=== PATIENT | female | born 1955 | race Caucasian/White ===

== ENCOUNTER → 2021-10-23 | Outpatient (CLI) | payer SELFPAY ==
--- NOTE | 2021-10-23 15:35 | RAD_ITS ---
EXAM: XR LEFT KNEE COMPLETE, 4 OR MORE VIEWS CLINICAL INDICATION: PAIN TECHNIQUE: Four or more views of the left knee. This report was created using [employer] report generation technology. COMPARISON: None. FINDINGS: BONES/JOINTS: Narrowing and bony spurring of the patellofemoral joint. Mild marginal osteophytosis. No acute fracture, subluxation or joint effusion. SOFT TISSUES: Unremarkable. No soft tissue swelling or gas. No radiopaque foreign body. RAD/Knee 4 or More Views IMPRESSION: Moderate arthritic changes of joint. Electronically Signed: Dameon Velarde MD at 16:57 EDT ,
[2021-10-23 17:14] LABS: BUN 16 mg/dL (7-18); Creatinine, Serum 1.08 mg/dL (0.55-1.02); Glucose 147 mg/dL (74-106)
[2021-10-23 17:15] LABS: Anion Gap 6 (5-15); BUN/Creat Ratio 14.8 RATIO (10-20); Calcium,Total 9.3 mg/dL (8.5-10.1); Chloride 107 mmol/L (98-107); Cholesterol 205 mg/dL (200); EST Glomerular Filtration Rate 54 mL/min (>60); Est Glom Filt Rate - Afr Amer 65 mL/min (>60); High Density Lipoprotein 44 mg/dL; Potassium 3.7 mmol/L (3.5-5.1); Sodium Level 142 mmol/L (136-145); Triglycerides 206 mg/dL; Very Low Density Lipoprotein 41 mg/dL (5-40)
== END | disposition home or self-care (01) ==
PROVIDERS: PCP Family Medicine; Referring Provider Family Medicine; Visit Provider Family Medicine
DX: I10 Essential (primary) hypertension (principal); M25.562 Pain in left knee
CPT/HCPCS: 36415; 73564; 80048; 80061

== ENCOUNTER → 2023-07-22 | Outpatient (CLI) | payer MEDICARE, OTHER, SELFPAY ==
--- NOTE | 2023-07-22 08:15 | RAD_ITS ---
INDICATION: pain EXAMINATION/TECHNIQUE: X-RAY - LEFT XR Knee Complete 4 Views or More 4 VIEWS COMPARISON: Prior study dated: 10/23/2021. FINDINGS: SOFT TISSUES: No soft tissue swelling or gas. No radiopaque foreign body. BONES/JOINTS: No acute fracture or subluxation.. Mild medial subluxation of the distal femur with respect to the proximal tibia. Moderate to severe narrowing of the medial joint compartment essentially new since previous exam. Small subchondral cystic changes of the medial tibial plateau. Mild marginal degenerative spurs of the lateral tibial plateau unchanged. Moderate to severe degenerative arthrosis of the patellofemoral joint unchanged since the previous exam. No evidence of joint effusion. No sclerotic or destructive changes observed. RAD/Knee 4 or More Views IMPRESSION: Degenerative arthrosis of the left knee markedly worse than previous exam. Electronically Signed: Saurabh Townsend MD at 10:17 EDT ,
--- NOTE | 2023-07-22 08:16 | RAD_ITS ---
INDICATION: pain EXAMINATION/TECHNIQUE: X-RAY - RIGHT XR Knee Complete 4 Views or More 4 VIEWS COMPARISON: Prior study dated: 02/24/2015 FINDINGS: SOFT TISSUES: No soft tissue swelling or gas. Vascular calcifications. BONES/JOINTS: No evidence of acute fracture or dislocation. Normal alignment. Severe narrowing of the medial joint compartment with sclerosis and subchondral cystic changes of the medial tibial plateau markedly worse than the previous exam. Mild to moderate degenerative arthrosis of the lateral joint compartment. Severe degenerative arthrosis of the patellofemoral joint unchanged. No evidence of joint effusion RAD/Knee 4 or More Views IMPRESSION: Degenerative arthrosis of the right knee markedly worse than the previous exam. Electronically Signed: Saurabh Townsend MD at 10:19 EDT ,
--- NOTE | 2023-07-22 08:16 | RAD_ITS ---
INDICATION: pain EXAMINATION/TECHNIQUE: X-RAY - XR Hips Bilateral with Pelvis when performed; 2 Views COMPARISON: No relevant prior comparison study available FINDINGS: PELVIC BONES: No displaced fracture, destructive or sclerotic lesions. Note that overlapping bowel shadows may however obscure fine detail. Sacroiliac joints are unremarkable. No widening of the pubic symphysis. HIPS: Mild narrowing of the hip joints. Degenerative changes of the visualized lower lumbar spine. SOFT TISSUES: No soft tissue swelling or gas. RAD/Hips B/L min 2 views w/ Pelvis IMPRESSION: Degenerative changes in the lower lumbar spine. Mild narrowing of the hip joints. Electronically Signed: Saurabh Townsend MD at 10:18 EDT ,
== END | disposition home or self-care (01) ==
PROVIDERS: PCP Family Medicine; Referring Provider Family Medicine; Visit Provider Family Medicine
DX: M19.90 Unspecified osteoarthritis, unspecified site (principal)
CPT/HCPCS: 73521; 73564

== ENCOUNTER → 2023-09-26 | Outpatient (CLI) | payer MEDICARE, OTHER, SELFPAY ==
[2023-09-26 18:19] LABS: ALB/GLOB Ratio 0.9 RATIO (0.9-2.4); AST(SGOT) 10 U/L (15-37); Alanine Aminotransfer ALT/SGPT 20 U/L (13-56); Albumin, Serum 3.4 g/dL (3.2-5.0); Alkaline Phosphatase 76 U/L (45-117); Anion Gap 9 (5-15); BUN 28 mg/dL (7-18); BUN/Creat Ratio 21.7 RATIO (10-20); Calcium,Total 9.4 mg/dL (8.5-10.1); Chloride 103 mmol/L (98-107); Creatinine, Serum 1.29 mg/dL (0.55-1.02); EST Glomerular Filtration Rate 43 mL/min (>60); Est Glom Filt Rate - Afr Amer 53 mL/min (>60); Globulin 3.7 g/dL (2.2-4.2); Glucose 331 mg/dL (74-106); Potassium 3.8 mmol/L (3.5-5.1); Protein, Total 7.1 g/dL (6.4-8.2); Sodium Level 135 mmol/L (136-145)
== END | disposition home or self-care (01) ==
LOC: MFPLAB 15:11
PROVIDERS: Nurse Practitioner Family; PCP Family Medicine; Visit Provider Family Medicine
DX: I10 Essential (primary) hypertension (principal)
CPT/HCPCS: 36415; 80053

== ENCOUNTER 2023-09-28 19:14 | Emergency (ER) | payer MEDICARE, OTHER, SELFPAY ==
[2023-09-28 19:14] VITALS: BP 231/125; PULSE 74; RESP 16; TEMP 36.7; O2SAT 95; BMI 36.3
--- NOTE | 2023-09-28 20:10 | EKG12_ITS ---
Test Reason : Blood Pressure : / mmHG Vent. Rate : 067 BPM Atrial Rate : 067 BPM P-R Int : 164 ms QRS Dur : 090 ms QT Int : 408 ms P-R-T Axes : 036 015 060 degrees QTc Int : 431 ms Normal sinus rhythm Minimal voltage criteria for LVH, may be normal variant ( R in aVL ) Nonspecific ST abnormality Abnormal ECG Confirmed by CHRISTOPHER GARCIA, SHARAN ([id number]), metropolitan editor HANNA GARZA ([id number]) on 10/03/2023 6:11:34 AM Referred By: Confirmed By:AURORA WHITE MD
--- NOTE | 2023-09-28 20:25 | RAD_ITS ---
STUDY: X-RAY CHEST REASON FOR EXAM: Female, 68 years old. cough TECHNIQUE: Single AP portable view of the chest. COMPARISON: None. FINDINGS: There is hyperinflation of the lungs consistent with chronic obstructive lung disease (COPD). No infiltrates or effusions There is no demonstrated pleural abnormality. There is mild cardiac enlargement. Normal mediastinum and rosalina. Normal visualized pulmonary arteries. Normal visualized aortic arch and descending thoracic aorta. There are diffuse degenerative changes of the visualized thoracic spine. Normal visualized ribs, clavicles, and shoulders. There is no demonstrated abnormality of the visualized soft tissue structures of the upper abdomen. RAD/Chest 1 View (Portable) IMPRESSION: There are findings consistent with COPD. There is no evidence of acute chest disease. Electronically Signed: Dave Jurado MD at 21:09 EDT ,
--- NOTE | 2023-09-28 20:25 | EX.ED.DYSGE1 ---
HPI <NAMRATA Layton - Last Filed: 09/28/23 21:47> History of Present Illness Chief Complaint: Hypertension Narrative Narrative: Patient is a 68-year-old female with history of hypertension, obesity who presents to the emergency department for uncontrolled high blood pressure. Patient states she has not seen a doctor in 2 years, went to the doctor 2 days ago, she does not remember the top number, the bottom number was 110. Patient was placed on lisinopril/hydrochlorothiazide 20?12 0.5. Patient states today she was taking her blood pressure and it was 200/100. She started to have a headache, and she is here for evaluation. Patient denies any chest pain, states to have intermittent shortness of breath however she also states this is when she is walking and this is normal. She denies any lower leg edema. Denies any dizziness. PFSH <NAMRATA Layton - Last Filed: 09/28/23 21:47> [facility] Medical History (Updated 09/28/23 @ 21:46 by NAMRATA Layton) Incisional hernia of anterior abdominal wall without obstruction or gangrene Arthritis Heart murmur Home Medications ?Medication ?Instructions ?Recorded ?Last Taken ?Type aspirin 81 mg tablet,delayed 81 mg PO QDAY 05/15/17 05/19/17 History release (Adult Low Dose Aspirin) calcium carbonate 600 mg-vitamin 1 cap PO ONCE 05/15/17 05/19/17 History D3 5 mcg (200 unit) capsule lisinopril 20 1 tab PO DAILY 09/28/23 Unknown History mg-hydrochlorothiazide 12.5 mg tablet metformin 500 mg tablet 500 mg PO BID #60 tabs 09/28/23 Unknown Rx Allergy/AdvReac Type Severity Reaction Status Date / Time hydrocodone (From Vicodin) Allergy Unknown Unknown Verified 09/28/23 19:18 Family History Mother Hypertension Father Diabetes Son Seizures Surgical History (Updated 06/07/17 @ 09:33 by Savannah Juarez) History of incisional hernia repair Dislocation, shoulder closed S/P appendectomy S/P cholecystectomy Social History (Updated 06/13/17 @ 10:[address] Marcy Gibson MD) Smoking Status: Never smoker second hand exposure: No alcohol intake: never substance use type: does not use caffeine: No what type of physical activity do you participate in: none frequency: does not exercise seatbelt use: always ROS <NAMRATA Layton - Last Filed: 09/28/23 21:47> ROS ED ROS Narrative Constitutional: Negative for fever, chills, weight loss, weakness Eyes: Negative for vision loss, vision change, double vision ENT: Negative for any sore throat, ear pain, congestion Cardiovascular: Negative for any chest pain, tightness, palp. Positive elevated blood pressure itations Respiratory: Negative for any cough, sputum production, hemoptysis, dyspnea, dyspnea on exertion, orthopnea Gastrointestinal: Negative for any abdominal pain, nausea, vomiting, diarrhea, constipation, blood in stool, blood in vomit : Negative for any urinary frequency, dysuria, retention, blood in urine Muscle skeletal: Negative for any neck pain, back pain Neurological: Negative for any syncope, dizziness. Positive for headache Skin: Negative for any rashes, itching, abrasions, lacerations Psychiatric: Negative for any depression, anxiety, stress, suicidal ideation, homicidal ideation Hematologic: Negative for any excessive bruising, easy bleeding EXAM <NAMRATA Layton - Last Filed: 09/28/23 21:47> Physical Exam Narrative Exam Narrative: Vital signs reviewed. I checked the patient's blood pressure, on the monitor 215/115. HEET: Head normocephalic atraumatic, TMs clear bilaterally. Posterior pharynx is clear, moist mucous membranes. Nares clear bilaterally. Pupils are equal round reactive to light. Neck: Supple with no lymphadenopathy or tenderness. No signs of meningismus. Cardiac: Regular rate and rhythm no murmurs gallops or rubs, equal peripheral pulses bilaterally. Respiratory: Lungs clear to auscultation bilaterally. No chest tenderness. Abdomen: Soft, nontender, nondistended. No abdominal bruit or pulsatile masses. No hepatosplenomegaly Extremities: No peripheral edema, no signs of gross trauma or deformity. Active full range of motion of all extremities. Neuro: Cranial nerves II through XII intact, no focal neurological deficits. NIH stroke scale 0 Skin: Clean dry and intact with no rash, purpura, petechiae, vesicles or pustules. Backs/flank: No CVA tenderness, no midline spinal tenderness, no deformity. Psych: Normal mood and affect. No SI, HI or acute psychosis. Const Vital Signs: 09/28/23 19:14 09/28/23 19:43 09/28/23 21:30 Temperature 98.1 F Temperature Source Temporal Pulse Rate 74 Respiratory Rate 16 Respiratory Effort Normal Respiratory Pattern Normal Blood Pressure 231/125 H 184/96 H Blood Pressure Mean 160 125 Pulse Ox 95 Oxygen Delivery Method Room Air Positive well nourished and well developed General Appearance ED: well developed <Dr. Jesús Botello DO - Last Filed: 09/28/23 22:04> Physical Exam Const Vital Signs: 09/28/23 19:14 09/28/23 19:43 09/28/23 21:30 Temperature 98.1 F Temperature Source Temporal Pulse Rate 74 Respiratory Rate 16 Respiratory Effort Normal Respiratory Pattern Normal Blood Pressure 231/125 H 184/96 H Blood Pressure Mean 160 125 Pulse Ox 95 Oxygen Delivery Method Room Air MDM <NAMRATA Layton - Last Filed: 09/28/23 21:47> MDM Lab Data Labs: Laboratory Results - last 24 hr 09/28/23 09/28/23 20:23 20:27 WBC 15.2 H RBC 5.06 Hgb 14.5 Hct 45.2 MCV 89.3 MCH 28.7 MCHC 32.1 RDW Std Deviation 45.4 H RDW Coeff of Terrell 14.0 Plt Count 390 MPV 9.9 Immature Gran % (Auto) 0.600 Neut % (Auto) 72.8 H Lymph % (Auto) 18.7 L Calvert % (Auto) 7.2 Eos % (Auto) 0.5 Baso % (Auto) 0.2 Absolute Neuts (auto) 11.1 H Absolute Lymphs (auto) 2.84 Nucleated RBC % 0 Sodium 136 Potassium 3.6 Chloride 105 Carbon Dioxide 25.0 Anion Gap 6 BUN 30 H Creatinine 0.98 Estim Creat Clear Calc 64.43 Est GFR (MDRD) Af Amer 72 Est GFR (MDRD) Non-Af 59 L BUN/Creatinine Ratio 30.5 H Glucose 221 H Calcium 8.7 Troponin I High Sens 15 Urine Color Yellow Urine Clarity Clear Urine pH 6.0 Ur Specific [place] 1.010 Urine Protein Negative Urine Glucose (UA) Normal Urine Ketones Negative Urine Occult Blood Negative Urine Nitrite Negative Urine Bilirubin Negative Urine Urobilinogen Normal Ur Leukocyte Esterase Negative Urine RBC 0 SEEN Urine WBC 0 SEEN Ur Squamous Epith Cells 0 SEEN Urine Bacteria 0 SEEN Urine Mucus 0 SEEN Radiography Diagnostic Testing: Clinical Impression(s) from Imaging Studies Chest X-Ray 09/28/23 20:25 IMPRESSION: There are findings consistent with COPD. There is no evidence of acute chest disease. Electronically Signed: Dave Jurado MD at 21:09 EDT , EKG Normal sinus rhythm: Attestation: I personally reviewed and interpreted this EKG as follows: Interpretation: Sinus Rhythm Comments: Normal sinus rhythm, rate of 67 bpm, TX interval 164 ms, QRS duration 90 ms, no acute ST elevation, no acute infarct noted. Treatment and Re-Evaluation :: Differential diagnosis includes however is not limited to: Hypertensive emergency, hypertensive urgency, ACS, AR, anxiety Patient appears to be in no obvious respiratory distress vital signs show hypertension the remainder of normal. Patient looks nontoxic. Patient will receive basic laboratory values including troponin. Patient will be checked for anemia, kidney function, urinalysis. Chest x-ray will be ordered. Patient will be given IV hydralazine, reevaluated. Patient was given 10 mg of IV hydralazine. Patient CBC shows slight leukocytosis white blood count 15.2 could be reactive. Chemistries were unremarkable. Patient's glucose was 221 which is elevated she has no history of type 2 diabetes. Troponin was negative. EKG was unremarkable. Chest x-ray showed no acute process. Some chronic changes concerning for COPD. Patient's repeat blood pressure was 184/96. At this time, I do the patient can continue to go home and start her lisinopril/hydrochlorothiazide. I will also add metformin 500 mg twice a day. She does have a follow-up appointment on Saturday this upcoming week with her PCP. She was given return precautions to return for any worsening headache, fever chills nausea or vomiting. All questions answered stable for discharge. <Dr. Jesús Botello DO - Last Filed: 09/28/23 22:04> [facility] History & Record Review Discussion w/independent historian: Patient Lab Data Attestation: I reviewed the patient's lab results. Labs: Laboratory Results - last 24 hr 09/28/23 09/28/23 20:23 20:27 WBC 15.2 H RBC 5.06 Hgb 14.5 Hct 45.2 MCV 89.3 MCH 28.7 MCHC 32.1 RDW Std Deviation 45.4 H RDW Coeff of Terrell 14.0 Plt Count 390 MPV 9.9 Immature Gran % (Auto) 0.600 Neut % (Auto) 72.8 H Lymph % (Auto) 18.7 L [place]vert % (Auto) 7.2 Eos % (Auto) 0.5 Baso % (Auto) 0.2 Absolute Neuts (auto) 11.1 H Absolute Lymphs (auto) 2.84 Nucleated RBC % 0 Sodium 136 Potassium 3.6 Chloride 105 Carbon Dioxide 25.0 Anion Gap 6 BUN 30 H Creatinine 0.98 Estim Creat Clear Calc 64.43 Est GFR (MDRD) Af Amer 72 Est GFR (MDRD) Non-Af 59 L BUN/Creatinine Ratio 30.5 H Glucose 221 H Calcium 8.7 Troponin I High Sens 15 Urine Color Yellow Urine Clarity Clear Urine pH 6.0 Ur Specific [place] 1.010 Urine Protein Negative Urine Glucose (UA) Normal Urine Ketones Negative Urine Occult Blood Negative Urine Nitrite Negative Urine Bilirubin Negative Urine Urobilinogen Normal Ur Leukocyte Esterase Negative Urine RBC 0 SEEN Urine WBC 0 SEEN Ur Squamous Epith Cells 0 SEEN Urine Bacteria 0 SEEN Urine Mucus 0 SEEN Radiography Diagnostic Testing: Clinical Impression(s) from Imaging Studies Chest X-Ray 09/28/23 20:25 IMPRESSION: There are findings consistent with COPD. There is no evidence of acute chest disease. Electronically Signed: Dave Jurado MD at 21:09 EDT , Treatment and Re-Evaluation :: Differential diagnosis includes however is not limited to: Hypertensive emergency, hypertensive urgency, ACS, AR, anxiety Patient appears to be in no obvious respiratory distress vital signs show hypertension the remainder of normal. Patient looks nontoxic. Patient will receive basic laboratory values including troponin. Patient will be checked for anemia, kidney function, urinalysis. Chest x-ray will be ordered. Patient will be given IV hydralazine, reevaluated. Patient was given 10 mg of IV hydralazine. Patient CBC shows slight leukocytosis white blood count 15.2 could be reactive. Chemistries were unremarkable. Patient's glucose was 221 which is elevated she has no history of type 2 diabetes. Troponin was negative. EKG was unremarkable. Chest x-ray showed no acute process. Some chronic changes concerning for COPD. Patient's repeat blood pressure was 184/96. At this time, I do the patient can continue to go home and start her lisinopril/hydrochlorothiazide. I will also add metformin 500 mg twice a day. She does have a follow-up appointment on Saturday this upcoming week with her PCP. She was given return precautions to return for any worsening headache, fever chills nausea or vomiting. All questions answered stable for discharge. Attending note: 68-year-old female presenting to the emergency room with hypertension. Patient states that she was recently at her doctor's office due to elevated blood pressure (aware she cannot really tell me what the numbers were) she was started on lisinopril HCT combination. She comes to emergency tonight significantly elevated. She notes an associated headache. No chest pain shortness of breath. Exam is nonfocal. Normal neurologic exam heart regular without murmur lung sounds clear and equal. Blood pressure is significantly elevated. Patient received hydralazine. Basic blood work shows hyperglycemia in fact the patient has had some hyperglycemia recently. Patient does not carry history of diabetes. We can start her on some metformin. I advised her that she should really follow-up with primary care. She should continue to take her lisinopril HCTZ combo. She will most likely need to have his medication adjusted and possibly another medication added but it all depends on how she initially responds. At this point patient to be discharged home return if worsening symptoms Discharge Plan Triage Chief Complaint: Hypertension ED Midlevel Provider: Major Cervantes ED Provider: Jesús Botello Dx/Rx/DC Orders Clinical Impression: Essential hypertension, Hyperglycemia Instructions: Controlling High Blood Pressure, Diabetes and Heart Disease, ED Diabetic Hyperglycemia Prescriptions: New metformin 500 mg tablet 500 mg PO BID Qty: 60 0RF No Action aspirin [Adult Low Dose Aspirin] 81 mg tablet,delayed release (DR/EC) 81 mg PO QDAY calcium carbonate-vitamin D3 600 mg calcium- 200 unit capsule 1 cap PO ONCE lisinopril-hydrochlorothiazide 20-12.5 mg tablet 1 tab PO DAILY Primary Care Provider: Janey Camp Referrals: Janey Camp MD [Primary Care Provider] - Activity Restrictions/Additional Instructions: Take your blood pressure in the morning and at the nighttime and write it down. Take your blood pressure medicine in the morning. The metformin you will take 1 in the morning 1 in the evening. If your blood pressure gets greater than 200 systolic which is the top number, you may take another one of your lisinopril's. Keep your appointment on Saturday Print Language: Lithuanian Disposition Disposition: Home, Self Care
[2023-09-28 20:38] LABS: Bacteria 0 SEEN /hpf (None Seen); Mucous, Urine 0 SEEN /hpf (<or=2+); Red Blood Cells-Urine 0 SEEN /hpf (0-5); Squamous Epithelial Cells - UA 0 SEEN /hpf (5-10); White Blood Cells 0 SEEN /hpf (0-5)
[2023-09-28] MEDS: hydrALAZINE 20 MG/ML Vial 10 MG IV (20:39)
[2023-09-28 20:40] LABS: Absolute Lymphocyte Count 2.84 X10^3/uL (0.83-4.51); Absolute Neutrophil Count 11.1 X10^3/uL (2.0-7.7); Basophil# 0.03 X10^3/uL; Basophil% 0.2 % (0-1); Eosinophil# 0.07 X10^3/uL; Eosinophils% 0.5 % (0-5); Hematocrit 45.2 % (37-47); Hemoglobin 14.5 g/dL (12.0-15.0); Lymphocyte # 2.84 X10^3/ul (0.83-4.51); Lymphocyte % 18.7 % (19-41); Mean Corp Hgb Conc 32.1 g/dL (32-36); Mean Corpuscular Hgb 28.7 pg (27.0-32.0); Mean Corpuscular Volume 89.3 fL (81-99); Mean Platelet Vol. 9.9 fl (6.2-12.0); Monocyte# 1.09 X10^3/uL; Monocyte% 7.2 % (0-10); NRBC Flagged by Analyzer 0 % (0-5); Neutrophil # 11.09 X10^3/uL (2.7-7.7); Neutrophil % 72.8 % (47-70); Platelet Count 390 K/mm3 (150-450); RBC Distribution Width SD 45.4 fl (35.1-43.9); Red Blood Count 5.06 M/mm3 (4.2-5.4); White Blood Count 15.2 K/mm3 (4.4-11.0)
[2023-09-28 20:42] LABS: Color, Urine Yellow (Yellow); Glucose, Dipstick Normal (Normal); Ketone-Dipstick Negative (Negative); Leukocyte Esterase-Dipstick Negative /ul (Negative); Nitrite-Dipstick Negative (Negative); Occult Blood-Urine Negative /ul (Negative); Protein-Dipstick Negative (Negative); Urine Bilirubin Dipstick Negative (Negative); Urine Clarity Clear (Clear); Urine Urobilinogen Normal (Normal)
[2023-09-28 21:01] LABS: Anion Gap 6 (5-15); BUN 30 mg/dL (7-18); BUN/Creat Ratio 30.5 RATIO (10-20); Calcium,Total 8.7 mg/dL (8.5-10.1); Chloride 105 mmol/L (98-107); Creatinine, Serum 0.98 mg/dL (0.55-1.02); EST Glomerular Filtration Rate 59 mL/min (>60); Est Glom Filt Rate - Afr Amer 72 mL/min (>60); Estimated Creatinine Clearance 64.43 ml/min; Glucose 221 mg/dL (74-106); Potassium 3.6 mmol/L (3.5-5.1); Sodium Level 136 mmol/L (136-145); Troponin-I HS 15 pg/mL (3.0-54.0)
[2023-09-28 21:30] VITALS: BP 184/96
[2023-09-28 22:00] VITALS: BP 186/97; PULSE 82; RESP 16; TEMP 36.9; O2SAT 99
== END 2023-09-28 22:14 | disposition home or self-care (01) ==
PROVIDERS: Nurse Practitioner; Emergency Provider Emergency Medicine; PCP Family Medicine; Visit Provider Emergency Medicine
DX: I10 Essential (primary) hypertension (principal); E66.9 Obesity, unspecified; R73.9 Hyperglycemia, unspecified; Z79.82 Long term (current) use of aspirin; Z79.899 Other long term (current) drug therapy
CPT/HCPCS: 71045; 80048; 81001; 84484; 85025; 93005; 96374; 99283; A4216

== ENCOUNTER → 2023-11-13 | Outpatient (CLI) | payer MEDICARE, OTHER, SELFPAY ==
--- NOTE | 2023-11-13 10:29 | US_ITS ---
STUDY: ULTRASOUND TRANSVAGINAL CLINICAL: Female, 68 years old. POSTMENOPAUSE BLEEDING TECHNIQUE: Transvaginal COMPARISON: None. FINDINGS: Normal uterine size measuring 9.4 x 5.6 x 3.9 cm in maximal craniocaudal dimension. There are no myometrial masses. Normal endometrial thickness measuring 28 mm. There are no endometrial masses, and there is no fluid in the endometrial cavity. 4 cm exophytic heterogeneous mass of the left side of the lower uterine segment or cervix possibly consistent with an extra except subserosal fibroid. The ovaries are nonvisualized.. There is no free fluid in the pelvis. Polycystic ovary disease: No. US/Transvaginal Non- IMPRESSION: 1. Thickened endometrium worrisome for endometrial hyperplasia or possibly mass. Hysteroscopy may be useful. 2. Suspect 4 cm exophytic mass of the left side of the lower uterine segment or cervix possibly exophytic subserosal fibroid. Pelvic MRI may be useful. 3. Nonvisualization ovaries. Electronically Signed: Joshua Warren MD at 12:37 EDT ,
== END | disposition home or self-care (01) ==
LOC: US 10:26
PROVIDERS: PCP Family Medicine; Referring Provider Family Medicine; Visit Provider Family Medicine
DX: N95.0 Postmenopausal bleeding (principal)
CPT/HCPCS: 76830

== ENCOUNTER 2023-12-12 11:46 | Emergency (ER) | payer MEDICARE, OTHER, SELFPAY ==
[2023-12-12 11:47] VITALS: BP 209/121; BP 223/123; PULSE 76; PULSE 78; RESP 14; RESP 16; TEMP 36.1; O2SAT 96; BMI 34.9
--- NOTE | 2023-12-12 12:02 | EKG12_ITS ---
Test Reason : HTN Blood Pressure : / mmHG Vent. Rate : 071 BPM Atrial Rate : 071 BPM P-R Int : 164 ms QRS Dur : 082 ms QT Int : 418 ms P-R-T Axes : 043 010 098 degrees QTc Int : 454 ms Normal sinus rhythm Minimal voltage criteria for LVH, may be normal variant ( R in aVL ) Nonspecific ST and T wave abnormality Abnormal ECG Confirmed by CHRISTOPHER GARCIA, SHARAN ([id number]), editor publications CHAR HASTINGS ([id number]) on 12/16/2023 8:43:14 AM Referred By: Confirmed By:AURORA WHITE MD
--- NOTE | 2023-12-12 12:02 | EX.ED.DYSGE1 ---
HPI History of Present Illness Chief Complaint: Hypertension Detail of Chief Complaint: High blood pressure Informant: patient Narrative Narrative: Patient presents to the emergency department with complaint of elevated blood pressure. Patient states that he she was at the [facility] [place] because she needed to have a uterine biopsy and when they checked her blood pressure was elevated. After the biopsy they told her to come get evaluated in the emergency department. Patient has history of hypertension and does take lisinopril with hydrochlorothiazide and it and normally takes 2 tablets every morning of the 20 mg over 12.5 mg dose. Patient otherwise denies complaints other than she is feeling stressed. She denies chest pain or shortness of breath. Denies headaches. Denies recent illness. She denies any new medications. Patient states that at home typically when she checks her blood pressure it is in the 160s systolic over about 100 diastolic. [facility] Medical History Incisional hernia of anterior abdominal wall without obstruction or gangrene Arthritis Heart murmur Home Medications ?Medication ?Instructions ?Recorded ?Last Taken ?Type aspirin 81 mg tablet,delayed 81 mg PO QDAY 05/15/17 05/19/17 History release (Adult Low Dose Aspirin) calcium carbonate 600 mg-vitamin 1 cap PO ONCE 05/15/17 05/19/17 History D3 5 mcg (200 unit) capsule lisinopril 20 1 tab PO DAILY 09/28/23 Unknown History mg-hydrochlorothiazide 12.5 mg tablet metformin 500 mg tablet 500 mg PO BID #60 tabs 09/28/23 Unknown Rx Allergy/AdvReac Type Severity Reaction Status Date / Time hydrocodone (From Vicodin) Allergy Unknown Unknown Verified 12/12/23 11:47 Family History Mother Hypertension Father Diabetes Son Seizures Surgical History History of incisional hernia repair Dislocation, shoulder closed S/P appendectomy S/P cholecystectomy Social History Smoking Status: Never smoker second hand exposure: No alcohol intake: never substance use type: does not use caffeine: No what type of physical activity do you participate in: none frequency: does not exercise seatbelt use: always ROS ROS ED ROS Narrative Hypertension Review of Systems ROS Unobtainable: other Constitutional Constitutional ED: Reports lethargy; Denies chills, fever(s), sweats or weight loss Eyes Eyes: Denies blurry vision, change in vision or diplopia ENT ENT ED: Denies rhinorrhea or sore throat Cardiovascular Cardiovascular: Denies chest pain, orthopnea or racing heartbeat Respiratory/Chest Respiratory/Chest: Denies cough, dyspnea, dyspnea on exertion, orthopnea or sputum Gastrointestinal Gastrointestinal: Denies abdominal pain, diarrhea, nausea or vomiting Genitourinary Genitourinary ED: Denies dysuria, hematuria or urinary frequency Musculoskeletal Musculoskeletal: Denies arthralgias, back pain, myalgias or neck pain Integumentary Denies abscess, Abrasions or rash Neurologic Neurologic: Denies headache(s) or weakness Psychiatric Psychiatric: Denies anxiety, depression or suicidal thoughts Endocrine Endocrinology: Denies polydipsia, polyphagia or polyuria Hematologic/Lymphatic Hematologic/Lymphatic: Denies easy bleeding, easy bruising or lymphadenopathy Allergic/Immunologic Allergic/Immunologic ED: Denies mouth swelling, tongue swelling or urticaria EXAM Physical Exam Const Vital Signs: 12/12/23 11:47 12/12/23 11:47 12/12/23 12:01 Temperature 97 F L Temperature Source Temporal Pulse Rate 76 78 Respiratory Rate 14 16 Respiratory Pattern Normal Blood Pressure 223/123 H 209/121 H Blood Pressure Mean 156 150 Pulse Ox 96 96 Oxygen Delivery Method Room Air Room Air Positive well nourished and well developed General Appearance ED: well developed and NAD HEENT Reports TM's clear and moist mucous membranes normocephalic and atraumatic; Negative for trauma or tenderness Tympanic Membrane ED: Yes TM's clear Eyes PERRL and EOMs intact bilaterally General Eye ED: Negative for pale conjunctiva or scleral icterus Neck no lymphadenopathy, supple and no JVD General: Negative for tenderness Chest Wall inspection of chest normal and palpation of chest normal Chest: Negative for tenderness Resp normal respiratory effort and clear to auscultation bilaterally Effort and Inspection: Negative for respiratory distress or pain with movement Auscultation: Negative for rhonchi, wheezes or diminished lung sounds Cardio regular rate, regular rhythm, S1 normal heart sound, S2 normal heart sound and no murmurs Peripheral Pulses: pulses 2+ throughout GI normal to inspection, nondistended, normoactive bowel sounds, soft to palpation, non-tender, non-distended and no masses Back/Spine no CVA tenderness and no thoracic nor lumbar tenderness Extremity normal to inspection General Extremety ED: Negative for edema General Extremity: Negative for edema Neuro oriented x3, CN's II-XII intact bilaterally, no sensory deficits noted and gait normal Sensorium / Orientation: awake, alert, oriented to person, oriented to place and oriented to time Motor Exam: strength 5/5 throughout and strength abnormal Psych mental status grossly normal Skin no rashes or lesions noted and no wounds MDM MDM MDM Narrative Medical decision making narrative: Patient presents with asymptomatic hypertension. She was getting ready to have a uterine biopsy. Patient states has been stressed and nervous. Denies chest pain or shortness of breath. On arrival blood pressure elevated initially 223/123. Patient placed on a media monitor. EKG obtained showed a sinus rhythm with ventricular rate of [address] changes. CBC with differential of patient awake at 11.1 with hemoglobin 13.7 and platelet count of 333. Chemistry is unremarkable. Troponin normal at 11. Urinalysis unremarkable. While in the department she was not medicated and without treatment her latest blood pressure 144/91. Clinically she is asymptomatic and looks well. Will discharge to home diagnose hypertension. She is advised to take her blood pressure daily and keep a journal and follow-up with her primary care physician within next 5 to 7 days. Patient to return if severe headache, chest pain, shortness of breath, or condition worsening way. Lab Data Attestation: I reviewed the patient's lab results. Labs: Laboratory Results - last 24 hr 12/12/23 12:09 WBC 11.1 H RBC 4.76 Hgb 13.7 Hct 42.6 MCV 89.5 MCH 28.8 MCHC 32.2 RDW Std Deviation 47.3 H RDW Coeff of Terrell 14.4 Plt Count 333 MPV 9.9 Immature Gran % (Auto) 0.400 Neut % (Auto) 58.7 Lymph % (Auto) 31.2 Howard % (Auto) 6.0 Eos % (Auto) 3.1 Baso % (Auto) 0.6 Absolute Neuts (auto) 6.5 Absolute Lymphs (auto) 3.47 Nucleated RBC % 0 Sodium 143 Potassium 3.4 L Chloride 107 Carbon Dioxide 29.0 Anion Gap 7 BUN 22 H Creatinine 0.90 Estim Creat Clear Calc 68.70 Est GFR (MDRD) Af Amer 79 Est GFR (MDRD) Non-Af 66 BUN/Creatinine Ratio 24.4 H Glucose 111 H Calcium 9.5 Troponin I High Sens 11 Urine Color Yellow Urine Clarity Clear Urine pH 5.0 Ur Specific Gary 1.025 Urine Protein 30 H Urine Glucose (UA) Normal Urine Ketones Negative Urine Occult Blood 250 H Urine Nitrite Negative Urine Bilirubin Negative Urine Urobilinogen Normal Ur Leukocyte Esterase 25 H Urine RBC 0 SEEN Urine WBC 0-5 SEEN Ur Squamous Epith Cells 5-10 SEEN Urine Bacteria 0 SEEN Urine Mucus 1+ EKG Initial EKG: Attestation: I personally reviewed and interpreted this EKG as follows: Comments: Sinus rhythm with a ventricular rate of [address] changes Prior EKG tracings: available for review Prior: Unchanged Discharge Plan Triage Chief Complaint: Hypertension ED Provider: Chica Marin Dx/Rx/DC Orders Clinical Impression: Hypertension Instructions: ED Hypertension, Established Prescriptions: No Action aspirin [Adult Low Dose Aspirin] 81 mg tablet,delayed release (DR/EC) 81 mg PO QDAY calcium carbonate-vitamin D3 600 mg calcium- 200 unit capsule 1 cap PO ONCE lisinopril-hydrochlorothiazide 20-12.5 mg tablet 1 tab PO DAILY metformin 500 mg tablet 500 mg PO BID Qty: 60 0RF Primary Care Provider: Janey Camp Referrals: Janey Camp MD [Primary Care Provider] - Activity Restrictions/Additional Instructions: Follow-up with Dr. Camp within the next 5 to 7 days. Print Language: Cameroonian Disposition Disposition: Home, Self Care
[2023-12-12 12:21] LABS: Bacteria 0 SEEN /hpf (None Seen); Red Blood Cells-Urine 0 SEEN /hpf (0-5)
[2023-12-12 12:31] LABS: Absolute Lymphocyte Count 3.47 X10^3/uL (0.83-4.51); Absolute Neutrophil Count 6.5 X10^3/uL (2.0-7.7); Basophil# 0.07 X10^3/uL; Basophil% 0.6 % (0-1); Eosinophil# 0.34 X10^3/uL; Eosinophils% 3.1 % (0-5); Hematocrit 42.6 % (37-47); Hemoglobin 13.7 g/dL (12.0-15.0); Lymphocyte # 3.47 X10^3/ul (0.83-4.51); Lymphocyte % 31.2 % (19-41); Mean Corp Hgb Conc 32.2 g/dL (32-36); Mean Corpuscular Hgb 28.8 pg (27.0-32.0); Mean Corpuscular Volume 89.5 fL (81-99); Mean Platelet Vol. 9.9 fl (6.2-12.0); Monocyte# 0.67 X10^3/uL; NRBC Flagged by Analyzer 0 % (0-5); Neutrophil # 6.54 X10^3/uL (2.7-7.7); Neutrophil % 58.7 % (47-70); Platelet Count 333 K/mm3 (150-450); RBC Distribution Width CV 14.4 % (11.6-14.6); RBC Distribution Width SD 47.3 fl (35.1-43.9); Red Blood Count 4.76 M/mm3 (4.2-5.4); White Blood Count 11.1 K/mm3 (4.4-11.0)
[2023-12-12 12:45] LABS: Color, Urine Yellow (Yellow); Glucose, Dipstick Normal (Normal); Ketone-Dipstick Negative (Negative); Leukocyte Esterase-Dipstick 25 /ul (Negative); Nitrite-Dipstick Negative (Negative); Occult Blood-Urine 250 /ul (Negative); Protein-Dipstick 30 mg/dl (Negative); Specific Gravity, Urine 1.025 (1.002-1.030); Urine Bilirubin Dipstick Negative (Negative); Urine Clarity Clear (Clear); Urine Urobilinogen Normal (Normal)
[2023-12-12 12:48] LABS: Anion Gap 7 (5-15); BUN 22 mg/dL (7-18); BUN/Creat Ratio 24.4 RATIO (10-20); Calcium,Total 9.5 mg/dL (8.5-10.1); Chloride 107 mmol/L (98-107); EST Glomerular Filtration Rate 66 mL/min (>60); Est Glom Filt Rate - Afr Amer 79 mL/min (>60); Glucose 111 mg/dL (74-106); Potassium 3.4 mmol/L (3.5-5.1); Sodium Level 143 mmol/L (136-145); Troponin-I HS 11 pg/mL (3.0-54.0)
[2023-12-12 13:01] LABS: Mucous, Urine 1+ /hpf (<or=2+); Squamous Epithelial Cells - UA 5-10 SEEN /hpf (5-10); White Blood Cells 0-5 SEEN /hpf (0-5)
[2023-12-12 13:11] VITALS: BP 144/92; PULSE 68; RESP 19; TEMP 36.4; O2SAT 94
== END 2023-12-12 13:15 | disposition home or self-care (01) ==
PROVIDERS: Emergency Provider Emergency Medicine; PCP Family Medicine; Visit Provider Emergency Medicine
DX: I10 Essential (primary) hypertension (principal); Z79.899 Other long term (current) drug therapy
CPT/HCPCS: 80048; 81001; 84484; 85025; 88305; 93005; 99284; A4216

== ENCOUNTER → 2023-12-12 | Outpatient (CLI) | payer MEDICARE, OTHER, SELFPAY ==
--- NOTE | 2023-12-12 11:15 | EMB_PTH ---
PATIENT: FRANCHESKA CROSS LOC: [facility] U#:[id number] AGE/SX: 68/F ROOM: RE12/12/[address]: ANMRATA Aguilar : 1955 BED: DIS: 12/12/2023 SPEC #: [id number] RECD: 12/12/23 14:14 STATUS: MARISA REGeeta #: [id number] NICOLE: 12/12/23 11:[address]: Yen Felder NP DEPT: SURGICAL PATHOLOGY RECD BY: Muna Calero ENTERED: 12/13/23 07:11 SP TYPE: ENDOM BX/C CHILAN[place] DR: Dr. Janey Camp MD Tissues: Endometrium, NOS Procedures: Surgery Specimen Level IV HEADER OPERATION: Endometrial biopsy PRE-OP DIAGNOSIS: Postmenopausal bleeding TISSUE SUBMITTED: Endometrial lining MICROSCOPIC DIAGNOSIS Endometrial biopsy: Simple cystic hyperplasia without atypia. See ender. 12/16/2023 COMMENT Clinical correlation and appropriate follow up are necessary. Case has been reviewed in consultation with Dr. Ware who concurs with the above diagnosis. IDC:AM MICROSCOPIC DESCRIPTION Slides are reviewed. GROSS DESCRIPTION Received is one container labeled with the patient's name and not further designated. The specimen consists of multiple irregular fragments of hemorrhagic soft tissue mixed with mucoid tissue that in aggregate measure 2.5 x 1.8 x 0.1 cm. The specimen is totally submitted in one cassette. GWEN/ 12/13/2023 TC:5 CPT:04361
== END | disposition home or self-care (01) ==
LOC: LABSPEC 14:44
PROVIDERS: PCP Family Medicine; Referring Provider Nurse Practitioner Women's Health; Visit Provider Nurse Practitioner Women's Health
DX: N95.0 Postmenopausal bleeding (principal)
CPT/HCPCS: 88305

== ENCOUNTER → 2023-12-31 | Outpatient (CLI) | payer MEDICARE, OTHER, SELFPAY ==
[2023-12-31 12:37] LABS: Protein, Urine (Random) 6.9 mg/dL (<11.9); Protein:Creat Ratio 102 mg/g CRE (0-200)
[2023-12-31 14:03] LABS: Anion Gap 9 (5-15); BUN 24 mg/dL (7-18); BUN/Creat Ratio 28.7 RATIO (10-20); Calcium,Total 9.7 mg/dL (8.5-10.1); Chloride 104 mmol/L (98-107); Cholesterol 224 mg/dL (200); Creatinine, Serum 0.84 mg/dL (0.55-1.02); EST Glomerular Filtration Rate 72 mL/min (>60); Est Glom Filt Rate - Afr Amer 87 mL/min (>60); Glucose 170 mg/dL (74-106); High Density Lipoprotein 47 mg/dL; Potassium 3.4 mmol/L (3.5-5.1); Sodium Level 140 mmol/L (136-145); Triglycerides 151 mg/dL; Very Low Density Lipoprotein 30 mg/dL (5-40)
== END | disposition home or self-care (01) ==
LOC: MTLAB 10:19
PROVIDERS: PCP Family Medicine; Referring Provider Family Medicine; Visit Provider Family Medicine
DX: I10 Essential (primary) hypertension (principal)
CPT/HCPCS: 36415; 80048; 80061; 82570; 84156

== ENCOUNTER 2024-02-04 10:28 | Day surgery (SDC) | payer MEDICARE, OTHER, SELFPAY ==
--- NOTE | 2024-01-30 08:32 | EKG12_ITS ---
Test Reason : PRE OP Blood Pressure : / mmHG Vent. Rate : 072 BPM Atrial Rate : 072 BPM P-R Int : 166 ms QRS Dur : 078 ms QT Int : 398 ms P-R-T Axes : 042 010 074 degrees QTc Int : 435 ms Normal sinus rhythm with sinus arrhythmia Nonspecific ST and T wave abnormality Abnormal ECG Confirmed by Marcelo Vizcaino ([id number]), editorial intern HANNA GARZA ([id number]) on 01/31/2024 5:59:52 AM Referred By: Selina Beal Confirmed By:Marcelo Vizcaino
[2024-01-30 10:28] LABS: ALB/GLOB Ratio 1.2 RATIO (0.9-2.4); AST(SGOT) 14 U/L (15-37); Alanine Aminotransfer ALT/SGPT 17 U/L (13-56); Albumin, Serum 3.6 g/dL (3.2-5.0); Alkaline Phosphatase 49 U/L (45-117); Anion Gap 5 (5-15); BUN 20 mg/dL (7-18); BUN/Creat Ratio 22.5 RATIO (10-20); Calcium,Total 9.3 mg/dL (8.5-10.1); Chloride 104 mmol/L (98-107); Creatinine, Serum 0.89 mg/dL (0.55-1.02); EST Glomerular Filtration Rate 67 mL/min (>60); Est Glom Filt Rate - Afr Amer 81 mL/min (>60); Globulin 3.1 g/dL (2.2-4.2); Glucose 128 mg/dL (74-106); Potassium 3.3 mmol/L (3.5-5.1); Protein, Total 6.7 g/dL (6.4-8.2); Sodium Level 141 mmol/L (136-145)
[2024-01-30 10:31] LABS: Hemoglobin A1c 6.6 % (3.8-5.6)
[2024-01-30 10:37] LABS: AST(SGOT) 8 U/L (15-37); Alanine Aminotransfer ALT/SGPT 18 U/L (13-56); Cholesterol 151 mg/dL (200); High Density Lipoprotein 55 mg/dL; Triglycerides 130 mg/dL; Very Low Density Lipoprotein 26 mg/dL (5-40)
[2024-02-04] VITALS (7 sets, daily range): BP systolic 119–140; BP diastolic 72–87; PULSE 69–77; RESP 14–20; TEMP 36.2–37; O2SAT 93–97; BMI 34.0
--- NOTE | 2024-02-04 07:35 | PCM.HP.BLA ---
History and Physical Date of Admission: 02/04/24 Intake Vital Signs 12/11/2410:47 01/23/2413:13 01/23/2413:21 Height 5 ft 6 in 5 ft 6 in 5 ft 6 in Weight: 213 lb BMI 34.3 BP 149/79 H Blood Pressure Location Lt brachial Position Sitting Intake Visit Reasons: consult/preop D&C with [facility] Meal Temperer Required: No Is patient in pain?: Yes (arthritis pain) Allergies hydrocodone (From Vicodin) Allergy (Unknown, Verified 01/24/24 13:13) Unknown Medications ?Medication ?Instructions ?Recorded ?Confirmed ?Type aspirin 81 mg tablet,delayed 81 mg PO QDAY 05/15/17 01/24/24 History release (Adult Low Dose Aspirin) calcium carbonate 600 mg-vitamin 1 cap PO ONCE 05/15/17 01/22/24 History D3 5 mcg (200 unit) capsule lisinopril 20 2 tab PO DAILY 09/28/23 01/24/24 History mg-hydrochlorothiazide 12.5 mg tablet metformin 500 mg tablet 500 mg PO BID #60 tabs 09/28/23 01/24/24 Rx amlodipine 5 mg tablet 5 mg PO QHS 01/22/24 01/24/24 History atorvastatin 10 mg tablet 10 mg PO QHS 01/22/24 01/24/24 History turmeric 400 mg capsule 400 mg PO DAILY 01/22/24 01/24/24 History antiarthritic combination no.2 900 mg PO 01/24/24 01/24/24 History mg tablet (glucosamine-chondroitin) cholecalciferol (vitamin D3) 125 125 mcg PO QDAY 01/24/24 01/24/24 History mcg (5,000 unit) capsule Is last menstrual period known: No Post menopausal: Yes Patient : No : No [facility] Medical History Wears glasses Diabetes Ambulates with cane High cholesterol Non-smoker Incisional hernia of anterior abdominal wall without obstruction or gangrene Arthritis Heart murmur Surgical History History of incisional hernia repair Dislocation, shoulder closed S/P appendectomy S/P cholecystectomy Family History Mother HypertensionFather DiabetesSon Seizures Social History (Updated 01/24/24 @ 13:18 by Yen Cho) number of children: 6 Smoking Status: Never smoker second hand exposure: No alcohol intake: never substance use type: does not use caffeine: No what type of physical activity do you participate in: none frequency: does not exercise seatbelt use: always additional social history: Sanchez HPI consult/preop D&C with symphion Details: FRANCHESKA CROSS is a 68 year old who presents for endometrial hyperplasia, she had PMB over the summer, US showed 23 mm thickening. she had pap smears done in the past that were normal, unsure when the last one was. she denies any bleeidng now. no pelvic pain or pressure now. Female Reproductive History Menopausal Symptoms: No night sweats History Past Pregnancies Del. Date Name GA/Weeks Outcome Route Bth Weight Gen Labor Lgth Anesthesia Del Locatn Provider FOB Unknown Alex Unknown Kyle Unknown Hever Unknown Huang Unknown Syd Unknown Liliana ROS Const Constitutional: Denies fatigue, night sweats, weight gain or weight loss ENT ENT: Reports system reviewed and no additional complaints, except as documented Cardio Card: Denies chest pain Resp Resp: Denies cough or dyspnea GI GI: Reports as per HPI; Denies abdominal pain, constipation, nausea or vomiting : Reports urinary frequency, urinary incontinence and urinary urgency; Denies nipple discharge, urinary hesitancy, vaginal discharge, vaginal dryness, vaginal odor or vaginal pruritus Musc Musc: Reports arthralgias and back pain; Denies muscle weakness Skin Skin/Breast: Denies alopecia, change in hair, dry skin, breast mass, breast pain, breast skin changes or nipple discharge Neuro Neuro: Reports system reviewed and no additional complaints, except as documented Psych Psych: Reports system reviewed and no additional complaints, except as documented Endo Endo: Denies cold intolerance, excessive sweating, heat intolerance or polydipsia Joseph/Lymph Hematologic/Lymphatic: Denies easy bleeding, Denies easy bruising and Denies lymphadenopathy Exam Const General: cooperative, healthy appearing, comfortable and no acute distress Orientation: alert HENDE Head: normal to inspection and normocephalic Ears: hearing grossly normal bilaterally and external ears normal Nose: external nose normal and nares normal Face and sinus: normal facial exam Neck Neck: normal visual inspection and no lymphadenopathy Thyroid: thyroid normal Chest Chest palpation & inspection: normal inspection of the chest Resp Effort & Inspection: normal respiratory effort Auscultation: clear to auscultation bilaterally Cardio Rate: regular rate Rhythm: regular rhythm Heart Sounds: S1 normal and S2 normal GI Inspection: normal to inspection and non-distended Palpation: soft and no hepatosplenomegaly Musc Other: gross motor intact no deficits, full bilateral strength Skin General: no rashes or lesions noted Neuro General: patient alert, patient awake, moves all extremities and no focal motor deficits Motor: muscle tone normal throughout Extrem General: normal to inspection and no pedal edema Psych Appearance: grossly normal Mental Status: mental status grossly normal Affect: normal affect Speech and Movement: speech and movement normal Coding Level of Care Code Off vis,est,level 4 Diagnoses Thickened endometrium R93.89 Postmenopausal bleeding N95.0 Assessment and Plan Assessment and Plan (1) Thickened endometrium: Status: Acute Comment: 23 mm (2) Postmenopausal bleeding: Status: Acute Comment: simple hyperplasia without atypia. d and c hysteroscopy Plan After discussing the patient's diagnosis and treatment plan options, patient wishes to proceed with surgical management. I have discussed with the patient the risks, benefits, and alternatives of the procedure which include but are not limited to risks of anesthesia, bleeding, infection, possible damage to bowel, bladder, or surrounding vasculature which could lead to additional surgery to evaluate any complications. Patient agrees to procedure and wishes to proceed. ACOG/uptodate references given for additional information regarding procedure. UPDATE- I have seen the patient and performed any clinically relevant updates to the history and physical exam. Selina Beal MD
[2024-02-04] MEDS: Lactated Ringers 1,000 ML 15 ML IV (11:05)
[2024-02-04 11:31] LABS: Potassium 3.5 mmol/L (3.5-5.1)
--- NOTE | 2024-02-04 11:46 | PCM.PRE.AN2 ---
ASA Classification* ASA Classification ASA Classification: 2 Assessment & Plan Anesthesia* Anesthesia Assessment Anesthesia Assessment: Discussed sedation and/or anesthesia options, risks, benefits, and alternatives with patient/parents/legal guardian/POA. Questions invited. The patient/parents/legal guardian/POA seems to understand and agrees to proceed with anesthesia plan. Reviewed the physical assessment, medical history, allergy history and patient home medications list prior to surgery/procedure/anesthetic and documented any changes. Performed airway and anesthesia risk assessments. Anesthesia Type Anesthesia Type: MAC History Source History Obtained from:: Patient and Chart Anesthesia Focused Assessment* Temperature: 98.6 F Pulse Rate: 71 Blood Pressure: 127/72 Respiratory Rate: 18 Pulse Ox: 97 Oxygen Delivery Method: Room Air Airway Assessment Mouth opens: >3 cm Mallampati Score: IV Teeth Condition: Missing (Few missing teeth. Rest are tight.) Neck Range of motion (ROM): Full ROM Pertinent Findings EKG Pertinent Findings:: January 30, 2024. Normal sinus rhythm with sinus arrhythmia. Nonspecific ST and T wave abnormalities. Focused Labs Anesthesia Preop lab: CBC WBC 11.1 K/mm3 (4.4-11.0) H 12/12/23 12:09 RBC 4.76 M/mm3 (4.2-5.4) 12/12/23 12:09 Hgb 13.7 g/dL (12.0-15.0) 12/12/23 12:09 Hct 42.6 % (37-47) 12/12/23 12:09 Plt Count 333 K/mm3 (150-450) 12/12/23 12:09 CHEMISTRY Potassium 3.5 mmol/L (3.5-5.1) 02/04/24 11:05 Sodium 141 mmol/L (136-145) 01/30/24 08:52 BUN 20 mg/dL (7-18) H 01/30/24 08:52 Creatinine 0.89 mg/dL (0.55-1.02) 01/30/24 08:52 COAG Lab additional comments: Fingerstick blood sugar was 150. 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 When Was Last Pacemaker Check QUESTION #4 FULL TEXT: You/Your Family Experience fever (hyperthermia) with Anesthesia Last Oral Intake Last Oral intake: Last Oral Intake NPO since 19:30 02/04/24 11:05 Meds taken in AM with sips of Yes 02/04/24 11:05 water? 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 Female Yes 01/22/24 14:35 HX of Motion Sickness No 01/22/24 14:35 HX of N/V After Surgery No 01/22/24 14:35 Non-Smoker Yes 01/22/24 14:35 Duration of Surgery greater No 01/22/24 14:35 than 60 minutes Number of Risk Factors 2 01/22/24 14:35 PONV Score Moderate Risk 01/22/24 14:35 Height & Weight Height & Weight: Anesthesia: Height & Weight Height 5 ft 6 in 02/04/24 11:05 Weight: 95.7 kg 02/04/24 11:05 Body Mass Index (BMI) 34.0 02/04/24 11:05 Respiratory Assessment Respiratory Assessment - carton making machine operator: Respiratory Tract Infection Hx - carton making machine operator Hx Respiratory Tract Infection No 01/22/24 14:35 STOP Sleep Apnea STOP Sleep Apnea - carton making machine operator: STOP Sleep Apnea - carton making machine operator Hx Hypertension Yes: CONTROLLED WITH MED 01/22/24 14:35 Hx Sleep Apnea No 01/22/24 14:35 CPAP BIPAP Do you snore loudly (louder No 01/22/24 14:35 than talking or can be heard Do you often feel tired/ No 01/22/24 14:35 fatigued/ sleepy during daytime? Has anyone observed you stop No 01/22/24 14:35 breathing during sleep? STOP Results Negative 01/22/24 14:35 QUESTION #5 FULL TEXT : Do you snore loudly (louder than talking or can be heard through closed doors)? 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 Specify any problems Hx of Preganancy in last 3 N/A 01/22/24 14:35 Months Nurse Filling Out Transfusion NBUCHER 01/22/24 14:35 & Questions: Date: 01/22/24 01/22/24 14:35 Time: 14:37 01/22/24 14:35 Patient unable to answer at this time (ie. 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: /Reproductive Hx- carton making machine operator Hx Now No 01/22/24 14:35 Gestational Age (in weeks): EDC: Hx Hx Para Hx Section SAB No 01/24/24 13:21 Active Medications Active Medications: Current Medications Generic Name Dose Route Start Last Admin Trade Name Freq PRN Reason Stop Dose Admin Lactated Ringer's 1,000 mls @ 15 mls/hr 02/04/24 10:45 02/04/24 11:05 IV 15 mls/hr .Q48H MICHELLE Administration PFSH Medical History Wears glasses Diabetes Ambulates with cane High cholesterol Non-smoker Incisional hernia of anterior abdominal wall without obstruction or gangrene Arthritis Heart murmur Home Medications ?Medication ?Instructions ?Recorded ?Last Taken ?Type aspirin 81 mg tablet,delayed 81 mg PO QDAY 05/15/17 05/19/17 History release (Adult Low Dose Aspirin) calcium 600 mg (as 1 cap PO ONCE 05/15/17 05/19/17 History carbonate)-vitamin D3 5 mcg (200 unit) capsule lisinopril 20 2 tab PO DAILY 09/28/23 Unknown History mg-hydrochlorothiazide 12.5 mg tablet metformin 500 mg tablet 500 mg PO BID #60 tabs 09/28/23 Unknown Rx amlodipine 5 mg tablet 5 mg PO QHS 01/22/24 Unknown History atorvastatin 10 mg tablet 10 mg PO QHS 01/22/24 Unknown History turmeric 400 mg capsule 400 mg PO DAILY 01/22/24 Unknown History antiarthritic combination no.2 900 1,500 mg PO DAILY 01/24/24 Unknown History mg tablet (glucosamine-chondroitin) cholecalciferol (vitamin D3) 125 125 mcg PO QDAY 01/24/24 Unknown History mcg (5,000 unit) capsule Allergy/AdvReac Type Severity Reaction Status Date / Time hydrocodone (From Vicodin) Allergy Unknown Unknown Verified 02/04/24 11:13 Family History Mother Hypertension Father Diabetes Son Seizures Surgical History History of incisional hernia repair Dislocation, shoulder closed S/P appendectomy S/P cholecystectomy Social History (Updated 01/24/24 @ 13:18 by Yen Cho) number of children: 6 Smoking Status: Never smoker second hand exposure: No alcohol intake: never substance use type: does not use caffeine: No what type of physical activity do you participate in: none frequency: does not exercise seatbelt use: always additional social history: Sanchez Review of Systems (Anesthesia) ROS Narrative System reviewed and no additional complaints, except as documented.
--- NOTE | 2024-02-04 12:45 | EMB_PTH ---
PATIENT: FRANCHESKA CROSS LOC: [facility] [place] U#:[id number] AGE/SX: 68/F ROOM: RE02/04/[address]: Dr. Selina Beal MD : [id number] BED: DIS: 02/04/2024 SPEC #: [id number] RECD: 02/04/24 18:13 STATUS: MARISA HSU #: [id number] NICOLE: 02/04/24 12:[address]: Selina Beal DEPT: SURGICAL PATHOLOGY RECD BY: Mejia Parker ENTERED: 02/05/24 10:06 SP TYPE: ENDOM BX/C OTHR DR: Dr. Janey Camp MD Tissues: Endometrium, NOS Procedures: Surgery Specimen Level IV HEADER OPERATION: Hysteroscopy, D&C PRE-OP DIAGNOSIS: Post menopausal bleeding, endometrial hyperplasia TISSUE SUBMITTED: Endometrial curettings, polyp MICROSCOPIC DIAGNOSIS Endometrial curettings and polyp, dilatation and curettage: Simple cystic endometrial hyperplasia without atypia. A few fragments of myometrium. 02/06/2024 MICROSCOPIC DESCRIPTION Slides are reviewed. GROSS DESCRIPTION Received in fixative is one container labeled with the patient's name and designated Endometrial curettings and polyp. The specimen consists of multiple fragments of esparza soft tissue that in aggregate measure 6.0 x 3.0 x 2.0 cm. The specimen is totally submitted in fourteen cassettes. 02/05/2024 TC:5 CPT:83002
[2024-02-04] MEDS: Lidocaine 1% (20 ml mdv) 20 ML Vial (15:02)
--- NOTE | 2024-02-04 15:12 | PCM.OPRPT ---
Problems Associated Problem List Diagnoses (1) Postmenopausal bleeding: (2) Thickened endometrium: (3) Status post hysteroscopic polypectomy: Report of Operation Date of Procedure: 02/04/24 Pre-Operative Diagnosis: see problem list Post-Operative Diagnosis: same Surgery/Procedure Performed:: D&C hysteroscopy polypectomy using symphion Description of Surgical Findings:: large endometrial polyp Surgeon: Selina Beal nuclear medicine supervisor: None Type of Anesthesia: Local MAC Special Medications: none Specimen's removed: EMC, polyp Drains: none Estimated Blood Loss (mL): 50 Fluids Replaced: crystalloid Description of Procedure: Patient was prepped and draped in a normal sterile fashion under MAC anesthesia. A weighted speculum was placed in the vagina and the anterior lip of the cervix was grasped with a single-tooth tenaculum. A paracervical block was placed with 1% lidocaine. Cervix was progressively dilated to allow passage of a 5 mm hysteroscope. The lining was fully visualized and noted to have large endometrial polyp . Uterine sounded to 10 cm. Using the symphion device, the polyp was progressively removed without complications. Direct visual curettage was performed using the device , and all specimens were sent to pathology. All instruments were removed from the vagina and excellent hemostasis was noted. Patient was awoken and taken to recovery in stable condition. Grafts/Implants Used: none Procedure Start Time: 15:02 Procedure Stop Time: 01:50 Complications none Admit VTE Documentation VTE Present on Admission: No VTE Mechan Device Prophylaxis: SCD's Multi Select Codes Urinary/Genital Urinary/Genital CPT Codes: 23351 Hysteroscopy,EMC, Polypectomy
--- NOTE | 2024-02-04 15:14 | DCINST_ITS ---
Discharge Instructions Diet Discharge Diet: No restrictions Activity Discharge Activity: Return to Normal Activity, May Shower and May Take a Tub Bath (after 1 week) May resume sexual activity in: 1-2 weeks Weight Bearing Status: Weight bearing as tolerated Lifting Restrictions: none Dressing / Incision Call your doctor if you observe: Fever of 101 or Higher, Using more than 1 pad per hour, Shortness of breath and Uncontrolled pain Follow Up Care Please Follow Up With: Selina Beal MD When: Call [phone] to schedule appointment. Test Results: Test results from this visit will be discussed in further detail at your follow- up appointment, if applicable. Discharge Plan Admission Attending Provider: Selina Beal Primary Care Provider: Janey Camp Instructions Print Language: Portuguese Discharge Orders/Prescriptions Prescriptions: No Action aspirin [Adult Low Dose Aspirin] 81 mg tablet,delayed release (DR/EC) 81 mg PO QDAY calcium carbonate-vitamin D3 600 mg calcium- 200 unit capsule 1 cap PO ONCE cholecalciferol (vitamin D3) 125 mcg (5,000 unit) capsule 125 mcg PO QDAY glucosamine-chondroitin 900 mg tablet 1,500 mg PO DAILY amlodipine 5 mg tablet 5 mg PO QHS atorvastatin 10 mg tablet 10 mg PO QHS turmeric 400 mg capsule 400 mg PO DAILY lisinopril-hydrochlorothiazide 20-12.5 mg tablet 2 tab PO DAILY metformin 500 mg tablet 500 mg PO BID Qty: 60 0RF Referrals / Follow Up: Janey Camp MD [Primary Care Provider] - Disposition Disposition (needs filled in before D/C Order can be placed): Home, Self Care
--- NOTE | 2024-02-04 15:32 | PCM.POST.ANE ---
Anesthesia: Postop Eval I Current Vital Signs Temperature: 97.2 F Pulse Rate: 77 Blood Pressure: 119/83 Respiratory Rate: 20 Pulse Ox: 96 Oxygen Delivery Method: Room Air Assessment Airway patent: Yes Spontaneous unlabored respirations: Yes Mental status: Awake nausea: No Vomiting: No Anesthesia Complication: No Fluid Hydration Crystalloid volume administer (ml): 800 Total IV fluid infused: 800 Progress Note Anesthesia document: Postop Eval 1 completed: Yes
[2024-02-04] MEDS: Ibuprofen 600 MG Tablet PO (16:29)
--- NOTE | 2024-02-04 16:49 | POSTOPAN2_ITS ---
Anesthesia Postop Eval I Sum Postop Eval Completion status Anesthesia document: Postop Eval 1 completed: Yes Anesthesia Postop Eval I Summary Anesthesia Postop Eval I Summary: Anesthesia Postop Eval I: Assessment Summary Airway patent Yes 02/04/24 15:34 ABLE BODIED [email or web address] Spontaneous unlabored Yes 02/04/24 15:34 ABLE BODIED TANKERMAN.JDEF respirations Mental status Awake 02/04/24 15:34 ABLE BODIED TANKERMAN.JDEF nausea No 02/04/24 15:34 ABLE BODIED TANKERMAN.JDEF Vomiting No 02/04/24 15:34 ABLE BODIED [email or web address].[email or web address] Anesthesia Postop Eval I: Fluid Summary Crystalloid volume administer 800 02/04/24 15:34 ABLE BODIED TANKERMAN.JDEF (ml) Colloids volume administered ( ml) Blood Product volume administered (ml) Total IV fluid infused 800 02/04/24 15:34 ABLE BODIED [email or web address].[email or web address] Anesthesia Postop Eval I: Summary Notes Anesthesia Complication No 02/04/24 15:34 ABLE BODIED [email or web address].JDEF Anesthesia Complication Comment: Post-operative progress note Anesthesia: Postop Eval II Evaluation Mental status: Awake and Calm Pain Level: 1 nausea: No Vomiting: No Complications Anesthesia Complication: No
--- NOTE | 2024-02-04 16:49 | PCM.POSTANE2 ---
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 Spontaneous unlabored Yes 02/04/24 15:34 CHIMNEY BUILDER HELPER.JDEF respirations Mental status Awake 02/04/24 15:34 CHIMNEY BUILDER HELPER.JDEF nausea No 02/04/24 15:34 CHIMNEY BUILDER HELPER.JDEF Vomiting No 02/04/24 15:34 CHIMNEY BUILDER HELPER.JDEF Anesthesia Postop Eval I: Fluid Summary Crystalloid volume administer 800 02/04/24 15:34 CHIMNEY BUILDER [email or web address].JDEF (ml) Colloids volume administered ( ml) Blood Product volume administered (ml) Total IV fluid infused 800 02/04/24 15:34 CHIMNEY BUILDER HELPER.JDEF Anesthesia Postop Eval I: Summary Notes Anesthesia Complication No 02/04/24 15:34 CHIMNEY BUILDER HELPER.JDEF Anesthesia Complication Comment: Post-operative progress note Anesthesia: Postop Eval II Evaluation Mental status: Awake and Calm Pain Level: 1 nausea: No Vomiting: No Complications Anesthesia Complication: No
== END 2024-02-04 16:53 | disposition home or self-care (01) ==
LOC: SDC 10:30 → AC 10:32
PROVIDERS: Anesthesiology; PCP Family Medicine; Referring Provider Obstetrics & Gynecology; Visit Provider Obstetrics & Gynecology
PROC: 0UB98ZZ Excision of Uterus, Via Natural or Artificial Opening Endoscopic (ICD-10-PCS; CPT 58558; principal; 2024-02-04 12:30)
DX: N85.01 Benign endometrial hyperplasia (principal); E11.9 Type 2 diabetes mellitus without complications; N95.0 Postmenopausal bleeding; E78.00 Pure hypercholesterolemia, unspecified; M19.90 Unspecified osteoarthritis, unspecified site; Z79.84 Long term (current) use of oral hypoglycemic drugs; Z79.82 Long term (current) use of aspirin; Z79.899 Other long term (current) drug therapy
CPT/HCPCS: 58558; 36415; 80053; 80061; 83036; 84132; 84450; 84460; 86850; 86900; 86901; 88305; 93005; J7120

== ENCOUNTER → 2024-03-13 | Outpatient (CLI) | payer MEDICARE, OTHER, SELFPAY ==
[2024-03-13 12:41] LABS: Absolute Lymphocyte Count 3.61 X10^3/uL (0.83-4.51); Absolute Neutrophil Count 5.5 X10^3/uL (2.0-7.7); Basophil# 0.07 X10^3/uL; Basophil% 0.7 % (0-1); Eosinophil# 0.21 X10^3/uL; Eosinophils% 2.1 % (0-5); Hematocrit 39.7 % (37-47); Hemoglobin 13.1 g/dL (12.0-15.0); Lymphocyte # 3.61 X10^3/ul (0.83-4.51); Lymphocyte % 36.4 % (19-41); Mean Corpuscular Hgb 29.3 pg (27.0-32.0); Mean Corpuscular Volume 88.8 fL (81-99); Mean Platelet Vol. 9.7 fl (6.2-12.0); Monocyte# 0.54 X10^3/uL; Monocyte% 5.4 % (0-10); NRBC Flagged by Analyzer 0 % (0-5); Neutrophil # 5.46 X10^3/uL (2.7-7.7); Platelet Count 374 K/mm3 (150-450); RBC Distribution Width CV 13.5 % (11.6-14.6); RBC Distribution Width SD 43.8 fl (35.1-43.9); Red Blood Count 4.47 M/mm3 (4.2-5.4); White Blood Count 9.9 K/mm3 (4.4-11.0)
[2024-03-13 13:15] LABS: ALB/GLOB Ratio 1.1 RATIO (0.9-2.4); AST(SGOT) 9 U/L (15-37); Alanine Aminotransfer ALT/SGPT 15 U/L (13-56); Albumin, Serum 3.6 g/dL (3.2-5.0); Alkaline Phosphatase 44 U/L (45-117); Anion Gap 5 (5-15); BUN 21 mg/dL (7-18); BUN/Creat Ratio 21.4 RATIO (10-20); Calcium,Total 9.1 mg/dL (8.5-10.1); Chloride 108 mmol/L (98-107); Cholesterol 145 mg/dL (200); Creatinine, Serum 0.98 mg/dL (0.55-1.02); EST Glomerular Filtration Rate 60 mL/min (>60); Est Glom Filt Rate - Afr Amer 72 mL/min (>60); Globulin 3.3 g/dL (2.2-4.2); Glucose 103 mg/dL (74-106); High Density Lipoprotein 31 mg/dL; Potassium 3.7 mmol/L (3.5-5.1); Protein, Total 6.9 g/dL (6.4-8.2); Sodium Level 141 mmol/L (136-145); Triglycerides 113 mg/dL; Very Low Density Lipoprotein 23 mg/dL (5-40)
[2024-03-13 13:33] LABS: Hemoglobin A1c 6.9 % (3.8-5.6)
[2024-03-13 15:42] LABS: Protein, Urine (Random) 6.2 mg/dL (<11.9); Protein:Creat Ratio 67 mg/g CRE (0-200)
== END | disposition home or self-care (01) ==
PROVIDERS: PCP Family Medicine; Referring Provider Family Medicine; Visit Provider Family Medicine
DX: Z01.818 Encounter for other preprocedural examination (principal); E11.69 Type 2 diabetes mellitus with other specified complication; E11.59 Type 2 diabetes mellitus with other circulatory complications
CPT/HCPCS: 36415; 80053; 80061; 82570; 83036; 84156; 84443; 85025

== ENCOUNTER → 2024-03-31 | Outpatient (CLI) | payer MEDICARE, OTHER, SELFPAY ==
--- NOTE | 2024-03-31 08:30 | CT_ITS ---
EXAM: CT RIGHT LOWER EXTREMITY WITHOUT INTRAVENOUS CONTRAST CLINICAL INDICATION: RT KNEE OA TECHNIQUE: Helically acquired images were obtained of the right lower extremity without intravenous contrast. 2-D reformats were performed by the technologist. CTDIvol = ( 18.76 ) mGy, DLP = ( 1374.55 ) mGycm This CT exam was performed using one or more of the following dose reduction techniques: automated exposure control, adjustment of the mA and/or kV according to patient size, and/or use of iterative reconstruction technique. COMPARISON: July 22, 2023. FINDINGS: Severe degenerative changes at the knee, worse at the medial femorotibial compartment. Up to moderate polyarticular degenerative changes involving the ankle and foot. Mild to moderate right hip osteoarthrosis. Fibroid uterus incidentally noted. Distal colonic diverticulosis without acute diverticulitis. No soft tissue masses. CT/Extremity Lower without Contra IMPRESSION: Preoperative planning study showing severe tricompartmental osteoarthritis of the knee. Electronically Signed: Gordon Nicole MD at 19:01 EST ,
== END | disposition home or self-care (01) ==
LOC: CT 08:21
PROVIDERS: PCP Family Medicine; Referring Provider Orthopaedic Surgery; Visit Provider Orthopaedic Surgery
DX: M17.11 Unilateral primary osteoarthritis, right knee (principal)
CPT/HCPCS: 73700

== ENCOUNTER → 2024-04-21 | Outpatient (CLI) | payer MEDICARE, OTHER, SELFPAY ==
[2024-04-21 10:22] LABS: Absolute Lymphocyte Count 3.68 X10^3/uL (0.83-4.51); Absolute Neutrophil Count 6.3 X10^3/uL (2.0-7.7); Basophil# 0.06 X10^3/uL; Basophil% 0.5 % (0-1); Eosinophil# 0.31 X10^3/uL; Eosinophils% 2.8 % (0-5); Hematocrit 39.8 % (37-47); Hemoglobin 12.7 g/dL (12.0-15.0); Lymphocyte # 3.68 X10^3/ul (0.83-4.51); Lymphocyte % 33.2 % (19-41); Mean Corp Hgb Conc 31.9 g/dL (32-36); Mean Corpuscular Hgb 28.6 pg (27.0-32.0); Mean Corpuscular Volume 89.6 fL (81-99); Mean Platelet Vol. 9.6 fl (6.2-12.0); Monocyte# 0.74 X10^3/uL; Monocyte% 6.7 % (0-10); NRBC Flagged by Analyzer 0 % (0-5); Neutrophil # 6.26 X10^3/uL (2.7-7.7); Neutrophil % 56.4 % (47-70); Platelet Count 324 K/mm3 (150-450); RBC Distribution Width SD 45.7 fl (35.1-43.9); Red Blood Count 4.44 M/mm3 (4.2-5.4); White Blood Count 11.1 K/mm3 (4.4-11.0)
--- NOTE | 2024-04-21 10:30 | RAD_ITS ---
STUDY: X-RAY CHEST REASON FOR EXAM: Female, 68 years old. PREOP TECHNIQUE: PA and lateral views of the chest. COMPARISON: 09/28/2023 FINDINGS: The lungs are clear and expanded. There is no demonstrated pleural abnormality. Normal size heart. Normal mediastinum and rosalina. Normal visualized pulmonary arteries. Normal visualized aortic arch and descending thoracic aorta. Normal visualized thoracic spine. Normal visualized ribs, clavicles, and shoulders. There is no demonstrated abnormality of the visualized soft tissue structures of the upper abdomen. RAD/Chest PA and Lateral IMPRESSION: Normal x-ray examination of the chest. Electronically Signed: Joshua Warren MD at 11:56 EST ,
[2024-04-21 10:54] LABS: Albumin, Serum 3.4 g/dL (3.2-5.0); Anion Gap 5 (5-15); BUN 23 mg/dL (7-18); BUN/Creat Ratio 20.4 RATIO (10-20); Calcium,Total 9.2 mg/dL (8.5-10.1); Chloride 110 mmol/L (98-107); Creatinine, Serum 1.13 mg/dL (0.55-1.02); EST Glomerular Filtration Rate 51 mL/min (>60); Est Glom Filt Rate - Afr Amer 61 mL/min (>60); Glucose 103 mg/dL (74-106); Potassium 3.5 mmol/L (3.5-5.1); Sodium Level 142 mmol/L (136-145)
[2024-04-21 11:08] LABS: Hemoglobin A1c 6.9 % (3.8-5.6)
== END | disposition home or self-care (01) ==
PROVIDERS: PCP Family Medicine; Referring Provider Orthopaedic Surgery; Visit Provider Orthopaedic Surgery
DX: Z01.811 Encounter for preprocedural respiratory examination (principal); E11.9 Type 2 diabetes mellitus without complications; Z01.818 Encounter for other preprocedural examination; M17.11 Unilateral primary osteoarthritis, right knee
CPT/HCPCS: 36415; 71046; 80048; 82040; 83036; 85025

== ENCOUNTER → 2024-05-12 | Outpatient (CLI) | payer MEDICARE, OTHER, SELFPAY ==
--- NOTE | 2024-05-12 09:52 | EKG12_ITS ---
Test Reason : PRE OP Blood Pressure : */* mmHG Vent. Rate : 85 BPM Atrial Rate : 85 BPM P-R Int : 158 ms QRS Dur : 88 ms QT Int : 378 ms P-R-T Axes : 52 33 86 degrees QTcB Int : 449 ms Normal sinus rhythm with sinus arrhythmia Nonspecific ST and T wave abnormality Abnormal ECG Confirmed by Marcelo Vizcaino ([id number]), script editor HANNA GARZA ([id number]) on 05/12/2024 1:19:27 PM Referred By: Emerson Miranda Confirmed By: Marcelo Vizcaino
== END | disposition home or self-care (01) ==
PROVIDERS: PCP Family Medicine; Referring Provider Orthopaedic Surgery; Visit Provider Orthopaedic Surgery
DX: Z01.810 Encounter for preprocedural cardiovascular examination (principal)
CPT/HCPCS: 93005

== ENCOUNTER → 2024-05-18 | Outpatient (CLI) | payer MEDICARE, OTHER, SELFPAY ==
--- NOTE | 2024-05-18 | KNEE_PTH ---
PATIENT: FRANCHESKA CROSS LOC: [facility] U#:[id number] AGE/SX: 68/F ROOM: RE05/18/[address]: Dr. Emerson Miranda MD : 1955 BED: DIS: 05/18/2024 SPEC #: [id number] RECD: 05/18/24 15:11 STATUS: MARISA REGeeta #: [id number] NICOLE: 05/18/24 00:[address]: Emerson Miranda DEPT: SURGICAL PATHOLOGY RECD BY: Justice Álvarez ENTERED: 05/19/24 07:54 SP TYPE: TOTAL KNEE OTHR DR: Dr. Janey Camp MD Tissues: Knee, NOS Procedures: Decalcification bone/plaque Surgery Specimen Level IV HEADER OPERATION: Right total knee arthroplasty PRE-OP DIAGNOSIS: Primary osteoarthritis right knee TISSUE SUBMITTED: Right knee bone MICROSCOPIC DIAGNOSIS Bone and soft tissue, right knee, total knee replacement/resection: Pieces of bone with degenerative osteoarthritic changes. Fragments of dense fibroconnective tissue and synovial tissue. SJ: 05/22/2024 MICROSCOPIC DESCRIPTION Slides are reviewed. GROSS DESCRIPTION Received is one container designated bone and soft tissue right knee. The specimen consists of multiple fragments of esparza-yellow bone measuring in aggregate 13.0 x 11.0 x 3.5 cm. Also in the specimen container are multiple fragments of yellow-white soft tissue measuring in aggregate 6.0 x 5.0 x 1.5 cm. A number of bony fragments contain articular surfaces consistent with tibial plateau and femoral condyle and displaying prominent osteophyte formation, eburnation and bone erosion. Pacu Rn sections are submitted in two cassettes as follows: 1 - soft tissue, 2 - bone after decalcification. / SJ.mr 05/19/2024 TC:5 [facility]: [id number], [id number]
== END | disposition home or self-care (01) ==
LOC: LABSPEC 15:30
PROVIDERS: PCP Family Medicine; Referring Provider Orthopaedic Surgery; Visit Provider Orthopaedic Surgery
DX: M17.11 Unilateral primary osteoarthritis, right knee (principal)
CPT/HCPCS: 88305; 88311

== ENCOUNTER → 2024-07-22 | Outpatient (CLI) | payer MEDICARE, OTHER, SELFPAY ==
--- NOTE | 2024-07-22 10:54 | EMB_PTH ---
PATIENT: FRANCHESKA CROSS LOC: [facility] U#:[id number] AGE/SX: 68/F ROOM: RE07/22/[address]: Dr. Selina Beal MD : 1955 BED: DIS: 07/22/2024 SPEC #: [id number] RECD: 07/22/24 13:16 STATUS: MARISA REGeeta #: [id number] NICOLE: 07/22/24 10:[address]: Selina Bael DEPT: SURGICAL PATHOLOGY RECD BY: Jaime Neil ENTERED: 07/22/24 13:16 SP TYPE: ENDOM BX/C CHILANGO DR: Dr. Janey Camp MD Tissues: A - Endometrium, NOS Procedures: Surgery Specimen Level IV HEADER OPERATION: Endometrial biopsy PRE-OP DIAGNOSIS: Simple hyperplasia without atypia TISSUE SUBMITTED: A- Endometrial tissue MICROSCOPIC DIAGNOSIS A. Endometrium, biopsy: * Inactive endometrium with progestin effect. MICROSCOPIC DESCRIPTION Slides are reviewed. GROSS DESCRIPTION A. Received in fixative is one container labeled with the patient's name and designated Endometrial tissue. The specimen consists of multiple fragments of brown tissue that measure 2.5 x 2 x 0.2 cm in aggregate. The specimen is totally submitted in one cassette. 07/22/2024 CPT:24319
[2024-07-24 19:07] LABS: HPV APTIMA, High Risk Negative (Negative)
== END | disposition home or self-care (01) ==
LOC: LABSPEC 11:59
PROVIDERS: PCP Family Medicine; Referring Provider Obstetrics & Gynecology; Visit Provider Obstetrics & Gynecology
DX: N85.01 Benign endometrial hyperplasia (principal); Z12.4 Encounter for screening for malignant neoplasm of cervix
CPT/HCPCS: 87624; 88175; 88305; G0145

== ENCOUNTER → 2024-07-27 | Outpatient (CLI) | payer MEDICARE, OTHER, SELFPAY ==
--- NOTE | 2024-07-27 12:50 | US_ITS ---
EXAM: US Pelvis Transvaginal CLINICAL INDICATION: AUB, POST D C TECHNIQUE: Real-time transvaginal pelvic ultrasound with image documentation. Transvaginal imaging was used for better evaluation of the endometrium and adnexa. COMPARISON: No relevant prior studies available. FINDINGS: UTERUS/CERVIX: Cervical fibroid measuring 4.6 x 4.0 x 3.8 cm. Normal endometrial stripe thickness. The uterus measures 7.7 x 5.3 x 3.7 cm. RIGHT OVARY: Right ovary not visualized. LEFT OVARY: Left ovary not visualized. FREE FLUID: No fluid. BLADDER: Empty bladder which cannot be evaluated with this probe. US/Transvaginal Non- IMPRESSION: Fibroid as above. Reading Location: [facility]
== END | disposition home or self-care (01) ==
LOC: US 12:49
PROVIDERS: PCP Family Medicine; Referring Provider Obstetrics & Gynecology; Visit Provider Obstetrics & Gynecology
DX: N93.9 Abnormal uterine and vaginal bleeding, unspecified (principal); Z98.890 Other specified postprocedural states
CPT/HCPCS: 76830

== ENCOUNTER → 2024-08-05 | Outpatient (CLI) | payer MEDICARE, OTHER, SELFPAY ==
[2024-08-05 11:20] LABS: Absolute Neutrophil Count 5.9 X10^3/uL (2.0-7.7); Basophil# 0.06 X10^3/uL; Basophil% 0.6 % (0-1); Eosinophil# 0.24 X10^3/uL; Eosinophils% 2.5 % (0-5); Hematocrit 37.3 % (37-47); Lymphocyte % 31.8 % (19-41); Mean Corp Hgb Conc 32.2 g/dL (32-36); Mean Corpuscular Hgb 29.2 pg (27.0-32.0); Mean Corpuscular Volume 90.8 fL (81-99); Monocyte% 4.1 % (0-10); NRBC Flagged by Analyzer 0 % (0-5); Neutrophil # 5.91 X10^3/uL (2.7-7.7); Neutrophil % 60.7 % (47-70); Platelet Count 328 K/mm3 (150-450); RBC Distribution Width CV 14.5 % (11.6-14.6); RBC Distribution Width SD 47.6 fl (35.1-43.9); Red Blood Count 4.11 M/mm3 (4.2-5.4); White Blood Count 9.7 K/mm3 (4.4-11.0)
== END | disposition home or self-care (01) ==
PROVIDERS: PCP Family Medicine; Referring Provider Obstetrics & Gynecology; Visit Provider Obstetrics & Gynecology
DX: N92.1 Excessive and frequent menstruation with irregular cycle (principal)
CPT/HCPCS: 36415; 85025

== ENCOUNTER → 2024-09-23 | Outpatient (CLI) | payer MEDICARE, OTHER, SELFPAY ==
--- NOTE | 2024-09-23 07:53 | MRI_ITS ---
PROCEDURE: PELVIS W/WO CONTRAST, 09/23/2024 REASON FOR EXAM: PLACEMENT OF CERVICAL FIBROID PREOP TECHNIQUE: Multisequence multiplanar MR of the pelvis was performed with and without IV contrast. IV contrast: 18 mL Clariscan COMPARISON: 07/27/2024 FINDINGS: Variable overall mild motion limitation. Some sequences are mild/moderately motion degraded. Note diffusion and coronal small [id number] T2 sequences were not performed. Visualized bowel: Diverticulosis. Lymph nodes: Unremarkable. Vasculature: Unremarkable. Peritoneum: Unremarkable. Bladder: Underdistended and suboptimally evaluated, grossly unremarkable. Reproductive Organs: Along the LEFT lateral aspect of the lower uterine segment and cranial to mid cervix, there is a T2 dark and enhancing presumed fibroid which measures 5.0 x 3.8 x 4.3 cm. This is subserosal/broadly pedunculated, however also with intramural components, with slight distortion of the endometrial and endocervical canals which are deviated slightly to the RIGHT. Few additional tiny presumed fibroids also present, largest intramural with submucosal components measuring 1.8 cm along the RIGHT fundus posteriorly. Endometrial thickness is 5 mm, borderline in the setting of abnormal postmenopausal bleeding, but potentially slightly thickened by the presence of T1 bright presumed blood products. Ovaries probably largely excluded from the field of view of axial sequences, not well seen and not well evaluated. Body Wall: Minimally imaged, not well evaluated.. Bones: Unremarkable. MRI/Pelvis W/WO Contrast IMPRESSION: 1. Exam performed for preprocedural planning. Presumed uterine fibroids as abo ve, largest 5.0 cm along the LEFT lateral aspect of the lower uterine segment and cranial to mid cervix is broadly pedunculated/ subserosal however also with intramural components. 2. Endometrial thickness is borderline for a postmenopausal female in the setti ng of abnormal bleeding, and therefore endometrial neoplasia cannot be entirely excluded although this potentially slightly increa sed by the presence of endometrial blood products. Recommend clinical follow-up. 3. Additional description as above. Reading Location: [id number]
== END | disposition home or self-care (01) ==
LOC: OPMRI 07:52
PROVIDERS: PCP Family Medicine; Referring Provider Obstetrics & Gynecology; Visit Provider Obstetrics & Gynecology
DX: N95.0 Postmenopausal bleeding (principal); D25.9 Leiomyoma of uterus, unspecified
CPT/HCPCS: 72197; A9575

== ENCOUNTER 2024-09-29 08:10 | Day surgery (SDC) | payer MEDICARE, OTHER, SELFPAY ==
--- NOTE | 2024-09-23 10:43 | EKG12_ITS ---
Test Reason : PREOP Blood Pressure : */* mmHG Vent. Rate : 74 BPM Atrial Rate : 74 BPM P-R Int : 170 ms QRS Dur : 86 ms QT Int : 404 ms P-R-T Axes : 48 0 65 degrees QTcB Int : 448 ms Normal sinus rhythm Minimal voltage criteria for LVH, may be normal variant Nonspecific ST abnormality Abnormal ECG Confirmed by CHRISTIAN GARCIA, ANDRE ([id number]), avid editor HANNA GARZA ([id number]) on 09/23/2024 1:01:18 PM Referred By: Allyson Hercules Confirmed By: ANDRE GONZALES MD
[2024-09-23 12:22] LABS: Absolute Lymphocyte Count 3.69 X10^3/uL (0.83-4.51); Absolute Neutrophil Count 5.9 X10^3/uL (2.0-7.7); Basophil# 0.06 X10^3/uL; Basophil% 0.6 % (0-1); Eosinophil# 0.33 X10^3/uL; Eosinophils% 3.1 % (0-5); Lymphocyte # 3.69 X10^3/ul (0.83-4.51); Lymphocyte % 34.6 % (19-41); Mean Corp Hgb Conc 32.5 g/dL (32-36); Mean Corpuscular Hgb 29.7 pg (27.0-32.0); Mean Corpuscular Volume 91.3 fL (81-99); Monocyte# 0.64 X10^3/uL; NRBC Flagged by Analyzer 0 % (0-5); Neutrophil # 5.92 X10^3/uL (2.7-7.7); Neutrophil % 55.3 % (47-70); Platelet Count 333 K/mm3 (150-450); RBC Distribution Width CV 14.2 % (11.6-14.6); RBC Distribution Width SD 47.6 fl (35.1-43.9); Red Blood Count 4.38 M/mm3 (4.2-5.4); White Blood Count 10.7 K/mm3 (4.4-11.0)
--- NOTE | 2024-09-23 13:09 | PAT.ANESEVAL ---
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 When Was Last Pacemaker Check QUESTION #4 FULL TEXT: You/Your Family Experience fever (hyperthermia) with Anesthesia Last Oral Intake Last Oral intake: Last Oral Intake NPO since Meds taken in AM with sips of water? Meds patient instructed to take am of surgery PONV PONV - licensed mortgage loan officer: PONV - licensed mortgage loan officer Female Yes 09/15/24 14:08 HX of Motion Sickness No 09/15/24 14:08 HX of N/V After Surgery Yes 09/15/24 14:08 Non-Smoker Yes 09/15/24 14:08 Duration of Surgery greater Yes 09/15/24 14:08 than 60 minutes Number of Risk Factors 4 09/15/24 14:08 PONV Score Severe Risk 09/15/24 14:08 Height & Weight Height & Weight: Anesthesia: Height & Weight Height 5 ft 6 in 08/14/24 13:54 Respiratory Assessment Respiratory Assessment - licensed mortgage loan officer: Respiratory Tract Infection Hx - licensed mortgage loan officer Hx Respiratory Tract Infection No 09/15/24 14:08 STOP Sleep Apnea STOP Sleep Apnea - licensed mortgage loan officer: STOP Sleep Apnea - licensed mortgage loan officer Hx Hypertension Yes 09/15/24 14:08 Hx Sleep Apnea No 09/15/24 14:08 CPAP BIPAP Do you snore loudly (louder No 09/15/24 14:08 than talking or can be heard Do you often feel tired/ No 09/15/24 14:08 fatigued/ sleepy during daytime? Has anyone observed you stop No 09/15/24 14:08 breathing during sleep? STOP Results Negative 09/15/24 14:08 QUESTION #5 FULL TEXT : Do you snore loudly (louder than talking or can be heard through closed doors)? 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 Specify any problems Hx of Preganancy in last 3 No 09/15/24 14:08 Months Nurse Filling Out Transfusion EHWHATELY 09/15/24 14:08 & Questions: Date: 09/15/24 09/15/24 14:08 Time: 14:14 09/15/24 14:08 Patient unable to answer at this time (ie. confused, unrespo /Reproduction History /Reproductive History - licensed mortgage loan officer: /Reproductive Hx- licensed mortgage loan officer Hx Now No 09/15/24 14:08 Gestational Age (in weeks): EDC: Hx Hx Para Hx Section SAB No 09/15/24 14:08 [facility] Medical History Wears glasses Diabetes Ambulates with cane High cholesterol Non-smoker Incisional hernia of anterior abdominal wall without obstruction or gangrene Arthritis Heart murmur Home Medications ?Medication ?Instructions ?Recorded ?Last Taken ?Type aspirin 81 mg tablet,delayed 81 mg PO QDAY 05/15/17 05/19/17 History release (Adult Low Dose Aspirin) calcium 600 mg (as 1 cap PO DAILY 05/15/17 05/19/17 History carbonate)-vitamin D3 5 mcg (200 unit) capsule lisinopril 20 2 tab PO DAILY 09/28/23 Unknown History mg-hydrochlorothiazide 12.5 mg tablet amlodipine 5 mg tablet 5 mg PO QHS 01/22/24 Unknown History atorvastatin 10 mg tablet 10 mg PO QHS 01/22/24 Unknown History turmeric 400 mg capsule 400 mg PO DAILY 01/22/24 Unknown History antiarthritic combination no.2 900 1,500 mg PO DAILY 01/24/24 Unknown History mg tablet (glucosamine-chondroitin) cholecalciferol (vitamin D3) 125 125 mcg PO QDAY 01/24/24 Unknown History mcg (5,000 unit) capsule megestrol 40 mg tablet 40 mg PO BID #60 tabs 08/04/24 Unknown Rx metformin 500 mg tablet 500 mg PO DAILY 09/15/24 Unknown History Allergy/AdvReac Type Severity Reaction Status Date / Time hydrocodone (From Vicodin) Allergy Unknown Unknown Verified 09/23/24 09:36 Family History Mother Hypertension Father Diabetes Son Seizures Surgical History H/O total knee replacement Status post hysteroscopic polypectomy History of incisional hernia repair Dislocation, shoulder closed S/P appendectomy S/P cholecystectomy Social History number of children: 6 Smoking Status: Never smoker second hand exposure: No alcohol intake: never substance use type: does not use caffeine: No what type of physical activity do you participate in: none frequency: does not exercise seatbelt use: always additional social history: Sanchez Audit: Pertinent Findings Pertinent Findings EKG Perinent findings: 09/23/2024. Normal sinus rhythm [address] abnormality. Recommendation Anesthesia Recommendation Anesthesia recommendation: OPTIMIZED for anesthesia
[2024-09-23 13:11] LABS: Hemoglobin A1c 6.2 % (<=5.6)
[2024-09-23 13:20] LABS: ALB/GLOB Ratio 1.6 RATIO (0.9-2.4); AST(SGOT) 12 U/L (<=31); Alanine Aminotransfer ALT/SGPT 6 U/L (<=34); Albumin, Serum 4.2 g/dL (3.4-4.8); Alkaline Phosphatase 48 U/L (35-104); Anion Gap 12 (5-15); BUN 24 mg/dL (4-19); BUN/Creat Ratio 22.1 RATIO (10-20); Calcium,Total 9.5 mg/dL (7.6-11.0); Carbon Dioxide 22.3 mmol/L (21.0-32.0); Chloride 108 mmol/L (98-108); EST Glomerular Filtration Rate 54 (>60); Globulin 2.6 g/dL (2.2-4.2); Glucose 105 mg/dL (70-99); Magnesium 2.1 mg/dL (1.5-2.2); Potassium 3.9 mmol/L (3.3-5.1); Protein, Total 6.8 g/dL (5.9-8.4); Sodium Level 142 mmol/L (133-145); Total Bilirubin 0.53 mg/dL (0.00-1.30)
[2024-09-29] VITALS (19 sets, daily range): BP systolic 106–137; BP diastolic 63–93; PULSE 69–83; RESP 16–20; TEMP 36.3–36.9; O2SAT 86–99; BMI 32.4
[2024-09-29] MEDS: Magnesium 1 GM over 15 mins IV (09:02)
[2024-09-29] MEDS: Lactated Ringers 1,000 ML 40 ML IV (09:03)
[2024-09-29] MEDS: Scopolamine 1mg/72hr Patch 1 PATCH TD (09:03)
--- NOTE | 2024-09-29 09:15 | PCM.HP.BLA ---
History and Physical Date of Admission: 09/29/24 Intake Vital Signs 08/14/2512:54 09/23/2508:37 09/23/2508:38 Height 5 ft 6 in 5 ft 6 in 5 ft 6 in Weight: 196 lb 198 lb 4 oz BMI 31.6 32.0 BP 116/70 113/75 Intake Visit Reasons: TRH BSO cyst Nail Setter Required: No Is patient in pain?: No Allergies hydrocodone (From Vicodin) Allergy (Unknown, Verified 09/23/24 09:36) Unknown Medications ?Medication ?Instructions ?Recorded ?Confirmed ?Type aspirin 81 mg tablet,delayed 81 mg PO QDAY 05/15/17 09/23/24 History release (Adult Low Dose Aspirin) calcium 600 mg (as 1 cap PO DAILY 05/15/17 09/23/24 History carbonate)-vitamin D3 5 mcg (200 unit) capsule lisinopril 20 2 tab PO DAILY 09/28/23 09/23/24 History mg-hydrochlorothiazide 12.5 mg tablet amlodipine 5 mg tablet 5 mg PO QHS 01/22/24 09/23/24 History atorvastatin 10 mg tablet 10 mg PO QHS 01/22/24 09/23/24 History turmeric 400 mg capsule 400 mg PO DAILY 01/22/24 09/23/24 History antiarthritic combination no.2 900 1,500 mg PO DAILY 01/24/24 09/23/24 History mg tablet (glucosamine-chondroitin) cholecalciferol (vitamin D3) 125 125 mcg PO QDAY 01/24/24 09/23/24 History mcg (5,000 unit) capsule megestrol 40 mg tablet 40 mg PO BID #60 tabs 08/04/24 09/23/24 Rx metformin 500 mg tablet 500 mg PO DAILY 09/15/24 09/23/24 History Is last menstrual period known: No Post menopausal: Yes Patient : No : No [facility] Medical History Wears glasses Diabetes Ambulates with cane High cholesterol Non-smoker Incisional hernia of anterior abdominal wall without obstruction or gangrene Arthritis Heart murmur Surgical History H/O total knee replacement Status post hysteroscopic polypectomy History of incisional hernia repair Dislocation, shoulder closed S/P appendectomy S/P cholecystectomy Family History Mother HypertensionFather DiabetesSon Seizures Social History number of children: 6 Smoking Status: Never smoker second hand exposure: No alcohol intake: never substance use type: does not use caffeine: No what type of physical activity do you participate in: none frequency: does not exercise seatbelt use: always additional social history: Sanchez HPI TRH BSO cyst Details: FRANCHESKA CROSS is a 69 year old who presents for pre-op robotic hyst. She is a (all vaginal deliveries) who has on and off vaginal bleeding ( postmenopausal bleeding). She had a d and c in february that showed hyperplasia, she has been on megace since. she has had an increase in bleeding since the weekend. she has been feeling good no cramping. she has gone through two diapers a day two days over the weekend and now is only spotting. EMB was easily obtained in the office by Dr Beal and was benign. Ultrasound shows a cervical fibroid that is likely degrading. EXAM: US Pelvis Transvaginal CLINICAL INDICATION: AUB, POST D C TECHNIQUE: Real-time transvaginal pelvic ultrasound with image documentation. Transvaginal imaging was used for better evaluation of the endometrium and adnexa. COMPARISON: No relevant prior studies available. FINDINGS: UTERUS/CERVIX: Cervical fibroid measuring 4.6 x 4.0 x 3.8 cm. Normal endometrial stripe thickness. The uterus measures 7.7 x 5.3 x 3.7 cm. RIGHT OVARY: Right ovary not visualized. LEFT OVARY: Left ovary not visualized. FREE FLUID: No fluid. BLADDER: Empty bladder which cannot be evaluated with this probe. US/Transvaginal Non- IMPRESSION: Fibroid as above. History Past Pregnancies Del. Date Name GA/Weeks Outcome Route Bth Weight Infant Gen Labor Lgth Anesthesia Del Locatn Provider FOB Unknown Alex Unknown Kyle Unknown Hever Unknown Huang Unknown Syd Unknown Liliana ROS Const ROS Unobtainable: All systems reviewed & are unremarkable except as noted in H Resp Resp: Reports system reviewed and no additional complaints, except as documented; Denies cough GI GI: Reports as per HPI Psych Psych: Reports system reviewed and no additional complaints, except as documented Exam Const General: cooperative, healthy appearing, comfortable and no acute distress Resp Effort & Inspection: normal respiratory effort Skin General: no rashes or lesions noted Psych Appearance: grossly normal Speech and Movement: speech and movement normal Coding Level of Care Code Off vis,est,level 4 Diagnoses Fibroid of cervix D25.9 Status post hysteroscopic polypectomy Z98.890 Primary hypertension I10 Hypertension type: primary hypertension Postmenopausal bleeding N95.0 Assessment and Plan Assessment and Plan (1) Fibroid of cervix: Status: Acute Comment: on US, ordered MRI. (2) Status post hysteroscopic polypectomy: Status: Acute Comment: simple hyperplasia without atypia (3) HTN (hypertension): Status: Chronic Qualifiers: Hypertension type: primary hypertension Qualified Code(s): I10 - Essential (primary) hypertension (4) Postmenopausal bleeding: Status: Acute Comment: recurrent early heavy bleeding breakthrough on megace simple hyperplasia without atypia. s/p d and c hysteroscopy. plan megace x 6 months then emb. Orders: Orders CBC W/Diff, Automated Today N95.0 - Postmenopausal bleeding Plan After discussing the patient's diagnosis and treatment plan options, patient wishes to proceed with surgical management. I have discussed with the patient the risks, benefits, and alternatives of the procedure which include but are not limited to risks of anesthesia, bleeding, infection, possible damage to bowel, bladder, or surrounding vasculature which could lead to additional surgery to evaluate any complications. Patient agrees to procedure and wishes to proceed. ACOG/uptodate references given for additional information regarding procedure. MRI done today -pending plan is for a total robotic hyst, bso, cysto. She may need to see Dr. Melendez for urinary incontinence after she heals from this surgery.
[2024-09-29] MEDS: Celecoxib 200 MG Capsule 400 MG PO (09:16)
[2024-09-29] MEDS: Phenazopyridine 95 MG Tablet 190 MG PO (09:17)
[2024-09-29] MEDS: Acetaminophen 500 MG Tablet 1000 MG PO ×2 (09:17→16:39)
[2024-09-29] MEDS: Gabapentin 600 MG Tablet PO (09:17)
[2024-09-29 09:24] LABS: Bedside Glucose 86 mg/dL (74-106)
--- NOTE | 2024-09-29 09:25 | PCM.DC ---
Discharge Instructions Diet Discharge Diet: No restrictions DC O2, CPAP, BIPAP needs Home O2 Discharge instructions: No Dressing / Incision Discharge Activity: May Shower May resume sexual activity in: 8 weeks Weight Bearing Status: Full weight bearing Lifting Restrictions: 10 pounds for 2 weeks Dressing / Incision Call your doctor if your incision/area has: Continuous Slow Oozing, Sudden Increased Bleeding, Increased Pain/ Swelling, Increased Redness and Foul Smelling Discharge Call your doctor if you observe: Fever of 101 or Higher, Using more than 1 pad per hour, Shortness of breath, Chest pain and Uncontrolled pain Suture Line Care: Avoid Pulling/Pushing and Avoid Pinching/Bending Remove Dressing in: 1 week (if present) Cleanse incision/area with: Soap & Water and Keep Dressing Clean & Dry Follow Up Care Please Follow Up With: Allyson Hercules DO When: Call to make an appointment with your doctor for a postop visit in 2 and 6 weeks Test Results: Test results from this visit will be discussed in further detail at your follow-up appointment, if applicable. Discharge Plan Admission Primary Reason for Your Visit: hysterectomy Attending Provider: Allyson Hercules Primary Care Provider: Janey Camp Instructions Print Language: Kinyarwanda Discharge Orders/Prescriptions Prescriptions: New docusate sodium [Colace] 100 mg capsule 100 mg PO DAILY Qty: 14 0RF naproxen 500 mg tablet 500 mg PO BID PRN (Reason: pain (scale score 4-6)) Qty: 30 0RF oxycodone-acetaminophen [Percocet] 5-325 mg tablet 1 tab PO Q4H PRN (Reason: pain (scale score 7-10)) 7 Days Qty: 20 0RF Continued aspirin [Adult Low Dose Aspirin] 81 mg tablet,delayed release (DR/EC) 81 mg PO QDAY calcium carbonate-vitamin D3 600 mg calcium- 200 unit capsule 1 cap PO DAILY cholecalciferol (vitamin D3) 125 mcg (5,000 unit) capsule 125 mcg PO QDAY glucosamine-chondroitin 900 mg tablet 1,500 mg PO DAILY amlodipine 5 mg tablet 5 mg PO QHS atorvastatin 10 mg tablet 10 mg PO QHS metformin 500 mg tablet 500 mg PO DAILY lisinopril-hydrochlorothiazide 20-12.5 mg tablet 2 tab PO DAILY Held turmeric 400 mg capsule 400 mg PO DAILY Hold Instructions: Resume on 10/06/24. Discontinued megestrol 40 mg tablet 40 mg PO BID Qty: 60 5RF Other Ambulatory Orders: 12 Lead EKG (Routine) Timeframe: [id number] Location: None Selected Ordered By: Dr. Allyson Hercules Referrals / Follow Up: Janey Camp MD [Primary Care Provider] - Disposition Disposition (needs filled in before D/C Order can be placed): Home, Self Care
--- NOTE | 2024-09-29 09:36 | PCM.PRE.AN2 ---
ASA Classification* ASA Classification ASA Classification: 2 Assessment & Plan Anesthesia* Anesthesia Assessment Anesthesia Assessment: Discussed sedation and/or anesthesia options, risks, benefits, and alternatives with patient/parents/legal guardian/POA. Questions invited. The patient/parents/legal guardian/POA seems to understand and agrees to proceed with anesthesia plan. Reviewed the physical assessment, medical history, allergy history and patient home medications list prior to surgery/procedure/anesthetic and documented any changes. Performed airway and anesthesia risk assessments. Anesthesia Type Anesthesia Type: General History Source History Obtained from:: Patient and Chart Anesthesia Focused Assessment* Temperature: 97.7 F Pulse Rate: 79 Blood Pressure: 129/93 Respiratory Rate: 16 Pulse Ox: 95 Oxygen Delivery Method: Room Air Airway Assessment Mouth opens: >3 cm Mallampati Score: IV Teeth Condition: Missing (Patient has couple missing teeth. Rest are tight.) Neck Range of motion (ROM): Full ROM Focused Labs Anesthesia Preop lab: CBC WBC 10.7 K/mm3 (4.4-11.0) 09/23/24 10:09/23/24 RBC 4.38 M/mm3 (4.2-5.4) 09/23/24 10:23 09/23/24 Hgb 13.0 g/dL (12.0-15.0) 09/23/24 10:23 09/23/24 Hct 40.0 % (37-47) 09/23/24 10:23 09/23/24 Plt Count 333 K/mm3 (150-450) 09/23/24 10:23 09/23/24 CHEMISTRY Potassium 3.9 mmol/L (3.3-5.1) 09/23/24 09:30 09/23/24 Sodium 142 mmol/L (133-145) 09/23/24 09:09/23/24 Magnesium 2.1 mg/dL (1.5-2.2) 09/23/24 09:09/23/24 BUN 24 mg/dL (4-19) H 09/23/24 09:30 09/23/24 Creatinine 1.10 mg/dL (0.70-1.20) 09/23/24 09:30 09/23/24 Glucose 105 mg/dL (70-99) H 09/23/24 09:30 09/23/24 POC Glucose 86 mg/dL (74-106) 09/29/24 08:44 09/29/24 TSH 2.240 uIU/mL (0.358-3.740) 03/13/24 10:33 03/13/24 COAG Pre-Assessment Diagnosis/Proposed Procedure Planned Operative Procedure(s): Lap Total Robotic Hysterectomy BSO, Cystoscopy Anesthesia History 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 When Was Last Pacemaker Check QUESTION #4 FULL TEXT: You/Your Family Experience fever (hyperthermia) with Anesthesia Last Oral Intake Last Oral intake: Last Oral Intake NPO since 22:00 09/29/24 09:11 Meds taken in AM with sips of No 09/29/24 09:11 water? Meds patient instructed to take am of surgery PONV PONV - sales merchandiser: PONV - sales merchandiser Female Yes 09/15/24 14:08 HX of Motion Sickness No 09/15/24 14:08 HX of N/V After Surgery Yes 09/15/24 14:08 Non-Smoker Yes 09/15/24 14:08 Duration of Surgery greater Yes 09/15/24 14:08 than 60 minutes Number of Risk Factors 4 09/15/24 14:08 PONV Score Severe Risk 09/15/24 14:08 Height & Weight Height & Weight: Anesthesia: Height & Weight Height 5 ft 6 in 09/29/24 09:11 Weight: 91.2 kg 09/29/24 09:11 Body Mass Index (BMI) 32.4 09/29/24 09:11 Respiratory Assessment Respiratory Assessment - sales merchandiser: Respiratory Tract Infection Hx - sales merchandiser Hx Respiratory Tract Infection No 09/15/24 14:08 STOP Sleep Apnea STOP Sleep Apnea - sales merchandiser: STOP Sleep Apnea - sales merchandiser Hx Hypertension Yes 09/15/24 14:08 Hx Sleep Apnea No 09/15/24 14:08 CPAP BIPAP Do you snore loudly (louder No 09/15/24 14:08 than talking or can be heard Do you often feel tired/ No 09/15/24 14:08 fatigued/ sleepy during daytime? Has anyone observed you stop No 09/15/24 14:08 breathing during sleep? STOP Results Negative 09/15/24 14:08 QUESTION #5 FULL TEXT : Do you snore loudly (louder than talking or can be heard through closed doors)? 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 Specify any problems Hx of Preganancy in last 3 No 09/15/24 14:08 Months Nurse Filling Out Transfusion [facility] 09/15/24 14:08 & Questions: Date: 09/15/24 09/15/24 14:08 Time: 14:14 09/15/24 14:08 Patient unable to answer at this time (ie. confused, unrespo /Reproduction History /Reproductive History - sales merchandiser: /Reproductive Hx- sales merchandiser Hx Now No 09/15/24 14:08 Gestational Age (in weeks): EDC: Hx Hx Para Hx Section SAB No 09/23/24 09:38 Active Medications Active Medications: Current Medications Generic Name Dose Route Start Last Admin Trade Name Freq PRN Reason Stop Dose Admin Acetaminophen 1,000 mg 09/29/24 10:20 09/29/24 09:17 Acetaminophen 500 Mg Tablet PO 09/29/24 10:21 1,000 mg PREOP ONE Administration Celecoxib 400 mg 09/29/24 10:20 09/29/24 09:16 Celecoxib 200 Mg Capsule PO 09/29/24 10:21 400 mg PREOP ONE Administration Gabapentin 600 mg 09/29/24 10:20 09/29/24 09:17 Gabapentin 600 Mg Tablet PO 09/29/24 10:21 600 mg PREOP ONE Administration Lactated Ringer's 1,000 mls @ 40 mls/hr 09/29/24 10:20 09/29/24 09:03 IV 40 mls/hr .Q25H MICHELLE Administration Cefazolin Sodium 2 gm/ Sodium 110 mls @ 150 mls/hr 09/29/24 10:20 Chloride IV 09/29/24 11:03 INTRAOP ONE Lactated Ringer's 1,000 mls @ 70 mls/hr 09/29/24 10:20 IV .[id number] MICHELLE Magnesium Sulfate 1 gm/ 102 mls @ 408 mls/hr 09/29/24 10:20 09/29/24 09:02 Dextrose IV 09/29/24 10:34 408 mls/hr INTRAOP ONE Administration Insulin Human Lispro 0 unit 09/29/24 10:20 Insulin Lispro 100 Unit/Ml Insuln.Pen SC 09/29/24 18:00 Q4H PRN PRN BG >/= 180, SEE PROTOCOL Protocol Ondansetron HCl 4 mg 09/29/24 10:20 Ondansetron 4 Mg/2 Ml Vial IV 09/29/24 10:21 INTRAOP ONE Phenazopyridine HCl 190 mg 09/29/24 10:20 09/29/24 09:17 Phenazopyridine 95 Mg Tablet PO 09/29/24 10:21 190 mg PREOP ONE Administration Scopolamine HBr 1 patch 09/29/24 10:20 09/29/24 09:03 Scopolamine 1mg/72hr Patch TD 09/29/24 10:21 1 patch PREOP ONE Administration PFSH Medical History Wears glasses Diabetes Ambulates with cane High cholesterol Non-smoker Incisional hernia of anterior abdominal wall without obstruction or gangrene Arthritis Heart murmur Home Medications ?Medication ?Instructions ?Recorded ?Last Taken ?Type aspirin 81 mg tablet,delayed 81 mg PO QDAY 05/15/17 09/28/24 History release (Adult Low Dose Aspirin) calcium 600 mg (as 1 cap PO DAILY 05/15/17 09/28/24 History carbonate)-vitamin D3 5 mcg (200 unit) capsule lisinopril 20 2 tab PO DAILY 09/28/23 09/28/24 History mg-hydrochlorothiazide 12.5 mg tablet amlodipine 5 mg tablet 5 mg PO QHS 01/22/24 09/28/24 History atorvastatin 10 mg tablet 10 mg PO QHS 01/22/24 09/28/24 History turmeric 400 mg capsule 400 mg PO DAILY 01/22/24 09/28/24 History Held on 09/29/24. Instructions: Resume on 10/06/24. antiarthritic combination no.2 900 1,500 mg PO DAILY 01/24/24 09/28/24 History mg tablet (glucosamine-chondroitin) cholecalciferol (vitamin D3) 125 125 mcg PO QDAY 01/24/24 09/28/24 History mcg (5,000 unit) capsule metformin 500 mg tablet 500 mg PO DAILY 09/15/24 09/28/24 History docusate sodium 100 mg capsule 100 mg PO DAILY #14 caps 09/29/24 Unknown Rx (Colace) naproxen 500 mg tablet 500 mg PO BID PRN pain (scale 09/29/24 Unknown Rx score 4-6) #30 tabs oxycodone-acetaminophen 5 mg-325 1 tab PO Q4H PRN pain (scale score 09/29/24 Unknown Rx mg tablet (Percocet) 7-10) 7 days #20 tabs Allergy/AdvReac Type Severity Reaction Status Date / Time hydrocodone (From Vicodin) Allergy Unknown Unknown Verified 09/29/24 09:06 Family History Mother Hypertension Father Diabetes Son Seizures Surgical History H/O total knee replacement Status post hysteroscopic polypectomy History of incisional hernia repair Dislocation, shoulder closed S/P appendectomy S/P cholecystectomy Social History number of children: 6 Smoking Status: Never smoker second hand exposure: No alcohol intake: never substance use type: does not use caffeine: No what type of physical activity do you participate in: none frequency: does not exercise seatbelt use: always additional social history: Sanchez Review of Systems (Anesthesia) ROS Narrative System reviewed and no additional complaints, except as documented.
--- NOTE | 2024-09-29 09:58 | PCM.PRE.AN2 ---
ASA Classification* ASA Classification ASA Classification: 3 Assessment & Plan Anesthesia* Anesthesia Assessment Anesthesia Assessment: Discussed sedation and/or anesthesia options, risks, benefits, and alternatives with patient/parents/legal guardian/POA. Questions invited. The patient/parents/legal guardian/POA seems to understand and agrees to proceed with anesthesia plan. Reviewed the physical assessment, medical history, allergy history and patient home medications list prior to surgery/procedure/anesthetic and documented any changes. Performed airway and anesthesia risk assessments. Anesthesia Type Anesthesia Type: General History Source History Obtained from:: Patient and Chart Anesthesia Focused Assessment* Temperature: 97.7 F Pulse Rate: 79 Blood Pressure: 129/93 Respiratory Rate: 16 Pulse Ox: 95 Oxygen Delivery Method: Room Air Airway Assessment Mouth opens: >3 cm Mallampati Score: II Teeth Condition: Intact Neck Range of motion (ROM): Full ROM Focused Labs Anesthesia Preop lab: CBC WBC 10.7 K/mm3 (4.4-11.0) 09/23/24 10:09/23/24 RBC 4.38 M/mm3 (4.2-5.4) 09/23/24 10:23 09/23/24 Hgb 13.0 g/dL (12.0-15.0) 09/23/24 10:09/23/24 Hct 40.0 % (37-47) 09/23/24 10:23 09/23/24 Plt Count 333 K/mm3 (150-450) 09/23/24 10:23 09/23/24 CHEMISTRY Potassium 3.9 mmol/L (3.3-5.1) 09/23/24 09:30 09/23/24 Sodium 142 mmol/L (133-145) 09/23/24 09:09/23/24 Magnesium 2.1 mg/dL (1.5-2.2) 09/23/24 09:09/23/24 BUN 24 mg/dL (4-19) H 09/23/24 09:09/23/24 Creatinine 1.10 mg/dL (0.70-1.20) 09/23/24 09:30 09/23/24 Glucose 105 mg/dL (70-99) H 09/23/24 09:30 09/23/24 POC Glucose 86 mg/dL (74-106) 09/29/24 08:44 09/29/24 TSH 2.240 uIU/mL (0.358-3.740) 03/13/24 10:33 03/13/24 COAG Pre-Assessment Diagnosis/Proposed Procedure Planned Operative Procedure(s): Lap Total Robotic Hysterectomy BSO, Cystoscopy Anesthesia History Anesthesia History - shallot packer: Anesthesia History - shallot packer Hx Hospitalization No 09/15/24 14:08 Any Problems With Anesthesia No 09/15/24 14:08 Cholinesterase deficiency No 09/15/24 14:08 You/Your Family Experience No 09/15/24 14:08 fever (hyperthermia) with Relationship Recent Exposure to Contagious No 09/29/24 09:11 Disease Does patient have nerve No 09/15/24 14:08 stimulator Patient instructed to have device shut off --Does patient have Pacemaker No 09/29/24 09:11 or ICD? When Was Last Pacemaker Check QUESTION #4 FULL TEXT: You/Your Family Experience fever (hyperthermia) with Anesthesia Last Oral Intake Last Oral intake: Last Oral Intake NPO since 22:00 09/29/24 09:11 Meds taken in AM with sips of No 09/29/24 09:11 water? Meds patient instructed to take am of surgery PONV PONV - shallot packer: PONV - shallot packer Female Yes 09/15/24 14:08 HX of Motion Sickness No 09/15/24 14:08 HX of N/V After Surgery Yes 09/15/24 14:08 Non-Smoker Yes 09/15/24 14:08 Duration of Surgery greater Yes 09/15/24 14:08 than 60 minutes Number of Risk Factors 4 09/15/24 14:08 PONV Score Severe Risk 09/15/24 14:08 Height & Weight Height & Weight: Anesthesia: Height & Weight Height 5 ft 6 in 09/29/24 09:11 Weight: 91.2 kg 09/29/24 09:11 Body Mass Index (BMI) 32.4 09/29/24 09:11 Respiratory Assessment Respiratory Assessment - shallot packer: Respiratory Tract Infection Hx - shallot packer Hx Respiratory Tract Infection No 09/15/24 14:08 STOP Sleep Apnea STOP Sleep Apnea - shallot packer: STOP Sleep Apnea - shallot packer Hx Hypertension Yes 09/15/24 14:08 Hx Sleep Apnea No 09/15/24 14:08 CPAP BIPAP Do you snore loudly (louder No 09/15/24 14:08 than talking or can be heard Do you often feel tired/ No 09/15/24 14:08 fatigued/ sleepy during daytime? Has anyone observed you stop No 09/15/24 14:08 breathing during sleep? STOP Results Negative 09/15/24 14:08 QUESTION #5 FULL TEXT : Do you snore loudly (louder than talking or can be heard through closed doors)? Tobacco Use History Tobacco Use History - shallot packer: Tobacco Use History - shallot packer Tobacco Use Smoking Status Never smoker 09/15/24 14:08 Hx Tobacco Use No 09/15/24 14:08 Years Smoking Packs Smoked per Day Smoking Cessation Date was within the last 15 years Hx Smoking Cessation Date Hx Smoking Cessation Counseling Hematologic Medial History Hematologic Hx - shallot packer: Hematologic Medical Hx - reflexologist Hx of Blood Transfusion No 09/15/24 14:08 Hx of Transfusion in last 3 No 09/15/24 14:08 Months Date of Last Transfusion (if within last 3 months) Ever experience any problems No 09/15/24 14:08 with transfusion(s)? Specify any problems Hx of Preganancy in last 3 No 09/15/24 14:08 Months Nurse Filling Out [facility] 09/15/24 14:08 & Questions: Date: 09/15/24 09/15/24 14:08 Time: 14:14 09/15/24 14:08 Patient unable to answer at this time (ie. confused, unrespo /Reproduction History /Reproductive History - shallot packer: /Reproductive Hx- shallot packer Hx Now No 09/15/24 14:08 Gestational Age (in weeks): EDC: Hx Hx Para Hx Section SAB No 09/23/24 09:38 Active Medications Active Medications: Current Medications Generic Name Dose Route Start Last Admin Trade Name Freq PRN Reason Stop Dose Admin Acetaminophen 1,000 mg 09/29/24 10:20 09/29/24 09:17 Acetaminophen 500 Mg Tablet PO 09/29/24 10:21 1,000 mg PREOP ONE Administration Celecoxib 400 mg 09/29/24 10:20 09/29/24 09:16 Celecoxib 200 Mg Capsule PO 09/29/24 10:21 400 mg PREOP ONE Administration Gabapentin 600 mg 09/29/24 10:20 09/29/24 09:17 Gabapentin 600 Mg Tablet PO 09/29/24 10:21 600 mg PREOP ONE Administration Lactated Ringer's 1,000 mls @ 40 mls/hr 09/29/24 10:20 09/29/24 09:03 IV 40 mls/hr .Q25H MICHELLE Administration Cefazolin Sodium 2 gm/ Sodium 110 mls @ 150 mls/hr 09/29/24 10:20 Chloride IV 09/29/24 11:03 INTRAOP ONE Lactated Ringer's 1,000 mls @ 70 mls/hr 09/29/24 10:20 IV .[id number] MICHELLE Magnesium Sulfate 1 gm/ 102 mls @ 408 mls/hr 09/29/24 10:20 09/29/24 09:02 Dextrose IV 09/29/24 10:34 408 mls/hr INTRAOP ONE Administration Insulin Human Lispro 0 unit 09/29/24 10:20 Insulin Lispro 100 Unit/Ml Insuln.Pen SC 09/29/24 18:00 Q4H PRN PRN BG >/= 180, SEE PROTOCOL Protocol Ondansetron HCl 4 mg 09/29/24 10:20 Ondansetron 4 Mg/2 Ml Vial IV 09/29/24 10:21 INTRAOP ONE Phenazopyridine HCl 190 mg 09/29/24 10:20 09/29/24 09:17 Phenazopyridine 95 Mg Tablet PO 09/29/24 10:21 190 mg PREOP ONE Administration Scopolamine HBr 1 patch 09/29/24 10:20 09/29/24 09:03 Scopolamine 1mg/72hr Patch TD 09/29/24 10:21 1 patch PREOP ONE Administration PFSH Medical History Wears glasses Diabetes Ambulates with cane High cholesterol Non-smoker Incisional hernia of anterior abdominal wall without obstruction or gangrene Arthritis Heart murmur Home Medications ?Medication ?Instructions ?Recorded ?Last Taken ?Type aspirin 81 mg tablet,delayed 81 mg PO QDAY 05/15/17 09/28/24 History release (Adult Low Dose Aspirin) calcium 600 mg (as 1 cap PO DAILY 05/15/17 09/28/24 History carbonate)-vitamin D3 5 mcg (200 unit) capsule lisinopril 20 2 tab PO DAILY 09/28/23 09/28/24 History mg-hydrochlorothiazide 12.5 mg tablet amlodipine 5 mg tablet 5 mg PO QHS 01/22/24 09/28/24 History atorvastatin 10 mg tablet 10 mg PO QHS 01/22/24 09/28/24 History turmeric 400 mg capsule 400 mg PO DAILY 01/22/24 09/28/24 History Held on 09/29/24. Instructions: Resume on 10/06/24. antiarthritic combination no.2 900 1,500 mg PO DAILY 01/24/24 09/28/24 History mg tablet (glucosamine-chondroitin) cholecalciferol (vitamin D3) 125 125 mcg PO QDAY 01/24/24 09/28/24 History mcg (5,000 unit) capsule metformin 500 mg tablet 500 mg PO DAILY 09/15/24 09/28/24 History docusate sodium 100 mg capsule 100 mg PO DAILY #14 caps 09/29/24 Unknown Rx (Colace) naproxen 500 mg tablet 500 mg PO BID PRN pain (scale 09/29/24 Unknown Rx score 4-6) #30 tabs oxycodone-acetaminophen 5 mg-325 1 tab PO Q4H PRN pain (scale score 09/29/24 Unknown Rx mg tablet (Percocet) 7-10) 7 days #20 tabs Allergy/AdvReac Type Severity Reaction Status Date / Time hydrocodone (From Vicodin) Allergy Unknown Unknown Verified 09/29/24 09:06 Family History Mother Hypertension Father Diabetes Son Seizures Surgical History H/O total knee replacement Status post hysteroscopic polypectomy History of incisional hernia repair Dislocation, shoulder closed S/P appendectomy S/P cholecystectomy Social History number of children: 6 Smoking Status: Never smoker second hand exposure: No alcohol intake: never substance use type: does not use caffeine: No what type of physical activity do you participate in: none frequency: does not exercise seatbelt use: always additional social history: Sanchez Review of Systems (Anesthesia) ROS Narrative System reviewed and no additional complaints, except as documented. Physical Exam Const alert and oriented x3 Orientation / Consciousness: awake Nutritional Appearance: obese Neck full ROM Extremity full ROM
[2024-09-29] MEDS: Cefazolin 2 GM in 0.9% Normal Saline (100mL Bag) 100 ML IV (10:16)
--- NOTE | 2024-09-29 10:20 | UT_PTH ---
PATIENT: FRANCHESKA CROSS [place] [facility] [id number] AGE/SX: 69/F ROOM: RE09/29/[address]: Dr. Allyson Hercules DO : 1955 BED: DIS: 09/30/2024 SPEC #: [id number] RECD: 09/29/24 14:53 STATUS: MARISA REGeeta #: [id number] NICOLE: 09/29/24 10:[address]: Allyson Hercules DEPT: SURGICAL PATHOLOGY RECD BY: Jaime Neil ENTERED: 09/29/24 15:27 SP TYPE: UTERUS OTHR DR: Dr. Janey Camp MD Tissues: A - Uterus, NOS Procedures: Surgery Specimen Level V HEADER OPERATION: ERAS, laparoscopic total robotic hysterectomy PRE-OP DIAGNOSIS: Fibroid of cervix, status post hysteroscopic polypectomy, HTN, postmenopausal bleeding TISSUE SUBMITTED: A- Uterus, right fallopian tube, right ovary, fibroid and cervix MICROSCOPIC DIAGNOSIS A. Uterus, right fallopian tube, right ovary, cervix, fibroid of cervix, hysterectomy and right salpingo-oophorectomy: * Cervix: no specific mucosal pathologic change - see note. * Endometrium: benign endometrial polyp arising in a background of cystic atrophy. * Myometrium: leiomyomata (5.3 cm) - see note. * Right ovary: focal fibroma, corpora albicantia. * Right fallopian tube: focal hematosalpinx. * Note: The largest nodule/fibroma has been from the uterus/cervix. The cervix is grossly noted to be disrupted. This feature along with the clinical diagnosis of fibroid of cervix suggests that the largest leiomyoma may have arisen from or near the cervix. There are focal degenerative changes and dystrophic calcification, without evidence of malignancy in these sections. MICROSCOPIC DESCRIPTION Slides are reviewed. GROSS DESCRIPTION A. Received in formalin in a container labeled with the patient's name, date of , and uterus, right fallopian tube, right ovary, fibroid and cervix is a hysterectomy specimen with attached disrupted cervix, attached right adnexa, and 2 detached shaggy possible nodules. The right adnexa are amputated and the uterus with cervix is 90.2 g and 9 cm from fundus to ectocervix, 4.5 cm from cornu to cornu, and 3.5 cm from anterior to posterior. The serosa is esparza-pink, smooth and glistening with a 0.5 x 0.5 cm protruding subserosal nodule at the posterior fundus. The ectocervical face is 2.7 x 2.2 cm, white-pink and smooth. There is a 1.0 cm slit-like os. The paracervical margin is shaggy and disrupted with protruding possible nodules. The specimen is bivalved to reveal a 3.5 cm in length by 0.7 cm in diameter esparza-pink and corrugated endocervix with multiple cystic spaces up to 0.2 cm in greatest dimension. The triangular endometrial cavity is 4.3 cm in length by 3.1 cm in width. There is red-esparza, roughened and focally granular endometrium measuring 0.1 cm in greatest thickness. The posterior left cornu is notable for an ill-defined 1.0 x 1.0 x 0.5 cm gelatinous possible polyp which is confined to the mucosa. The esparza-pink myometrium is up to 1.9 cm in greatest thickness. There are multiple subserosal, intramural and submucosal myometrial nodules ranging from 0.5 x 0.5 x 0.4 cm to 1.5 x 1.2 x 0.9 cm. Each displays whorled and white cut surfaces with no hemorrhage or necrosis. The separate possible nodules are 3.2 x 1.3 x 1.0 cm and 5.3 x 4.1 x 3.2 cm. Sectioning of the smaller fragment reveals esparza-pink and rubbery surfaces. The largest is sectioned to reveal esparza-pink, whorled, and focally hemorrhagic surfaces consistent with fibroma with focal discolored areas. The right fimbriated fallopian tube is 4 cm in length by 0.8 cm in diameter with an unremarkable fimbriated end. Sectioning reveals a pinpoint lumen which focally contains blood. The attached right ovary appears grossly atrophic and is 1.1 g and 1.2 x 1.0 x 0.8 cm. The outer surface is esparza-pink and somewhat nodular. It is sectioned to reveal esparza-pink ovarian parenchyma with a 0.4 x 0.3 x 0.3 cm white-mosqueda cystic possible corpus albicans. No firm or papillary areas are identified. Bone Grinder sections:A1. Anterior cervix with anterior serosal shaveA2. Posterior cervix with posterior serosal shave (including posterior subserosal nodule)A3. Anterior endomyometrium with nodules (superficial x 2)A4. Posterior endomyometrium with nodules (superficial x 2)A5. Possible polyp of posterior endometrium with protruding nodule at paracervical marginA6-7. Separate nodule and soft tissueA8. Right adnexa SMB 09-29-2024 CPT:29848
[2024-09-29] MEDS: Ondansetron 4 MG/2 ML Vial IV ×2 (10:37→16:39)
[2024-09-29] MEDS: Bupivacaine 0.25% 30 ML Vial (11:13)
[2024-09-29 11:33] LABS: Bedside Glucose 107 mg/dL (74-106)
--- NOTE | 2024-09-29 13:19 | PCM.OPRPT ---
Problems Associated Problem List Diagnoses (1) Fibroid of cervix: (2) Postmenopausal bleeding: (3) Incisional hernia of anterior abdominal wall without obstruction or gangrene: Multi Select Codes Urinary/Genital Urinary/Genital CPT Codes: 53639 Cystoscopy, 47497 TLH+BS/O <250gr uterus and Other Procedure See Report (lysis of adhesions ) Operative Report (Standard) Operative Information Date of Procedure: 09/29/24 Pre-Operative Diagnosis: postmenopausal bleeding, cervical fibroid Post-Operative Diagnosis: postmenopausal bleeding, cervical fibroid, pelvic and abdominal adhesions Surgery/Procedure Performed: total robotic hysterectomy, right salpingo-oophorectomy, lysis of adhesions, cystoscopy cnc technician: Yes Aniline Press Worker: Jong Saul Tasks completed by culinary assistant: Closing, Insert Trochanter, Trocar and Retracting Additional office clerk assistant?: No Type of Anesthesia: General RN Documented Start/Stop Times: Operation Date: 09/29/24 10:20 Case Time Into Pre-Op 09/29/24 08:16 Out of Pre-Op 09/29/24 10:11 Anesthesia Start 09/29/24 10:16 Into Room 09/29/24 10:16 Procedure Start 09/29/24 10:42 Procedure End 09/29/24 13:03 Procedure Start Time: 10:42 Procedure Stop Time: 13:03 Select all DRAINS/GRAFTS/IMPLANTS that apply: None Estimated Blood Loss: 100cc Specimen collected: Yes Description of specimen(s) removed: uterus, cervix, right fallopian tube and ovary. Description of surgery: Findings: 12 cm size uterus,cervical fibroid normal appearing right ovary and tube, Marked pelvic and abdominal wall adhesions. On exploration of the abdominal cavity the uterus, adnexa, bowel, and liver were found to be normal. Cystoscopy showed no evidence of leaking at approximately 250 cc of normal saline, positive ureteral orifices and jet flow are seen and no suture material was appreciated in the bladder. Specimens removed: Uterus and cervix, right fallopian tube, right ovary, large cervical fibroid. Reason for surgery: This is a 69-year-old who presented to my office with history of postmenopausal bleeding secondary to large cervical fibroid. the planned procedure is for a robotic hysterectomy the risks benefits and alternatives were discussed with the patient the patient had a clear understanding of the procedure and a consent form was signed. Procedure: The patient was placed in the dorsal low lithotomy position and prepped and draped in the normal sterile fashion both abdominally and in the perineum. Her legs were placed in stirrups a Gerardo catheter was inserted into the urethra without difficulty. A weighted speculum was placed in the vagina and a single-tooth tenaculum was used to grasp the anterior lip of the cervix. An advincula uterine manipulator was inserted through the cervix without complication. It was then tied into place at the 2 and 10:00 locations on the cervix. Gloves were changed and attention was turned towards the abdomen. Approximately 21 cm above the pubic symphysis in the midline, and after Marcaine injection, a 8 mm incision was made. An 8 mm trocar was inserted through the laparoscope, then inserted into the abdomen under direct visualization using the laparoscope. Good abdominal placement was noted between 2 large bands of omental and bowel adhesions to the anterior abdominal wall, and no complications were appreciated. An air seal device was utilized to create pneumoperitoneum. At 12 cm lateral to the midline on the left and right sides 8 mm accessory ports were placed. This was performed only after removing some of the fine adhesions of the omentum with the vessel sealer device through the midline incision and the camera through the right side incision. Next a left upper quadrant 8 mm office clerk assistant port site was placed to be used with the air seal device. The patient was placed in steep Trendelenburg position. The robot was docked. The hysterectomy was initiated first by taking down the round ligament on each side using the vessel sealer device. The peritoneum between the round ligament and the IP ligament was opened using electrocautery and extended the length of the IP ligament. The IP ligament was then taken down using the vessel sealer device on the right side. These areas were freed without complication the broad ligament was then and taken down using the vessel sealer device. Next the bladder flap was taken down without complication. This was done using monopolar cautery to the level of the cervical vaginal junction. After the bladder flap was created, uterine vessels were then isolated and cauterized using the vessel sealer device and EndoShears. The left ovary was noted to be entangled in bowel adhesions. On the left side of the uterus, the ovarian ligament and round ligament only were cauterized and cut. The fallopian tube and ovary were left to avoid bowel complications. At this point the uterine vessels were taken down further starting from the ascending branch, dissecting along the edges of the cervix to the level of the cervical vaginal junction with hemostasis appreciated. A large left sided cervical fibroid was in the way of making a colpotomy and a myomectomy was performed using the bovie and the vessel sealer. The fibroid was set asisee and t The cervical vaginal junction was then using monopolar cautery in a circumferential pattern across the superior aspect of the cervix. The specimen including the fibroid was delivered through the vagina and sent to pathology. The remaining vaginal cuff was then closed using a V lock suture. This was performed in a running technique. Excellent hemostasis was obtained and good closure was noted. Irrigation was then performed. All operative sites were noted to be hemostatic. A cystoscopy was performed with a 70 degree cystoscope through the urethra into the bladder without complication. The bladder was instilled with approximately 250 cc of normal saline. Intraoperative images were made. Ureteral orifices and jets were identified. No suture material was appreciated in the bladder. The bladder was then drained and cystoscope was removed. The abdominal cavity was again examined using the laparoscope after the robot was undocked. All operative sites were noted to be hemostatic. The trochars were removed under direct visualization without complication and pneumoperitoneum was reduced. At this point the skin was then closed using 4-0 Monocryl subcuticular stitch and sealed with surgical glue. The patient tolerated the procedure well sponge lap and needle counts were correct x2 the patient was taken to the recovery room in stable condition. Surgical Findings: moderate to marked adhesions of omentum and bowel to mesh graft on the anerior abdominal wall. Marked adhesions to the left ovary and fallopian tube to the bowel. cervical fibroid. Complications Complications: No Admit VTE Documentation VTE Mechan Device Prophylaxis: [facility] [place]'s VTE Pharm Prophylaxis ordered?: No
--- NOTE | 2024-09-29 13:37 | PCM.POST.ANE ---
Anesthesia: Postop Eval I Current Vital Signs Temperature: 97.3 F Pulse Rate: 69 Blood Pressure: 106/79 Respiratory Rate: 16 Pulse Ox: 92 Oxygen Delivery Method: Nasal Cannula Oxygen Flow Rate (L/min): 2 Assessment Airway patent: Yes Spontaneous unlabored respirations: Yes Mental status: Awake and Calm nausea: No Vomiting: No Anesthesia Complication: No Fluid Hydration Crystalloid volume administer (ml): 1,300 Total IV fluid infused: 1,300 Progress Note Post-operative progress note: patient tolerated well Anesthesia document: Postop Eval 1 completed: Yes
--- NOTE | 2024-09-29 13:39 | POSTOPAN2_ITS ---
Anesthesia Postop Eval I Sum Postop Eval Completion status Anesthesia document: Postop Eval 1 completed: Yes Anesthesia Postop Eval I Summary Anesthesia Postop Eval I Summary: Anesthesia Postop Eval I: Assessment Summary Airway patent Yes 09/29/24 13:38 FRUIT ROOM HAND.MEDM Spontaneous unlabored Yes 09/29/24 13:38 FRUIT ROOM HAND.MEDM respirations Mental status Awake,Calm 09/29/24 13:38 FRUIT ROOM HAND.MEDM nausea No 09/29/24 13:38 FRUIT ROOM HAND.MEDM Vomiting No 09/29/24 13:38 FRUIT ROOM HAND.MEDM Anesthesia Postop Eval I: Fluid Summary Crystalloid volume administer 1,300 09/29/24 13:38 FRUIT ROOM HAND.MEDM (ml) Colloids volume administered ( ml) Blood Product volume administered (ml) Total IV fluid infused 1,300 09/29/24 13:38 FRUIT ROOM HAND.MEDM Anesthesia Postop Eval I: Summary Notes Anesthesia Complication No 09/29/24 13:38 FRUIT ROOM HAND.MEDM Anesthesia Complication Comment: Post-operative progress note patient tolerated 09/29/24 13:38 FRUIT ROOM HAND.MEDM well Anesthesia: Postop Eval II Evaluation Mental status: Awake and Calm Pain Level: 2 nausea: No Vomiting: No Complications Anesthesia Complication: No
--- NOTE | 2024-09-29 13:39 | PCM.POSTANE2 ---
Anesthesia Postop Eval I Sum Postop Eval Completion status Anesthesia document: Postop Eval 1 completed: Yes Anesthesia Postop Eval I Summary Anesthesia Postop Eval I Summary: Anesthesia Postop Eval I: Assessment Summary Airway patent Yes 09/29/24 13:38 TRANSPORT TECHNICIAN.MEDM Spontaneous unlabored Yes 09/29/24 13:38 TRANSPORT TECHNICIAN.MEDM respirations Mental status Awake,Calm 09/29/24 13:38 TRANSPORT TECHNICIAN.MEDM nausea No 09/29/24 13:38 TRANSPORT TECHNICIAN.MEDM Vomiting No 09/29/24 13:38 TRANSPORT TECHNICIAN.MEDM Anesthesia Postop Eval I: Fluid Summary Crystalloid volume administer 1,300 09/29/24 13:38 TRANSPORT TECHNICIAN.MEDM (ml) Colloids volume administered ( ml) Blood Product volume administered (ml) Total IV fluid infused 1,300 09/29/24 13:38 TRANSPORT TECHNICIAN.MEDM Anesthesia Postop Eval I: Summary Notes Anesthesia Complication No 09/29/24 13:38 TRANSPORT TECHNICIAN.MEDM Anesthesia Complication Comment: Post-operative progress note patient tolerated 09/29/24 13:38 TRANSPORT TECHNICIAN.MEDM well Anesthesia: Postop Eval II Evaluation Mental status: Awake and Calm Pain Level: 2 nausea: No Vomiting: No Complications Anesthesia Complication: No
[2024-09-29] MEDS: Insulin Lispro 100 UNIT/ML INSULN.PEN SC (15:07)
[2024-09-29 15:20] LABS: Bedside Glucose 195 mg/dL (74-106)
[2024-09-29] MEDS: 0.9% Saline Lock 10 ML Syringe IV (16:40)
[2024-09-29 17:07] LABS: Bedside Glucose 218 mg/dL (74-106)
[2024-09-29] MEDS: Atorvastatin Calcium 10 MG Tablet PO (22:13)
[2024-09-29] MEDS: amLODIPine 5 MG Tablet PO (22:13)
[2024-09-29] MEDS: Lactated Ringers @ 70 MLS/HR 70 ML IV (22:49)
[2024-09-30 00:40] VITALS: BP 123/76; PULSE 79; RESP 16; TEMP 36.8; O2SAT 95
[2024-09-30] MEDS: Acetaminophen 500 MG Tablet 1000 MG PO ×2 (00:42→05:33)
[2024-09-30 01:09] LABS: Bedside Glucose 184 mg/dL (74-106)
[2024-09-30 05:20] VITALS: BP 117/76; PULSE 72; RESP 16; TEMP 36.9; O2SAT 97
[2024-09-30 05:38] VITALS: O2SAT 94
[2024-09-30 06:42] LABS: Hematocrit 31.9 % (37-47); Hemoglobin 10.5 g/dL (12.0-15.0); Mean Corp Hgb Conc 32.9 g/dL (32-36); Mean Corpuscular Hgb 29.7 pg (27.0-32.0); Mean Corpuscular Volume 90.4 fL (81-99); Mean Platelet Vol. 9.9 fl (6.2-12.0); Platelet Count 271 K/mm3 (150-450); RBC Distribution Width SD 46.2 fl (35.1-43.9); Red Blood Count 3.53 M/mm3 (4.2-5.4); White Blood Count 16.9 K/mm3 (4.4-11.0)
[2024-09-30 07:03] LABS: Bedside Glucose 147 mg/dL (74-106)
[2024-09-30 07:07] LABS: ALB/GLOB Ratio 1.8 RATIO (0.9-2.4); AST(SGOT) 38 U/L (<=31); Alanine Aminotransfer ALT/SGPT 34 U/L (<=34); Albumin, Serum 3.6 g/dL (3.4-4.8); Alkaline Phosphatase 38 U/L (35-104); Anion Gap 11 (5-15); BUN 24 mg/dL (4-19); BUN/Creat Ratio 23.3 RATIO (10-20); Calcium,Total 8.7 mg/dL (7.6-11.0); Carbon Dioxide 21.4 mmol/L (21.0-32.0); Chloride 106 mmol/L (98-108); Creatinine, Serum 1.02 mg/dL (0.70-1.20); EST Glomerular Filtration Rate 59 (>60); Estimated Creatinine Clearance 57.55 ml/min (50-250); Globulin 2.1 g/dL (2.2-4.2); Glucose 149 mg/dL (70-99); Potassium 4.1 mmol/L (3.3-5.1); Protein, Total 5.7 g/dL (5.9-8.4); Sodium Level 138 mmol/L (133-145)
--- NOTE | 2024-09-30 08:15 | PN.OBGYN_ITS ---
Subjective Subjective patient is up to bedside commode and able to ambulate back to her bed. She denies fevers, chills, nausea, vomiting, and states that she is ready to be in her own bed. Vaginal bleeding is scant to none per the nurse that is helping her back into bed. Her adult diaper is dry and clean. Objective Data Objective Data Vital Signs: Vital Signs Temp Pulse Resp BP Pulse Ox O2 Del Method O2 Flow Rate 98.4 F 72 16 117/76 94 Room Air 2 09/30/24 05:20 09/30/24 05:20 09/30/24 05:20 09/30/24 05:20 09/30/24 05:38 09/30/24 05:38 09/30/24 05:20 Oxygen Flow Rate (L/min) 2 Oxygen Delivery Method Room Air Weight: 201 lb 0.985 oz Body Mass Index (BMI) 32.4 Intake & Output: Intake and Output for Last 24 Hours 09/28/24 09/29/24 09/30/24 23:59 23:59 23:59 Intake Total 718 / 718 Output Total 620 / 620 300 / 300 Balance 98 / 98 -300 / -300 Lab / Micro Data 09/30/24 06:00 09/30/24 06:00 Labs: Laboratory Results - last 24 hr 09/29/24 08:44: POC Glucose 86 09/29/24 10:39: POC Glucose 107 H 09/29/24 14:56: POC Glucose 195 H 09/29/24 16:49: POC Glucose 218 H 09/30/24 00:42: POC Glucose 184 H 09/30/24 06:00: WBC 16.9 H, RBC 3.53 L, Hgb 10.5 L, Hct 31.9 L, MCV 90.4, MCH 29.7, MCHC 32.9, RDW Std Deviation 46.2 H, RDW Coeff of Terrell 14.0, Plt Count 271, MPV 9.9, Sodium 138, Potassium 4.1, Chloride 106, Carbon Dioxide 21.4, Anion Gap 11, BUN 24 H, Creatinine 1.02, Estim Creat Clear Calc 57.55, Est GFR (MDRD) Non- Af 59 L, BUN/Creatinine Ratio 23.3 H, Glucose 149 H, Calcium 8.7, Total Bilirubin 0.50, AST 38 H, ALT 34, Alkaline Phosphatase 38, Total Protein 5.7 L, Albumin 3.6, Globulin 2.1 L, Albumin/Globulin Ratio 1.8 09/30/24 06:45: POC Glucose 147 H ROS Constitutional Constitutional: Reports systems reviewed and no addt'l complaints, except as documented Cardiovascular Cardiovascular: Denies chest pain, dizziness, dyspnea or irregular heart rhythm Respiratory/Chest Respiratory/Chest: Denies cough, pain on inspiration or shortness of breath at rest Gastrointestinal Gastrointestinal: Denies abdominal pain, nausea or vomiting Genitourinary Genitourinary: Denies burning urination Musculoskeletal Musculoskeletal: Denies muscle cramps, muscle spasms or muscle weakness Neurologic Neurologic: Denies confusion, dizziness, headache(s) or lack of coordination Psychiatric Psychiatric: Denies anxiety, behavioral changes or depression Physical Exam HEENT normocephalic Resp normal respiratory effort and normal air movement GI soft to palpation, non-tender and non-distended Rectal Exam: other Other Details: Incision is clean, dry, and intact no CVA tenderness Extremity normal to inspection General Extremity: edema bilateral (trace ) Assessment & Plan (1) Status post hysterectomy with oophorectomy: (2) Fibroid of cervix: COMMENT: on US, ordered MRI. PLAN: Plan patient is s/p robotic hyst with RSO, lysis of adhesions, POD 1 1. routine ERAS protocol postop care- increase ambulation, encourage oral intake and oral control of pain. scds for dvt prophylaxis, patient stable for discharge to home.
[2024-09-30 08:18] VITALS: BP 121/82; PULSE 74; RESP 17; TEMP 36.7; O2SAT 95
[2024-09-30] MEDS: Calcium Carb/Vitamin D 1 TABLET Tablet PO (08:35)
[2024-09-30] MEDS: Docusate Sodium 100 MG Capsule PO (08:35)
[2024-09-30] MEDS: Lisinopril 20 MG Tablet PO (08:35)
[2024-09-30] MEDS: Cholecalciferol (Vit D3) 125 MCG CAPSULE (5,000 UNITS) PO (08:35)
[2024-09-30] MEDS: hydroCHLOROthiazide 12.5mg 12.5 MG PO (08:35)
--- NOTE | 2024-09-30 09:38 | CASEMGMT ---
Noted pt has a dc order in. STEPH CM into pt room, pt sitting up in chair dressed for dc. Pt states she lives with her and is typically indep at home. Pt states her will be home to assist her as needed. She has a cane and walker at home but does not typically use. Pt also has a handicap accessible shower. Pt has transportation home and denies any homegoing needs.
--- NOTE | 2024-09-30 10:25 | PHA.DC_ITS ---
Pharmacy [facility] Counseling Pharmacy Service has performed discharge medication reconciliation and counseling for this patient. 1. DOCUSATE 100MG PO DAILY X 14 DAYS 2. NAPROXEN 500MG PO BID PRN PAIN 3. PERCOCET 5/325MG PO Q4H PRN PAIN 4. STOP MEGACE 5. HOLD TURMERIC UNTIL 10/06/24 The patient's discharge medication list was reviewed for discrepancies and dis crepancies were resolved. The patient was counseled on the following discharge medications and changes in medications for homegoing were reviewed. The Reason for Use, instructions for use, and potential side effects were reviewed for all new medications. The patient's questions regarding all of their medications were answered. The patient was able to verbally demonstrate an understanding of their discharge medications. Medications at Discharge Home Medications aspirin 81 mg tablet,delayed release (Adult Low Dose Aspirin) 81 mg PO QDAY 05/15/17 calcium 600 mg (as carbonate)-vitamin D3 5 mcg (200 unit) capsule 1 cap PO DAILY 05/15/17 lisinopril 20 mg-hydrochlorothiazide 12.5 mg tablet 2 tab PO DAILY 09/28/23 amlodipine 5 mg tablet 5 mg PO QHS 01/22/24 atorvastatin 10 mg tablet 10 mg PO QHS 01/22/24 turmeric 400 mg capsule 400 mg PO DAILY 01/22/24 Held on 09/29/24. Instructions: Resume on 10/06/24. antiarthritic combination no.2 900 mg tablet (glucosamine-chondroitin) 1,500 mg PO DAILY 01/24/24 cholecalciferol (vitamin D3) 125 mcg (5,000 unit) capsule 125 mcg PO QDAY 01/24/24 metformin 500 mg tablet 500 mg PO DAILY 09/15/24 docusate sodium 100 mg capsule (Colace) 100 mg PO DAILY #14 caps 09/29/24 naproxen 500 mg tablet 500 mg PO BID PRN pain (scale score 4-6) #30 tabs 09/29/24 oxycodone-acetaminophen 5 mg-325 mg tablet (Percocet) 1 tab PO Q4H PRN pain (scale score 7-10) 7 days #20 tabs 09/29/24
== END 2024-09-30 10:20 | disposition home or self-care (01) ==
LOC: SDC 08:11 → AC 08:11 → SDC 13:55 → MS3 17:48
PROVIDERS: PCP Family Medicine; Referring Provider Obstetrics & Gynecology; Visit Provider Obstetrics & Gynecology
PROC: 0UT94ZZ Resection of Uterus, Percutaneous Endoscopic Approach (ICD-10-PCS; CPT 58571; principal; 2024-09-29 10:00)
DX: D27.0 Benign neoplasm of right ovary (principal); E11.9 Type 2 diabetes mellitus without complications; Z79.4 Long term (current) use of insulin; N95.0 Postmenopausal bleeding; E78.00 Pure hypercholesterolemia, unspecified; Z79.818 Long term (current) use of other agents affecting estrogen receptors and estrogen levels; K43.2 Incisional hernia without obstruction or gangrene; I10 Essential (primary) hypertension; Z79.84 Long term (current) use of oral hypoglycemic drugs; N73.6 Female pelvic peritoneal adhesions (postinfective); Z79.82 Long term (current) use of aspirin; Z79.899 Other long term (current) drug therapy; D25.9 Leiomyoma of uterus, unspecified; K66.0 Peritoneal adhesions (postprocedural) (postinfection); N84.0 Polyp of corpus uteri
CPT/HCPCS: 58571; S2900; 00840; 36415; 80053; 82962; 83036; 83735; 85025; 85027; 86850; 86900; 86901; 88307; 93005; 94668; A4216; J2405; J3475

== ENCOUNTER → 2024-11-27 | Outpatient (CLI) | payer MEDICARE, OTHER, SELFPAY ==
--- NOTE | 2024-11-27 10:30 | BI_ITS ---
EXAM: SCRN MAMM (CAD)W/YOSEPH BILAT DATE: 11/27/2024 CLINICAL HISTORY: F, Age 69 y/o , BREAST CANCER SCREENING TECHNIQUE: SCRN MAMM (CAD)W/YOSEPH BILAT COMPARISON: Prior exam(s) dated 11/16/2010, 10/21/2008. FINDINGS: TISSUE DENSITY: There are scattered areas of fibroglandular density. Bilateral Breast Mammographic Findings: No significant masses, calcifications or other abnormalities are identified. BI/SCRN MAMM (CAD)W/YOSEPH BILAT IMPRESSION: There is no mammographic evidence of malignancy. OVERALL FINAL ASSESSMENT BI-RADS 1: NEGATIVE. RECOMMENDATION: Routine annual follow-up in 1 Year A letter with findings and recommendations will be mailed to the patient. Reading Location: [id number]
--- OUTSIDE RECORDS SUMMARY | 2024-11-27 18:35 | XMS RPT_ITS | CCD ---
Author Organization [facility] [place] Care Team Providers Care Psychiatric Arnp Name Role Phone Conrado GARCIA, Dr. Janey Moeller Primary Care Provider Ruben GARCIA, Dr. Norman Attending Provider [phone] Ruben GARCIA, Dr. Norman Referring Provider [phone] Dr. Marcelo Vizcaino MD Attending Provider Conrado GARCIA, Dr. Janey Moeller Referring Provider [phone] Selina Beal MD Attending Provider Dr. Selina Beal MD Referring Provider Dr. Janey Camp MD Primary Care Provider [phone] Dr. Allyson Hercules DO Attending Provider Dr. Allyson Hercules DO Referring Provider Dr. Allyson Hercules DO Other Provider [phone] Dr. Allyson Hercules DO Admit Provider [phone] Dr. Allyson Hercules DO Admit Provider [phone] Bubba GARCIA, Dr. Richards Attending Provider [phone] Emerita MARIEE-CYen Attending Provider [phone] Emerson Miranda Attending Unavailable Emerson Miranda Referring Unavailable Jolliff, Janey S Primary Care Unavailable Jolliff, Janey S Attending Unavailable Jolliff, Janey S Referring Unavailable Jolliff, Janey S Primary Care Unavailable Jolliff, Janey S Referring Unavailable Jolliff, Janey S Primary Care Unavailable Selina Beal Attending Unavailable Emerson Miranda Referring Unavailable Emerson Miranda Attending Unavailable Jolliff, Janey S Primary Care Unavailable Jolliff, Janey S Primary Care Unavailable Vande Velde, Allyson Attending Unavailabl e Jolliff, Janey S Referring Unavailable Jolliff, Janey S Primary Care Unavailable Vande Velde, Allyson Attending Unavailabl e Jolliff, Janey S Referring Unavailable Chica Marin Attending Unavailable Jolliff, Janey S Primary Care Unavailable Jolliff, Janey S Primary Care Unavailable Vande Velde, Allyson Referring Unavailabl e Vande Velde, Allyson Attending Unavailabl e Emerson Miranda Referring Unavailable Marcelo Vizcaino Attending Unavailable Jolliff, Janey S Primary Care Unavailable MarcanthonySelina Referring Unavailable Jolliff, Janey S Primary Care Unavailable MarcanthonySelina Consulting Unavailable Marcanthony, Selina Attending Unavailable Jolliff, Janey S Primary Care Unavailable Marcanthony, Selina Attending Unavailable Jolliff, Janey S Referring Unavailable Jolliff, Janey S Referring Unavailable Jolliff, Janey S Primary Care Unavailable Duony, Selina Attending Unavailable Marcanthony, Selina Attending Unavailable MarcanthonySelina Referring Unavailable Jolliff, Janey S Primary Care Unavailable Carrillo, Marcelo Attending Unavailable Marcanthony, Selina Referring Unavailable Jolliff, Janey S Primary Care Unavailable Jolliff, Janey S Primary Care Unavailable Vande Velde, Allyson Attending Unavailabl e Jolliff, Janey S Referring Unavailable Jolliff, Janey S Primary Care Unavailable [place] POSTMASTER, Yen Attending Unavailable Jolliff, Janey S Referring Unavailable Marcanthony, Selina Referring Unavailable Jolliff, Janey S Primary Care Unavailable MarcketanonySelina Attending Unavailable Jolliff, Janey S Primary Care Unavailable Jolliff, Janey S Attending Unavailable Jolliff, Janey S Referring Unavailable Emerita POSTMASTER, Yen Attending Unavailable Emerita POSTMASTER, Yen Referring Unavailable Jolliff, Janey S Primary Care Unavailable Jolliff, Janey S Primary Care Unavailable MarcanthonySelina Referring Unavailable MarcanthonySelina Attending Unavailable Jolliff, Janey S Primary Care Unavailable Vande Velde, Allyson Referring Unavailabl e Vande Velde, Allyson Attending Unavailabl e Jolliff, Janey S Primary Care Unavailable Vande Velde, Allyson Referring Unavailabl e Vande Velde, Allyson Admitting Unavailabl e Vande Velde, Allyson Attending Unavailabl e Jolliff, Janey S Primary Care Unavailable Marcanthony, Selina Referring Unavailable Selina Beal Attending Unavailable Yen Felder NP Attending Unavailable Jolliff, Janey S Referring Unavailable Jolliff, Janey S Primary Care Unavailable Jolliff, Janey S Primary Care Unavailable Vande Velde, Allyson Referring UnavailMaurice Fitzpatrick Attending Unavailable Jolliff, Janey S Primary Care Unavailable Vande Adrienne, Allyson Referring Unavailabl e Vande Velde, Allyson Admitting Unavailabl e Vande Velde, Allyson Consulting Unavailabl e Vande Velde, Allyson Attending Unavailabl e Traniff, Janey S Primary Care Unavailable Vande Velruth, Allyson Referring Unavailabl e Vande Velde, Allyson Consulting Unavailabl e Jeane Adrienne, Allyson Attending UnavailEmerson Dawn Referring Unavailable Emerson Miranda Attending Unavailable Violetlliff, Janey S Primary Care Unavailable Emerson Miranda Attending Unavailable Emerson Miranda Referring Unavailable Jolliff, Janey S Primary Care Unavailable Allergies Allergy Classification Reported Allergen(s) Allergy Type Date of Onset Reaction(s) Facility (11 sources) HYDROcodone Drug Allergy 06-07-2017 Unknown [facility] (1 source) HYDROcodone Drug Allergy 11-09-2024 [facility] Repository Medications Current Medications Medication Drug Class(es) Dates Sig (Normalized) Sig (Original) amLODIPine 5 mg oral tablet (9 sources) Dihydropyridine Calcium Channel Chaparrita Start: 01-22-2024 take 1 tablet by mouth at bedtime Amlodipine 5 mg tablet Active 5 mg PO AT BEDTIME January 22, 2024 12:00am Antiarthritic Combination No.2 (Glucosamine-Chondro itin) 900 mg tablet (9 sources) Start: 01-24-2024 take 1 tablet by mouth once daily Antiarthritic Combination No.2 (Glucosamine-Chond roitin) 900 mg tablet Active 1500 mg PO DAILY January 24, 2024 12:00am aspirin 81 mg delayed release oral tablet (11 sources) Platelet Aggregation Inhibitor, Nonsteroidal Anti-inflammatory Drug Start: 05-15-2017 Aspirin (Adult Low Dose Aspirin) 81 mg tablet,delayed release (DR/EC) Active 81 mg PO daily May 15, 2017 1:00am atorvastatin 10 mg oral tablet (9 sources) HMG-CoA Reductase Inhibitor Start: 01-22-2024 take 1 tablet by mouth at bedtime Atorvastatin 10 mg tablet Active 10 mg PO AT BEDTIME January 22, 2024 12:00am calcium carbonate 1500 mg / cholecalciferol 200 unt oral capsule (6 sources) Vitamin D Start: 05-15-2017 Calcium Carbonate-Vitamin D3 600 mg calcium- 200 unit capsule Active 1 NMA PO DAILY May 15, 2017 1:00am Start: 05-15-2017 Calcium Carbon ate-Vitamin D3 600 mg calcium- 200 unit capsule Active 1 NMA PO ONCE May 15, 2017 1:00am Calcium Carbonate-Vitamin D3 600 mg calcium- 200 unit capsule (5 sources) Start: 05-15-2017 Calcium Carbon ate-Vitamin D3 600 mg calcium- 200 unit capsule Active 1 NMA PO DAILY 0 May 15, 2017 1:00am Start: 05-15-2017 Calcium Carbon ate-Vitamin D3 600 mg calcium- 200 unit capsule Active 1 NMA PO DAILY May 15, 2017 1:00am cholecalciferol 0.125 mg oral capsule (9 sources) Vitamin D Start: 01-24-2024 take 1 capsule by mouth once daily Cholecalciferol (Vitamin D3) 125 mcg (5,000 unit) capsule Active 125 ug PO daily January 24, 2024 12:00am docusate sodium 100 mg oral capsule (5 sources) Start: 09-29-2024 take 1 capsule by mouth once daily Docusate Sodium (Colace) 100 mg capsule Active 100 mg PO DAILY 14 September 29, 2024 12:00am hydroCHLOROthiazide 12.5 mg / lisinopril 20 mg oral tablet (9 sources) Thiazide Diuretic, Angiotensin Converting Enzyme Inhibitor Start: 09-28-2023 Lisinopril-Hydrochl orothiazide 20-12.5 mg tablet Active 2 {tbl} PO DAILY September 28, 2023 12:00am metFORMIN hydrochloride 500 mg oral tablet (15 sources) Biguanide Start: 09-15-2024 take 1 tablet by mouth once daily Metformin 500 mg tablet Active 500 mg PO DAILY September 15, 2024 12:00am Start: 09-28-2023 End: 09-15-2024 take 1 tablet by mouth twice daily Metformin 500 mg tablet Discontinued 500 mg PO TWICE A DAY 60 0 September 28, 2023 12:00am September 15, 2024 2:08pm Turmeric extract (9 sources) Start: 01-22-2024 take 1 capsule by [facility] once daily Turmeric 400 mg capsule Active 400 mg PO DAILY January 22, 2024 12:00am On Hold: Resume on 10/06/24. Start: 01-22-2024 take 1 capsule by [facility] once daily Turmeric 400 mg capsule Active 400 mg PO DAILY January 22, 2024 12:00am Completed/Discontinued Medications Medication Drug Class(es) Dates Sig (Normalized) Sig (Original) acetaminophen 325 mg / oxyCODONE hydrochloride 5 mg oral tablet (16 sources) Opioid Agonist Start: 09-29-2024 End: 10-13-2024 Oxycodone-Acetamino phen (Percocet) 5-325 mg tablet Discontinued 1 {tbl} PO Q4H as needed for pain (scale score 7-10) 20 7 0 September 29, 2024 October 13, 2024 10:43am Status post hysterectomy with oophorectomy Acquired absence of both cervix and uterus Acquired absence of ovaries, unilateral Start: 05-24-2017 End: 09-28-2023 Oxycodone-Acetaminophen 1 TA BLET tablet Discontinued 1 - 2 {tbl} PO EVERY 4 HOURS NEEDED as needed for Pain 30 May 24, 2017 2:02pm September 28, 2023 7:21pm Postoperative pain Other acute postprocedural pain Start: 05-24-2017 take 1 tablet by [facility] every four hours as needed Oxycodone-Acetaminophen Active 1 - 2 TABLET PO EVERY 4 HOURS NEEDED 30 May 24, 2017 2:02pm megestrol acetate 40 mg oral tablet (16 sources) Progestin Start: 08-04-2024 End: 09-29-2024 take 1 tablet by mouth twice daily Megestrol 40 mg tablet Discontinued 40 mg PO TWICE A DAY 60 August 04, 2024 3:31pm September 29, 2024 9:25am Start: 02-19-2024 End: 08-04-2024 take 1 tablet by mouth once daily Megestrol 40 mg tablet Discontinued 40 mg PO DAILY 30 February 19, 2024 12:00am August 04, 2024 3:32pm naproxen 500 mg oral tablet (5 sources) Nonsteroidal Anti-inflammatory Drug Start: 09-29-2024 End: 10-13-2024 take 1 tablet by mouth twice daily as needed for pain Naproxen 500 mg tablet Discontinued 500 mg PO TWICE A DAY as needed for pain (scale score 4-6) 30 0 September 29, 2024 12:00am October 13, 2024 10:43am Problems Active Problems Problem Classification Problem Date Documented Date Episodic/Chronic Abdominal hernia (17 sources) Ventral incisional hernia; Translations: [Incisional hernia without obstruction or gangrene] Onset: 10-16-2024 05-27-2017 Episodic Comment on above: At the umbilicus Benign neoplasm of uterus (20 sources) Cervical fibroid; Translations: [Leiomyoma of uterus, unspecified] Onset: 10-16-2024 08-10-2024 Episodic Comment on above: on US, ordered MRI. Diabetes mellitus without complication (9 sources) Hyperglycemia; Translations: [Hyperglycemia, unspecified] 10-06-2023 Episodic Disorders of lipid metabolism (1 source) Hyperlipidemia, unspecified; Translations: [Hyperlipidemia, unspecified] Onset: 03-03-2024 Chronic Essential hypertension (20 sources) Essential hypertension; Translations: [Essential (primary) hypertension] Onset: 01-13-2024 10-06-2023 Chronic Heart valve disorders (11 sources) Heart murmur; Translations: [Cardiac murmur, unspecified] 05-27-2017 Episodic Joint disorders and dislocations; trauma-related (11 sources) Dislocation of shoulder joint; Translations: [Unspecified dislocation of unspecified shoulder joint, initial encounter] 05-27-2017 Episodic Menopausal disorders (20 sources) Postmenopausal bleeding; Translations: [Postmenopausal bleeding] Onset: 10-16-2024 07-22-2024 Chronic Comment on above: recurrent early heav y bleeding breakthrough on megacesimple hyperplasia without atypia. s/p d and c hysteroscopy. plan megace x 6 months then emb. Menstrual disorders (1 source) Excessive and frequent menstruation with irregular cycle; Translations: [Excessive and frequent menstruation with irregular cycle] Onset: 08-08-2024 Chronic Osteoarthritis (12 sources) Arthritis; Translations: [Unspecified osteoarthritis, unspecified site] Onset: 06-09-2024 05-27-2017 Chronic Comment on above: KNEES,HIPS AND FEET Other female genital disorders (1 source) Abnormal uterine and vaginal bleeding, unspecified; Translations: [Abnormal uterine and vaginal bleeding, unspecified] Onset: 08-01-2024 Chronic Other female genital disorders (1 source) Benign endometrial hyperplasia; Translations: [Benign endometrial hyperplasia] Onset: 07-29-2024 Chronic Other screening for suspected conditions (not mental disorders or infectious disease) (10 sources) Endometrium thickened; Translations: [Abnormal findings on diagnostic imaging of other specified body structures] Onset: 03-03-2024 02-19-2024 Chronic Comment on above: 23 mm Other screening for suspected conditions (not mental disorders or infectious disease) (4 sources) Patient encounter status; Translations: [Encounter for other screening for malignant neoplasm of breast] Onset: 11-09-2024 11-09-2024 Episodic Residual codes; unclassified (2 sources) Acquired absence of both cervix and uterus; Translations: [Acquired absence of both cervix and uterus] Onset: 10-13-2024 Episodic Residual codes; unclassified (2 sources) Acquired absence of ovaries, unilateral; Translations: [Acquired absence of ovaries, unilateral] Onset: 10-13-2024 Episodic Past or Other Problems Problem Classification Problem Date Documented Date Episodic/Chronic Residual codes; unclassified (20 sources) Other specified postprocedural states; Translations: [Status post hysteroscopic polypectomy] Onset: 07-22-2024 02-11-2024 Episodic Comment on above: simple hyperplasia w ithout atypia Results Test Name Value Interpretation Reference Range Facility User Acceptance Tester Office Visit Reporton 11-09-2024 User Acceptance Tester Office Visit Report [facility] [address], [address] [place] [address] OFFICE VISIT Date of Service: 11/09/24 MR#: [id number] Acct: [id number] Name: FRANCHESKA CROSS Rep #: [id number] : 1955 Provider: Dr. Allyson Nino DO Age/Sex: 69/F [place] [facility] [place]: Signed Intake Vital Signs 08/14/24 13:54 10/13/24 10:44 11/09/24 10:17 11/09/24 10:19 Height 5 ft 6 in 5 ft 6 in 5 ft 6 in 5 ft 6 in Weight: 202 lb BMI 32.5 BP 145/91 H Intake Visit Reasons: 6 wk TRH BSO Cysto [employer] Required: No Is patient in pain?: No Allergies hydrocodone (From Vicodin) Allergy (Unknown, Verified 11/09/24 10:17) Unknown Medications ???Medication ???Instructions ???Recorded ???Confirmed ???Type aspirin 81 mg tablet,delayed 81 mg PO QDAY 05/15/17 11/09/24 Hi story release (Adult Low Dose Aspirin) calcium 600 mg (as 1 cap PO DAILY 05/15/17 11/09/24 H istory carbonate)-vitamin D3 5 mcg (200 unit) capsule lisinopril 20 2 tab PO DAILY 09/28/23 11/09/24 H istory mg-hydrochlorothiazide 12.5 mg tablet amlodipine 5 mg tablet 5 mg PO QHS 01/22/24 11/09/24 Hist ory atorvastatin 10 mg tablet 10 mg PO QHS 01/22/24 11/09/24 His tory turmeric 400 mg capsule 400 mg PO DAILY 01/22/24 11/09/24 History Held on 09/29/24. Instructions: Resume on 10/06/24. antiarthritic combination no.2 900 1,500 mg PO DAILY 01/24/2411/09 History mg tablet (glucosamine-chondroit in) cholecalciferol (vitamin D3) 125 125 mcg PO QDAY 01/24/24 11/09/24 History mcg (5,000 unit) capsule metformin 500 mg tablet 500 mg PO DAILY 09/15/24 11/09/24 History docusate sodium 100 mg capsule 100 mg PO DAILY #14 caps 09/29/24 11/09/24 Rx (Colace) Is last menstrual period known: No Post menopausal: Yes Patient : No : No [facility] Medical History Wears glasses Diabetes Ambulates with cane High cholesterol Non-smoker Incisional hernia of anterior abdominal wall without obstruction or gangrene Arthritis Heart murmur Surgical History History of right salpingo-oophorectomy History of lysis of adhesions History of robot-assisted laparoscopic hysterectomy H/O total knee replacement Status post hysteroscopic polypectomy History of incisional hernia repair Dislocation, shoulder closed S/P appendectomy S/P cholecystectomy Family History Mother Hypertension Father Diabetes Son Seizures Social History number of children: 6 Smoking Status: Never smoker second hand exposure: No alcohol intake: never substance use type: does not use caffeine: No what type of physical activity do you participate in: none frequency: does not exercise seatbelt use: always additional social history: Sanchez HPI 6 wk TRH BSO Cysto Details: FRANCHESKA CROSS is a 69 year old who presents for History Past Pregnancies Del. Date Name GA/Weeks Outcome Route Bth Weight Gen Labor Lgth Anesthesia Del Locatn Provider FOB Unknown Alex Unknown Kyle Unknown Hever Unknown Huang Unknown Syd Unknown Liliana ROS ENT ENT: Reports system reviewed and no additional complaints, except as documented Cardio Card: Reports system reviewed and no additional complaints, except as documented Resp Resp: Denies cough, dyspnea or dyspnea on exertion GI GI: Denies abdominal pain, bloating or change in bowel habits : Denies vaginal odor or vaginal pruritus Details: lochia is mild Musc Musc: Reports system reviewed and no additional complaints, except as documented Exam Const General: cooperative, healthy appearing and comfortable Resp Effort Inspection: normal respiratory effort GI Palpation: soft and nontender Rectal Exam: other Other: cuff is intact and suture is dissolving. no bleeding or signs of infection Extrem General: no edema Coding Level of Care Code No Charge Diagnoses Status post hysterectomy with oophorectomy Z90.710; Z90.721 Assessment and Plan Assessment and Plan (1) Status post hysterectomy with oophorectomy: Status: Acute Comment: Robotic hyst, lysis of adhesions, cysto, and RSO. being admitted hospital day for adhesions. Orders: Orders SCRN MAMM (CAD)W/YOSEPH BILAT Today Z12.39 - Encounter for other screening for malignant neoplasm of breast Plan plan to start estrogen cream. mammogram ordered rto in one year. 11/09/24 1044 Date Allyson Sanchez Signature: Date (more content not included)... Normal [facility] User Acceptance Tester Office Visit Reporton 10-13-2024 User Acceptance Tester Office Visit Report [facility]'s [address], [address] [place] [address] OFFICE VISIT Date of Service: 10/13/24 MR#: [id number] Acct: [id number] Name: FRANCHESKA CROSS Rep #: [id number] : 1955 Provider: NAMRATA ca Age/Sex: 69/F [place] [facility] [place]: Signed Intake Vital Signs 08/14/24 13:54 09/29/24 15:49 10/13/24 10:36 10/13/24 10:44 Height 5 ft 6 in 5 ft 6 in 5 ft 6 in 5 ft 6 in Weight: 198 lb 2 oz BMI 31.9 BP 127/80 H Intake Visit Reasons: 2 wk TRH BSO Cysto Chief Complaint: 2 Week TRH BSO cysto [employer] Required: No Is patient in pain?: No Allergies hydrocodone (From Vicodin) Allergy (Unknown, Verified 10/13/24 10:36) Unknown Medications ???Medication ???Instructions ???Recorded ???Confirmed ???Type aspirin 81 mg tablet,delayed 81 mg PO QDAY 05/15/17 10/13/24 Hi story release (Adult Low Dose Aspirin) calcium 600 mg (as 1 cap PO DAILY 05/15/17 10/13/24 H istory carbonate)-vitamin D3 5 mcg (200 unit) capsule lisinopril 20 2 tab PO DAILY 09/28/23 10/13/24 H istory mg-hydrochlorothiazide 12.5 mg tablet amlodipine 5 mg tablet 5 mg PO QHS 01/22/24 10/13/24 Hist ory atorvastatin 10 mg tablet 10 mg PO QHS 01/22/24 10/13/24 His tory turmeric 400 mg capsule 400 mg PO DAILY 01/22/24 10/13/24 History Held on 09/29/24. Instructions: Resume on 10/06/24. antiarthritic combination no.2 900 1,500 mg PO DAILY 01/24/2410/13 History mg tablet (glucosamine-chondroit in) cholecalciferol (vitamin D3) 125 125 mcg PO QDAY 01/24/24 10/13/24 History mcg (5,000 unit) capsule metformin 500 mg tablet 500 mg PO DAILY 09/15/24 10/13/24 History docusate sodium 100 mg capsule 100 mg PO DAILY #14 caps 09/29/24 10/13/24 Rx (Colace) Is last menstrual period known: No Post menopausal: Yes Patient : No : No PFSH Medical History Wears glasses Diabetes Ambulates with cane High cholesterol Non-smoker Incisional hernia of anterior abdominal wall without obstruction or gangrene Arthritis Heart murmur Surgical History History of right salpingo-oophorectomy History of lysis of adhesions History of robot-assisted laparoscopic hysterectomy H/O total knee replacement Status post hysteroscopic polypectomy History of incisional hernia repair Dislocation, shoulder closed S/P appendectomy S/P cholecystectomy Family History Mother Hypertension Father Diabetes Son Seizures Social History number of children: 6 Smoking Status: Never smoker second hand exposure: No alcohol intake: never substance use type: does not use caffeine: No what type of physical activity do you participate in: none frequency: does not exercise seatbelt use: always additional social history: Sanchez SUNG 2 wk TRH BSO Cysto Details: FRANCHESKA CROSS is a 69 year old who presents for 2 wk postop TRH, BSO, cysto Dr Hercules. States can't believe how good I feel. Denies pain, bleeding, issues with bowel or bladder habits. Does have some fatigue, just rests each day. History Past Pregnancies Del. Date Name GA/Weeks Outcome Route Bth Weight Gen Labor Lgth Anesthesia Del Locatn Provider FOB Unknown Alex Unknown Kyle Unknown Hever Unknown Huang Unknown Syd Unknown Liliana Exam Const General: cooperative and no acute distress Orientation: oriented x3 GI Inspection: incision (well healed, nonerythematous) Palpation: soft and nontender Coding Level of Care Code No Charge Diagnoses Status post hysterectomy with oophorectomy Z90.710; Z90.721 Assessment and Plan Assessment and Plan (1) Status post hysterectomy with oophorectomy: Status: Acute Comment: Robotic hyst, lysis of adhesions, cysto, and RSO. being admitted hospital day for adhesions. Plan Routine postop care RTO 4 weeks Reviewed negative pathology 10/13/24 1050 Date Yen Felder POSTMASTER POSTMASTER-C Cosigner Signature: Date (if applicable) CC: Normal [facility] Anion gap in Serum or Plasma Ordered By: Allyson Deleon on 09-30-2024 Anion gap [Moles/Vol] 11 mmol/L 5-15 [facility] Automated blood erythrocyte countOrdered By: Allyson Deleon on 09-30-2024 RBC (Bld) [#/Vol] 3.53 10*6/uL Low 4.2-5.4 [facility] Comment on above: Performed By: #### L 100.0500 ####[facility] [id number] [facility] [address] [place], [place], [id number] Automated blood hematocrit ( percentage)Ordered By: Allyson Deleon on 09-30-2024 Hematocrit (Bld) [Volume fraction] 31.9 % Low 37-47 [facility] Comment on above: Performed By: #### L 100.0500 ####[facility] [address] [place], [place], [id number] BUN/creatinine ratioOrdered By: Allyson Deleon on 09-30-2024 Urea nitrogen/Creatinine [Mass ratio] 23.3 mg/mg High 10-20 [facility] Bedside Glucoseon 09-30-2024 FINGERSTICK GLU 147 mg/dL High 74-106 [facility] Comment on above: Result Comment: SANDRA SNYDER OF PATIENT CARE PER NURSING PROTOCOL Performed By: #### L 501.0900 #### [facility] [address] [place], [address] FINGERSTICK GLU 184 mg/dL High 74-106 [facility] Comment on above: Result Comment: SANDRA SNYDER OF PATIENT CARE PER NURSING PROTOCOL Performed By: #### L 501.4405, L500.4100, L501.4100 #### [facility] [address] [place], [address] Bilirubin, totalOrdered By: Allyson Deleon on 09-30-2024 Bilirubin [Mass/Vol] 0.50 mg/dL Normal 0.00-1.30 [facility] Comment on above: Performed By: #### L 501.4405, L500.4100, L501.4100 #### [facility] [address] [place], [address] CBC-Complete Blood Cnt No Di ffon 09-30-2024 RDW SD 46.2 fl High 35.1-43.9 [facility] Comment on above: Performed By: #### L 100.0500 ####[facility] [address] [place], [address] Carbon dioxide, total [Moles /volume] in Central venous bloodOrdered By: Allyson Deleon on 09-30-2024 CO2 [Moles/Vol] 21.4 mmol/L Normal 21.0-32.0 [facility] Comment on above: Performed By: #### L 501.4405, L500.4100, L501.4100 #### [facility] [address] [place], [address] Chloride assayOrdered By: Maged Deleon on 09-30-2024 Chloride [Moles/Vol] 106 mmol/L Normal 98-108 [facility] Comment on above: Performed By: #### L 501.4405, L500.4100, L501.4100 #### [facility] [address] [place], [address] Comprehensive Metabolic Prof ilon 09-30-2024 ALK PHOS 38 U/L Normal 35-104 [facility] Comment on above: Performed By: #### L 501.4405, L500.4100, L501.4100 #### [facility] [address] [place], [address] BUN/CRE 23.3 RATIO High 10-20 [facility] Comment on above: Performed By: #### L 501.4405, L500.4100, L501.4100 #### [facility] [address] [place], [address] ECRCL 57.55 ml/min Normal 50-250 [facility] Comment on above: Performed By: #### L 501.4405, L500.4100, L501.4100 #### [facility] [address] [place], [address] GAP 11 Normal 5-15 [facility] Comment on above: Performed By: #### L 501.4405, L500.4100, L501.4100 #### [facility] [address] [place], [address] Potassium [Moles/Vol] 4.1 mmol/L Normal 3.3-5.1 [facility] Comment on above: Performed By: #### L 501.4405, L500.4100, L501.4100 #### [facility] [address] [place], [address] T PROT 5.7 g/dL Low 5.9-8.4 [facility] Comment on above: Performed By: #### L 501.4405, L500.4100, L501.4100 #### [facility] [address] [place], [address] Comprehensive Metabolic Prof ilOrdered By: Allyson Deleon on 09-30-2024 AST [Catalytic activity/Vol] 38 U/L High <=31 [facility] Comment on above: Performed By: #### L 501.4405, L500.4100, L501.4100 #### [facility] [address] [place], [address] Erythrocyte distribution wid th ratioOrdered By: Allyson Deleon on 09-30-2024 Erythrocyte distribution width (RBC) [Ratio] 14.0 % Normal 11.6-14.6 [facility] Comment on above: Performed By: #### L 100.0500 ####[facility] [address] [place], [address] Erythrocyte distribution wid th standard deviationOrdered By: Allyson Deleon on 09-30-2024 Erythrocyte distribution width (RBC) [Ratio] 46.2 fl High 35.1-43.9 [facility] Glomerular filtration rate ( GFR) estimation/1.73 sq m using serum, plasma, or whole bOrdered By: Allyson Deleon on 09-30-2024 GFR/1.73 sq M.predicted among non-blacks MDRD (S/P/Bld) [Vol rate/Area] 59 mL/min/{1.73_m2} Low >60 [facility] Comment on above: mL/min/1.73m2 CKD-EP I Creatinine Equation (2020) Result Comment: mL/m in/1.73m2 CKD-EPI Creatinine Equation (2020) Performed By: #### L 501.4405, L500.4100, L501.4100 #### [facility] [address] [place], [address] [facility] deOrdered By: Allyson Deleon on 09-30-2024 Glucose [Mass/Vol] 147 mg/dL High 74-106 [facility] Comment on above: MANAGEMENT OF PATIEN T CARE PER NURSING PROTOCOL Hemoglobin measurementOrdere d By: Allyson Deleon on 09-30-2024 Hemoglobin (Bld) [Mass/Vol] 10.5 g/dL Low 12.0-15.0 [facility] Comment on above: Performed By: #### L 100.0500 ####[facility] [address] [place], [address] MCV (mean corpuscular volume ) determinationOrdered By: Allyson Deleon on 09-30-2024 MCV (RBC) [Entitic vol] 90.4 fL Normal 81-99 [facility] Comment on above: Performed By: #### L 100.0500 ####[facility] [address] [place], [address] Mean corpuscular hemoglobin (MCH) determinationOrdered By: Allyson Deleon on 09-30-2024 MCH (RBC) [Entitic mass] 29.7 pg Normal 27.0-32.0 [facility] Comment on above: Performed By: #### L 100.0500 ####[facility] [address] [place], [address] Mean corpuscular hemoglobin concentration (MCHC) determinationOrdered By: Allyson Deleon on 09-30-2024 MCHC (RBC) [Mass/Vol] 32.9 g/dL Normal 32-36 [facility] Comment on above: Performed By: #### L 100.0500 ####[facility] [address] [place], [address] Mean platelet volume determi nationOrdered By: Allyson Deleon on 09-30-2024 Platelet mean volume (Bld) [Entitic vol] 9.9 fL Normal 6.2-12.0 [facility] Comment on above: Performed By: #### L 100.0500 ####[facility] [address] [place], [address] Platelet countOrdered By: Maged Deleon on 09-30-2024 Platelets (Bld) [#/Vol] 271 10*3/uL Normal 150-450 [facility] Comment on above: Performed By: #### L 100.0500 ####[facility] [address] [place], [address] Potassium measurement (mass/ volume)Ordered By: Allyson Deleon on 09-30-2024 Potassium (Unsp spec) [Mass/Vol] 4.1 mmol/L 3.3-5.1 [facility] Serum creatinine measurement (mass/volume)Ordered By: Allyson Deleon on 09-30-2024 Creatinine [Mass/Vol] 1.02 mg/dL Normal 0.70-1.20 [facility] Comment on above: Performed By: #### L 501.4405, L500.4100, L501.4100 #### [facility] [address] [place], [address] Serum globulin measurementOr dered By: Allyson Deleon on 09-30-2024 Globulin (S) [Mass/Vol] 2.1 g/dL Low 2.2-4.2 [facility] Comment on above: Performed By: #### L 501.4405, L500.4100, L501.4100 #### [facility] [address] [place], [address] Serum glucose measurement (m ass/volume)Ordered By: Allyson Deleon on 09-30-2024 Glucose [Mass/Vol] 149 mg/dL High 70-99 [facility] Comment on above: Performed By: #### L 501.4405, L500.4100, L501.4100 #### [facility] [address] [place], [address] Serum or plasma alanine canchola otransferase (ALT) measurementOrdered By: Allyson Deleon on 09-30-2024 ALT [Catalytic activity/Vol] 34 U/L Normal <=34 [facility] Comment on above: Performed By: #### L 501.4405, L500.4100, L501.4100 #### [facility] [address] [place], [address] Serum or plasma albumin martin urement (mass/volume)Ordered By: Allyson eDleon on 09-30-2024 Albumin [Mass/Vol] 3.6 g/dL Normal 3.4-4.8 [facility] Comment on above: Performed By: #### L 501.4405, L500.4100, L501.4100 #### [facility] [address] [place], [place], [address] Serum or plasma albumin/glob ulin mass ratioOrdered By: Allyson Deleon on 09-30-2024 Albumin/Globulin [Mass ratio] 1.8 {ratio} Normal 0.9-2.4 [facility] Comment on above: Performed By: #### L 501.4405, L500.4100, L501.4100 #### [facility] [address] [place], [address] Serum or plasma alkaline rosalio sphatase measurementOrdered By: Allyson Deleon on 09-30-2024 ALP [Catalytic activity/Vol] 38 U/L 35-104 [facility] Serum or plasma calcium martin urement (mass/volume)Ordered By: Allyson Deleon on 09-30-2024 Calcium [Mass/Vol] 8.7 mg/dL Normal 7.6-11.0 [facility] Comment on above: Performed By: #### L 501.4405, L500.4100, L501.4100 #### [facility] [address] [place], [address] Serum or plasma urea nitroge n measurement (mass/volume)Ordered By: Allyson Deleon on 09-30-2024 Urea nitrogen [Mass/Vol] 24 mg/dL High 4-19 [facility] Comment on above: Performed By: #### L 501.4405, L500.4100, L501.4100 #### [facility] [address] [place], [address] Sodium levelOrdered By: Meme Deleon on 09-30-2024 Sodium [Moles/Vol] 138 mmol/L Normal 133-145 [facility] Comment on above: Performed By: #### L 501.4405, L500.4100, L501.4100 #### [facility] [address] [place], [address] Total proteinOrdered By: Alessia avila Adrienne on 09-30-2024 Protein [Mass/Vol] 5.7 g/dL Low 5.9-8.4 [facility] White blood cell (WBC) count Ordered By: Allyson Adrienne on 09-30-2024 WBC (Bld) [#/Vol] 16.9 10*3/uL High 4.4-11.0 [facility] Comment on above: Performed By: #### L 100.0500 ####[facility] [address] [place], [address] Bedside Glucoseon 09-29-2024 FINGERSTICK GLU 218 mg/dL High 74-106 [facility] Comment on above: Result Comment: SANDRA GEMENT OF PATIENT CARE PER NURSING PROTOCOL Performed By: #### L 501.4405, L500.4100, L501.4100 #### [facility] [address] [place], [address] FINGERSTICK GLU 195 mg/dL High 74-106 [facility] Comment on above: Result Comment: SANDRA GEMENT OF PATIENT CARE PER NURSING PROTOCOL Performed By: #### L 501.4405, L500.4100, L501.4100 #### [facility] [address] [place], [address] FINGERSTICK GLU 107 mg/dL High 74-106 [facility] Comment on above: Result Comment: SANRDA GEMENT OF PATIENT CARE PER NURSING PROTOCOL Performed By: #### L 501.4405, L500.4100, L501.4100 #### [facility] [address] [place], [address] FINGERSTICK GLU 86 mg/dL Normal 74-106 [facility] Comment on above: Result Comment: SANDRA SNYDER OF PATIENT CARE PER NURSING PROTOCOL Performed By: #### L 501.4405, L500.4100, L501.4100 #### [facility] [address] [place], [address] Discharge Instructionon 09-04 Discharge Instruction [facility] Medical Records Department [address] [place] [address] Instructions for Home/Discharge Instructions 09/29/24 0925 MR#: [id number] Acct: [id number] Name: FRANCHESKA CROSS Rep #: [id number] : 1955 69 From: Allyson Hercules DO PCP: Dr. Janey Camp MD Status:REG SDC Discharge Instructions Diet Discharge Diet: No restrictions DC O2, CPAP, BIPAP needs Home O2 Discharge instructions: No Dressing / Incision Discharge Activity: May Shower May resume sexual activity in: 8 weeks Weight Bearing Status: Full weight bearing Lifting Restrictions: 10 pounds for 2 weeks Dressing / Incision Call your doctor if your incision/area has: Continuous Slow Oozing, Sudden Increased Bleeding, Increased Pain/ Swelling, Increased Redness and Foul Smelling Discharge Call your doctor if you observe: Fever of 101 or Higher, Using more than 1 pad per hour, Shortness of breath, Chest pain and Uncontrolled pain Suture Line Care: Avoid Pulling/Pushing and Avoid Pinching/Bending Remove Dressing in: 1 week (if present) Cleanse incision/area with: Soap Water and Keep Dressing Clean Dry Follow Up Care Please Follow Up With: Allyson Hercules DO When: Call to make an appointment with your doctor for a postop visit in 2 and 6 weeks Test Results: Test results from this visit will be discussed in further detail at your follow-up appointment, if applicable. Discharge Plan Admission Primary Reason for Your Visit: hysterectomy Attending Provider: Allyson Hercules Primary Care Provider: Janey Camp Print Language: Greek Discharge Orders/Prescriptions Prescriptions: New docusate sodium [Colace] 100 mg capsule 100 mg PO DAILY Qty: 14 0RF naproxen 500 mg tablet 500 mg PO BID PRN (Reason: pain (scale score 4-6)) Qty: 30 0RF oxycodone-acetaminophe n [Percocet] 5-325 mg tablet 1 tab PO Q4H PRN (Reason: pain (scale score 7-10)) 7 Days Qty: 20 0RF Continued aspirin [Adult Low Dose Aspirin] 81 mg tablet,delayed release (DR/EC) 81 mg PO QDAY calcium carbonate-vitamin D3 600 mg calcium- 200 unit capsule 1 cap PO DAILY cholecalciferol (vitamin D3) 125 mcg (5,000 unit) capsule 125 mcg PO QDAY glucosamine-chondroiti n 900 mg tablet 1,500 mg PO DAILY amlodipine 5 mg tablet 5 mg PO QHS atorvastatin 10 mg tablet 10 mg PO QHS metformin 500 mg tablet 500 mg PO DAILY lisinopril-hydrochloro thiazide 20-12.5 mg tablet 2 tab PO DAILY Held turmeric 400 mg capsule 400 mg PO DAILY Hold Instructions: Resume on 10/06/24. Discontinued megestrol 40 mg tablet 40 mg PO BID Qty: 60 5RF Other Ambulatory Orders: 12 Lead EKG (Routine) Timeframe: 20240923 Location: None Selected Ordered By: Dr. Allyson Hercules Referrals / Follow Up: Janey Camp MD [Primary Care Provider] - Disposition Disposition (needs filled in before D/C Order can be placed): Home, Self Care 09/29/24 0928 Allyson Hercules DO CC: Dr. Janey Camp MD Signed Normal [facility] Glucose measurement at [facility] deOrdered By: Allyson Deleon on 09-29-2024 Glucose [Mass/Vol] 218 mg/dL [facility] 74-106 [facility] Comment on above: MANAGEMENT OF PATIEN T CARE PER NURSING PROTOCOL MR/POSTOP.ANEon 09-29-2024 MR/POSTOP.[facility] Medical Records Department [address] [place] [address] Anesthesia Postop Eval I 09/29/24 1337 MR#: [id number] Acct: [id number] Name: FRANCHESKA CROSS Rep #: [id number] : 1955 69 From: Marcelo Vick CRNA PCP: Dr. Janey Camp MD Status:REG SD Y Race: C Location: [place] [address] Anesthesia: Postop Eval I Current Vital Signs Temperature: 97.3 F Pulse Rate: 69 Blood Pressure: 106/79 Respiratory Rate: 16 Pulse Ox: 92 Oxygen Delivery Method: Nasal Cannula Oxygen Flow Rate (L/min): 2 Assessment Airway patent: Yes Spontaneous unlabored respirations: Yes Mental status: Awake and Calm nausea: No Vomiting: No Anesthesia Complication: No Fluid Hydration Crystalloid volume administer (ml): 1,300 Total IV fluid infused: 1,300 Progress Note Post-operative progress note: patient tolerated well Anesthesia document: Postop Eval 1 completed: Yes 09/29/24 1338 Date Marcelo Vick 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 WORKER Cosigner Signature: Date CC: Signed Normal [facility] MR/[id number] 09-29-2024 [facility] Medical Records Department [address] [place] [address] Anesthesia Postop Eval II 09/29/24 1339 MR#: [id number] Acct: [id number] Name: FRANCHESKA CROSS Rep #: [id number] : 1955 69 From: Marcelo Vick CRNA PCP: Dr. Janey Camp MD Status:REG [facility] Y Race: C Location: [place] [address] Anesthesia Postop Eval I Sum Postop Eval Completion status Anesthesia document: Postop Eval 1 completed: Yes Anesthesia Postop Eval I Summary Anesthesia Postop Eval I Summary: Anesthesia Postop Eval I: Assessment Summary Airway patent Yes 09/29/24 13:38 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 WORKER.MEDM Spontaneous unlabored Yes 09/29/24 13:38 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 WORKER.MEDM respirations Mental status Awake,Calm 09/29/24 13:38 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 WORKER.MEDM nausea No 09/29/24 13:38 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 WORKER.MEDM Vomiting No 09/29/24 13:38 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 WORKER.MEDM Anesthesia Postop Eval I: Fluid Summary Crystalloid volume administer 1,300 09/29/24 13:38 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 WORKER.MEDM (ml) Colloids volume administered ( ml) Blood Product volume administered (ml) Total IV fluid infused 1,300 09/29/24 13:38 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 WORKER.MEDM Anesthesia Postop Eval I: Summary Notes Anesthesia Complication No 09/29/24 13:38 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 WORKER.MEDM Anesthesia Complication Comment: Post-operative progress note patient tolerated 09/29/24 13:38 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 WORKER.MEDM well Anesthesia: Postop Eval II Evaluation Mental status: Awake and Calm Pain Level: 2 nausea: No Vomiting: No Complications Anesthesia Complication: No 09/29/24 1339 Date Marcelo Vick 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 WORKER Cosigner Signature: Date CC: Signed Normal [facility] Magnetic resonance imaging r eportOrdered By: Jose Angel Ortiz on 09-29-2024 Study report [facility] Imaging Services [address] [place] [address] Pelvis W/WO Contrast MR#: [id number] Acct: [id number] Name: FRANCHESKA CROSS Rep #: [id number] : 1955 F 69 From: Samanta Ortiz MD PCP: Dr. Janey Camp MD Status: REG CLI Study:Pelvis W/WO Contrast Date of Exam: 09/23/24 Exam# [id number] Ordering Dr: Allyson Bains DO PROCEDURE: PELVIS W/WO CONTRAST, 09/23/2024 REASON FOR EXAM: PLACEMENT OF CERVICAL FIBROID PREOP TECHNIQUE: Multisequence multiplanar MR of the pelvis was performed with and without IV contrast. IV contrast: 18 mL Clariscan COMPARISON: 07/27/2024 FINDINGS: Variable overall mild motion limitation. Some sequences are mild/moderately motion degraded. Note diffusion and coronal small [id number] T2 sequences were not performed. Visualized bowel: Diverticulosis. Lymph nodes: Unremarkable. Vasculature: Unremarkable. Peritoneum: Unremarkable. Bladder: Underdistended and suboptimally evaluated, grossly unremarkable. Reproductive Organs: Along the LEFT lateral aspect of the lower uterine segment and cranial to mid cervix, there is a T2 dark and enhancing presumed fibroid which measures 5.0 x 3.8 x 4.3 cm. This is subserosal/broadly pedunculated, however also with intramural components, with slight distortion of the endometrial and endocervical canals which are deviated slightly to the RIGHT. Few additional tiny presumed fibroids also present, largest intramural with submucosal components measuring 1.8 cm along the RIGHT fundus posteriorly. Endometrial thickness is 5 mm, borderline in the setting of abnormal postmenopausal bleeding, but potentially slightly thickened by the presence of T1 bright presumed blood products. Ovaries probably largely excluded from the field of view of axial sequences, not well seen and not well evaluated. Body Wall: Minimally imaged, not well evaluated.. Bones: Unremarkable. MRI/Pelvis W/WO Contrast IMPRESSION: 1. Exam performed for preprocedural planning. Presumed uterine fibroids as above, largest 5.0 cm along the LEFT lateral aspect of the lower uterine segment and cranial to mid cervix is broadly pedunculated/subserosa l however also with intramural components. 2. Endometrial thickness is borderline for a postmenopausal female in the setting of abnormal bleeding, and therefore endometrial neoplasia cannot be entirely excluded although this potentially slightly increased by the presence of endometrial blood products. Recommend clinical follow-up. 3. Additional description as above. Reading Location: [id number] CC: Dr. Janey Camp MD; Dr. Allyson Hercules DO ~ County Manager: Signed [facility] Operative Reporton Operative Report [facility] Medical Records Department [address] [place] [address] Operative Report 09/29/24 1319 MR#: [id number] Acct: [id number] Name: FRANCHESKA CROSS Rep #: [id number] : 1955 69 From: Allyson Hercules DO PCP: Dr. Janey Camp MD Status:[facility] Location: [place] [address] Problems Associated Problem List Diagnoses (1) Fibroid of cervix: (2) Postmenopausal bleeding: (3) Incisional hernia of anterior abdominal wall without obstruction or gangrene: Multi Select Codes Urinary/Genital Urinary/Genital CPT Codes: 72365 Cystoscopy, [address]270 TLH+BS/O <250gr uterus and Other Procedure See Report (lysis of adhesions ) Operative Report (Standard) Operative Information Date of Procedure: 09/29/24 Pre-Operative Diagnosis: postmenopausal bleeding, cervical fibroid Post-Operative Diagnosis: postmenopausal bleeding, cervical fibroid, pelvic and abdominal adhesions Surgery/Procedure Performed: total robotic hysterectomy, right salpingo-oophorectomy, lysis of adhesions, cystoscopy numerical control programmer: Yes Chocolate Packer: Jong Saul Tasks completed by information assistant: Closing, Insert Trochanter, Trocar and Retracting Additional sales assistant?: No Type of Anesthesia: General RN Documented Start/Stop Times: Operation Date: 09/29/24 10:20 Case Time Into Pre-Op 09/29/24 08:16 Out of Pre-Op 09/29/24 10:11 Anesthesia Start 09/29/24 10:16 Into Room 09/29/24 10:16 Procedure Start 09/29/24 10:42 Procedure End 09/29/24 13:03 Procedure Start Time: 10:42 Procedure Stop Time: 13:03 Select all DRAINS/GRAFTS/IMPLANTS that apply: None Estimated Blood Loss: 100cc Specimen collected: Yes Description of specimen(s) removed: uterus, cervix, right fallopian tube and ovary. Description of surgery: Findings: 12 cm size uterus,cervical fibroid normal appearing right ovary and tube, Marked pelvic and abdominal wall adhesions. On exploration of the abdominal cavity the uterus, adnexa, bowel, and liver were found to be normal. Cystoscopy showed no evidence of leaking at approximately 250 cc of normal saline, positive ureteral orifices and jet flow are seen and no suture material was appreciated in the bladder. Specimens removed: Uterus and cervix, right fallopian tube, right ovary, large cervical fibroid. Reason for surgery: This is a 69-year-old who presented to my office with history of postmenopausal bleeding secondary to large cervical fibroid. the planned procedure is for a robotic hysterectomy the risks benefits and alternatives were discussed with the patient the patient had a clear understanding of the procedure and a consent form was signed. Procedure: The patient was placed in the dorsal low lithotomy position and prepped and draped in the normal sterile fashion both abdominally and in the perineum. Her legs were placed in stirrups a Gerardo catheter was inserted into the urethra without difficulty. A weighted speculum was placed in the vagina and a single-tooth tenaculum was used to grasp the anterior lip of the cervix. An advincula uterine manipulator was inserted through the cervix without complication. It was then tied into place at the 2 and 10:00 locations on the cervix. Gloves were changed and attention was turned towards the abdomen. Approximately 21 cm above the pubic symphysis in the midline, and after Marcaine injection, a 8 mm incision was made. An 8 mm trocar was inserted through the laparoscope, then inserted into the abdomen under direct visualization using the laparoscope. Good abdominal placement was noted between 2 large bands of omental and bowel adhesions to the anterior abdominal wall, and no complications were appreciated. An air seal device was utilized to create pneumoperitoneum. At 12 cm lateral to the midline on the left and right sides 8 mm accessory ports were placed. This was performed only after removing some of the fine adhesions of the omentum with the vessel sealer device through the midline incision and the camera through the right side incision. Next a left upper quadrant 8 mm sales assistant port site was placed to be used with the air seal device. The patient was placed in steep Trendelenburg position. The robot was docked. The hysterectomy was initiated first by taking down the round ligament on each side using the vessel sealer device. The peritoneum between the round ligament and the IP ligament was opened using electrocautery and extended the length of the IP ligament. The IP ligament was then taken down using the vessel sealer device on the right side. These areas were freed without complication the broad ligament was then and taken down using the vessel sealer device. Next the bladder flap was taken down without complication. This was done using monopolar cautery to the level of the cervical vaginal junction. After the bladder flap was created, tammy (more content not included)... Normal [facility] Surgery Specimen Level Von 0 09-29-2024 Surgery Specimen Level V ------- ---- Patient Age/Sex Location Account Attending Physician ---- FRANCHESKA CROSS 69/F [facility] [id number] Dr. Allyson Hercules, Alina ---- Specimen: [id number] Received: 09/29/24 Status: MARISA Cisneros Num: [id number] Spec Type: UTERUS Subm Dr: Dr. Allyson Hercules, DO HEADER OPERATION: ERAS, laparoscopic total robotic hysterectomy PRE-OP DIAGNOSIS: Fibroid of cervix, status post hysteroscopic polypectomy, HTN, postmenopausal bleeding TISSUE SUBMITTED: A- Uterus, right fallopian tube, right ovary, fibroid and cervix ---- MICROSCOPIC DIAGNOSIS A. Uterus, right fallopian tube, right ovary, cervix, fibroid of cervix, hysterectomy and right salpingo-oophorectomy: * Cervix: no specific mucosal pathologic change - see note. * Endometrium: benign endometrial polyp arising in a background of cystic atrophy. * Myometrium: leiomyomata (5.3 cm) - see note. * Right ovary: focal fibroma, corpora albicantia. * Right fallopian tube: focal hematosalpinx. * Note: The largest nodule/fibroma has been from the uterus/cervix. The cervix is grossly noted to be disrupted. This feature along with the clinical diagnosis of fibroid of cervix suggests that the largest leiomyoma may have arisen from or near the cervix. There are focal degenerative changes and dystrophic calcification, without evidence of malignancy in these sections. MICROSCOPIC DESCRIPTION Slides are reviewed. GROSS DESCRIPTION A. Received in formalin in a container labeled with the patient's name, date of , and uterus, right fallopian tube, right ovary, fibroid and cervix is a hysterectomy specimen with attached disrupted cervix, attached right adnexa, and 2 detached shaggy possible nodules. The right adnexa are amputated and the uterus with cervix is 90.2 g and 9 cm from fundus to ectocervix, 4.5 cm from cornu to cornu, and 3.5 cm from anterior to posterior. The serosa is esparza-pink, smooth and glistening with a 0.5 x 0.5 cm protruding subserosal nodule at the posterior fundus. The ectocervical face is 2.7 x 2.2 cm, white-pink and smooth. There is a 1.0 cm slit-like os. The paracervical margin is shaggy and disrupted with protruding possible nodules. The specimen is bivalved to reveal a 3.5 cm in length by 0.7 cm in diameter esparza-pink and corrugated endocervix with multiple cystic spaces up to 0.2 cm in greatest dimension. The triangular endometrial cavity is 4.3 cm in length by 3.1 cm in width. There is red-esparza, roughened and focally granular endometrium measuring 0.1 cm in greatest thickness. The posterior left cornu is notable for an ill-defined 1.0 x 1.0 x 0.5 cm gelatinous possible ---- Patient Age/Sex Location Account Attending Physician ---- FRANCHESKA CROSS 69/F [facility] [place] [id number] Alina Simon ---- polyp which is confined to the mucosa. The esparza-pink myometrium is up to 1.9 cm in greatest thickness. There are multiple subserosal, intramural and submucosal myometrial nodules ranging from 0.5 x 0.5 x 0.4 cm to 1.5 x 1.2 x 0.9 cm. Each displays whorled and white cut surfaces with no hemorrhage or necrosis. The separate possible nodules are 3.2 x 1.3 x 1.0 cm and 5.3 x 4.1 x 3.2 cm. Sectioning of the smaller fragment reveals esparza-pink and rubbery surfaces. The largest is sectioned to reveal esparza-pink, whorled, and focally hemorrhagic surfaces consistent with fibroma with focal discolored areas. The right fimbriated fallopian tube is 4 cm in length by 0.8 cm in diameter with an unremarkable fimbriated end. Sectioning reveals a pinpoint lumen which focally contains blood. The attached right ovary appears grossly atrophic and is 1.1 g and 1.2 x 1.0 x 0.8 cm. The outer surface is esparza-pink and somewhat nodular. It is sectioned to reveal esparza-pink ovarian parenchyma with a 0.4 x 0.3 x 0.3 cm white-mosqueda cystic possible corpus albicans. No firm or papillary areas are identified. Un[employer]ist sections:A1. Anterior cervix with anterior serosal shaveA2. Posterior cervix with posterior serosal shave (including posterior subserosal nodule)A3. Anterior endomyometrium with nodules (superficial x 2)A4. Posterior endomyometrium with nodules (superficial x 2)A5. Possible polyp of posterior endometrium with protruding nodule at paracervical marginA6-7. Separate nodule and soft tissueA8 (more content not included)... Normal [facility] Comment on above: Performed By: #### L 501.4405, L500.4100, L501.4100 #### [facility] [address] [place], [address] 12 Lead EKGon 09-23-2024 12 Lead EKG [facility] Cardiovascular Services [address] [place] [address] 12 Lead EKG 09/23/24 1058 MR#: [id number] Acct: [id number] Name: FRANCHESKA CROSS Rep #: [id number] : 1955 69 From: Maurice Mac MD Attending Dr: Dr. Allyson Hercules DO Statu s: PRE SDC Ordering Dr: Allyson Hercules DO Date: 5 Location: [facility] [place] Sex: F C Admitted: Test Reason : PREOP Blood Pressure : */* mmHG Vent. Rate : 74 BPM Atrial Rate : 74 BPM P-R Int : 170 ms QRS Dur : 86 ms QT Int : 404 ms P-R-T Axes : 48 0 65 degrees QTcB Int : 448 ms Normal sinus rhythm Minimal voltage criteria for LVH, may be normal variant Nonspecific ST abnormality Abnormal ECG Confirmed by MAURICE MAC MD ([id number]), publications editor HANNA GARZA ([id number]) on 09/23/2024 1:01:18 PM Referred By: Allyson Hercules Confirmed By: MAURICE MAC MD 09/23/24 0221 Date Maurice Mac MD CC: Dr. Janey Camp MD; Dr. Allyson Hercules, DO Signed Normal [facility] Absolute lymphocyte countOrd ered By: Allyson Deleon on 09-23-2024 Lymphocytes Auto (Unsp spec) [#/Vol] 3.69 10*3/uL 0.83-4.51 [facility] Absolute neutrophil countOrd ered By: Allyson Deleon on 09-23-2024 Neutrophils (Bld) [#/Vol] 5.9 10*3/uL 2.0-7.7 [facility] Anion gap in Serum or Plasma Ordered By: Allyson Deleon on 09-23-2024 Anion gap [Moles/Vol] 12 mmol/L 5-15 [facility] Automated lymphocyte count a s percentage of total leukocytesOrdered By: Allyson Deleon on 09-23-2024 Lymphocytes/100 WBC Auto (Unsp spec) 34.6 % 19-41 [facility] BUN/creatinine ratioOrdered By: Allyson Deleon on 09-23-2024 Urea nitrogen/Creatinine [Mass ratio] 22.1 mg/mg High 10-20 [facility] Basophil percentageOrdered B y: Allyson Deleon on 09-23-2024 Basophils/100 WBC (Bld) 0.6 % 0-1 [facility] Bilirubin, totalOrdered By: Allyson Deleon on 09-23-2024 Bilirubin [Mass/Vol] 0.53 mg/dL 0.00-1.30 [facility] CBC W/Diff, Automatedon 09-04 Absolute Lymph 3.69 X10 3/uL Normal 0.83-4.51 [facility] Comment on above: Performed By: #### L 100.0100 ####[facility] [address] [place], [address] Absolute Neut 5.9 X10 3/uL Normal 2.0-7.7 [facility] Comment on above: Performed By: #### L 100.0100 ####[facility] [address] [place], [address] Basophils/100 WBC (Bld) 0.6 % Normal 0-1 [facility] Comment on above: Performed By: #### L 100.0100 ####[facility] [address] [place], [address] Eosinophils/100 WBC (Bld) 3.1 % Normal 0-5 [facility] Comment on above: Performed By: #### L 100.0100 ####[facility] [address] [place], [address] Erythrocyte distribution width (RBC) [Ratio] 14.2 % Normal 11.6-14.6 [facility] Comment on above: Performed By: #### L 100.0100 ####[facility] [address] [place], [address] Hematocrit (Bld) [Volume fraction] 40.0 % Normal 37-47 [facility] Comment on above: Performed By: #### L 100.0100 ####[facility] [address] [place], [address] Hemoglobin (Bld) [Mass/Vol] 13.0 g/dL Normal 12.0-15.0 [facility] Comment on above: Performed By: #### L 100.0100 ####[facility] [address] [place], [address] IG% 0.400 Normal 0.0-0.9 [facility] Comment on above: Result Comment: IG% - Immature Granulocytes (promyelocytes, myelocytes and metamyelocytes) > 1% indicates that a LEFT SHIFT is Present. Performed By: #### L 100.0100 ####[facility] [address] [place], [address] Lymphocytes/100 WBC (Bld) 34.6 % Normal 19-41 [facility] Comment on above: Performed By: #### L 100.0100 ####[facility] [address] [place], [address] MCH (RBC) [Entitic mass] 29.7 pg Normal 27.0-32.0 [facility] Comment on above: Performed By: #### L 100.0100 ####[facility] [address] [place], [address] MCHC (RBC) [Mass/Vol] 32.5 g/dL Normal 32-36 [facility] Comment on above: Performed By: #### L 100.0100 ####[facility] [address] [place], [address] MCV (RBC) [Entitic vol] 91.3 fL Normal 81-99 [facility] Comment on above: Performed By: #### L 100.0100 ####[facility] [address] [place], [address] Monocytes/100 WBC (Bld) 6.0 % Normal 0-10 [facility] Comment on above: Performed By: #### L 100.0100 ####[facility] [address] [place], [address] Neutrophils/100 WBC (Bld) 55.3 % Normal 47-70 [facility] Comment on above: Performed By: #### L 100.0100 ####[facility] [address] [place], [address] Nucleated RBC (Bld) [#/Vol] 0 10*3/uL Normal 0-5 [facility] Comment on above: Performed By: #### L 100.0100 ####[facility] [address] [place], [address] Platelet mean volume (Bld) [Entitic vol] 10.0 fL Normal 6.2-12.0 [facility] Comment on above: Performed By: #### L 100.0100 ####[facility] [address] [place], [address] Platelets (Bld) [#/Vol] 333 10*3/uL Normal 150-450 [facility] Comment on above: Performed By: #### L 100.0100 ####[facility] [address] [place], [address] RBC (Bld) [#/Vol] 4.38 10*6/uL Normal 4.2-5.4 [facility] Comment on above: Performed By: #### L 100.0100 ####[facility] [address] [place], [address] RDW SD 47.6 fl High 35.1-43.9 [facility] Comment on above: Performed By: #### L 100.0100 ####[facility] [address] [place], [address] WBC (Bld) [#/Vol] 10.7 10*3/uL Normal 4.4-11.0 [facility] Comment on above: Performed By: #### L 100.0100 ####[facility] [address] [place], [address] Carbon dioxide, total [Moles /volume] in Central venous bloodOrdered By: Allyson Deleon on 09-23-2024 CO2 [Moles/Vol] 22.3 mmol/L 21.0-32.0 [facility] Chloride assayOrdered By: Maged Deleon on 09-23-2024 Chloride [Moles/Vol] 108 mmol/L 98-108 [facility] Comprehensive Metabolic Prof ilon 09-23-2024 Albumin [Mass/Vol] 4.2 g/dL Normal 3.4-4.8 [facility] Comment on above: Performed By: #### L 501.4405, L500.4100, L501.4100 #### [facility] [address] [place], [address] Albumin/Globulin [Mass ratio] 1.6 {ratio} Normal 0.9-2.4 [facility] Comment on above: Performed By: #### L 501.4405, L500.4100, L501.4100 #### [facility] [address] [place], [address] ALK PHOS 48 U/L Normal 35-104 [facility] Comment on above: Performed By: #### L 501.4405, L500.4100, L501.4100 #### [facility] [address] [place], [address] ALT [Catalytic activity/Vol] 6 U/L Normal <=34 [facility] Comment on above: Performed By: #### L 501.4405, L500.4100, L501.4100 #### [facility] [address] [place], [address] AST [Catalytic activity/Vol] 12 U/L Normal <=31 [facility] Comment on above: Performed By: #### L 501.4405, L500.4100, L501.4100 #### [facility] [address] [place], [address] Bilirubin [Mass/Vol] 0.53 mg/dL Normal 0.00-1.30 [facility] Comment on above: Performed By: #### L 501.4405, L500.4100, L501.4100 #### [facility] [address] [place], [address] BUN/CRE 22.1 RATIO High 10-20 [facility] Comment on above: Performed By: #### L 501.4405, L500.4100, L501.4100 #### [facility] [address] [place], [address] Calcium [Mass/Vol] 9.5 mg/dL Normal 7.6-11.0 [facility] Comment on above: Performed By: #### L 501.4405, L500.4100, L501.4100 #### [facility] [address] [place], [address] Chloride [Moles/Vol] 108 mmol/L Normal 98-108 [facility] Comment on above: Performed By: #### L 501.4405, L500.4100, L501.4100 #### [facility] [address] [place], [address] CO2 [Moles/Vol] 22.3 mmol/L Normal 21.0-32.0 [facility] Comment on above: Performed By: #### L 501.4405, L500.4100, L501.4100 #### [facility] [address] [place], [address] Creatinine [Mass/Vol] 1.10 mg/dL Normal 0.70-1.20 [facility] Comment on above: Performed By: #### L 501.4405, L500.4100, L501.4100 #### [facility] [address] [place], [address] GAP 12 Normal 5-15 [facility] Comment on above: Performed By: #### L 501.4405, L500.4100, L501.4100 #### [facility] [address] [place], [address] GFR/1.73 sq M.predicted among non-blacks MDRD (S/P/Bld) [Vol rate/Area] 54 mL/min/{1.73_m2} Low >60 [facility] Comment on above: Result Comment: mL/m in/1.73m2 CKD-EPI Creatinine Equation (2020) Performed By: #### L 501.4405, L500.4100, L501.4100 #### [facility] [address] [place], [address] Globulin (S) [Mass/Vol] 2.6 g/dL Normal 2.2-4.2 [facility] Comment on above: Performed By: #### L 501.4405, L500.4100, L501.4100 #### [facility] [address] [place], [address] Glucose [Mass/Vol] 105 mg/dL High 70-99 [facility] Comment on above: Performed By: #### L 501.4405, L500.4100, L501.4100 #### [facility] [address] [place], [address] Potassium [Moles/Vol] 3.9 mmol/L Normal 3.3-5.1 [facility] Comment on above: Performed By: #### L 501.4405, L500.4100, L501.4100 #### [facility] [address] [place], [address] Sodium [Moles/Vol] 142 mmol/L Normal 133-145 [facility] Comment on above: Performed By: #### L 501.4405, L500.4100, L501.4100 #### [facility] [address] [place], [address] T PROT 6.8 g/dL Normal 5.9-8.4 [facility] Comment on above: Performed By: #### L 501.4405, L500.4100, L501.4100 #### [facility] [address] [place], [address] Urea nitrogen [Mass/Vol] 24 mg/dL High 4-19 [facility] Comment on above: Performed By: #### L 501.4405, L500.4100, L501.4100 #### [facility] [address] [place], [address] Electrocardiogram reportOrde red By: Maurice Mac on 09-23-2024 EKG study [facility] Cardiovascular Services [address] [place] [address] 12 Lead EKG 09/23/24 1058 MR#: [id number] Acct: [id number] Name: FRANCHESKA CROSS Rep #:[id number] : 1955 69 From: Maurice Mac MD Attending Dr: Dr. Allyson Hercules DO Status: PRE SDC Ordering Dr: Allyson Hercules DO D ate: 09/23/24 Location: [facility] [place] Sex: F C Admitted: Test Reason : PREOP Blood Pressure : */* mmHG Vent. Rate : 74 BPM Atrial Rate : 74 BPM P-R Int : 170 ms QRS Dur : 86 ms QT Int : 404 ms P-R-T Axes : 48 0 65 degrees QTcB Int : 448 ms Normal sinus rhythm Minimal voltage criteria for LVH, may be normal variant Nonspecific ST abnormality Abnormal ECG Confirmed by BUBBA GARCIA, MAURICE ([id number]), publications editor HANNA GARZA ([id number]) on 51:01:18 PM Referred By: Allyson Hercules Confirmed By: MAURICE MAC MD 09/23/24 1301 Date _ Maurice Mac MD CC: Dr. Janey Camp MD; Dr. Allyson Hercules DO ~ Signed [facility] Other Phone: Eosinophil percentageOrdered By: Allyson Deleon on 09-23-2024 Eosinophils/100 WBC (Bld) 3.1 % 0-5 [facility] Erythrocyte distribution wid th ratioOrdered By: Allyson Deleon on 09-23-2024 Erythrocyte distribution width (RBC) [Ratio] 14.2 % 11.6-14.6 [facility] Erythrocyte distribution wid th standard deviationOrdered By: Allyson Deleon on 09-23-2024 Erythrocyte distribution width (RBC) [Ratio] 47.6 fl High 35.1-43.9 [facility] Glomerular filtration rate ( GFR) estimation/1.73 sq m using serum, plasma, or whole bOrdered By: Allyson Deleon on 09-23-2024 GFR/1.73 sq M.predicted among non-blacks MDRD (S/P/Bld) [Vol rate/Area] 54 mL/min/{1.73_m2} Low >60 [facility] Comment on above: mL/min/1.73m2 CKD-EP I Creatinine Equation (2020) Hematocrit Auto (Bld) [Volum e fraction]Ordered By: Allyson Deleon on 09-23-2024 Hematocrit (Bld) [Volume fraction] 40.0 % 37-47 [facility] Hemoglobin A1con 09-23-2024 HbA1c (Bld) [Mass fraction] 6.2 % High <=5.6 [facility] Comment on above: Result Comment: Norm al < 5.7 % Prediabetic 5.7 - 6.4 % Diabetic >or= 6.5 % Please note range changes. Performed By: #### L 501.4405, L500.4100, L501.4100 #### [facility] [address] [place] [address]. [place], [address] Hemoglobin A1c percentageOrd ered By: Allyson Deleon on 09-23-2024 HbA1c (Bld) [Mass fraction] 6.2 % High <5.7 [facility] Comment on above: Normal < 5.7 % Predi abetic 5.7 - 6.4 % Diabetic >or= 6.5 % Please note range changes. Hemoglobin measurementOrdere d By: Allyson Deleon on 09-23-2024 Hemoglobin (Bld) [Mass/Vol] 13.0 g/dL 12.0-15.0 [facility] Immature granulocytes/100 WB C Auto (Bld)Ordered By: Allyson Deleon on 09-23-2024 Immature granulocytes/100 WBC (Bld) 0.400 % 0.0-0.9 [facility] Comment on above: IG% - Immature Granu locytes (promyelocytes, myelocytes and metamyelocytes) > 1% indicates that a LEFT SHIFT is Present. Laboratory - Chemistry and C hemistry - challengeOrdered By: Allyson Adrienne on 09-23-2024 AST [Catalytic activity/Vol] 12 U/L <32 [facility] MCV (mean corpuscular volume ) determinationOrdered By: Allyson Yeruth on 09-23-2024 MCV (RBC) [Entitic vol] 91.3 fL 81-99 [facility] MR/PAT.ANEon 09-23-2024 MR/PAT.ANE [facility] Medical Records Department [address] [place] [address] PAT - Anesthesia 09/23/24 1309 MR#: [id number] Acct: [id number] Name: FRANCHESKA CROSS Rep #: [id number] : 1955 69 From: Gamaliel Moya MD PCP: Dr. Janey Camp MD Status:PRE [facility] [place] Y Race: C Location: [facility] [place] Pre-Assessment Diagnosis/Proposed Procedure Planned Operative Procedure(s): Lap Total Robotic Hysterectomy BSO, Cystoscopy Anesthesia History Anesthesia History - supervisor sample: Anesthesia History - supervisor sample Hx Hospitalization No 09/15/24 14:08 Any Problems With Anesthesia No 09/15/24 14:08 Cholinesterase deficiency No 09/15/24 14:08 You/Your Family Experience No 09/15/24 14:08 fever (hyperthermia) with Relationship Recent Exposure to Contagious No 02/04/24 11:05 Disease Does patient have nerve No 09/15/24 14:08 stimulator Patient instructed to have device shut off --Does patient have Pacemaker or ICD? When Was Last Pacemaker Check QUESTION #4 FULL TEXT: You/Your Family Experience fever (hyperthermia) with Anesthesia Last Oral Intake Last Oral intake: Last Oral Intake NPO since Meds taken in AM with sips of water? Meds patient instructed to take am of surgery PONV PONV - supervisor sample: PONV - supervisor sample Female Yes 09/15/24 14:08 HX of Motion Sickness No 09/15/24 14:08 HX of N/V After Surgery Yes 09/15/24 14:08 Non-Smoker Yes 09/15/24 14:08 Duration of Surgery greater Yes 09/15/24 14:08 than 60 minutes Number of Risk Factors 4 09/15/24 14:08 PONV Score Severe Risk 09/15/24 14:08 Height Weight Height Weight: Anesthesia: Height Weight Height 5 ft 6 in 08/14/24 13:54 Respiratory Assessment Respiratory Assessment - supervisor sample: Respiratory Tract Infection Hx - supervisor sample Hx Respiratory Tract Infection No 09/15/24 14:08 STOP Sleep Apnea STOP Sleep Apnea - supervisor sample: STOP Sleep Apnea - supervisor sample Hx Hypertension Yes 09/15/24 14:08 Hx Sleep Apnea No 09/15/24 14:08 CPAP BIPAP Do you snore loudly (louder No 09/15/24 14:08 than talking or can be heard Do you often feel tired/ No 09/15/24 14:08 fatigued/ sleepy during daytime? Has anyone observed you stop No 09/15/24 14:08 breathing during sleep? STOP Results Negative 09/15/24 14:08 QUESTION #5 FULL TEXT : Do you snore loudly (louder than talking or can be heard through closed doors)? 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 Specify any problems Hx of Preganancy in last 3 No 09/15/24 14:08 Months Nurse Filling Out Transfusion [facility] 09/15/24 14:08 Questions: Date: 09/15/24 09/15/24 14:08 Time: 14:14 09/15/24 14:08 Patient unable to answer at this time (ie. confused, unrespo /Reproduction History /Reproductive History - supervisor sample: /Reproductive Hx- supervisor sample Hx Now No 09/15/24 14:08 Gestational Age (in weeks): EDC: Hx Hx Para Hx Section SAB No 09/15/24 14:08 [facility] Medical History Wears glasses Diabetes Ambulates with cane High cholesterol Non-smoker Incisional hernia of anterior abdominal wall without obstruction or gangrene Arthritis Heart murmur Home Medications ???Medication ???Instructions ???Recorded ???Last Taken ???Type aspirin 81 mg tablet,delayed 81 mg PO QDAY 05/15/17 05/19/17 Hi story release (Adult Low Dose Aspirin) calcium 600 mg (as 1 cap PO DAILY 05/15/17 05/19/17 H istory carbonate)-vitamin D3 5 mcg (200 unit) capsule lisinopril 20 2 tab PO DAILY 09/28/23 Unknown Hi story mg-hydrochlorothiazide 12.5 mg tablet amlodipine 5 mg tablet 5 mg PO QHS 01/22/24 Unknown Histo ry atorvastatin 10 mg tablet 10 mg PO QHS 01/22/24 Unknown Hist ory turmeric 400 mg capsule 400 mg PO DAILY 01/22/24 Unknown H istory antiarthritic combination no.2 900 1,500 mg PO DAILY 01/24/24 Unkno wn History (more content not included)... Normal [facility] Magnesiumon 09-23-2024 Magnesium [Mass/Vol] 2.1 mg/dL Normal 1.5-2.2 [facility] Comment on above: Performed By: #### L 501.5200, L500.4050, BTSPAT, L501.9985 ####[facility] [address] [place], [place], [id number] Magnesium measurement (mass/ volume)Ordered By: Allyson Deleon on 09-23-2024 Magnesium (Unsp spec) [Mass/Vol] 2.1 mg/dL 1.5-2.2 [facility] Mean corpuscular hemoglobin (MCH) determinationOrdered By: Allyson Deleon on 09-23-2024 MCH (RBC) [Entitic mass] 29.7 pg 27.0-32.0 [facility] Mean corpuscular hemoglobin concentration (MCHC) determinationOrdered By: Allyson Deleon on 09-23-2024 MCHC (RBC) [Mass/Vol] 32.5 g/dL 32-36 [facility] Mean platelet volume determi nationOrdered By: Allyson Deleon on 09-23-2024 Platelet mean volume (Bld) [Entitic vol] 10.0 fL 6.2-12.0 [facility] Monocyte percentageOrdered B y: Allyson Deleon on 09-23-2024 Monocytes/100 WBC (Bld) 6.0 % 0-10 [facility] Neutrophil percentageOrdered By: Allyson Deleon on 09-23-2024 Neutrophils/100 WBC (Bld) 55.3 % 47-70 [facility] Nucleated red blood cell per centageOrdered By: Allyson Deleon on 09-23-2024 Nucleated RBC/100 WBC (Bld) [Ratio] 0 % 0-5 [facility] User Acceptance Tester Office Visit Reporton 09-23-2024 User Acceptance Tester Office Visit Report [facility] [address], [address] [place] [address] OFFICE VISIT Date of Service: 09/23/24 MR#: [id number] Acct: [id number] Name: FRANCHESKA CROSS Rep #: [id number] : 1955 Provider: Dr. Allyson Nino, Age/Sex: 69/F [place] [facility] Status: Signed Intake Vital Signs 08/14/24 13:54 09/23/24 09:37 09/23/24 09:38 Height 5 ft 6 in 5 ft 6 in 5 ft 6 in Weight: 196 lb 198 lb 4 oz BMI 31.6 32.0 BP 116/70 113/75 Intake Visit Reasons: TRH BSO cyst [employer] Required: No Is patient in pain?: No Allergies hydrocodone (From Vicodin) Allergy (Unknown, Verified 09/23/24 09:36) Unknown Medications ???Medication ???Instructions ???Recorded ???Confirmed ???Type aspirin 81 mg tablet,delayed 81 mg PO QDAY 05/15/17 09/23/24 Hi story release (Adult Low Dose Aspirin) calcium 600 mg (as 1 cap PO DAILY 05/15/17 09/23/24 H istory carbonate)-vitamin D3 5 mcg (200 unit) capsule lisinopril 20 2 tab PO DAILY 09/28/23 09/23/24 H istory mg-hydrochlorothiazide 12.5 mg tablet amlodipine 5 mg tablet 5 mg PO QHS 01/22/24 09/23/24 Hist ory atorvastatin 10 mg tablet 10 mg PO QHS 01/22/24 09/23/24 His tory turmeric 400 mg capsule 400 mg PO DAILY 01/22/24 09/23/24 History antiarthritic combination no.2 900 1,500 mg PO DAILY 01/24/2409/23 History mg tablet (glucosamine-chondroit in) cholecalciferol (vitamin D3) 125 125 mcg PO QDAY 01/24/24 09/23/24 History mcg (5,000 unit) capsule megestrol 40 mg tablet 40 mg PO BID #60 tabs 08/04/24 Rx metformin 500 mg tablet 500 mg PO DAILY 09/15/24 09/23/24 History Is last menstrual period known: No Post menopausal: Yes Patient : No : No [facility] Medical History Wears glasses Diabetes Ambulates with cane High cholesterol Non-smoker Incisional hernia of anterior abdominal wall without obstruction or gangrene Arthritis Heart murmur Surgical History H/O total knee replacement Status post hysteroscopic polypectomy History of incisional hernia repair Dislocation, shoulder closed S/P appendectomy S/P cholecystectomy Family History Mother Hypertension Father Diabetes Son Seizures Social History number of children: 6 Smoking Status: Never smoker second hand exposure: No alcohol intake: never substance use type: does not use caffeine: No what type of physical activity do you participate in: none frequency: does not exercise seatbelt use: always additional social history: [place] [facility] BSO cyst Details: FRANCHESKA CROSS is a 69 year old who presents for pre-op robotic hyst. She is a (all vaginal deliveries) who has on and off vaginal bleeding ( postmenopausal bleeding). She had a d and c in february that showed hyperplasia, she has been on megace since. she has had an increase in bleeding since the weekend. she has been feeling good no cramping. she has gone through two diapers a day two days over the weekend and now is only spotting. EMB was easily obtained in the office by Dr Beal and was benign. Ultrasound shows a cervical fibroid that is likely degrading. EXAM: US Pelvis Transvaginal CLINICAL INDICATION: AUB, POST D C TECHNIQUE: Real-time transvaginal pelvic ultrasound with image documentation. Transvaginal imaging was used for better evaluation of the endometrium and adnexa. COMPARISON: No relevant prior studies available. FINDINGS: UTERUS/CERVIX: Cervical fibroid measuring 4.6 x 4.0 x 3.8 cm. Normal endometrial stripe thickness. The uterus measures 7.7 x 5.3 x 3.7 cm. RIGHT OVARY: Right ovary not visualized. LEFT OVARY: Left ovary not visualized. FREE FLUID: No fluid. BLADDER: Empty bladder which cannot be evaluated with this probe. US/Transvaginal Non- IMPRESSION: Fibroid as above. History Past Pregnancies Del. Date Name GA/Weeks Outcome Route Bth Weight Gen Labor Lgth Anesthesia Del Locatn Provider FOB Unknown Alex Unknown Kyle Unknown Hever Unknown Huang Unknown Syd Unknown Liliana ROS Const ROS Unobtainable: All systems reviewed are unremarkable except as noted in H Resp Resp: Reports system reviewed and no additional complaints, except as documented; Denies cough GI GI: Reports as per HPI Psych Psych: Reports system reviewed and no additional complaints, except as documented Exam Const General: cooperative, healthy appearing, comfortable and no acute distress Resp Effort Inspection: normal respiratory effort Skin (more content not included)... Normal [facility] Pelvis W/WO Contraston 09-23 Pelvis W/WO Contrast [facility] Imaging Services [address] [place] [address] Pelvis W/WO Contrast MR#: [id number] Acct: [id number] Name: FRANCHESKA CROSS Rep #: [id number] : 1955 F 69 From: Jose Angel Ortiz MD PCP: Dr. Janey Camp MD Status: REG CLI Study: Pelvis W/WO Contrast Date of Exam: 09/23/24 Exam# [id number] Ordering Dr: Allyson Hercules DO PROCEDURE: PELVIS W/WO CONTRAST, 09/23/2024 REASON FOR EXAM: PLACEMENT OF CERVICAL FIBROID PREOP TECHNIQUE: Multisequence multiplanar MR of the pelvis was performed with and without IV contrast. IV contrast: 18 mL Clariscan COMPARISON: 07/27/2024 FINDINGS: Variable overall mild motion limitation. Some sequences are mild/moderately motion degraded. Note diffusion and coronal small mujgi-ca-ymnq T2 sequences were not performed. Visualized bowel: Diverticulosis. Lymph nodes: Unremarkable. Vasculature: Unremarkable. Peritoneum: Unremarkable. Bladder: Underdistended and suboptimally evaluated, grossly unremarkable. Reproductive Organs: Along the LEFT lateral aspect of the lower uterine segment and cranial to mid cervix, there is a T2 dark and enhancing presumed fibroid which measures 5.0 x 3.8 x 4.3 cm. This is subserosal/broadly pedunculated, however also with intramural components, with slight distortion of the endometrial and endocervical canals which are deviated slightly to the RIGHT. Few additional tiny presumed fibroids also present, largest intramural with submucosal components measuring 1.8 cm along the RIGHT fundus posteriorly. Endometrial thickness is 5 mm, borderline in the setting of abnormal postmenopausal bleeding, but potentially slightly thickened by the presence of T1 bright presumed blood products. Ovaries probably largely excluded from the field of view of axial sequences, not well seen and not well evaluated. Body Wall: Minimally imaged, not well evaluated.. Bones: Unremarkable. MRI/Pelvis W/WO Contrast IMPRESSION: 1. Exam performed for preprocedural planning. Presumed uterine fibroids as above, largest 5.0 cm along the LEFT lateral aspect of the lower uterine segment and cranial to mid cervix is broadly pedunculated/subserosa l however also with intramural components. 2. Endometrial thickness is borderline for a postmenopausal female in the setting of abnormal bleeding, and therefore endometrial neoplasia cannot be entirely excluded although this potentially slightly increased by the presence of endometrial blood products. Recommend clinical follow-up. 3. Additional description as above. Reading Location: [facility] CC: Dr. Janey Camp MD; Dr. Allyson Hercules DO County Manager: Signed Normal [facility] Platelet countOrdered By: Maged Deleon on 09-23-2024 Platelets (Bld) [#/Vol] 333 10*3/uL 150-450 [facility] Potassium measurement (mass/ volume)Ordered By: Allyson Deleon on 09-23-2024 Potassium (Unsp spec) [Mass/Vol] 3.9 mmol/L 3.3-5.1 [facility] RBC Auto (Bld) [#/Vol]Ordere d By: Allyson Deleon on 09-23-2024 RBC (Bld) [#/Vol] 4.38 10*6/uL 4.2-5.4 [facility] Serum creatinine measurement (mass/volume)Ordered By: Allyson Deleon on 09-23-2024 Creatinine [Mass/Vol] 1.10 mg/dL 0.70-1.20 [facility] Serum globulin measurementOr dered By: Allyson Deleon on 09-23-2024 Globulin (S) [Mass/Vol] 2.6 g/dL 2.2-4.2 [facility] Serum glucose measurement (m ass/volume)Ordered By: Allyson Deleon on 09-23-2024 Glucose [Mass/Vol] 105 mg/dL High 70-99 [facility] Serum or plasma alanine canchola otransferase (ALT) measurementOrdered By: Allyson Deleon on 09-23-2024 ALT [Catalytic activity/Vol] 6 U/L <35 [facility] Serum or plasma albumin martin urement (mass/volume)Ordered By: Allyson Deleon on 09-23-2024 Albumin [Mass/Vol] 4.2 g/dL 3.4-4.8 [facility] Serum or plasma albumin/glob ulin mass ratioOrdered By: Allyson Deleon on 09-23-2024 Albumin/Globulin [Mass ratio] 1.6 {ratio} 0.9-2.4 [facility] Serum or plasma alkaline rosalio sphatase measurementOrdered By: Allyson Deleon on 09-23-2024 ALP [Catalytic activity/Vol] 48 U/L 35-104 [facility] Serum or plasma calcium martin urement (mass/volume)Ordered By: Allyson Deleon on 09-23-2024 Calcium [Mass/Vol] 9.5 mg/dL 7.6-11.0 [facility] Serum or plasma urea nitroge n measurement (mass/volume)Ordered By: Allyson Deleon on 09-23-2024 Urea nitrogen [Mass/Vol] 24 mg/dL High 4-19 [facility] Sodium levelOrdered By: Meme Deleon on 09-23-2024 Sodium [Moles/Vol] 142 mmol/L 133-145 [facility] Total proteinOrdered By: Alessia Deleon on 09-23-2024 Protein [Mass/Vol] 6.8 g/dL 5.9-8.4 [facility] Type AND Screen - PAT ONLYon 09-23-2024 ABO and Rh group Nom (Bld) Blood group O Rh(D) positive Normal [facility] Comment on above: Order Comment: PER P T-DO BOTH DR KERMIT CAMP-LIPID,AST,ALT CONNIE-OTHER TESTS Order Date: 12/31/23 Order Info: [id number] - LIPID Order Info: [id number] - AST Order Info: [id number] - ALT Performed By: #### L 501.4405, L500.4100, L501.4100 #### [facility] [address] [place], [place], [id number] White blood cell (WBC) count Ordered By: Allyson Deleon on 09-23-2024 WBC (Bld) [#/Vol] 10.7 10*3/uL 4.4-11.0 [facility] Absolute lymphocyte countOrd ered By: Selina Beal on 08-05-2024 Lymphocytes Auto (Unsp spec) [#/Vol] 3.10 10*3/uL 0.83-4.51 [facility] Absolute neutrophil countOrd ered By: Selina Beal on 08-05-2024 Neutrophils (Bld) [#/Vol] 5.9 10*3/uL 2.0-7.7 [facility] Automated lymphocyte count a s percentage of total leukocytesOrdered By: Selina Beal on 08-05-2024 Lymphocytes/100 WBC Auto (Unsp spec) 31.8 % 19-41 [facility] Basophil percentageOrdered B y: Selina Beal on 08-05-2024 Basophils/100 WBC (Bld) 0.6 % 0-1 [facility] CBC W/Diff, Automatedon Absolute Lymph 3.10 X10 3/uL Normal 0.83-4.51 [facility] Comment on above: Performed By: #### L 100.0100 ####[facility] [address] [place], [address] Absolute Neut 5.9 X10 3/uL Normal 2.0-7.7 [facility] Comment on above: Performed By: #### L 100.0100 ####[facility] [address] [place], [address] Basophils/100 WBC (Bld) 0.6 % Normal 0-1 [facility] Comment on above: Performed By: #### L 100.0100 ####[facility] [address] [place], [address] Eosinophils/100 WBC (Bld) 2.5 % Normal 0-5 [facility] Comment on above: Performed By: #### L 100.0100 ####[facility] [address] [place], [address] Erythrocyte distribution width (RBC) [Ratio] 14.5 % Normal 11.6-14.6 [facility] Comment on above: Performed By: #### L 100.0100 ####[facility] [address] [place], [address] Hematocrit (Bld) [Volume fraction] 37.3 % Normal 37-47 [facility] Comment on above: Performed By: #### L 100.0100 ####[facility] [address] [place], [address] Hemoglobin (Bld) [Mass/Vol] 12.0 g/dL Normal 12.0-15.0 [facility] Comment on above: Performed By: #### L 100.0100 ####[facility] [address] [place], [address] IG% 0.300 Normal 0.0-0.9 [facility] Comment on above: Result Comment: IG% - Immature Granulocytes (promyelocytes, myelocytes and metamyelocytes) > 1% indicates that a LEFT SHIFT is Present. Performed By: #### L 100.0100 ####[facility] [address] [place], [address] Lymphocytes/100 WBC (Bld) 31.8 % Normal 19-41 [facility] Comment on above: Performed By: #### L 100.0100 ####[facility] [address] [place], [address] MCH (RBC) [Entitic mass] 29.2 pg Normal 27.0-32.0 [facility] Comment on above: Performed By: #### L 100.0100 ####[facility] [address] [place], [address] MCHC (RBC) [Mass/Vol] 32.2 g/dL Normal 32-36 [facility] Comment on above: Performed By: #### L 100.0100 ####[facility] [address] [place], [address] MCV (RBC) [Entitic vol] 90.8 fL Normal 81-99 [facility] Comment on above: Performed By: #### L 100.0100 ####[facility] [address] [place], [address] Monocytes/100 WBC (Bld) 4.1 % Normal 0-10 [facility] Comment on above: Performed By: #### L 100.0100 ####[facility] [address] [place], [address] Neutrophils/100 WBC (Bld) 60.7 % Normal 47-70 [facility] Comment on above: Performed By: #### L 100.0100 ####[facility] [address] [place], [address] Nucleated RBC (Bld) [#/Vol] 0 10*3/uL Normal 0-5 [facility] Comment on above: Performed By: #### L 100.0100 ####[facility] [address] [place], [address] Platelet mean volume (Bld) [Entitic vol] 10.0 fL Normal 6.2-12.0 [facility] Comment on above: Performed By: #### L 100.0100 ####[facility] [address] [place], [address] Platelets (Bld) [#/Vol] 328 10*3/uL Normal 150-450 [facility] Comment on above: Performed By: #### L 100.0100 ####[facility] [address] [place], [address] RBC (Bld) [#/Vol] 4.11 10*6/uL Low 4.2-5.4 [facility] Comment on above: Performed By: #### L 100.0100 ####[facility] [address] [place], [address] RDW SD 47.6 fl High 35.1-43.9 [facility] Comment on above: Performed By: #### L 100.0100 ####[facility] [address] [place], [address] WBC (Bld) [#/Vol] 9.7 10*3/uL Normal 4.4-11.0 [facility] Comment on above: Performed By: #### L 100.0100 ####[facility] [address] [place], [address] Eosinophil percentageOrdered By: Selina Beal on 08-05-2024 Eosinophils/100 WBC (Bld) 2.5 % 0-5 [facility] Erythrocyte distribution wid th (RBC) [Ratio]Ordered By: Selina Bael on 08-05-2024 Erythrocyte distribution width (RBC) [Entitic vol] 47.6 fL High 35.1-43.9 [facility] Erythrocyte distribution wid th ratioOrdered By: Selina Beal on 08-05-2024 Erythrocyte distribution width (RBC) [Ratio] 14.5 % 11.6-14.6 [facility] Erythrocyte distribution wid th standard deviationOrdered By: Selina Beal on 08-05-2024 Erythrocyte distribution width (RBC) [Ratio] 47.6 fl High 35.1-43.9 [facility] Hematocrit Auto (Bld) [Volum e fraction]Ordered By: Selina Beal on 08-05-2024 Hematocrit (Bld) [Volume fraction] 37.3 % 37-47 [facility] Hemoglobin measurementOrdere d By: Selina Beal on 08-05-2024 Hemoglobin (Bld) [Mass/Vol] 12.0 g/dL 12.0-15.0 [facility] Immature granulocytes/100 WB C Auto (Bld)Ordered By: Selina Beal on 08-05-2024 Immature granulocytes/100 WBC (Bld) 0.300 % 0.0-0.9 [facility] Comment on above: IG% - Immature Granu locytes (promyelocytes, myelocytes and metamyelocytes) > 1% indicates that a LEFT SHIFT is Present. Lymphocytes Auto (Unsp spec) [#/Vol]Ordered By: Selina Beal on 08-05-2024 Lymphocytes (Bld) [#/Vol] 3.10 10*3/uL 0.83-4.51 [facility] Lymphocytes/100 WBC Auto (Un sp spec)Ordered By: Selina Beal on 08-05-2024 Lymphocytes/100 WBC (Bld) 31.8 % 19-41 [facility] MCV (mean corpuscular volume ) determinationOrdered By: Selina Beal on 08-05-2024 MCV (RBC) [Entitic vol] 90.8 fL 81-99 [facility] Mean corpuscular hemoglobin (MCH) determinationOrdered By: Selina Beal on 08-05-2024 MCH (RBC) [Entitic mass] 29.2 pg 27.0-32.0 [facility] Mean corpuscular hemoglobin concentration (MCHC) determinationOrdered By: Selina Beal on 08-05-2024 MCHC (RBC) [Mass/Vol] 32.2 g/dL 32-36 [facility] Mean platelet volume determi nationOrdered By: Selina Beal on 08-05-2024 Platelet mean volume (Bld) [Entitic vol] 10.0 fL 6.2-12.0 [facility] Monocyte percentageOrdered B y: Selina Beal on 08-05-2024 Monocytes/100 WBC (Bld) 4.1 % 0-10 [facility] Neutrophil percentageOrdered By: Selina Beal on 08-05-2024 Neutrophils/100 WBC (Bld) 60.7 % 47-70 [facility] Nucleated red blood cell per centageOrdered By: Selina Beal on 08-05-2024 Nucleated RBC/100 WBC (Bld) [Ratio] 0 % 0-5 [facility] Platelet countOrdered By: Colby Beal on 08-05-2024 Platelets (Bld) [#/Vol] 328 10*3/uL 150-450 [facility] RBC Auto (Bld) [#/Vol]Ordere d By: Selina Beal on 08-05-2024 RBC (Bld) [#/Vol] 4.11 10*6/uL Low 4.2-5.4 [facility] White blood cell (WBC) count Ordered By: Selina Beal on 08-05-2024 WBC (Bld) [#/Vol] 9.7 10*3/uL 4.4-11.0 [facility] Transvaginal Non-on 07-27-2024 Transvaginal Non- [facility] Imaging Services [address] [place] [address] Transvaginal Non- MR#: [id number] Acct: [id number] Name: FRANCHESKA CROSS Rep #: [id number] : 1955 F 68 From: Jose Angel Hyman MD PCP: Dr. Janey Camp MD Status: DEP CLI Study: Transvaginal Non- Date of Exam: Exam# [id number] Ordering Dr: Selina Beal ADDENDUM by Dr. Jose Angel Hyman MD on 08/06/24 at 0928 Endometrial thickness is 3 mm. Reading Location: [facility] 08/06/24 0929 Date cc: Dr. Janey Camp MD; Dr. Selina Beal MD * Signed EXAM: US Pelvis Transvaginal CLINICAL INDICATION: AUB, POST D C TECHNIQUE: Real-time transvaginal pelvic ultrasound with image documentation. Transvaginal imaging was used for better evaluation of the endometrium and adnexa. COMPARISON: No relevant prior studies available. FINDINGS: UTERUS/CERVIX: Cervical fibroid measuring 4.6 x 4.0 x 3.8 cm. Normal endometrial stripe thickness. The uterus measures 7.7 x 5.3 x 3.7 cm. RIGHT OVARY: Right ovary not visualized. LEFT OVARY: Left ovary not visualized. FREE FLUID: No fluid. BLADDER: Empty bladder which cannot be evaluated with this probe. US/Transvaginal Non- IMPRESSION: Fibroid as above. Reading Location: [facility] CC: Dr. Janey Camp MD; Dr. Selina Beal MD County Manager: Signed Normal [facility] PAP IG HPV APTIMA 16/18,45on 07-24-2024 ADEQ Comment Normal . [facility] Comment on above: Order Comment: Speci men Comment: [id number] Comment: Source.............CervixSpecimen Comment: Other..............Post MenopausalSpecimen Comment: No. of containers..01 ThinPrep Vial Result Comment: Sati sfactory for evaluation. Endocervical and/or squamous metaplastic cells (endocervical component) are present. Performed By: #### L 7400.0280 ####[facility] [address] [place], [address] COMM . Normal . [facility] Comment on above: Order Comment: Speci men Comment: [id number] Comment: Source.............CervixSpecimen Comment: Other..............Post MenopausalSpecimen Comment: No. of containers..01 ThinPrep Vial Performed By: #### L 7400.0280 ####[facility] [address] [place], [address] COMMENT Comment Normal . [facility] Comment on above: Order Comment: Speci men Comment: [id number] Comment: Source.............CervixSpecimen Comment: Other..............Post MenopausalSpecimen Comment: No. of containers..01 ThinPrep Vial Result Comment: This liquid based ThinPrep(R) pap test was screened with the use of an image guided system. Performed By: #### L 7400.0280 ####[facility] [address] [place], [address] DIAG Comment Normal . [facility] Comment on above: Order Comment: Speci men Comment: [id number] Comment: Source.............CervixSpecimen Comment: Other..............Post MenopausalSpecimen Comment: No. of containers..01 ThinPrep Vial Result Comment: NEGA TIVE FOR INTRAEPITHELIAL LESION OR MALIGNANCY. CELLULAR CHANGES ASSOCIATED WITH ATROPHY ARE PRESENT. Performed By: #### L 7400.0280 ####[facility] [address] [place], [address] HPV APTIMA, HR Negative Normal Negative [facility] Comment on above: Order Comment: Speci men Comment: [id number] Comment: Source.............CervixSpecimen Comment: Other..............Post MenopausalSpecimen Comment: No. of containers..01 ThinPrep Vial Result Comment: This nucleic acid amplification test detects fourteen high- risk HPV types (16,18,31,33,35,39,45,51,52,56,58,59,66,68) without differentiation. Performed By: #### L 7400.0280 ####[facility] [address] [place], [address] HPV Cecilia Rfx Comment Normal . [facility] Comment on above: Order Comment: Speci men Comment: [id number] Comment: Source.............CervixSpecimen Comment: Other..............Post MenopausalSpecimen Comment: No. of containers..01 ThinPrep Vial Result Comment: Crit eria not met, HPV Genotype not performed. Performed at: - [facility] [id number] Cash Person: Amber Boles MD, Phone: [phone] Performed at: = - [facility] [id number] Cash Person: Amber Boles MD, Phone: [phone] Performed By: #### L 7400.0280 ####[facility] [address] [place], [address] PAPSMR Comment Normal . [facility] Comment on above: Order Comment: Speci men Comment: [id number] Comment: Source.............CervixSpecimen Comment: Other..............Post MenopausalSpecimen Comment: No. of containers..01 ThinPrep Vial Result Comment: The Pap smear is a screening test designed to aid in the detection of premalignant and malignant conditions of the uterine cervix. It is not a diagnostic procedure and should not be used as the sole means of detecting cervical cancer. Both false-positive and false-negative reports do occur. Performed By: #### L 7400.0280 ####[facility] [address] [place], [place], [address] PERFORM Comment Normal . [facility] Comment on above: Order Comment: Speci men Comment: [id number] Comment: Source.............CervixSpecimen Comment: Other..............Post MenopausalSpecimen Comment: No. of containers..01 ThinPrep Vial Result Comment: Bee Pierre, Animation Artist (ASCP) Performed By: #### L 7400.0280 ####[facility] [address] [place], [place], [address] Surgical pathology reportOrd ered By: Terri Dykes on 07-24-2024 Surgical pathology study [facility] Cervical or vaginal specimen microscopic examination by liquid based cytology (reportOrdered By: Selina Beal on 07-22-2024 Cytology report Cyto stain.thin prep Doc (Cvx/Vag) Comment . [facility] Comment on above: Criteria not met, HP V Genotype not performed.Performed at: - [address] [id number] Director: Amber Boles MD, Phone: [phone] at: =[facility] [id number] Director: Amber Boles MD, Phone: [phone] Cervical or vagninal specime n microscopic examination by cytology stain (reported asOrdered By: Selina Beal on 07-22-2024 Cytology report Cyto stain Doc (Cvx/Vag) Comment . [facility] Comment on above: The Pap smear is a s creening test designed to aid in thedetection of premalignant and malignant conditions of theuterine cervix. It is not a diagnostic procedure andshould not be used as the sole means of detecting cervicalcancer. Both false-positive and false-negative reports dooccur. Building Economist Cyto stain Nom (C vx/Vag) [ID]Ordered By: Selina Beal on 07-22-2024 Pap Smear Performed By Comment . [facility] Comment on above: Adrian frye, Animation Artist (ASCP) Cytology report Cyto stain D oc (Cvx/Vag)Ordered By: Selina Beal on 07-22-2024 Thin Prep Pap Smear Comment . [facility] Comment on above: The Pap smear is a s creening test designed to aid in thedetection of premalignant and malignant conditions of theuterine cervix. It is not a diagnostic procedure andshould not be used as the sole means of detecting cervicalcancer. Both false-positive and false-negative reports dooccur. Cytology report Cyto stain.t hin prep Doc (Cvx/Vag)Ordered By: Selina Beal on 07-22-2024 HPV Genotype Special Info Comment . [facility] Comment on above: Criteria not met, HP V Genotype not performed.Performed at: - [facility] [id number] Director: Amber Boles MD, Phone: [phone] at: = - [facility] [id number] Director: Amber Boles MD, Phone: [phone] Detection in cervical specim en of any of human papilloma virus (HPV) 16, 18, 31, 33,Ordered By: Selina Beal on 07-22-2024 HPV 16+18+31+33+35+39+45+51+ 52+56+58+59+66+68 DNA Probe+sig amp Ql (Cvx) Negative Negative [facility] Comment on above: This nucleic acid am plification test detects fourteen high-risk HPV types (16,18,31,33,35,39,45,51,52,56,58,59,66,68)without differentiation. HPV 16+18+31+33+35+39+45+51+ 52+56+58+59+66+68 DNA Probe+sig amp Ql (Cvx)Ordered By: Selina Beal on 07-22-2024 Human Papillomavirus High Risk Negative Negative [facility] Comment on above: This nucleic acid am plification test detects fourteen high-risk HPV types (16,18,31,33,35,39,45,51,52,56,58,59,66,68)without differentiation. Image-guided ThinPrep PapOrd ered By: Selina Beal on 07-22-2024 Pap Smear Note Comment . [facility] Comment on above: This liquid based Th inPrep(R) pap test was screened withthe use of an image guided system. Image-guided liquid-based Pa pOrdered By: Selina Beal on 07-22-2024 Pap Smear Diagnosis Comment . [facility] Comment on above: NEGATIVE FOR INTRAEP ITHELIAL LESION OR MALIGNANCY.CELLULAR CHANGES ASSOCIATED WITH ATROPHY ARE PRESENT. Laboratory - CytologyOrdered By: Selina Beal on 07-22-2024 Building Economist Cyto stain Nom (Cvx/Vag) [ID] Comment . [facility] Comment on above: Adrian Byrd-Ab frye, Animation Artist (ASCP) Laboratory - Miscellaneous t estsOrdered By: Selina Beal on 07-22-2024 Service comment (Unsp spec) [Interp] . . [facility] No Panel InformationOrdered By: Selina Beal on 07-22-2024 Pap Smear Specimen Adequacy Comment . [facility] Comment on above: Satisfactory for bridger luation. Endocervical and/or squamous metaplasticcells (endocervical component) are present. User Acceptance Tester Office Visit Reporton 07-22-2024 User Acceptance Tester Office Visit Report [facility] [address], [address] [place] [address] OFFICE VISIT Date of Service: 07/22/24 MR#: [id number] Acct: [id number] Name: FRANCHESKA CROSS Rep #: [id number] : 1955 Provider: Dr. Selina pathak MD Age/Sex: 68/F [place] [facility] [place]: Signed Intake Vital Signs 02/19/24 10:53 07/22/24 10:23 Height 5 ft 6 in 5 ft 6 in Weight: 197 lb 8 oz BMI 31.8 BP 133/84 H Intake Visit Reasons: Follow up D C, bleeding again Online [employer] F[employer] Coach Required: No Allergies hydrocodone (From Vicodin) Allergy (Unknown, Verified 02/19/24 10:49) Unknown Medications ???Medication ???Instructions ???Recorded ???Confirmed ???Type aspirin 81 mg tablet,delayed 81 mg PO QDAY 05/15/17 07/22/24 Hi story release (Adult Low Dose Aspirin) calcium 600 mg (as 1 cap PO ONCE 05/15/17 07/22/24 Hi story carbonate)-vitamin D3 5 mcg (200 unit) capsule lisinopril 20 2 tab PO DAILY 09/28/23 07/22/24 H istory mg-hydrochlorothiazide 12.5 mg tablet metformin 500 mg tablet 500 mg PO BID #60 tabs 09/28/23 Rx amlodipine 5 mg tablet 5 mg PO QHS 01/22/24 07/22/24 Hist ory atorvastatin 10 mg tablet 10 mg PO QHS 01/22/24 07/22/24 His tory turmeric 400 mg capsule 400 mg PO DAILY 01/22/24 07/22/24 History antiarthritic combination no.2 900 1,500 mg PO DAILY 01/24/2407/22 History mg tablet (glucosamine-chondroit in) cholecalciferol (vitamin D3) 125 125 mcg PO QDAY 01/24/24 07/22/24 History mcg (5,000 unit) capsule megestrol 40 mg tablet 40 mg PO DAILY #30 tabs 02/19/24 0 07/22/24 Rx Is last menstrual period known: No Post menopausal: Yes Patient : No : No PFSH Medical History (Updated 07/22/24 @ 11:[address] Selina Beal MD) Wears glasses Diabetes Ambulates with cane High cholesterol Non-smoker Incisional hernia of anterior abdominal wall without obstruction or gangrene Arthritis Heart murmur Surgical History (Updated 07/22/24 @ 10:29 by Yen Cho) H/O total knee replacement Status post hysteroscopic polypectomy History of incisional hernia repair Dislocation, shoulder closed S/P appendectomy S/P cholecystectomy Family History Mother Hypertension Father Diabetes Son Seizures Social History number of children: 6 Smoking Status: Never smoker second hand exposure: No alcohol intake: never substance use type: does not use caffeine: No what type of physical activity do you participate in: none frequency: does not exercise seatbelt use: always additional social history: Sanchez HPI Follow up D C, bleeding again Details: FRANCHESKA CROSS is a 68 year old who presents for postmenopausal bleeding. she had a d and c in february that showed hyperplasia, she has been on megace since. she has had an increase in bleeding since the weekend. she has been feeling good no cramping. she has gone through two diapers a day two days over the weekend and now is only spotting. History Past Pregnancies Del. Date Name GA/Weeks Outcome Route Bth Weight Gen Labor Lgth Anesthesia Del Locatn Provider FOB Unknown Alex Unknown Kyle Unknown Hever Unknown Huang Unknown Syd Unknown Liliana ROS Const Constitutional: Denies fatigue, fever(s), headache(s), increased appetite, poor appetite, weight gain or weight loss Cardio Card: Denies chest pain Resp Resp: Denies cough or dyspnea GI GI: Reports as per HPI; Denies abdominal pain, constipation, nausea or vomiting : Reports as per HPI; Denies difficulty voiding, dysuria, nipple discharge, urinary frequency, urinary incontinence, urinary hesitancy, urinary urgency, vaginal discharge, vaginal dryness, vaginal odor or vaginal pruritus Skin Skin/Breast: Denies change in hair, breast mass, breast pain, breast skin changes or nipple discharge Exam Const General: cooperative, healthy appearing, comfortable, no acute distress and well developed Nutritional Appearance: average body habitus Orientation: alert HENMT Head: normal to inspection and normocephalic Neck Neck: normal visual inspection and trachea midline Thyroid: thyroid normal Resp Effort Inspection: normal respiratory effort GI Inspection: normal to inspection and non-distended Palpation: soft and no hepatosplenomegaly General: bladder normal to palpation External Female Exam: normal external appearance and normal appearance of the urethra Urethra: normal appearance of the urethra, normal palpation and no discharge Speculum Exam - Vagina: normal appearance of the vagina and normal vaginal discharge Speculum Exam - Cervix: normal appearance (more content not included)... Normal [facility] Service comment (Unsp spec) [Interp]Ordered By: Selina Beal on 07-22-2024 Pap Smear Comment (3) . . [facility] Surgery Specimen Level Sandi 07-22-2024 Surgery Specimen Level IV ---- Patient Age/Sex Location Account Attending Physician ---- FRANCHESKA CROSS 68/F LABSPEC [id number] Dr. Selina Beal MD ---- Specimen: [id number] Received: 07/22/24 Status: MARISA Cisneros Num: [id number] Spec Type: ENDOM BX/C Subm Dr: Dr. Selina Bael MD HEADER OPERATION: Endometrial biopsy PRE-OP DIAGNOSIS: Simple hyperplasia without atypia TISSUE SUBMITTED: A- Endometrial tissue ---- MICROSCOPIC DIAGNOSIS A. Endometrium, biopsy: * Inactive endometrium with progestin effect. MICROSCOPIC DESCRIPTION Slides are reviewed. GROSS DESCRIPTION A. Received in fixative is one container labeled with the patient's name and designated Endometrial tissue. The specimen consists of multiple fragments of brown tissue that measure 2.5 x 2 x 0.2 cm in aggregate. The specimen is totally submitted in one cassette. 07/22/2024 CPT:23950 ---- Patient Age/Sex Location Account Attending Physician ---- FRANCHESKA CROSS 68/F LABSPEC [id number] Dr. Selina Beal MD ---- Signed (signature on file) Dr. Terri Dykes MD 07/24/24 1644 ---- Normal [facility] Comment on above: Performed By: #### L 501.4405, L500.4100, L501.4100 #### [facility] [address] [place], [place], [address] Decalcification bone/plaqueo n 05-18-2024 Decalcification bone/plaque ---- Patient Age/Sex Location Account Attending Physician ---- FRANCHESKA CROSS 68/F LABSPEC [id number] Dr. Emerson Miranda MD ---- Specimen: [id number] Received: 05/18/24 Status: MARISA Cisneros Num: [id number] Spec Type: TOTAL KNEE Subm Dr: Dr. Emerson Miranda MD HEADER OPERATION: Right total knee arthroplasty PRE-OP DIAGNOSIS: Primary osteoarthritis right knee TISSUE SUBMITTED: Right knee bone ---- MICROSCOPIC DIAGNOSIS Bone and soft tissue, right knee, total knee replacement/resection: Pieces of bone with degenerative osteoarthritic changes. Fragments of dense fibroconnective tissue and synovial tissue. SJ: 05/22/2024 MICROSCOPIC DESCRIPTION Slides are reviewed. GROSS DESCRIPTION Received is one container designated bone and soft tissue right knee. The specimen consists of multiple fragments of esparza-yellow bone measuring in aggregate 13.0 x 11.0 x 3.5 cm. Also in the specimen container are multiple fragments of yellow-white soft tissue measuring in aggregate 6.0 x 5.0 x 1.5 cm. A number of bony fragments contain articular surfaces consistent with tibial plateau and femoral condyle and displaying prominent osteophyte formation, eburnation and bone erosion. Unemployment Specialist sections are submitted in two cassettes as follows: 1 - soft tissue, 2 - bone after decalcification. / GWEN. 05/19/2024 TC:5 CPT: 53273, 64295 ---- Patient Age/Sex Location Account Attending Physician ---- FRANCHESKA CROSS 68/F LABSPEC [id number] Dr. Emerson Miranda MD ---- Signed (signature on file) Dr. José Miguel Lujan MD 05/22/24 1446 ---- Normal [facility] Comment on above: Performed By: #### L 501.4405, L500.4100, L501.4100 #### [facility] [address] [place], [address] 12 Lead EKGon 05-12-2024 12 Lead EKG [facility] Cardiovascular Services [address] [place] [address] 12 Lead EKG 05/12/24 0957 MR#: [id number] Acct: [id number] Name: FRANCHESKA CROSS Rep #: [id number] : 1955 68 From: Marcelo Vizcaino MD Attending Dr: Dr. Emerson Miranda MD Status: REG CLI Ordering Dr: Emerson Miranda MD Date: 05/12/24 Location: PSN Sex: F C Admitted: Test Reason : PRE OP Blood Pressure : */* mmHG Vent. Rate : 85 BPM Atrial Rate : 85 BPM P-R Int : 158 ms QRS Dur : 88 ms QT Int : 378 ms P-R-T Axes : 52 33 86 degrees QTcB Int : 449 ms Normal sinus rhythm with sinus arrhythmia Nonspecific ST and T wave abnormality Abnormal ECG Confirmed by Marcelo Vizcaino ([id number]), publications editor HANNA GARZA ([id number]) on 05/12/2024 1:19:27 PM Referred By: Emerson Miranda Confirmed By: Marcelo Vizcaino 05/12/24 1319 Date Marcelo Vizcaino MD CC: Dr. Janey Camp MD; Dr. Emerson Miranda MD Signed Normal [facility] Absolute neutrophil countOrd ered By: Emerson Miranda on 04-21-2024 Neutrophils (Bld) [#/Vol] 6.3 10*3/uL 2.0-7.7 [facility] Albumin, Serumon 04-21-2024 Albumin [Mass/Vol] 3.4 g/dL Normal 3.2-5.0 [facility] Comment on above: Performed By: #### L 501.4405, L500.4100, L501.4100 #### [facility] [address] [place], [address] Basic Metabolic Profile (BMP )on 04-21-2024 BUN/CRE 20.4 RATIO High 10-20 [facility] Comment on above: Performed By: #### L 501.4405, L500.4100, L501.4100 #### [facility] [address] [place], [address] CA,Total 9.2 mg/dL Normal 8.5-10.1 [facility] Comment on above: Performed By: #### L 501.4405, L500.4100, L501.4100 #### [facility] [address] [place], [address] Chloride [Moles/Vol] 110 mmol/L High 98-107 [facility] Comment on above: Performed By: #### L 501.4405, L500.4100, L501.4100 #### [facility] [address] [place], [address] CO2 [Moles/Vol] 26.0 mmol/L Normal 21.0-32.0 [facility] Comment on above: Performed By: #### L 501.4405, L500.4100, L501.4100 #### [facility] [address] [place], [address] Creatinine [Mass/Vol] 1.13 mg/dL High 0.55-1.02 [facility] Comment on above: Result Comment: The validity of the calculated GFR GFRAA in patients over 70 years has not been determined. Clinical correlation is essential. Performed By: #### L 501.4405, L500.4100, L501.4100 #### [facility] [address] [place], [address] EST GFR - AA 61 mL/min Normal >60 [facility] Comment on above: Result Comment: Afri can Brazilian GFR Calc Performed By: #### L 501.4405, L500.4100, L501.4100 #### [facility] [address] [place], [address] GAP 5 Normal 5-15 [facility] Comment on above: Performed By: #### L 501.4405, L500.4100, L501.4100 #### [facility] [address] [place], [address] GFR/1.73 sq M.predicted among non-blacks MDRD (S/P/Bld) [Vol rate/Area] 51 mL/min/{1.73_m2} Low >60 [facility] Comment on above: Result Comment: Non- GFR Calc Performed By: #### L 501.4405, L500.4100, L501.4100 #### [facility] [address] [place], [address] Glucose [Mass/Vol] 103 mg/dL Normal 74-106 [facility] Comment on above: Result Comment: Fast ing Glucose result from 100 to 125 mg/dL suggests IMPAIRED HOMEOSTASIS per A.D.A. criteria. Performed By: #### L 501.4405, L500.4100, L501.4100 #### [facility] [address] [place], [address] Potassium [Moles/Vol] 3.5 mmol/L Normal 3.5-5.1 [facility] Comment on above: Performed By: #### L 501.4405, L500.4100, L501.4100 #### [facility] [address] [place], [address] Sodium [Moles/Vol] 142 mmol/L Normal 136-145 [facility] Comment on above: Performed By: #### L 501.4405, L500.4100, L501.4100 #### [facility] [address] [place], [address] Urea nitrogen [Mass/Vol] 23 mg/dL High - [facility] Comment on above: Performed By: #### L 501.4405, L500.4100, L501.4100 #### [facility] [address] [place], [address] Basophil percentageOrdered B y: Emerson Miranda on 04-21-2024 Basophils/100 WBC (Bld) 0.5 % 0-1 [facility] Blood urea nitrogen (BUN)/cr eatinine ratioOrdered By: Emerson Miranda on 04-21-2024 Urea nitrogen/Creatinine [Mass ratio] 20.4 mg/mg High 10-20 [facility] CBC W/Diff, Automatedon 12- Absolute Lymph 3.68 X10 3/uL Normal 0.83-4.51 [facility] Comment on above: Performed By: #### L 501.4405, L500.4100, L501.4100 #### [facility] [address] [place], [address] Absolute Neut 6.3 X10 3/uL Normal 2.0-7.7 [facility] Comment on above: Performed By: #### L 501.4405, L500.4100, L501.4100 #### [facility] [address] [place], [address] Basophils/100 WBC (Bld) 0.5 % Normal 0-1 [facility] Comment on above: Performed By: #### L 501.4405, L500.4100, L501.4100 #### [facility] [address] [place], [address] Eosinophils/100 WBC (Bld) 2.8 % Normal 0-5 [facility] Comment on above: Performed By: #### L 501.4405, L500.4100, L501.4100 #### [facility] [address] [place], [address] Erythrocyte distribution width (RBC) [Ratio] 14.0 % Normal 11.6-14.6 [facility] Comment on above: Performed By: #### L 501.4405, L500.4100, L501.4100 #### [facility] [address] [place], [address] Hematocrit (Bld) [Volume fraction] 39.8 % Normal 37-47 [facility] Comment on above: Performed By: #### L 501.4405, L500.4100, L501.4100 #### [facility] [address] [place], [address] Hemoglobin (Bld) [Mass/Vol] 12.7 g/dL Normal 12.0-15.0 [facility] Comment on above: Performed By: #### L 501.4405, L500.4100, L501.4100 #### [facility] [address] [place], [address] IG% 0.400 Normal 0.0-0.9 [facility] Comment on above: Result Comment: IG% - Immature Granulocytes (promyelocytes, myelocytes and metamyelocytes) > 1% indicates that a LEFT SHIFT is Present. Performed By: #### L 501.4405, L500.4100, L501.4100 #### [facility] [address] [place], [address] Lymphocytes/100 WBC (Bld) 33.2 % Normal 19-41 [facility] Comment on above: Performed By: #### L 501.4405, L500.4100, L501.4100 #### [facility] [address] [place], [address] MCH (RBC) [Entitic mass] 28.6 pg Normal 27.0-32.0 [facility] Comment on above: Performed By: #### L 501.4405, L500.4100, L501.4100 #### [facility] [address] [place], [address] MCHC (RBC) [Mass/Vol] 31.9 g/dL Low 32-36 [facility] Comment on above: Performed By: #### L 501.4405, L500.4100, L501.4100 #### [facility] [address] [place], [address] MCV (RBC) [Entitic vol] 89.6 fL Normal 81-99 [facility] Comment on above: Performed By: #### L 501.4405, L500.4100, L501.4100 #### [facility] [address] [place], [address] Monocytes/100 WBC (Bld) 6.7 % Normal 0-10 [facility] Comment on above: Performed By: #### L 501.4405, L500.4100, L501.4100 #### [facility] [address] [place], [address] Neutrophils/100 WBC (Bld) 56.4 % Normal 47-70 [facility] Comment on above: Performed By: #### L 501.4405, L500.4100, L501.4100 #### [facility] [address] [place], [address] Nucleated RBC (Bld) [#/Vol] 0 10*3/uL Normal 0-5 [facility] Comment on above: Performed By: #### L 501.4405, L500.4100, L501.4100 #### [facility] [address] [place], [address] Platelet mean volume (Bld) [Entitic vol] 9.6 fL Normal 6.2-12.0 [facility] Comment on above: Performed By: #### L 501.4405, L500.4100, L501.4100 #### [facility] [address] [place], [address] Platelets (Bld) [#/Vol] 324 10*3/uL Normal 150-450 [facility] Comment on above: Performed By: #### L 501.4405, L500.4100, L501.4100 #### [facility] [address] [place], [address] RBC (Bld) [#/Vol] 4.44 10*6/uL Normal 4.2-5.4 [facility] Comment on above: Performed By: #### L 501.4405, L500.4100, L501.4100 #### [facility] [address] [place], [address] RDW SD 45.7 fl High 35.1-43.9 [facility] Comment on above: Performed By: #### L 501.4405, L500.4100, L501.4100 #### [facility] [address] [place], [address] WBC (Bld) [#/Vol] 11.1 10*3/uL High 4.4-11.0 [facility] Comment on above: Performed By: #### L 501.4405, L500.4100, L501.4100 #### [facility] [address] [place], [address] Carbon dioxide measurementOr dered By: Emerson Miranda on 04-21-2024 CO2 [Moles/Vol] 26.0 mmol/L 21.0-32.0 [facility] Chest PA and Lateralon 04-21 Chest PA and Lateral [facility] Imaging Services [address] [place] [address] Chest PA and Lateral MR#: [id number] Acct: [id number] Name: FRANCHESKA CROSS Rep #: [id number] : 1955 F 68 From: Joshua [place] MD PCP: Dr. Janey Camp MD Status: REG CL Study: Chest PA and Lateral Date of Exam: 04/21/24 Exam# [id number] Ordering Dr: Emerson Miranda MD [id number] STUDY: X-RAY CHEST REASON FOR EXAM: Female, 68 years old. PREOP TECHNIQUE: PA and lateral views of the chest. COMPARISON: 09/28/2023 FINDINGS: The lungs are clear and expanded. There is no demonstrated pleural abnormality. Normal size heart. Normal mediastinum and rosalina. Normal visualized pulmonary arteries. Normal visualized aortic arch and descending thoracic aorta. Normal visualized thoracic spine. Normal visualized ribs, clavicles, and shoulders. There is no demonstrated abnormality of the visualized soft tissue structures of the upper abdomen. RAD/Chest PA and Lateral IMPRESSION: Normal x-ray examination of the chest. Electronically Signed: Joshua Warren MD at 11:56 EST , CC: Dr. Janey Camp MD; Dr. Emerson Miranda MD County Manager: Signed Normal [facility] Chloride measurementOrdered By: Emerson Miranda on 04-21-2024 Chloride [Moles/Vol] 110 mmol/L High 98-107 [facility] Eosinophil percentageOrdered By: Emerson Miranda on 04-21-2024 Eosinophils/100 WBC (Bld) 2.8 % 0-5 [facility] Erythrocyte distribution wid th ratioOrdered By: Emerson Miranda on 04-21-2024 Erythrocyte distribution width (RBC) [Ratio] 14.0 % 11.6-14.6 [facility] Erythrocyte distribution wid th standard deviationOrdered By: Emerson Miranda on 04-21-2024 Erythrocyte distribution width (RBC) [Entitic vol] 45.7 fL High 35.1-43.9 [facility] Estimated glomerular filtrat ion rate (GFR) AmericanOrdered By: Emerson Miranda on 04-21-2024 Estimated GFR (MDRD) Amer 61 mL/min >60 [facility] Comment on above: GFR Calc Glomerular filtration rate ( GFR) estimationOrdered By: Emerson Miranda on 04-21-2024 Estimated GFR (MDRD) Non-Af Amer 51 mL/min Low >60 [facility] Comment on above: Non- GFR Calc Glucose measurementOrdered B y: Emerson Miranda on 04-21-2024 Glucose [Mass/Vol] 103 mg/dL 74-106 [facility] Comment on above: Fasting Glucose resu lt from 100 to 125 mg/dL suggests IMPAIRED HOMEOSTASIS per A.D.A. criteria. Hematocrit Auto (Bld) [Volum e fraction]Ordered By: Emerson Miranda on 04-21-2024 Hematocrit (Bld) [Volume fraction] 39.8 % 37-47 [facility] Hemoglobin A1con 04-21-2024 HbA1c (Bld) [Mass fraction] 6.9 % High 3.8-5.6 [facility] Comment on above: Result Comment: Norm al < 5.7 % Prediabetic 5.7 - 6.4 % Diabetic >or= 6.5 % Please note range changes. Performed By: #### L 501.4405, L500.4100, L501.4100 #### [facility] [address] [place], [place], [id number] Hemoglobin A1c percentageOrd ered By: Emerson Miranda on 04-21-2024 HbA1c (Bld) [Mass fraction] 6.9 % High 3.8-5.6 [facility] Comment on above: Normal < 5.7 % Predi abetic 5.7 - 6.4 % Diabetic >or= 6.5 % Please note range changes. Hemoglobin measurementOrdere d By: Emerson Miranda on 04-21-2024 Hemoglobin (Bld) [Mass/Vol] 12.7 g/dL 12.0-15.0 [facility] Immature granulocytes/100 WB C Auto (Bld)Ordered By: Emerson Miranda on 04-21-2024 Immature granulocytes/100 WBC (Bld) 0.400 % 0.0-0.9 [facility] Comment on above: IG% - Immature Granu locytes (promyelocytes, myelocytes and metamyelocytes) > 1% indicates that a LEFT SHIFT is Present. Lymphocytes Auto (Unsp spec) [#/Vol]Ordered By: Emerson Miranda on 04-21-2024 Lymphocytes (Bld) [#/Vol] 3.68 10*3/uL 0.83-4.51 [facility] Lymphocytes/100 WBC Auto (Un sp spec)Ordered By: Emerson Miranda on 04-21-2024 Lymphocytes/100 WBC (Bld) 33.2 % 19-41 [facility] MCV (mean corpuscular volume ) determinationOrdered By: Emerson Miranda on 04-21-2024 MCV (RBC) [Entitic vol] 89.6 fL 81-99 [facility] Mean corpuscular hemoglobin (MCH) determinationOrdered By: Emerson Miranda on 04-21-2024 MCH (RBC) [Entitic mass] 28.6 pg 27.0-32.0 [facility] Mean corpuscular hemoglobin concentration (MCHC) determinationOrdered By: Emerson Miranda on 04-21-2024 MCHC (RBC) [Mass/Vol] 31.9 g/dL Low 32-36 [facility] Mean platelet volume determi nationOrdered By: Emerson Miranda on 04-21-2024 Platelet mean volume (Bld) [Entitic vol] 9.6 fL 6.2-12.0 [facility] Monocyte percentageOrdered B y: Emerson Miranda on 04-21-2024 Monocytes/100 WBC (Bld) 6.7 % 0-10 [facility] Neutrophil percentageOrdered By: Emerson Miranda on 04-21-2024 Neutrophils/100 WBC (Bld) 56.4 % 47-70 [facility] Nucleated red blood cell per centageOrdered By: Emerson Miranda on 04-21-2024 Nucleated RBC/100 WBC (Bld) [Ratio] 0 % 0-5 [facility] Platelet countOrdered By: Samaria Miranda on 04-21-2024 Platelets (Bld) [#/Vol] 324 10*3/uL 150-450 [facility] Potassium measurementOrdered By: Emerson Miranda on 04-21-2024 Potassium [Moles/Vol] 3.5 mmol/L 3.5-5.1 [facility] RBC Auto (Bld) [#/Vol]Ordere d By: Emerson Miranda on 04-21-2024 RBC (Bld) [#/Vol] 4.44 10*6/uL 4.2-5.4 [facility] Serum anion gap measurementO rdered By: Emerson Miranda on 04-21-2024 Anion gap [Moles/Vol] 5 mmol/L 5-15 [facility] Serum or plasma albumin martin urement (mass/volume)Ordered By: Emerson Miranda on 04-21-2024 Albumin [Mass/Vol] 3.4 g/dL 3.2-5.0 [facility] Serum or plasma calcium martin urement (mass/volume)Ordered By: Emerson Miranda on 04-21-2024 Calcium [Mass/Vol] 9.2 mg/dL 8.5-10.1 [facility] Serum or plasma creatinine m easurement (mass/volume)Ordered By: Emerson Miranda on 04-21-2024 Creatinine [Mass/Vol] 1.13 mg/dL High 0.55-1.02 [facility] Comment on above: The validity of the calculated GFR & GFRAA in patients over 70 years has not been determined. Clinical correlation is essential. Serum or plasma urea nitroge n measurement (mass/volume)Ordered By: Emerson Miranda on 04-21-2024 Urea nitrogen [Mass/Vol] 23 mg/dL High 7-18 [facility] Sodium levelOrdered By: Alison Miranda on 04-21-2024 Sodium [Moles/Vol] 142 mmol/L 136-145 [facility] White blood cell (WBC) count Ordered By: Emerson Miranda on 04-21-2024 WBC (Bld) [#/Vol] 11.1 10*3/uL High 4.4-11.0 [facility] Extremity Lower without Cont raon 03-31-2024 Extremity Lower without Contra [facility] Imaging Services [address] [place] [address] Extremity Lower without Contra MR#: [id number] Acct: [id number] Name: FRANCHESKA CROSS Rep #: [id number] : 1955 F 68 From: Gordon Nicole MD PCP: Dr. Janey Camp MD Status: REG CLI Study: Extremity Lower without Contra Date of Exam: 05/31/23 Exam# [id number] Ordering Dr: Emerson Miranda MD [id number] EXAM: CT RIGHT LOWER EXTREMITY WITHOUT INTRAVENOUS CONTRAST CLINICAL INDICATION: RT KNEE OA TECHNIQUE: Helically acquired images were obtained of the right lower extremity without intravenous contrast. 2-D reformats were performed by the technologist. CTDIvol = ( 18.76 ) mGy, DLP = ( 1374.55 ) mGycm This CT exam was performed using one or more of the following dose reduction techniques: automated exposure control, adjustment of the mA and/or kV according to patient size, and/or use of iterative reconstruction technique. COMPARISON: July 22, 2023. FINDINGS: Severe degenerative changes at the knee, worse at the medial femorotibial compartment. Up to moderate polyarticular degenerative changes involving the ankle and foot. Mild to moderate right hip osteoarthrosis. Fibroid uterus incidentally noted. Distal colonic diverticulosis without acute diverticulitis. No soft tissue masses. CT/Extremity Lower without Contra IMPRESSION: Preoperative planning study showing severe tricompartmental osteoarthritis of the knee. Electronically Signed: Gordon Nicole MD at 19:01 EST , CC: Dr. Janey Camp MD; Dr. Emerson Miranda MD County Manager: Signed Normal [facility] CBC W/Diff, Automatedon 11-0 Absolute Lymph 3.61 X10 3/uL Normal 0.83-4.51 [facility] Comment on above: Performed By: #### L 500.4050, L500.4100, L501.9520, L100.0100, L501.0900, L501.9985 ####[facility] [address] [place], [address] Absolute Neut 5.5 X10 3/uL Normal 2.0-7.7 [facility] Comment on above: Performed By: #### L 500.4050, L500.4100, L501.9520, L100.0100, L501.0900, L501.9985 ####[facility] [address] [place], [address] Basophils/100 WBC (Bld) 0.7 % Normal 0-1 [facility] Comment on above: Performed By: #### L 500.4050, L500.4100, L501.9520, L100.0100, L501.0900, L501.9985 ####[facility] [address] [place], [address] Eosinophils/100 WBC (Bld) 2.1 % Normal 0-5 [facility] Comment on above: Performed By: #### L 500.4050, L500.4100, L501.9520, L100.0100, L501.0900, L501.9985 ####[facility] [address] [place], [address] Erythrocyte distribution width (RBC) [Ratio] 13.5 % Normal 11.6-14.6 [facility] Comment on above: Performed By: #### L 500.4050, L500.4100, L501.9520, L100.0100, L501.0900, L501.9985 ####[facility] [address] [place], [address] Hematocrit (Bld) [Volume fraction] 39.7 % Normal 37-47 [facility] Comment on above: Performed By: #### L 500.4050, L500.4100, L501.9520, L100.0100, L501.0900, L501.9985 ####[facility] [address] [place], [address] Hemoglobin (Bld) [Mass/Vol] 13.1 g/dL Normal 12.0-15.0 [facility] Comment on above: Performed By: #### L 500.4050, L500.4100, L501.9520, L100.0100, L501.0900, L501.9985 ####[facility] [address] [place], [address] IG% 0.400 Normal 0.0-0.9 [facility] Comment on above: Result Comment: IG% - Immature Granulocytes (promyelocytes, myelocytes and metamyelocytes) > 1% indicates that a LEFT SHIFT is Present. Performed By: #### L 500.4050, L500.4100, L501.9520, L100.0100, L501.0900, L501.9985 ####[facility] [address] [place], [address] Lymphocytes/100 WBC (Bld) 36.4 % Normal 19-41 [facility] Comment on above: Performed By: #### L 500.4050, L500.4100, L501.9520, L100.0100, L501.0900, L501.9985 ####[facility] [address] [place], [address] MCH (RBC) [Entitic mass] 29.3 pg Normal 27.0-32.0 [facility] Comment on above: Performed By: #### L 500.4050, L500.4100, L501.9520, L100.0100, L501.0900, L501.9985 ####[facility] [address] [place], [address] MCHC (RBC) [Mass/Vol] 33.0 g/dL Normal 32-36 [facility] Comment on above: Performed By: #### L 500.4050, L500.4100, L501.9520, L100.0100, L501.0900, L501.9985 ####[facility] [address] [place], [address] MCV (RBC) [Entitic vol] 88.8 fL Normal 81-99 [facility] Comment on above: Performed By: #### L 500.4050, L500.4100, L501.9520, L100.0100, L501.0900, L501.9985 ####[facility] [address] [place], [address] Monocytes/100 WBC (Bld) 5.4 % Normal 0-10 [facility] Comment on above: Performed By: #### L 500.4050, L500.4100, L501.9520, L100.0100, L501.0900, L501.9985 ####[facility] [address] [place], [address] Neutrophils/100 WBC (Bld) 55.0 % Normal 47-70 [facility] Comment on above: Performed By: #### L 500.4050, L500.4100, L501.9520, L100.0100, L501.0900, L501.9985 ####[facility] [address] [place], [address] Nucleated RBC (Bld) [#/Vol] 0 10*3/uL Normal 0-5 [facility] Comment on above: Performed By: #### L 500.4050, L500.4100, L501.9520, L100.0100, L501.0900, L501.9985 ####[facility] [address] [place], [address] Platelet mean volume (Bld) [Entitic vol] 9.7 fL Normal 6.2-12.0 [facility] Comment on above: Performed By: #### L 500.4050, L500.4100, L501.9520, L100.0100, L501.0900, L501.9985 ####[facility] [address] [place], [address] Platelets (Bld) [#/Vol] 374 10*3/uL Normal 150-450 [facility] Comment on above: Performed By: #### L 500.4050, L500.4100, L501.9520, L100.0100, L501.0900, L501.9985 ####[facility] [address] [place], [address] RBC (Bld) [#/Vol] 4.47 10*6/uL Normal 4.2-5.4 [facility] Comment on above: Performed By: #### L 500.4050, L500.4100, L501.9520, L100.0100, L501.0900, L501.9985 ####[facility] [address] [place], [address] RDW SD 43.8 fl Normal 35.1-43.9 [facility] Comment on above: Performed By: #### L 500.4050, L500.4100, L501.9520, L100.0100, L501.0900, L501.9985 ####[facility] [address] [place], [address] WBC (Bld) [#/Vol] 9.9 10*3/uL Normal 4.4-11.0 [facility] Comment on above: Performed By: #### L 500.4050, L500.4100, L501.9520, L100.0100, L501.0900, L501.9985 ####[facility] [address] [place], [address] Comprehensive Metabolic Prof maon 03-13-2024 Albumin [Mass/Vol] 3.6 g/dL Normal 3.2-5.0 [facility] Comment on above: Performed By: #### L 500.4050, L500.4100, L501.9520, L100.0100, L501.0900, L501.9985 ####[facility] [address] [place], [address] Albumin/Globulin [Mass ratio] 1.1 {ratio} Normal 0.9-2.4 [facility] Comment on above: Performed By: #### L 500.4050, L500.4100, L501.9520, L100.0100, L501.0900, L501.9985 ####[facility] [address] [place], [address] ALK P 44 U/L Low 45-117 [facility] Comment on above: Performed By: #### L 500.4050, L500.4100, L501.9520, L100.0100, L501.0900, L501.9985 ####[facility] [address] [place], [address] ALT [Catalytic activity/Vol] 15 U/L Normal 13-56 [facility] Comment on above: Performed By: #### L 500.4050, L500.4100, L501.9520, L100.0100, L501.0900, L501.9985 ####[facility] [address] [place], [address] AST [Catalytic activity/Vol] 9 U/L Low 15-37 [facility] Comment on above: Performed By: #### L 500.4050, L500.4100, L501.9520, L100.0100, L501.0900, L501.9985 ####[facility] [address] [place], [address] Bilirubin [Mass/Vol] 0.60 mg/dL Normal 0.20-1.00 [facility] Comment on above: Result Comment: For patients on eltrombopag therapy, use of Dimension [place] TBIL is not recommended. Performed By: #### L 500.4050, L500.4100, L501.9520, L100.0100, L501.0900, L501.9985 ####[facility] [address] [place], [address] BUN/CRE 21.4 RATIO High 10-20 [facility] Comment on above: Performed By: #### L 500.4050, L500.4100, L501.9520, L100.0100, L501.0900, L501.9985 ####[facility] [address] [place], [address] CA,Total 9.1 mg/dL Normal 8.5-10.1 [facility] Comment on above: Performed By: #### L 500.4050, L500.4100, L501.9520, L100.0100, L501.0900, L501.9985 ####[facility] [address] [place], [address] Chloride [Moles/Vol] 108 mmol/L High 98-107 [facility] Comment on above: Performed By: #### L 500.4050, L500.4100, L501.9520, L100.0100, L501.0900, L501.9985 ####[facility] [address] [place], [address] CO2 [Moles/Vol] 27.0 mmol/L Normal 21.0-32.0 [facility] Comment on above: Performed By: #### L 500.4050, L500.4100, L501.9520, L100.0100, L501.0900, L501.9985 ####[facility] [address] [place], [address] Creatinine [Mass/Vol] 0.98 mg/dL Normal 0.55-1.02 [facility] Comment on above: Result Comment: The validity of the calculated GFR GFRAA in patients over 70 years has not been determined. Clinical correlation is essential. Performed By: #### L 500.4050, L500.4100, L501.9520, L100.0100, L501.0900, L501.9985 ####[facility] [address] [place], [address] EST GFR - AA 72 mL/min Normal >60 [facility] Comment on above: Result Comment: Afri can Brazilian GFR Calc Performed By: #### L 500.4050, L500.4100, L501.9520, L100.0100, L501.0900, L501.9985 ####[facility] [address] [place], [address] GAP 5 Normal 5-15 [facility] Comment on above: Performed By: #### L 500.4050, L500.4100, L501.9520, L100.0100, L501.0900, L501.9985 ####[facility] [address] [place], [address] GFR/1.73 sq M.predicted among non-blacks MDRD (S/P/Bld) [Vol rate/Area] 60 mL/min/{1.73_m2} Normal >60 [facility] Comment on above: Result Comment: Non- GFR Calc Performed By: #### L 500.4050, L500.4100, L501.9520, L100.0100, L501.0900, L501.9985 ####[facility] [address] [place], [address] Globulin (S) [Mass/Vol] 3.3 g/dL Normal 2.2-4.2 [facility] Comment on above: Performed By: #### L 500.4050, L500.4100, L501.9520, L100.0100, L501.0900, L501.9985 ####[facility] [address] [place], [address] Glucose [Mass/Vol] 103 mg/dL Normal 74-106 [facility] Comment on above: Result Comment: Fast ing Glucose result from 100 to 125 mg/dL suggests IMPAIRED HOMEOSTASIS per A.D.A. criteria. Performed By: #### L 500.4050, L500.4100, L501.9520, L100.0100, L501.0900, L501.9985 ####[facility] [address] [place], [address] Potassium [Moles/Vol] 3.7 mmol/L Normal 3.5-5.1 [facility] Comment on above: Performed By: #### L 500.4050, L500.4100, L501.9520, L100.0100, L501.0900, L501.9985 ####[facility] [address] [place], [address] Sodium [Moles/Vol] 141 mmol/L Normal 136-145 [facility] Comment on above: Performed By: #### L 500.4050, L500.4100, L501.9520, L100.0100, L501.0900, L501.9985 ####[facility] [address] [place], [address] T PROT 6.9 g/dL Normal 6.4-8.2 [facility] Comment on above: Performed By: #### L 500.4050, L500.4100, L501.9520, L100.0100, L501.0900, L501.9985 ####[facility] [address] [place], [address] Urea nitrogen [Mass/Vol] 21 mg/dL High 7-18 [facility] Comment on above: Performed By: #### L 500.4050, L500.4100, L501.9520, L100.0100, L501.0900, L501.9985 ####[facility] [address] [place], [address] Hemoglobin A1con 03-13-2024 HbA1c (Bld) [Mass fraction] 6.9 % High 3.8-5.6 [facility] Comment on above: Result Comment: Norm al < 5.7 % Prediabetic 5.7 - 6.4 % Diabetic >or= 6.5 % Please note range changes. Performed By: #### L 500.4050, L500.4100, L501.9520, L100.0100, L501.0900, L501.9985 ####[facility] [address] [place], [address] Lipid Profileon 03-13-2024 Cholesterol [Mass/Vol] 145 mg/dL Normal 200 [facility] Comment on above: Result Comment: <200 mg/dL Desirable 200-240 mg/dL Borderline >240 mg/dL High Risk Performed By: #### L 500.4050, L500.4100, L501.9520, L100.0100, L501.0900, L501.9985 ####[facility] [address] [place], [address] Cholesterol in HDL [Mass/Vol] 31 mg/dL Low [facility] Comment on above: Result Comment: The drugs N-Acetylcysteine and Metamizole may falsely depress this assay. Reference Range HDL <40 mg/dL Low HDL Cholesterol HDL >or= 60 mg/dL High HDL Cholesterol Performed By: #### L 500.4050, L500.4100, L501.9520, L100.0100, L501.0900, L501.9985 ####[facility] [address] [place], [address] Cholesterol in LDL [Mass/Vol] 91 mg/dL Normal 0-130 [facility] Comment on above: Performed By: #### L 500.4050, L500.4100, L501.9520, L100.0100, L501.0900, L501.9985 ####[facility] [address] [place], [address] Cholesterol in VLDL [Mass/Vol] 23 mg/dL Normal 5-40 [facility] Comment on above: Performed By: #### L 500.4050, L500.4100, L501.9520, L100.0100, L501.0900, L501.9985 ####[facility] [address] [place], [address] Triglyceride [Mass/Vol] 113 mg/dL Normal [facility] Comment on above: Result Comment: The drugs N-Acetylcysteine and Metamizole may falsely depress this assay. Serum Triglycerides Reference Interval Normal <150 mg/dL Borderline high 150 - 199 mg/dL High 200 - 499 mg/dL Very High > or = 500 mg/dL Performed By: #### L 500.4050, L500.4100, L501.9520, L100.0100, L501.0900, L501.9985 ####[facility] [address] [place], [address] Protein+Creatinine Ratio,Uri neon 03-13-2024 PROT:CRE RATIO 67 mg/g CRE Normal 0-200 [facility] Comment on above: Performed By: #### L 500.4050, L500.4100, L501.9520, L100.0100, L501.0900, L501.9985 ####[facility] [address] [place], [address] Protein (U) [Mass/Vol] 6.2 mg/dL Normal <11.9 [facility] Comment on above: Performed By: #### L 500.4050, L500.4100, L501.9520, L100.0100, L501.0900, L501.9985 ####[facility] [address] [place], [address] UR CREAT 92.60 mg/dL Normal NO RANGE EST. [facility] Comment on above: Performed By: #### L 500.4050, L500.4100, L501.9520, L100.0100, L501.0900, L501.9985 ####[facility] [address] [place], [address] Thyroid Stim Hormone (TSH)on 03-13-2024 TSH 2.240 uIU/mL Normal 0.358-3.740 [facility] Comment on above: Performed By: #### L 500.4050, L500.4100, L501.9520, L100.0100, L501.0900, L501.9985 ####[facility] [address] [place], [address] User Acceptance Tester Office Visit Reporton 02-19-2024 User Acceptance Tester Office Visit Report [facility] [address], [address] [place] [address] OFFICE VISIT Date of Service: 02/19/24 MR#: [id number] Acct: [id number] Name: FRANCHESKA CROSS Rep #: [id number] : 1955 Provider: Dr. Selina pathak MD Age/Sex: 68/F [place] [facility] [place]: Signed Intake Vital Signs 12/12/23 11:47 02/04/24 11:05 02/19/24 10:46 02/19/24 10:49 02/19/24 10:53 Height 5 ft 6 in 5 ft 6 in 5 ft 6 in 5 ft 6 in Weight: 208 lb BMI 33.5 BP 143/83 H 123/82 H Intake Visit Reasons: 2 wk D C with [facility] [employer] Required: No Is patient in pain?: No Feel stressed/tense/nervous /anxious/difficulty sleeping: not at all Allergies hydrocodone (From Vicodin) Allergy (Unknown, Verified 02/19/24 10:49) Unknown Medications ???Medication ???Instructions ???Recorded ???Confirmed ???Type aspirin 81 mg tablet,delayed 81 mg PO QDAY 05/15/17 02/19/24 History release (Adult Low Dose Aspirin) calcium 600 mg (as 1 cap PO ONCE 05/15/17 02/19/24 History carbonate)-vitamin D3 5 mcg (200 unit) capsule lisinopril 20 2 tab PO DAILY 09/28/23 02/19/24 History mg-hydrochlorothiazide 12.5 mg tablet metformin 500 mg tablet 500 mg PO BID #60 tabs 09/28/23 02/19/24 Rx amlodipine 5 mg tablet 5 mg PO QHS 01/22/24 02/19/24 History atorvastatin 10 mg tablet 10 mg PO QHS 01/22/24 02/19/24 History turmeric 400 mg capsule 400 mg PO DAILY 01/22/24 02/19/24 History antiarthritic combination no.2 900 1,500 mg PO DAILY 01/24/24 02/19/24 History mg tablet (glucosamine-chondroit in) cholecalciferol (vitamin D3) 125 125 mcg PO QDAY 01/24/24 02/19/24 History mcg (5,000 unit) capsule megestrol 40 mg tablet 40 mg PO DAILY #30 tabs 02/19/24 02/19/24 Rx Is last menstrual period known: No Post menopausal: Yes Patient : No : No PFSH Medical History Wears glasses Diabetes Ambulates with cane High cholesterol Non-smoker Incisional hernia of anterior abdominal wall without obstruction or gangrene Arthritis Heart murmur Surgical History Status post hysteroscopic polypectomy History of incisional hernia repair Dislocation, shoulder closed S/P appendectomy S/P cholecystectomy Family History Mother Hypertension Father Diabetes Son Seizures Social History number of children: 6 Smoking Status: Never smoker second hand exposure: No alcohol intake: never substance use type: does not use caffeine: No what type of physical activity do you participate in: none frequency: does not exercise seatbelt use: always additional social history: Sanchez HPI 2 wk D C with [facility] Details: FRANCHESKA CROSS is a 68 year old who presents for postop from polypectomy. she hasn't had any bleeding, no pelvic pain or pressure, denies any fevers. History Past Pregnancies Del. Date Name GA/Weeks Outcome Route Bth Weight Infant Gen Labor Lgth Anesthesia Del Locatn Provider FOB Unknown Alex Unknown Kyle Unknown Hever Unknown Huang Unknown Syd Unknown Liliana ROS Const Constitutional: Denies fatigue, fever(s), headache(s), increased appetite, poor appetite, weight gain or weight loss GI GI: Reports as per HPI; Denies abdominal pain, constipation, nausea or vomiting : Reports as per HPI; Denies difficulty voiding, dysuria, hematuria, pelvic pain, urinary frequency, urinary incontinence, urinary hesitancy, urinary urgency, vaginal discharge, vaginal dryness, vaginal odor, vaginal pruritus or other Exam Const General: cooperative, healthy appearing, comfortable, no acute distress and well developed Orientation: alert HENMT Head: normal to inspection and normocephalic Ears: hearing grossly normal bilaterally and external ears normal Nose: external nose normal and nares normal Face and sinus: normal facial exam Neck Neck: normal visual inspection, no lymphadenopathy and trachea midline Thyroid: thyroid normal Resp Effort Inspection: normal respiratory effort Musc Other: gross motor intact no deficits, full bilateral strength Skin General: no rashes or lesions noted Neuro Motor: muscle tone normal throughout Coding Level of Care Code Off vis,est,level 4 Diagnoses Postmenopausal bleeding N95.0 Assessment and Plan Assessment and Plan (1) Postmenopausal bleeding: Status: Acute Comment: simple hyperplasia without atypia. s/p d and c hysteroscopy. plan megace x 6 months then emb. Medications: New megestrol 40 mg PO DAILY 30 tabs 5RF Plan Problem list updated and treatment plans were reviewe (more content not included)... Normal [facility] Discharge Instructionon Discharge Instruction [facility] Medical Records Department [address] [place] [address] Instructions for Home/Discharge Instructions 02/04/24 1514 MR#: [id number] Acct: [id number] Name: FRANCHESKA CROSS Rep #: [id number] : 1955 68 From: Selina Beal MD PCP: Dr. Janey Camp MD Status:REG [facility] [place] Discharge Instructions Diet Discharge Diet: No restrictions Activity Discharge Activity: Return to Normal Activity, May Shower and May Take a Tub Bath (after 1 week) May resume sexual activity in: 1-2 weeks Weight Bearing Status: Weight bearing as tolerated Lifting Restrictions: none Dressing / Incision Call your doctor if you observe: Fever of 101 or Higher, Using more than 1 pad per hour, Shortness of breath and Uncontrolled pain Follow Up Care Please Follow Up With: Selina Beal MD When: Call [phone] to schedule appointment. Test Results: Test results from this visit will be discussed in further detail at your follow-up appointment, if applicable. Discharge Plan Admission Attending Provider: Selina Beal Primary Care Provider: Janey Camp Print Language: Greek Discharge Orders/Prescriptions Prescriptions: No Action aspirin [Adult Low Dose Aspirin] 81 mg tablet,delayed release (DR/EC) 81 mg PO QDAY calcium carbonate-vitamin D3 600 mg calcium- 200 unit capsule 1 cap PO ONCE cholecalciferol (vitamin D3) 125 mcg (5,000 unit) capsule 125 mcg PO QDAY glucosamine-chondroiti n 900 mg tablet 1,500 mg PO DAILY amlodipine 5 mg tablet 5 mg PO QHS atorvastatin 10 mg tablet 10 mg PO QHS turmeric 400 mg capsule 400 mg PO DAILY lisinopril-hydrochloro thiazide 20-12.5 mg tablet 2 tab PO DAILY metformin 500 mg tablet 500 mg PO BID Qty: 60 0RF Referrals / Follow Up: Janey Camp MD [Primary Care Provider] - Disposition Disposition (needs filled in before D/C Order can be placed): Home, Self Care 02/04/24 1514 Selina Beal MD CC: Dr. Janey Camp MD Signed [facility] MR/POSTOP.[facility] 02-04-2024 MR/POSTOP.[facility] Medical Records Department [address] [place] [address] Anesthesia Postop Eval I 02/04/24 1532 MR#: [id number] Acct: [id number] Name: FRANCHESKA CROSS Rep #: [id number] : 1955 68 From: Luz Maria Schumacher CRNA PCP: Dr. Janey Camp MD Status:REG [facility] Y Race: C Location: [place] [address] Anesthesia: Postop Eval I Current Vital Signs Temperature: 97.2 F Pulse Rate: 77 Blood Pressure: 119/83 Respiratory Rate: 20 Pulse Ox: 96 Oxygen Delivery Method: Room Air Assessment Airway patent: Yes Spontaneous unlabored respirations: Yes Mental status: Awake nausea: No Vomiting: No Anesthesia Complication: No Fluid Hydration Crystalloid volume administer (ml): 800 Total IV fluid infused: 800 Progress Note Anesthesia document: Postop Eval 1 completed: Yes 02/04/24 1534 Date Luz Maria Schumacher 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 WORKER Cosigner Signature: Date CC: Signed Normal [facility] MR/[id number] 02-04-2024 MR/POSTOPAN2 [facility] Medical Records Department [address] [place] [address] Anesthesia Postop Eval II 02/04/241648 MR#: [id number] Acct: [id number] Name: FRANCHESKA CROSS Rep #: [id number] : 1955 68 From: John Jung MD PCP: Dr. Janey Camp MD Status:REG SDC Y Race: C Location: [place] [address]- Anesthesia Postop Eval I Sum Postop Eval Completion status Anesthesia document: Postop Eval 1 completed: Yes Anesthesia Postop Eval I Summary Anesthesia Postop Eval I Summary: Anesthesia Postop Eval I: Assessment Summary Airway patent Yes 02/04/24 15:34 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 WORKER.JDEF Spontaneous unlabored Yes 02/04/24 15:34 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 WORKER.JDEF respirations Mental status Awake 02/04/24 15:34 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 WORKER.JDEF nausea No 02/04/24 15:34 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 WORKER.JDEF Vomiting No 02/04/24 15:34 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 WORKER.JDEF Anesthesia Postop Eval I: Fluid Summary Crystalloid volume administer 800 02/04/24 15:34 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 WORKER.JDEF (ml) Colloids volume administered ( ml) Blood Product volume administered (ml) Total IV fluid infused 800 02/04/24 15:34 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 WORKER.JDEF Anesthesia Postop Eval I: Summary Notes Anesthesia Complication No 02/04/24 15:34 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 WORKER.JDEF Anesthesia Complication Comment: Post-operative progress note Anesthesia: Postop Eval II Evaluation Mental status: Awake and Calm Pain Level: 1 nausea: No Vomiting: No Complications Anesthesia Complication: No 02/04/241648 Date John Jung MD Cosigner Signature: Date CC: Signed Normal [facility] Operative Reporton Operative Report [facility] Medical Records Department [address] [place] [address] Operative Report 02/04/24 1512 MR#: [id number] Acct: [id number] Name: FRANCHESKA CROSS Rep #: [id number] : 1955 68 From: Selina Beal MD PCP: Dr. Janey Camp MD Status:REG [facility] Location: [place] [address] Problems Associated Problem List Diagnoses (1) Postmenopausal bleeding: (2) Thickened endometrium: (3) Status post hysteroscopic polypectomy: Report of Operation Date of Procedure: 02/04/24 Pre-Operative Diagnosis: see problem list Post-Operative Diagnosis: same Surgery/Procedure Performed:: D C hysteroscopy polypectomy using symphion Description of Surgical Findings:: large endometrial polyp Surgeon: Selina Beal director global medical affairs: None Type of Anesthesia: Local MAC Special Medications: none Specimen's removed: EMC, polyp Drains: none Estimated Blood Loss (mL): 50 Fluids Replaced: crystalloid Description of Procedure: Patient was prepped and draped in a normal sterile fashion under MAC anesthesia. A weighted speculum was placed in the vagina and the anterior lip of the cervix was grasped with a single-tooth tenaculum. A paracervical block was placed with 1% lidocaine. Cervix was progressively dilated to allow passage of a 5 mm hysteroscope. The lining was fully visualized and noted to have large endometrial polyp . Uterine sounded to 10 cm. Using the symphion device, the polyp was progressively removed without complications. Direct visual curettage was performed using the device , and all specimens were sent to pathology. All instruments were removed from the vagina and excellent hemostasis was noted. Patient was awoken and taken to recovery in stable condition. Grafts/Implants Used: none Procedure Start Time: 15:02 Procedure Stop Time: 01:50 Complications none Admit VTE Documentation VTE Present on Admission: No VTE Mechan Device Prophylaxis: SCD's Multi Select Codes Urinary/Genital Urinary/Genital CPT Codes: 44717 Hysteroscopy,EMC, Polypectomy 02/04/24 1514 Cosigner Signature (if applicable): CC: Dr. Janey Camp MD; Dr. Selina Beal MD Signed ADDENDUM by Dr. Selina Beal MD on 02/04/24 at 1514 Addendum end time 1510 02/04/24 1514 Cosigner Signature (if applicable): cc: Dr. Janey Camp MD; Dr. Selina Beal MD * Signed Normal [facility] Potassiumon 02-04-2024 Potassium [Moles/Vol] 3.5 mmol/L Normal 3.5-5.1 [facility] Comment on above: Performed By: #### L 501.5600 ####[facility] [address] [place], [address] Surgery Specimen Level Sandi 02-04-2024 Surgery Specimen Level IV ---- Patient Age/Sex Location Account Attending Physician ---- FRANCHESKA CROSS 68/F [facility] [id number] Dr. Selina Beal MD ---- Specimen: [id number] Received: 02/04/24 Status: MARISA Cisneros Num: [id number] Spec Type: ENDOM BX/C Aly Dr: Dr. Selina Beal MD HEADER OPERATION: Hysteroscopy, D C PRE-OP DIAGNOSIS: Post menopausal bleeding, endometrial hyperplasia TISSUE SUBMITTED: Endometrial curettings, polyp ---- MICROSCOPIC DIAGNOSIS Endometrial curettings and polyp, dilatation and curettage: Simple cystic endometrial hyperplasia without atypia. A few fragments of myometrium. 02/06/2024 MICROSCOPIC DESCRIPTION Slides are reviewed. GROSS DESCRIPTION Received in fixative is one container labeled with the patient's name and designated Endometrial curettings and polyp. The specimen consists of multiple fragments of esparza soft tissue that in aggregate measure 6.0 x 3.0 x 2.0 cm. The specimen is totally submitted in fourteen cassettes. 02/05/2024 TC:5 CPT:84990 ---- Patient Age/Sex Location Account Attending Physician ---- FARNCHESKA CROSS 68/F [facility] [id number] Dr. Sleina Beal MD ---- Signed (signature on file) Dr. José Miguel Lujan MD 02/06/24 1325 ---- Normal [facility] Comment on above: Performed By: #### L 501.4405, L500.4100, L501.4100 #### [facility] [address] [facility] [place], [address] 12 Lead EKGon 01-30-2024 12 Lead EKG [facility] Cardiovascular Services [address] [place] [address] 12 Lead EKG 01/30/24 0835 MR#: [id number] Acct: [id number] Name: FRANCHESKA CROSS Rep #: [id number] : 1955 68 From: Marcelo Vizcaino MD Attending Dr: Dr. Selina Beal MD Status: PRE SDC Ordering Dr: Selina Beal MD Date: 01/30/24 Location: [facility] Sex: F C Admitted: Test Reason : PRE OP Blood Pressure : / mmHG Vent. Rate : 072 BPM Atrial Rate : 072 BPM P-R Int : 166 ms QRS Dur : 078 ms QT Int : 398 ms P-R-T Axes : 042 010 074 degrees QTc Int : 435 ms Normal sinus rhythm with sinus arrhythmia Nonspecific ST and T wave abnormality Abnormal ECG Confirmed by Marcelo Vizcaino ([id number]), publications editor HANNA GARZA ([id number]) on 01/31/2024 5:59:52 AM Referred By: Selina Beal Confirmed By:Marcelo Vizcaino 01/31/24 0559 Date Marcelo Vizcaino MD CC: Dr. Janey Camp MD; Dr. Selina Beal MD Signed Normal [facility] AST(SGOT)on 01-30-2024 AST [Catalytic activity/Vol] 8 U/L Low 15-37 [facility] Comment on above: Order Comment: PER P T-DO BOTH DR KERMIT CAMP-LIPID,AST,ALT MARCANTHONY-OTHER TESTS Order Date: 12/31/23 Order Info: [id number] - LIPID Order Info: 1919-12 - AST Order Info: 1741-10 - ALT Performed By: #### L 501.4405, L500.4100, L501.4100 #### [facility] [address] [place], [address] Alanine Aminotransferas (SGP T)on 01-30-2024 ALT [Catalytic activity/Vol] 18 U/L Normal 13-56 [facility] Comment on above: Order Comment: PER P T-DO BOTH DR KERMIT CAMP-LIPID,AST,ALT MARCANTHONY-OTHER TESTS Order Date: 12/31/23 Order Info: [id number] - LIPID Order Info: 1919-12 - AST Order Info: 1741-10 - ALT Performed By: #### L 501.4405, L500.4100, L501.4100 #### [facility] [address] [place], [address] Comprehensive Metabolic Prof ilon 01-30-2024 Albumin [Mass/Vol] 3.6 g/dL Normal 3.2-5.0 [facility] Comment on above: Order Comment: PER P T-DO BOTH DR KARIMI-LIPID,AST,ALTMARCANTHONY-OTHER TESTS Performed By: #### B TSPAT, L500.4050, L501.9985 ####[facility] [address] [place], [address] Albumin/Globulin [Mass ratio] 1.2 {ratio} Normal 0.9-2.4 [facility] Comment on above: Order Comment: PER P T-DO BOTH DR KARIMI-LIPID,AST,ALTMARCANTHONY-OTHER TESTS Performed By: #### B TSPAT, L500.4050, L501.9985 ####[facility] [address] [place], [address] ALK P 49 U/L Normal 45-117 [facility] Comment on above: Order Comment: PER P T-DO BOTH DR KARIMI-LIPID,AST,ALTMARCANTHONY-OTHER TESTS Performed By: #### B TSPAT, L500.4050, L501.9985 ####[facility] [address] [place], [address] ALT [Catalytic activity/Vol] 17 U/L Normal 13-56 [facility] Comment on above: Order Comment: PER P T-DO BOTH DR KARIMI-LIPID,AST,ALTMARCANTHONY-OTHER TESTS Performed By: #### B TSPAT, L500.4050, L501.9985 ####[facility] [address] [place], [address] AST [Catalytic activity/Vol] 14 U/L Low 15-37 [facility] Comment on above: Order Comment: PER P T-DO BOTH DR KARIMI-LIPID,AST,ALTMARCANTHONY-OTHER TESTS Performed By: #### B TSPAT, L500.4050, L501.9985 ####[facility] [address] [place], [address] Bilirubin [Mass/Vol] 0.60 mg/dL Normal 0.20-1.00 [facility] Comment on above: Order Comment: PER P T-DO BOTH DR KARIMI-LIPID,AST,ALTMARCANTHONY-OTHER TESTS Result Comment: For patients on eltrombopag therapy, use of Dimension Menno TBIL is not recommended. Performed By: #### B TSPAT, L500.4050, L501.9985 ####[facility] [address] [place], [address] BUN/CRE 22.5 RATIO High 10-20 [facility] Comment on above: Order Comment: PER P T-DO BOTH DR KARIMI-LIPID,AST,ALTMARCANTHONY-OTHER TESTS Performed By: #### B TSPAT, L500.4050, L501.9985 ####[facility] [address] [place], [address] CA,Total 9.3 mg/dL Normal 8.5-10.1 [facility] Comment on above: Order Comment: PER P T-DO BOTH DR KARIMI-LIPID,AST,ALTMARCANTHONY-OTHER TESTS Performed By: #### B TSPAT, L500.4050, L501.9985 ####[facility] [address] [place], [address] Chloride [Moles/Vol] 104 mmol/L Normal 98-107 [facility] Comment on above: Order Comment: PER P T-DO BOTH DR KARIMI-LIPID,AST,ALTMARCANTHONY-OTHER TESTS Performed By: #### B TSPAT, L500.4050, L501.9985 ####[facility] [address] [place], [address] CO2 [Moles/Vol] 32.0 mmol/L Normal 21.0-32.0 [facility] Comment on above: Order Comment: PER P T-DO BOTH DR KARIMI-LIPID,AST,ALTMARCANTHONY-OTHER TESTS Performed By: #### B TSPAT, L500.4050, L501.9985 ####[facility] [address] [place], [address] Creatinine [Mass/Vol] 0.89 mg/dL Normal 0.55-1.02 [facility] Comment on above: Order Comment: PER P T-DO BOTH DR KARIMI-LIPID,AST,ALTMARCANTHONY-OTHER TESTS Result Comment: The validity of the calculated GFR GFRAA in patients over 70 years has not been determined. Clinical correlation is essential. Performed By: #### B TSPAT, L500.4050, L501.9985 ####[facility] [address] [place], [address] EST GFR - AA 81 mL/min Normal >60 [facility] Comment on above: Order Comment: PER P T-DO BOTH DR KARIMI-LIPID,AST,ALTMARCANTHONY-OTHER TESTS Result Comment: Afri can Brazilian GFR Calc Performed By: #### B TSPAT, L500.4050, L501.9985 ####[facility] [address] [place], [address] GAP 5 Normal 5-15 [facility] Comment on above: Order Comment: PER P T-DO BOTH DR KARIMI-LIPID,AST,ALTMARCANTHONY-OTHER TESTS Performed By: #### B TSPAT, L500.4050, L501.9985 ####[facility] [address] [place], [address] GFR/1.73 sq M.predicted among non-blacks MDRD (S/P/Bld) [Vol rate/Area] 67 mL/min/{1.73_m2} Normal >60 [facility] Comment on above: Order Comment: PER P T-DO BOTH DR KARIMI-LIPID,AST,ALTMARCANTHONY-OTHER TESTS Result Comment: Non- GFR Calc Performed By: #### B TSPAT, L500.4050, L501.9985 ####[facility] [address] [place], [address] Globulin (S) [Mass/Vol] 3.1 g/dL Normal 2.2-4.2 [facility] Comment on above: Order Comment: PER P T-DO BOTH DR KARIMI-LIPID,AST,ALTMARCANTHONY-OTHER TESTS Performed By: #### B TSPAT, L500.4050, L501.9985 ####[facility] [address] [place], [address] Glucose [Mass/Vol] 128 mg/dL High 74-106 [facility] Comment on above: Order Comment: PER P T-DO BOTH DR KARIMI-LIPID,AST,ALTMARCANTHONY-OTHER TESTS Result Comment: Fast ing Glucose result greater than or equal to 126 mg/dL suggests DIABETES MELLITUS per A.D.A. criteria. Performed By: #### B TSPAT, L500.4050, L501.9985 ####[facility] [address] [place], [address] Potassium [Moles/Vol] 3.3 mmol/L Low 3.5-5.1 [facility] Comment on above: Order Comment: PER P T-DO BOTH DR KARIMI-LIPID,AST,ALTMARCANTHONY-OTHER TESTS Performed By: #### B TSPAT, L500.4050, L501.9985 ####[facility] [address] [place], [address] Sodium [Moles/Vol] 141 mmol/L Normal 136-145 [facility] Comment on above: Order Comment: PER P T-DO BOTH DR KARIMI-LIPID,AST,ALTMARCANTHONY-OTHER TESTS Performed By: #### B TSPAT, L500.4050, L501.9985 ####[facility] [address] [place], [address] T PROT 6.7 g/dL Normal 6.4-8.2 [facility] Comment on above: Order Comment: PER P T-DO BOTH DR KARIMI-LIPID,AST,ALTMARCANTHONY-OTHER TESTS Performed By: #### B TSPAT, L500.4050, L501.9985 ####[facility] [address] [place], [address] Urea nitrogen [Mass/Vol] 20 mg/dL High 7-18 [facility] Comment on above: Order Comment: PER P T-DO BOTH DR KARIMI-LIPID,AST,ALTMARCANTHONY-OTHER TESTS Performed By: #### B TSPAT, L500.4050, L501.9985 ####[facility] [address] [place], [address] Hemoglobin A1con 01-30-2024 HbA1c (Bld) [Mass fraction] 6.6 % High 3.8-5.6 [facility] Comment on above: Order Comment: PER P T-DO BOTH DR KARIMI-LIPID,AST,ALTMARCANTHONY-OTHER TESTS Result Comment: Norm al < 5.7 % Prediabetic 5.7 - 6.4 % Diabetic >or= 6.5 % Please note range changes. Performed By: #### B TSPAT, L500.4050, L501.9985 ####[facility] [address] [place], [address] Lipid Profileon 01-30-2024 Cholesterol [Mass/Vol] 151 mg/dL Normal 200 [facility] Comment on above: Order Comment: PER P T-DO BOTH DR KERMIT CAMP-LIPID,AST,ALT MARCANTHONY-OTHER TESTS Order Date: 12/31/23 Order Info: [id number] - LIPID Order Info: 192 - AST Order Info: 174- - ALT Result Comment: <200 mg/dL Desirable 200-240 mg/dL Borderline >240 mg/dL High Risk Performed By: #### L 501.4405, L500.4100, L501.4100 #### [facility] [address] [place], [address] Cholesterol in HDL [Mass/Vol] 55 mg/dL Normal [facility] Comment on above: Order Comment: PER P T-DO BOTH DR KERMIT CAMP-LIPID,AST,ALT MARCANTHONY-OTHER TESTS Order Date: 12/31/23 Order Info: [id number] - LIPID Order Info: 1919-12 - AST Order Info: 1741-10 - ALT Result Comment: The drugs N-Acetylcysteine and Metamizole may falsely depress this assay. Reference Range HDL <40 mg/dL Low HDL Cholesterol HDL >or= 60 mg/dL High HDL Cholesterol Performed By: #### L 501.4405, L500.4100, L501.4100 #### [facility] [address] [place], [address] Cholesterol in LDL [Mass/Vol] 70 mg/dL Normal 0-130 [facility] Comment on above: Order Comment: PER P T-DO BOTH DR CARMEN JOMANUELIFF-LIPID,AST,ALT MARCANTHONY-OTHER TESTS Order Date: 12/31/23 Order Info: [id number] - LIPID Order Info: 1919-12 - AST Order Info: 1741-10 - ALT Performed By: #### L 501.4405, L500.4100, L501.4100 #### [facility] [address] [place], [place], [id number] (037) Cholesterol in VLDL [Mass/Vol] 26 mg/dL Normal 5-40 [facility] Comment on above: Order Comment: PER P T-DO BOTH DR CARMEN JOLLIFF-LIPID,AST,ALT MARCANTHONY-OTHER TESTS Order Date: 12/31/23 Order Info: [id number] - LIPID Order Info: 1919-12 AST Order Info: 1741-10 - ALT Performed By: #### L 501.4405, L500.4100, L501.4100 #### [facility] [address] [place], [place], [id number] (405) Triglyceride [Mass/Vol] 130 mg/dL Normal [facility] Comment on above: Order Comment: PER P T-DO BOTH DR CARMEN JOLLIFF-LIPID,AST,ALT MARCANTHONY-OTHER TESTS Order Date: 12/31/23 Order Info: [id number] - LIPID Order Info: 192 - AST Order Info: 1742-6 - ALT Result Comment: The drugs N-Acetylcysteine and Metamizole may falsely depress this assay. Serum Triglycerides Reference Interval Normal <150 mg/dL Borderline high 150 - 199 mg/dL High 200 - 499 mg/dL Very High > or = 500 mg/dL Performed By: #### L 501.4405, L500.4100, L501.4100 #### [facility] [address] [place], [place], [address] Type AND Screen - PAT ONLYon 01-30-2024 Ab SCREEN GEL Negative Normal [facility] Comment on above: Order Comment: PER P T-DO BOTH DR KARIMI-LIPID,AST,ALTMARCANTHONY-OTHER TESTSReason for Laboratory Test [id number] Performed By: #### B TSPAT, L500.4050, L501.9985 ####[facility] [address] [place], [place], [address] User Acceptance Tester Office Visit Reporton 01-24-2024 User Acceptance Tester Office Visit Report [facility], [address] [place] [address] OFFICE VISIT Date of Service: 01/24/24 MR#: [id number] Acct: [id number] Name: FRANCHESKA CROSS Rep #: [id number] : 1955 Provider: Dr. Selina pathak MD Age/Sex: 68/F Location[place] [facility] Status: Signed Intake Vital Signs 12/12/23 11:47 01/24/24 13:13 01/24/24 13:21 Height 5 ft 6 in 5 ft 6 in 5 ft 6 in Weight: 213 lb BMI 34.3 BP 149/79 H Blood Pressure Location Lt brachial Position Sitting Intake Visit Reasons[facility] [employer] [facility] Required: No Is patient in pain?: Yes (arthritis pain) Allergies hydrocodone (From Vicodin) Allergy (Unknown, Verified 01/24/24 13:13) Unknown Medications ???Medication ???Instructions ???Recorded ???Confirmed ???Type aspirin 81 mg tablet,delayed 81 mg PO QDAY 05/15/17 01/24/24 History release (Adult Low Dose Aspirin) calcium carbonate 600 mg-vitamin 1 cap PO ONCE 05/15/17 01/22/24 History D3 5 mcg (200 unit) capsule lisinopril 20 2 tab PO DAILY 09/28/23 01/24/24 History mg-hydrochlorothiazide 12.5 mg tablet metformin 500 mg tablet 500 mg PO BID #60 tabs 09/28/23 01/24/24 Rx amlodipine 5 mg tablet 5 mg PO QHS 01/22/24 01/24/24 History atorvastatin 10 mg tablet 10 mg PO QHS 01/22/24 01/24/24 History turmeric 400 mg capsule 400 mg PO DAILY 01/22/24 01/24/24 History antiarthritic combination no.2 900 mg PO 01/24/24 01/24/24 History mg tablet (glucosamine-chondroit in) cholecalciferol (vitamin D3) 125 125 mcg PO QDAY 01/24/24 01/24/24 History mcg (5,000 unit) capsule Is last menstrual period known: No Post menopausal: Yes Patient : No [facility] Wears glasses Diabetes Ambulates with cane High cholesterol Non-smoker Incisional hernia of anterior abdominal wall without obstruction or gangrene Arthritis Heart murmur Surgical History History of incisional hernia repair Dislocation, shoulder closed S/P appendectomy S/P cholecystectomy Family History Mother Hypertension Father Diabetes Son Seizures Social History (Updated 01/24/24 @ 13:18 by Yen Cho) number of children: 6 Smoking Status: Never smoker second hand exposure: No alcohol intake: never substance use type: does not use caffeine: No what type of physical activity do you participate in: none frequency: does not exercise seatbelt use: always additional social history: Sanchez HPI consult/preop D C with symphion Details: FRANCHESKA CROSS is a 68 year old who presents for endometrial hyperplasia, she had PMB over the summer, US showed 23 mm thickening. she had pap smears done in the past that were normal, unsure when the last one was. she denies any bleeidng now. no pelvic pain or pressure now. Female Reproductive History Menopausal Symptoms: No night sweats History Past Pregnancies Del. Date Name GA/Weeks Outcome Route Bth Weight Infant Gen Labor Lgth Anesthesia Del Locatn Provider FOB Unknown Alex Unknown Kyle Unknown Hever Unknown Huang Unknown Syd Unknown Liliana ROS Const Constitutional: Denies fatigue, night sweats, weight gain or weight loss ENT ENT: Reports system reviewed and no additional complaints, except as documented Cardio Card: Denies chest pain Resp Resp: Denies cough or dyspnea GI GI: Reports as per HPI; Denies abdominal pain, constipation, nausea or vomiting : Reports urinary frequency, urinary incontinence and urinary urgency; Denies nipple discharge, urinary hesitancy, vaginal discharge, vaginal dryness, vaginal odor or vaginal pruritus Musc Musc: Reports arthralgias and back pain; Denies muscle weakness Skin Skin/Breast: Denies alopecia, change in hair, dry skin, breast mass, breast pain, breast skin changes or nipple discharge Neuro Neuro: Reports system reviewed and no additional complaints, except as documented Psych Psych: Reports system reviewed and no additional complaints, except as documented Endo Endo: Denies cold intolerance, excessive sweating, heat intolerance or polydipsia Joseph/Lymph Hematologic/Lymphatic: Denies easy bleeding, Denies easy bruising and Denies lymphadenopathy Exam Const General: cooperative, healthy appearing, comfortable and no acute distress Orientation: alert [facility] Head: normal to inspection and normocephalic Ears: hearing grossly normal bilaterally and external ears normal Nose: external nose normal and nares normal Face and sinus: normal facial exam Neck Neck: normal visual inspection and no lymphadenopathy Thyroid: thyroid (more content not included)... Normal [facility] Basic Metabolic Profile (BMP )on 12-31-2023 BUN/CRE 28.7 RATIO High 10-20 [facility] Comment on above: Order Comment: Order Date: 12/31/23Order Info: [id number] - BMPOrder Info: [id number] - LIPID Performed By: #### L 500.2500, L500.4100 ####[facility] [address] [place], [address] CA,Total 9.7 mg/dL Normal 8.5-10.1 [facility] Comment on above: Order Comment: Order Date: 12/31/23Order Info: 666-05 - BMPOrder Info: [id number] - LIPID Performed By: #### L 500.2500, L500.4100 ####[facility] [address] [place], [address] Chloride [Moles/Vol] 104 mmol/L Normal 98-107 [facility] Comment on above: Order Comment: Order Date: 12/31/23Order Info: 666-05 - BMPOrder Info: [id number] - LIPID Performed By: #### L 500.2500, L500.4100 ####[facility] [address] [place], [address] CO2 [Moles/Vol] 27.0 mmol/L Normal 21.0-32.0 [facility] Comment on above: Order Comment: Order Date: 12/31/23Order Info: 666-05 - BMPOrder Info: [id number] - LIPID Performed By: #### L 500.2500, L500.4100 ####[facility] [address] [place], [address] Creatinine [Mass/Vol] 0.84 mg/dL Normal 0.55-1.02 [facility] [facility] Comment on above: Order Comment: Order Date: 12/31/23Order Info: 666-05 - BMPOrder Info: [id number] - LIPID Result Comment: The validity of the calculated GFR GFRAA in patients over 70 years has not been determined. Clinical correlation is essential. Performed By: #### L 500.2500, L500.4100 ####[facility] [address] [place], [address] EST GFR - AA 87 mL/min Normal >60 [facility] Comment on above: Order Comment: Order Date: 12/31/23Order Info: 666-05 - BMPOrder Info: [id number] - LIPID Result Comment: Afri can Brazilian GFR Calc Performed By: #### L 500.2500, L500.4100 ####[facility] [address] [place], [address] GAP 9 Normal 5-15 [facility] Comment on above: Order Comment: Order Date: 12/31/23Order Info: 666- - BMPOrder Info: [id number] - LIPID Performed By: #### L 500.2500, L500.4100 ####[facility] [address] [place], [address] GFR/1.73 sq M.predicted among non-blacks MDRD (S/P/Bld) [Vol rate/Area] 72 mL/min/{1.73_m2} Normal >60 [facility] Comment on above: Order Comment: Order Date: 12/31/23Order Info: 666-05 - BMPOrder Info: [id number] - LIPID Result Comment: Non- GFR Calc Performed By: #### L 500.2500, L500.4100 ####[facility] [address] [place], [address] Glucose [Mass/Vol] 170 mg/dL High 74-106 [facility] Comment on above: Order Comment: Order Date: 12/31/23Order Info: 666- - BMPOrder Info: [id number] - LIPID Result Comment: Fast ing Glucose result greater than or equal to 126 mg/dL suggests DIABETES MELLITUS per A.D.A. criteria. Performed By: #### L 500.2500, L500.4100 ####[facility] [address] [place], [address] Potassium [Moles/Vol] 3.4 mmol/L Low 3.5-5.1 [facility] Comment on above: Order Comment: Order Date: 12/31/23Order Info: 666- - BMPOrder Info: [id number] - LIPID Performed By: #### L 500.2500, L500.4100 ####[facility] [address] [place], [address] Sodium [Moles/Vol] 140 mmol/L Normal 136-145 [facility] Comment on above: Order Comment: Order Date: 12/31/23Order Info: 666-05 - BMPOrder Info: [id number] - LIPID Performed By: #### L 500.2500, L500.4100 ####[facility] [address] [place], [address] Urea nitrogen [Mass/Vol] 24 mg/dL High 7-18 [facility] Comment on above: Order Comment: Order Date: 12/31/23Order Info: 666-05 - BMPOrder Info: [id number] - LIPID Performed By: #### L 500.2500, L500.4100 ####[facility] [address] [place], [address] Lipid Profileon 12-31-2023 Cholesterol [Mass/Vol] 224 mg/dL High 200 [facility] Comment on above: Order Comment: Order Date: 12/31/23Order Info: 666-05 - BMPOrder Info: [id number] - LIPID Result Comment: <200 mg/dL Desirable 200-240 mg/dL Borderline >240 mg/dL High Risk Performed By: #### L 500.2500, L500.4100 ####[facility] [address] [place], [address] Cholesterol in HDL [Mass/Vol] 47 mg/dL Normal [facility] Comment on above: Order Comment: Order Date: 12/31/23Order Info: 666-05 - BMPOrder Info: [id number] - LIPID Result Comment: The drugs N-Acetylcysteine and Metamizole may falsely depress this assay. Reference Range HDL <40 mg/dL Low HDL Cholesterol HDL >or= 60 mg/dL High HDL Cholesterol Performed By: #### L 500.2500, L500.4100 ####[facility] [address] [place], [address] Cholesterol in LDL [Mass/Vol] 147 mg/dL High 0-130 [facility] Comment on above: Order Comment: Order Date: 12/31/23Order Info: 666-05 - BMPOrder Info: [id number] - LIPID Performed By: #### L 500.2500, L500.4100 ####[facility] [address] [place], [address] Cholesterol in VLDL [Mass/Vol] 30 mg/dL Normal 5-40 [facility] Comment on above: Order Comment: Order Date: 12/31/23Order Info: 666-05 - BMPOrder Info: [id number] - LIPID Performed By: #### L 500.2500, L500.4100 ####[facility] [address] [place], [address] Triglyceride [Mass/Vol] 151 mg/dL Normal [facility] Comment on above: Order Comment: Order Date: 12/31/23Order Info: 666-05 - BMPOrder Info: [id number] - LIPID Result Comment: The drugs N-Acetylcysteine and Metamizole may falsely depress this assay. Serum Triglycerides Reference Interval Normal <150 mg/dL Borderline high 150 - 199 mg/dL High 200 - 499 mg/dL Very High > or = 500 mg/dL Performed By: #### L 500.2500, L500.4100 ####[facility] [address] [place], [address] Protein+Creatinine Ratio,Uri neon 12-31-2023 PROT:CRE RATIO 102 mg/g CRE Normal 0-200 [facility] Comment on above: Performed By: #### L 501.0900 #### [facility] [address] [place], [address] Protein (U) [Mass/Vol] 6.9 mg/dL Normal <11.9 [facility] Comment on above: Performed By: #### L 501.0900 #### [facility] [address] [place], [address] UR CREAT 67.80 mg/dL Normal NO RANGE EST. [facility] Comment on above: Performed By: #### L 501.0900 #### [facility] [address] [place], [address] 12 Lead EKGon 12-12-2023 12 Lead EKG [facility] Cardiovascular Services [address] [place] [address] 12 Lead EKG 12/12/23 1216 MR#: [id number] Acct: [id number] Name: FRANCHESKA CROSS Rep #: [id number] : 1955 68 From: Tere David MD Attending Dr: Status: DEP ER Ordering Dr: Chica Marin DO Date: 12/12/23 Location: ED Sex: F C Admitted: Test Reason : HTN Blood Pressure : / mmHG Vent. Rate : 071 BPM Atrial Rate : 071 BPM P-R Int : 164 ms QRS Dur : 082 ms QT Int : 418 ms P-R-T Axes : 043 010 098 degrees QTc Int : 454 ms Normal sinus rhythm Minimal voltage criteria for LVH, may be normal variant ( R in aVL ) Nonspecific ST and T wave abnormality Abnormal ECG Confirmed by CHRISTOPHER GARCIA, SHARAN ([id number]), publications editor CHAR HASTINGS ([id number]) on 12/16/2023 8:43:14 AM Referred By: Confirmed By:AURORA DAVID MD 12/16/23 0843 Date Tere David MD CC: Dr. Janey Camp MD; Dr. Chica Marin DO Signed Normal [facility] Basic Metabolic Profile (BMP )on 12-12-2023 BUN/CRE 24.4 RATIO High 10-20 [facility] Comment on above: Order Comment: 'TROP ' Serial specimen #1, #2 or #3: 1 Performed By: #### L 501.0900 #### [facility] [address] [place], [address] CA,Total 9.5 mg/dL Normal 8.5-10.1 [facility] Comment on above: Order Comment: 'TROP ' Serial specimen #1, #2 or #3: 1 Performed By: #### L 501.0900 #### [facility] [address] [place], [address] Chloride [Moles/Vol] 107 mmol/L Normal 98-107 [facility] Comment on above: Order Comment: 'TROP ' Serial specimen #1, #2 or #3: 1 Performed By: #### L 501.0900 #### [facility] [address] [place], [address] CO2 [Moles/Vol] 29.0 mmol/L Normal 21.0-32.0 [facility] Comment on above: Order Comment: 'TROP ' Serial specimen #1, #2 or #3: 1 Performed By: #### L 501.0900 #### [facility] [address] [place], [address] Creatinine [Mass/Vol] 0.90 mg/dL Normal 0.55-1.02 [facility] Comment on above: Order Comment: 'TROP ' Serial specimen #1, #2 or #3: 1 Result Comment: The validity of the calculated GFR GFRAA in patients over 70 years has not been determined. Clinical correlation is essential. Performed By: #### L 501.0900 #### [facility] [address] [place], [address] ECRCL 68.70 ml/min Normal [facility] Comment on above: Order Comment: 'TROP ' Serial specimen #1, #2 or #3: 1 Performed By: #### L 501.0900 #### [facility] [address] [place], [address] EST GFR - AA 79 mL/min Normal >60 [facility] Comment on above: Order Comment: 'TROP ' Serial specimen #1, #2 or #3: 1 Result Comment: Afri can Brazilian GFR Calc Performed By: #### L 501.0900 #### [facility] [address] [place], [address] GAP 7 Normal 5-15 [facility] Comment on above: Order Comment: 'TROP ' Serial specimen #1, #2 or #3: 1 Performed By: #### L 501.0900 #### [facility] [address] [place], [address] GFR/1.73 sq M.predicted among non-blacks MDRD (S/P/Bld) [Vol rate/Area] 66 mL/min/{1.73_m2} Normal >60 [facility] Comment on above: Order Comment: 'TROP ' Serial specimen #1, #2 or #3: 1 Result Comment: Non- GFR Calc Performed By: #### L 501.0900 #### [facility] [address] [place], [address] Glucose [Mass/Vol] 111 mg/dL High 74-106 [facility] Comment on above: Order Comment: 'TROP ' Serial specimen #1, #2 or #3: 1 Result Comment: Fast ing Glucose result from 100 to 125 mg/dL suggests IMPAIRED HOMEOSTASIS per A.D.A. criteria. Performed By: #### L 501.0900 #### [facility] [address] [place], [address] Potassium [Moles/Vol] 3.4 mmol/L Low 3.5-5.1 [facility] Comment on above: Order Comment: 'TROP ' Serial specimen #1, #2 or #3: 1 Performed By: #### L 501.0900 #### [facility] [address] [place], [address] Sodium [Moles/Vol] 143 mmol/L Normal 136-145 [facility] Comment on above: Order Comment: 'TROP ' Serial specimen #1, #2 or #3: 1 Performed By: #### L 501.0900 #### [facility] [address] [place], [address] Urea nitrogen [Mass/Vol] 22 mg/dL High 7-18 [facility] Comment on above: Order Comment: 'TROP ' Serial specimen #1, #2 or #3: 1 Performed By: #### L 501.0900 #### [facility] [address] [place], [address] CBC W/Diff, Automatedon 08-0 8-2024 Absolute Lymph 3.47 X10 3/uL Normal 0.83-4.51 [facility] Comment on above: Performed By: #### L 501.0900 #### [facility] [address] [place], [address] Absolute Neut 6.5 X10 3/uL Normal 2.0-7.7 [facility] Comment on above: Performed By: #### L 501.0900 #### [facility] [address] [place], [address] Basophils/100 WBC (Bld) 0.6 % Normal 0-1 [facility] Comment on above: Performed By: #### L 501.0900 #### [facility] [address] [place], [address] Eosinophils/100 WBC (Bld) 3.1 % Normal 0-5 [facility] Comment on above: Performed By: #### L 501.0900 #### [facility] [address] [place], [address] Erythrocyte distribution width (RBC) [Ratio] 14.4 % Normal 11.6-14.6 [facility] Comment on above: Performed By: #### L 501.0900 #### [facility] [address] [place], [address] Hematocrit (Bld) [Volume fraction] 42.6 % Normal 37-47 [facility] Comment on above: Performed By: #### L 501.0900 #### [facility] [address] [place], [address] Hemoglobin (Bld) [Mass/Vol] 13.7 g/dL Normal 12.0-15.0 [facility] Comment on above: Performed By: #### L 501.0900 #### [facility] [address] [place], [address] IG% 0.400 Normal 0.0-0.9 [facility] Comment on above: Result Comment: IG% - Immature Granulocytes (promyelocytes, myelocytes and metamyelocytes) > 1% indicates that a LEFT SHIFT is Present. Performed By: #### L 501.0900 #### [facility] [address] [place], [address] Lymphocytes/100 WBC (Bld) 31.2 % Normal 19-41 [facility] Comment on above: Performed By: #### L 501.0900 #### [facility] [address] [place], [address] MCH (RBC) [Entitic mass] 28.8 pg Normal 27.0-32.0 [facility] Comment on above: Performed By: #### L 501.0900 #### [facility] [address] [place], [address] MCHC (RBC) [Mass/Vol] 32.2 g/dL Normal 32-36 [facility] Comment on above: Performed By: #### L 501.0900 #### [facility] [address] [place], [address] MCV (RBC) [Entitic vol] 89.5 fL Normal 81-99 [facility] Comment on above: Performed By: #### L 501.0900 #### [facility] [address] [place], [address] Monocytes/100 WBC (Bld) 6.0 % Normal 0-10 [facility] Comment on above: Performed By: #### L 501.0900 #### [facility] [address] [place], [address] Neutrophils/100 WBC (Bld) 58.7 % Normal 47-70 [facility] Comment on above: Performed By: #### L 501.0900 #### [facility] [address] [place], [address] Nucleated RBC (Bld) [#/Vol] 0 10*3/uL Normal 0-5 [facility] Comment on above: Performed By: #### L 501.0900 #### [facility] [address] [place], [address] Platelet mean volume (Bld) [Entitic vol] 9.9 fL Normal 6.2-12.0 [facility] Comment on above: Performed By: #### L 501.0900 #### [facility] [address] [place], [address] Platelets (Bld) [#/Vol] 333 10*3/uL Normal 150-450 [facility] Comment on above: Performed By: #### L 501.0900 #### [facility] [address] [place], [address] RBC (Bld) [#/Vol] 4.76 10*6/uL Normal 4.2-5.4 [facility] Comment on above: Performed By: #### L 501.0900 #### [facility] [address] [place], [address] RDW SD 47.3 fl High 35.1-43.9 [facility] Comment on above: Performed By: #### L 501.0900 #### [facility] [address] [place], [address] WBC (Bld) [#/Vol] 11.1 10*3/uL [facility] 4.4-11.0 [facility] Comment on above: Performed By: #### L 501.0900 #### [facility] [address] [place], [place], [address] Emergency Department Summary on 12-12-2023 Emergency Department Summary [facility] Medical Records Department [address] [place] [address] Emergency Department Summary 12/12/23 MR#: [id number] Acct: [id number] Name: FRANCHESKA CROSS Rep #: [id number] : 1955 68 From: Chica Marin DO PCP: Dr. Janey Camp MD Status:DEP ER Location: ED HPI History of Present Illness Chief Complaint: Hypertension Detail of Chief Complaint: High blood pressure Informant: patient Narrative Narrative: Patient presents to the emergency department with complaint of elevated blood pressure. Patient states that he she was at the [facility] because she needed to have a uterine biopsy and when they checked her blood pressure was elevated. After the biopsy they told her to come get evaluated in the emergency department. Patient has history of hypertension and does take lisinopril with hydrochlorothiazide and it and normally takes 2 tablets every morning of the 20 mg over 12.5 mg dose. Patient otherwise denies complaints other than she is feeling stressed. She denies chest pain or shortness of breath. Denies headaches. Denies recent illness. She denies any new medications. Patient states that at home typically when she checks her blood pressure it is in the 160s systolic over about 100 diastolic. [facility] Medical History Incisional hernia of anterior abdominal wall without obstruction or gangrene Arthritis Heart murmur Home Medications ???Medication ???Instructions ???Recorded ???Last Taken ???Type aspirin 81 mg tablet,delayed 81 mg PO QDAY 05/15/17 05/19/17 History release (Adult Low Dose Aspirin) calcium carbonate 600 mg-vitamin 1 cap PO ONCE 05/15/17 05/19/17 History D3 5 mcg (200 unit) capsule lisinopril 20 1 tab PO DAILY 09/28/23 Unknown History mg-hydrochlorothiazide 12.5 mg tablet metformin 500 mg tablet 500 mg PO BID #60 tabs 09/28/23 Unknown Rx Allergy/AdvReac Type Severity Reaction Status Date / Time hydrocodone (From Vicodin) Allergy Unknown Unknown Verified 12/12/23 11:47 Family History Mother Hypertension Father Diabetes Son Seizures Surgical History History of incisional hernia repair Dislocation, shoulder closed S/P appendectomy S/P cholecystectomy Social History Smoking Status: Never smoker second hand exposure: No alcohol intake: never substance use type: does not use caffeine: No what type of physical activity do you participate in: none frequency: does not exercise seatbelt use: always ROS ROS ED ROS Narrative Hypertension Review of Systems ROS Unobtainable: other Constitutional Constitutional ED: Reports lethargy; Denies chills, fever(s), sweats or weight loss Eyes Eyes: Denies blurry vision, change in vision or diplopia ENT ENT ED: Denies rhinorrhea or sore throat Cardiovascular Cardiovascular: Denies chest pain, orthopnea or racing heartbeat Respiratory/Chest Respiratory/Chest: Denies cough, dyspnea, dyspnea on exertion, orthopnea or sputum Gastrointestinal Gastrointestinal: Denies abdominal pain, diarrhea, nausea or vomiting Genitourinary Genitourinary ED: Denies dysuria, hematuria or urinary frequency Musculoskeletal Musculoskeletal: Denies arthralgias, back pain, myalgias or neck pain Integumentary Denies abscess, Abrasions or rash Neurologic Neurologic: Denies headache(s) or weakness Psychiatric Psychiatric: Denies anxiety, depression or suicidal thoughts Endocrine Endocrinology: Denies polydipsia, polyphagia or polyuria Hematologic/Lymphatic Hematologic/Lymphatic: Denies easy bleeding, easy bruising or lymphadenopathy Allergic/Immunologic Allergic/Immunologic ED: Denies mouth swelling, tongue swelling or urticaria EXAM Physical Exam Const Vital Signs: 12/12/23 11:47 12/12/23 11:47 12/12/23 12:01 Temperature 97 F L Temperature Source Temporal Pulse Rate 76 78 Respiratory Rate 14 16 Respiratory Pattern Normal Blood Pressure 223/123 H 209/121 H Blood Pressure Mean 156 150 Pulse Ox 96 96 Oxygen Delivery Method Room Air Room Air Positive well nourished and well developed General Appearance ED: well developed and NAD HEENT Reports TM's clear and moist mucous membranes normocephalic and atraumatic; Negative for trauma or tenderness Tympanic Membrane ED: Yes TM's clear Eyes PERRL and EOMs intact bilaterally General Eye ED: Negative for pale conjunctiva or scleral icterus Neck no lymphadenopathy, supple and no JVD General: Negative for tenderness Chest Wall inspection of chest normal and palpation of chest normal Chest: Negative for tenderness Resp normal respiratory effort and clear to aus (more content not included)... Normal [facility] L501.4020on 12-12-2023 TROPONIN-I HS 11 pg/mL Normal 3.0-54.0 [facility] Comment on above: Order Comment: 'TROP ' Serial specimen #1, #2 or #3: 1 Result Comment: Rosalba reid Note: New Test Units and Gender Specific Reference Ranges. For more information see Policy Stat Procedure Menno High Sensitivity Troponin (TNIH) and attachments. Performed By: #### L 501.0900 #### [facility] [address] [place], [address] User Acceptance Tester Office Visit Reporton 12-12-2023 User Acceptance Tester Office Visit Report [facility] [address] [place] [address] OFFICE VISIT Date of Service: 12/12/23 MR#: [id number] Acct: [id number] Name: FRANCHESKA CROSS Rep #: [id number] : 1955 Provider: NAMRATA ca Age/Sex: 68/F [place] [facility] [place]: Signed Intake Vital Signs 09/28/23 19:14 12/12/23 10:53 12/12/23 11:03 Height 5 ft 6 in 5 ft 6 in 5 ft 6 in Weight: 216 lb 6 oz BMI 34.9 BP 184/108 H Intake Visit Reasons: [facility]MB REFERRAL [place] [employer] Required: No Is patient in pain?: No Allergies hydrocodone (From Vicodin) Allergy (Unknown, Verified 12/12/23 11:47) Unknown Medications ???Medication ???Instructions ???Recorded ???Confirmed ???Type aspirin 81 mg tablet,delayed 81 mg PO QDAY 05/15/17 12/12/23 History release (Adult Low Dose Aspirin) calcium carbonate 600 mg-vitamin 1 cap PO ONCE 05/15/17 12/12/23 History D3 5 mcg (200 unit) capsule lisinopril 20 1 tab PO DAILY 09/28/23 12/12/23 History mg-hydrochlorothiazide 12.5 mg tablet metformin 500 mg tablet 500 mg PO BID #60 tabs 09/28/23 12/12/23 Rx Is last menstrual period known: No Post menopausal: Yes Patient : No : No Current gender identity: [facility] Medical History Incisional hernia of anterior abdominal wall without obstruction or gangrene Arthritis Heart murmur Surgical History History of incisional hernia repair Dislocation, shoulder closed S/P appendectomy S/P cholecystectomy Family History Mother Hypertension Father Diabetes Son Seizures Social History Smoking Status: Never smoker second hand exposure: No alcohol intake: never substance use type: does not use caffeine: No what type of physical activity do you participate in: none frequency: does not exercise seatbelt use: always HPI [facility] REFERRAL [place] Details: FRANCHESKA CROSS is a 68 year old who presents for endometrial biopsy. Has had vaginal bleeding that has been heavy off and on for a month but now has not had any bleeding for a month. Ref to from PCP and had US indicating 28mm endometrial lining and questionable cervical mass. Note that patient's blood pressure significantly elevated. She states she has been taking BP med since early October. She denies headaches. She was seen in ED for this in September and then saw PCP. She has not been checking her BP as she just returned from a month long trip to [place]. ROS Const Constitutional: Reports system reviewed and no additional complaints, except as documented Eyes Eyes: Reports system reviewed and no additional complaints, except as documented GI GI: Denies abdominal pain or change in bowel habits : Reports as per HPI Exam Const General: cooperative and no acute distress Nutritional Appearance: obese Orientation: oriented x3 GI Palpation: soft External Female Exam: normal external appearance Speculum Exam - Vagina: normal appearance of the vagina and normal vaginal discharge Speculum Exam - Cervix: normal appearance of the cervix Bimanual Exam- Vagina Uterus: non-tender and enlarged Bimanual Exam- Adnexa, other: normal adnexae, no masses and non-tender Office Procedures Endometrial Biopsy Endometrial Biopsy Test: Yes Not Applicable Consent Signed: Yes Time out checklist: patient, procedure, site marked/identified, positioning of patient, supplies available, allergies confirmed and team agrees on procedure Time out time: 11:30 tenaculum used: No dilator used: No Details: Cervix prepped with betadine and pipelle inserted 10cm into uterus without complication. Specimen(2) passes obtained and sent to lab for analysis. All instruments removed from vagina without complications. Excellent hemostasis noted. Coding Level of Care Code Attention Anna Diagnoses Postmenopausal bleeding N95.0 Thickened endometrium R93.89 Primary hypertension I10 Hypertension type: primary hypertension CPT Codes Endometrial Biopsy (78428) Assessment and Plan Assessment and Plan (1) Postmenopausal bleeding: Status: Acute Comment: EMB pending (2) Thickened endometrium: Status: Acute Comment: 23 mm (3) HTN (hypertension): Status: Chronic Qualifiers: Hypertension type: primary hypertension Qualified Code(s): I10 - Essential (primary) hypertension Orders: Orders Endometrial Biopsy Today Plan Reviewed S S infection. Discussed with patient my high concern for endometrial cancer but if it is not, she will still need D C hysteroscopy due to thickness of lining. To ED for hypertensive crisi (more content not included)... Normal [facility] Surgery Specimen Level Sandi 12-12-2023 Surgery Specimen Level IV ---- Patient Age/Sex Location Account Attending Physician ---- HIGHFRANCHESKA SERGE 68/F [facility] [id number] NAMRATA Aguilar ---- Specimen: [id number] Received: 12/12/23 Status: MARISA Cisneros Num: [id number] Spec Type: VERONICA BARRETT/C Aly Dr: NAMRATA Aguilar HEADER OPERATION: Endometrial biopsy PRE-OP DIAGNOSIS: Postmenopausal bleeding TISSUE SUBMITTED: Endometrial lining ---- MICROSCOPIC DIAGNOSIS Endometrial biopsy: Simple cystic hyperplasia without atypia. See comment. 12/16/2023 COMMENT Clinical correlation and appropriate follow up are necessary. Case has been reviewed in consultation with Dr. Ware who concurs with the above diagnosis. IDC:AM MICROSCOPIC DESCRIPTION Slides are reviewed. GROSS DESCRIPTION Received is one container labeled with the patient's name and not further designated. The specimen consists of multiple irregular fragments of hemorrhagic soft tissue mixed with mucoid tissue that in aggregate measure 2.5 x 1.8 x 0.1 cm. The specimen is totally submitted in one cassette. GWEN/ 12/13/2023 TC:5 CPT:34859 ---- Patient Age/Sex Location Account Attending Physician ---- FRANCHESKA CROSS 68/F LABSPEC [id number] NAMRATA Aguilar ---- Signed (signature on file) Dr. José Miguel Lujan MD 12/16/23 1109 ---- Normal [facility] Comment on above: Performed By: #### L 501.4405, L500.4100, L501.4100 #### [facility] [place], [address] Urinalysis, Completeon 12-11 EPI,SQUAMOUS 5-10 SEEN Normal 5-10 [facility] Comment on above: Order Comment: CLEAN CATCH Performed By: #### L 400.0001 #### [facility] [address] [place], [address] Mucus Ql (Urine sed) 1+ /hpf Normal [facility] Comment on above: Order Comment: CLEAN CATCH Performed By: #### L [id number] #### [facility] [address] [place], [address] WBC 0-5 SEEN Normal 0-5 [facility] Comment on above: Order Comment: CLEAN CATCH Performed By: #### L 400.0001 #### [facility] [address] [place], [address] BACTERIA 0 SEEN Normal None Seen [facility] Comment on above: Order Comment: CLEAN CATCH Performed By: #### L [id number] #### [facility] [address] [place], [address] RBC 0 SEEN Normal 0-5 [facility] Comment on above: Order Comment: CLEAN CATCH Performed By: #### L [id number] #### [facility] [address] [place], [address] Basophil percentageon 2021 Chloride [Moles/Vol] 107 mmol/L 98-107 [facility] Work Phone: Cholesterol [Mass/Vol] 205 mg/dL <200 [facility] Work Phone: Comment on above: <200 mg/dL Desirable 200-240 mg/dL Borderline >240 mg/dL High Risk Glucose [Mass/Vol] 147 mg/dL 74-106 [facility] Work Phone: Comment on above: Fasting Glucose resu lt greater than or equal to 126 mg/dL suggests DIABETES MELLITUS per A.D.A. criteria. Potassium [Moles/Vol] 3.7 mmol/L 3.5-5.1 [facility] Work Phone: Sodium [Moles/Vol] 142 mmol/L 136-145 [facility] Work Phone: Triglyceride [Mass/Vol] 206 mg/dL <199 [facility] Work Phone: Comment on above: The drugs N-Acetylcy steine and Metamizole may falsely depress this assay.Serum Triglycerides Reference Interval Normal <150 mg/dL Borderline high 150 - 199 mg/dL High 200 - 499 mg/dL Very High > or = 500 mg/dL Laboratory - Chemistry and C hemistry - challengeon 10-23-2021 CO2 [Moles/Vol] 29.0 mmol/L 21.0-32.0 [facility] Work Phone: Urea nitrogen/Creatinine [Mass ratio] 14.8 mg/mg 10- [facility] Work Phone: No Panel Informationon 10-23 Estimated GFR (MDRD) Amer 65 mL/min >60 [facility] Work Phone: Comment on above: GFR Calc Estimated GFR (MDRD) Non-Af Amer 54 mL/min >60 [facility] Work Phone: Comment on above: Non- GFR Calc Serum or plasma calcium martin urement (mass/volume)on 10-23-2021 Calcium [Mass/Vol] 9.3 mg/dL 8.5-10.1 [facility] Work Phone: [phone] Serum or plasma cholesterol in HDL measurement (mass/volume)on 10-23-2021 Cholesterol in HDL [Mass/Vol] 44 mg/dL >40 [facility] Work Phone: Comment on above: The drugs N-Acetylcy steine and Metamizole may falsely depress this assay. Reference Range HDL <40 mg/dL Low HDL Cholesterol HDL >or= 60 mg/dL High HDL Cholesterol Serum or plasma cholesterol in VLDL measurement (mass/volume)on 10-23-2021 Cholesterol in VLDL [Mass/Vol] 41 mg/dL 5-40 [facility] Work Phone: [phone] Serum or plasma creatinine m easurement (mass/volume)on 10-23-2021 Creatinine [Mass/Vol] 1.08 mg/dL 0.55-1.02 [facility] Work Phone: Comment on above: The validity of the calculated GFR & GFRAA in patients over 70 years has not been determined. Clinical correlation is essential. Serum or plasma low density lipoprotein (LDL) cholesterol measurement (mass/volume)on 10-23-2021 Cholesterol in LDL [Mass/Vol] 120 mg/dL 0-130 [facility] Work Phone: Serum or plasma urea nitroge n measurement (mass/volume)on 10-23-2021 Urea nitrogen [Mass/Vol] 16 mg/dL 7-18 [facility] Work Phone: Thin prep Papanicolaou smear with manual screeningon 10-23-2021 Thin prep Papanicolaou smear with manual screening 6 5-15 [facility] Work Phone: Vital Signs Date Time Vital Sign Value Performing Clinician Ghazalai jennay 11-09-2024 10:19-0400 Body height 167.[address] Janey Camp MD Work Phone: [facility] 11-09-2024 10:17-0400 Body mass index (BMI) [Ratio] 32.5 kg/m2 Dr. Janey Camp MD Work Phone: [facility] 11-09-2024 10:17-0400 Body weight 91.[address] Jnaey Camp MD Work Phone: [facility] 11-09-2024 10:17-0400 Diastolic blood pressure 91 mm[Hg] Dr. Janey Camp MD Work Phone: [facility] 11-09-2024 10:17-0400 Systolic blood pressure 145 mm[Hg] Dr. Janey Camp MD Work Phone: [facility] 10-13-2024 10:44-0400 Body height 167.[address] Janey Camp MD Work Phone: [facility] 10-13-2024 10:36-0400 Body mass index (BMI) [Ratio] 31.9 kg/m2 Dr. Janey Camp MD Work Phone: 6(057)669-994098 [place] [address] 10-13-2024 10:36-0400 Body weight 89.[address] Janey Camp MD Work Phone: 8(142)948-449708 [place] [address] 10-13-2024 10:36-0400 Diastolic blood pressure 80 mm[Hg] Dr. Janey Camp MD Work Phone: 5(130)160-661108 [place] [address] 10-13-2024 10:36-0400 Systolic blood pressure 127 mm[Hg] Dr. Janey Camp MD Work Phone: 3(960)291-076808 [place] [address] 09-30-2024 08:18-0400 Body temperature 98.1 [degF] Dr. Janey Camp MD Work Phone: 1(860)615-592508 [place] [address] 09-30-2024 08:18-0400 Diastolic blood pressure 82 mm[Hg] Dr. Janey Camp MD Work Phone: 4(147)563-117008 [place] [address] 09-30-2024 08:18-0400 Heart rate 74 /min Dr. Janey Camp MD Work Phone: 6(591)975-517008 [place] [address] 09-30-2024 08:18-0400 Respiratory rate 17 /min Dr. Janey Camp MD Work Phone: 8(542)353-432308 [place] [address] 09-30-2024 08:18-0400 SaO2% (BldA) [Mass fraction] 95 % Dr. Janey Camp MD Work Phone: 3(013)035-449108 [place] [address] 09-30-2024 08:18-0400 Systolic blood pressure 121 mm[Hg] Dr. Janey Camp MD Work Phone: 8(916)192-565108 [place] [address] 09-30-2024 05:20-0400 Inhaled oxygen flow rate 2 L/min Dr. Janey Camp MD Work Phone: 0(114)614-181408 [place] [address] 09-29-2024 20:41-0400 Body temperature 98 [degF] Dr. Janey Camp MD Work Phone: 7(748)660-653508 [place] [address] 09-29-2024 20:41-0400 Diastolic blood pressure 69 mm[Hg] Dr. Janey Camp MD Work Phone: 9(495)700-675198 [place] [address] 09-29-2024 20:41-0400 Heart rate 80 /min Dr. Janey Camp MD Work Phone: 3(852)114-470608 [place] [address] 09-29-2024 20:41-0400 Respiratory rate 16 /min Dr. Janey Camp MD Work Phone: 4(439)182-004408 [place] [address] 09-29-2024 20:41-0400 SaO2% (BldA) [Mass fraction] 96 % Dr. Janey Camp MD Work Phone: 4(244)700-219708 [place] [address] 09-29-2024 20:41-0400 Systolic blood pressure 130 mm[Hg] Dr. Janey Camp MD Work Phone: 6(214)546-492308 [place] [address] 09-29-2024 19:45-0400 Inhaled oxygen flow rate 2 L/min Dr. Janey Camp MD Work Phone: 0(251)700-231908 [place] [address] 09-29-2024 15:49-0400 Body height 167.[address] Janey Camp MD Work Phone: 9(715)312-082808 [place] [address] 09-29-2024 15:49-0400 Body mass index (BMI) [Ratio] 32.4 kg/m2 Dr. Janey Camp MD Work Phone: 6(846)925-965608 [place] [address] 09-29-2024 15:49-0400 Body weight 91.[address] Janey Camp MD Work Phone: 4(550)132-299508 [place] [address] 09-23-2024 09:38-0400 Body height 167.[address] Janey Camp MD Work Phone: 5(030)616-746008 [place] [address] 09-23-2024 09:37-0400 Body mass index (BMI) [Ratio] 32 kg/m2 Dr. Janey Camp MD Work Phone: 5(194)295-535008 [place] [address] 09-23-2024 09:37-0400 Body weight 89.[address] Janey Camp MD Work Phone: 4(303)514-187808 [place] [address] 09-23-2024 09:37-0400 Diastolic blood pressure 75 mm[Hg] Dr. Janey Camp MD Work Phone: [facility] 09-23-2024 09:37-0400 Systolic blood pressure 113 mm[Hg] Dr. Janey Camp MD Work Phone: [facility] 08-14-2024 13:54-0400 Body mass index (BMI) [Ratio] 31.6 kg/m2 Dr. Janey Camp MD Work Phone: [facility] 08-14-2024 13:54-0400 Body weight 88.[address] Janey Camp MD Work Phone: [facility] 08-14-2024 13:54-0400 Diastolic blood pressure 70 mm[Hg] Dr. Janey Camp MD Work Phone: [facility] 08-14-2024 13:54-0400 Systolic blood pressure 116 mm[Hg] Dr. Janey Camp MD Work Phone: [facility] 07-22-2024 10:23-0400 Body height 167.[address] Janey Camp MD Work Phone: [facility] 07-22-2024 10:23-0400 Body mass index (BMI) [Ratio] 31.8 kg/m2 Dr. Janey Camp MD Work Phone: [facility] 07-22-2024 10:23-0400 Body weight 89.[address] Janey Camp MD Work Phone: [facility] 07-22-2024 10:23-0400 Diastolic blood pressure 84 mm[Hg] Dr. Janey Camp MD Work Phone: [facility] 07-22-2024 10:23-0400 Systolic blood pressure 133 mm[Hg] Dr. Janey Camp MD Work Phone: [facility] Encounters Encounter Date Encounter Type Care Provider Facility Start: 11-27-2024 ambulatory Janey Camp Facility: [facility] Start: 11-09-2024 End: 11-09-[address] Allyson Hercules DO -[facility] Work Phone: Start: 11-09-2024 End: 11-09-[address] Janey Camp MD Work Phone: -[facility] Start: 10-16-2024 Encounter for other preprocedural examination Allyson Hercules [facility] Start: 10-13-2024 End: 10-13-2024 Patient encounter procedure Yen Felder [employer]-C -[facility] Work Phone: Start: 10-13-2024 End: 10-13-[address] Janey Camp MD Work Phone: [facility] Work Phone: Start: 09-30-2024 Non-patient / Non-visit Dr. Maged Hercules DO [facility] Start: 09-29-2024 ambulatory Janey Camp Facility: [facility] Start: 09-29-2024 End: 09-30-2024 Evaluation and management of inpatient Dr. Allyson Hercules DO -[facility] 3 Work Phone: Start: 09-29-2024 End: 09-30-[address] Janey Camp MD Work Phone: [facility] Work Phone: Start: 09-29-2024 ambulatory Janey Camp Facility: [facility] Start: 09-29-2024 Non-patient / Non-visit Dr. Maged Hercules DO [facility] Start: 09-29-2024 End: 09-30-2024 Admission to same day surgery center Dr. Allyson Hercules DO -[facility] Start: 09-29-2024 End: 09-30-[address] Janey Camp MD Work Phone: [facility] Work Phone: Start: 09-23-2024 End: 09-23-2024 ambulatory Janey Camp Facility:[facility] Start: 09-23-2024 End: 09-23-2024 Non-patient / Non-visit Dr. Maurice Mac MD -[facility] Work Phone: Start: 09-23-2024 End: 09-23-[address] Allyson Hercules DO -[facility] Work Phone: Start: 09-23-2024 End: 09-23-[address] Janey Camp MD Work Phone: [facility] Work Phone: Start: 09-23-2024 End: 09-23-[address] Janey Camp MD Work Phone: [facility] Work Phone: Start: 09-23-2024 End: 09-23-[address] Allyson Hercules DO -[facility] Work Phone: Start: 09-23-2024 End: 09-23-2024 ambulatory Janey Camp Facility:[facility] Start: 08-14-2024 End: 08-14-[address] Allyson Hercules DO -[facility] Work Phone: Start: 08-14-2024 End: 08-14-2024 ambulatory Janey Camp Facility:[facility] Start: 08-05-2024 End: 08-05-[address] Janey Camp MD Work Phone: [facility] Work Phone: Start: 08-05-2024 End: 08-05-[address] Selina Beal MD -Lab, [facility] Start: 08-05-2024 End: 08-05-2024 ambulatory Janey Camp Facility:[facility] Start: 07-27-2024 End: 07-27-[address] Janey Camp MD Work Phone: [facility] Work Phone: Start: 07-27-2024 End: 07-27-[address] Selina Beal MD -Ultrasound, [facility] Work Phone: Start: 07-27-2024 End: 07-27-2024 ambulatory Selina Beal Facility:[facility] Start: 07-22-2024 End: 07-22-[address] Janey Camp MD Work Phone: [facility] Work Phone: Start: 07-22-2024 End: 07-22-[address] Selina Beal MD -Laboratory, Specimen Work Phone: Start: 07-22-2024 End: 07-22-[address] Selina Beal MD -[facility] Work Phone: Start: 07-22-2024 End: 07-22-2024 ambulatory Janey Camp Facility:[facility] Start: 07-22-2024 End: 07-22-2024 ambulatory Selina Beal Facility:[facility] Start: 06-03-2024 Encounter for preprocedural cardiovascular examination Emerson [facility] Start: 05-22-2024 Encounter for preprocedural respiratory examination [facility] Start: 05-18-2024 End: 05-18-[address] Emerson Miranda MD -Laboratory, Specimen Work Phone: Start: 05-18-2024 End: 05-18-2024 ambulatory Emerson [place] Facility:[facility] Start: 05-12-2024 End: 05-12-2024 ambulatory Emerson [place] Facility:[facility] Start: 05-12-2024 End: 05-12-2024 Non-patient / Non-visit Dr. Marcelo Vizcaino MD -[facility] Work Phone: Start: 05-12-2024 End: 05-12-[address] Emerson Miranda MD -Pulmonary Services/Neurology Work Phone: Start: 05-12-2024 End: 05-12-2024 ambulatory Emerson [place] Facility:[facility] Start: 04-21-2024 End: 04-21-[address] Emerson Miranda MD -Laboratory Work Phone: Start: 04-21-2024 End: 04-21-2024 ambulatory Emerson Miranda Facility:[facility] Start: 04-08-2024 Encounter for other preprocedural examination Janey S Jolliff [facility] Start: 03-31-2024 End: 03-31-[address] Emerson Miranda MD -Cat Scan, [facility] Work Phone: Start: 03-31-2024 End: 03-31-2024 ambulatory Emerson Miranda Facility:[facility] Start: 03-13-2024 End: 03-13-2024 ambulatory Janey S Jolliff Facility:[facility] Start: 02-19-2024 End: 02-19-2024 ambulatory Janey S Jolliff Facility:[facility] Start: 02-04-2024 End: 02-04-2024 ambulatory Janey S Jolliff Facility:[facility] Start: 02-04-2024 ambulatory Selina Hernandezondina Grayson lity:[facility] Start: 01-30-2024 End: 01-30-2024 ambulatory Marcelo Vizcaino Facility:[facility] Start: 01-24-2024 End: 01-24-2024 ambulatory Janey S Jolliff Facility:[facility] Start: 12-31-2023 End: 12-31-2023 ambulatory Janey S Jolliff Facility:[facility] Start: 12-12-2023 End: 12-12-2023 Emergency department patient visit Chica Marin Facility:[facility] Start: 12-12-2023 End: 12-12-2023 ambulatory Yen Felder [employer] Facility:[facility] Start: 12-12-2023 End: 12-12-2023 ambulatory Yen Felder [employer] Facility:[facility] Start: 07-22-2023 End: 07-22-2023 ambulatory [facility] Work Phone: Start: 07-22-2023 End: 07-22-2023 Patient encounter procedure [facility]-Radiology, [place] Work Phone: Start: 10-23-2021 End: 10-23-2021 [facility] Procedures Date Procedure Procedure Detail Performing Clinician Start: 09-30-[address] Janey Camp MD Work Phone: Start: 09-29-2024 Total abdominal hysterectomy with bilateral salpingo-oophorectomy Dr. Janey Camp MD Work Phone: Start: 09-23-2024 MRI of pelvis with contrast Dr. Janey Camp MD Work Phone: Start: 07-27-[address] Janey Camp MD Work Phone: Start: 07-22-2024 Liquid based cervica l cytology screening Dr. Janey Camp MD Work Phone: Comment on above: NEGATIVE FOR INTRAEP ITHELIAL LESION OR MALIGNANCY.CELLULAR CHANGES ASSOCIATED WITH ATROPHY ARE PRESENT. This liquid based Th inPrep(R) pap test was screened withthe use of an image guided system. Start: 04-21-2024 X-ray of chest, PA a nd lateral views Dr. Janey Camp MD Work Phone: Start: 03-31-2024 MRI of lower extremity Dr. Janey Camp MD Work Phone: Start: 07-22-2023 Plain x-ray of pelvi s and lower extremity Start: 07-22-2023 End: 07-22-2023 Radiologic examination of knee Start: 10-23-2021 Radiologic examinati on of knee H/O: surgery Status post hyst erectomy with oophorectomy Dr. Janey Camp MD Work Phone: Comment on above: Robotic hyst, lysis of adhesions, cysto, and RSO. being admitted hospital day for adhesions. H/O: surgery Status post hyst erectomy with oophorectomy Dr. Allyson Hercules DO H/O: surgery Status post hyst erectomy with oophorectomy Dr. Allyson Hercules DO H/O: surgery Status post hyst erectomy with oophorectomy Yen Felder [employer]C History of appendectomy S/P appendectomy History of cholecystectomy S/P cholecystectomy Plan of Treatment Date Care Activity Detail Author Start: 09-30-2024 Introduction of urinary catheter [facility] Start: 09-30-2024 Patient discharge [facility] Start: 09-30-2024 Complete blood count [facility] Start: 09-29-2024 Ambulation therapy management [facility] Start: 09-29-2024 Application of intermittent pneumatic compression device [facility] Start: 09-29-2024 Elevation of head of bed [facility] Start: 09-29-2024 End: 09-29-2024 Following clinical pathway protocol [facility] Start: 09-29-2024 Incentive spirometry [facility] Start: 09-29-2024 Measuring intake and output [facility] Start: 09-29-2024 Notification of physician [facility] Start: 09-29-2024 Oxygen therapy [facility] Start: 09-29-2024 Procedures relating to eating and drinking [facility] Start: 09-29-2024 Taking patient vital signs [facility] Start: 09-29-2024 Wound care [facility] Start: 09-29-2024 [facility] Start: 09-29-2024 Introduction of urinary catheter [facility] Start: 09-29-2024 Anesthesia intraperitoneal lower abd w/laps nos ANESTH SURG LOWER ABDOMEN [facility] Start: 09-29-2024 Laps total hysterect 250 gm/< w/rmvl tube/ovary TLH W/T/O 250 G OR LESS [facility] Start: 09-29-2024 Admission procedure [facility] Start: 09-29-2024 Patient referral to dietitian [facility] Start: 09-23-2024 CBC W Auto Differential panel - Blood [facility] Start: 09-23-2024 MRI of pelvis with contrast Pelvis W/WO Contrast [facility] Start: 07-27-2024 Transvaginal echography Transvaginal Non- [facility] Start: 07-27-2024 US Pelvis transvaginal [facility] Alanine aminotransfe rase [Enzymatic activity/volume] in Serum or Plasma [facility] Albumin [Mass/volume ] in Serum or Plasma [facility] Alkaline phosphatase [Enzymatic activity/volume] in Serum or Plasma [facility] Anion gap in Serum or Plasma [facility] Bilirubin, total measurement [facility] BUN/Creatinine ratio [facility] Calcium [Mass/volume ] in Serum or Plasma [facility] Carbon dioxide, tota l [Moles/volume] in Central venous blood [facility] Creatinine [Mass/vol ume] in Serum or Plasma [facility] Electrocardiographic procedure [facility] Erythrocyte mean cor puscular volume determination [facility] Glucose [Mass/volume ] in Serum or Plasma [facility] Hematocrit [Volume F raction] of Blood [facility] Hemoglobin [Mass/vol ume] in Blood [facility] Leukocytes [#/volume] in Blood [facility] Mean corpuscular hem oglobin concentration determination [facility] Mean corpuscular hem oglobin determination [facility] Measurement of renal function [facility] MG Breast - bilatera l Screening [facility] Patient referral [facility] Work Phone: Platelets [#/volume] in Blood [facility] Potassium measurement [facility] Red blood cell count [facility] Red cell distributio n width determination [facility] Serum chloride measurement [facility] Sodium measurement [facility] Total protein measurement [facility] Urea nitrogen [Mass/ volume] in Serum or [facility] Payers Date Payer Category Payer Self-pay [id number] 2023 Medicare [id number] 2023 Unknown [id number] Unknown [facility] PACKAGE PLAN [id number] Unknown [id number] 2.16.8 40.1.226969.3.579.2.462 Unknown [id number] 2.16.8 40.1.850691.3.579.2.462 Unknown [id number] 2.16.8 40.1.452024.3.579.2.462 Unknown [id number] 2.16.8 40.1.829418.3.579.2.462 Unknown [id number] 2.16.8 40.1.905747.3.579.2.462 Unknown [id number] 2.16.8 40.1.679243.3.579.2.462 Unknown [id number] 2.16.8 40.1.634758.3.579.2.462 Unknown [id number] 2.16.8 40.1.224098.3.579.2.462 Unknown [id number] 2.16.8 40.1.192124.3.579.2.462 Unknown [id number] 2.16.8 40.1.647198.3.579.2.462 Unknown [id number] 2.16.8 40.1.089282.3.579.2.462 Unknown [id number] 2.16.8 40.1.874791.3.579.2.462 Unknown [id number] 2.16.8 40.1.756948.3.579.2.462 Unknown [id number] 2.16.8 40.1.781232.3.579.2.462 Unknown [id number] 2.16.8 40.1.168223.3.579.2.462 Unknown [id number] 2.16.8 40.1.652727.3.579.2.462 Unknown [id number] 2.16.8 40.1.165519.3.579.2.462 Unknown [id number] 2.16.8 40.1.601367.3.579.2.462 Unknown [id number] 2.16.8 40.1.003690.3.579.2.462 Unknown [id number] 2.16.8 40.1.429358.3.579.2.462 Unknown [id number] 2.16.8 40.1.583749.3.579.2.462 Unknown [id number] 2.16.8 40.1.700649.3.579.2.462 Unknown [id number] 2.16.8 40.1.351147.3.579.2.462 Unknown [id number] 2.16.8 40.1.901774.3.579.2.462 Unknown [id number] 2.16.8 40.1.923231.3.579.2.462 Unknown [id number] 2.16.8 40.1.011812.3.579.2.462 Unknown [id number] 2.16.8 40.1.799837.3.579.2.462 Unknown [id number] 2.16.8 40.1.577533.3.579.2.462 Unknown [id number] 2.16.8 40.1.041153.3.579.2.462 Social History Date Type Detail Facility Start: 06-13-2017 Tobacco smoking status DCIS Unknown if ever smoked [facility] Start: 1955 Sex Assigned At Female [facility] Start: 01-24-2024 End: 09-15-2024 Tobacco smoking status NHIS Never smoked tobacco (finding) [facility] Start: 07-29-2024 End: 08-08-2024 Sex Female (finding) [facility] NEGATED: Highlighted row Not [facility] Medical Equipment Procedure Code Equipment Code Equipment Origin al Text Equipment Identifier Dates Robot-assisted total abdominal hysterectomy with bilateral salpingo-oophorectom y (SAMSON Collagen haemostatic agent, non-antimicrobial ()[id number] FDA Start: 09-29-2024 Robot-assisted total abdominal hysterectomy with bilateral salpingo-oophorectom y (SAMSON Plant polysaccharide haemostatic agent, bioabsorbable ()[id number] FDA Start: 09-29-2024 MESH,VENTLEX ST MED 6.4CM FDA Start: 05-24-2017 MESH,VENTLEX ST MED 6.4CM FDA Start: 05-24-2017 MESH,VENTLEX ST MED 6.4CM FDA Start: 05-24-2017 MESH,VENTLEX ST MED 6.4CM FDA Start: 05-24-2017 MESH,VENTLEX ST MED 6.4CM FDA Start: 05-24-2017 MESH,VENTLEX ST MED 6.4CM FDA Start: 05-24-2017 MESH,VENTLEX ST MED 6.4CM FDA Start: 05-24-2017 MESH,VENTLEX ST MED 6.4CM FDA Start: 05-24-2017 MESH,VENTLEX ST MED 6.4CM FDA Start: 05-24-2017 MESH,VENTLEX ST MED 6.4CM FDA Start: 05-24-2017 MESH,VENTLEX ST MED 6.4CM FDA Start: 05-24-2017 Goals Date Patient Goal Desired Activity /State Functional Status Date Assessment Result Facility 09-30-2024 Functional status Patient Activity Chair [facility] Work Phone: 09-30-2024 Functional status Activity Abili ty Independent;Standby Assist [facility] Work Phone: 09-29-2024 Functional status Activity Ability Post O p [facility] Work Phone: Mental Status Date Assessment Result Facility 09-30-2024 Cognitive function Level Of Cons ciousness Awake;Alert;Appropriate;Follow s Commands [facility] Work Phone: 09-29-2024 Cognitive function Awake;Alert;A ppropriate;Follow s Commands [facility] Work Phone: 09-29-2024 Cognitive function Appropriate;Cooperativ e [facility] Work Phone: 09-29-2024 Cognitive function Arousable To Voice/Nam e [facility] Work Phone: Clinical Notes 02-04-2024 to 10-13-2024 Note Date & Type Note Facility 10-13-2024 Progress note [facility] 09-30-2024 Consult note [facility] 09-30-2024 Consult note [facility] 09-30-2024 Progress note Note Date/Time September 30, 2024 8:18am [facility] Medical Records Department [address] [place] [address] Progress Note - OBGYN 09/30/24 0815 MR#: [id number] Acct: [id number] Name: FRANCHESKA CROSS Rep #:[id number] : 1955 69 From: Allyson Hercules DO PCP: Dr. Janey Camp MD Status:ADM MIRANDA Location: [place] [address] Subjective Subjective patient is up to bedside commode and able to ambulate back to her bed. She denies fevers, chills, nausea, vomiting, and states that she is ready to be in her own bed. Vaginal bleeding is scant to none per the nurse that is helping herback into bed. Her adult diaper is dry and clean. Objective Data Objective Data Vital Signs: Vital Signs Temp Pulse Resp BP Pulse Ox O2 Del Method O2 Flow Rate 98.4 F 72 16 117/76 94 Room Air 2 09/30/24 05:20 09/30/24 05:20 09/30/24 05:20 09/30/24 05:20 09/30/24 05:38 09/30/24 05:38 09/30/24 05:20 Oxygen Flow Rate (L/min) 2 Oxygen Delivery Method Room Air Weight: 201 lb 0.985 oz Body Mass Index (BMI) 32.4 Intake & Output: Intake and Output for Last 24 Hours 09/28/24 09/29/24 09/30/24 23:59 23:59 23:59 Intake Total 718 / 718 Output Total 620 / 620 300 / 300 Balance 98 / 98 -300 / -300 Lab / Micro Data 09/30/24 06:00 09/30/24 06:00 Labs: Laboratory Results - last 24 hr 09/29/24 08:44: POC Glucose 86 09/29/24 10:39: POC Glucose 107 H 09/29/24 14:56: POC Glucose 195 H 09/29/24 16:49: POC Glucose 218 H 09/30/24 00:42: POC Glucose 184 H 09/30/24 06:00: WBC 16.9 H, RBC 3.53 L, Hgb 10.5 L, Hct 31.9 L, MCV 90.4, MCH 29.7, MCHC 32.9, RDW Std Deviation 46.2 H, RDW Coeff of Terrell 14.0, Plt Count 271,MPV 9.9, Sodium 138, Potassium 4.1, Chloride 106, Carbon Dioxide 21.4, Anion Gap11, BUN 24 H, Creatinine 1.02, Estim Creat Clear Calc 57.55, Est GFR (MDRD) Non-Af 59 L, BUN/Creatinine Ratio 23.3 H, Glucose 149 H, Calcium 8.7, Total Bilirubin 0.50, AST 38 H, ALT 34, Alkaline Phosphatase 38, Total Protein 5.7 L, Albumin 3.6, Globulin 2.1 L, Albumin/Globulin Ratio 1.8 09/30/24 06:45: POC Glucose 147 H ROS Constitutional Constitutional: Reports systems reviewed and no addt'l complaints, except as documented Cardiovascular Cardiovascular: Denies chest pain, dizziness, dyspnea or irregular heart rhythm Respiratory/Chest Respiratory/Chest: Denies cough, pain on inspiration or shortness of breath at rest Gastrointestinal Gastrointestinal: Denies abdominal pain, nausea or vomiting Genitourinary Genitourinary: Denies burning urination Musculoskeletal Musculoskeletal: Denies muscle cramps, muscle spasms or muscle weakness Neurologic Neurologic: Denies confusion, dizziness, headache(s) or lack of coordination Psychiatric Psychiatric: Denies anxiety, behavioral changes or depression Physical Exam HEENT normocephalic Resp normal respiratory effort and normal air movement GI soft to palpation, non-tender and non-distended Rectal Exam: other Other Details: Incision is clean, dry, and intact no CVA tenderness Extremity normal to inspection General Extremity: edema bilateral (trace ) Assessment & Plan (1) Status post hysterectomy with oophorectomy: (2) Fibroid of cervix: COMMENT: on US, ordered MRI. PLAN: Plan patient is s/p robotic hyst with RSO, lysis of adhesions, POD 1 1. routine ERAS protocol postop care- increase ambulation, encourage oral intakeand oral control of pain. scds for dvt prophylaxis, patient stable for discharge to home. 09/30/24 0818 <Electronically signed by Allyson Hercules DO> Cosigner Signature (if applicable): CC: ~ Signed [facility] Work Phone: 1(589) 322-723505-28-2025 Progress note Author Allyson Deleon [facility] Note Date/Time September 30, 2024 8:18a m [facility] Medical Records Department [address] [place] [address] Progress Note - OBGYN 09/30/24 0815 MR#: [id number] Acct: [id number] Name: FRANCHESKA CROSS Rep #:[id number] : 1955 69 From: Allyson Hercules DO PCP: Dr. Janey Camp MD Status:ADM MIRANDA Location: [place] [id number] Subjective Subjective patient is up to bedside commode and able to ambulate back to her bed. She denies fevers, chills, nausea, vomiting, and states that she is ready to be in her own bed. Vaginal bleeding is scant to none per the nurse that is helping herback into bed. Her adult diaper is dry and clean. Objective Data Objective Data Vital Signs: Vital Signs Temp Pulse Resp BP Pulse Ox O2 Del Method O2 Flow Rate 98.4 F 72 16 117/76 94 Room Air 2 09/30/24 05:20 09/30/24 05:20 09/30/24 05:20 09/30/24 05:20 09/30/24 05:38 09/30/24 05:38 09/30/24 05:20 Oxygen Flow Rate (L/min) 2 Oxygen Delivery Method Room Air Weight: 201 lb 0.985 oz Body Mass Index (BMI) 32.4 Intake & Output: Intake and Output for Last 24 Hours 09/28/24 09/29/24 09/30/24 23:59 23:59 23:59 Intake Total 718 / 718 Output Total 620 / 620 300 / 300 Balance 98 / 98 -300 / -300 Lab / Micro Data 09/30/24 06:00 09/30/24 06:00 Labs: Laboratory Results - last 24 hr 09/29/24 08:44: POC Glucose 86 09/29/24 10:39: POC Glucose 107 H 09/29/24 14:56: POC Glucose 195 H 09/29/24 16:49: POC Glucose 218 H 09/30/24 00:42: POC Glucose 184 H 09/30/24 06:00: WBC 16.9 H, RBC 3.53 L, Hgb 10.5 L, Hct 31.9 L, MCV 90.4, MCH 29.7, MCHC 32.9, RDW Std Deviation 46.2 H, RDW Coeff of Terrell 14.0, Plt Count 271,MPV 9.9, Sodium 138, Potassium 4.1, Chloride 106, Carbon Dioxide 21.4, Anion Gap11, BUN 24 H, Creatinine 1.02, Estim Creat Clear Calc 57.55, Est GFR (MDRD) Non-Af 59 L, BUN/Creatinine Ratio 23.3 H, Glucose 149 H, Calcium 8.7, Total Bilirubin 0.50, AST 38 H, ALT 34, Alkaline Phosphatase 38, Total Protein 5.7 L, Albumin 3.6, Globulin 2.1 L, Albumin/Globulin Ratio 1.8 09/30/24 06:45: POC Glucose 147 H ROS Constitutional Constitutional: Reports systems reviewed and no addt'l complaints, except as documented Cardiovascular Cardiovascular: Denies chest pain, dizziness, dyspnea or irregular heart rhythm Respiratory/Chest Respiratory/Chest: Denies cough, pain on inspiration or shortness of breath at rest Gastrointestinal Gastrointestinal: Denies abdominal pain, nausea or vomiting Genitourinary Genitourinary: Denies burning urination Musculoskeletal Musculoskeletal: Denies muscle cramps, muscle spasms or muscle weakness Neurologic Neurologic: Denies confusion, dizziness, headache(s) or lack of coordination Psychiatric Psychiatric: Denies anxiety, behavioral changes or depression Physical Exam HEENT normocephalic Resp normal respiratory effort and normal air movement GI soft to palpation, non-tender and non-distended Rectal Exam: other Other Details: Incision is clean, dry, and intact no CVA tenderness Extremity normal to inspection General Extremity: edema bilateral (trace ) Assessment & Plan (1) Status post hysterectomy with oophorectomy: (2) Fibroid of cervix: COMMENT: on US, ordered MRI. PLAN: Plan patient is s/p robotic hyst with RSO, lysis of adhesions, POD 1 1. routine ERAS protocol postop care- increase ambulation, encourage oral intakeand oral control of pain. scds for dvt prophylaxis, patient stable for discharge to home. 05/28/25 0818 <Electronically signed by Allyson Hercules DO> Cosigner Signature (if applicable): CC: ~ Signed [facility] Work Phone: 1(907) 403-102005-28-2025 Progress note [facility] Medical Records Department [address] [place] [address] Progress Note - OBGYN 09/30/2415 MR#: [id number] Acct: [id number] Name: FRANCHESKA CROSS Rep #:[id number] : 1955 69 From: Allyson Hercules DO PCP: Dr. Janey Camp MD Status:ADM MIRANDA Location: [place] [id number] Subjective Subjective patient is up to bedside commode and able to ambulate back to her bed. She denies fevers, chills, nausea, vomiting, and states that she is ready to be in her own bed. Vaginal bleeding is scant to none per the nurse that is helping herback into bed. Her adult diaper is dry and clean. Objective Data Objective Data Vital Signs: Vital Signs Temp Pulse Resp BP Pulse Ox O2 Del Method O2 Flow Rate 98.4 F 72 16 117/76 94 Room Air 2 09/30/24 05:20 09/30/24 05:20 09/30/24 05:20 09/30/24 05:20 09/30/24 05:38 09/30/24 05:38 09/30/24 05:20 Oxygen Flow Rate (L/min) 2 Oxygen Delivery Method Room Air Weight: 201 lb 0.985 oz Body Mass Index (BMI) 32.4 Intake & Output: Intake and Output for Last 24 Hours 09/28/24 09/29/24 09/30/24 23:59 23:59 23:59 Intake Total 718 / 718 Output Total 620 / 620 300 / 300 Balance 98 / 98 -300 / -300 Lab / Micro Data 09/30/24 06:00 09/30/24 06:00 Labs: Laboratory Results - last 24 hr 09/29/24 08:44: POC Glucose 86 09/29/24 10:39: POC Glucose 107 H 09/29/24 14:56: POC Glucose 195 H 09/29/24 16:49: POC Glucose 218 H 09/30/24 00:42: POC Glucose 184 H 09/30/24 06:00: WBC 16.9 H, RBC 3.53 L, Hgb 10.5 L, Hct 31.9 L, MCV 90.4, MCH 29.7, MCHC 32.9, RDW Std Deviation 46.2 H, RDW Coeff of Terrell 14.0, Plt Count 271,MPV 9.9, Sodium 138, Potassium 4.1, Chloride 106, Carbon Dioxide 21.4, Anion Gap11, BUN 24 H, Creatinine 1.02, Estim Creat Clear Calc 57.55, Est GFR (MDRD) Non-Af 59 L, BUN/Creatinine Ratio 23.3 H, Glucose 149 H, Calcium 8.7, Total Bilirubin0.50, AST 38 H, ALT 34, Alkaline Phosphatase 38, Total Protein 5.7 L, Albumin 3.6, Globulin 2.1 L, Albumin/Globulin Ratio 1.8 09/30/24 06:45: POC Glucose 147 H ROS Constitutional Constitutional: Reports systems reviewed and no addt'l complaints, except as documented Cardiovascular Cardiovascular: Denies chest pain, dizziness, dyspnea or irregular heart rhythm Respiratory/Chest Respiratory/Chest: Denies cough, pain on inspiration or shortness of breath at rest Gastrointestinal Gastrointestinal: Denies abdominal pain, nausea or vomiting Genitourinary Genitourinary: Denies burning urination Musculoskeletal Musculoskeletal: Denies muscle cramps, muscle spasms or muscle weakness Neurologic Neurologic: Denies confusion, dizziness, headache(s) or lack of coordination Psychiatric Psychiatric: Denies anxiety, behavioral changes or depression Physical Exam HEENT normocephalic Resp normal respiratory effort and normal air movement GI soft to palpation, non-tender and non-distended Rectal Exam: other Other Details: Incision is clean, dry, and intact no CVA tenderness Extremity normal to inspection General Extremity: edema bilateral (trace ) Assessment & Plan (1) Status post hysterectomy with oophorectomy: (2) Fibroid of cervix: COMMENT: on US, ordered MRI. PLAN: Plan patient is s/p robotic hyst with RSO, lysis of adhesions, POD 1 1. routine ERAS protocol postop care- increase ambulation, encourage oral intakeand oral control ofpain. scds for dvt prophylaxis, patient stable for discharge to home. 05/28/25 0818 Cosigner Signature (if applicable): CC: ~ Signed [facility]05-27-2025 Consult note Author Marcelo Vick [facility] Note Date/Time September 30, 2024 10:19 am [facility] Medical Records Department [address] [place] [address] Anesthesia Postop Eval II 09/29/249 MR#: [id number] Acct: [id number] Name: FRANCHESKA CROSS Rep #:[id number] : 1955 69 From: Marcelo Vick CRNA PCP: Dr. 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 Anesthesia Postop Eval I: Fluid Summary Crystalloid volume administer 1,300 09/29/24 13:38 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 WORKER.MEDM (ml) Colloids volume administered ( ml) Blood Product volume administered (ml) Total IV fluid infused 1,300 09/29/24 13:38 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 WORKER.MEDM Anesthesia Postop Eval I: Summary Notes Anesthesia Complication No 09/29/24 13:38 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 WORKER.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 Anesthesia Complication Comment: Post-operative progress note patient tolerated 09/29/24 13:38 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 WORKER.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 well Anesthesia: Postop Eval II Evaluation Mental status: Awake and Calm Pain Level: 2 nausea: No Vomiting: No Complications Anesthesia Complication: No 09/29/241338 <Electronically signed by Marcelo cr CRNA> Date _ Marcelo Vick CRNA Cosigner Signature: Date CC: ~ Signed [facility] Work Phone: 1(108) 686-573505-27-2025 Consult note Author Marcelo Vick [facility] Note Date/Time September 29, 2024 1:38p m [facility] Medical Records Department [address] [place] [address] Anesthesia Postop Eval I 09/29/24 1337 MR#: [id number] Acct: [id number] Name: FRANCHESKA CROSS Rep #:[id number] : 1955 69 From: Marcelo Vick CRNA PCP: Dr. Janye Camp MD Status:REG SDC Y Race: C Location: [place] [address] Anesthesia: Postop Eval I Current Vital Signs Temperature: 97.3 F Pulse Rate: 69 Blood Pressure: 106/79 Respiratory Rate: 16 Pulse Ox: 92 Oxygen Delivery Method: Nasal Cannula Oxygen Flow Rate (L/min): 2 Assessment Airway patent: Yes Spontaneous unlabored respirations: Yes Mental status: Awake and Calm nausea: No Vomiting: No Anesthesia Complication: No Fluid Hydration Crystalloid volume administer (ml): 1,300 Total IV fluid infused: 1,300 Progress Note Post-operative progress note: patient tolerated well Anesthesia document: Postop Eval 1 completed: Yes 09/29/24 1338 <Electronically signed by Marcelo cr CRNA> Date _ Marcelo Vick CRNA Cosigner Signature: Date CC: ~ Signed [facility] Work Phone: 1(834) 152-591105-27-2025 Procedure note [facility] Medical Records Department [address] [place] [address] Operative Report 09/29/24 1319 MR#: [id number] Acct: [id number] Name: FRANCHESKA CROSS Rep #:[id number] : 1955 69 From: Allyson Hercules DO PCP: Dr. Janey Camp MD Status:REG [facility] Location: [place] [address] Problems Associated Problem List Diagnoses (1) Fibroid of cervix: (2) Postmenopausal bleeding: (3) Incisional hernia of anterior abdominal wall without obstruction or gangrene: Multi Select Codes Urinary/Genital Urinary/Genital CPT Codes: 58956 Cystoscopy, 68501 TLH+BS/O <250gr uterus and Other Procedure See Report (lysis of adhesions ) Operative Report (Standard) Operative Information Date of Procedure: 09/29/24 Pre-Operative Diagnosis: postmenopausal bleeding, cervical fibroid Post-Operative Diagnosis: postmenopausal bleeding, cervical fibroid, pelvic and abdominal adhesions Surgery/Procedure Performed: total robotic hysterectomy, right salpingo- oophorectomy, lysis of adhesions, cystoscopy numerical control programmer: Yes Chocolate Packer: Jong Saul Tasks completed by information assistant: Closing, Insert Trochanter, Trocar and Retracting Additional sales assistant?: No Type of Anesthesia: General RN Documented Start/Stop Times: Operation Date: 09/29/24 10:20 Case Time Into Pre-Op 09/29/24 08:16 Out of Pre-Op 09/29/24 10:11 Anesthesia Start 09/29/24 10:16 Into Room 09/29/24 10:16 Procedure Start 09/29/24 10:42 Procedure End 09/29/24 13:03 Procedure Start Time: 10:42 Procedure Stop Time: 13:03 Select all DRAINS/GRAFTS/IMPLANTS that apply: None Estimated Blood Loss: 100cc Specimen collected: Yes Description of specimen(s) removed: uterus, cervix, right fallopian tube and ovary. Description of surgery: Findings: 12 cm size uterus,cervical fibroid normal appearing right ovary and tube, Marked pelvic and abdominal wall adhesions. On exploration of the abdominal cavity the uterus, adnexa, bowel, and liver were found to be normal. Cystoscopy showed no evidence of leaking at approximately 250 cc of normal saline, positive ureteral orifices and jet flow are seen and no suture material was appreciatedin the bladder. Specimens removed: Uterus and cervix, right fallopian tube, right ovary, large cervical fibroid. Reason for surgery: This is a 69-year-old who presented to my office with history of postmenopausalbleeding secondary to large cervical fibroid. the planned procedure is for a robotic hysterectomy the risks benefits and alternatives werediscussed with the patient the patient had a clear understandi ng of the procedure and a consent form was signed. Procedure: The patient was placed in the dorsal low lithotomy position and prepped and draped in the normal sterile fashion both abdominally and in the perineum. Her legs were placed in stirrups a Gerardo catheter was inserted into the urethra without difficulty. A weighted speculum was placed in the vagina katelyn single- tooth tenaculum was used to grasp the anterior lip of the cervix. An advincula uterine manipulator was inserted through the cervix without complication. It was then tied into place at the 2 and 10:00 locations on the cervix. Gloves were changed and attention was turned towards the abdomen.Approximately 21 cm above the pubic symphysis in the midline, and after Marcaineinjection, a 8 mm incision was made. An 8 mm trocar was inserted through the laparoscope, then inserted into the abdomen under direct visualization using thelaparoscope. Good abdominal placement was noted between 2 large bands of omentaland bowel adhesions to the anterior abdominal wall, and no complications were appreciated. An air seal device was utilized to create pneumoperitoneum. At 12cm lateral to the midline o n the left and right sides 8 mm accessory ports were placed. This was performed only after removingsome of the fine adhesions of theomentum with the vessel sealer device through the midline incisionand the camera through the right side incision. Next a left upper quadrant 8 mm sales assistant port sitewas placed to be used with the air seal device. The patient was placed in steep Trendelenburg position. The robot was docked. The hysterectomy was initiated first by taking down the round ligament on each side using the vessel sealer device. The peritoneum between the round ligament and the IP ligament was opened using electrocautery and extended the length of the IP ligament. The IP ligament was then taken down using the vessel sealer device on the right side. These areas were freed without complication the broadligament was then and taken down using the vessel sealer device. Nextthe bladder flap was taken down without complication. This was done using monopolar cautery to the level of the cervical vaginal junction. After the b ladder flap was created, uterine vessels were then isolated and cauterized using the vessel sealer device and EndoShears. The left ovary was noted to be entangled in bowel adhesions. On the left sideof the uterus, the ovarian ligament and round ligament only were cauterized and cut. The fallopian tube andovary were left to avoid bowel complications. At this point the uterine vesselswere taken down further starting from the ascending branch, dissecting along theedges of the cervix to the level of the cervical vaginal junction with hemostasis appreciated. A large left sided cervical fibroid was in the way of making acolpotomy and a myomectomy was performed using the bovie and the vessel sealer. The fibroid was set asisee and t The cervical vaginal junction was then using monopolar cautery in a circumferential pattern across the superior aspect of the cervix. The specimen including the fibroid was delivered through the vagina and sent to pathology. The remaining vaginal cuff was then closed using a V lock suture. This was performed in a running technique. Excellent hemostasis was obtained and good closure was noted. Irrigation was then performed. All operative sites were noted to be hemostatic. A cystoscopy was performed with a 70 degree cystoscope through the urethra into the bladder withoutcomplication. The bladder was instilled with approximately 250 cc of normal saline. Intraoperative images were made. Ureteral orifices and jets were identified. No suture material was appreciated in the bladder. The bladder was then drained and cystoscope was removed. The abdominal cavity was again examined using the laparoscope after the robot was undocked. All operative sites were noted to be hemostatic. The trochars were removed under direct visualization without complication and pneumoperitoneum was reduced. At this point the skin was then closed using 4-0 Monocryl subcuticular stitch and sealed with surgical glue. The patient tolerated the procedure well sponge lap and needle counts were correct x2 the patient was taken to the recovery room in stable condition. Surgical Findings: moderate to marked adhesions of omentum and bowel to mesh graft on the anerior abdominal wall. Marked adhesions to the left ovary and fallopian tube to the bowel. cervical fibroid. Complications Complications: No Admit VTE Documentation VTE Mechan Device Prophylaxis: SCD's VTE Pharm Prophylaxis ordered?: No 09/29/24 4471 Cosigner Signature (if applicable): CC: Dr. Janey Camp MD; Dr. Allyson Hercules DO~ Signed [facility]05-27-2025 Consult note [facility] Medical Records Department [address] [place] [address] Anesthesia Postop Eval I 09/29/24 1337 MR#: [id number] Acct: [id number] Name: FRANCHESKA CROSS Rep #:[id number] : 1955 69 From: Marcelo Vick CRNA PCP: Dr. Janey Camp MD Status:REG SDC Y Race: C Location: [place] [address] Anesthesia: Postop Eval I Current Vital Signs Temperature: 97.3 F Pulse Rate: 69 Blood Pressure: 106/79 Respiratory Rate: 16 Pulse Ox: 92 Oxygen Delivery Method: Nasal Cannula Oxygen Flow Rate (L/min): 2 Assessment Airway patent: Yes Spontaneous unlabored respirations: Yes Mental status: Awake and Calm nausea: No Vomiting: No Anesthesia Complication: No Fluid Hydration Crystalloid volume administer (ml): 1,300 Total IV fluid infused: 1,300 Progress Note Post-operative progress note: patient tolerated well Anesthesia document: Postop Eval 1 completed: Yes 09/29/24 1338 ds 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> Date _ Marcelo Vick 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 WORK[employer] Cosigner Signature: Date CC: ~ Signed [facility]05-27-2025 History and physical note Author Allyson Deleon [facility] Note Date/Time September 29, 2024 10:06 am [facility] Medical Records Department [address] [place] [address] History & Physical Exam 09/29/24 0915 MR#: [id number] Acct: [id number] Name: FRANCHESKA CROSS Rep #:[id number] : 1955 69 From: Allyson Hercules DO PCP: Dr. Janey Camp MD Status:REG [facility] [place] Location: [place] [address]- History and Physical Date of Admission: 09/29/24 Intake Vital Signs 08/14/2512:54 09/23/2508:37 09/23/2508:38 Height 5 ft 6 in 5 ft 6 in 5 ft 6 in Weight: 196 lb 198 lb 4 oz BMI 31.6 32.0 BP 116/70 113/75 Intake Visit Reasons: TRH BSO cyst [employer] Required: No Is patient in pain?: No Allergies hydrocodone (From Vicodin) Allergy (Unknown, Verified 09/23/24 09:36) Unknown Medications ?Medication ?Instructions ?Recorded ?Confirmed ?Type aspirin 81 mg tablet,delayed 81 mg PO QDAY 05/15/17 09/23/24 History release (Adult Low Dose Aspirin) calcium 600 mg (as 1 cap PO DAILY 05/15/17 09/23/24 History carbonate)-vitamin D3 5 mcg (200 unit) capsule lisinopril 20 2 tab PO DAILY 09/28/23 09/23/24 History mg-hydrochlorothiazide 12.5 mg tablet amlodipine 5 mg tablet 5 mg PO QHS 01/22/24 09/23/24 History atorvastatin 10 mg tablet 10 mg PO QHS 01/22/24 09/23/24 History turmeric 400 mg capsule 400 mg PO DAILY 01/22/24 09/23/24 Histor y antiarthritic combination no.2 900 1,500 mg PO DAILY 01/24/24 09/23/24 Hist ory mg tablet (glucosamine-chondroitin) cholecalciferol (vitamin D3) 125 125 mcg PO QDAY 01/24/24 09/23/24 Histor y mcg (5,000 unit) capsule megestrol 40 mg tablet 40 mg PO BID #60 tabs 08/04/24 09/23/24 Rx metformin 500 mg tablet 500 mg PO DAILY 09/15/24 09/23/24 Histor y Is last menstrual period known: No Post menopausal: Yes Patient : No : No PFSH Medical History Wears glasses Diabetes Ambulates with cane High cholesterol Non-smoker Incisional hernia of anterior abdominal wall without obstruction or gangrene Arthritis Heart murmur Surgical History H/O total knee replacement Status post hysteroscopic polypectomy History of incisional hernia repair Dislocation, shoulder closed S/P appendectomy S/P cholecystectomy Family History Mother HypertensionFather DiabetesSon Seizures Social History number of children: 6 Smoking Status: Never smoker second hand exposure: No alcohol intake: never substance use type: does not use caffeine: No what type of physical activity do you participate in: none frequency: does not exercise seatbelt use: always additional social history: Sanchez SUNG TRH BSO cyst Details: FRANCHESKA CROSS is a 69 year old who presents for pre-op robotic hyst. She is a (all vaginal deliveries) who has on and off vaginal bleeding ( postmenopausal bleeding). She had a d and c in february that showed hyperplasia, she has been on megace since. she has had an increase in bleeding since the weekend. she has been feeling good no cramping. she has gone through two diapers a day two days over the weekend and now is only spotting. EMB was easily obtained in the office by Dr Beal and was benign. Ultrasound shows a cervical fibroid that is likely degrading. EXAM: US Pelvis Transvaginal CLINICAL INDICATION: AUB, POST D C TECHNIQUE: Real-time transvaginal pelvic ultrasound with image documentation. Transvaginal imaging was used for better evaluation of the endometrium and adnexa. COMPARISON: No relevant prior studies available. FINDINGS: UTERUS/CERVIX: Cervical fibroid measuring 4.6 x 4.0 x 3.8 cm. Normal endometrial stripe thickness. The uterus measures 7.7 x 5.3 x 3.7 cm. RIGHT OVARY: Right ovary not visualized. LEFT OVARY: Left ovary not visualized. FREE FLUID: No fluid. BLADDER: Empty bladder which cannot be evaluated with this probe. US/Transvaginal Non- IMPRESSION: Fibroid as above. History Past Pregnancies Del. Date Name GA/Weeks Outcome Route Bth Weight Infant Gen Labor Lgth Anesthesia Del Locatn Provider FOB Unknown Alex Unknown Kyle Unknown Hever Unknown Huang Unknown Syd Unknown Liliana ROS Const ROS Unobtainable: All systems reviewed & are unremarkable except as noted in H Resp Resp: Reports system reviewed and no additional complaints, except as documented; Denies cough GI GI: Reports as per HPI Psych Psych: Reports system reviewed and no additional complaints, except as documented Exam Const General: cooperative, healthy appearing, comfortable and no acute distress Resp Effort & Inspection: normal respiratory effort Skin General: no rashes or lesions noted Psych Appearance: grossly normal Speech and Movement: speech and movement normal Coding Level of Care Code Off vis,est,level 4 Diagnoses Fibroid of cervix D25.9 Status post hysteroscopic polypectomy Z98.890 Primary hypertension I10 Hypertension type: primary hypertension Postmenopausal bleeding N95.0 Assessment and Plan Assessment and Plan (1) Fibroid of cervix: Status: Acute Comment: on US, ordered MRI. (2) Status post hysteroscopic polypectomy: Status: Acute Comment: simple hyperplasia without atypia (3) HTN (hypertension): Status: Chronic Qualifiers: Hypertension type: primary hypertension Qualified Code(s): I10 - Essential (primary) hypertension (4) Postmenopausal bleeding: Status: Acute Comment: recurrent early heavy bleeding breakthrough on megace simple hyperplasia without atypia. s/p d and c hysteroscopy. plan megace x 6 months then emb. Orders: Orders CBC W/Diff, Automated Today N95.0 - Postmenopausal bleeding Plan After discussing the patient's diagnosis and treatment plan options, patient wishes to proceed with surgical management. I have discussed with the patient the risks, benefits, and alternatives of the procedure which include but are notlimited to risks of anesthesia, bleeding, infection, possible damage to bowel, bladder, or surrounding vasculature which could lead to additional surgery to evaluate any complications. Patient agrees to procedure and wishes to proceed. ACOG/uptodate references given for additional information regarding procedure. MRI done today -pending plan is for a total robotic hyst, bso, cysto. She may need to see Dr. Melendez for urinary incontinence after she heals from this surgery. 09/29/24 1006 <Electronically signed by Allyson Hercules DO> Cosigner Signature (if applicable): CC: Dr. Janey Camp MD; Dr. Allyson Hercules DO~ Signed [facility] Work Phone: 1(676) 915-168205-27-2025 History and physical note Author Allyson Deleon [facility] Note Date/Time September 29, 2024 10:06 am [facility] Medical Records Department [address] [place] [address] History & Physical Exam 09/29/24914 MR#: [id number] Acct: [id number] Name: FRANCHESKA CROSS Rep #:[id number] : 1955 69 From: Allyson Hercules DO PCP: Dr. Janey Camp MD Status:[facility] Location: [place] [address] History and Physical Date of Admission: 09/29/24 Intake Vital Signs 08/14/2512:54 09/23/2508:37 09/23/2508:38 Height 5 ft 6 in 5 ft 6 in 5 ft 6 in Weight: 196 lb 198 lb 4 oz BMI 31.6 32.0 BP 116/70 113/75 Intake Visit Reasons: TRH BSO cyst [employer] Required: No Is patient in pain?: No Allergies hydrocodone (From Vicodin) Allergy (Unknown, Verified 09/23/24 09:36) Unknown Medications ?Medication ?Instructions ?Recorded ?Confirmed ?Type aspirin 81 mg tablet,delayed 81 mg PO QDAY 05/15/17 09/23/24 History release (Adult Low Dose Aspirin) calcium 600 mg (as 1 cap PO DAILY 05/15/17 09/23/24 History carbonate)-vitamin D3 5 mcg (200 unit) capsule lisinopril 20 2 tab PO DAILY 09/28/23 09/23/24 History mg-hydrochlorothiazide 12.5 mg tablet amlodipine 5 mg tablet 5 mg PO QHS 01/22/24 09/23/24 History atorvastatin 10 mg tablet 10 mg PO QHS 01/22/24 09/23/24 History turmeric 400 mg capsule 400 mg PO DAILY 01/22/24 09/23/24 Histor y antiarthritic combination no.2 900 1,500 mg PO DAILY 01/24/24 09/23/24 Hist ory mg tablet (glucosamine-chondroitin) cholecalciferol (vitamin D3) 125 125 mcg PO QDAY 01/24/24 09/23/24 Histor y mcg (5,000 unit) capsule megestrol 40 mg tablet 40 mg PO BID #60 tabs 08/04/24 09/23/24 Rx metformin 500 mg tablet 500 mg PO DAILY 09/15/24 09/23/24 Histor y Is last menstrual period known: No Post menopausal: Yes Patient : No : No PFSH Medical History Wears glasses Diabetes Ambulates with cane High cholesterol Non-smoker Incisional hernia of anterior abdominal wall without obstruction or gangrene Arthritis Heart murmur Surgical History H/O total knee replacement Status post hysteroscopic polypectomy History of incisional hernia repair Dislocation, shoulder closed S/P appendectomy S/P cholecystectomy Family History Mother HypertensionFather DiabetesSon Seizures Social History number of children: 6 Smoking Status: Never smoker second hand exposure: No alcohol intake: never substance use type: does not use caffeine: No what type of physical activity do you participate in: none frequency: does not exercise seatbelt use: always additional social history: Sanchez SUNG TRH BSO cyst Details: FRANCHESKA CROSS is a 69 year old who presents for pre-op robotic hyst. She is a (all vaginal deliveries) who has on and off vaginal bleeding ( postmenopausal bleeding). She had a d and c in february that showed hyperplasia, she has been on megace since. she has had an increase in bleeding since the weekend. she has been feeling good no cramping. she has gone through two diapers a day two days over the weekend and now is only spotting. EMB was easily obtained in the office by Dr Beal and was benign. Ultrasound shows a cervical fibroid that is likely degrading. EXAM: US Pelvis Transvaginal CLINICAL INDICATION: AUB, POST D C TECHNIQUE: Real-time transvaginal pelvic ultrasound with image documentation. Transvaginal imaging was used for better evaluation of the endometrium and adnexa. COMPARISON: No relevant prior studies available. FINDINGS: UTERUS/CERVIX: Cervical fibroid measuring 4.6 x 4.0 x 3.8 cm. Normal endometrial stripe thickness. The uterus measures 7.7 x 5.3 x 3.7 cm. RIGHT OVARY: Right ovary not visualized. LEFT OVARY: Left ovary not visualized. FREE FLUID: No fluid. BLADDER: Empty bladder which cannot be evaluated with this probe. US/Transvaginal Non- IMPRESSION: Fibroid as above. History Past Pregnancies Del. Date Name GA/Weeks Outcome Route Bth Weight Infant Gen Labor Lgth Anesthesia Del [facility] Provider FOB Unknown Alex Unknown Kyle Unknown Hever Unknown Huang Unknown Syd Unknown Liliana ROS Const ROS Unobtainable: All systems reviewed & are unremarkable except as noted in H Resp Resp: Reports system reviewed and no additional complaints, except as documented; Denies cough GI GI: Reports as per HPI Psych Psych: Reports system reviewed and no additional complaints, except as documented Exam Const General: cooperative, healthy appearing, comfortable and no acute distress Resp Effort & Inspection: normal respiratory effort Skin General: no rashes or lesions noted Psych Appearance: grossly normal Speech and Movement: speech and movement normal Coding Level of Care Code Off vis,est,level 4 Diagnoses Fibroid of cervix D25.9 Status post hysteroscopic polypectomy Z98.890 Primary hypertension I10 Hypertension type: primary hypertension Postmenopausal bleeding N95.0 Assessment and Plan Assessment and Plan (1) Fibroid of cervix: Status: Acute Comment: on US, ordered MRI. (2) Status post hysteroscopic polypectomy: Status: Acute Comment: simple hyperplasia without atypia (3) HTN (hypertension): Status: Chronic Qualifiers: Hypertension type: primary hypertension Qualified Code(s): I10 - Essential (primary) hypertension (4) Postmenopausal bleeding: Status: Acute Comment: recurrent early heavy bleeding breakthrough on megace simple hyperplasia without atypia. s/p d and c hysteroscopy. plan megace x 6 months then emb. Orders: Orders CBC W/Diff, Automated Today N95.0 - Postmenopausal bleeding Plan After discussing the patient's diagnosis and treatment plan options, patient wishes to proceed with surgical management. I have discussed with the patient the risks, benefits, and alternatives of the procedure which include but are notlimited to risks of anesthesia, bleeding, infection, possible damage to bowel, bladder, or surrounding vasculature which could lead to additional surgery to evaluate any complications. Patient agrees to procedure and wishes to proceed. ACOG/uptodate references given for additional information regarding procedure. MRI done today -pending plan is for a total robotic hyst, bso, cysto. She may need to see Dr. Melendez for urinary incontinence after she heals from this surgery. 09/29/24 1006 <Electronically signed by Allyson Hercules DO> Cosigner Signature (if applicable): CC: Dr. Janey Camp MD; Dr. Allyson Hercules DO~ Signed [facility] Work Phone: [phone]) [phone] Consult note Author Marcelo Vick [facility] Note Date/Time September 29, 2024 9:59a m [facility] Medical Records Department [address] [place] [address] Pre-Anesthesia Evaluation 09/29/24 0958 MR#: [id number] Acct: [id number] Name: FRANCHESKA CROSS Rep #:[id number] : 1955 69 From: Marcelo Vick 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 WORKER PCP: Dr. Janey Camp MD Status:REG [facility] [place] [facility] Y Race: C Location: [place] [address] ASA Classification* ASA Classification ASA Classification: 3 Assessment & Plan Anesthesia* Anesthesia Assessment Anesthesia Assessment: Discussed sedation and/or anesthesia options, risks, benefits, and alternatives with patient/parents/legal guardian/POA. Questions invited. The patient/parents/legal guardian/POA seems to understand and agrees to proceedwith anesthesia plan. Reviewed the physical assessment, medical history, allergy history and patient home medications list prior to surgery/procedure/anesthetic and documented any changes. Performed airway and anesthesia risk assessments. Anesthesia Type Anesthesia Type: General History Source History Obtained from:: Patient and Chart Anesthesia Focused Assessment* Temperature: 97.7 F Pulse Rate: 79 Blood Pressure: 129/93 Respiratory Rate: 16 Pulse Ox: 95 Oxygen Delivery Method: Room Air Airway Assessment Mouth opens: >3 cm Mallampati Score: II Teeth Condition: Intact Neck Range of motion (ROM): Full ROM Focused Labs Anesthesia Preop lab: CBC WBC 10.7 K/mm3 (4.4-11.0) 09/23/24 10:23 09/23/24 RBC 4.38 M/mm3 (4.2-5.4) 09/23/24 10:23 09/23/24 Hgb 13.0 g/dL (12.0-15.0) 09/23/24 10:23 09/23/24 Hct 40.0 % (37-47) 09/23/24 10:23 09/23/24 Plt Count 333 K/mm3 (150-450) 09/23/24 10:23 09/23/24 CHEMISTRY Potassium 3.9 mmol/L (3.3-5.1) 09/23/24 09:30 09/23/24 Sodium 142 mmol/L (133-145) 09/23/24 09:30 09/23/24 Magnesium 2.1 mg/dL (1.5-2.2) 09/23/24 09:09/23/24 BUN 24 mg/dL (4-19) H 09/23/24 09:09/23/24 Creatinine 1.10 mg/dL (0.70-1.20) 09/23/24 09:30 09/23/24 Glucose 105 mg/dL (70-99) H 09/23/24 09:30 09/23/24 POC Glucose 86 mg/dL (74-106) 09/29/24 08:44 09/29/24 TSH 2.240 uIU/mL (0.358-3.740) 03/13/24 10:33 1112/27 COAG Pre-Assessment Diagnosis/Proposed Procedure Planned Operative Procedure(s): Lap Total Robotic Hysterectomy BSO, Cystoscopy Anesthesia History Anesthesia History - supervisor sample: Anesthesia History - supervisor sample Hx Hospitalization No 09/15/24 14:08 Any Problems With Anesthesia No 09/15/24 14:08 Cholinesterase deficiency No 09/15/24 14:08 You/Your Family Experience No 09/15/24 14:08 fever (hyperthermia) with Relationship Recent Exposure to Contagious No 09/29/24 09:11 Disease Does patient have nerve No 09/15/24 14:08 stimulator Patient instructed to have device shut off --Does patient have Pacemaker No 09/29/24 09:11 or ICD? When Was Last Pacemaker Check QUESTION #4 FULL TEXT: You/Your Family Experience fever (hyperthermia) with Anesthesia Last Oral Intake Last Oral intake: Last Oral Intake NPO since 22:00 09/29/24 09:11 Meds taken in AM with sips of No 09/29/24 09:11 water? Meds patient instructed to take am of surgery PONV PONV - supervisor sample: PONV - supervisor sample Female Yes 09/15/24 14:08 HX of Motion Sickness No 09/15/24 14:08 HX of N/V After Surgery Yes 09/15/24 14:08 Non-Smoker Yes 09/15/24 14:08 Duration of Surgery greater Yes 09/15/24 14:08 than 60 minutes Number of Risk Factors 4 09/15/24 14:08 PONV Score Severe Risk 09/15/24 14:08 Height & Weight Height & Weight: Anesthesia: Height & Weight Height 5 ft 6 in 09/29/24 09:11 Weight: 91.2 kg 09/29/24 09:11 Body Mass Index (BMI) 32.4 09/29/24 09:11 Respiratory Assessment Respiratory Assessment - supervisor sample: Respiratory Tract Infection Hx - supervisor sample Hx Respiratory Tract Infection No 09/15/24 14:08 STOP Sleep Apnea STOP Sleep Apnea - supervisor sample: STOP Sleep Apnea - supervisor sample Hx Hypertension Yes 09/15/24 14:08 Hx Sleep Apnea No 09/15/24 14:08 CPAP BIPAP Do you snore loudly (louder No 09/15/24 14:08 than talking or can be heard Do you often feel tired/ No 09/15/24 14:08 fatigued/ sleepy during daytime? Has anyone observed you stop No 09/15/24 14:08 breathing during sleep? STOP Results Negative 09/15/24 14:08 QUESTION #5 FULL TEXT : Do you snore loudly (louder than talking or can be heard through closed doors)? 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 Specify any problems Hx of Preganancy in last 3 No 09/15/24 14:08 Months Nurse Filling Out Transfusion [facility] 09/15/24 14:08 & Questions: Date: 09/15/24 09/15/24 14:08 Time: 14:14 09/15/24 14:08 Patient unable to answer at this time (ie. confused, unrespo /Reproduction History /Reproductive History - supervisor sample: /Reproductive Hx- supervisor sample Hx Now No 09/15/24 14:08 Gestational Age (in weeks): EDC: Hx Hx Para Hx Section SAB No 09/23/24 09:38 Active Medications Active Medications: Current Medications Generic Name Dose Route Start Last Admin Trade Name Freq PRN Reason Stop Dose Admin Acetaminophen 1,000 mg 09/29/24 10:20 09/29/24 09:17 Acetaminophen 500 Mg Tablet PO 09/29/24 10:21 1,000 mg PREOP ONE Administration Celecoxib 400 mg 09/29/24 10:20 09/29/24 09:16 Celecoxib 200 Mg Capsule PO 09/29/24 10:21 400 mg PREOP ONE Administration Gabapentin 600 mg 09/29/24 10:20 09/29/24 09:17 Gabapentin 600 Mg Tablet PO 09/29/24 10:21 600 mg PREOP ONE Administration Lactated Ringer's 1,000 mls @ 40 mls/hr 09/29/24 10:20 09/29/24 09:03 IV 40 mls/hr .Q25H MICHELLE Administration Cefazolin Sodium 2 gm/ Sodium 110 mls @ 150 mls/hr 09/29/24 10:20 Chloride IV 09/29/24 11:03 INTRAOP ONE Lactated Ringer's 1,000 mls @ 70 mls/hr 09/29/24 10:20 IV .[id number] MICHELLE Magnesium Sulfate 1 gm/ 102 mls @ 408 mls/hr 09/29/24 10:20 09/29/24 09:02 Dextrose IV 09/29/24 10:34 408 mls/hr INTRAOP ONE Administration Insulin Human Lispro 0 unit 09/29/24 10:20 Insulin Lispro 100 Unit/Ml Insuln.Pen SC 09/29/24 18:00 Q4H PRN PRN BG >/= 180, SEE PROTOCOL Protocol Ondansetron HCl 4 mg 09/29/24 10:20 Ondansetron 4 Mg/2 Ml Vial IV 09/29/24 10:21 INTRAOP ONE Phenazopyridine HCl 190 mg 09/29/24 10:20 09/29/24 09:17 Phenazopyridine 95 Mg Tablet PO 09/29/24 10:21 190 mg PREOP ONE Administration Scopolamine HBr 1 patch 09/29/24 10:20 09/29/24 09:03 Scopolamine 1mg/72hr Patch TD 09/29/24 10:21 1 patch PREOP ONE Administration PFSH Medical History Wears glasses Diabetes Ambulates with cane High cholesterol Non-smoker Incisional hernia of anterior abdominal wall without obstruction or gangrene Arthritis Heart murmur Home Medications ?Medication ?Instructions ?Recorded ?Last Taken ?Type aspirin 81 mg tablet,delayed 81 mg PO QDAY 05/15/17 History release (Adult Low Dose Aspirin) calcium 600 mg (as 1 cap PO DAILY 05/15/1709/04 History carbonate)-vitamin D3 5 mcg (200 unit) capsule lisinopril 20 2 tab PO DAILY 09/28/2309/04 History mg-hydrochlorothiazide 12.5 mg tablet amlodipine 5 mg tablet 5 mg PO QHS 01/22/24 5 History atorvastatin 10 mg tablet 10 mg PO QHS 01/22/24 History turmeric 400 mg capsule 400 mg PO DAILY 01/22/24 History Held on 09/29/24. Instructions: Resume on 10/06/24. antiarthritic combination no.2 900 1,500 mg PO DAILY 0 01/24/24 09/28/24 History mg tablet (glucosamine-chondroitin) cholecalciferol (vitamin D3) 125 125 mcg PO QDAY 01/2309/28/24 History mcg (5,000 unit) capsule metformin 500 mg tablet 500 mg PO DAILY 09/15/24 History docusate sodium 100 mg capsule 100 mg PO DAILY #14 cap s 09/29/24 Unknown Rx (Colace) naproxen 500 mg tablet 500 mg PO BID PRN pain (scal e 09/29/24 Unknown Rx score 4-6) #30 tabs oxycodone-acetaminophen 5 mg-325 1 tab PO Q4H PRN pain (scale score 09/29/24 Unknown Rx mg tablet (Percocet) 7-10) 7 days #20 tabs Allergy/AdvReac Type Severity Reaction Status Date / Time hydrocodone (From Vicodin) Allergy Unknown Unknown Verified 09/29/24 09:06 Family History Mother Hypertension Father Diabetes Son Seizures Surgical History H/O total knee replacement Status post hysteroscopic polypectomy History of incisional hernia repair Dislocation, shoulder closed S/P appendectomy S/P cholecystectomy Social History number of children: 6 Smoking Status: Never smoker second hand exposure: No alcohol intake: never substance use type: does not use caffeine: No what type of physical activity do you participate in: none frequency: does not exercise seatbelt use: always additional social history: Sanchez Review of Systems (Anesthesia) ROS Narrative System reviewed and no additional complaints, except as documented. Physical Exam Const alert and oriented x3 Orientation / Consciousness: awake Nutritional Appearance: obese Neck full ROM Extremity full ROM 09/29/24 0959 <Electronically signed by Marcelo cr 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> Date _ Marcelo Vick 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 WORK[employer] Cosigner Signature: Date CC: ~ Signed [facility] Work Phone: [phone]) [phone] Consult note Author John Jung [facility] Note Date/Time September 29, 2024 9:40a m [facility] Medical Records Department [address] [place] [address] Pre-Anesthesia Evaluation 09/29/24 0936 MR#: [id number] Acct: [id number] Name: FRANCHESKA CROSS Rep #:[id number] : 1955 69 From: John Jung MD PCP: Dr. Janey Camp MD Status:REG [facility] Y Race: C Location: [place] [address] ASA Classification* ASA Classification ASA Classification: 2 Assessment & Plan Anesthesia* Anesthesia Assessment Anesthesia Assessment: Discussed sedation and/or anesthesia options, risks, benefits, and alternatives with patient/parents/legal guardian/POA. Questions invited. The patient/parents/legal guardian/POA seems to understand and agrees to proceedwith anesthesia plan. Reviewed the physical assessment, medical history, allergy history and patient home medications list prior to surgery/procedure/anesthetic and documented any changes. Performed airway and anesthesia risk assessments. Anesthesia Type Anesthesia Type: General History Source History Obtained from:: Patient and Chart Anesthesia Focused Assessment* Temperature: 97.7 F Pulse Rate: 79 Blood Pressure: 129/93 Respiratory Rate: 16 Pulse Ox: 95 Oxygen Delivery Method: Room Air Airway Assessment Mouth opens: >3 cm Mallampati Score: IV Teeth Condition: Missing (Patient has couple missing teeth. Rest are tight.) Neck Range of motion (ROM): Full ROM Focused Labs Anesthesia Preop lab: CBC WBC 10.7 K/mm3 (4.4-11.0) 09/23/24 10:23 09/23/24 RBC 4.38 M/mm3 (4.2-5.4) 09/23/24 10:23 09/23/24 Hgb 13.0 g/dL (12.0-15.0) 09/23/24 10:23 09/23/24 Hct 40.0 % (37-47) 09/23/24 10:23 09/23/24 Plt Count 333 K/mm3 (150-450) 09/23/24 10:23 09/23/24 CHEMISTRY Potassium 3.9 mmol/L (3.3-5.1) 09/23/24 09:30 09/23/24 Sodium 142 mmol/L (133-145) 09/23/24 09:30 09/23/24 Magnesium 2.1 mg/dL (1.5-2.2) 09/23/24 09:30 09/23/24 BUN 24 mg/dL (4-19) H 09/23/24 09:30 09/23/24 Creatinine 1.10 mg/dL (0.70-1.20) 09/23/24 09:30 09/23/24 Glucose 105 mg/dL (70-99) H 09/23/24 09:30 09/23/24 POC Glucose 86 mg/dL (74-106) 09/29/24 08:44 09/29/24 TSH 2.240 uIU/mL (0.358-3.740) 03/13/24 10:33 1112/27 COAG Pre-Assessment Diagnosis/Proposed Procedure Planned Operative Procedure(s): Lap Total Robotic Hysterectomy BSO, Cystoscopy Anesthesia History Anesthesia History - supervisor sample: Anesthesia History - supervisor sample Hx Hospitalization No 09/15/24 14:08 Any Problems With Anesthesia No 09/15/24 14:08 Cholinesterase deficiency No 09/15/24 14:08 You/Your Family Experience No 09/15/24 14:08 fever (hyperthermia) with Relationship Recent Exposure to Contagious No 09/29/24 09:11 Disease Does patient have nerve No 09/15/24 14:08 stimulator Patient instructed to have device shut off --Does patient have Pacemaker No 09/29/24 09:11 or ICD? When Was Last Pacemaker Check QUESTION #4 FULL TEXT: You/Your Family Experience fever (hyperthermia) with Anesthesia Last Oral Intake Last Oral intake: Last Oral Intake NPO since 22:00 09/29/24 09:11 Meds taken in AM with sips of No 09/29/24 09:11 water? Meds patient instructed to take am of surgery PONV PONV - supervisor sample: PONV - supervisor sample Female Yes 09/15/24 14:08 HX of Motion Sickness No 09/15/24 14:08 HX of N/V After Surgery Yes 09/15/24 14:08 Non-Smoker Yes 09/15/24 14:08 Duration of Surgery greater Yes 09/15/24 14:08 than 60 minutes Number of Risk Factors 4 09/15/24 14:08 PONV Score Severe Risk 09/15/24 14:08 Height & Weight Height & Weight: Anesthesia: Height & Weight Height 5 ft 6 in 09/29/24 09:11 Weight: 91.2 kg 09/29/24 09:11 Body Mass Index (BMI) 32.4 09/29/24 09:11 Respiratory Assessment Respiratory Assessment - supervisor sample: Respiratory Tract Infection Hx - supervisor sample Hx Respiratory Tract Infection No 09/15/24 14:08 STOP Sleep Apnea STOP Sleep Apnea - supervisor sample: STOP Sleep Apnea - supervisor sample Hx Hypertension Yes 09/15/24 14:08 Hx Sleep Apnea No 09/15/24 14:08 CPAP BIPAP Do you snore loudly (louder No 09/15/24 14:08 than talking or can be heard Do you often feel tired/ No 09/15/24 14:08 fatigued/ sleepy during daytime? Has anyone observed you stop No 09/15/24 14:08 breathing during sleep? STOP Results Negative 09/15/24 14:08 QUESTION #5 FULL TEXT : Do you snore loudly (louder than talking or can be heard through closed doors)? 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 Specify any problems Hx of Preganancy in last 3 No 09/15/24 14:08 Months Nurse Filling Out Transfusion [facility] 09/15/24 14:08 & Questions: Date: 09/15/24 09/15/24 14:08 Time: 14:14 09/15/24 14:08 Patient unable to answer at this time (ie. confused, unrespo /Reproduction History /Reproductive History - supervisor sample: /Reproductive Hx- supervisor sample Hx Now No 09/15/24 14:08 Gestational Age (in weeks): EDC: Hx Hx Para Hx Section SAB No 09/23/24 09:38 Active Medications Active Medications: Current Medications Generic Name Dose Route Start Last Admin Trade Name Freq PRN Reason Stop Dose Admin Acetaminophen 1,000 mg 09/29/24 10:20 09/29/24 09:17 Acetaminophen 500 Mg Tablet PO 09/29/24 10:21 1,000 mg PREOP ONE Administration Celecoxib 400 mg 09/29/24 10:20 09/29/24 09:16 Celecoxib 200 Mg Capsule PO 09/29/24 10:21 400 mg PREOP ONE Administration Gabapentin 600 mg 09/29/24 10:20 09/29/24 09:17 Gabapentin 600 Mg Tablet PO 09/29/24 10:21 600 mg PREOP ONE Administration Lactated Ringer's 1,000 mls @ 40 mls/hr 09/29/24 10:20 09/29/24 09:03 IV 40 mls/hr .Q25H MICHELLE Administration Cefazolin Sodium 2 gm/ Sodium 110 mls @ 150 mls/hr 09/29/24 10:20 Chloride IV 09/29/24 11:03 INTRAOP ONE Lactated Ringer's 1,000 mls @ 70 mls/hr 09/29/24 10:20 IV .[id number] MICHELLE Magnesium Sulfate 1 gm/ 102 mls @ 408 mls/hr 09/29/24 10:20 09/29/24 09:02 Dextrose IV 09/29/24 10:34 408 mls/hr INTRAOP ONE Administration Insulin Human Lispro 0 unit 09/29/24 10:20 Insulin Lispro 100 Unit/Ml Insuln.Pen SC 09/29/24 18:00 Q4H PRN PRN BG >/= 180, SEE PROTOCOL Protocol Ondansetron HCl 4 mg 09/29/24 10:20 Ondansetron 4 Mg/2 Ml Vial IV 09/29/24 10:21 INTRAOP ONE Phenazopyridine HCl 190 mg 09/29/24 10:20 09/29/24 09:17 Phenazopyridine 95 Mg Tablet PO 09/29/24 10:21 190 mg PREOP ONE Administration Scopolamine HBr 1 patch 09/29/24 10:20 09/29/24 09:03 Scopolamine 1mg/72hr Patch TD 09/29/24 10:21 1 patch PREOP ONE Administration [facility] Medical History Wears glasses Diabetes Ambulates with cane High cholesterol Non-smoker Incisional hernia of anterior abdominal wall without obstruction or gangrene Arthritis Heart murmur Home Medications ?Medication ?Instructions ?Recorded ?Last Taken ?Type aspirin 81 mg tablet,delayed 81 mg PO QDAY 05/15/17 History release (Adult Low Dose Aspirin) calcium 600 mg (as 1 cap PO DAILY 05/15/1709/04 History carbonate)-vitamin D3 5 mcg (200 unit) capsule lisinopril 20 2 tab PO DAILY 09/28/2309/04 History mg-hydrochlorothiazide 12.5 mg tablet amlodipine 5 mg tablet 5 mg PO QHS 01/22/24 5 History atorvastatin 10 mg tablet 10 mg PO QHS 01/22/24 History turmeric 400 mg capsule 400 mg PO DAILY 01/22/24 History Held on 09/29/24. Instructions: Resume on 10/06/24. antiarthritic combination no.2 900 1,500 mg PO DAILY 0 01/24/24 09/28/24 History mg tablet (glucosamine-chondroitin) cholecalciferol (vitamin D3) 125 125 mcg PO QDAY 01/2309/28/24 History mcg (5,000 unit) capsule metformin 500 mg tablet 500 mg PO DAILY 09/15/24 History docusate sodium 100 mg capsule 100 mg PO DAILY #14 cap s 09/29/24 Unknown Rx (Colace) naproxen 500 mg tablet 500 mg PO BID PRN pain (scal e 09/29/24 Unknown Rx score 4-6) #30 tabs oxycodone-acetaminophen 5 mg-325 1 tab PO Q4H PRN pain (scale score 09/29/24 Unknown Rx mg tablet (Percocet) 7-10) 7 days #20 tabs Allergy/AdvReac Type Severity Reaction Status Date / Time hydrocodone (From Vicodin) Allergy Unknown Unknown Verified 09/29/24 09:06 Family History Mother Hypertension Father Diabetes Son Seizures Surgical History H/O total knee replacement Status post hysteroscopic polypectomy History of incisional hernia repair Dislocation, shoulder closed S/P appendectomy S/P cholecystectomy Social History number of children: 6 Smoking Status: Never smoker second hand exposure: No alcohol intake: never substance use type: does not use caffeine: No what type of physical activity do you participate in: none frequency: does not exercise seatbelt use: always additional social history: Sanchez Review of Systems (Anesthesia) ROS Narrative System reviewed and no additional complaints, except as documented. 09/29/24939 <Electronically signed by John ryder MD> Date _ John Jung MD Cosigner Signature: Date CC: ~ Signed [facility] Work Phone: 1(309) 531-671905-27-2025 Discharge summary Author Allyson Deleon [facility] Note Date/Time September 29, 2024 9:28a [facility] Medical Records Department [address] [place] [id number] Instructions for Home/Discharge Instructions 09/29/24924 MR#: [id number] Acct: [id number] Name: FRANCHESKA CROSS Rep #:[id number] : 1955 69 From: Allyson Hercules DO PCP: Dr. Janey Camp MD Status:REG [facility] Discharge Instructions Diet Discharge Diet: No restrictions DC O2, CPAP, BIPAP needs Home O2 Discharge instructions: No Dressing / Incision Discharge Activity: May Shower May resume sexual activity in: 8 weeks Weight Bearing Status: Full weight bearing Lifting Restrictions: 10 pounds for 2 weeks Dressing / Incision Call your doctor if your incision/area has: Continuous Slow Oozing, Sudden Increased Bleeding, Increased Pain/ Swelling, Increased Redness and Foul Smelling Discharge Call your doctor if you observe: Fever of 101 or Higher, Using more than 1 pad per hour, Shortness of breath, Chest pain and Uncontrolled pain Suture Line Care: Avoid Pulling/Pushing and Avoid Pinching/Bending Remove Dressing in: 1 week (if present) Cleanse incision/area with: Soap & Water and Keep Dressing Clean & Dry Follow Up Care Please Follow Up With: Allyson Hercules DO When: Call to make an appointment with your doctor for a postop visit in 2 and 6weeks Test Results: Test results from this visit will be discussed in further detail at your follow- up appointment, if applicable. Discharge Plan Admission Primary Reason for Your Visit: hysterectomy Attending Provider: Allyson Hercules Primary Care Provider: Janey Camp Instructions Print Language: Greek Discharge Orders/Prescriptions Prescriptions: New docusate sodium [Colace] 100 mg capsule 100 mg PO DAILY Qty: 14 0RF naproxen 500 mg tablet 500 mg PO BID PRN (Reason: pain (scale score 4-6)) Qty: 30 0RF oxycodone-acetaminophen [Percocet] 5-325 mg tablet 1 tab PO Q4H PRN (Reason: pain (scale score 7-10)) 7 Days Qty: 20 0RF Continued aspirin [Adult Low Dose Aspirin] 81 mg tablet,delayed release (DR/EC) 81 mg PO QDAY calcium carbonate-vitamin D3 600 mg calcium- 200 unit capsule 1 cap PO DAILY cholecalciferol (vitamin D3) 125 mcg (5,000 unit) capsule 125 mcg PO QDAY glucosamine-chondroitin 900 mg tablet 1,500 mg PO DAILY amlodipine 5 mg tablet 5 mg PO QHS atorvastatin 10 mg tablet 10 mg PO QHS metformin 500 mg tablet 500 mg PO DAILY lisinopril-hydrochlorothiazide 20-12.5 mg tablet 2 tab PO DAILY Held turmeric 400 mg capsule 400 mg PO DAILY Hold Instructions: Resume on 10/06/24. Discontinued megestrol 40 mg tablet 40 mg PO BID Qty: 60 5RF Other Ambulatory Orders: 12 Lead EKG (Routine) Timeframe: 20240923 Location: None Selected Ordered By: Dr. Allyson Hercules Referrals / Follow Up: Janey Camp MD [Primary Care Provider] - Disposition Disposition (needs filled in before D/C Order can be placed): Home, Self Care 09/29/24927<Electronically signed by Allyson Hercules DO>Allyson Hercules DO CC: Dr. Janey Camp MD ~ Signed [facility] Work Phone: [phone] Discharge summary Author Allyson Deleon [facility] Note Date/Time September 29, 2024 9:28a m [facility] Medical Records Department [address] [place] [address] Instructions for Home/Discharge Instructions 09/29/24924 MR#: [id number] Acct: [id number] Name: FRANCHESKA CROSS Rep #:[id number] : 1955 69 From: Allyson Hercules DO PCP: Dr. Janey Camp MD Status:REG [facility] Discharge Instructions Diet Discharge Diet: No restrictions DC O2, CPAP, BIPAP needs Home O2 Discharge instructions: No Dressing / Incision Discharge Activity: May Shower May resume sexual activity in: 8 weeks Weight Bearing Status: Full weight bearing Lifting Restrictions: 10 pounds for 2 weeks Dressing / Incision Call your doctor if your incision/area has: Continuous Slow Oozing, Sudden Increased Bleeding, Increased Pain/ Swelling, Increased Redness and Foul Smelling Discharge Call your doctor if you observe: Fever of 101 or Higher, Using more than 1 pad per hour, Shortness of breath, Chest pain and Uncontrolled pain Suture Line Care: Avoid Pulling/Pushing and Avoid Pinching/Bending Remove Dressing in: 1 week (if present) Cleanse incision/area with: Soap & Water and Keep Dressing Clean & Dry Follow Up Care Please Follow Up With: Allyson Hercules DO When: Call to make an appointment with your doctor for a postop visit in 2 and 6weeks Test Results: Test results from this visit will be discussed in further detail at your follow- up appointment, if applicable. Discharge Plan Admission Primary Reason for Your Visit: hysterectomy Attending Provider: Allyson Hercules Primary Care Provider: Janey Camp Instructions Print Language: Greek Discharge Orders/Prescriptions Prescriptions: New docusate sodium [Colace] 100 mg capsule 100 mg PO DAILY Qty: 14 0RF naproxen 500 mg tablet 500 mg PO BID PRN (Reason: pain (scale score 4-6)) Qty: 30 0RF oxycodone-acetaminophen [Percocet] 5-325 mg tablet 1 tab PO Q4H PRN (Reason: pain (scale score 7-10)) 7 Days Qty: 20 0RF Continued aspirin [Adult Low Dose Aspirin] 81 mg tablet,delayed release (DR/EC) 81 mg PO QDAY calcium carbonate-vitamin D3 600 mg calcium- 200 unit capsule 1 cap PO DAILY cholecalciferol (vitamin D3) 125 mcg (5,000 unit) capsule 125 mcg PO QDAY glucosamine-chondroitin 900 mg tablet 1,500 mg PO DAILY amlodipine 5 mg tablet 5 mg PO QHS atorvastatin 10 mg tablet 10 mg PO QHS metformin 500 mg tablet 500 mg PO DAILY lisinopril-hydrochlorothiazide 20-12.5 mg tablet 2 tab PO DAILY Held turmeric 400 mg capsule 400 mg PO DAILY Hold Instructions: Resume on 10/06/24. Discontinued megestrol 40 mg tablet 40 mg PO BID Qty: 60 5RF Other Ambulatory Orders: 12 Lead EKG (Routine) Timeframe: 20240923 Location: None Selected Ordered By: Dr. Allyson Hercules Referrals / Follow Up: Janey Camp MD [Primary Care Provider] - Disposition Disposition (needs filled in before D/C Order can be placed): Home, Self Care 09/29/24 0928<Electronically signed by Allyson Hercules DO>Allyson Hercules DO CC: Dr. Janey Camp MD ~ Signed [facility] Work Phone: [phone] 245-709405-27-2025 History and physical note [facility] Medical Records Department [address] [facility] [place] [address] History & Physical Exam 09/29/24 0915 MR#: [id number] Acct: [id number] Name: FRANCHESKA CROSS Rep #:[id number] : 1955 69 From: Allyson Hercules DO PCP: Dr. Janey Camp MD Status:REG [facility] Location: [place] [address] History and Physical Date of Admission: 09/29/24 Intake Vital Signs 08/14/2512:54 09/23/2508:37 09/23/2508:38 Height 5 ft 6 in 5 ft 6 in 5 ft 6 in Weight: 196 lb 198 lb 4 oz BMI 31.6 32.0 BP 116/70 113/75 Intake Visit Reasons: TRH BSO cyst [employer] Required: No Is patient in pain?: No Allergies hydrocodone (From Vicodin) Allergy (Unknown, Verified 09/23/24 09:36) Unknown Medications ?Medication ?Instructions ?Recorded ?Confirmed ?Type aspirin 81 mg tablet,delayed 81 mg PO QDAY 05/15/17 09/23/24 History release (Adult Low Dose Aspirin) calcium 600 mg (as 1 cap PO DAILY 05/15/17 09/23/24 History carbonate)-vitamin D3 5 mcg (200 unit) capsule lisinopril 20 2 tab PO DAILY 09/28/23 09/23/24 History mg-hydrochlorothiazide 12.5 mg tablet amlodipine 5 mg tablet 5 mg PO QHS 01/22/24 09/23/24 History atorvastatin 10 mg tablet 10 mg PO QHS 01/22/24 09/23/24 History turmeric 400 mg capsule 400 mg PO DAILY 01/22/24 09/23/24 Histor y antiarthritic combination no.2 900 1,500 mg PO DAILY 01/24/24 09/23/24 Hist ory mg tablet (glucosamine-chondroitin) cholecalciferol (vitamin D3) 125 125 mcg PO QDAY 01/24/24 09/23/24 Histor y mcg (5,000 unit) capsule megestrol 40 mg tablet 40 mg PO BID #60 tabs 08/04/24 09/23/24 Rx metformin 500 mg tablet 500 mg PO DAILY 09/15/24 09/23/24 Histor y Is last menstrual period known: No Post menopausal: Yes Patient : No : No PFSH Medical History Wears glasses Diabetes Ambulates with cane High cholesterol Non-smoker Incisional hernia of anterior abdominal wall without obstruction or gangrene Arthritis Heart murmur Surgical History H/O total knee replacement Status post hysteroscopic polypectomy History of incisional hernia repair Dislocation, shoulder closed S/P appendectomy S/P cholecystectomy Family History Mother HypertensionFather DiabetesSon Seizures Social History number of children: 6 Smoking Status: Never smoker second hand exposure: No alcohol intake: never substance use type: does not use caffeine: No what type of physical activity do you participate in: none frequency: does not exercise seatbelt use: always additional social history: Sanchez HPI TRH BSO cyst Details: FRANCHESKA CROSS is a 69 year old who presents for pre-op robotic hyst. She is a (all vaginal deliveries) who has on and off vaginal bleeding ( postmenopausal bleeding). She had a d and c in february that showed hyperplasia, she has been on megace since. she has had an increase in bleeding since the weekend. she has been feeling good no cramping. she has gone through two diapers a day two days over the weekend and now is only spotting. EMB was easily obtained in the office by Dr Beal and was benign. Ultrasound shows a cervical fibroid that is likely degrading. EXAM: US Pelvis Transvaginal CLINICAL INDICATION: AUB, POST D C TECHNIQUE: Real-time transvaginal pelvic ultrasound with image documentation. Transvaginal imaging was used for better evaluation of the endometrium and adnexa. COMPARISON: No relevant prior studies available. FINDINGS: UTERUS/CERVIX: Cervical fibroid measuring 4.6 x 4.0 x 3.8 cm. Normal endometrial stripe thickness. The uterus measures 7.7 x 5.3 x 3.7 cm. RIGHT OVARY: Right ovary not visualized. LEFT OVARY: Left ovary not visualized. FREE FLUID: No fluid. BLADDER: Empty bladder which cannot be evaluated with this probe. US/Transvaginal Non- IMPRESSION: Fibroid as above. History Past Pregnancies Del. Date Name GA/Weeks Outcome Route Bth Weight Gen Labor Lgth Anesthesia Del Locatn Provider FOB Unknown Aelx Unknown Kyle Unknown Hever Unknown Huang Unknown Syd Unknown Liliana ROS Const ROS Unobtainable: All systems reviewed & are unremarkable except as noted in H Resp Resp: Reports system reviewed and no additional complaints, except as documented; Denies cough GI GI: Reports as per HPI Psych Psych: Reports system reviewed and no additional complaints, except as documented Exam Const General: cooperative, healthy appearing, comfortable and no acute distress Resp Effort & Inspection: normal respiratory effort Skin General: no rashes or lesions noted Psych Appearance: grossly normal Speech and Movement: speech and movement normal Coding Level of Care Code Off vis,est,level 4 Diagnoses Fibroid of cervix D25.9 Status post hysteroscopic polypectomy Z98.890 Primary hypertension I10 Hypertension type: primary hypertension Postmenopausal bleeding N95.0 Assessment and Plan Assessment and Plan (1) Fibroid of cervix: Status: Acute Comment: on US, ordered MRI. (2) Status post hysteroscopic polypectomy: Status: Acute Comment: simple hyperplasia without atypia (3) HTN (hypertension): Status: Chronic Qualifiers: Hypertension type: primary hypertension Qualified Code(s): I10 - Essential (primary) hypertension (4) Postmenopausal bleeding: Status: Acute Comment: recurrent early heavy bleeding breakthrough on megace simple hyperplasia without atypia. s/p d and c hysteroscopy. plan megace x 6 months then emb. Orders: Orders CBC W/Diff, Automated Today N95.0 - Postmenopausal bleeding Plan After discussing the patient's diagnosis and treatment plan options, patient wishes to proceed withsurgical management. I have discussed with the patient the risks, benefits, and alternatives of theprocedure which include but are notlimited to risks of anesthesia, bleeding, infection, possible damage to bowel, bladder, or surrounding vasculature which could lead to additional surgery to evaluate any complications. Patient agrees to procedure and wishes to proceed. ACOG/uptodate references given for additional information regarding procedure. MRI done today -pending plan is for a total robotic hyst, bso, cysto. She may need to see Dr. Melendez for urinary incontinence after she heals from this surgery. 09/29/24 1006 Cosigner Signature (if applicable): CC: Dr. Janey Camp MD; Dr. Allyson Hercules DO~ Signed [facility]05-27-2025 Consult note [facility] Medical Records Department [address] [place] [address] Pre-Anesthesia Evaluation 09/29/24 0958 MR#: [id number] Acct: [id number] Name: FRANCHESKA CROSS Rep #:[id number] : 1955 69 From: Marcelo Vick CRNA PCP: Dr. Janey Camp MD Status:REG SDC Y Race: C Location: [place] [address] ASA Classification* ASA Classification ASA Classification: 3 Assessment & Plan Anesthesia* Anesthesia Assessment Anesthesia Assessment: Discussed sedation and/or anesthesia options, risks, benefits, and alternatives with patient/parents/legal guardian/POA. Questions invited. The patient/parents/legal guardian/POA seems to understand and agrees to proceedwith anesthesia plan. Reviewed the physical assessment, medical history, allergy history and patient home medications list prior to surgery/procedure/anesthetic and documented any changes. Performed airway and anesthesia risk assessments. Anesthesia Type Anesthesia Type: General History Source History Obtained from:: Patient and Chart Anesthesia Focused Assessment* Temperature: 97.7 F Pulse Rate: 79 Blood Pressure: 129/93 Respiratory Rate: 16 Pulse Ox: 95 Oxygen Delivery Method: Room Air Airway Assessment Mouth opens: >3 cm Mallampati Score: II Teeth Condition: Intact Neck Range of motion (ROM): Full ROM Focused Labs Anesthesia Preop lab: CBC WBC 10.7 K/mm3 (4.4-11.0) 09/23/24 10:23 09/23/24 RBC 4.38 M/mm3 (4.2-5.4) 09/23/24 10:23 09/23/24 Hgb 13.0 g/dL (12.0-15.0) 09/23/24 10:23 09/23/24 Hct 40.0 % (37-47) 09/23/24 10:23 09/23/24 Plt Count 333 K/mm3 (150-450) 09/23/24 10:23 09/23/24 CHEMISTRY Potassium 3.9 mmol/L (3.3-5.1) 09/23/24 09:30 09/23/24 Sodium 142 mmol/L (133-145) 09/23/24 09:30 09/23/24 Magnesium 2.1 mg/dL (1.5-2.2) 09/23/24 09:30 09/23/24 BUN 24 mg/dL (4-19) H 09/23/24 09:30 09/23/24 Creatinine 1.10 mg/dL (0.70-1.20) 09/23/24 09:30 09/23/24 Glucose 105 mg/dL (70-99) H 09/23/24 09:30 09/23/24 POC Glucose 86 mg/dL (74-106) 09/29/24 08:44 09/29/24 TSH 2.240 uIU/mL (0.358-3.740) 03/13/24 10:33 11/0 12/27 COAG Pre-Assessment Diagnosis/Proposed Procedure Planned Operative Procedure(s): Lap Total Robotic Hysterectomy BSO, Cystoscopy Anesthesia History Anesthesia History - supervisor sample: Anesthesia History - supervisor sample Hx Hospitalization No 09/15/24 14:08 Any Problems With Anesthesia No 09/15/24 14:08 Cholinesterase deficiency No 09/15/24 14:08 You/Your Family Experience No 09/15/24 14:08 fever (hyperthermia) with Relationship Recent Exposure to Contagious No 09/29/24 09:11 Disease Does patient have nerve No 09/15/24 14:08 stimulator Patient instructed to have device shut off --Does patient have Pacemaker No 09/29/24 09:11 or ICD? When Was Last Pacemaker Check QUESTION #4 FULL TEXT: You/Your Family Experience fever (hyperthermia) with Anesthesia Last Oral Intake Last Oral intake: Last Oral Intake NPO since 22:00 09/29/24 09:11 Meds taken in AM with sips of No 09/29/24 09:11 water? Meds patient instructed to take am of surgery PONV PONV - supervisor sample: PONV - supervisor sample Female Yes 09/15/24 14:08 HX of Motion Sickness No 09/15/24 14:08 HX of N/V After Surgery Yes 09/15/24 14:08 Non-Smoker Yes 09/15/24 14:08 Duration of Surgery greater Yes 09/15/24 14:08 than 60 minutes Number of Risk Factors 4 09/15/24 14:08 PONV Score Severe Risk 09/15/24 14:08 Height & Weight Height & Weight: Anesthesia: Height & Weight Height 5 ft 6 in 09/29/24 09:11 Weight: 91.2 kg 09/29/24 09:11 Body Mass Index (BMI) 32.4 09/29/24 09:11 Respiratory Assessment Respiratory Assessment - supervisor sample: Respiratory Tract Infection Hx - supervisor sample Hx Respiratory Tract Infection No 09/15/24 14:08 STOP Sleep Apnea STOP Sleep Apnea - supervisor sample: STOP Sleep Apnea - supervisor sample Hx Hypertension Yes 09/15/24 14:08 Hx Sleep Apnea No 09/15/24 14:08 CPAP BIPAP Do you snore loudly (louder No 09/15/24 14:08 than talking or can be heard Do you often feel tired/ No 09/15/24 14:08 fatigued/ sleepy during daytime? Has anyone observed you stop No 09/15/24 14:08 breathing during sleep? STOP Results Negative 09/15/24 14:08 QUESTION #5 FULL TEXT : Do you snore loudly (louder than talking or can be heard through closeddoors)? 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 Specify any problems Hx of Preganancy in last 3 No 09/15/24 14:08 Months Nurse Filling Out Transfusion [facility] 09/15/24 14:08 & Questions: Date: 09/15/24 09/15/24 14:08 Time: 14:14 09/15/24 14:08 Patient unable to answer at this time (ie. confused, unrespo /Reproduction History /Reproductive History - supervisor sample: /Reproductive Hx- supervisor sample Hx Now No 09/15/24 14:08 Gestational Age (in weeks): EDC: Hx Hx Para Hx Section SAB No 09/23/24 09:38 Active Medications Active Medications: Current Medications Generic Name Dose Route Start Last Admin Trade Name Freq PRN Reason Stop Dose Admin Acetaminophen 1,000 mg 09/29/24 10:20 09/29/24 09:17 Acetaminophen 500 Mg Tablet PO 09/29/24 10:21 1,000 mg PREOP ONE Administration Celecoxib 400 mg 09/29/24 10:20 09/29/24 09:16 Celecoxib 200 Mg Capsule PO 09/29/24 10:21 400 mg PREOP ONE Administration Gabapentin 600 mg 09/29/24 10:20 09/29/24 09:17 Gabapentin 600 Mg Tablet PO 09/29/24 10:21 600 mg PREOP ONE Administration Lactated Ringer's 1,000 mls @ 40 mls/hr 09/29/24 10:20 09/29/24 09:03 IV 40 mls/hr .Q25H MICHELLE Administration Cefazolin Sodium 2 gm/ Sodium 110 mls @ 150 mls/hr 09/29/24 10:20 Chloride IV 09/29/24 11:03 INTRAOP ONE Lactated Ringer's 1,000 mls @ 70 mls/hr 09/29/24 10:20 IV .[id number] MICHELLE Magnesium Sulfate 1 gm/ 102 mls @ 408 mls/hr 09/29/24 10:20 09/29/24 09:02 Dextrose IV 09/29/24 10:34 408 mls/hr INTRAOP ONE Administration Insulin Human Lispro 0 unit 09/29/24 10:20 Insulin Lispro 100 Unit/Ml Insuln.Pen SC 09/29/24 18:00 Q4H PRN PRN BG >/= 180, SEE PROTOCOL Protocol Ondansetron HCl 4 mg 09/29/24 10:20 Ondansetron 4 Mg/2 Ml Vial IV 09/29/24 10:21 INTRAOP ONE Phenazopyridine HCl 190 mg 09/29/24 10:20 09/29/24 09:17 Phenazopyridine 95 Mg Tablet PO 09/29/24 10:21 190 mg PREOP ONE Administration Scopolamine HBr 1 patch 09/29/24 10:20 09/29/24 09:03 Scopolamine 1mg/72hr Patch TD 09/29/24 10:21 1 patch PREOP ONE [facility] Medical History Wears glasses Diabetes Ambulates with cane High cholesterol Non-smoker Incisional hernia of anterior abdominal wall without obstruction or gangrene Arthritis Heart murmur Home Medications ?Medication ?Instructions ?Recorded ?Last Taken ?Type aspirin 81 mg tablet,delayed 81 mg PO QDAY 05/15/17 History release (Adult Low Dose Aspirin) calcium 600 mg (as 1 cap PO DAILY 05/15/1709/04 History carbonate)-vitamin D3 5 mcg (200 unit) capsule lisinopril 20 2 tab PO DAILY 09/28/2309/04 History mg-hydrochlorothiazide 12.5 mg tablet amlodipine 5 mg tablet 5 mg PO QHS 01/22/24 5 History atorvastatin 10 mg tablet 10 mg PO QHS 01/22/24 History turmeric 400 mg capsule 400 mg PO DAILY 01/22/24 History Held on 09/29/24. Instructions: Resume on 10/06/24. antiarthritic combination no.2 900 1,500 mg PO DAILY 0 01/24/24 09/28/24 History mg tablet (glucosamine-chondroitin) cholecalciferol (vitamin D3) 125 125 mcg PO QDAY 01/2309/28/24 History mcg (5,000 unit) capsule metformin 500 mg tablet 500 mg PO DAILY 09/15/24 History docusate sodium 100 mg capsule 100 mg PO DAILY #14 cap s 09/29/24 Unknown Rx (Colace) naproxen 500 mg tablet 500 mg PO BID PRN pain (scal e 09/29/24 Unknown Rx score 4-6) #30 tabs oxycodone-acetaminophen 5 mg-325 1 tab PO Q4H PRN pain (scale score 09/29/24 Unknown Rx mg tablet (Percocet) 7-10) 7 days #20 tabs Allergy/AdvReac Type Severity Reaction Status Date / Time hydrocodone (From Vicodin) Allergy Unknown Unknown Verified 09/29/24 09:06 Family History Mother Hypertension Father Diabetes Son Seizures Surgical History H/O total knee replacement Status post hysteroscopic polypectomy History of incisional hernia repair Dislocation, shoulder closed S/P appendectomy S/P cholecystectomy Social History number of children: 6 Smoking Status: Never smoker second hand exposure: No alcohol intake: never substance use type: does not use caffeine: No what type of physical activity do you participate in: none frequency: does not exercise seatbelt use: always additional social history: Sanchez Review of Systems (Anesthesia) ROS Narrative System reviewed and no additional complaints, except as documented. 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 Janey Camp MD Status:REG [facility] Y Race: C Location: [place] [address] ASA Classification* ASA Classification ASA Classification: 2 Assessment & Plan Anesthesia* Anesthesia Assessment Anesthesia Assessment: Discussed sedation and/or anesthesia options, risks, benefits, and alternatives with patient/parents/legal guardian/POA. Questions invited. The patient/parents/legal guardian/POA seems to understand and agrees to proceedwith anesthesia plan. Reviewed the physical assessment, medical history, allergy history and patient home medications list prior to surgery/procedure/anesthetic and documented any changes. Performed airway and anesthesia risk assessments. Anesthesia Type Anesthesia Type: General History Source History Obtained from:: Patient and Chart Anesthesia Focused Assessment* Temperature: 97.7 F Pulse Rate: 79 Blood Pressure: 129/93 Respiratory Rate: 16 Pulse Ox: 95 Oxygen Delivery Method: Room Air Airway Assessment Mouth opens: >3 cm Mallampati Score: IV Teeth Condition: Missing (Patient has couple missing teeth. Rest are tight.) Neck Range of motion (ROM): Full ROM Focused Labs Anesthesia Preop lab: CBC WBC 10.7 K/mm3 (4.4-11.0) 09/23/24 10:09/23/24 RBC 4.38 M/mm3 (4.2-5.4) 09/23/24 10:09/23/24 Hgb 13.0 g/dL (12.0-15.0) 09/23/24 10:09/23/24 Hct 40.0 % (37-47) 09/23/24 10:09/23/24 Plt Count 333 K/mm3 (150-450) 09/23/24 10:23 09/23/24 CHEMISTRY Potassium 3.9 mmol/L (3.3-5.1) 09/23/24 09:30 09/23/24 Sodium 142 mmol/L (133-145) 09/23/24 09:30 09/23/24 Magnesium 2.1 mg/dL (1.5-2.2) 09/23/24 09:30 09/23/24 BUN 24 mg/dL (4-19) H 09/23/24 09:30 09/23/24 Creatinine 1.10 mg/dL (0.70-1.20) 09/23/24 09:30 09/23/24 Glucose 105 mg/dL (70-99) H 09/23/24 09:30 09/23/24 POC Glucose 86 mg/dL (74-106) 09/29/24 08:44 09/29/24 TSH 2.240 uIU/mL (0.358-3.740) 03/13/24 10:33 1112/27 COAG Pre-Assessment Diagnosis/Proposed Procedure Planned Operative Procedure(s): Lap Total Robotic Hysterectomy BSO, Cystoscopy Anesthesia History Anesthesia History - supervisor sample: Anesthesia History - supervisor sample Hx Hospitalization No 09/15/24 14:08 Any Problems With Anesthesia No 09/15/24 14:08 Cholinesterase deficiency No 09/15/24 14:08 You/Your Family Experience No 09/15/24 14:08 fever (hyperthermia) with Relationship Recent Exposure to Contagious No 09/29/24 09:11 Disease Does patient have nerve No 09/15/24 14:08 stimulator Patient instructed to have device shut off --Does patient have Pacemaker No 09/29/24 09:11 or ICD? When Was Last Pacemaker Check QUESTION #4 FULL TEXT: You/Your Family Experience fever (hyperthermia) with Anesthesia Last Oral Intake Last Oral intake: Last Oral Intake NPO since 22:00 09/29/24 09:11 Meds taken in AM with sips of No 09/29/24 09:11 water? Meds patient instructed to take am of surgery PONV PONV - supervisor sample: PONV - supervisor sample Female Yes 09/15/24 14:08 HX of Motion Sickness No 09/15/24 14:08 HX of N/V After Surgery Yes 09/15/24 14:08 Non-Smoker Yes 09/15/24 14:08 Duration of Surgery greater Yes 09/15/24 14:08 than 60 minutes Number of Risk Factors 4 09/15/24 14:08 PONV Score Severe Risk 09/15/24 14:08 Height & Weight Height & Weight: Anesthesia: Height & Weight Height 5 ft 6 in 09/29/24 09:11 Weight: 91.2 kg 09/29/24 09:11 Body Mass Index (BMI) 32.4 09/29/24 09:11 Respiratory Assessment Respiratory Assessment - supervisor sample: Respiratory Tract Infection Hx - supervisor sample Hx Respiratory Tract Infection No 09/15/24 14:08 STOP Sleep Apnea STOP Sleep Apnea - supervisor sample: STOP Sleep Apnea - supervisor sample Hx Hypertension Yes 09/15/24 14:08 Hx Sleep Apnea No 09/15/24 14:08 CPAP BIPAP Do you snore loudly (louder No 09/15/24 14:08 than talking or can be heard Do you often feel tired/ No 09/15/24 14:08 fatigued/ sleepy during daytime? Has anyone observed you stop No 09/15/24 14:08 breathing during sleep? STOP Results Negative 09/15/24 14:08 QUESTION #5 FULL TEXT : Do you snore loudly (louder than talking or can be heard through closeddoors)? 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 Specify any problems Hx of Preganancy in last 3 No 09/15/24 14:08 Months Nurse Filling Out Transfusion [facility] 09/15/24 14:08 & Questions: Date: 09/15/24 09/15/24 14:08 Time: 14:14 09/15/24 14:08 Patient unable to answer at this time (ie. confused, unrespo /Reproduction History /Reproductive History - supervisor sample: /Reproductive Hx- supervisor sample Hx Now No 09/15/24 14:08 Gestational Age (in weeks): EDC: Hx Hx Para Hx Section SAB No 09/23/24 09:38 Active Medications Active Medications: Current Medications Generic Name Dose Route Start Last Admin Trade Name Freq PRN Reason Stop Dose Admin Acetaminophen 1,000 mg 09/29/24 10:20 09/29/24 09:17 Acetaminophen 500 Mg Tablet PO 09/29/24 10:21 1,000 mg PREOP ONE Administration Celecoxib 400 mg 09/29/24 10:20 09/29/24 09:16 Celecoxib 200 Mg Capsule PO 09/29/24 10:21 400 mg PREOP ONE Administration Gabapentin 600 mg 09/29/24 10:20 09/29/24 09:17 Gabapentin 600 Mg Tablet PO 09/29/24 10:21 600 mg PREOP ONE Administration Lactated Ringer's 1,000 mls @ 40 mls/hr 09/29/24 10:20 09/29/24 09:03 IV 40 mls/hr .Q25H MICHELLE Administration Cefazolin Sodium 2 gm/ Sodium 110 mls @ 150 mls/hr 09/29/24 10:20 Chloride IV 09/29/24 11:03 INTRAOP ONE Lactated Ringer's 1,000 mls @ 70 mls/hr 09/29/24 10:20 IV .[id number] MICHELLE Magnesium Sulfate 1 gm/ 102 mls @ 408 mls/hr 09/29/24 10:20 09/29/24 09:02 Dextrose IV 09/29/24 10:34 408 mls/hr INTRAOP ONE Administration Insulin Human Lispro 0 unit 09/29/24 10:20 Insulin Lispro 100 Unit/Ml Insuln.Pen SC 09/29/24 18:00 Q4H PRN PRN BG >/= 180, SEE PROTOCOL Protocol Ondansetron HCl 4 mg 09/29/24 10:20 Ondansetron 4 Mg/2 Ml Vial IV 09/29/24 10:21 INTRAOP ONE Phenazopyridine HCl 190 mg 09/29/24 10:20 09/29/24 09:17 Phenazopyridine 95 Mg Tablet PO 09/29/24 10:21 190 mg PREOP ONE Administration Scopolamine HBr 1 patch 09/29/24 10:20 09/29/24 09:03 Scopolamine 1mg/72hr Patch TD 09/29/24 10:21 1 patch PREOP ONE Administration [facility] Medical History Wears glasses Diabetes Ambulates with cane High cholesterol Non-smoker Incisional hernia of anterior abdominal wall without obstruction or gangrene Arthritis Heart murmur Home Medications ?Medication ?Instructions ?Recorded ?Last Taken ?Type aspirin 81 mg tablet,delayed 81 mg PO QDAY 05/15/17 History release (Adult Low Dose Aspirin) calcium 600 mg (as 1 cap PO DAILY 05/15/1709/04 History carbonate)-vitamin D3 5 mcg (200 unit) capsule lisinopril 20 2 tab PO DAILY 09/28/2309/04 History mg-hydrochlorothiazide 12.5 mg tablet amlodipine 5 mg tablet 5 mg PO QHS 01/22/24 5 History atorvastatin 10 mg tablet 10 mg PO QHS 01/22/24 History turmeric 400 mg capsule 400 mg PO DAILY 01/22/24 History Held on 09/29/24. Instructions: Resume on 10/06/24. antiarthritic combination no.2 900 1,500 mg PO DAILY 0 01/24/24 09/28/24 History mg tablet (glucosamine-chondroitin) cholecalciferol (vitamin D3) 125 125 mcg PO QDAY 01/2309/28/24 History mcg (5,000 unit) capsule metformin 500 mg tablet 500 mg PO DAILY 09/15/24 History docusate sodium 100 mg capsule 100 mg PO DAILY #14 cap s 09/29/24 Unknown Rx (Colace) naproxen 500 mg tablet 500 mg PO BID PRN pain (scal e 09/29/24 Unknown Rx score 4-6) #30 tabs oxycodone-acetaminophen 5 mg-325 1 tab PO Q4H PRN pain (scale score 09/29/24 Unknown Rx mg tablet (Percocet) 7-10) 7 days #20 tabs Allergy/AdvReac Type Severity Reaction Status Date / Time hydrocodone (From Vicodin) Allergy Unknown Unknown Verified 09/29/24 09:06 Family History Mother Hypertension Father Diabetes Son Seizures Surgical History H/O total knee replacement Status post hysteroscopic polypectomy History of incisional hernia repair Dislocation, shoulder closed S/P appendectomy S/P cholecystectomy Social History number of children: 6 Smoking Status: Never smoker second hand exposure: No alcohol intake: never substance use type: does not use caffeine: No what type of physical activity do you participate in: none frequency: does not exercise seatbelt use: always additional social history: Sanchez Review of Systems (Anesthesia) ROS Narrative System reviewed and no additional complaints, except as documented. 09/29/24939 britni GARCIA> Date _ John Jung MD Cosigner Signature: Date CC: ~ Signed [facility]05-27-2025 Discharge summary [facility] Medical Records Department [address] [place] [address] Instructions for Home/Discharge Instructions 09/29/24 0925 MR#: [id number] Acct: [id number] Name: FRANCHESKA CROSS Rep #:[id number] : 1955 69 From: Allyson Hercules DO PCP: Dr. Janey Camp MD Status:REG [facility] Discharge Instructions Diet Discharge Diet: No restrictions DC O2, CPAP, BIPAP needs Home O2 Discharge instructions: No Dressing / Incision Discharge Activity: May Shower May resume sexual activity in: 8 weeks Weight Bearing Status: Full weight bearing Lifting Restrictions: 10 pounds for 2 weeks Dressing / Incision Call your doctor if your incision/area has: Continuous Slow Oozing, Sudden Increased Bleeding, Increased Pain/ Swelling, Increased Redness and Foul Smelling Discharge Call your doctor if you observe: Fever of 101 or Higher, Using more than 1 pad per hour, Shortness of breath, Chest pain and Uncontrolled pain Suture Line Care: Avoid Pulling/Pushing and Avoid Pinching/Bending Remove Dressing in: 1 week (if present) Cleanse incision/area with: Soap & Water and Keep Dressing Clean & Dry Follow Up Care Please Follow Up With: Allyson Hercules DO When: Call to make an appointment with your doctor for a postop visit in 2 and 6weeks Test Results: Test results from this visit will be discussed in further detail at your follow- up appointment, if applicable. Discharge Plan Admission Primary Reason for Your Visit: hysterectomy Attending Provider: Allyson Hercules Primary Care Provider: Janey Camp Instructions Print Language: Greek Discharge Orders/Prescriptions Prescriptions: New docusate sodium [Colace] 100 mg capsule 100 mg PO DAILY Qty: 14 0RF naproxen 500 mg tablet 500 mg PO BID PRN (Reason: pain (scale score 4-6)) Qty: 30 0RF oxycodone-acetaminophen [Percocet] 5-325 mg tablet 1 tab PO Q4H PRN (Reason: pain (scale score 7-10)) 7 Days Qty: 20 0RF Continued aspirin [Adult Low Dose Aspirin] 81 mg tablet,delayed release (DR/EC) 81 mg PO QDAY calcium carbonate-vitamin D3 600 mg calcium- 200 unit capsule 1 cap PO DAILY cholecalciferol (vitamin D3) 125 mcg (5,000 unit) capsule 125 mcg PO QDAY glucosamine-chondroitin 900 mg tablet 1,500 mg PO DAILY amlodipine 5 mg tablet 5 mg PO QHS atorvastatin 10 mg tablet 10 mg PO QHS metformin 500 mg tablet 500 mg PO DAILY lisinopril-hydrochlorothiazide 20-12.5 mg tablet 2 tab PO DAILY Held turmeric 400 mg capsule 400 mg PO DAILY Hold Instructions: Resume on 10/06/24. Discontinued megestrol 40 mg tablet 40 mg PO BID Qty: 60 5RF Other Ambulatory Orders: 12 Lead EKG (Routine) Timeframe: 20240923 Location: None Selected Ordered By: Dr. Allyson Hercules Referrals / Follow Up: Janey Camp MD [Primary Care Provider] - Disposition Disposition (needs filled in before D/C Order can be placed): Home, Self Care 09/29/24 0928Jennksenia Hercules DO CC: Dr. Janey Camp MD ~ [facility]05-27-2025 [facility] Medical Records Department [address] [place] [id number] History Physical Exam 09/29/24914 MR#: [id number] Acct: [id number] Name: FRANCHESKA CROSS Rep #: [id number] : 1955 69 From: Allyson Hercules DO PCP: Dr. Janey Camp MD Status:[facility] Location: [place] [address] History and Physical Date of Admission: 09/29/24 Intake Vital Signs 08/14/2512:54 09/23/2508:37 09/23/2508:38 Height 5 ft 6 in 5 ft 6 in 5 ft 6 in Weight: 196 lb 198 lb 4 oz BMI 31.6 32.0 BP 116/70 113/75 Intake Visit Reasons: TRH BSO cyst [employer] Required: No Is patient in pain?: No Allergies hydrocodone (From Vicodin) Allergy (Unknown, Verified 09/23/24 09:36) Unknown Medications ???Medication ???Instructions ???Recorded ???Confirmed ???Type aspirin 81 mg tablet,delayed 81 mg PO QDAY 05/15/17 09/23/24 History release (Adult Low Dose Aspirin) calcium 600 mg (as 1 cap PO DAILY 05/15/17 09/23/24 History carbonate)-vitamin D3 5 mcg (200 unit) capsule lisinopril 20 2 tab PO DAILY 09/28/23 09/23/24 History mg-hydrochlorothiazide 12.5 mg tablet amlodipine 5 mg tablet 5 mg PO QHS 01/22/24 09/23/24 History atorvastatin 10 mg tablet 10 mg PO QHS 01/22/24 09/23/24 History turmeric 400 mg capsule 400 mg PO DAILY 01/22/24 09/23/24 History antiarthritic combination no.2 900 1,500 mg PO DAILY 01/24/24 09/23/24 History mg tablet (glucosamine-chondroitin) cholecalciferol (vitamin D3) 125 125 mcg PO QDAY 01/24/24 09/23/24 History mcg (5,000 unit) capsule megestrol 40 mg tablet 40 mg PO BID #60 tabs 08/04/24 09/23/24 Rx metformin 500 mg tablet 500 mg PO DAILY 09/15/24 09/23/24 History Is last menstrual period known: No Post menopausal: Yes Patient : No : No PFSH Medical History Wears glasses Diabetes Ambulates with cane High cholesterol Non-smoker Incisional hernia of anterior abdominal wall without obstruction or gangrene Arthritis Heart murmur Surgical History H/O total knee replacement Status post hysteroscopic polypectomy History of incisional hernia repair Dislocation, shoulder closed S/P appendectomy S/P cholecystectomy Family History Mother HypertensionFather DiabetesSon Seizures Social History number of children: 6 Smoking Status: Never smoker second hand exposure: No alcohol intake: never substance use type: does not use caffeine: No what type of physical activity do you participate in: none frequency: does not exercise seatbelt use: always additional social history: Sanchez HPI TRH BSO cyst Details: FRANCHESKA CROSS is a 69 year old who presents for pre-op robotic hyst. She is a (all vaginal deliveries) who has on and off vaginal bleeding ( postmenopausal bleeding). She had a d and c in february that showed hyperplasia, she has been on megace since. she has had an increase in bleeding since the weekend. she has been feeling good no cramping. she has gone through two diapers a day two days over the weekend and now is only spotting. EMB was easily obtained in the office by Dr Beal and was benign. Ultrasound shows a cervical fibroid that is likely degrading. EXAM: US Pelvis Transvaginal CLINICAL INDICATION: AUB, POST D C TECHNIQUE: Real-time transvaginal pelvic ultrasound with image documentation. Transvaginal imaging was used for better evaluation of the endometrium and adnexa. COMPARISON: No relevant prior studies available. FINDINGS: UTERUS/CERVIX: Cervical fibroid measuring 4.6 x 4.0 x 3.8 cm. Normal endometrial stripe thickness. The uterus measures 7.7 x 5.3 x 3.7 cm. RIGHT OVARY: Right ovary not visualized. LEFT OVARY: Left ovary not visualized. FREE FLUID: No fluid. BLADDER: Empty bladder which cannot be evaluated with this probe. US/Transvaginal Non- IMPRESSION: Fibroid as above. History Past Pregnancies Del. Date Name GA/Weeks Outcome Route Bth Weight Infant Gen Labor Lgth Anesthesia Del Locatn Provider FOB Unknown Alex Unknown Kyle Unknown Hever Unknown Huang Unknown Syd Unknown Liliana ROS Const ROS Unobtainable: All systems reviewed are unremarkable except as noted in H Resp Resp: Reports system reviewed and no additional complaints, except as documented; Denies cough GI GI: Reports as per HPI Psych Psych: Reports system reviewed and no additional complaints, except as documented Exam Const General: cooperative, healthy appearing, comfortable and no acute distress Resp Effort Inspection: normal respiratory effort Ski (more content not included)...[facility]05-21-2025 Hospital Discharge instructionsAmbulatory Orders* 12 Lead EKG [[facility]] Time Frame: 09/23/24, Location: None Selected [facility] Work Phone: [phone]) 673-433203-28-2025 Radiology Diagnostic study note [facility] Imaging Services [address] [place] [address] Transvaginal Non- MR#: [id number] Acct: [id number] Name: FRANCHESKA CROSS Rep #: [id number] : 1955 F 68 From: Samanta yHman MD PCP: Dr. Janey Camp MD Status: REG CLI Study:Transvaginal Non- Date of Exam: 07/27/24 Exam# [id number] Ordering Dr: Selina Sam MD EXAM: US Pelvis Transvaginal CLINICAL INDICATION: AUB, POST D C TECHNIQUE: Real-time transvaginal pelvic ultrasound with image documentation. Transvaginal imaging was used for better evaluation of the endometrium and adnexa. COMPARISON: No relevant prior studies available. FINDINGS: UTERUS/CERVIX: Cervical fibroid measuring 4.6 x 4.0 x 3.8 cm. Normal endometrial stripe thickness. The uterus measures 7.7 x 5.3 x 3.7 cm. RIGHT OVARY: Right ovary not visualized. LEFT OVARY: Left ovary not visualized. FREE FLUID: No fluid. BLADDER: Empty bladder which cannot be evaluated with this probe. US/Transvaginal Non- IMPRESSION: Fibroid as above. Reading Location: [facility] CC: Dr. Janey Camp MD; Dr. Selina Beal MD ~ County Manager: Signed [facility]03-19-2025 NotePap Smear Specimen AdequacyMarch 2024 11:59pmComment.Satisfactory for evaluation. Endocervical and/or squamous metaplasticcells (endocervical component)are present.[facility] INTERFACED A#[id number] HealthComment on above:Satisfactory for evaluation. Endocervical and/or squamous metaplasticcells (endocervical component)are present.07-22-2024 NotePap Smear Specimen AdequacyMarch 2024 11:59pmComment.Satisfactory for evaluation. Endocervical and/or squamous metaplasticcells (endocervical component)are present.[facility] INTERFACED A#[id number] Community HospitalComment on above:Satisfactory for evaluation. Endocervical and/or squamous metaplasticcells (endocervical component)are present.07-22-2024 NotePap Smear Specimen AdequacyMarch 2024 11:59pmComment.Satisfactory for evaluation. Endocervical and/or squamous metaplasticcells (endocervical component)are present.[facility] INTER[facility]ACED A#[id number] Community HospitalComment on above:Satisfactory for evaluation. Endocervical and/or squamous metaplasticcells (endocervical component)are present.07-22-2024 Evaluation note* Diagnosis Onset Date Resolution Status Admit Date Postmenopausal bleeding acute M arch 2024 10:20am [facility] Work Phone: 1(230) 742-973303-19-2025 Evaluation note* Diagnosis Onset Date Resolution Status Admit Date Postmenopausal bleeding acute M arch 2024 10:20am Fibroid of cervix acute August 042024 2:03pm Postmenopausal bleeding acute A pril 2024 2:03pm Status post hysteroscopic polypectomy acute August 14, 2024 2:03pm HTN (hypertension) chronic August 14, 2024 2:03pm [facility] Work Phone: [phone]) 663-182403-19-2025 Evaluation note* Diagnosis Onset Date Resolution Status Admit Date Postmenopausal bleeding acute M arch 2024 10:20am Fibroid of cervix acute August 042024 2:03pm Postmenopausal bleeding acute A pril 2024 2:03pm Status post hysteroscopic polypectomy acute August 14, 2024 2:03pm HTN (hypertension) chronic August 14, 2024 2:03pm Fibroid of cervix acute September 9:28am Postmenopausal bleeding acute M ay 2024 9:28am Status post hysteroscopic polypectomy acute September 23, 2024 9 :28am HTN (hypertension) chronic September 232024 9:28am Fibroid of cervix acute September 1:10pm Postmenopausal bleeding acute M ay 2024 1:10pm Incisional hernia of anterio r abdominal wall without obstruction or gangrene chronic September 1:10pm [facility] Work Phone: 1([phone] 568-544703-19-2025 Evaluation note* Diagnosis Onset Date Resolution Status Admit Date Postmenopausal bleeding acute M arch 2024 10:20am Fibroid of cervix acute August 042024 2:03pm Postmenopausal bleeding acute A pril 2024 2:03pm Status post hysteroscopic polypectomy acute August 14, 2024 2:03pm HTN (hypertension) chronic August 14, 2024 2:03pm Fibroid of cervix acute September 9:28am Postmenopausal bleeding acute M ay 2024 9:28am Status post hysteroscopic polypectomy acute September 23, 2024 9 :28am HTN (hypertension) chronic September 232024 9:28am Fibroid of cervix acute September 1:10pm Postmenopausal bleeding acute M ay 2024 1:10pm Status post hysterectomy wit h oophorectomy acute September 29, 2024 1 :10pm Incisional hernia of anterio r abdominal wall without obstruction or gangrene chronic September 1:10pm [facility] Work Phone: [phone] 204-264103-19-2025 Evaluation note* Diagnosis Onset Date Resolution Status Admit Date Postmenopausal bleeding acute M arch 2024 10:20am Fibroid of cervix acute August 042024 2:03pm Postmenopausal bleeding acute A pril 2024 2:03pm Status post hysteroscopic polypectomy acute August 14, 2024 2:03pm HTN (hypertension) chronic August 14, 2024 2:03pm Fibroid of cervix acute September 9:28am Postmenopausal bleeding acute M ay 2024 9:28am Status post hysteroscopic polypectomy acute September 23, 2024 9 :28am HTN (hypertension) chronic September 232024 9:28am Fibroid of cervix acute September 8:10am Postmenopausal bleeding acute M ay 2024 8:10am Status post hysterectomy wit h oophorectomy acute September 29, 2024 8 :10am Incisional hernia of anterio r abdominal wall without obstruction or gangrene chronic September 8:10am [facility] Work Phone: 1([phone] 800-526103-19-2025 Evaluation note* Diagnosis Onset Date Resolution Status Admit Date Postmenopausal bleeding acute M arch 2024 10:20am Fibroid of cervix acute August 042024 2:03pm Postmenopausal bleeding acute A pril 2024 2:03pm Status post hysteroscopic polypectomy acute August 14, 2024 2:03pm HTN (hypertension) chronic August 14, 2024 2:03pm Fibroid of cervix acute September 9:28am Postmenopausal bleeding acute M ay 2024 9:28am Status post hysteroscopic polypectomy acute September 23, 2024 9 :28am HTN (hypertension) chronic September 232024 9:28am Fibroid of cervix acute September 8:10am Postmenopausal bleeding acute M ay 2024 8:10am Status post hysterectomy wit h oophorectomy acute September 29, 2024 8 :10am Incisional hernia of anterio r abdominal wall without obstruction or gangrene chronic September 8:10am Status post hysterectomy wit h oophorectomy acute October 13, 2024 10:35am [facility] Work Phone: [phone] [facility] Medical Records Department [address] [place] [id number] History Physical Exam 02/04/24 0735 MR#: [id number] Acct: [id number] Name: FRANCHESKA CROSS Rep #: [id number] : 1955 68 From: Selina Beal MD PCP: Dr. Janey Camp MD Status:[facility] Location: [place] [address] History and Physical Date of Admission: 02/04/24 Intake Vital Signs 12/11/2410:47 01/23/2413:13 01/23/2413:21 Height 5 ft 6 in 5 ft 6 in 5 ft 6 in Weight: 213 lb BMI 34.3 BP 149/79 H Blood Pressure Location Lt brachial Position Sitting Intake Visit Reasons: consult/preop D C with symphion [employer] Required: No Is patient in pain?: Yes (arthritis pain) Allergies hydrocodone (From Vicodin) Allergy (Unknown, Verified 01/24/24 13:13) Unknown Medications ???Medication ???Instructions ???Recorded ???Confirmed ???Type aspirin 81 mg tablet,delayed 81 mg PO QDAY 05/15/17 01/24/24 History release (Adult Low Dose Aspirin) calcium carbonate 600 mg-vitamin 1 cap PO ONCE 05/15/17 01/22/24 History D3 5 mcg (200 unit) capsule lisinopril 20 2 tab PO DAILY 09/28/23 01/24/24 History mg-hydrochlorothiazide 12.5 mg tablet metformin 500 mg tablet 500 mg PO BID #60 tabs 09/28/23 01/24/24 Rx amlodipine 5 mg tablet 5 mg PO QHS 01/22/24 01/24/24 History atorvastatin 10 mg tablet 10 mg PO QHS 01/22/24 01/24/24 History turmeric 400 mg capsule 400 mg PO DAILY 01/22/24 01/24/24 History antiarthritic combination no.2 900 mg PO 01/24/24 01/24/24 History mg tablet (glucosamine-chondroitin) cholecalciferol (vitamin D3) 125 125 mcg PO QDAY 01/24/24 01/24/24 History mcg (5,000 unit) capsule Is last menstrual period known: No Post menopausal: Yes Patient : No : No PFSH Medical History Wears glasses Diabetes Ambulates with cane High cholesterol Non-smoker Incisional hernia of anterior abdominal wall without obstruction or gangrene Arthritis Heart murmur Surgical History History of incisional hernia repair Dislocation, shoulder closed S/P appendectomy S/P cholecystectomy Family History Mother HypertensionFather DiabetesSon Seizures Social History (Updated 01/24/24 @ 13:18 by Yen Cho) number of children: 6 Smoking Status: Never smoker second hand exposure: No alcohol intake: never substance use type: does not use caffeine: No what type of physical activity do you participate in: none frequency: does not exercise seatbelt use: always additional social history: Sanchez HPI consult/preop D C with symphion Details: FRANCHESKA CROSS is a 68 year old who presents for endometrial hyperplasia, she had PMB over the summer, US showed 23 mm thickening. she had pap smears done in the past that were normal, unsure when the last one was. she denies any bleeidng now. no pelvic pain or pressure now. Female Reproductive History Menopausal Symptoms: No night sweats History Past Pregnancies Del. Date Name GA/Weeks Outcome Route Bth Weight Gen Labor Lgth Anesthesia Del Locatn Provider FOB Unknown Alex Unknown Kyle Unknown Hever Unknown Huang Unknown Syd Unknown Liliana ROS Const Constitutional: Denies fatigue, night sweats, weight gain or weight loss ENT ENT: Reports system reviewed and no additional complaints, except as documented Cardio Card: Denies chest pain Resp Resp: Denies cough or dyspnea GI GI: Reports as per HPI; Denies abdominal pain, constipation, nausea or vomiting : Reports urinary frequency, urinary incontinence and urinary urgency; Denies nipple discharge, urinary hesitancy, vaginal discharge, vaginal dryness, vaginal odor or vaginal pruritus Musc Musc: Reports arthralgias and back pain; Denies muscle weakness Skin Skin/Breast: Denies alopecia, change in hair, dry skin, breast mass, breast pain, breast skin changes or nipple discharge Neuro Neuro: Reports system reviewed and no additional complaints, except as documented Psych Psych: Reports system reviewed and no additional complaints, except as documented Endo Endo: Denies cold intolerance, excessive sweating, heat intolerance or polydipsia Joseph/Lymph Hematologic/Lymphatic: Denies easy bleeding, Denies easy bruising and Denies lymphadenopathy Exam Const General: cooperative, healthy appearing, comfortable and no acute distress Orientation: alert HENOR Head: normal to inspection and normocephalic Ears: hearing grossly normal bilaterally and external ears normal Nose: external nose normal and nares normal Face and sinus: normal facial exam Neck Neck: normal visual inspection and no lymph (more content not included)... [facility] HospitalConsult note Author Eve Willard [facility] Note Date/Time September 30, 2024 10:27 am [facility] Medical Records Department [address] [place] [address] Counseling Note - Pharmacy 09/30/24 1025 MR#: [id number] Acct: [id number] Name: FRANCHESKA CROSS Rep #:[id number] : 1955 69 From: Eve Willard PCP: Dr. Janey Camp MD Status:DIS MIRANDA Y Location: [place] [address] Pharmacy [facility] has performed discharge medication reconciliation and counseling for this patient. 1. DOCUSATE 100MG PO DAILY X 14 DAYS 2. NAPROXEN 500MG PO BID PRN PAIN 3. PERCOCET 5/325MG PO Q4H PRN PAIN 4. STOP MEGACE 5. HOLD TURMERIC UNTIL 10/06/24 The patient's discharge medication list was reviewed for discrepancies and discrepancies were resolved. The patient was counseled on the following discharge medications and changes in medications for homegoing were reviewed. The Reason for Use, instructions for use, and potential side effects were reviewed for all new medications. The patient's questions regarding all of their medications were answered. The patient was able to verbally demonstrate an understanding of their dischargemedications. Medications at Discharge Home Medications aspirin 81 mg tablet,delayed release (Adult Low Dose Aspirin) 81 mg PO QDAY 05/15/17 calcium 600 mg (as carbonate)-vitamin D3 5 mcg (200 unit) capsule 1 cap PO DAILY05/15/17 lisinopril 20 mg-hydrochlorothiazide 12.5 mg tablet 2 tab PO DAILY 09/28/23 amlodipine 5 mg tablet 5 mg PO QHS 01/22/24 atorvastatin 10 mg tablet 10 mg PO QHS 01/22/24 turmeric 400 mg capsule 400 mg PO DAILY 01/22/24 Held on 09/29/24. Instructions: Resume on 10/06/24. antiarthritic combination no.2 900 mg tablet (glucosamine-chondroitin) 1,500 mg PO DAILY 01/24/24 cholecalciferol (vitamin D3) 125 mcg (5,000 unit) capsule 125 mcg PO QDAY 01/24/24 metformin 500 mg tablet 500 mg PO DAILY 09/15/24 docusate sodium 100 mg capsule (Colace) 100 mg PO DAILY #14 caps 09/29/24 naproxen 500 mg tablet 500 mg PO BID PRN pain (scale score 4-6) #30 tabs 09/29/24 oxycodone-acetaminophen 5 mg-325 mg tablet (Percocet) 1 tab PO Q4H PRN pain (scale score 7-10) 7 days #20 tabs 09/29/24 09/30/24 1027 <Electronically signed by Eve Willard> Date _ Eve Willard Cosigner Signature (if applicable): Date CC: ~ Signed [facility] Work Phone: Evaluation noteNo assessment information available [facility] Work Phone: Progress note Author Yen Felder [facility] Note Date/Time October 13, 2024 10:5 0am [facility] [address] [place] [address], [address] [place] [address] OFFICE VISIT Date of Service: 10/13/24 MR#: [id number] Acct: [id number] Name: FRANCHESKA CROSS Rep #: [id number] : 1955 Provider: NAMRATA Felder Age/Sex: 69/F Location: [facility] Status: Signed Intake Vital Signs 08/14/24 13:54 09/29/24 15:49 10/13/24 10:36 10/13/24 10:44 Height 5 ft 6 in 5 ft 6 in 5 ft 6 in 5 ft 6 in Weight: 198 lb 2 oz BMI 31.9 BP 127/80 H Intake Visit Reasons: 2 wk TRH BSO Cysto Chief Complaint: 2 Week TRH BSO cysto [employer] Required: No Is patient in pain?: No Allergies hydrocodone (From Vicodin) Allergy (Unknown, Verified 10/13/24 10:36) Unknown Medications ?Medication ?Instructions ?Recorded ?Confirmed ?Type aspirin 81 mg tablet,delayed 81 mg PO QDAY 05/15/17 History release (Adult Low Dose Aspirin) calcium 600 mg (as 1 cap PO DAILY 05/15/1710/04 History carbonate)-vitamin D3 5 mcg (200 unit) capsule lisinopril 20 2 tab PO DAILY 09/28/2310/04 History mg-hydrochlorothiazide 12.5 mg tablet amlodipine 5 mg tablet 5 mg PO QHS 01/22/24 5 History atorvastatin 10 mg tablet 10 mg PO QHS 01/22/24 History turmeric 400 mg capsule 400 mg PO DAILY 01/22/2402/27 History Held on 09/29/24. Instructions: Resume on 10/06/24. antiarthritic combination no.2 900 1,500 mg PO DAILY 0 01/24/24 10/13/24 History mg tablet (glucosamine-chondroitin) cholecalciferol (vitamin D3) 125 125 mcg PO QDAY 01/2310/13/24 History mcg (5,000 unit) capsule metformin 500 mg tablet 500 mg PO DAILY 09/15/2402/27 History docusate sodium 100 mg capsule 100 mg PO DAILY #14 cap s 09/29/24 10/13/24 Rx (Colace) Is last menstrual period known: No Post menopausal: Yes Patient : No : No PFSH Medical History Wears glasses Diabetes Ambulates with cane High cholesterol Non-smoker Incisional hernia of anterior abdominal wall without obstruction or gangrene Arthritis Heart murmur Surgical History History of right salpingo-oophorectomy History of lysis of adhesions History of robot-assisted laparoscopic hysterectomy H/O total knee replacement Status post hysteroscopic polypectomy History of incisional hernia repair Dislocation, shoulder closed S/P appendectomy S/P cholecystectomy Family History Mother Hypertension Father Diabetes Son Seizures Social History number of children: 6 Smoking Status: Never smoker second hand exposure: No alcohol intake: never substance use type: does not use caffeine: No what type of physical activity do you participate in: none frequency: does not exercise seatbelt use: always additional social history: Sanchez HPI 2 wk TRH BSO Cysto Details: FRANCHESKA CROSS is a 69 year old who presents for 2 wk postop TRH, BSO, cysto Dr Abdullahi. States can't believe how good I feel. Denies pain, bleeding, issues with bowel or bladder habits. Does have some fatigue, just rests each day. History Past Pregnancies Del. Date Name GA/Weeks Outcome Route Bth Weight Gen Labor Lgth Anesthesia Del Locatn Provider FOB Unknown Alex Unknown Kyle Unknown Hever Unknown Huang Unknown Syd Unknown Liliana Exam Const General: cooperative and no acute distress Orientation: oriented x3 GI Inspection: incision (well healed, nonerythematous) Palpation: soft and nontender Coding Level of Care Code No Charge Diagnoses Status post hysterectomy with oophorectomy Z90.710; Z90.721 Assessment and Plan Assessment and Plan (1) Status post hysterectomy with oophorectomy: Status: Acute Comment: Robotic hyst, lysis of adhesions, cysto, and RSO. being admitted hospital day for adhesions. Plan Routine postop care RTO 4 weeks Reviewed negative pathology 10/13/24 1050 <Electronically signed by Yen moeller POSTMASTER POSTMASTER-C> Date _ Yen Felder NP POSTMASTER-C Cosigner Signature: Date (if applicable) CC: ~ [facility] Work Phone: Reason for referral (narrative)No reason for referral information availableWSumma Health Work Phone: Family History No Family History Records Found Relationship Condition Age at Onset Recorded Date/T fidel mother Hypertension Unknown father Diabetes mellitus Unknown son Seizure Unknown Advance Directives No Advanced Directives Records Found Advance Directive Response Recorded Date/ Time Living Will Yes May 23 10:07am Power of Fashion Designer Yes May 23, 2017 10:07am Advance Directive Response Recorded Date/ Time Living Will Yes January 22, 2024 2:35pm Do you have a Healthcare Power of Fashion Designer? Yes January 22, 2024 2:35pm Advance Directive Response Recorded Date/ Time Do you have a Healthcare Power of Fashion Designer? Yes September 29, 2024 3:49pm Chief Complaint and Reason for Visit Chief Complaint EORDER Chief Complaint Admit Date RT KNEE OA *AS1 PROTOCOL* March 31, 2024 8:19am PREOP May 12, 2024 9: 49am PREOP May 12, 2024 9: 57am Follow up D&C, bleeding again July 10:20am AUB, POST D&C July 27, 2024 12: 49pm Reason for Visit Admit Date Postmenopausal bleeding July 22, 2024 10:20am Chief Complaint Admit Date PREOP May 12, 2024 9: 49am PREOP May 12, 2024 9: 57am Follow up D&C, bleeding again July 10:20am AUB, POST D&C July 27, 2024 12: 49pm Chief Complaint Admit Date Follow up D&C, bleeding again July 10:20am AUB, POST D&C July 27, 2024 12: 49pm 6 MTH F/U August 14, 2024 2:0 3pm PLACEMENT OF CERVICAL FIBROID PREOP September 23, 2024 7:47am TRH BSO cyst September 23, 2024 9:28a m Reason for Visit Admit Date Postmenopausal bleeding July 22, 2024 10:20am Fibroid of cervix August 14, 2024 2:0 3pm Postmenopausal bleeding August 14, 2024 2:03pm Status post hysteroscopic polypectomy Ap ril 2024 2:03pm HTN (hypertension) August 14, 2024 2:0 3pm Chief Complaint Admit Date Follow up D&C, bleeding again July 10:20am AUB, POST D&C July 27, 2024 12: 49pm 6 MTH F/U August 14, 2024 2:0 3pm PLACEMENT OF CERVICAL FIBROID PREOP September 23, 2024 7:47am TRH BSO cyst September 23, 2024 9:28a m Lap Total Robotic Hysterectomy BSO, Cyst oscopy September 29, 2024 9:15am Lap Total Robotic Hysterectomy BSO, Cyst oscopy September 29, 2024 1:10pm Reason for Visit Admit Date Postmenopausal bleeding July 22, 2024 10:20am Fibroid of cervix August 14, 2024 2:0 3pm Postmenopausal bleeding August 14, 2024 2:03pm Status post hysteroscopic polypectomy Ap ril 2024 2:03pm HTN (hypertension) August 14, 2024 2:0 3pm Fibroid of cervix September 23, 2024 9:28a m Postmenopausal bleeding September 23, 2024 9 :28am Status post hysteroscopic polypectomy Ma y 2024 9:28am HTN (hypertension) September 23, 2024 9:28a m Fibroid of cervix September 29, 2024 1:10p m Postmenopausal bleeding September 29, 2024 1 :10pm Incisional hernia of anterio r abdominal wall without obstruction or gangrene September 29, 2024 1:10pm Chief Complaint Admit Date Follow up D&C, bleeding again July 10:20am AUB, POST D&C July 27, 2024 12: 49pm 6 MTH F/U August 14, 2024 2:0 3pm PLACEMENT OF CERVICAL FIBROID PREOP September 23, 2024 7:47am TRH BSO cyst September 23, 2024 9:28a m Lap Total Robotic Hysterectomy BSO, Cyst oscopy September 29, 2024 9:15am Lap Total Robotic Hysterectomy BSO, Cyst oscopy September 29, 2024 1:10pm Lap Total Robotic Hysterectomy BSO, Cyst oscopy September 30, 2024 8:15am Reason for Visit Admit Date Postmenopausal bleeding July 22, 2024 10:20am Fibroid of cervix August 14, 2024 2:0 3pm Postmenopausal bleeding August 14, 2024 2:03pm Status post hysteroscopic polypectomy Ap ril 2024 2:03pm HTN (hypertension) August 14, 2024 2:0 3pm Fibroid of cervix September 23, 2024 9:28a m Postmenopausal bleeding September 23, 2024 9 :28am Status post hysteroscopic polypectomy Ma y 2024 9:28am HTN (hypertension) September 23, 2024 9:28a m Fibroid of cervix September 29, 2024 1:10p m Postmenopausal bleeding September 29, 2024 1 :10pm Status post hysterectomy with oophorecto my September 29, 2024 1:10pm Incisional hernia of anterio r abdominal wall without obstruction or gangrene September 29, 2024 1:10pm Chief Complaint Admit Date Follow up D&C, bleeding again July 10:20am AUB, POST D&C July 27, 2024 12: 49pm 6 MTH F/U August 14, 2024 2:0 3pm PLACEMENT OF CERVICAL FIBROID PREOP September 23, 2024 7:47am TRH BSO cyst September 23, 2024 9:28a m Lap Total Robotic Hysterectomy BSO, Cyst oscopy September 29, 2024 8:10am Lap Total Robotic Hysterectomy BSO, Cyst oscopy September 29, 2024 9:15am Lap Total Robotic Hysterectomy BSO, Cyst oscopy September 30, 2024 8:15am Reason for Visit Admit Date Postmenopausal bleeding July 22, 2024 10:20am Fibroid of cervix August 14, 2024 2:0 3pm Postmenopausal bleeding August 14, 2024 2:03pm Status post hysteroscopic polypectomy Ap ril 2024 2:03pm HTN (hypertension) August 14, 2024 2:0 3pm Fibroid of cervix September 23, 2024 9:28a m Postmenopausal bleeding September 23, 2024 9 :28am Status post hysteroscopic polypectomy Ma 2024 9:28am HTN (hypertension) September 23, 2024 9:28a m Fibroid of cervix September 29, 2024 8:10a m Postmenopausal bleeding September 29, 2024 8 :10am Status post hysterectomy with oophorecto my September 29, 2024 8:10am Incisional hernia of anterio r abdominal wall without obstruction or gangrene September 29, 2024 8:10am Chief Complaint Admit Date Follow up D&C, bleeding again July 10:20am AUB, POST D&C July 27, 2024 12: 49pm 6 MTH F/U August 14, 2024 2:0 3pm PLACEMENT OF CERVICAL FIBROID PREOP September 23, 2024 7:47am TRH BSO cyst September 23, 2024 9:28a m PREOP September 23, 2024 10:58 am Lap Total Robotic Hysterectomy BSO, Cyst oscopy September 29, 2024 8:10am Lap Total Robotic Hysterectomy BSO, Cyst oscopy September 29, 2024 9:15am Lap Total Robotic Hysterectomy BSO, Cyst oscopy September 30, 2024 8:15am 2 wk TRH BSO Cysto October 13, 2024 10:3 5am Reason for Visit Admit Date Postmenopausal bleeding July 22, 2024 10:20am Fibroid of cervix August 14, 2024 2:0 3pm Postmenopausal bleeding August 14, 2024 2:03pm Status post hysteroscopic polypectomy Ap ril 2024 2:03pm HTN (hypertension) August 14, 2024 2:0 3pm Fibroid of cervix September 23, 2024 9:28a m Postmenopausal bleeding September 23, 2024 9 :28am Status post hysteroscopic polypectomy Ma y 2024 9:28am HTN (hypertension) September 23, 2024 9:28a m Fibroid of cervix September 29, 2024 8:10a m Postmenopausal bleeding September 29, 2024 8 :10am Status post hysterectomy with oophorecto my September 29, 2024 8:10am Incisional hernia of anterio r abdominal wall without obstruction or gangrene September 29, 2024 8:10am Status post hysterectomy with oophorecto my October 13, 2024 10:35am Chief Complaint Admit Date Follow up D&C, bleeding again July 10:20am AUB, POST D&C July 27, 2024 12: 49pm 6 MTH F/U August 14, 2024 2:0 3pm PLACEMENT OF CERVICAL FIBROID PREOP September 23, 2024 7:47am TRH BSO cyst September 23, 2024 9:28a m PREOP September 23, 2024 10:58 am Lap Total Robotic Hysterectomy BSO, Cyst oscopy September 29, 2024 8:10am Lap Total Robotic Hysterectomy BSO, Cyst oscopy September 29, 2024 9:15am Lap Total Robotic Hysterectomy BSO, Cyst oscopy September 30, 2024 8:15am 2 wk TRH BSO Cysto October 13, 2024 10:3 5am 6 wk TRH BSO Cysto November 09, 2024 10:15 am Summary Purpose Additional Source Comments Goals (unrecognized section and content) Goals may be documented in a n alternate sectionGoals may be documented in an alternate sectionGoals may be documented in an alternate sectionGoals may be documented in an alternate sectionGoals may be documented in an alternate sectionGoals may be documented in an alternate section Care Teams (unrecognized sec tion and content) Team Status: Active Member Role Status Dates Dr. Janey Camp MD Family Provider Active Dr. Janey Camp MD Primary Care Provider Active Team Status: Inactive Member Role Status Dates Dr. Janey Camp MD Primary Care Prov ider, Attending Provider, Referring Provider Active Team Status: Active Member Role Status Dates Dr. Janey Camp MD Primary Care Provider Active Team Status: Inactive Member Role Status Dates Dr. Janey Camp MD Primary Care Provider Active Start: March 31, 2024 End: March 31, 2024 Dr. Emerson Miranda MD Attending Provider Active Start: March 31, 2024 End: March 31, 2024 Dr. Emerson Miranda MD Referring Provider Active Start: March 31, 2024 End: March 31, 2024 Team Status: Inactive Member Role Status Dates Dr. Janey Camp MD Primary Care Provider Active Start: April 21, 2024 End: April 21, 2024 Dr. Emerson Miranda MD Attending Provider Active Start: April 21, 2024 End: April 21, 2024 Dr. Emerson Miranda MD Referring Provider Active Start: April 21, 2024 End: April 21, 2024 Team Status: Inactive Member Role Status Dates Dr. Janey Camp MD Primary Care Provider Active Start: May 12, 2024 End: May 12, 2024 Dr. Emerson Miranda MD Attending Provider Active Start: May 12, 2024 End: May 12, 2024 Dr. Emerson Miranda MD Referring Provider Active Start: May 12, 2024 End: May 12, 2024 Team Status: Active Member Role Status Dates Dr. Janey Camp MD Primary Care Provider Active Start: May 12, 2024 End: May 12, 2024 Dr. Marcelo Vizcaino MD Attending Provider Active Start: May 12, 2024 End: May 12, 2024 Dr. Emerson Miranda MD Referring Provider Active Start: May 12, 2024 End: May 12, 2024 Team Status: Inactive Member Role Status Dates Dr. Janey Camp MD Primary Care Provider Active Start: May 18, 2024 End: May 18, 2024 Dr. Emerson Miranda MD Attending Provider Active Start: May 18, 2024 End: May 18, 2024 Dr. Emerson Miranda MD Referring Provider Active Start: May 18, 2024 End: May 18, 2024 Team Status: Inactive Member Role Status Dates Dr. Janey Camp MD Primary Care Provider Active Start: July 22, 2024 End: July 22, 2024 Dr. Janey Camp MD Referring Provider Active Start: July 22, 2024 End: July 22, 2024 Dr. Selina Beal MD Attending Provider Active Start: July 22, 2024 End: July 22, 2024 Team Status: Inactive Member Role Status Dates Dr. Janey Camp MD Primary Care Provider Active Start: July 22, 2024 End: July 22, 2024 Dr. Selina Beal MD Attending Provider Active Start: July 22, 2024 End: July 22, 2024 Dr. Selina Beal MD Referring Provider Active Start: July 22, 2024 End: July 22, 2024 Team Status: Active Member Role Status Dates Dr. Janey Camp MD Primary Care Provider Active Start: July 27, 2024 Dr. Selina Beal MD Attending Provider Active Start: July 27, 2024 Dr. Selina Beal MD Referring Provider Active Start: July 27, 2024 Team Status: Inactive Member Role Status Dates Dr. Janey Camp MD Primary Care Provider Active Start: July 27, 2024 End: July 27, 2024 Dr. Selina Beal MD Attending Provider Active Start: July 27, 2024 End: July 27, 2024 Dr. Selina Beal MD Referring Provider Active Start: July 27, 2024 End: July 27, 2024 Team Status: Inactive Member Role Status Dates Dr. Janey Camp MD Primary Care Provider Active Start: August 05, 2024 End: August 05, 2024 Dr. Selina Beal MD Attending Provider Active Start: August 05, 2024 End: August 05, 2024 Dr. Selina Beal MD Referring Provider Active Start: August 05, 2024 End: August 05, 2024 Team Status: Inactive Member Role Status Dates Dr. Janey Camp MD Primary Care Provider Active Start: August 14, 2024 End: August 14, 2024 Dr. Janey Camp MD Referring Provider Active Start: August 14, 2024 End: August 14, 2024 Dr. Allyson Hercules , DO Attending Provider Activ e Start: August 14, 2024 End: August 14, 2024 Team Status: Active Member Role Status Dates Dr. Janey Camp MD Primary Care Provider Active Start: September 23, 2024 Dr. Allyson Hercules , DO Attending Provider Activ e Start: September 23, 2024 Dr. Allyson Hercules DO Referring Provider Activ e Start: September 23, 2024 Team Status: Inactive Member Role Status Dates Dr. Janey Camp MD Primary Care Provider Active Start: September 23, 2024 End: September 23, 2024 Dr. Janey Camp MD Referring Provider Active Start: September 23, 2024 End: September 23, 2024 Dr. Allyson Hercules , DO Attending Provider Activ e Start: September 23, 2024 End: September 23, 2024 Team Status: Inactive Member Role Status Dates Dr. Janey Camp MD Primary Care Provider Active Start: September 23, 2024 End: September 23, 2024 Dr. Allyson Hercules , DO Attending Provider Activ e Start: September 23, 2024 End: September 23, 2024 Dr. Allyson Hercules , DO Referring Provider Activ e Start: September 23, 2024 End: September 23, 2024 Team Status: Active Member Role Status Dates Dr. Janey Camp MD Primary Care Provider Active Start: September 29, 2024 Dr. Allyson Hercules , DO Attending Provider Activ e Start: September 29, 2024 Dr. Allyson Hercules DO Referring Provider Activ e Start: September 29, 2024 Dr. Allyson Hercules , DO Other Provider Active Start: September 29, 2024 Team Status: Active Member Role Status Dates Dr. Janey Camp MD Primary Care Provider Active Start: September 29, 2024 Dr. Allyson Hercules , DO Admit Provider Active Start: September 29, 2024 Dr. Allyson Hercules , DO Attending Provider Activ e Start: September 29, 2024 Dr. Allyson Hercules DO Referring Provider Activ e Start: September 29, 2024 Team Status: Inactive Member Role Status Dates Dr. Janey Camp MD Primary Care Provider Active Start: September 29, 2024 End: September 30, 2024 Dr. Allyson Hercules , DO Admit Provider Active Start: September 29, 2024 End: September 30, 2024 Dr. Allyson Hercules , DO Attending Provider Activ e Start: September 29, 2024 End: September 30, 2024 Dr. Allyson Hercules DO Referring Provider Activ e Start: September 29, 2024 End: September 30, 2024 Team Status: Active Member Role Status Dates Dr. Janey Camp MD Primary Care Provider Active Start: September 30, 2024 Dr. Allyson Hercules , Admit Provider Active Start: September 30, 2024 Dr. Allyson Hercules DO Attending Provider Activ e Start: September 30, 2024 Dr. Allyson Hercules DO Referring Provider Activ e Start: September 30, 2024 Dr. Allyson Hercules DO Other Provider Active Start: September 30, 2024 Team Status: Inactive Member Role Status Dates Dr. Janey Camp MD Primary Care Provider Active Start: September 29, 2024 End: September 30, 2024 Dr. Allyson Hercules , DO Attending Provider Activ e Start: September 29, 2024 End: September 30, 2024 Dr. Allyson Hercules DO Referring Provider Activ e Start: September 29, 2024 End: September 30, 2024 Team Status: Active Member Role Status Dates Dr. Janey Camp MD Primary Care Provider Active Start: September 23, 2024 End: September 23, 2024 Dr. Maurice Mac MD Attending Provider Active S tart: September 23, 2024 End: September 23, 2024 Dr. Allyson Hercules , Referring Provider Activ e Start: September 23, 2024 End: September 23, 2024 Team Status: Inactive Member Role Status Dates Dr. Janey Camp MD Primary Care Provider Active Start: October 13, 2024 End: October 13, 2024 Dr. Janey Camp MD Referring Provider Active Start: October 13, 2024 End: October 13, 2024 Yen Felder [employer], [employer] Attending Provider Active Start: October 13, 2024 End: October 13, 2024 Team Status: Active Member Role/Relationship Status Dates Dr. Janey Camp MD Primary Care Provider Active Team Status: Inactive Member Role/Relationship Status Dates Dr. Janey Camp MD Primary Care Provider Active Start: July 22, 2024 End: July 22, 2024 Dr. Janey Camp MD Referring Provider Active Start: July 22, 2024 End: July 22, 2024 Dr. Selina Beal MD Attending Provider Active Start: July 22, 2024 End: July 22, 2024 Team Status: Inactive Member Role/Relationship Status Dates Dr. Janey Camp MD Primary Care Provider Active Start: July 22, 2024 End: July 22, 2024 Dr. Selina Beal MD Attending Provider Active Start: July 22, 2024 End: July 22, 2024 Dr. Selina Beal MD Referring Provider Active Start: July 22, 2024 End: July 22, 2024 Team Status: Inactive Member Role/Relationship Status Dates Dr. Janey Camp MD Primary Care Provider Active Start: July 27, 2024 End: July 27, 2024 Dr. Selina Beal MD Attending Provider Active Start: July 27, 2024 End: July 27, 2024 Dr. Selina Beal MD Referring Provider Active Start: July 27, 2024 End: July 27, 2024 Team Status: Inactive Member Role/Relationship Status Dates Dr. Janey Camp MD Primary Care Provider Active Start: August 05, 2024 End: August 05, 2024 Dr. Selina Beal MD Attending Provider Active Start: August 05, 2024 End: August 05, 2024 Dr. Selina Beal MD Referring Provider Active Start: August 05, 2024 End: August 05, 2024 Team Status: Inactive Member Role/Relationship Status Dates Dr. Janey Camp MD Primary Care Provider Active Start: August 14, 2024 End: August 14, 2024 Dr. Janey Camp MD Referring Provider Active Start: August 14, 2024 End: August 14, 2024 Dr. Allyson Hercules DO Attending Provider Activ e Start: August 14, 2024 End: August 14, 2024 Team Status: Inactive Member Role/Relationship Status Dates Dr. Janey Camp MD Primary Care Provider Active Start: September 23, 2024 End: September 23, 2024 Dr. Allyson Hercules DO Attending Provider Activ e Start: September 23, 2024 End: September 23, 2024 Dr. Allyson Hercules DO Referring Provider Activ e Start: September 23, 2024 End: September 23, 2024 Team Status: Inactive Member Role/Relationship Status Dates Dr. Janey Camp MD Primary Care Provider Active Start: September 23, 2024 End: September 23, 2024 Dr. Janey Camp MD Referring Provider Active Start: September 23, 2024 End: September 23, 2024 Dr. Allyson Hercules DO Attending Provider Activ e Start: September 23, 2024 End: September 23, 2024 Team Status: Active Member Role/Relationship Status Dates Dr. Janey Camp MD Primary Care Provider Active Start: September 23, 2024 End: September 23, 2024 Dr. Maurice Mac MD Attending Provider Active S tart: September 23, 2024 End: September 23, 2024 Dr. Allyson Hercules DO Referring Provider Activ e Start: September 23, 2024 End: September 23, 2024 Team Status: Inactive Member Role/Relationship Status Dates Dr. Janey Camp MD Primary Care Provider Active Start: September 29, 2024 End: September 30, 2024 Dr. Allyson Hercules DO Attending Provider Activ e Start: September 29, 2024 End: September 30, 2024 Dr. Allyson Hercules DO Referring Provider Activ e Start: September 29, 2024 End: September 30, 2024 Team Status: Active Member Role/Relationship Status Dates Dr. Janey Camp MD Primary Care Provider Active Start: September 29, 2024 Dr. Allyson Hercules DO Attending Provider Activ e Start: September 29, 2024 Dr. Allyson Hercules DO Referring Provider Activ e Start: September 29, 2024 Dr. Allyson Hercules DO Other Provider Active Start: September 29, 2024 Team Status: Active Member Role/Relationship Status Dates Dr. Janey Camp MD Primary Care Provider Active Start: September 30, 2024 Dr. Allyson Hercules DO Admit Provider Active Start: September 30, 2024 Dr. Allyson Hercules DO Attending Provider Activ e Start: September 30, 2024 Dr. Allyson Hercules DO Referring Provider Activ e Start: September 30, 2024 Dr. Allyson Hercules DO Other Provider Active Start: September 30, 2024 Team Status: Inactive Member Role/Relationship Status Dates Dr. Janey Camp MD Primary Care Provider Active Start: October 13, 2024 End: October 13, 2024 Dr. Janey Camp MD Referring Provider Active Start: October 13, 2024 End: October 13, 2024 Yen Felder NP, [employer]-C Attending Provider Active Start: October 13, 2024 End: October 13, 2024 Team Status: Inactive Member Role/Relationship Status Dates Dr. Janey Camp MD Primary Care Provider Active Start: November 09, 2024 End: November 09, 2024 Dr. Janey aCmp MD Referring Provider Active Start: November 09, 2024 End: November 09, 2024 Dr. Allyson Hercules DO Attending Provider Activ e Start: November 09, 2024 End: November 09, 2024 INFORMATION SOURCE (unrecogn ized section and content) DATE CREATED AUTHOR 11/22/2024 [facility] FOR RECORDS PERTAINING TO PATIENTS WHO ARE OR HAVE BEEN ENROLLED IN A CHEMICAL DEPENDENCY/SUBSTANCEABUSE PROGRAM, SOME INFORMATION MAY BE OMITTED. This clinical summary was aggregated from multiple sources. Caution should be exercised in using it in the provision of clinical care. This summary normalizes information from multiple sources, and as a consequence, information in this document may materially change the coding, format and clinical context of patient data. In addition, data may be omitted in some cases. CLINICAL DECISIONS SHOULD BE BASED ON THE PRIMARY CLINICAL RECORDS. [facility]. provides no warranty or guarantee of the accuracy or completeness of information in this document.
== END | disposition home or self-care (01) ==
LOC: OPBI 10:13
PROVIDERS: PCP Family Medicine; Referring Provider Obstetrics & Gynecology; Visit Provider Obstetrics & Gynecology
DX: Z12.31 Encounter for screening mammogram for malignant neoplasm of breast (principal)
CPT/HCPCS: 77063; 77067

== ENCOUNTER → 2025-03-17 | Outpatient (CLI) | payer MEDICARE, OTHER, SELFPAY ==
--- NOTE | 2025-03-17 13:30 | CT_ITS ---
PROCEDURE: EXTREMITY LOWER WITHOUT CONTRA 03/17/2025 REASON FOR EXAM: L KNEE AS1 PROTOCOL/OA TECHNIQUE: Procedure Code: CTELWO Modality: CT Procedure: EXTREMITY LOWER WITHOUT CONTRA Coronal and Sagittal reconstruction series were provided. CONTRAST: None One or more dose reduction techniques were used (e.g., Automated exposure control, adjustment of the mA and/or kV according to patient size, use of iterative reconstruction technique). RADIATION DOSE SUMMARY: CTDlvol: 18.5 mGy DLP: 1448.92 mGycm COMPARISON: Prior study dated number 10/24/2023. FINDINGS: Imaging of the left hip, left knee and left ankle were obtained. Left hip: Mild degree of joint space narrowing in keeping with osteoarthritis. No bony abnormality is seen. Imaging of the left knee was obtained. There is a moderate degree of joint space narrowing with a degenerative spur formation along the medial compartment of the knee joint. Degenerative changes are also seen at the level of the patellofemoral joint. There is a marked degree of narrowing with the spur formation. Imaging of the left ankle was obtained. The ankle mortise is intact. 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 Reading Location: [id number]
--- OUTSIDE RECORDS SUMMARY | 2025-03-17 18:30 | XMS RPT_ITS | CCD ---
Author Organization [facility] Team Providers Care Histology Tech Name Role Phone Conrado GARCIA, Dr. Janey Moeller Primary Care Provider Ruben GARCIA, Dr. Norman Attending Provider [phone] Ruben GARCIA, Dr. Norman Referring Provider [phone] Carrillo GARCIA, Dr. Robertson Attending Provider Dr. Janey Camp MD Referring Provider [phone] Selina Beal MD Attending Provider [phone] Dr. Selina Beal MD Referring Provider Dr. Janey Camp MD Primary Care Provider Dr. Allyson Hercules DO Attending Provider Dr. Allyson Hercules DO Referring Provider Dr. Allyson Hercules DO Other Provider [phone] Dr. Allyson Hercules DO Admit Provider [phone] Dr. Allyson Hercules DO Admit Provider [phone] Dr. Maurice Mac MD Attending Provider Yen Hare Attending Provider [phone] Dr. Janey Camp MD Primary Care Provider Dr. Selina Beal MD Attending Provider Dr. Selina Beal MD Referring Provider Dr. Janey Camp MD Referring Provider Selina Beal Referring Unavailable Selina Beal Attending Unavailable Jolliff, Janey S Primary Care Unavailable Jolliff, Janey S Referring Unavailable DuonySelina Attending Unavailable Jolliff, Janey S Primary Care Unavailable Marcelo Vizcaino Attending Unavailable Miranda, Emerson Referring Unavailable Jolliff, Janey S Primary Care Unavailable Emerson Miranda Attending Unavailable Miranda, Emerson Referring Unavailable Jolliff, Janey S Primary Care Unavailable Jolliff, Janey S Referring Unavailable Jolliff, Janey S Attending Unavailable Jolliff, Janey S Primary Care Unavailable Selina Beal Referring Unavailable Duony, Selina Attending Unavailable Jolliff, Janey S Primary Care Unavailable Vande Velde, Allyson Referring Unavailabl e Jolliff, Janey S Primary Care Unavailable Eliot Deleon, Allyson Attending Unavailabl e Vande VeldeAllyson Admitting Unavailabl e Vande Velde, Allyson Referring Unavailabl e Vande Velde, Allyson Attending Unavailabl e Jolliff, Janey S Primary Care Unavailable Selina Beal Referring Unavailable Selina Beal Attending Unavailable Jolliff, Janey S Primary Care Unavailable Emerson Miranda Attending Unavailable Miranda, Emerson Referring Unavailable Jolliff, Janey S Primary Care Unavailable Ruben, Emerson Referring Unavailable MirandaEmerson Attending Unavailable Jolliff, Janey S Primary Care Unavailable Allyson Hercules Referring Unavailabl e Vande Velde, Allyson Attending Unavailabl e Jolliff, Janey S Primary Care Unavailable Allyson Hercules Attending Unavailabl e Vande Allyson Deleon Consulting Unavailabl e Vande VeldeAllyson Admitting Unavailabl e Vande VeldeAllyson Referring Unavailabl e Jolliff, Janey S Primary Care Unavailable Jolliff, Janey S Referring Unavailable Emerita THREADING MACHINE FEEDER AUTOMATICYen Attending Unavailable Jolliff, Janey S Primary Care Unavailable Vande Velde, Allyson Attending Unavailabl e Jolliff, Janey S Referring Unavailable Jolliff, Janey S Primary Care Unavailable Jolliff, Janey S Referring Unavailable Vande Velde, Allyson Attending Unavailabl e Jolliff, Janey S Primary Care Unavailable Jolliff, Janey S Referring Unavailable Jolliff, Janey S Primary Care Unavailable Vande Velde, Allyson Attending Unavailabl e Vande VeldeAllyson Referring Maurice Montgomery Attending Unavailable Conrado Janey S Primary Care Unavailable Allyson Hercules Consulting Allyson Dawn Referring UnavailJaney Casas S Primary Care Unavailable Allyson Hercules Attending Emerson Retana Attending Unavailable Emerson Miranda Referring Unavailable Conrado Janey S Primary Care Unavailable Emerson Miranda Attending Unavailable Emerson Miranda Referring Unavailable Conrado Janey S Primary Care Unavailable Allergies Allergy Classification Reported Allergen(s) Allergy Type Date of Onset Reaction(s) Facility (12 sources) HYDROcodone Drug Allergy 06-07-2017 Unknown [facility] (1 source) HYDROcodone Drug Allergy 11-09-2024 [facility] Repository Medications Current Medications Medication Drug Class(es) Dates Sig (Normalized) Sig (Original) amLODIPine 5 mg oral tablet (10 sources) Dihydropyridine Calcium Channel Chaparrita Start: 01-22-2024 take 1 tablet by mouth at bedtime Amlodipine 5 mg tablet Active 5 mg PO AT BEDTIME January 22, 2024 12:00am Antiarthritic Combination No.2 (Glucosamine-Chondro itin) 900 mg tablet (10 sources) Start: 01-24-2024 take 1 tablet by mouth once daily Antiarthritic Combination No.2 (Glucosamine-Chond roitin) 900 mg tablet Active 1500 mg PO DAILY January 24, 2024 12:00am aspirin 81 mg delayed release oral tablet (12 sources) Platelet Aggregation Inhibitor, Nonsteroidal Anti-inflammatory Drug Start: 05-15-2017 Aspirin (Adult Low Dose Aspirin) 81 mg tablet,delayed release (DR/EC) Active 81 mg PO daily May 15, 2017 1:00am atorvastatin 10 mg oral tablet (10 sources) HMG-CoA Reductase Inhibitor Start: 01-22-2024 take [...] D3 600 mg calcium- 200 unit capsule (6 sources) Start: 05-15-2017 Calcium Carbon ate-Vitamin D3 600 mg calcium- 200 unit capsule Active 1 NMA PO DAILY 0 May 15, 2017 1:00am Start: 05-15-2017 Calcium Carbon ate-Vitamin D3 600 mg calcium- 200 unit capsule Active 1 NMA PO DAILY May 15, 2017 1:00am cholecalciferol 0.125 mg oral capsule (10 sources) Vitamin D Start: 01-24-2024 take 1 capsule by mouth once daily Cholecalciferol (Vitamin D3) 125 mcg (5,000 unit) capsule Active 125 ug PO daily January 24, 2024 12:00am docusate sodium 100 mg oral capsule (6 sources) Start: 09-29-2024 take 1 capsule by mouth once daily Docusate Sodium (Colace) 100 mg capsule Active 100 mg PO DAILY 14 September 29, 2024 12:00am hydroCHLOROthiazide 12.5 mg / lisinopril 20 mg oral tablet (10 sources) Thiazide Diuretic, Angiotensin Converting Enzyme Inhibitor Start: 09-28-2023 Lisinopril-Hydrochl orothiazide 20-12.5 mg tablet Active 2 {tbl} PO DAILY September 28, 2023 12:00am metFORMIN hydrochloride 500 mg oral tablet (17 sources) Biguanide Start: 09-15-2024 take 1 tablet by mouth once daily Metformin 500 mg tablet Active 500 mg PO DAILY September 15, 2024 12:00am Start: 09-28-2023 End: 09-15-2024 take 1 tablet by mouth twice daily Metformin 500 mg tablet Discontinued 500 mg PO TWICE A DAY 60 0 September 28, 2023 12:00am September 15, 2024 2:08pm Turmeric extract (10 sources) Start: 01-22-2024 take 1 capsule by mo ut once daily Turmeric 400 mg capsule Active 400 mg PO DAILY January 22, 2024 12:00am On Hold: Resume on 10/06/24. Start: 01-22-2024 take 1 capsule by mo ut once daily Turmeric 400 mg capsule Active 400 mg PO DAILY January 22, 2024 12:00am Completed/Discontinued Medications Medication Drug Class(es) Dates Sig (Normalized) Sig (Original) acetaminophen 325 mg / oxyCODONE hydrochloride 5 mg oral tablet (18 sources) Opioid Agonist Start: 09-29-2024 End: 10-13-2024 [...] HOURS NEEDED as needed for Pain 30 3 May 24, 2017 2:02pm September 28, 2023 7:21pm Postoperative pain Other acute postprocedural pain Start: 05-24-2017 take 1 tablet by ruby th every four hours as needed Oxycodone-Acetaminophen Active 1 - 2 TABLET PO EVERY 4 HOURS NEEDED 30 3 May 24, 2017 2:02pm megestrol acetate 40 mg oral tablet (18 sources) Progestin Start: 08-04-2024 End: 09-29-2024 take 1 tablet by mouth twice daily Megestrol 40 mg tablet Discontinued 40 mg PO TWICE A DAY 60 5 August 04, 2024 3:31pm September 29, 2024 9:25am Start: 02-19-2024 End: 08-04-2024 take 1 tablet by mouth once daily Megestrol 40 mg tablet Discontinued 40 mg PO DAILY 30 5 February 19, 2024 12:00am August 04, 2024 3:32pm naproxen 500 mg oral tablet (6 sources) Nonsteroidal Anti-inflammatory Drug Start: 09-29-2024 End: 10-13-2024 take 1 tablet by mouth twice daily as needed for pain Naproxen 500 mg tablet Discontinued 500 mg PO TWICE A DAY as needed for pain (scale score 4-6) 30 0 September 29, 2024 12:00am October 13, 2024 10:43am Problems Active Problems Problem Classification Problem Date Documented Date Episodic/Chronic Diabetes mellitus without complication (10 sources) Hyperglycemia; Translations: [Hyperglycemia, unspecified] 10-06-2023 Episodic Essential hypertension (20 sources) Essential hypertension; Translations: [Essential (primary) hypertension] 10-06-2023 Chronic Heart valve disorders (12 sources) Heart murmur; Translations: [Cardiac murmur, unspecified] 05-27-2017 Episodic Joint disorders and dislocations; trauma-related (12 sources) Dislocation of shoulder joint; Translations: [Unspecified [...] with irregular cycle] Onset: 08-08-2024 Chronic Osteoarthritis (14 sources) Arthritis; Translations: [Unspecified osteoarthritis, unspecified site] [...] diagnostic imaging of other specified body structures] 02-19-2024 Chronic Comment on above: 23 mm Past or Other Problems Problem Classification Problem Date Documented Date Episodic/Chronic Abdominal hernia (19 sources) Ventral incisional hernia; Translations: [Incisional hernia without obstruction or gangrene] Onset: 10-16-2024 05-27-2017 Episodic Comment on above: At the umbilicus Benign neoplasm of uterus (20 sources) Cervical fibroid; Translations: [Leiomyoma of uterus, unspecified] Onset: 10-16-2024 08-10-2024 Episodic Comment on above: on US, ordered MRI. Other screening for suspected conditions (not mental disorders or infectious disease) (4 sources) Patient encounter status; Translations: [Encounter for other screening for malignant neoplasm of breast] Onset: 11-09-2024 11-09-2024 Episodic Residual codes; unclassified (20 sources) Other specified postprocedural states; Translations: [Status post hysteroscopic polypectomy] Onset: 07-22-2024 02-11-2024 Episodic Comment on above: simple hyperplasia w ithout atypia Residual codes; unclassified (2 sources) Acquired absence of both cervix and uterus; Translations: [Acquired absence of both cervix and uterus] Onset: 10-13-2024 Episodic Residual codes; unclassified (2 sources) Acquired absence of ovaries, unilateral; Translations: [Acquired absence of ovaries, unilateral] Onset: 10-13-2024 Episodic Results Test Name Value Interpretation Reference Range Facility Breast imaging reportOrdered By: Betty Fernandes on 11-27-2024 Study report [facility] Imaging Services [address] [place], [place] [address] SCRN MAMM (CAD)W/YOSEPH BILAT MR#: [id number] Acct: [id number] Name: FRANCHESKA CROSS Rep #: [id number] : 1955 F 69 From: Jessa Fernandes MD PCP: Dr. Janey Camp MD [facility] Study:SCRN MAMM (CAD)W/YOSEPH BILAT Date of Exa m: 11/27/24 Exam# [id number] Ordering Dr: Allyson Bains DO EXAM: SCRN MAMM (CAD)W/YOSEPH BILAT DATE: 11/27/2024 CLINICAL HISTORY: F, Age 69 y/o , BREAST CANCER SCREENING TECHNIQUE: SCRN MAMM (CAD)W/YOSEPH BILAT COMPARISON: Prior exam(s) dated 11/16/2010, 10/21/2008. FINDINGS: TISSUE DENSITY: There are scattered areas of fibroglandular density. Bilateral Breast Mammographic Findings: No significant masses, calcifications or other abnormalities are identified. BI/SCRN MAMM (CAD)W/YOSEPH BILAT IMPRESSION: There is no mammographic evidence of malignancy. OVERALL FINAL ASSESSMENT BI-RADS 1: NEGATIVE. RECOMMENDATION: Routine annual follow-up in 1 Year A letter with findings and recommendations will be mailed to the patient. Reading Location: [id number] CC: Dr. Janey Camp MD; Dr. Allyson Hercules DO ~ Skidder Loader: Signed [facility] SCRN MAMM (CAD)W/YOSEPH BILATo n 11-27-2024 SCRN MAMM (CAD)W/YOSEPH BILAT [facility] Imaging Services [address] [place] [address] SCRN MAMM (CAD)W/YOSEPH BILAT MR#: [id number] Acct: [id number] Name: FRANCHESKA CROSS Rep #: [id number] : 1955 F 69 From: Betty Fernandes MD PCP: Dr. Janey Camp MD Status: [facility] Study: SCRN MAMM (CAD)W/YOSEPH BILAT Date of Exam: 11/04 09/27 Exam# [id number] Ordering Dr: Allyson Hercules DO EXAM: SCRN MAMM (CAD)W/YOSEPH BILAT DATE: 11/27/2024 CLINICAL HISTORY: F, Age 69 y/o , BREAST CANCER SCREENING TECHNIQUE: SCRN MAMM (CAD)W/YOSEPH BILAT COMPARISON: Prior exam(s) dated 11/16/2010, 10/21/2008. FINDINGS: TISSUE DENSITY: There are scattered areas of fibroglandular density. Bilateral Breast Mammographic Findings: No significant masses, calcifications or other abnormalities are identified. BI/SCRN MAMM (CAD)W/YOSEPH BILAT IMPRESSION: There is no mammographic evidence of malignancy. OVERALL FINAL ASSESSMENT BI-RADS 1: NEGATIVE. RECOMMENDATION: Routine annual follow-up in 1 Year A letter with findings and recommendations will be mailed to the patient. Reading Location: [id number] CC: Dr. Janey Camp MD; Dr. Allyson Hercules DO Skidder Loader: Signed Normal [facility] Consumer Marketing Analyst Office Visit Reporton 11-09-2024 Consumer Marketing Analyst Office Visit Report [facility] [address], [address] [place] [address] OFFICE VISIT Date of Service: 11/09/24 MR#: [id number] Acct: [id number] Name: FRANCHESKA CROSS Rep #: [id number] : 1955 Provider: Dr. 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 Orders: Orders SCRN MAMM (CAD)W/YOSEPH [place]X Today Z12.39 - Encounter for other screening for malignant neoplasm of breast Plan plan to start estrogen cream. mammogram ordered rto in one year. 11/09/24 1044 Date Allyson Hercules DO Cosigner Signature: Date (more content not included)... Normal [facility] Consumer Marketing Analyst Office Visit Reporton 10-13-2024 Consumer Marketing Analyst Office Visit Report [facility] [address], [address] [place] [address] OFFICE VISIT Date of Service: 10/13/24 MR#: [id number] Acct: [id number] Name: FRANCHESKA CROSS Rep #: [id number] : 1955 Provider: NAMRATA ca Age/Sex: 69/F Location: [facility] Status: Signed Intake Vital Signs 08/14/24 13:54 09/29/24 15:49 10/13/24 10:36 10/13/24 10:44 Height 5 ft 6 in 5 ft 6 in 5 ft 6 in 5 ft 6 in Weight: 198 lb 2 oz BMI 31.9 BP 127/80 H Intake Visit Reasons: 2 wk TRH BSO Cysto Chief Complaint: 2 Week TRH BSO cysto Anatomy Professor Required: No Is patient in pain?: No [...] menopausal: Yes Patient : No : No [facility] Medical History Wears glasses Diabetes Ambulates with [...] negative pathology 10/13/24 1050 Date Yen Felder NP THREADING MACHINE FEEDER AUTOMATIC-C Cosigner Signature: Date (if applicable) CC: Normal [facility] Anion gap in Serum or Plasma Ordered By: Allyson Deleon on 09-30-2024 Anion gap [Moles/Vol] 11 mmol/L 5-15 [facility] Automated blood erythrocyte countOrdered By: Allyson Deleon on 09-30-2024 RBC (Bld) [#/Vol] 3.53 10*6/uL Low 4.2-5.4 [facility] Comment on above: Performed By: #### L 501.080 #### [facility] [place], [address] Automated blood hematocrit ( percentage)Ordered By: Allyson Deleon on 09-30-2024 Hematocrit (Bld) [Volume fraction] 31.9 % Low 37-47 [facility] Comment on above: Performed By: #### L 501.080 #### [facility] [address] [place], [address] BUN/creatinine ratioOrdered By: Allyson Deleon on 09-30-2024 Urea nitrogen/Creatinine [Mass ratio] 23.3 mg/mg High 10-20 [facility] Bedside Glucoseon 09-30-2024 FINGERSTICK GLU 147 mg/dL High 74-106 [facility] Comment on above: Result Comment: SANDRA GEMENT OF PATIENT CARE PER NURSING PROTOCOL Performed By: #### L 100.0100 #### [facility] [address] [place], [address] FINGERSTICK GLU 184 mg/dL High 74-106 [facility] Comment on above: Result Comment: SANDRA GEMENT OF PATIENT CARE PER NURSING PROTOCOL Performed By: #### L 501.080 #### [facility] [address] [place], [address] Bilirubin, totalOrdered By: Allyson Deleon on 09-30-2024 Bilirubin [Mass/Vol] 0.50 mg/dL Normal 0.00-1.30 [facility] Comment on above: Performed By: #### L 500.4050 #### [facility] [address] [place], [address] CBC-Complete Blood Cnt No Di ffon 09-30-2024 RDW SD 46.2 fl High 35.1-43.9 [facility] Comment on above: Performed By: #### L 501.080 #### [facility] [address] [place], [address] Carbon dioxide, total [Moles /volume] in Central venous bloodOrdered By: Allyson Deleon on 09-30-2024 CO2 [Moles/Vol] 21.4 mmol/L Normal 21.0-32.0 [facility] Comment on above: Performed By: #### L 500.4050 #### [facility] [address] [place], [address] Chloride assayOrdered By: Maged Deleon on 09-30-2024 Chloride [Moles/Vol] 106 mmol/L Normal 98-108 [facility] Comment on above: Performed By: #### L 500.4050 #### [facility] [address] [place], [address] Comprehensive Metabolic Prof ilon 09-30-2024 ALK PHOS 38 U/L Normal 35-104 [facility] Comment on above: Performed By: #### L 500.4050 #### [facility] [address] [place], [address] BUN/CRE 23.3 RATIO High 10-20 [facility] Comment on above: Performed By: #### L 500.4050 #### [facility] [address] [place], [address] ECRCL 57.55 ml/min Normal 50-250 [facility] Comment on above: Performed By: #### L 500.4050 #### [facility] [address] [place], [address] GAP 11 Normal 5-15 [facility] Comment on above: Performed By: #### L 500.4050 #### [facility] [address] [place], [address] Potassium [Moles/Vol] 4.1 mmol/L Normal 3.3-5.1 [facility] Comment on above: Performed By: #### L 500.4050 #### [facility] [address] [place], [address] T PROT 5.7 g/dL Low 5.9-8.4 [facility] Comment on above: Performed By: #### L 500.4050 #### [facility] [address] [place], [address] Comprehensive Metabolic Prof ilOrdered By: Allyson Deleon on 09-30-2024 AST [Catalytic activity/Vol] 38 U/L High <=31 [facility] Comment on above: Performed By: #### L 500.4050 #### [facility] [address] [place], [place], [address] Erythrocyte distribution wid th ratioOrdered By: Allyson Deleon on 09-30-2024 Erythrocyte distribution width (RBC) [Ratio] 14.0 % Normal 11.6-14.6 [facility] Comment on above: Performed By: #### L 501.080 #### [facility] [address] [place], [place], [address] Erythrocyte distribution wid th standard deviationOrdered By: Allyson Deleon on 09-30-2024 Erythrocyte distribution width (RBC) [Ratio] 46.2 fl High 35.1-43.9 [facility] Glomerular filtration rate ( GFR) estimation/1.73 sq m using serum, plasma, or whole bOrdered By: Allyson Deleon on 09-30-2024 GFR/1.73 sq M.predicted among non-blacks MDRD (S/P/Bld) [Vol rate/Area] 59 mL/min/{1.73_m2} Low >60 [facility] Comment on above: mL/min/1.73m2 CKD-EP I Creatinine Equation (2020) Result Comment: mL/m in/1.73m2 CKD-EPI Creatinine Equation (2020) Performed By: #### L 500.4050 #### [facility] [address] [place], [place], [address] Glucose measurement at bedsi deOrdered By: Allyson Deleon on 09-30-2024 Glucose [Mass/Vol] 147 mg/dL High 74-106 [facility] Comment on above: MANAGEMENT OF PATIEN T CARE PER NURSING PROTOCOL Hemoglobin measurementOrdere d By: Allyson Deleon on 09-30-2024 Hemoglobin (Bld) [Mass/Vol] 10.5 g/dL Low 12.0-15.0 [facility] Comment on above: Performed By: #### L 501.080 #### [facility] [address] [place], [address] MCV (mean corpuscular volume ) determinationOrdered By: Allyson Deleon on 09-30-2024 MCV (RBC) [Entitic vol] 90.4 fL Normal 81-99 [facility] Comment on above: Performed By: #### L 501.080 #### [facility] [address] [place], [address] Mean corpuscular hemoglobin (MCH) determinationOrdered By: Allyson Deleon on 09-30-2024 MCH (RBC) [Entitic mass] 29.7 pg Normal 27.0-32.0 [facility] Comment on above: Performed By: #### L 501.080 #### [facility] [address] [place], [address] Mean corpuscular hemoglobin concentration (MCHC) determinationOrdered By: Allyson Deleon on 09-30-2024 MCHC (RBC) [Mass/Vol] 32.9 g/dL Normal 32-36 [facility] Comment on above: Performed By: #### L 501.080 #### [facility] [address] [facility] [place], [address] Mean platelet volume determi nationOrdered By: Allyson Deleon on 09-30-2024 Platelet mean volume (Bld) [Entitic vol] 9.9 fL Normal 6.2-12.0 [facility] Comment on above: Performed By: #### L 501.080 #### [facility] [address] [place], [address] Platelet countOrdered By: Maged Deleon on 09-30-2024 Platelets (Bld) [#/Vol] 271 10*3/uL Normal 150-450 [facility] Comment on above: Performed By: #### L 501.080 #### [facility] [address] [place], [address] Potassium measurement (mass/ volume)Ordered By: Allyson Deleon on 09-30-2024 Potassium (Unsp spec) [Mass/Vol] 4.1 mmol/L 3.3-5.1 [facility] Serum creatinine measurement (mass/volume)Ordered By: Allyson Deleon on 09-30-2024 Creatinine [Mass/Vol] 1.02 mg/dL Normal 0.70-1.20 [facility] Comment on above: Performed By: #### L 500.4050 #### [facility] [address] [place], [address] Serum globulin measurementOr dered By: Allyson Deleon on 09-30-2024 Globulin (S) [Mass/Vol] 2.1 g/dL Low 2.2-4.2 [facility] Comment on above: Performed By: #### L 500.4050 #### [facility] [address] [place], [address] Serum glucose measurement (m ass/volume)Ordered By: Allyson Deleon on 09-30-2024 Glucose [Mass/Vol] 149 mg/dL High 70-99 [facility] Comment on above: Performed By: #### L 500.4050 #### [facility] [address] [place], [address] Serum or plasma alanine canchola otransferase (ALT) measurementOrdered By: Allyson Deleon on 09-30-2024 ALT [Catalytic activity/Vol] 34 U/L Normal <=34 [facility] Comment on above: Performed By: #### L 500.4050 #### [facility] [address] [place], [address] Serum or plasma albumin martin urement (mass/volume)Ordered By: Allyson Deleon on 09-30-2024 Albumin [Mass/Vol] 3.6 g/dL Normal 3.4-4.8 [facility] Comment on above: Performed By: #### L 500.4050 #### [facility] [address] [place], [address] Serum or plasma albumin/glob ulin mass ratioOrdered By: Allyson Deleon on 09-30-2024 Albumin/Globulin [Mass ratio] 1.8 {ratio} Normal 0.9-2.4 [facility] Comment on above: Performed By: #### L 500.4050 #### [facility] [address] [place], [address] Serum or plasma alkaline rosalio sphatase measurementOrdered By: Allyson Deleon on 09-30-2024 ALP [Catalytic activity/Vol] 38 U/L 35-104 [facility] Serum or plasma calcium martin urement (mass/volume)Ordered By: Allyson Deleon on 09-30-2024 Calcium [Mass/Vol] 8.7 mg/dL Normal 7.6-11.0 [facility] Comment on above: Performed By: #### L 500.4050 #### [facility] [address] [place], [address] Serum or plasma urea nitroge n measurement (mass/volume)Ordered By: Allyson Deleon on 09-30-2024 Urea nitrogen [Mass/Vol] 24 mg/dL High 4-19 [facility] Comment on above: Performed By: #### L 500.4050 #### [facility] [address] [place], [address] Sodium levelOrdered By: Meme Deleon on 09-30-2024 Sodium [Moles/Vol] 138 mmol/L Normal 133-145 [facility] Comment on above: Performed By: #### L 500.4050 #### [facility] [address] [place], [address] Total proteinOrdered By: Alessia Deleon on 09-30-2024 Protein [Mass/Vol] 5.7 g/dL Low 5.9-8.4 [facility] White blood cell (WBC) count Ordered By: Allyson Deleon on 09-30-2024 WBC (Bld) [#/Vol] 16.9 10*3/uL High 4.4-11.0 [facility] Comment on above: Performed By: #### L 501.080 #### [facility] [address] [place], [address] Bedside Glucoseon 09-29-2024 FINGERSTICK GLU 218 mg/dL High 74-106 [facility] Comment on above: Result Comment: SANDRA GEMENT OF PATIENT CARE PER NURSING PROTOCOL Performed By: #### L 501.080 #### [facility] [address] [place], [address] FINGERSTICK GLU 195 mg/dL High 74-106 [facility] Comment on above: Result Comment: SANDRA GEMENT OF PATIENT CARE PER NURSING PROTOCOL Performed By: #### L 501.080 #### [facility] [address] [place], [address] FINGERSTICK GLU 107 mg/dL High 74-106 [facility] Comment on above: Result Comment: SANDRA GEMENT OF PATIENT CARE PER NURSING PROTOCOL Performed By: #### L 501.080 #### [facility] [address] [place], [address] FINGERSTICK GLU 86 mg/dL Normal 74-106 [facility] Comment on above: Result Comment: SANDRA GEMENT OF PATIENT CARE PER NURSING PROTOCOL Performed By: #### L 501.080 #### [facility] [address] [place], [address] Discharge Instructionon 09-04 Discharge Instruction [facility] Medical Records Department [address] [place] [address] Instructions for Home/Discharge Instructions 09/29/24 0925 MR#: [id number] Acct: [id number] Name: FRANCHESKA CROSS Rep #: [id number] : 1955 69 From: Allyson Hercules DO [...] Care Provider: Janey Camp Instructions Print Language: Norwegian Discharge Orders/Prescriptions Prescriptions: New docusate sodium [Colace] [...] Order can be placed): Home, Self Care 09/29/24927 Allyson Hercules DO CC: Dr. Janey Camp MD Signed Normal [facility] deOrdered By: Allyson Deleon on 09-29-2024 Glucose [Mass/Vol] 218 mg/dL [facility] 74-106 [facility] Comment on above: MANAGEMENT OF PATIEN T CARE PER NURSING PROTOCOL MR/POSTOP.ANEon 09-29-2024 MR[facility]POSTOP.[facility] Medical Records Department [address] [place] [address] Anesthesia Postop Eval I 09/29/24 1337 MR#: [id number] Acct: [id number] Name: FRANCHESKA CROSS Rep #: [id number] : 1955 69 From: Marcelo Vick CRNA PCP: Dr. Janey Camp MD Status:REG [facility] Y Race: C Location: [place] [address] Anesthesia: Postop Eval I Current Vital Signs [...] completed: Yes 09/29/24 1338 Date Marcelo Vick CRNA Cosigner Signature: Date CC: Signed Normal [facility] MR/[id number] 09-29-2024 MR/POSTOPAN2 [facility] Medical Records Department [address] [place] [address] Anesthesia Postop Eval II 09/29/24 1339 MR#: [id number] Acct: [id number] Name: FRANCHESKA CROSS Rep #: [id number] : 1955 69 From: Marcelo Vick CRNA PCP: Dr. Janey Camp MD Status:REG SDC Y Race: C Location: [place] [address] Anesthesia Postop Eval I Sum Postop Eval Completion status Anesthesia document: Postop Eval 1 completed: Yes Anesthesia Postop Eval I Summary Anesthesia Postop Eval I Summary: Anesthesia Postop Eval I: Assessment Summary Airway patent Yes 09/29/24 13:38 [facility] Spontaneous unlabored Yes 09/29/24 13:38 [facility] respirations Mental status Awake,Calm 09/29/24 13:38 [facility] nausea No 09/29/24 13:38 [facility] Vomiting No 09/29/24 13:38 [facility] Anesthesia Postop Eval I: Fluid Summary Crystalloid volume administer 1,300 09/29/24 13:38 [facility] (ml) Colloids volume administered ( ml) Blood Product volume administered (ml) Total IV fluid infused 1,300 09/29/24 13:38 [facility] Anesthesia Postop Eval I: Summary Notes Anesthesia Complication No 09/29/24 13:38 [facility] Anesthesia Complication Comment: Post-operative progress note patient tolerated 09/29/24 13:38 [facility] well Anesthesia: Postop Eval II Evaluation Mental status: Awake and Calm Pain Level: 2 nausea: No Vomiting: No Complications Anesthesia Complication: No 09/29/24 1339 Date Marcelo Vick [employer] Cosigner Signature: Date CC: Signed Normal [facility] Magnetic resonance imaging r eportOrdered By: Jose Angel Ortiz on 09-29-2024 Study report [facility] Imaging Services [address] [place], [place] [address] Pelvis W/WO Contrast MR#: [id number] Acct: [id number] Name: FRANCHESKA CROSS Rep #: [id number] : 1955 F 69 From: Samanta Ortiz MD PCP: Dr. Janey Camp MD Status: REG CLI Study:Pelvis W/WO Contrast Date of Exam: 09/23/24 Exam# [id number] Ordering Dr: Allyson Bains DO PROCEDURE: PELVIS W/WO CONTRAST, 09/23/2024 REASON FOR EXAM: PLACEMENT OF CERVICAL FIBROID PREOP TECHNIQUE: Multisequence multiplanar MR of the pelvis was performed with and without IV contrast. IV contrast: 18 mL Clariscan COMPARISON: 07/27/2024 FINDINGS: Variable overall mild motion limitation. Some sequences are mild/moderately motion degraded. Note diffusion and coronal small [id number] T2 sequences were not performed. Visualized bowel: [...] 3. Additional description as above. Reading Location: [id number] CC: Dr. Janey Camp MD; Dr. Alylson Hercules DO ~ Skidder Loader: Signed [facility] Operative Reporton Operative Report [facility] Medical Records Department [address] [place] [address] Operative Report 09/29/24 1319 MR#: [id number] Acct: [id number] Name: FRANCHESKA CROSS Rep #: [id number] : 1955 69 From: Allyson Hercules DO PCP: Dr. Janey Camp MD Status:[facility] Location: [place] [address] Problems Associated Problem List Diagnoses (1) Fibroid of cervix: (2) Postmenopausal bleeding: (3) Incisional hernia of anterior abdominal wall without obstruction or gangrene: Multi Select Codes Urinary/Genital Urinary/Genital CPT Codes: 42973 Cystoscopy, 02117 TLH+BS/O <250gr uterus and Other Procedure See Report (lysis of adhesions ) Operative Report (Standard) Operative Information Date of Procedure: 09/29/24 Pre-Operative Diagnosis: postmenopausal bleeding, cervical fibroid Post-Operative Diagnosis: postmenopausal bleeding, cervical fibroid, pelvic and abdominal adhesions Surgery/Procedure Performed: total robotic hysterectomy, right salpingo-oophorectomy, lysis of adhesions, cystoscopy district plant engineer: Yes Vp Site: [place] Tasks completed by airline pilot/first officer: Closing, Insert Trochanter, Trocar and Retracting Additional talent acquisition assistant?: No Type of Anesthesia: General RN [...] Next a left upper quadrant 8 mm talent acquisition assistant port site was placed to be [...] created, tammy (more content not included)... Normal [facility] Surgery Specimen Level Von 0 09-29-2024 Surgery Specimen Level V ------- ---- Patient Age/Sex Location Account Attending Physician ---- HIGHFRANCHESKA SERGE 69/ [facility] [id number] Dr. Allyson Hercules, Alina ---- Specimen: [id number] Received: 09/29/24 Status: MARISA [place] Num: [id number] Spec Type: UTERUS Subm Dr: Dr. Allyson Hercules, DO [facility] OPERATION: ERAS, laparoscopic total robotic hysterectomy PRE-OP [...] Patient Age/Sex Location Account Attending Physician ---- [facility],FRANCHESKA VALENTINE 69/F [facility] [id number] Alina Simon ---- polyp which is confined [...] No firm or papillary areas are identified. Civil Cad Tech sections:A1. Anterior cervix with anterior serosal shaveA2. Posterior cervix with posterior serosal shave (including posterior subserosal nodule)A3. Anterior endomyometrium with nodules (superficial x 2)A4. Posterior endomyometrium with nodules (superficial x 2)A5. Possible polyp of posterior endometrium with protruding nodule at paracervical marginA6-7. Separate nodule and soft tissueA8 (more content not included)... Normal [facility] Comment on above: Performed By: #### L 501.080 #### [facility] [address] [place], [address] 12 Lead EKGon 09-23-2024 12 Lead EKG [facility] Cardiovascular Services [address] [place] [address] 12 Lead EKG 09/23/24 1058 MR#: [id number] Acct: [id number] Name: FRANCHESKA CROSS Rep #: [id number] : 1955 69 From: Maurice Mac MD Attending Dr: Dr. Allyson Hercules DO Statu s: PRE SDC Ordering Dr: Allyson Hercules DO Date: 5 Location: [facility] Sex: F C Admitted: Test Reason : [...] Nonspecific ST abnormality Abnormal ECG Confirmed by CHRISTIAN GARCIA, MAURICE ([id number]), associate editor HANNA GARZA ([id number]) on 09/23/2024 1:01:18 PM Referred By: Allyson Hercules Confirmed By: MAURICE MAC MD 09/23/24 1301 Date Maurice Mac MD CC: Dr. Janey Camp MD; Dr. Allyson Hercules DO Signed Normal [facility] Absolute lymphocyte countOrd ered By: Allyson Deleon on 09-23-2024 Lymphocytes Auto (Unsp spec) [#/Vol] 3.69 10*3/uL 0.83-4.51 [facility] Absolute neutrophil countOrd ered By: Allyson Deleon on 09-23-2024 Neutrophils (Bld) [#/Vol] 5.9 10*3/uL 2.0-7.7 [facility] Anion gap in Serum or Plasma Ordered By: Allyson Deleon on 09-23-2024 Anion gap [Moles/Vol] 12 mmol/L 09-17 [facility] Automated lymphocyte count a s percentage of total leukocytesOrdered By: Allyson Deleon on 09-23-2024 Lymphocytes/100 WBC Auto (Unsp spec) 34.6 % [facility] BUN/creatinine ratioOrdered By: Allyson Deleon on 09-23-2024 Urea nitrogen/Creatinine [Mass ratio] 22.1 mg/mg High - [facility] Basophil percentageOrdered B y: Allyson Deleon on 09-23-2024 Basophils/100 WBC (Bld) 0.6 % 0-1 [facility] Bilirubin, totalOrdered By: Allyson Deleon on 09-23-2024 Bilirubin [Mass/Vol] 0.53 mg/dL 0.00-1.30 [facility] CBC W/Diff, Automatedon 09-04 Absolute Lymph 3.69 X10 3/uL Normal 0.83-4.51 [facility] Comment on above: Performed By: #### L 100.0100 #### [facility] [address] [place], [address] Absolute Neut 5.9 X10 3/uL Normal 2.0-7.7 [facility] Comment on above: Performed By: #### L 100.0100 #### [facility] [address] [place], [address] Basophils/100 WBC (Bld) 0.6 % Normal 0-1 [facility] Comment on above: Performed By: #### L 100.0100 #### [facility] [address] [place], [address] Eosinophils/100 WBC (Bld) 3.1 % Normal 0-5 [facility] Comment on above: Performed By: #### L 100.0100 #### [facility] [address] [place], [address] Erythrocyte distribution width (RBC) [Ratio] 14.2 % Normal 11.6-14.6 [facility] Comment on above: Performed By: #### L 100.0100 #### [facility] [address] [place], [address] Hematocrit (Bld) [Volume fraction] 40.0 % Normal 37-47 [facility] Comment on above: Performed By: #### L 100.0100 #### [facility] [address] [place], [address] Hemoglobin (Bld) [Mass/Vol] 13.0 g/dL Normal 12.0-15.0 [facility] Comment on above: Performed By: #### L 100.0100 #### [facility] [address] [place], [address] IG% 0.400 Normal 0.0-0.9 [facility] Comment on above: Result Comment: IG% - Immature Granulocytes (promyelocytes, myelocytes and metamyelocytes) > 1% indicates that a LEFT SHIFT is Present. Performed By: #### L 100.0100 #### [facility] [address] [place], [address] Lymphocytes/100 WBC (Bld) 34.6 % Normal 19-41 [facility] Comment on above: Performed By: #### L 100.0100 #### [facility] [address] [place], [address] MCH (RBC) [Entitic mass] 29.7 pg Normal 27.0-32.0 [facility] Comment on above: Performed By: #### L 100.0100 #### [facility] [address] [place], [address] MCHC (RBC) [Mass/Vol] 32.5 g/dL Normal 32-36 [facility] Comment on above: Performed By: #### L 100.0100 #### [facility] [address] [place], [address] MCV (RBC) [Entitic vol] 91.3 fL Normal 81-99 [facility] Comment on above: Performed By: #### L 100.0100 #### [facility] [address] [place], [address] Monocytes/100 WBC (Bld) 6.0 % Normal 0-10 [facility] Comment on above: Performed By: #### L 100.0100 #### [facility] [address] [place], [address] Neutrophils/100 WBC (Bld) 55.3 % Normal 47-70 [facility] Comment on above: Performed By: #### L 100.0100 #### [facility] [address] [place], [address] Nucleated RBC (Bld) [#/Vol] 0 10*3/uL Normal 0-5 [facility] Comment on above: Performed By: #### L 100.0100 #### [facility] [address] [place], [address] Platelet mean volume (Bld) [Entitic vol] 10.0 fL Normal 6.2-12.0 [facility] Comment on above: Performed By: #### L 100.0100 #### [facility] [address] [place], [address] Platelets (Bld) [#/Vol] 333 10*3/uL Normal 150-450 [facility] Comment on above: Performed By: #### L 100.0100 #### [facility] [address] [place], [address] RBC (Bld) [#/Vol] 4.38 10*6/uL Normal 4.2-5.4 [facility] Comment on above: Performed By: #### L 100.0100 #### [facility] [address] [place], [address] RDW SD 47.6 fl High 35.1-43.9 [facility] Comment on above: Performed By: #### L 100.0100 #### [facility] [address] [place], [address] WBC (Bld) [#/Vol] 10.7 10*3/uL Normal 4.4-11.0 [facility] Comment on above: Performed By: #### L 100.0100 #### [facility] [address] [place], [address] Carbon dioxide, total [Moles /volume] in Central venous bloodOrdered By: Allyson Deleon on 09-23-2024 CO2 [Moles/Vol] 22.3 mmol/L 21.0-32.0 [facility] Chloride assayOrdered By: Maged Deleon on 09-23-2024 Chloride [Moles/Vol] 108 mmol/L 98-108 [facility] Comprehensive Metabolic Prof ilon 09-23-2024 Albumin [Mass/Vol] 4.2 g/dL Normal 3.4-4.8 [facility] Comment on above: Performed By: #### L 501.080 #### [facility] [address] [place], [address] Albumin/Globulin [Mass ratio] 1.6 {ratio} Normal 0.9-2.4 [facility] Comment on above: Performed By: #### L 501.080 #### [facility] [address] [place], [address] ALK PHOS 48 U/L Normal 35-104 [facility] Comment on above: Performed By: #### L 501.080 #### [facility] [address] [place], [address] ALT [Catalytic activity/Vol] 6 U/L Normal <=34 [facility] Comment on above: Performed By: #### L 501.080 #### [facility] [address] [place], [address] AST [Catalytic activity/Vol] 12 U/L Normal <=31 [facility] Comment on above: Performed By: #### L 501.080 #### [facility] [address] [place], [address] Bilirubin [Mass/Vol] 0.53 mg/dL Normal 0.00-1.30 [facility] Comment on above: Performed By: #### L 501.080 #### [facility] [address] [place], [address] BUN/CRE 22.1 RATIO High 10-20 [facility] Comment on above: Performed By: #### L 501.080 #### [facility] [address] [place], [address] Calcium [Mass/Vol] 9.5 mg/dL Normal 7.6-11.0 [facility] Comment on above: Performed By: #### L 501.080 #### [facility] [address] [place], [address] Chloride [Moles/Vol] 108 mmol/L Normal 98-108 [facility] Comment on above: Performed By: #### L 501.080 #### [facility] [address] [place], [address] CO2 [Moles/Vol] 22.3 mmol/L Normal 21.0-32.0 [facility] Comment on above: Performed By: #### L 501.080 #### [facility] [address] [place], [address] Creatinine [Mass/Vol] 1.10 mg/dL Normal 0.70-1.20 [facility] Comment on above: Performed By: #### L 501.080 #### [facility] [address] [place], [address] GAP 12 Normal 5-15 [facility] Comment on above: Performed By: #### L 501.080 #### [facility] [address] [place], [address] GFR/1.73 sq M.predicted among non-blacks MDRD (S/P/Bld) [Vol rate/Area] 54 mL/min/{1.73_m2} Low >60 [facility] Comment on above: Result Comment: mL/m in/1.73m2 CKD-EPI Creatinine Equation (2020) Performed By: #### L 501.080 #### [facility] [address] [place], [address] Globulin (S) [Mass/Vol] 2.6 g/dL Normal 2.2-4.2 [facility] Comment on above: Performed By: #### L 501.080 #### [facility] [address] [place], [address] Glucose [Mass/Vol] 105 mg/dL High 70-99 [facility] Comment on above: Performed By: #### L 501.080 #### [facility] [address] [place], [address] Potassium [Moles/Vol] 3.9 mmol/L Normal 3.3-5.1 [facility] Comment on above: Performed By: #### L 501.080 #### [facility] [address] [place], [address] Sodium [Moles/Vol] 142 mmol/L Normal 133-145 [facility] Comment on above: Performed By: #### L 501.080 #### [facility] [address] [place], [address] T PROT 6.8 g/dL Normal 5.9-8.4 [facility] Comment on above: Performed By: #### L 501.080 #### [facility] [address] [place], [address] Urea nitrogen [Mass/Vol] 24 mg/dL High 4-19 [facility] Comment on above: Performed By: #### L 501.080 #### [facility] [address] [place], [place], [address] Electrocardiogram reportOrde red By: Maurice Mac on 09-23-2024 EKG study [facility] Cardiovascular Services [address] [place] [address] 12 Lead EKG 09/23/24 1058 MR#: [id number] Acct: [id number] Name: FRANCHESKA CROSS Rep #:[id number] : 1955 69 From: Maurice Mac MD Attending Dr: Dr. Allyson Hercules DO Status: PRE [facility] Ordering Dr: Allyson Hercules DO D ate: 09/23/24 Location: [facility] Sex: F C Admitted: Test Reason : [...] Abnormal ECG Confirmed by MAURICE MAC MD ([id number]), associate editor HANNA GARZA ([id number]) on 51:01:18 PM Referred By: Allyson Hercules Confirmed By: MAURIEC MAC MD 09/23/24 1307 Date _ Maurice Mac MD CC: Dr. Janey Camp MD; Dr. Allyson Hercules DO ~ Signed [facility] Other Phone: Eosinophil percentageOrdered By: Allyson Deleon on 09-23-2024 Eosinophils/100 WBC (Bld) 3.1 % 0-5 [facility] Erythrocyte distribution wid th ratioOrdered By: Allyson Deleon on 09-23-2024 Erythrocyte distribution width (RBC) [Ratio] 14.2 % 11.6-14.6 [facility] Erythrocyte distribution wid th standard deviationOrdered By: Allyson Deleon on 09-23-2024 Erythrocyte distribution width (RBC) [Ratio] 47.6 fl High 35.1-43.9 [facility] Glomerular filtration rate ( GFR) estimation/1.73 sq m using serum, plasma, or whole bOrdered By: Allyson Deleon on 09-23-2024 GFR/1.73 sq M.predicted among non-blacks MDRD (S/P/Bld) [Vol rate/Area] 54 mL/min/{1.73_m2} Low >60 [facility] Comment on above: mL/min/1.73m2 CKD-EP I Creatinine Equation (2020) Hematocrit Auto (Bld) [Volum e fraction]Ordered By: Allyson Deleon on 09-23-2024 Hematocrit (Bld) [Volume fraction] 40.0 % 37-47 [facility] Hemoglobin A1con 09-23-2024 HbA1c (Bld) [Mass fraction] 6.2 % High <=5.6 [facility] Comment on above: Result Comment: Norm al < 5.7 % Prediabetic 5.7 - 6.4 % Diabetic >or= 6.5 % Please note range changes. Performed By: #### L 501.080 #### [facility] [address] [place], [place], [id number] Hemoglobin A1c percentageOrd ered By: Allyson Deleon on 09-23-2024 HbA1c (Bld) [Mass fraction] 6.2 % High <5.7 [facility] Comment on above: Normal < 5.7 % Predi abetic 5.7 - 6.4 % Diabetic >or= 6.5 % Please note range changes. Hemoglobin measurementOrdere d By: Allyson Deleon on 09-23-2024 Hemoglobin (Bld) [Mass/Vol] 13.0 g/dL 12.0-15.0 [facility] Immature granulocytes/100 WB C Auto (Bld)Ordered By: Allyson Deleon on 09-23-2024 Immature granulocytes/100 WBC (Bld) 0.400 % 0.0-0.9 [facility] Comment on above: IG% - Immature Granu locytes (promyelocytes, myelocytes and metamyelocytes) > 1% indicates that a LEFT SHIFT is Present. Laboratory - Chemistry and C hemistry - challengeOrdered By: Allyson Deleon on 09-23-2024 AST [Catalytic activity/Vol] 12 U/L <32 [facility] MCV (mean corpuscular volume ) determinationOrdered By: Allyson Deleon on 09-23-2024 MCV (RBC) [Entitic vol] 91.3 fL 81-99 [facility] MR/PAT.ANEon 09-23-2024 MR/PAT.ANE [facility] Medical Records Department [address] [place] [address] PAT - Anesthesia 09/23/24 1309 MR#: [id number] Acct: [id number] Name: FRANCHESKA CROSS Rep #: [id number] : 1955 69 From: Gamaliel Moya MD PCP: Dr. 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 Female Yes 09/15/24 14:08 HX of Motion [...] 08/14/24 13:54 Respiratory Assessment Respiratory Assessment - 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: Respiratory Tract Infection Hx - 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 Hx Respiratory Tract Infection No 09/15/24 14:08 STOP Sleep Apnea STOP Sleep Apnea - 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: STOP Sleep Apnea - 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 Hx Hypertension Yes 09/15/24 14:08 Hx Sleep [...] Tobacco Use History Tobacco Use History - 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: Tobacco Use History - 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 Specify any problems Hx of Preganancy in last 3 No 09/15/24 14:08 Months Nurse Filling Out Transfusion [facility] 09/15/24 14:08 Questions: Date: 09/15/24 09/15/24 14:08 Time: 14:14 09/15/24 14:08 Patient unable to answer at this time (ie. confused, unrespo /Reproduction History /Reproductive History - 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: /Reproductive Hx- 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 Hx Now No 09/15/24 14:08 Gestational Age (in weeks): EDC: Hx Hx Para Hx Section SAB No 09/15/24 14:08 [facility] Medical History Wears glasses Diabetes Ambulates with [...] wn History (more content not included)... Normal [facility] Magnesiumon 09-23-2024 Magnesium [Mass/Vol] 2.1 mg/dL Normal 1.5-2.2 [facility] Comment on above: Performed By: #### L 501.080 #### [facility] [address] [place], [address] Magnesium measurement (mass/ volume)Ordered By: Allyson Deleon on 09-23-2024 Magnesium (Unsp spec) [Mass/Vol] 2.1 mg/dL 1.5-2.2 [facility] Mean corpuscular hemoglobin (MCH) determinationOrdered By: Allyson Deleon on 09-23-2024 MCH (RBC) [Entitic mass] 29.7 pg 27.0-32.0 [facility] Mean corpuscular hemoglobin concentration (MCHC) determinationOrdered By: Allyson Deleon on 09-23-2024 MCHC (RBC) [Mass/Vol] 32.5 g/dL 32-36 [facility] Mean platelet volume determi nationOrdered By: Allyson Deleon on 09-23-2024 Platelet mean volume (Bld) [Entitic vol] 10.0 fL 6.2-12.0 [facility] Monocyte percentageOrdered B y: Allyson Deleon on 09-23-2024 Monocytes/100 WBC (Bld) 6.0 % 0-10 [facility] Neutrophil percentageOrdered By: Allyson Deleon on 09-23-2024 Neutrophils/100 WBC (Bld) 55.3 % 47-70 [facility] Nucleated red blood cell per centageOrdered By: Allyson Deleon on 09-23-2024 Nucleated RBC/100 WBC (Bld) [Ratio] 0 % 0-5 [facility] Consumer Marketing Analyst Office Visit Reporton 09-23-2024 Consumer Marketing Analyst Office Visit Report [facility]'s [address], [address] [place] [address] OFFICE VISIT Date of Service: 09/23/24 MR#: [id number] Acct: [id number] Name: FRANCHESKA CROSS Rep #: [id number] : 1955 Provider: Dr. 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 Normal [facility] Pelvis W/WO Contraston 09-23 Pelvis W/WO Contrast [facility] Imaging Services [address] [place] [address] Pelvis W/WO Contrast MR#: [id number] Acct: [id number] Name: FRANCHESKA CROSS Rep #: [id number] : 1955 F 69 From: Jose Angel Ortiz MD PCP: Dr. Janey Camp MD Status: REG CLI Study: Pelvis W/WO Contrast Date of Exam: 09/23/24 Exam# [id number] Ordering Dr: Allyson Hercules DO PROCEDURE: PELVIS W/WO CONTRAST, 09/23/2024 REASON FOR EXAM: PLACEMENT OF CERVICAL FIBROID PREOP TECHNIQUE: Multisequence multiplanar MR of the pelvis was performed with and without IV contrast. IV contrast: 18 mL Clariscan COMPARISON: 07/27/2024 FINDINGS: Variable overall mild motion limitation. Some sequences are mild/moderately motion degraded. Note diffusion and coronal small pkhkq-bb-[id number] T2 sequences were not performed. Visualized bowel: [...] 3. Additional description as above. Reading Location: [id number] CC: Dr. Janey Camp MD; Dr. Allyson Hercules DO Skidder Loader: Signed Normal [facility] Platelet countOrdered By: Maged Deleon on 09-23-2024 Platelets (Bld) [#/Vol] 333 10*3/uL 150-450 [facility] Potassium measurement (mass/ volume)Ordered By: Allyson Deleon on 09-23-2024 Potassium (Unsp spec) [Mass/Vol] 3.9 mmol/L 3.3-5.1 [facility] RBC Auto (Bld) [#/Vol]Ordere d By: Allyson Deleon on 09-23-2024 RBC (Bld) [#/Vol] 4.38 10*6/uL 4.2-5.4 [facility] Serum creatinine measurement (mass/volume)Ordered By: Allyson Deleon on 09-23-2024 Creatinine [Mass/Vol] 1.10 mg/dL 0.70-1.20 [facility] Serum globulin measurementOr dered By: Allysno Deleon on 09-23-2024 Globulin (S) [Mass/Vol] 2.6 g/dL 2.2-4.2 [facility] Serum glucose measurement (m ass/volume)Ordered By: Allyson Deleon on 09-23-2024 Glucose [Mass/Vol] 105 mg/dL High 70-99 [facility] Serum or plasma alanine canchola otransferase (ALT) measurementOrdered By: Allyson Deleon on 09-23-2024 ALT [Catalytic activity/Vol] 6 U/L <35 [facility] Serum or plasma albumin martin urement (mass/volume)Ordered By: Allyson Deleon on 09-23-2024 Albumin [Mass/Vol] 4.2 g/dL 3.4-4.8 [facility] Serum or plasma albumin/glob ulin mass ratioOrdered By: Allyson Deleon on 09-23-2024 Albumin/Globulin [Mass ratio] 1.6 {ratio} 0.9-2.4 [facility] Serum or plasma alkaline rosalio sphatase measurementOrdered By: Allyson Deleon on 09-23-2024 ALP [Catalytic activity/Vol] 48 U/L 35-104 [facility] Serum or plasma calcium martin urement (mass/volume)Ordered By: Allyson Deleon on 09-23-2024 Calcium [Mass/Vol] 9.5 mg/dL 7.6-11.0 [facility] Serum or plasma urea nitroge n measurement (mass/volume)Ordered By: Allyson Deleon on 09-23-2024 Urea nitrogen [Mass/Vol] 24 mg/dL High 4-19 [facility] Sodium levelOrdered By: Meme Deleon on 09-23-2024 Sodium [Moles/Vol] 142 mmol/L 133-145 [facility] Total proteinOrdered By: Alessia Deleon on 09-23-2024 Protein [Mass/Vol] 6.8 g/dL 5.9-8.4 [facility] Type AND Screen - PAT ONLYon 09-23-2024 ABO and Rh group Nom (Bld) Blood group O Rh(D) positive Normal [facility] Comment on above: Order Comment: Surge ry Date: 09/29/24Reason for Laboratory Test [id number] Performed By: #### L 501.080 #### [facility] [address], [place], [id number] White blood cell (WBC) count Ordered By: Allyson Deleon on 09-23-2024 WBC (Bld) [#/Vol] 10.7 10*3/uL 4.4-11.0 [facility] Absolute lymphocyte countOrd ered By: Selina Beal on 08-05-2024 Lymphocytes Auto (Unsp spec) [#/Vol] 3.10 10*3/uL 0.83-4.51 [facility] Absolute neutrophil countOrd ered By: Selina Beal on 08-05-2024 Neutrophils (Bld) [#/Vol] 5.9 10*3/uL 2.0-7.7 [facility] Automated lymphocyte count a s percentage of total leukocytesOrdered By: Selina Beal on 08-05-2024 Lymphocytes/100 WBC Auto (Unsp spec) 31.8 % 19-41 [facility] Basophil percentageOrdered B y: Selina Beal on 08-05-2024 Basophils/100 WBC (Bld) 0.6 % 0-1 [facility] CBC W/Diff, Automatedon Absolute Lymph 3.10 X10 3/uL Normal 0.83-4.51 [facility] Comment on above: Performed By: #### L 100.0100 #### [facility] [address] [place], [address] Absolute Neut 5.9 X10 3/uL Normal 2.0-7.7 [facility] Comment on above: Performed By: #### L 100.0100 #### [facility] [address] [place], [address] Basophils/100 WBC (Bld) 0.6 % Normal 0-1 [facility] Comment on above: Performed By: #### L 100.0100 #### [facility] [address] [place], [address] Eosinophils/100 WBC (Bld) 2.5 % Normal 0-5 [facility] Comment on above: Performed By: #### L 100.0100 #### [facility] [address] [place], [address] Erythrocyte distribution width (RBC) [Ratio] 14.5 % Normal 11.6-14.6 [facility] Comment on above: Performed By: #### L 100.0100 #### [facility] [address] [place], [address] Hematocrit (Bld) [Volume fraction] 37.3 % Normal 37-47 [facility] Comment on above: Performed By: #### L 100.0100 #### [facility] [address] [place], [address] Hemoglobin (Bld) [Mass/Vol] 12.0 g/dL Normal 12.0-15.0 [facility] Comment on above: Performed By: #### L 100.0100 #### [facility] [address] [place], [address] IG% 0.300 Normal 0.0-0.9 [facility] Comment on above: Result Comment: IG% - Immature Granulocytes (promyelocytes, myelocytes and metamyelocytes) > 1% indicates that a LEFT SHIFT is Present. Performed By: #### L 100.0100 #### [facility] [address] [place], [address] Lymphocytes/100 WBC (Bld) 31.8 % Normal 19-41 [facility] Comment on above: Performed By: #### L 100.0100 #### [facility] [address] [place], [address] MCH (RBC) [Entitic mass] 29.2 pg Normal 27.0-32.0 [facility] Comment on above: Performed By: #### L 100.0100 #### [facility] [address] [place], [address] MCHC (RBC) [Mass/Vol] 32.2 g/dL Normal 32-36 [facility] Comment on above: Performed By: #### L 100.0100 #### [facility] [address] [place], [address] MCV (RBC) [Entitic vol] 90.8 fL Normal 81-99 [facility] Comment on above: Performed By: #### L 100.0100 #### [facility] [address] [place], [address] Monocytes/100 WBC (Bld) 4.1 % Normal 0-10 [facility] Comment on above: Performed By: #### L 100.0100 #### [facility] [address] [place], [address] Neutrophils/100 WBC (Bld) 60.7 % Normal 47-70 [facility] Comment on above: Performed By: #### L 100.0100 #### [facility] [address] [place], [address] Nucleated RBC (Bld) [#/Vol] 0 10*3/uL Normal 0-5 [facility] Comment on above: Performed By: #### L 100.0100 #### [facility] [address] [place], [address] Platelet mean volume (Bld) [Entitic vol] 10.0 fL Normal 6.2-12.0 [facility] Comment on above: Performed By: #### L 100.0100 #### [facility] [address] [place], [address] Platelets (Bld) [#/Vol] 328 10*3/uL Normal 150-450 [facility] Comment on above: Performed By: #### L 100.0100 #### [facility] [address] [place], [address] RBC (Bld) [#/Vol] 4.11 10*6/uL Low 4.2-5.4 [facility] Comment on above: Performed By: #### L 100.0100 #### [facility] [address] [place], [address] RDW SD 47.6 fl High 35.1-43.9 [facility] Comment on above: Performed By: #### L 100.0100 #### [facility] [address] [place], [address] WBC (Bld) [#/Vol] 9.7 10*3/uL Normal 4.4-11.0 [facility] Comment on above: Performed By: #### L 100.0100 #### [facility] [address] [place], [address] Eosinophil percentageOrdered By: Selina Beal on 08-05-2024 Eosinophils/100 WBC (Bld) 2.5 % 0-5 [facility] Erythrocyte distribution wid th (RBC) [Ratio]Ordered By: Selina Beal on 08-05-2024 Erythrocyte distribution width (RBC) [Entitic vol] 47.6 fL High 35.1-43.9 [facility] Erythrocyte distribution wid th ratioOrdered By: Selina Beal on 08-05-2024 Erythrocyte distribution width (RBC) [Ratio] 14.5 % 11.6-14.6 [facility] Erythrocyte distribution wid th standard deviationOrdered By: Selina Beal on 08-05-2024 Erythrocyte distribution width (RBC) [Ratio] 47.6 fl High 35.1-43.9 [facility] Hematocrit Auto (Bld) [Volum e fraction]Ordered By: Selina Beal on 08-05-2024 Hematocrit (Bld) [Volume fraction] 37.3 % 37-47 [facility] Hemoglobin measurementOrdere d By: Selina Beal on 08-05-2024 Hemoglobin (Bld) [Mass/Vol] 12.0 g/dL 12.0-15.0 [facility] Immature granulocytes/100 WB C Auto (Bld)Ordered By: Selina Beal on 08-05-2024 Immature granulocytes/100 WBC (Bld) 0.300 % 0.0-0.9 [facility] Comment on above: IG% - Immature Granu locytes (promyelocytes, myelocytes and metamyelocytes) > 1% indicates that a LEFT SHIFT is Present. Lymphocytes Auto (Unsp spec) [#/Vol]Ordered By: Selina Beal on 08-05-2024 Lymphocytes (Bld) [#/Vol] 3.10 10*3/uL 0.83-4.51 [facility] Lymphocytes/100 WBC Auto (Un sp spec)Ordered By: Selina Beal on 08-05-2024 Lymphocytes/100 WBC (Bld) 31.8 % 19-41 [facility] MCV (mean corpuscular volume ) determinationOrdered By: Selina Beal on 08-05-2024 MCV (RBC) [Entitic vol] 90.8 fL 81-99 [facility] Mean corpuscular hemoglobin (MCH) determinationOrdered By: Selina Beal on 08-05-2024 MCH (RBC) [Entitic mass] 29.2 pg 27.0-32.0 [facility] Mean corpuscular hemoglobin concentration (MCHC) determinationOrdered By: Selina Beal on 08-05-2024 MCHC (RBC) [Mass/Vol] 32.2 g/dL 32-36 [facility] Mean platelet volume determi nationOrdered By: Selina Bael on 08-05-2024 Platelet mean volume (Bld) [Entitic vol] 10.0 fL 6.2-12.0 [facility] Monocyte percentageOrdered B y: Selina Beal on 08-05-2024 Monocytes/100 WBC (Bld) 4.1 % 0-10 [facility] Neutrophil percentageOrdered By: Selina Beal on 08-05-2024 Neutrophils/100 WBC (Bld) 60.7 % 47-70 [facility] Nucleated red blood cell per centageOrdered By: Selina Beal on 08-05-2024 Nucleated RBC/100 WBC (Bld) [Ratio] 0 % 0-5 [facility] Platelet countOrdered By: Colby Beal on 08-05-2024 Platelets (Bld) [#/Vol] 328 10*3/uL 150-450 [facility] RBC Auto (Bld) [#/Vol]Ordere d By: Selina Beal on 08-05-2024 RBC (Bld) [#/Vol] 4.11 10*6/uL Low 4.2-5.4 [facility] White blood cell (WBC) count Ordered By: Selina Beal on 08-05-2024 WBC (Bld) [#/Vol] 9.7 10*3/uL 4.4-11.0 [facility] Transvaginal Non-on 07-27-2024 Transvaginal Non- [facility] Imaging Services [address] [place] [address] Transvaginal Non- MR#: [id number] Acct: [id number] Name: FRANCHESKA CROSS Rep #: [id number] : 1955 F 68 From: Jose Angel Hyman MD PCP: Dr. Janey Camp MD Status: DEP CLI Study: Transvaginal Non- Date of Exam: Exam# [id number] Ordering Dr: Selina Beal ADDENDUM by Dr. Jose Angel Hyman MD on 08/06/24 at 0928 Endometrial thickness is 3 mm. Reading Location: [facility] 08/06/24 0929 Date cc: Dr. Janey Camp [...] Non- IMPRESSION: Fibroid as above. Reading Location: [facility] CC: Dr. Janey Camp MD; Dr. Selina Beal MD Skidder Loader: Signed Normal [facility] PAP IG HPV APTIMA 16/18,45on 07-24-2024 ADEQ Comment Normal . [facility] Comment on above: Order Comment: Speci men Comment: [id number] Specimen Comment: Source.............Cervix Specimen Comment: Other..............Post Menopausal Specimen Comment: No. of containers..01 ThinPrep Vial Result Comment: Sati sfactory for evaluation. Endocervical and/or squamous metaplastic cells (endocervical component) are present. Performed By: #### L 7400.0280 #### [facility] [address] [place], [place], [address] COMM . Normal . [facility] Comment on above: Order Comment: Speci men Comment: [id number] Specimen Comment: Source.............Cervix Specimen Comment: Other..............Post Menopausal Specimen Comment: No. of containers..01 ThinPrep Vial Performed By: #### L 7400.0280 #### [facility] [address] [place], [address] COMMENT Comment Normal . [facility] Comment on above: Order Comment: Speci men Comment: [id number] Specimen Comment: Source.............Cervix Specimen Comment: Other..............Post Menopausal Specimen Comment: No. of containers..01 ThinPrep Vial Result Comment: This liquid based ThinPrep(R) pap test was screened with the use of an image guided system. Performed By: #### L 7400.0280 #### [facility] [address] [place], [place], [address] DIAG Comment Normal . [facility] Comment on above: Order Comment: Speci men Comment: [id number] Specimen Comment: Source.............Cervix Specimen Comment: Other..............Post Menopausal Specimen Comment: No. of containers..01 ThinPrep Vial Result Comment: NEGA TIVE FOR INTRAEPITHELIAL LESION OR MALIGNANCY. CELLULAR CHANGES ASSOCIATED WITH ATROPHY ARE PRESENT. Performed By: #### L 7400.0280 #### [facility] [address] [place], [place], [address] HPV APTIMA, HR Negative Normal Negative [facility] Comment on above: Order Comment: Speci men Comment: [id number] Specimen Comment: Source.............Cervix Specimen Comment: Other..............Post Menopausal Specimen Comment: No. of containers..01 ThinPrep Vial Result Comment: This nucleic acid amplification test detects fourteen high- risk HPV types (16,18,31,33,35,39,45,51,52,56,58,59,66,68) without differentiation. Performed By: #### L 7400.0280 #### [facility] [address] [place], [address] HPV Cecilia Rfx Comment Normal . [facility] Comment on above: Order Comment: Speci men Comment: [id number] Specimen Comment: Source.............Cervix Specimen Comment: Other..............Post Menopausal Specimen Comment: No. of containers..01 ThinPrep Vial Result Comment: Crit edgar not met, HPV Genotype not performed. Performed at: - [address] [id number] Pantograph Transferrer: Amber Boles MD, Phone: [phone] Performed at: = - [facility] [id number] Pantograph Transferrer: Amber Boles MD, Phone: [phone] Performed By: #### L 7400.0280 #### [facility] [address] [place], [address] PAPSMR Comment Normal . [facility] Comment on above: Order Comment: Speci men Comment: [id number] Specimen Comment: Source.............Cervix Specimen Comment: Other..............Post Menopausal Specimen Comment: No. of containers..01 ThinPrep Vial Result Comment: The Pap smear is a screening test designed to aid in the detection of premalignant and malignant conditions of the uterine cervix. It is not a diagnostic procedure and should not be used as the sole means of detecting cervical cancer. Both false-positive and false-negative reports do occur. Performed By: #### L 7400.0280 #### [facility] [address] [place], [place], [address] PERFORM Comment Normal . [facility] Comment on above: Order Comment: Speci men Comment: [id number] Specimen Comment: Source.............Cervix Specimen Comment: Other..............Post Menopausal Specimen Comment: No. of containers..01 ThinPrep Vial Result Comment: Bee Pierre, Manager Drug (ASCP) Performed By: #### L 7400.0280 #### [facility] [address] [place], [place], [address] Surgical pathology reportOrd ered By: Terri Dykes on 07-24-2024 Surgical pathology study [facility] Cervical or vaginal specimen microscopic examination by liquid based cytology (reportOrdered By: Selina Beal on 07-22-2024 Cytology report Cyto stain.thin prep Doc (Cvx/Vag) Comment . [facility] Comment on above: Criteria not met, HP V Genotype not performed.Performed at: [address] [id number] Director: Amber Boles MD, Phone: [phone] at: =[address] [id number] Director: Amber Boles MD, Phone: [phone] Cervical or vagninal specime n microscopic examination by cytology stain (reported asOrdered By: Selina Beal on 07-22-2024 Cytology report Cyto stain Doc (Cvx/Vag) Comment . [facility] Comment on above: The Pap smear is a s creening test designed to aid in thedetection of premalignant and malignant conditions of theuterine cervix. It is not a diagnostic procedure andshould not be used as the sole means of detecting cervicalcancer. Both false-positive and false-negative reports dooccur. Boring Machine Operator Production Cyto stain Nom (C vx/Vag) [ID]Ordered By: Selina Beal on 07-22-2024 Pap Smear Performed By Comment . [facility] Comment on above: Adrian frye, Manager Drug (ASCP) Cytology report Cyto stain D oc (Cvx/Vag)Ordered By: Selina Beal on 07-22-2024 Thin Prep Pap Smear Comment . [facility] Comment on above: The Pap smear [...] 07-22-2024 HPV Genotype Special Info Comment . [facility] Comment on above: Criteria not met, HP V Genotype not performed.Performed at: - [address] [id number] Director: Amber Boles MD, Phone: [phone] at: =[facility] [id number] Director: Amber Boles MD, Phone: [phone] Detection in cervical specim en of any of human papilloma virus (HPV) 16, 18, 31, 33,Ordered By: Selina Beal on 07-22-2024 HPV 16+18+31+33+35+39+45+51+ 52+56+58+59+66+68 DNA Probe+sig amp Ql (Cvx) Negative Negative [facility] Comment on above: This nucleic acid am plification test detects fourteen high-risk HPV types (16,18,31,33,35,39,45,51,52,56,58,59,66,68)without differentiation. HPV 16+18+31+33+35+39+45+51+ 52+56+58+59+66+68 DNA Probe+sig amp Ql (Cvx)Ordered By: Selina Beal on 07-22-2024 Human Papillomavirus High Risk Negative Negative [facility] Comment on above: This nucleic acid am plification test detects fourteen high-risk HPV types (16,18,31,33,35,39,45,51,52,56,58,59,66,68)without differentiation. Image-guided ThinPrep PapOrd ered By: Selina Beal on 07-22-2024 Pap Smear Note Comment . [facility] Comment on above: This liquid based Th inPrep(R) pap test was screened withthe use of an image guided system. Image-guided liquid-based Pa pOrdered By: Selnia Beal on 07-22-2024 Pap Smear Diagnosis Comment . [facility] Comment on above: NEGATIVE FOR INTRAEP ITHELIAL LESION OR MALIGNANCY.CELLULAR CHANGES ASSOCIATED WITH ATROPHY ARE PRESENT. Laboratory - CytologyOrdered By: Selina Beal on 07-22-2024 Boring Machine Operator Production Cyto stain Nom (Cvx/Vag) [ID] Comment . [facility] Comment on above: Adrian frye, Manager Drug (ASCP) Laboratory - Miscellaneous t estsOrdered By: Selina Beal on 07-22-2024 Service comment (Unsp spec) [Interp] . . [facility] No Panel InformationOrdered By: Selina Beal on 07-22-2024 Pap Smear Specimen Adequacy Comment . [facility] Comment on above: Satisfactory for bridger luation. Endocervical and/or squamous metaplasticcells (endocervical component) are present. Consumer Marketing Analyst Office Visit Reporton 07-22-2024 Consumer Marketing Analyst Office Visit Report [facility]'s [address], [address] [place] [address] OFFICE VISIT Date of Service: 07/22/24 MR#: [id number] Acct: [id number] Name: HIGHFRANCHESKA SERGE Rep #: [id number] : 1955 Provider: Dr. Selina pathak MD Age/Sex: 68/F Location: [facility] [place] Status: Signed Intake Vital Signs 02/19/24 10:53 07/22/24 10:23 Height 5 ft 6 in 5 ft 6 in Weight: 197 lb 8 oz BMI 31.8 BP 133/84 H Intake Visit Reasons: Follow up D C, bleeding again Anatomy Professor Required: No Allergies hydrocodone (From Vicodin) Allergy [...] normal appearance (more content not included)... Normal [facility] Service comment (Unsp spec) [Interp]Ordered By: Selina Beal on 07-22-2024 Pap Smear Comment (3) . . [facility] Surgery Specimen Level Sandi 07-22-2024 Surgery Specimen Level IV ---- Patient Age/Sex Location Account Attending Physician ---- FRANCHESKA CROSS 68/F LABSPEC [id number] Dr. Selina Beal MD ---- Specimen: [id number] Received: 07/22/24 Status: MARISA Cisneros Num: [id number] Spec Type: ENDOM BX/C Subm Dr: Dr. Selina Beal MD HEADER OPERATION: Endometrial biopsy PRE-OP DIAGNOSIS: [...] is totally submitted in one cassette. 07/22/2024 CPT:36224 ---- Patient Age/Sex Location Account Attending Physician ---- FRANCHESKA CROSS 68/F LABSPEC [id number] Dr. Selina Beal MD ---- Signed (signature on file) Dr. Terri Dykes MD 07/24/24 1644 ---- Normal [facility] Comment on above: Performed By: #### L 501.080 #### [facility] [place], [address] Decalcification bone/plaqueo n 05-18-2024 Decalcification bone/plaque ---- Patient Age/Sex Location Account Attending Physician ---- FRANCHESKA CROSS 68/F LABSPEC [id number] Dr. Emerson Miranda MD ---- Specimen: [id number] Received: 05/18/24 Status: MARISA Cisneros Num: [id number] Spec Type: TOTAL KNEE Subm Dr: Dr. [...] prominent osteophyte formation, eburnation and bone erosion. [employer] sections are submitted in two cassettes as follows: 1 - soft tissue, 2 - bone after decalcification. / GWEN. 05/19/2024 TC:5 CPT: 54434, 53130 ---- Patient Age/Sex Location Account Attending Physician ---- FRANCHESKA CROSS 68/F LABSPEC [id number] Dr. Emerson Miranda MD ---- Signed (signature on file) Dr. José Miguel Lujan MD 05/22/24 1446 ---- Normal [facility] Comment on above: Performed By: #### L 501.080 #### [facility] [address] [place] [address], [address] 12 Lead EKGon 05-12-2024 12 Lead EKG [facility] Cardiovascular Services [address] [place] [address] 12 Lead EKG 05/12/24 0957 MR#: [id number] Acct: [id number] Name: FRANCHESKA CROSS Rep #: [id number] : 1955 68 From: Marcelo Vizcaino MD [...] abnormality Abnormal ECG Confirmed by Marcelo Vizcaino ([id number]), associate editor HANNA GARZA ([id number]) on 05/12/2024 1:19:27 PM Referred By: Emerson Miranda Confirmed By: Marcelo Vizcaino 05/12/24 1319 Date Marcelo Vizcaino MD CC: Dr. Janey Camp MD; Dr. Emerson Miranda MD Signed Normal [facility] Absolute neutrophil countOrd ered By: Emerson Miranda on 04-21-2024 Neutrophils (Bld) [#/Vol] 6.3 10*3/uL 2.0-7.7 [facility] Albumin, Serumon 04-21-2024 Albumin [Mass/Vol] 3.4 g/dL Normal 3.2-5.0 [facility] Comment on above: Performed By: #### L 100.0100 #### [facility] [address] [place], [place], [address] Basic Metabolic Profile (BMP )on 04-21-2024 BUN/CRE 20.4 RATIO High 10-20 [facility] Comment on above: Performed By: #### L 100.0100 #### [facility] [address] [place], [address] CA,Total 9.2 mg/dL Normal 8.5-10.1 [facility] Comment on above: Performed By: #### L 100.0100 #### [facility] [address] [place], [address] Chloride [Moles/Vol] 110 mmol/L High 98-107 [facility] Comment on above: Performed By: #### L 100.0100 #### [facility] [address] [place], [address] CO2 [Moles/Vol] 26.0 mmol/L Normal 21.0-32.0 [facility] Comment on above: Performed By: #### L 100.0100 #### [facility] [address] [place], [address] Creatinine [Mass/Vol] 1.13 mg/dL High 0.55-1.02 [facility] Comment on above: Result Comment: The validity of the calculated GFR GFRAA in patients over 70 years has not been determined. Clinical correlation is essential. Performed By: #### L 100.0100 #### [facility] [address] [place], [address] EST GFR - AA 61 mL/min Normal >60 [facility] Comment on above: Result Comment: Afri can Serbian GFR Calc Performed By: #### L 100.0100 #### [facility] [address] [place], [address] GAP 5 Normal 5-15 [facility] Comment on above: Performed By: #### L 100.0100 #### [facility] [address] [place], [address] GFR/1.73 sq M.predicted among non-blacks MDRD (S/P/Bld) [Vol rate/Area] 51 mL/min/{1.73_m2} Low >60 [facility] Comment on above: Result Comment: Non- GFR Calc Performed By: #### L 100.0100 #### [facility] [address] [place], [address] Glucose [Mass/Vol] 103 mg/dL Normal 74-106 [facility] Comment on above: Result Comment: Fast ing Glucose result from 100 to 125 mg/dL suggests IMPAIRED HOMEOSTASIS per A.D.A. criteria. Performed By: #### L 100.0100 #### [facility] [address] [place], [address] Potassium [Moles/Vol] 3.5 mmol/L Normal 3.5-5.1 [facility] Comment on above: Performed By: #### L 100.0100 #### [facility] [address] [place], [address] Sodium [Moles/Vol] 142 mmol/L Normal 136-145 [facility] Comment on above: Performed By: #### L 100.0100 #### [facility] [address] [place], [address] Urea nitrogen [Mass/Vol] 23 mg/dL High - [facility] Comment on above: Performed By: #### L 100.0100 #### [facility] [address] [place], [address] Basophil percentageOrdered B y: Emerson Miranda on 04-21-2024 Basophils/100 WBC (Bld) 0.5 % 0-1 [facility] Blood urea nitrogen (BUN)/cr eatinine ratioOrdered By: Emerson Miranda on 04-21-2024 Urea nitrogen/Creatinine [Mass ratio] 20.4 mg/mg High 10- [facility] CBC W/Diff, Automatedon 04-05 Absolute Lymph 3.68 X10 3/uL Normal 0.83-4.51 [facility] Comment on above: Performed By: #### L 100.0100 #### [facility] [address] [place], [address] Absolute Neut 6.3 X10 3/uL Normal 2.0-7.7 [facility] Comment on above: Performed By: #### L 100.0100 #### [facility] [address] [place], [address] Basophils/100 WBC (Bld) 0.5 % Normal 0-1 [facility] Comment on above: Performed By: #### L 100.0100 #### [facility] [address] [place], [address] Eosinophils/100 WBC (Bld) 2.8 % Normal 0-5 [facility] Comment on above: Performed By: #### L 100.0100 #### [facility] [address] [place], [address] Erythrocyte distribution width (RBC) [Ratio] 14.0 % Normal 11.6-14.6 [facility] Comment on above: Performed By: #### L 100.0100 #### [facility] [address] [place], [address] Hematocrit (Bld) [Volume fraction] 39.8 % Normal 37-47 [facility] Comment on above: Performed By: #### L 100.0100 #### [facility] [address] [place], [address] Hemoglobin (Bld) [Mass/Vol] 12.7 g/dL Normal 12.0-15.0 [facility] Comment on above: Performed By: #### L 100.0100 #### [facility] [address] [place], [address] IG% 0.400 Normal 0.0-0.9 [facility] Comment on above: Result Comment: IG% - Immature Granulocytes (promyelocytes, myelocytes and metamyelocytes) > 1% indicates that a LEFT SHIFT is Present. Performed By: #### L 100.0100 #### [facility] [address] [place], [address] Lymphocytes/100 WBC (Bld) 33.2 % Normal 19-41 [facility] Comment on above: Performed By: #### L 100.0100 #### [facility] [address] [place], [address] MCH (RBC) [Entitic mass] 28.6 pg Normal 27.0-32.0 [facility] Comment on above: Performed By: #### L 100.0100 #### [facility] [address] [place], [address] MCHC (RBC) [Mass/Vol] 31.9 g/dL Low 32-36 [facility] Comment on above: Performed By: #### L 100.0100 #### [facility] [address] [place], [address] MCV (RBC) [Entitic vol] 89.6 fL Normal 81-99 [facility] Comment on above: Performed By: #### L 100.0100 #### [facility] [address] [place], [address] Monocytes/100 WBC (Bld) 6.7 % Normal 0-10 [facility] Comment on above: Performed By: #### L 100.0100 #### [facility] [address] [place], [address] Neutrophils/100 WBC (Bld) 56.4 % Normal 47-70 [facility] Comment on above: Performed By: #### L 100.0100 #### [facility] [address] [place], [address] Nucleated RBC (Bld) [#/Vol] 0 10*3/uL Normal 0-5 [facility] Comment on above: Performed By: #### L 100.0100 #### [facility] [address] [place], [address] Platelet mean volume (Bld) [Entitic vol] 9.6 fL Normal 6.2-12.0 [facility] Comment on above: Performed By: #### L 100.0100 #### [facility] [address] [place], [address] Platelets (Bld) [#/Vol] 324 10*3/uL Normal 150-450 [facility] Comment on above: Performed By: #### L 100.0100 #### [facility] [address] [place], [address] RBC (Bld) [#/Vol] 4.44 10*6/uL Normal 4.2-5.4 [facility] Comment on above: Performed By: #### L 100.0100 #### [facility] [address] [place], [address] RDW SD 45.7 fl High 35.1-43.9 [facility] Comment on above: Performed By: #### L 100.0100 #### [facility] [address] [place], [address] WBC (Bld) [#/Vol] 11.1 10*3/uL High 4.4-11.0 [facility] Comment on above: Performed By: #### L 100.0100 #### [facility] [address] [facility] [place], [address] Carbon dioxide measurementOr dered By: Emerson Miranda on 04-21-2024 CO2 [Moles/Vol] 26.0 mmol/L 21.0-32.0 [facility] Chest PA and Lateralon 04-21 Chest PA and Lateral [facility] Imaging Services [address] [address] Chest PA and Lateral MR#: [id number] Acct: [id number] Name: FRANCHESKA CROSS Rep #: [id number] : 1955 F 68 From: Joshua Warren MD PCP: Dr. Janey Camp MD Status: [facility] CLI Study: Chest PA and Lateral Date of Exam: 04/21/24 Exam# [id number] Ordering Dr: Emerson Miranda MD [id number] STUDY: X-RAY CHEST REASON FOR EXAM: Female, [...] Janey Camp MD; Dr. Emerson Miranda MD Skidder Loader: Signed Normal [facility] Chloride measurementOrdered By: Emerson Miranda on 04-21-2024 Chloride [Moles/Vol] 110 mmol/L High 98-107 [facility] Eosinophil percentageOrdered By: Emerson Miranda on 04-21-2024 Eosinophils/100 WBC (Bld) 2.8 % 0-5 [facility] Erythrocyte distribution wid th ratioOrdered By: Emerson Miranda on 04-21-2024 Erythrocyte distribution width (RBC) [Ratio] 14.0 % 11.6-14.6 [facility] Erythrocyte distribution wid th standard deviationOrdered By: Emerson Miranda on 04-21-2024 Erythrocyte distribution width (RBC) [Entitic vol] 45.7 fL High 35.1-43.9 [facility] Estimated glomerular filtrat ion rate (GFR) AmericanOrdered By: Emerson Miranda on 04-21-2024 Estimated GFR (MDRD) Amer 61 mL/min >60 [facility] Comment on above: GFR Calc Glomerular filtration rate ( GFR) estimationOrdered By: Emerson Miranda on 04-21-2024 Estimated GFR (MDRD) Non-Af Amer 51 mL/min Low >60 [facility] Comment on above: Non- GFR Calc Glucose measurementOrdered B y: Emerson Miranda on 04-21-2024 Glucose [Mass/Vol] 103 mg/dL 74-106 [facility] Comment on above: Fasting Glucose resu lt from 100 to 125 mg/dL suggests IMPAIRED HOMEOSTASIS per A.D.A. criteria. Hematocrit Auto (Bld) [Volum e fraction]Ordered By: Emerson Miranda on 04-21-2024 Hematocrit (Bld) [Volume fraction] 39.8 % 37-47 [facility] Hemoglobin A1con 04-21-2024 HbA1c (Bld) [Mass fraction] 6.9 % High 3.8-5.6 [facility] Comment on above: Result Comment: Norm al < 5.7 % Prediabetic 5.7 - 6.4 % Diabetic >or= 6.5 % Please note range changes. Performed By: #### L 100.0100 #### [facility] [place], [address] Hemoglobin A1c percentageOrd ered By: Emerson Miranda on 04-21-2024 HbA1c (Bld) [Mass fraction] 6.9 % High 3.8-5.6 [facility] Comment on above: Normal < 5.7 % Predi abetic 5.7 - 6.4 % Diabetic >or= 6.5 % Please note range changes. Hemoglobin measurementOrdere d By: Emerson Miranda on 04-21-2024 Hemoglobin (Bld) [Mass/Vol] 12.7 g/dL 12.0-15.0 [facility] Immature granulocytes/100 WB C Auto (Bld)Ordered By: Emerson Miranda on 04-21-2024 Immature granulocytes/100 WBC (Bld) 0.400 % 0.0-0.9 [facility] Comment on above: IG% - Immature Granu locytes (promyelocytes, myelocytes and metamyelocytes) > 1% indicates that a LEFT SHIFT is Present. Lymphocytes Auto (Unsp spec) [#/Vol]Ordered By: Emerson Miranda on 04-21-2024 Lymphocytes (Bld) [#/Vol] 3.68 10*3/uL 0.83-4.51 [facility] Lymphocytes/100 WBC Auto (Un sp spec)Ordered By: Emerson Miranda on 04-21-2024 Lymphocytes/100 WBC (Bld) 33.2 % 19-41 [facility] MCV (mean corpuscular volume ) determinationOrdered By: Emerson Miranda on 04-21-2024 MCV (RBC) [Entitic vol] 89.6 fL 81-99 [facility] Mean corpuscular hemoglobin (MCH) determinationOrdered By: Emerson Miranda on 04-21-2024 MCH (RBC) [Entitic mass] 28.6 pg 27.0-32.0 [facility] Mean corpuscular hemoglobin concentration (MCHC) determinationOrdered By: Emerson Miranda on 04-21-2024 MCHC (RBC) [Mass/Vol] 31.9 g/dL Low 32-36 [facility] Mean platelet volume determi nationOrdered By: Emerson Miranda on 04-21-2024 Platelet mean volume (Bld) [Entitic vol] 9.6 fL 6.2-12.0 [facility] Monocyte percentageOrdered B y: Emerson Miranda on 04-21-2024 Monocytes/100 WBC (Bld) 6.7 % 0-10 [facility] Neutrophil percentageOrdered By: Emerson Miranda on 04-21-2024 Neutrophils/100 WBC (Bld) 56.4 % 47-70 [facility] Nucleated red blood cell per centageOrdered By: Emerson Miranda on 04-21-2024 Nucleated RBC/100 WBC (Bld) [Ratio] 0 % 0-5 [facility] Platelet countOrdered By: Samaria Miranda on 04-21-2024 Platelets (Bld) [#/Vol] 324 10*3/uL 150-450 [facility] Potassium measurementOrdered By: Emerson Miranda on 04-21-2024 Potassium [Moles/Vol] 3.5 mmol/L 3.5-5.1 [facility] RBC Auto (Bld) [#/Vol]Ordere d By: Emerson Miranda on 04-21-2024 RBC (Bld) [#/Vol] 4.44 10*6/uL 4.2-5.4 [facility] Serum anion gap measurementO rdered By: Emerson Miranda on 04-21-2024 Anion gap [Moles/Vol] 5 mmol/L 5-15 [facility] Serum or plasma albumin martin urement (mass/volume)Ordered By: Emerson Miranda on 04-21-2024 Albumin [Mass/Vol] 3.4 g/dL 3.2-5.0 [facility] Serum or plasma calcium martin urement (mass/volume)Ordered By: Emerson Miranda on 04-21-2024 Calcium [Mass/Vol] 9.2 mg/dL 8.5-10.1 [facility] Serum or plasma creatinine m easurement (mass/volume)Ordered By: Emerson Miranda on 04-21-2024 Creatinine [Mass/Vol] 1.13 mg/dL High 0.55-1.02 [facility] Comment on above: The validity of the calculated GFR & GFRAA in patients over 70 years has not been determined. Clinical correlation is essential. Serum or plasma urea nitroge n measurement (mass/volume)Ordered By: Emerson Miranda on 04-21-2024 Urea nitrogen [Mass/Vol] 23 mg/dL High -18 [facility] Sodium levelOrdered By: Alison Miranda on 04-21-2024 Sodium [Moles/Vol] 142 mmol/L 136-145 [facility] White blood cell (WBC) count Ordered By: Emerson Miranda on 04-21-2024 WBC (Bld) [#/Vol] 11.1 10*3/uL High 4.4-11.0 [facility] Extremity Lower without Cont raon 03-31-2024 Extremity Lower without Contra [facility] Imaging Services [address] [place] [address] Extremity Lower without Contra MR#: [id number] Acct: [id number] Name: FRANCHESKA CROSS Rep #: [id number] : 1955 F 68 From: Gordon Nicole MD PCP: Dr. Janey Camp MD Status: REG CLI Study: Extremity Lower without Contra Date of Exam: 05/31/23 Exam# [id number] Ordering Dr: Emerson Miranda MD [id number] EXAM: CT RIGHT LOWER EXTREMITY WITHOUT INTRAVENOUS [...] Janey Camp MD; Dr. Emerson Miranda MD Skidder Loader: Signed Normal [facility] CBC W/Diff, Automatedon 11-0 Absolute Lymph 3.61 X10 3/uL Normal 0.83-4.51 [facility] Comment on above: Performed By: #### L 500.4100, L501.9520, L100.0100, L500.4050, L501.0900, L501.9985 #### [facility] [address] [place], [place], [address] Absolute Neut 5.5 X10 3/uL Normal 2.0-7.7 [facility] Comment on above: Performed By: #### L 500.4100, L501.9520, L100.0100, L500.4050, L501.0900, L501.9985 #### [facility] [address] [place], [address] Basophils/100 WBC (Bld) 0.7 % Normal 0-1 [facility] Comment on above: Performed By: #### L 500.4100, L501.9520, L100.0100, L500.4050, L501.0900, L501.9985 #### [facility] [address] [place], [address] Eosinophils/100 WBC (Bld) 2.1 % Normal 0-5 [facility] Comment on above: Performed By: #### L 500.4100, L501.9520, L100.0100, L500.4050, L501.0900, L501.9985 #### [facility] [address] [place], [address] Erythrocyte distribution width (RBC) [Ratio] 13.5 % Normal 11.6-14.6 [facility] Comment on above: Performed By: #### L 500.4100, L501.9520, L100.0100, L500.4050, L501.0900, L501.9985 #### [facility] [address] [place], [address] Hematocrit (Bld) [Volume fraction] 39.7 % Normal 37-47 [facility] Comment on above: Performed By: #### L 500.4100, L501.9520, L100.0100, L500.4050, L501.0900, L501.9985 #### [facility] [address] [place], [address] Hemoglobin (Bld) [Mass/Vol] 13.1 g/dL Normal 12.0-15.0 [facility] Comment on above: Performed By: #### L 500.4100, L501.9520, L100.0100, L500.4050, L501.0900, L501.9985 #### [facility] [address] [place], [address] IG% 0.400 Normal 0.0-0.9 [facility] Comment on above: Result Comment: IG% - Immature Granulocytes (promyelocytes, myelocytes and metamyelocytes) > 1% indicates that a LEFT SHIFT is Present. Performed By: #### L 500.4100, L501.9520, L100.0100, L500.4050, L501.0900, L501.9985 #### [facility] [address] [place], [address] Lymphocytes/100 WBC (Bld) 36.4 % Normal 19-41 [facility] Comment on above: Performed By: #### L 500.4100, L501.9520, L100.0100, L500.4050, L501.0900, L501.9985 #### [facility] [address] [place], [address] MCH (RBC) [Entitic mass] 29.3 pg Normal 27.0-32.0 [facility] Comment on above: Performed By: #### L 500.4100, L501.9520, L100.0100, L500.4050, L501.0900, L501.9985 #### [facility] [address] [place], [address] MCHC (RBC) [Mass/Vol] 33.0 g/dL Normal 32-36 [facility] Comment on above: Performed By: #### L 500.4100, L501.9520, L100.0100, L500.4050, L501.0900, L501.9985 #### [facility] [address] [place], [address] MCV (RBC) [Entitic vol] 88.8 fL Normal 81-99 [facility] Comment on above: Performed By: #### L 500.4100, L501.9520, L100.0100, L500.4050, L501.0900, L501.9985 #### [facility] [address] [place], [address] Monocytes/100 WBC (Bld) 5.4 % Normal 0-10 [facility] Comment on above: Performed By: #### L 500.4100, L501.9520, L100.0100, L500.4050, L501.0900, L501.9985 #### [facility] [address] [place], [address] Neutrophils/100 WBC (Bld) 55.0 % Normal 47-70 [facility] Comment on above: Performed By: #### L 500.4100, L501.9520, L100.0100, L500.4050, L501.0900, L501.9985 #### [facility] [address] [place], [address] Nucleated RBC (Bld) [#/Vol] 0 10*3/uL Normal 0-5 [facility] Comment on above: Performed By: #### L 500.4100, L501.9520, L100.0100, L500.4050, L501.0900, L501.9985 #### [facility] [address] [place], [address] Platelet mean volume (Bld) [Entitic vol] 9.7 fL Normal 6.2-12.0 [facility] Comment on above: Performed By: #### L 500.4100, L501.9520, L100.0100, L500.4050, L501.0900, L501.9985 #### [facility] [address] [place], [address] Platelets (Bld) [#/Vol] 374 10*3/uL Normal 150-450 [facility] Comment on above: Performed By: #### L 500.4100, L501.9520, L100.0100, L500.4050, L501.0900, L501.9985 #### [facility] [address] [place], [address] RBC (Bld) [#/Vol] 4.47 10*6/uL Normal 4.2-5.4 [facility] Comment on above: Performed By: #### L 500.4100, L501.9520, L100.0100, L500.4050, L501.0900, L501.9985 #### [facility] [address] [place], [address] RDW SD 43.8 fl Normal 35.1-43.9 [facility] Comment on above: Performed By: #### L 500.4100, L501.9520, L100.0100, L500.4050, L501.0900, L501.9985 #### [facility] [address] [place], [address] WBC (Bld) [#/Vol] 9.9 10*3/uL Normal 4.4-11.0 [facility] Comment on above: Performed By: #### L 500.4100, L501.9520, L100.0100, L500.4050, L501.0900, L501.9985 #### [facility] [address] [place], [address] Comprehensive Metabolic [facility] 03-13-2024 Albumin [Mass/Vol] 3.6 g/dL Normal 3.2-5.0 [facility] Comment on above: Performed By: #### L 500.4100, L501.9520, L100.0100, L500.4050, L501.0900, L501.9985 #### [facility] [address] [place], [address] Albumin/Globulin [Mass ratio] 1.1 {ratio} Normal 0.9-2.4 [facility] Comment on above: Performed By: #### L 500.4100, L501.9520, L100.0100, L500.4050, L501.0900, L501.9985 #### [facility] [address] [place], [address] ALK P 44 U/L Low 45-117 [facility] Comment on above: Performed By: #### L 500.4100, L501.9520, L100.0100, L500.4050, L501.0900, L501.9985 #### [facility] [address] [place], [address] ALT [Catalytic activity/Vol] 15 U/L Normal 13-56 [facility] Comment on above: Performed By: #### L 500.4100, L501.9520, L100.0100, L500.4050, L501.0900, L501.9985 #### [facility] [address] [place], [address] AST [Catalytic activity/Vol] 9 U/L Low 15-37 [facility] Comment on above: Performed By: #### L 500.4100, L501.9520, L100.0100, L500.4050, L501.0900, L501.9985 #### [facility] [address] [place], [address] Bilirubin [Mass/Vol] 0.60 mg/dL Normal 0.20-1.00 [facility] Comment on above: Result Comment: For patients on eltrombopag therapy, use of Dimension [place] TBIL is not recommended. Performed By: #### L 500.4100, L501.9520, L100.0100, L500.4050, L501.0900, L501.9985 #### [facility] [address] [place], [address] BUN/CRE 21.4 RATIO High 10-20 [facility] Comment on above: Performed By: #### L 500.4100, L501.9520, L100.0100, L500.4050, L501.0900, L501.9985 #### [facility] [facility] [address] [place], [address] CA,Total 9.1 mg/dL Normal 8.5-10.1 [facility] Comment on above: Performed By: #### L 500.4100, L501.9520, L100.0100, L500.4050, L501.0900, L501.9985 #### [facility] [address] [place], [address] Chloride [Moles/Vol] 108 mmol/L High 98-107 [facility] Comment on above: Performed By: #### L 500.4100, L501.9520, L100.0100, L500.4050, L501.0900, L501.9985 #### [facility] [address] [place], [address] CO2 [Moles/Vol] 27.0 mmol/L Normal 21.0-32.0 [facility] Comment on above: Performed By: #### L 500.4100, L501.9520, L100.0100, L500.4050, L501.0900, L501.9985 #### [facility] [address] [place], [address] Creatinine [Mass/Vol] 0.98 mg/dL Normal 0.55-1.02 [facility] Comment on above: Result Comment: The validity of the calculated GFR GFRAA in patients over 70 years has not been determined. Clinical correlation is essential. Performed By: #### L 500.4100, L501.9520, L100.0100, L500.4050, L501.0900, L501.9985 #### [facility] [address] [place], [address] EST GFR - AA 72 mL/min Normal >60 [facility] Comment on above: Result Comment: Afri can Serbian GFR Calc Performed By: #### L 500.4100, L501.9520, L100.0100, L500.4050, L501.0900, L501.9985 #### [facility] [address] [place], [address] GAP 5 Normal 5-15 [facility] Comment on above: Performed By: #### L 500.4100, L501.9520, L100.0100, L500.4050, L501.0900, L501.9985 #### [facility] [address] [place], [address] GFR/1.73 sq M.predicted among non-blacks MDRD (S/P/Bld) [Vol rate/Area] 60 mL/min/{1.73_m2} Normal >60 [facility] Comment on above: Result Comment: Non- GFR Calc Performed By: #### L 500.4100, L501.9520, L100.0100, L500.4050, L501.0900, L501.9985 #### [facility] [address] [place], [address] Globulin (S) [Mass/Vol] 3.3 g/dL Normal 2.2-4.2 [facility] Comment on above: Performed By: #### L 500.4100, L501.9520, L100.0100, L500.4050, L501.0900, L501.9985 #### [facility] [address] [place], [address] Glucose [Mass/Vol] 103 mg/dL Normal 74-106 [facility] Comment on above: Result Comment: Fast ing Glucose result from 100 to 125 mg/dL suggests IMPAIRED HOMEOSTASIS per A.D.A. criteria. Performed By: #### L 500.4100, L501.9520, L100.0100, L500.4050, L501.0900, L501.9985 #### [facility] [address] [place], [address] Potassium [Moles/Vol] 3.7 mmol/L Normal 3.5-5.1 [facility] Comment on above: Performed By: #### L 500.4100, L501.9520, L100.0100, L500.4050, L501.0900, L501.9985 #### [facility] [address] [place], [address] Sodium [Moles/Vol] 141 mmol/L Normal 136-145 [facility] Comment on above: Performed By: #### L 500.4100, L501.9520, L100.0100, L500.4050, L501.0900, L501.9985 #### [facility] [address] [place], [address] T PROT 6.9 g/dL Normal 6.4-8.2 [facility] Comment on above: Performed By: #### L 500.4100, L501.9520, L100.0100, L500.4050, L501.0900, L501.9985 #### [facility] [address] [place], [address] Urea nitrogen [Mass/Vol] 21 mg/dL High 7-18 [facility] Comment on above: Performed By: #### L 500.4100, L501.9520, L100.0100, L500.4050, L501.0900, L501.9985 #### [facility] [address] [place], [address] Hemoglobin A1con 03-13-2024 HbA1c (Bld) [Mass fraction] 6.9 % High 3.8-5.6 [facility] Comment on above: Result Comment: Norm al < 5.7 % Prediabetic 5.7 - 6.4 % Diabetic >or= 6.5 % Please note range changes. Performed By: #### L 501.080 #### [facility] [address] [place], [address] Lipid Profileon 03-13-2024 Cholesterol [Mass/Vol] 145 mg/dL Normal 200 [facility] Comment on above: Result Comment: <200 mg/dL Desirable 200-240 mg/dL Borderline >240 mg/dL High Risk Performed By: #### L 500.4100, L501.9520, L100.0100, L500.4050, L501.0900, L501.9985 #### [facility] [address] [place], [address] Cholesterol in HDL [Mass/Vol] 31 mg/dL Low [facility] Comment on above: Result Comment: The drugs N-Acetylcysteine and Metamizole may falsely depress this assay. Reference Range HDL <40 mg/dL Low HDL Cholesterol HDL >or= 60 mg/dL High HDL Cholesterol Performed By: #### L 500.4100, L501.9520, L100.0100, L500.4050, L501.0900, L501.9985 #### [facility] [address] [place], [address] Cholesterol in LDL [Mass/Vol] 91 mg/dL Normal 0-130 [facility] Comment on above: Performed By: #### L 500.4100, L501.9520, L100.0100, L500.4050, L501.0900, L501.9985 #### [facility] [address] [place], [address] Cholesterol in VLDL [Mass/Vol] 23 mg/dL Normal 5-40 [facility] Comment on above: Performed By: #### L 500.4100, L501.9520, L100.0100, L500.4050, L501.0900, L501.9985 #### [facility] [address] [place], [address] Triglyceride [Mass/Vol] 113 mg/dL Normal [facility] Comment on above: Result Comment: The drugs N-Acetylcysteine and Metamizole may falsely depress this assay. Serum Triglycerides Reference Interval Normal <150 mg/dL Borderline high 150 - 199 mg/dL High 200 - 499 mg/dL Very High > or = 500 mg/dL Performed By: #### L 500.4100, L501.9520, L100.0100, L500.4050, L501.0900, L501.9985 #### [facility] [address] [place], [address] Protein+Creatinine Ratio,Uri neon 03-13-2024 PROT:CRE RATIO 67 mg/g CRE Normal 0-200 [facility] Comment on above: Performed By: #### L 501.080 #### [facility] [address] [place], [address] Protein (U) [Mass/Vol] 6.2 mg/dL Normal <11.9 [facility] Comment on above: Performed By: #### L 501.080 #### [facility] [address] [place], [address] UR CREAT 92.60 mg/dL Normal NO RANGE EST. [facility] Comment on above: Performed By: #### L 501.080 #### [facility] [address] [place], [address] Thyroid Stim Hormone (TSH)on 03-13-2024 TSH 2.240 uIU/mL Normal 0.358-3.740 [facility] Comment on above: Performed By: #### L 501.080 #### [facility] [address] [place], [address] Basophil percentageon 2021 Chloride [Moles/Vol] 107 mmol/L 98-107 [facility] Work Phone: Cholesterol [Mass/Vol] 205 mg/dL <200 [facility] Work Phone: Comment on above: <200 mg/dL Desirable 200-240 mg/dL Borderline >240 mg/dL High Risk Glucose [Mass/Vol] 147 mg/dL 74-106 [facility] Work Phone: Comment on above: Fasting Glucose resu lt greater than or equal to 126 mg/dL suggests DIABETES MELLITUS per A.D.A. criteria. Potassium [Moles/Vol] 3.7 mmol/L 3.5-5.1 [facility] Work Phone: Sodium [Moles/Vol] 142 mmol/L 136-145 [facility] Work Phone: Triglyceride [Mass/Vol] 206 mg/dL <199 [facility] Work Phone: Comment on above: The drugs N-Acetylcy steine and Metamizole may falsely depress this assay.Serum Triglycerides Reference Interval Normal <150 mg/dL Borderline high 150 - 199 mg/dL High 200 - 499 mg/dL Very High > or = 500 mg/dL Laboratory - Chemistry and C hemistry - challengeon 10-23-2021 CO2 [Moles/Vol] 29.0 mmol/L 21.0-32.0 [facility] Work Phone: Urea nitrogen/Creatinine [Mass ratio] 14.8 mg/mg - [facility] Work Phone: [phone] No Panel Informationon 10-23 Estimated GFR (MDRD) Amer 65 mL/min >60 [facility] Work Phone: Comment on above: GFR Calc Estimated GFR (MDRD) Non-Af Amer 54 mL/min >60 [facility] Work Phone: Comment on above: Non- GFR Calc Serum or plasma calcium martin urement (mass/volume)on 10-23-2021 Calcium [Mass/Vol] 9.3 mg/dL 8.5-10.1 [facility] Work Phone: Serum or plasma cholesterol in HDL measurement (mass/volume)on 10-23-2021 Cholesterol in HDL [Mass/Vol] 44 mg/dL >40 [facility] Work Phone: Comment on above: The drugs N-Acetylcy steine and Metamizole may falsely depress this assay. Reference Range HDL <40 mg/dL Low HDL Cholesterol HDL >or= 60 mg/dL High HDL Cholesterol Serum or plasma cholesterol in VLDL measurement (mass/volume)on 10-23-2021 Cholesterol in VLDL [Mass/Vol] 41 mg/dL 5-40 [facility] Work Phone: Serum or plasma creatinine m easurement (mass/volume)on 10-23-2021 Creatinine [Mass/Vol] 1.08 mg/dL 0.55-1.02 [facility] Work Phone: Comment on above: The validity of the calculated GFR & GFRAA in patients over 70 years has not been determined. Clinical correlation is essential. Serum or plasma low density lipoprotein (LDL) cholesterol measurement (mass/volume)on 10-23-2021 Cholesterol in LDL [Mass/Vol] 120 mg/dL 0-130 [facility] Work Phone: Serum or plasma urea nitroge n measurement (mass/volume)on 10-23-2021 Urea nitrogen [Mass/Vol] 16 mg/dL 7-18 [facility] Work Phone: Thin prep Papanicolaou smear with manual screeningon 10-23-2021 Thin prep Papanicolaou smear with manual screening 6 5-15 [facility] Work Phone: Vital Signs Date Time Vital Sign Value Performing Clinician Faci lity 11-09-2024 10:19-0400 Body height 167.[address] Janey Camp MD Work Phone: [facility] 11-09-2024 10:170400 Body mass index (BMI) [Ratio] 32.5 kg/m2 Dr. Janey Camp MD Work Phone: [facility] 11-09-2024 10:17-0400 Body weight 91.[address] Janey Camp MD Work Phone: [facility] 11-09-2024 10:17-0400 Diastolic blood pressure 91 mm[Hg] Dr. Janey Camp MD Work Phone: [facility] 11-09-2024 10:17-0400 Systolic blood pressure 145 mm[Hg] Dr. Janey Camp MD Work Phone: [facility] 10-13-2024 10:44-0400 Body height 167.[address] Janey Camp MD Work Phone: 9(098)390-373086 [place] [address] 10-13-2024 10:36-0400 Body mass index (BMI) [Ratio] 31.9 kg/m2 Dr. Janey Camp MD Work Phone: 2(801)490-612986 [place] [address] 10-13-2024 10:36-0400 Body weight 89.[address] Janey Camp MD Work Phone: 8(375)447-205086 [place] [address] 10-13-2024 10:36-0400 Diastolic blood pressure 80 mm[Hg] Dr. Janey Camp MD Work Phone: 7(744)003-023886 [place] [address] 10-13-2024 10:36-0400 Systolic blood pressure 127 mm[Hg] Dr. Janey Camp MD Work Phone: [facility] 09-30-2024 08:18-0400 Body temperature 98.1 [degF] Dr. Janey Camp MD Work Phone: [facility] 09-30-2024 08:18-0400 Diastolic blood pressure 82 mm[Hg] Dr. Janey Camp MD Work Phone: [facility] 09-30-2024 08:18-0400 Heart rate 74 /min Dr. Janey Camp MD Work Phone: [facility] 09-30-2024 08:18-0400 Respiratory rate 17 /min Dr. Janey Camp MD Work Phone: [facility] 09-30-2024 08:18-0400 SaO2% (BldA) [Mass fraction] 95 % Dr. Janey Camp MD Work Phone: [facility] 09-30-2024 08:18-0400 Systolic blood pressure 121 mm[Hg] Dr. Janey Camp MD Work Phone: [facility] 09-30-2024 05:20-0400 Inhaled oxygen flow rate 2 L/min Dr. Janey Camp MD Work Phone: [facility] 09-29-2024 20:41-0400 Body temperature 98 [degF] Dr. Janey Camp MD Work Phone: 8(907)381-247005 [address] 09-29-2024 20:41-0400 Diastolic blood pressure 69 mm[Hg] Dr. Janey Camp MD Work Phone: 2(869)142-374486 [place] [address] 09-29-2024 20:41-0400 Heart rate 80 /min Dr. Janey Camp MD Work Phone: 7(277)873-133505 [address] 09-29-2024 20:41-0400 Respiratory rate 16 /min Dr. Janey Camp MD Work Phone: 5(502)185-290286 [place] [address] 09-29-2024 20:41-0400 SaO2% (BldA) [Mass fraction] 96 % Dr. Janey Camp MD Work Phone: 3(105)086-259005 [address] 09-29-2024 20:41-0400 Systolic blood pressure 130 mm[Hg] Dr. Janey Camp MD Work Phone: [facility] 09-29-2024 19:45-0400 Inhaled oxygen flow rate 2 L/min Dr. Janey Camp MD Work Phone: [facility] 09-29-2024 15:49-0400 Body height 167.[address] Janey Camp MD Work Phone: 9(919)537-420905 [address] 09-29-2024 15:49-0400 Body mass index (BMI) [Ratio] 32.4 kg/m2 Dr. Janey Camp MD Work Phone: [facility] 09-29-2024 15:49-0400 Body weight 91.[address] Janey Camp MD Work Phone: 2(767)328-448486 [place] [address] 09-23-2024 09:38-0400 Body height 167.[address] Janey Camp MD Work Phone: [facility] 09-23-2024 09:37-0400 Body mass index (BMI) [Ratio] 32 kg/m2 Dr. Janey Camp MD Work Phone: [facility] 09-23-2024 09:37-0400 Body weight 89.[address] Janey Camp MD Work Phone: 1(850)451-278305 [address] 09-23-2024 09:37-0400 Diastolic blood pressure 75 mm[Hg] Dr. Janey Camp MD Work Phone: 8(968)703-277575 [place] [address] 09-23-2024 09:37-0400 Systolic blood pressure 113 mm[Hg] Dr. Janey Camp MD Work Phone: 2(697)331-437875 [place] [address] 08-14-2024 13:54-0400 Body mass index (BMI) [Ratio] 31.6 kg/m2 Dr. Janey Camp MD Work Phone: 9(273)817-626505 [address] 08-14-2024 13:54-0400 Body weight 88.[address] Janey Camp MD Work Phone: 5(318)073-790786 [place] [address] 08-14-2024 13:54-0400 Diastolic blood pressure 70 mm[Hg] Dr. Janey Camp MD Work Phone: 8(452)194-904886 [place] [address] 08-14-2024 13:54-0400 Systolic blood pressure 116 mm[Hg] Dr. Janey Camp MD Work Phone: 3(532)590-300986 [place] [address] 07-22-2024 10:23-0400 Body height 167.[address] Janey Camp MD Work Phone: 9(536)843-345705 [address] 07-22-2024 10:23-0400 Body mass index (BMI) [Ratio] 31.8 kg/m2 Dr. Janey Camp MD Work Phone: 0(159)272-470086 [place] [address] 07-22-2024 10:23-0400 Body weight 89.[address] Janey Camp MD Work Phone: [facility] 07-22-2024 10:23-0400 Diastolic blood pressure 84 mm[Hg] Dr. Janey Camp MD Work Phone: [facility] 07-22-2024 10:23-0400 Systolic blood pressure 133 mm[Hg] Dr. Janey Camp MD Work Phone: [facility] Encounters Encounter Date Encounter Type Care Provider Facility Start: 03-17-2025 ambulatory [facility] Facility: [facility] Start: 11-27-2024 End: 11-27-[address] Janey Camp MD Work Phone: -[facility] Start: 11-27-2024 End: 11-27-[address] Allyson Hercules DO -[facility] Work Phone: Start: 11-27-2024 End: 11-27-2024 ambulatory Allyson Hercules Facility:[facility] Start: 11-09-2024 End: 11-09-[address] Allyson Hercules DO -[facility] Work Phone: Start: 11-09-2024 End: 11-09-[address] Janey Camp MD Work Phone: -[facility] Start: 10-16-2024 Encounter for other preprocedural examination Allyson Hercules [facility] Start: 10-13-2024 End: 10-13-2024 Patient encounter procedure Yen Felder [employer] -[facility] Work Phone: Start: 10-13-2024 End: 10-13-[address] Janey Camp MD Work Phone: [facility] Work Phone: Start: 09-30-2024 Non-patient / Non-visit Dr. Maged Hercules DO -[facility] Start: 09-29-2024 ambulatory Allyson Hercules Fa cility:[facility] Start: 09-29-2024 End: 09-30-2024 Evaluation and management of inpatient Dr. Allyson Hercules DO -[facility] Work Phone: Start: 09-29-2024 End: 09-30-[address] Janey Camp MD Work Phone: [facility] Work Phone: Start: 09-29-2024 ambulatory Alylson Hercules Fa cility:[facility] Start: 09-29-2024 Non-patient / Non-visit Dr. Maged Hercules DO -[facility] Start: 09-29-2024 End: 09-30-2024 Admission to same day surgery center Dr. Allyson Hercules DO -[facility] Start: 09-29-2024 End: 09-30-[address] Janey Camp MD Work Phone: [facility] Work Phone: Start: 09-23-2024 End: 09-23-2024 ambulatory Allyson Hercules Facility:[facility] Start: 09-23-2024 End: 09-23-2024 Non-patient / Non-visit Dr. Maurice Mac MD -[facility] Work Phone: Start: 09-23-2024 End: 09-23-[address] Allyson Hercules DO -[facility] Work Phone: Start: 09-23-2024 End: 09-23-[address] Janey Camp MD Work Phone: [facility] Work Phone: Start: 09-23-2024 End: 09-23-[address] Janey Camp MD Work Phone: [facility] Work Phone: Start: 09-23-2024 End: 09-23-[address] Allyson Hercules DO -[facility] Work Phone: Start: 09-23-2024 End: 09-23-2024 ambulatory Allyson Hercules Facility:[facility] Start: 08-14-2024 End: 08-14-[address] Allyson Hercules DO -[facility] Work Phone: Start: 08-14-2024 End: 08-14-2024 ambulatory Janey Camp Facility:[facility] Start: 08-05-2024 End: 08-05-[address] Janey Camp MD Work Phone: [facility] Work Phone: Start: 08-05-2024 End: 08-05-[address] Selina Beal MD -Lab, [facility] Start: 08-05-2024 End: 08-05-2024 ambulatory Selina Beal Facility:[facility] Start: 07-27-2024 End: 07-27-[address] Janey Camp MD Work Phone: [facility] Work Phone: Start: 07-27-2024 End: 07-27-[address] Selina Beal MD -Ultrasound, [facility] Work Phone: Start: 07-27-2024 End: 07-27-2024 ambulatory Selina Beal Facility:[facility] Start: 07-22-2024 End: 07-22-[address] Janey Camp MD Work Phone: [facility] Work Phone: Start: 07-22-2024 End: 07-22-[address] Selina Beal MD -Laboratory, Specimen Work Phone: Start: 07-22-2024 End: 07-22-[address] Selina Beal MD -[facility] Work Phone: Start: 07-22-2024 End: 07-22-2024 ambulatory Janey S Jolliff Facility:[facility] Start: 07-22-2024 End: 07-22-2024 ambulatory Selina Beal Facility:[facility] Start: 06-03-2024 Encounter for preprocedural cardiovascular examination [facility] Start: 05-22-2024 Encounter for preprocedural respiratory examination Emerson Miranda [facility] Start: 05-18-2024 End: 05-18-[address] Emerson Miranda MD -Laboratory, Specimen Work Phone: Start: 05-18-2024 End: 05-18-2024 ambulatory Emerson [place] Facility:[facility] Start: 05-12-2024 End: 05-12-2024 ambulatory Marcelo Carrillo Facility:[facility] Start: 05-12-2024 End: 05-12-2024 Non-patient / Non-visit Dr. Marcelo Vizcaino MD -[facility] Work Phone: Start: 05-12-2024 End: 05-12-[address] Emerson Miranda MD -Pulmonary Services/Neurology Work Phone: Start: 05-12-2024 End: 05-12-2024 ambulatory Emerson Miranda Facility:[facility] Start: 04-21-2024 End: 04-21-[address] Emerson Miranda MD -Laboratory Work Phone: Start: 04-21-2024 End: 04-21-2024 ambulatory Emerson [place] Facility:[facility] Start: 04-08-2024 Encounter for other preprocedural examination Janey S Jolliff [facility] Start: 03-31-2024 End: 03-31-[address] Emerson Miranda MD -Cat Scan, [facility] Work Phone: Start: 03-31-2024 End: 03-31-2024 ambulatory Emerson [place] Facility:[facility] Start: 03-13-2024 End: 03-13-2024 ambulatory Janey S Violetlliff Facility:[facility] Start: 07-22-2023 End: 07-22-2023 ambulatory [facility] Work Phone: Start: 07-22-2023 End: 07-22-2023 Patient encounter [facility] Start: 10-23-2021 End: 10-23-2021 Patient encounter procedure [facility] Date Procedure Procedure Detail Performing Clinician Start: 11-27-2024 Screening mammography Alina Camp MD Work Phone: Start: 09-30-[address] Janey [...] post hyst erectomy with oophorectomy Yen Felder [employer] H/O: surgery Status post hyst erectomy with oophorectomy Dr. Allyson Hercules DO History of appendectomy S/P appendectomy History of cholecystectomy S/P cholecystectomy Plan of Treatment Date Care Activity Detail Author Start: 09-30-2024 Introduction of urinary catheter [facility] Start: 09-30-2024 Patient discharge [facility] Start: 09-30-2024 Complete blood count [facility] Start: 09-29-2024 Ambulation therapy management [facility] Start: 09-29-2024 Application of intermittent pneumatic compression device [facility] Start: 09-29-2024 Elevation of head of bed [facility] Start: 09-29-2024 End: 09-29-2024 Following clinical pathway protocol [facility] Start: 09-29-2024 Incentive spirometry [facility] Start: 09-29-2024 Measuring intake and output [facility] Start: 09-29-2024 Notification of physician [facility] Start: 09-29-2024 Oxygen therapy [facility] Start: 09-29-2024 Procedures relating to eating and drinking [facility] Start: 09-29-2024 Taking patient vital signs [facility] Start: 09-29-2024 Wound care [facility] Start: 09-29-2024 [facility] Start: 09-29-2024 Introduction of urinary catheter [facility] Start: 09-29-2024 Anesthesia intraperitoneal lower abd w/laps nos ANESTH SURG LOWER ABDOMEN [facility] Start: 09-29-2024 Laps total hysterect 250 gm/< w/rmvl tube/ovary TLH W/T/O 250 G OR LESS [facility] Start: 09-29-2024 Admission procedure [facility] Start: 09-29-2024 Patient referral to dietitian [facility] Start: 09-23-2024 CBC W Auto Differential panel - Blood [facility] Start: 09-23-2024 MRI of pelvis with contrast Pelvis W/WO Contrast [facility] Start: 07-27-2024 Transvaginal echography Transvaginal Non- [facility] Start: 07-27-2024 US Pelvis transvaginal [facility] Alanine aminotransfe rase [Enzymatic activity/volume] in Serum or Plasma [facility] Albumin [Mass/volume ] in Serum or Plasma [facility] Alkaline phosphatase [Enzymatic activity/volume] in Serum or Plasma [facility] Anion gap in Serum or Plasma [facility] Bilirubin, total measurement [facility] BUN/Creatinine ratio [facility] Calcium [Mass/volume ] in Serum or Plasma [facility] Carbon dioxide, tota l [Moles/volume] in Central venous blood [facility] Creatinine [Mass/vol ume] in Serum or Plasma [facility] Electrocardiographic procedure [facility] Erythrocyte mean cor puscular volume determination [facility] Glucose [Mass/volume ] in Serum or Plasma [facility] Hematocrit [Volume F raction] of Blood [facility] Hemoglobin [Mass/vol ume] in Blood [facility] Leukocytes [#/volume] in Blood [facility] Mean corpuscular hem oglobin concentration determination [facility] Mean corpuscular hem oglobin determination [facility] Measurement of renal function [facility] MG Breast - bilatera l Screening [facility] Patient referral [facility] Work Phone: Platelets [#/volume] in Blood [facility] Potassium measurement [facility] Red blood cell count [facility] Red cell distributio n width determination [facility] Serum chloride measurement [facility] Sodium measurement [facility] Total protein measurement [facility] Urea nitrogen [Mass/ volume] in Serum or Plasma [facility] Payers Date Payer Category Payer Medicare [id number] 2024 Self-pay [id number] 2024 Unknown [id number] Unknown [facility] PLAN [id number] Unknown [id number] 2.16.8 40.1.366955.3.579.2.462 Unknown [id number] 2.16.8 40.1.442492.3.579.2.462 Unknown [id number] 2.16.8 40.1.340663.3.579.2.462 Unknown [id number] 2.16.8 40.1.965240.3.579.2.462 Unknown [id number] 2.16.8 40.1.977931.3.579.2.462 Unknown [id number] 2.16.8 40.1.916546.3.579.2.462 Unknown [id number] 2.16.8 40.1.855702.3.579.2.462 Unknown [id number] 2.16.8 40.1.601861.3.579.2.462 Unknown [id number] 2.16.8 40.1.804932.3.579.2.462 Unknown [id number] 2.16.8 40.1.846798.3.579.2.462 Unknown [id number] 2.16.8 40.1.479954.3.579.2.462 Unknown [id number] 2.16.8 40.1.549627.3.579.2.462 Unknown [id number] 2.16.8 40.1.880981.3.579.2.462 Unknown [id number] 2.16.8 40.1.920714.3.579.2.462 Unknown [id number] 2.16.8 40.1.458832.3.579.2.462 Unknown [id number] 2.16.8 40.1.471222.3.579.2.462 Unknown [id number] 2.16.8 40.1.844040.3.579.2.462 Unknown [id number] 2.16.8 40.1.771559.3.579.2.462 Unknown [id number] 2.16.8 40.1.020037.3.579.2.462 Unknown [id number] 2.16.8 40.1.984024.3.579.2.462 Unknown [id number] 2.16.8 40.1.288463.3.579.2.462 Social History Date Type Detail Facility Start: 06-13-2017 Tobacco smoking status NHIS Unknown if ever smoked [facility] Start: 1955 Sex Assigned At Female [facility] Start: 01-24-2024 End: 09-15-2024 Tobacco smoking status NHIS Never smoked tobacco (finding) [facility] Start: 07-29-2024 End: 08-08-2024 Sex Female (finding) [facility] Not [facility] NEGATED: Highlighted row Not [facility] Medical Equipment Procedure Code Equipment Code Equipment Origin al Text Equipment Identifier Dates Robot-assisted total abdominal hysterectomy with bilateral salpingo-oophorectom y (SAMSON Collagen haemostatic agent, non-antimicrobial ()[id number] FDA Start: 09-29-2024 Robot-assisted total abdominal hysterectomy with bilateral salpingo-oophorectom y (SAMSON Plant polysaccharide haemostatic agent, bioabsorbable ()[id number] FDA Start: 09-29-2024 MESH,VENTLEX ST MED [...] Facility 09-30-2024 Functional status Patient Activity Chair [facility] Work Phone: 09-30-2024 Functional status Activity Abili ty Independent;Standby Assist [facility] Work Phone: 09-29-2024 Functional status Activity Ability Post O p [facility] Work Phone: Mental Status Date Assessment Result Facility 09-30-2024 Cognitive function Level Of Cons ciousness Awake;Alert;Appropriate;Follow s Commands [facility] Work Phone: 09-29-2024 Cognitive function Awake;Alert;A ppropriate;Follow s Commands [facility] Work Phone: 09-29-2024 Cognitive function Appropriate;Cooperativ e [facility] Work Phone: 09-29-2024 Cognitive function Arousable To Voice/Nam e [facility] Work Phone: Clinical Notes 07-22-2024 to 10-13-2024 Note Date & Type Note Facility 10-13-2024 Progress note [facility] 09-30-2024 Consult note [facility] 09-30-2024 Consult note [facility] 09-30-2024 Progress note Note Date/Time September 30, 2024 8:18am [facility] Medical Records Department [address] [place] [address] Progress Note - OBGYN 09/30/24 0815 MR#: [id number] Acct: [id number] Name: FRANCHESKA CROSS SERGE Rep #:[id number] : 1955 69 From: Allyson Hercules DO PCP: Dr. Janey Camp MD Status:ADM MIRANDA Location: MS3 XH677-5 Subjective Subjective patient is up to bedside [...] prophylaxis, patient stable for discharge to home. 09/30/24817 <Electronically signed by Allyson Hercules DO> Cosigner Signature (if applicable): CC: ~ Signed [facility] Work Phone: 1(133) 919-743205-28-2025 Progress note Author Allyson Deleon [facility] Note Date/Time September 30, 2024 8:18a m [facility] Medical Records Department [address] [place] [address] Progress Note - OBGYN 09/30/24814 MR#: [id number] Acct: [id number] Name: FRANCHESKA CROSS Rep #:[id number] : 1955 69 From: Allyson Hercules DO PCP: Dr. Janey Camp MD Status:ADM MIRANDA Location: MS3 JU692-6 Subjective Subjective patient is up to bedside [...] prophylaxis, patient stable for discharge to home. 09/30/24817 <Electronically signed by Allyson Hercules DO> Cosigner Signature (if applicable): CC: ~ Signed [facility] Work Phone: 1(407) 687-323305-28-2025 Progress note [facility] Medical Records Department [address] [place] [address] Progress Note - OBGYN 09/30/24814 MR#: [id number] Acct: [id number] Name: FRANCHESKA CROSS Rep #:[id number] : 1955 69 From: Allyson Hercules DO PCP: Dr. Janey Camp MD Status:ADM MIRANDA Location: MS3 YY066-5 Subjective Subjective patient is up to bedside [...] prophylaxis, patient stable for discharge to home. 09/30/2418 Cosigner Signature (if applicable): CC: ~ Signed [facility]05-27-2025 Consult note Author Marcelo Vick [facility] Note Date/Time September 30, 2024 10:19 am [facility] Medical Records Department [address] [place] [address] Anesthesia Postop Eval II 09/29/24 1339 MR#: [id number] Acct: [id number] Name: FRANCHESKA CROSS Rep #:[id number] : 1955 69 From: Marcelo Vick CRNA PCP: Dr. Janey Camp MD Status:REG SDC Y Race: C Location: [place] [address]-1 Anesthesia Postop Eval I Sum Postop Eval Completion status Anesthesia document: Postop Eval 1 completed: Yes Anesthesia Postop Eval I Summary Anesthesia Postop Eval I Summary: Anesthesia Postop Eval I: Assessment Summary Airway patent Yes 09/29/24 13:38 [employer]M Spontaneous unlabored Yes 09/29/24 13:38 [employer]M respirations Mental status Awake,Calm 09/29/24 13:38 [employer].MEDM nausea No 09/29/24 13:38 [employer].MEDM Vomiting No 09/29/24 13:38 [employer].MEDM Anesthesia Postop Eval I: Fluid Summary Crystalloid volume administer 1,300 09/29/24 13:38 [employer].MEDM (ml) Colloids volume administered ( ml) Blood Product volume administered (ml) Total IV fluid infused 1,300 09/29/24 13:38 [employer].MEDM Anesthesia Postop Eval I: Summary Notes Anesthesia Complication No 09/29/24 13:38 [employer].MEDM Anesthesia Complication Comment: Post-operative progress note patient tolerated 09/29/24 13:38 [employer].MEDM well Anesthesia: Postop Eval II Evaluation Mental status: Awake and Calm Pain Level: 2 nausea: No Vomiting: No Complications Anesthesia Complication: No 09/29/24 1339 <Electronically signed by Marcelo cr CRNA> Date _ Marcelo Vick CRNA Cosigner Signature: Date CC: ~ Signed [facility] Work Phone: 1(660) 995-460605-27-2025 Consult note Author Marcelo Vick [facility] Note Date/Time September 29, 2024 1:38p [facility] Medical Records Department [address] [place] [address] [place] [address] Anesthesia Postop Eval I 09/29/24 1337 MR#: [id number] Acct: [id number] Name: FRANCHESKA CROSS Rep #:[id number] : 1955 69 From: Marcelo Vick CRNA PCP: Dr. Janey Camp MD Status:REG [facility] Y Race: C Location: [place] [address] Anesthesia: Postop Eval I Current Vital Signs [...] CRNA Cosigner Signature: Date CC: ~ Signed [facility] Work Phone: 1(416) 488-588005-27-2025 Procedure note [facility] Medical Records Department [address] [place] [address] Operative Report 09/29/24 1319 MR#: [id number] Acct: [id number] Name: FRANCHESKA CROSS Rep #:[id number] : 1955 69 From: Allyson Hercules DO PCP: Dr. Janey Camp MD Status:REG [facility] Location: [address] Problems Associated Problem List Diagnoses (1) Fibroid of cervix: (2) Postmenopausal bleeding: (3) Incisional hernia of anterior abdominal wall without obstruction or gangrene: Multi Select Codes Urinary/Genital Urinary/Genital CPT Codes: 37041 Cystoscopy, 80725 TLH+BS/O <250gr uterus and Other Procedure See Report (lysis of adhesions ) Operative Report (Standard) Operative Information Date of Procedure: 09/29/24 Pre-Operative Diagnosis: postmenopausal bleeding, cervical fibroid Post-Operative Diagnosis: postmenopausal bleeding, cervical fibroid, pelvic and abdominal adhesions Surgery/Procedure Performed: total robotic hysterectomy, right salpingo- oophorectomy, lysis of adhesions, cystoscopy district plant engineer: Yes Vp Site: [place] Tasks completed by airline pilot/first officer: Closing, Insert Trochanter, Trocar and Retracting Additional talent acquisition assistant?: No Type of Anesthesia: General RN [...] Next a left upper quadrant 8 mm talent acquisition assistant port sitewas placed to be used [...] SCD's VTE Pharm Prophylaxis ordered?: No 09/29/24 1351 Cosigner Signature (if applicable): CC: Dr. Janey Camp MD; Dr. Allyson Hercules DO~ Signed [facility]05-27-2025 Consult note [facility] Medical Records Department [address] [place] [address] Anesthesia Postop Eval I 09/29/24 1337 MR#: [id number] Acct: [id number] Name: FRANCHESKA CROSS Rep #:[id number] : 1955 69 From: Marcelo Vick [employer] ROLL MAN PCP: Dr. Janey Camp MD Status:REG [facility] Y Race: C Location: [place] [address] Anesthesia: Postop Eval I Current Vital Signs [...] Eval 1 completed: Yes 09/29/24 1338 ds GRE[employer] ROLL MAN> Date _ Marcelo Vick [employer]LL MAN Cosigner Signature: Date CC: ~ Signed [facility]05-27-2025 History and physical note Author Allyson Deleon [facility] Note Date/Time September 29, 2024 10:06 am [facility] Medical Records Department [address] [place] [address] History & Physical Exam 09/29/24 0915 MR#: [id number] Acct: [id number] Name: FRANCHESKA CROSS Rep #:[id number] : 1955 69 From: Allyson Hercules DO PCP: Dr. 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 Allyson Hercules DO~ Signed [facility] Work Phone: 1(778) 383-244205-27-2025 History and physical note Author Allyson Deleon [facility] Note Date/Time September 29, 2024 10:06 am [facility] Medical Records Department [address] [place] [address] History & Physical Exam 09/29/2415 MR#: [id number] Acct: [id number] Name: FRANCHESKA CROSS Rep #:[id number] : 1955 69 From: Allyson Hercules DO PCP: Dr. Janey Camp MD Status:REG SDC Location: [place] [address]- History and Physical Date of Admission: 09/29/24 Intake Vital Signs 08/14/2512:54 09/23/2508:37 09/23/2508:38 Height 5 ft 6 in 5 ft 6 in 5 ft 6 in Weight: 196 lb 198 lb 4 oz BMI 31.6 32.0 BP 116/70 113/75 Intake Visit Reasons: TRH BSO cyst Anatomy Professor Required: No Is patient in pain?: No [...] Camp MD; Dr. Allyson Hercules DO~ Signed [facility] Work Phone: 1(356) [phone] Consult note Author Marcelo Vick [facility] Note Date/Time May 27th, 2025 9:59a m [facility] Medical Records Department [address] [place] [address] Pre-Anesthesia Evaluation 09/29/24 0958 MR#: [id number] Acct: [id number] Name: FRANCHESKA CROSS Rep #:[id number] : 1955 69 From: Marcelo Vick CRNA PCP: Dr. 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: Anesthesia History - 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 Hx Hospitalization No 09/15/24 14:08 Any Problems [...] take am of surgery PONV PONV - 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: PONV - 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 Female Yes 09/15/24 14:08 HX of Motion [...] 09/29/24 09:11 Respiratory Assessment Respiratory Assessment - 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: Respiratory Tract Infection Hx - 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 Hx Respiratory Tract Infection No 09/15/24 14:08 STOP Sleep Apnea STOP Sleep Apnea - 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: STOP Sleep Apnea - 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 Hx Hypertension Yes 09/15/24 14:08 Hx Sleep [...] Tobacco Use History Tobacco Use History - 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: Tobacco Use History - 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 Specify any problems Hx of Preganancy in last 3 No 09/15/24 14:08 Months Nurse Filling Out Transfusion [facility] 09/15/24 14:08 & Questions: Date: 09/15/24 09/15/24 14:08 Time: 14:14 09/15/24 14:08 Patient unable to answer at this time (ie. confused, unrespo /Reproduction History /Reproductive History - 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: /Reproductive Hx- 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 Hx Now No 09/15/24 14:08 Gestational Age [...] mls @ 70 mls/hr 09/29/24 10:20 IV .[id number] MICHELLE Magnesium Sulfate 1 gm/ 102 mls [...] 09/29/24 10:21 1 patch PREOP ONE Administration [facility] Medical History Wears glasses Diabetes Ambulates with [...] obese Neck full ROM Extremity full ROM 09/29/2459 <Electronically signed by Marcelo cr [employer] ROLL MAN> Date _ Marcelo Vick GREY ROLL MAN Cosigner Signature: Date CC: ~ Signed [facility] Work Phone: 1(684) 567-882205-27-2025 Consult note Author [facility] Note Date/Time September 29, 2024 9:40a [facility] Medical Records Department [address] [place] [address] Pre-Anesthesia Evaluation 09/29/24 0936 MR#: [id number] Acct: [id number] Name: FRANCHESKA CROSS Rep #:[id number] : 1955 69 From: John Jung MD PCP: Dr. Janey Camp MD Status:REG SDC Y Race: C Location: [place] [address] ASA Classification* ASA Classification ASA Classification: 2 [...] 09/23/24 BUN 24 mg/dL (4-19) H 09/23/24 09:09/23/24 Creatinine 1.10 mg/dL (0.70-1.20) 09/23/24 09:30 09/23/24 Glucose 105 mg/dL (70-99) H 09/23/24 09:30 09/23/24 POC Glucose 86 mg/dL (74-106) 09/29/24 08:44 09/29/24 TSH 2.240 uIU/mL (0.358-3.740) 03/13/24 10:33 11/0 12/27 COAG Pre-Assessment Diagnosis/Proposed Procedure Planned Operative Procedure(s): Lap Total Robotic Hysterectomy BSO, Cystoscopy Anesthesia History Anesthesia History - 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: Anesthesia History - 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 Hx Hospitalization No 09/15/24 14:08 Any Problems [...] take am of surgery PONV PONV - 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: PONV - 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 Female Yes 09/15/24 14:08 HX of Motion [...] 09/29/24 09:11 Respiratory Assessment Respiratory Assessment - 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: Respiratory Tract Infection Hx - 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 Hx Respiratory Tract Infection No 09/15/24 14:08 STOP Sleep Apnea STOP Sleep Apnea - 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: STOP Sleep Apnea - 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 Hx Hypertension Yes 09/15/24 14:08 Hx Sleep [...] Tobacco Use History Tobacco Use History - 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: Tobacco Use History - 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 Specify any problems Hx of Preganancy in last 3 No 09/15/24 14:08 Months Nurse Filling Out Transfusion [facility] 09/15/24 14:08 & Questions: Date: 09/15/24 09/15/24 14:08 Time: 14:14 09/15/24 14:08 Patient unable to answer at this time (ie. confused, unrespo /Reproduction History /Reproductive History - 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: /Reproductive Hx- 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 Hx Now No 09/15/24 14:08 Gestational Age [...] mls @ 70 mls/hr 09/29/24 10:20 IV .[id number] MICHELLE Magnesium Sulfate 1 gm/ 102 mls [...] MD Cosigner Signature: Date CC: ~ Signed [facility] Work Phone: 1(843) [phone] Discharge summary Author Allyson Deleon [facility] Note Date/Time September 29, 2024 9:28a m [facility] Medical Records Department [address] [place] [address] Instructions for Home/Discharge Instructions 09/29/24924 MR#: [id number] Acct: [id number] Name: FRANCHESKA CROSS Rep #:[id number] : 1955 69 From: Allyson Hercules DO PCP: Dr. Janey Camp MD Status:REG [facility] Discharge Instructions Diet Discharge Diet: No restrictions [...] Care Provider: Janey Camp Instructions Print Language: Norwegian Discharge Orders/Prescriptions Prescriptions: New docusate sodium [Colace] [...] CC: Dr. Janey Camp MD ~ Signed [facility] Work Phone: 1([phone]) [phone] Discharge summary Author Allyson Deleon [facility] Note Date/Time September 29, 2024 9:28a m [facility] Medical Records Department [address] [place] [address] Instructions for Home/Discharge Instructions 09/29/24 0925 MR#: [id number] Acct: [id number] Name: FRANCHESKA CROSS Rep #:[id number] : 1955 69 From: Allyson Hercules DO [...] Care Provider: Janey Camp Instructions Print Language: Norwegian Discharge Orders/Prescriptions Prescriptions: New docusate sodium [Colace] [...] CC: Dr. Janey Camp MD ~ Signed [facility] Work Phone: 1([phone]) 390-851505-27-2025 History and physical note [facility] Medical Records Department [address] [place] [address] History & Physical Exam 09/29/24914 MR#: [id number] Acct: [id number] Name: FRANCHESKA CROSS Rep #:[id number] : 1955 69 From: Allyson Hercules DO PCP: Dr. Janey Camp MD Status:[facility] Location: [place] [address] History and Physical Date of Admission: 09/29/24 Intake Vital Signs 08/14/2512:54 09/23/2508:37 09/23/2508:38 Height 5 ft 6 in 5 ft 6 in 5 ft 6 in Weight: 196 lb 198 lb 4 oz BMI 31.6 32.0 BP 116/70 113/75 Intake Visit Reasons: TRH BSO cyst Anatomy Professor Required: No Is patient in pain?: No [...] Dr. Janey Camp MD; Dr. Allyson Hercules, DO~ Signed [facility]05-27-2025 Consult note [facility] Medical Records Department [address] [place] [address] Pre-Anesthesia Evaluation 09/29/24 0958 MR#: [id number] Acct: [id number] Name: FRANCHESKA CROSS Rep #:[id number] : 1955 69 From: Marcelo Vick CRNA PCP: Dr. 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 Hx Hospitalization No 09/15/24 14:08 Any Problems [...] take am of surgery PONV PONV - 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: PONV - 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 Female Yes 09/15/24 14:08 HX of Motion [...] 09/29/24 09:11 Respiratory Assessment Respiratory Assessment - 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: Respiratory Tract Infection Hx - 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 Hx Respiratory Tract Infection No 09/15/24 14:08 STOP Sleep Apnea STOP Sleep Apnea - 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: STOP Sleep Apnea - 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 Hx Hypertension Yes 09/15/24 14:08 Hx Sleep [...] Tobacco Use History Tobacco Use History - 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: Tobacco Use History - 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 Specify any problems Hx of Preganancy in last 3 No 09/15/24 14:08 Months Nurse Filling Out Transfusion [facility] 09/15/24 14:08 & Questions: Date: 09/15/24 09/15/24 14:08 Time: 14:14 09/15/24 14:08 Patient unable to answer at this time (ie. confused, unrespo /Reproduction History /Reproductive History - 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: /Reproductive Hx- 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 Hx Now No 09/15/24 14:08 Gestational Age [...] mls @ 70 mls/hr 09/29/24 10:20 IV .[id number] MICHELLE Magnesium Sulfate 1 gm/ 102 mls [...] ROM Extremity full ROM 09/29/24 0959 ds GREY ROLL MAN> Date _ Marcelo Vick GREY ROLL MAN Cosigner Signature: Date CC: ~ Signed [facility]05-27-2025 Consult note [facility] Medical Records Department [address] [place] [address] Pre-Anesthesia Evaluation 09/29/2436 MR#: [id number] Acct: [id number] Name: FRANCHESKA CROSS Rep #:[id number] : 1955 69 From: John Jung MD PCP: Dr. Janey Camp MD Status:REG [facility] Y Race: C Location: [place] [address] ASA Classification* ASA Classification ASA Classification: 2 [...] 10:23 09/23/24 Hgb 13.0 g/dL (12.0-15.0) 09/23/24 10:09/23/24 Hct 40.0 % (37-47) 09/23/24 10:23 09/23/24 Plt Count 333 K/mm3 (150-450) 09/23/24 10:23 09/23/24 CHEMISTRY Potassium 3.9 mmol/L (3.3-5.1) 09/23/24 09:30 09/23/24 Sodium 142 mmol/L (133-145) 09/23/24 09:09/23/24 Magnesium 2.1 mg/dL (1.5-2.2) 09/23/24 09:09/23/24 BUN 24 mg/dL (4-19) H 09/23/24 09:09/23/24 Creatinine 1.10 mg/dL (0.70-1.20) 09/23/24 09:30 09/23/24 Glucose 105 mg/dL (70-99) H 09/23/24 09:30 09/23/24 POC Glucose 86 mg/dL (74-106) 09/29/24 08:44 09/29/24 TSH 2.240 uIU/mL (0.358-3.740) 03/13/24 10:33 11/0 12/27 COAG Pre-Assessment Diagnosis/Proposed Procedure Planned Operative Procedure(s): Lap Total Robotic Hysterectomy BSO, Cystoscopy Anesthesia History Anesthesia 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 - 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: Anesthesia History - 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 Hx Hospitalization No 09/15/24 14:08 Any Problems [...] take am of surgery PONV PONV - 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: PONV - 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 Female Yes 09/15/24 14:08 HX of Motion [...] 09/29/24 09:11 Respiratory Assessment Respiratory Assessment - 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: Respiratory Tract Infection Hx - 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 Hx Respiratory Tract Infection No 09/15/24 14:08 STOP Sleep Apnea STOP Sleep Apnea - 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: STOP Sleep Apnea - 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 Hx Hypertension Yes 09/15/24 14:08 Hx Sleep [...] Tobacco Use History Tobacco Use History - 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: Tobacco Use History - 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 Specify any problems Hx of Preganancy in last 3 No 09/15/24 14:08 Months Nurse Filling Out Transfusion ISAIAS 09/15/24 14:08 & Questions: Date: 09/15/24 09/15/24 14:08 Time: 14:14 09/15/24 14:08 Patient unable to answer at this time (ie. confused, unrespo /Reproduction History /Reproductive History - 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: /Reproductive Hx- 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 Hx Now No 09/15/24 14:08 Gestational Age [...] mls @ 70 mls/hr 09/29/24 10:20 IV .[id number] MICHELLE Magnesium Sulfate 1 gm/ 102 mls [...] 09/29/24 10:21 1 patch PREOP ONE Administration [facility] Medical History Wears glasses Diabetes Ambulates with [...] MD Cosigner Signature: Date CC: ~ Signed [facility]05-27-2025 Discharge summary [facility] Medical Records Department [address] [place] [address] Instructions for Home/Discharge Instructions 09/29/24924 MR#: [id number] Acct: [id number] Name: FRANCHESKA CROSS #:[id number] : 1955 69 From: Allyson Hercules DO [...] Care Provider: Janey Camp Instructions Print Language: Norwegian Discharge Orders/Prescriptions Prescriptions: New docusate sodium [Colace] [...] Order can be placed): Home, Self Care 09/29/2428Jememo Hercules DO CC: Dr. Janey Camp MD ~ Signed [facility]05-27-2025 [facility] Medical Records Department [address] [place] [address] History Physical Exam 09/29/24914 MR#: [id number] Acct: [id number] Name: FRANCHESKA CROSS Rep #: [id number] : 1955 69 From: Allyson Hercules DO PCP: Dr. Janey Camp MD Status:[facility] Location: [place] [address] History and Physical Date of Admission: 09/29/24 Intake Vital Signs 08/14/2512:54 09/23/2508:37 09/23/2508:38 Height 5 ft 6 in 5 ft 6 in 5 ft 6 in Weight: 196 lb 198 lb 4 oz BMI 31.6 32.0 BP 116/70 113/75 Intake Visit Reasons: TRH BSO cyst Anatomy Professor Required: No Is patient in pain?: No [...] normal respiratory effort Ski (more content not included)...[facility]05-21-2025 Hospital Discharge instructionsAmbulatory Orders* 12 Lead EKG [[facility]] Time Frame: 09/23/24, Location: None Selected [facility] Work Phone: 1(403) 769-357804-11-2025 Evaluation note* Diagnosis Onset Date Resolution Status Admit Date Fibroid of cervix acute August 042024 2:03pm [...] h oophorectomy acute October 13, 2024 10:35am Status post hysterectomy wit h oophorectomy acute November 09, 2024 1 0:15am [facility] Work Phone: 1(804) 615-797803-28-2025 Radiology Diagnostic study note [facility] Imaging Services [address] [place] [address] Transvaginal Non- MR#: [id number] Acct: [id number] Name: FRANCHESKA CROSS Rep #: [id number] : 1955 F 68 From: Samanta Hyman MD PCP: Dr. Janey Camp MD Status: REG CLI Study:Transvaginal Non- Date of Exam: 07/27/24 Exam# [id number] Ordering Dr: Selina Sam MD EXAM: US [...] Non- IMPRESSION: Fibroid as above. Reading Location: [facility] CC: Dr. Janey Camp MD; Dr. Selina Beal MD ~ Skidder Loader: Signed [facility]03-19-2025 NotePap Smear Specimen AdequacyMarch 2024 11:59pmComment.Satisfactory for evaluation. Endocervical and/or squamous metaplasticcells (endocervical component)are present.[facility] INTER[facility]ED A#[id number] Shriners HospitalComment on above:Satisfactory for evaluation. Endocervical and/or squamous metaplasticcells (endocervical component)are present.07-22-2024 NotePap Smear Specimen AdequacyMarch 2024 11:59pmComment.Satisfactory for evaluation. Endocervical and/or squamous metaplasticcells (endocervical component)are present.[facility] INTER[facility] A#[id number] Shriners HospitalComment on above:Satisfactory for evaluation. Endocervical and/or squamous metaplasticcells (endocervical component)are present.07-22-2024 NotePap Smear Specimen AdequacyMarch 2024 11:59pmComment.Satisfactory for evaluation. Endocervical and/or squamous metaplasticcells (endocervical component)are present.[facility] INTER[facility] A#[id number] Shriners HospitalComment on above:Satisfactory for evaluation. Endocervical and/or squamous metaplasticcells (endocervical component)are present.07-22-2024 Evaluation note* Diagnosis Onset Date Resolution Status Admit Date Postmenopausal bleeding acute M arch 2024 10:20am [facility] Work Phone: [phone] Evaluation note* Diagnosis Onset Date Resolution Status Admit Date Postmenopausal bleeding acute M arch 2024 10:20am Fibroid of cervix acute August 042024 2:03pm Postmenopausal bleeding acute A pril 2024 2:03pm Status post hysteroscopic polypectomy acute August 14, 2024 2:03pm HTN (hypertension) chronic August 14, 2024 2:03pm [facility] Work Phone: 1(300) 597-871403-19-2025 Evaluation note* Diagnosis Onset Date Resolution Status [...] without obstruction or gangrene chronic September 1:10pm [facility] Work Phone: 1(733) 354-390803-19-2025 Evaluation note* Diagnosis Onset Date Resolution Status [...] without obstruction or gangrene chronic September 1:10pm [facility] Work Phone: 1(944) 186-161903-19-2025 Evaluation note* Diagnosis Onset Date Resolution Status [...] without obstruction or gangrene chronic September 8:10am [facility] Work Phone: 1(969) 658-549303-19-2025 Evaluation note* Diagnosis Onset Date Resolution Status [...] h oophorectomy acute October 13, 2024 10:35am [facility] Work Phone: Consult note Author Eve Willard [facility] Note Date/Time September 30, 2024 10:27 am [facility] Medical Records Department [address] [place] [address] Counseling Note - Pharmacy 09/30/24 1025 MR#: [id number] Acct: [id number] Name: FRANCHESKA CROSS Rep #:[id number] : 1955 69 From: Eve Willard PCP: Dr. Janey Camp MD Status:DIS MIRANDA Y Location: [place] [address] Pharmacy [facility] Counseling Pharmacy Service has performed discharge medication reconciliation [...] Signature (if applicable): Date CC: ~ Signed [facility] Work Phone: Evaluation noteNo assessment information available [facility] Work Phone: Progress note Author Yen Felder [facility] Note Date/Time October 13, 2024 10:5 0am [facility] [address], [address] [place] [address] OFFICE VISIT Date of Service: 10/13/24 MR#: [id number] Acct: [id number] Name: FRANCHESKA CROSS Rep #: [id number] : 1955 Provider: NAMRATA Felder Age/Sex: 69/F Location: [facility] [place] Status: Signed Intake Vital Signs 08/14/24 13:54 09/29/24 15:49 10/13/24 10:36 10/13/24 10:44 Height 5 ft 6 in 5 ft 6 in 5 ft 6 in 5 ft 6 in Weight: 198 lb 2 oz BMI 31.9 BP 127/80 H Intake Visit Reasons: 2 wk TRH BSO Cysto Chief Complaint: 2 Week TRH BSO cysto Anatomy Professor Required: No Is patient in pain?: No [...] menopausal: Yes Patient : No : [facility] Wears glasses Diabetes Ambulates [...] 2 wk TRH BSO Cysto Details: FRANCHESKA RCOSS is a 69 year old who presents [...] 10/13/24 1050 <Electronically signed by Yen moeller NP THREADING MACHINE FEEDER AUTOMATIC-C> Date _ Yen Felder NP THREADING MACHINE FEEDER AUTOMATIC-C Cosigner Signature: Date (if applicable) CC: ~ [facility] Work Phone: Reason for referral (narrative)No reason for referral information availableWGalion Hospital Work Phone: Family History No Family History Records Found Relationship Condition Age at Onset Recorded Date/T fidel mother Hypertension Unknown father Diabetes mellitus Unknown son Seizure Unknown Advance Directives No Advanced Directives Records Found Advance Directive Response Recorded Date/ Time Living Will Yes May 23 10:07am Power of Asset Recovery Specialist Yes May 23, 2017 10:07am Advance Directive Response Recorded Date/ Time Living Will Yes January 22, 2024 2:35pm Do you have a Healthcare Power of Asset Recovery Specialist? Yes January 22, 2024 2:35pm Advance Directive Response Recorded Date/ Time Do you have a Healthcare Power of Asset Recovery Specialist? Yes September 29, 2024 3:49pm Chief Complaint [...] BSO Cysto November 09, 2024 10:15 am Chief Complaint Admit Date 6 MTH F/U August 14, 2024 2:0 [...] BSO Cysto November 09, 2024 10:15 am breast cancer screening November 27, 2024 10:12am Reason for Visit Admit Date Fibroid of cervix August 14, 2024 2:0 [...] with oophorecto my October 13, 2024 10:35am Status post hysterectomy with oophorecto my November 09, 2024 10:15am Summary Purpose Additional Source Comments Goals (unrecognized [...] Status: Active Member Role Status Dates Dr. Jaeny Camp MD Primary Care Provider Active Start: [...] 29, 2024 Dr. Allyson Hercules , DO Referring Provider Activ e Start: September 29, 2024 Team Status: Inactive Member Role Status Dates Dr. Janey Camp MD Primary Care Provider Active Start: September 29, 2024 End: September 30, 2024 Dr. Allyson Hercules DO Admit Provider Active Start: September 29, [...] End: October 13, 2024 Yen Felder NP, THREADING MACHINE FEEDER [employer]ATIC-C Attending Provider Active Start: October 13, 2024 [...] 2024 End: October 13, 2024 Yen Felder THREADING MACHINE FEEDER AUTOMATIC, THREADING MACHINE FEEDER AUTOMATIC-C Attending Provider Active Start: October 13, 2024 End: October 13, 2024 Team Status: Inactive Member Role/Relationship Status Dates Dr. Janey Camp MD Primary Care Provider Active Start: November 09, 2024 End: November 09, 2024 Dr. Janey Camp MD Referring Provider Active Start: November 09, 2024 End: November 09, 2024 Dr. Allyson Hercules DO Attending Provider Activ e Start: November 09, 2024 End: November 09, 2024 Team Status: Inactive Member Role/Relationship Status [...] End: October 13, 2024 Yen Felder NP, THREADING MACHINE FEEDER AUTOMATIC-C Attending Provider Active Start: October 13, 2024 End: October 13, 2024 Team Status: Inactive Member Role/Relationship Status Dates Dr. Janey Camp MD Primary Care Provider Active Start: November 09, 2024 End: November 09, 2024 Dr. Janey Camp MD Referring Provider Active Start: November 09, 2024 End: November 09, 2024 Dr. Allyson Hercules DO Attending Provider Activ e Start: November 09, 2024 End: November 09, 2024 Team Status: Inactive Member Role/Relationship Status Dates Dr. Janey Camp MD Primary Care Provider Active Start: November 27, 2024 End: November 27, 2024 Dr. Allyson Hercules DO Attending Provider Activ e Start: November 27, 2024 End: November 27, 2024 Dr. Allyson Hercules DO Referring Provider Activ e Start: November 27, 2024 End: November 27, 2024 INFORMATION SOURCE (unrecogn ized section and content) DATE CREATED AUTHOR 03/12/2025 [facility] FOR RECORDS PERTAINING TO PATIENTS WHO ARE [...] BE BASED ON THE PRIMARY CLINICAL RECORDS. [employer] [facility]. provides no warranty or guarantee of the accuracy or completeness of information in this document.
== END | disposition home or self-care (01) ==
LOC: CT 13:24
PROVIDERS: PCP Family Medicine; Referring Provider Orthopaedic Surgery; Visit Provider Orthopaedic Surgery
DX: M17.12 Unilateral primary osteoarthritis, left knee (principal)
CPT/HCPCS: 73700

== ENCOUNTER → 2025-04-13 | Outpatient (CLI) | payer MEDICARE, OTHER, SELFPAY ==
[2025-04-13 10:55] LABS: Hematocrit 41.7 % (37-47); Hemoglobin 13.6 g/dL (12.0-15.0); Immature Granulocytes Count 0.020 X10^3/uL (0.0-0.0); Mean Corp Hgb Conc 32.6 g/dL (32-36); Mean Corpuscular Volume 91.0 fL (81-99); Mean Platelet Vol. 10.2 fl (6.2-12.0); NRBC Flagged by Analyzer 0 % (0-5); Platelet Count 294 K/mm3 (150-450); RBC Distribution Width CV 14.2 % (11.6-14.6); RBC Distribution Width SD 48.0 fl (35.1-43.9); Red Blood Count 4.58 M/mm3 (4.2-5.4); White Blood Count 10.4 K/mm3 (4.4-11.0)
[2025-04-13 11:33] LABS: Albumin, Serum 4.2 g/dL (3.4-4.8); Anion Gap 10 (5-15); BUN 24 mg/dL (4-19); BUN/Creat Ratio 25.9 RATIO (10-20); Calcium,Total 9.5 mg/dL (7.6-11.0); Carbon Dioxide 30.4 mmol/L (21.0-32.0); Chloride 103 mmol/L (98-108); Glucose 101 mg/dL (70-99); Potassium 3.7 mmol/L (3.3-5.1)
== END | disposition home or self-care (01) ==
PROVIDERS: PCP Family Medicine; Referring Provider Orthopaedic Surgery; Visit Provider Orthopaedic Surgery
DX: Z01.818 Encounter for other preprocedural examination (principal); E11.9 Type 2 diabetes mellitus without complications; I10 Essential (primary) hypertension
CPT/HCPCS: 36415; 80048; 82040; 83036; 85025

== ENCOUNTER → 2025-04-21 | Outpatient (CLI) | payer MEDICARE, OTHER, SELFPAY ==
[2025-04-21 15:35] LABS: Hematocrit 41.9 % (37-47); Hemoglobin 13.2 g/dL (12.0-15.0); Immature Granulocytes Count 0.020 X10^3/uL (0.0-0.0); Mean Corp Hgb Conc 31.5 g/dL (32-36); Mean Corpuscular Volume 92.1 fL (81-99); Mean Platelet Vol. 10.4 fl (6.2-12.0); NRBC Flagged by Analyzer 0 % (0-5); Platelet Count 329 K/mm3 (150-450); RBC Distribution Width CV 14.4 % (11.6-14.6); RBC Distribution Width SD 48.3 fl (35.1-43.9); Red Blood Count 4.55 M/mm3 (4.2-5.4); White Blood Count 10.2 K/mm3 (4.4-11.0)
[2025-04-21 16:02] LABS: Creatinine, Urine (random) 98.90 mg/dL (28.00-217.00); Microalbumin,Random Urine < 12.0 mg/L (<20 mg/L)
[2025-04-21 16:17] LABS: AST(SGOT) 16 U/L (<=31); Alanine Aminotransfer ALT/SGPT 12 U/L (<=34); Albumin, Serum 4.1 g/dL (3.4-4.8); Alkaline Phosphatase 54 U/L (35-104); Anion Gap 13 (5-15); BUN 27 mg/dL (4-19); BUN/Creat Ratio 31.0 RATIO (10-20); Calcium,Total 9.3 mg/dL (7.6-11.0); Carbon Dioxide 25.1 mmol/L (21.0-32.0); Chloride 104 mmol/L (98-108); Cholesterol 164 mg/dL (<=200); FOLATES,SERUM (FOLIC ACID) 11.50 ng/mL (4.60-34.80); Globulin 2.4 g/dL (2.2-4.2); Glucose 97 mg/dL (70-99); Low Density Lipoprotein Calc. 82 mg/dL; Potassium 3.6 mmol/L (3.3-5.1); Triglycerides 250 mg/dL; Very Low Density Lipoprotein 50 mg/dL (5-40); Vitamin B12 1288 pg/mL (180-914); Vitamin D,25 Hydroxy 34.6 ng/mL (30-100); cholesterol:hdl ratio screen 4.04
--- OUTSIDE RECORDS SUMMARY | 2025-04-21 19:11 | XMS RPT_ITS | CCD ---
Author Organization [facility] Providers Care Motorbike Courier Name Role Phone Conrado GARCIA, Dr. Janey [...] Unavailable Jolliff, Janey S Referring Unavailable [facility] Attending Unavailable Jolliff, Janey S Primary Care [...] (12 sources) HYDROcodone Drug Allergy 06-07-2017 Unknown [facility] (1 source) HYDROcodone Drug Allergy 11-09-2024 [facility] Repository Medications Current Medications Medication Drug Class(es) [...] By: Betty Fernandes on 11-27-2024 Study report [facility] Imaging Services [address] [place], [place] [address] SCRN MAMM (CAD)W/YOSEPH BILAT MR#: [id number] Acct: [id number] Name: FRANCHESKA CROSS Rep #: [id number] : 1955 F 69 From: Jessa Fernandes MD PCP: Dr. Janey Camp [facility] Study:SCRN MAMM (CAD)W/YOSEPH BILAT Date of Exa m: 11/27/24 Exam# [id number] Ordering Dr: Allyson Bains DO EXAM: SCRN [...] be mailed to the patient. Reading Location: [id number] CC: Dr. Janey Camp MD; Dr. Allyson Hercules DO ~ Informatics Nurse: Signed [facility] SCRN MAMM (CAD)W/YOSEPH BILATo n 11-27-2024 SCRN MAMM (CAD)W/YOSEPH BILAT [facility] Imaging Services [address] [place] [address] SCRN MAMM (CAD)W/YOSEPH BILAT MR#: [id number] Acct: [id number] Name: FRANCHESKA CROSS Rep #: [id number] : 1955 F 69 From: Betty Fernandes MD PCP: Dr. Janey Camp MD Status: REG CLI Study: SCRN MAMM (CAD)W/YOSEPH BILAT Date of Exam: 11/04 09/27 Exam# [id number] Ordering Dr: Allyson Hercules DO EXAM: SCRN [...] be mailed to the patient. Reading Location: [id number] CC: Dr. Janey Camp MD; Dr. Allyson Hercules DO Informatics Nurse: Signed Normal [facility] Executive Legal Secretary Office Visit Reporton 11-09-2024 Executive Legal Secretary Office Visit Report [facility] [address], [address] [place] [address] OFFICE VISIT Date of Service: 11/09/24 MR#: [id number] Acct: [id number] Name: FRANCHESKA CROSS Rep #: [id number] : 1955 Provider: Dr. 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 Normal [facility] Executive Legal Secretary Office Visit Reporton 10-13-2024 Executive Legal Secretary Office Visit Report [facility] [address], [address] [place] [address] OFFICE VISIT Date of Service: 10/13/24 MR#: [id number] Acct: [id number] Name: FRANCHESKA CROSS Rep #: [id number] : 1955 Provider: NAMRATA ca Age/Sex: 69/F [place] [facility] Status: Signed Intake Vital Signs 08/14/24 13:54 09/29/24 15:49 10/13/24 10:36 10/13/24 10:44 Height 5 ft 6 in 5 ft 6 in 5 ft 6 in 5 ft 6 in Weight: 198 lb 2 oz BMI 31.9 BP 127/80 H Intake Visit Reasons: 2 wk 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 Silviculture Required: No Is patient in pain?: No [...] menopausal: Yes Patient : No : No [facility] Medical History Wears glasses Diabetes Ambulates with [...] pathology 10/13/24 1050 Date Yen Felder NP [facility] Cosigner Signature: Date (if applicable) CC: Normal [facility] Anion gap in Serum or Plasma Ordered By: Allyson Deleon on 09-30-2024 Anion gap [Moles/Vol] 11 mmol/L 5-15 [facility] Automated blood erythrocyte countOrdered By: Allyson Deleon on 09-30-2024 RBC (Bld) [#/Vol] 3.53 10*6/uL Low 4.2-5.4 [facility] Comment on above: Performed By: #### L 501.080 #### [facility] Laboratory [facility] [place], [address] Automated blood hematocrit ( percentage)Ordered By: Allyson Deleon on 09-30-2024 Hematocrit (Bld) [Volume fraction] 31.9 % Low 37-47 [facility] Comment on above: Performed By: #### L 501.080 #### [facility] [address] [place], [address] BUN/creatinine ratioOrdered By: Allyson Deleon on 09-30-2024 Urea nitrogen/Creatinine [Mass ratio] 23.3 mg/mg High 10-20 [facility] Bedside Glucoseon 09-30-2024 FINGERSTICK GLU 147 mg/dL High 74-106 [facility] Comment on above: Result Comment: SANDRA GEMENT OF PATIENT CARE PER NURSING PROTOCOL Performed By: #### L 100.0100 #### [facility] [address] [place], [address] FINGERSTICK GLU 184 mg/dL High 74-106 [facility] Comment on above: Result Comment: SANDRA GEMENT OF PATIENT CARE PER NURSING PROTOCOL Performed By: #### L 501.080 #### [facility] [address] [place], [address] Bilirubin, totalOrdered By: Allyson Deleon on 09-30-2024 Bilirubin [Mass/Vol] 0.50 mg/dL Normal 0.00-1.30 [facility] Comment on above: Performed By: #### L 500.4050 #### [facility] [address] [place], [address] CBC-Complete Blood Cnt No Di ffon 09-30-2024 RDW SD 46.2 fl High 35.1-43.9 [facility] Comment on above: Performed By: #### L 501.080 #### [facility] [address] [place], [address] Carbon dioxide, total [Moles /volume] in Central venous bloodOrdered By: Allyson Deleon on 09-30-2024 CO2 [Moles/Vol] 21.4 mmol/L Normal 21.0-32.0 [facility] Comment on above: Performed By: #### L 500.4050 #### [facility] [address] [place], [address] Chloride assayOrdered By: Maged Deleon on 09-30-2024 Chloride [Moles/Vol] 106 mmol/L Normal 98-108 [facility] Comment on above: Performed By: #### L 500.4050 #### [facility] [address] [place], [address] Comprehensive Metabolic Prof ilon 09-30-2024 ALK PHOS 38 U/L Normal 35-104 [facility] Comment on above: Performed By: #### L 500.4050 #### [facility] [address] [place], [address] BUN/CRE 23.3 RATIO High 10-20 [facility] Comment on above: Performed By: #### L 500.4050 #### [facility] [address] [place], [address] ECRCL 57.55 ml/min Normal 50-250 [facility] Comment on above: Performed By: #### L 500.4050 #### [facility] [address] [place], [address] GAP 11 Normal 5-15 [facility] Comment on above: Performed By: #### L 500.4050 #### [facility] [address] [place], [address] Potassium [Moles/Vol] 4.1 mmol/L Normal 3.3-5.1 [facility] Comment on above: Performed By: #### L 500.4050 #### [facility] [address] [place], [address] T PROT 5.7 g/dL Low 5.9-8.4 [facility] Comment on above: Performed By: #### L 500.4050 #### [facility] [address] [place], [address] Comprehensive Metabolic Prof ilOrdered By: Allyson Deleon on 09-30-2024 AST [Catalytic activity/Vol] 38 U/L High <=31 [facility] Comment on above: Performed By: #### L 500.4050 #### [facility] [address] [place], [place], [address] Erythrocyte distribution wid th ratioOrdered By: Allyson Deleon on 09-30-2024 Erythrocyte distribution width (RBC) [Ratio] 14.0 % Normal 11.6-14.6 [facility] Comment on above: Performed By: #### L 501.080 #### [facility] [address] [place], [place], [address] Erythrocyte distribution wid th standard deviationOrdered By: Allyson Deleon on 09-30-2024 Erythrocyte distribution width (RBC) [Ratio] 46.2 fl High 35.1-43.9 [facility] Glomerular filtration rate ( GFR) estimation/1.73 sq m using serum, plasma, or whole bOrdered By: Allyson Deleon on 09-30-2024 GFR/1.73 sq M.predicted among non-blacks MDRD (S/P/Bld) [Vol rate/Area] 59 mL/min/{1.73_m2} Low >60 [facility] Comment on above: mL/min/1.73m2 CKD-EP I Creatinine Equation (2020) Result Comment: mL/m in/1.73m2 CKD-EPI Creatinine Equation (2020) Performed By: #### L 500.4050 #### [facility] [address] [place], [place], [address] Glucose measurement at bedsi deOrdered By: Allyson Deleon on 09-30-2024 Glucose [Mass/Vol] 147 mg/dL High 74-106 [facility] Comment on above: MANAGEMENT OF PATIEN T CARE PER NURSING PROTOCOL Hemoglobin measurementOrdere d By: Allyson Deleon on 09-30-2024 Hemoglobin (Bld) [Mass/Vol] 10.5 g/dL Low 12.0-15.0 [facility] Comment on above: Performed By: #### L 501.080 #### [facility] [address] [place], [address] MCV (mean corpuscular volume ) determinationOrdered By: Allyson Deleon on 09-30-2024 MCV (RBC) [Entitic vol] 90.4 fL Normal 81-99 [facility] Comment on above: Performed By: #### L 501.080 #### [facility] [address] [place], [address] Mean corpuscular hemoglobin (MCH) determinationOrdered By: Allyson Deleon on 09-30-2024 MCH (RBC) [Entitic mass] 29.7 pg Normal 27.0-32.0 [facility] Comment on above: Performed By: #### L 501.080 #### [facility] [address] [place], [address] Mean corpuscular hemoglobin concentration (MCHC) determinationOrdered By: Allyson Deleon on 09-30-2024 MCHC (RBC) [Mass/Vol] 32.9 g/dL Normal 32-36 [facility] Comment on above: Performed By: #### L 501.080 #### [facility] [address] [facility] [place], [address] Mean platelet volume determi nationOrdered By: Allyson Deleon on 09-30-2024 Platelet mean volume (Bld) [Entitic vol] 9.9 fL Normal 6.2-12.0 [facility] Comment on above: Performed By: #### L 501.080 #### [facility] [address] [place], [address] Platelet countOrdered By: Maged Deleon on 09-30-2024 Platelets (Bld) [#/Vol] 271 10*3/uL Normal 150-450 [facility] Comment on above: Performed By: #### L 501.080 #### [facility] [address] [place], [address] Potassium measurement (mass/ volume)Ordered By: Allyson Deleon on 09-30-2024 Potassium (Unsp spec) [Mass/Vol] 4.1 mmol/L 3.3-5.1 [facility] Serum creatinine measurement (mass/volume)Ordered By: Allyson Deleon on 09-30-2024 Creatinine [Mass/Vol] 1.02 mg/dL Normal 0.70-1.20 [facility] Comment on above: Performed By: #### L 500.4050 #### [facility] [address] [place], [address] Serum globulin measurementOr dered By: Allyson Deleon on 09-30-2024 Globulin (S) [Mass/Vol] 2.1 g/dL Low 2.2-4.2 [facility] Comment on above: Performed By: #### L 500.4050 #### [facility] [address] [place], [address] Serum glucose measurement (m ass/volume)Ordered By: Allyson Deleon on 09-30-2024 Glucose [Mass/Vol] 149 mg/dL High 70-99 [facility] Comment on above: Performed By: #### L 500.4050 #### [facility] [address] [place], [address] Serum or plasma alanine canchola otransferase (ALT) measurementOrdered By: Allyson Deleon on 09-30-2024 ALT [Catalytic activity/Vol] 34 U/L Normal <=34 [facility] Comment on above: Performed By: #### L 500.4050 #### [facility] [address] [place], [address] Serum or plasma albumin martin urement (mass/volume)Ordered By: Allyson Deleon on 09-30-2024 Albumin [Mass/Vol] 3.6 g/dL Normal 3.4-4.8 [facility] Comment on above: Performed By: #### L 500.4050 #### [facility] [address] [place], [address] Serum or plasma albumin/glob ulin mass ratioOrdered By: Allyson Deleon on 09-30-2024 Albumin/Globulin [Mass ratio] 1.8 {ratio} Normal 0.9-2.4 [facility] Comment on above: Performed By: #### L 500.4050 #### [facility] [address] [place], [address] Serum or plasma alkaline rosalio sphatase measurementOrdered By: Allyson Deleon on 09-30-2024 ALP [Catalytic activity/Vol] 38 U/L 35-104 [facility] Serum or plasma calcium martin urement (mass/volume)Ordered By: Allyson Deleon on 09-30-2024 Calcium [Mass/Vol] 8.7 mg/dL Normal 7.6-11.0 [facility] Comment on above: Performed By: #### L 500.4050 #### [facility] [address] [place], [address] Serum or plasma urea nitroge n measurement (mass/volume)Ordered By: Allyson Deleon on 09-30-2024 Urea nitrogen [Mass/Vol] 24 mg/dL High 4-19 [facility] Comment on above: Performed By: #### L 500.4050 #### [facility] [address] [place], [address] Sodium levelOrdered By: Meme Deleon on 09-30-2024 Sodium [Moles/Vol] 138 mmol/L Normal 133-145 [facility] Comment on above: Performed By: #### L 500.4050 #### [facility] [address] [place], [address] Total proteinOrdered By: Alessia Deleon on 09-30-2024 Protein [Mass/Vol] 5.7 g/dL Low 5.9-8.4 [facility] White blood cell (WBC) count Ordered By: Allyson Deleon on 09-30-2024 WBC (Bld) [#/Vol] 16.9 10*3/uL High 4.4-11.0 [facility] Comment on above: Performed By: #### L 501.080 #### [facility] [address] [place], [address] Bedside Glucoseon 09-29-2024 FINGERSTICK GLU 218 mg/dL High 74-106 [facility] Comment on above: Result Comment: SANDRA GEMENT OF PATIENT CARE PER NURSING PROTOCOL Performed By: #### L 501.080 #### [facility] [address] [place], [address] FINGERSTICK GLU 195 mg/dL High 74-106 [facility] Comment on above: Result Comment: SANDRA GEMENT OF PATIENT CARE PER NURSING PROTOCOL Performed By: #### L 501.080 #### [facility] [address] [place], [address] FINGERSTICK GLU 107 mg/dL High 74-106 [facility] Comment on above: Result Comment: SANDRA GEMENT OF PATIENT CARE PER NURSING PROTOCOL Performed By: #### L 501.080 #### [facility] [address] [place], [address] FINGERSTICK GLU 86 mg/dL Normal 74-106 [facility] Comment on above: Result Comment: SANDRA GEMENT OF PATIENT CARE PER NURSING PROTOCOL Performed By: #### L 501.080 #### [facility] [address] [place], [address] Discharge Instructionon 09-04 Discharge Instruction [facility] Medical Records Department [address] [place] [address] Instructions for Home/Discharge Instructions 09/29/24 0925 MR#: [id number] Acct: [id number] Name: FRANCHESKA CROSS Rep #: [id number] : 1955 69 From: Allyson Hercules DO [...] Care Provider: Janey Camp Instructions Print Language: St Helen[place] Discharge Orders/Prescriptions Prescriptions: New docusate sodium [Colace] [...] CC: Dr. Janey Camp MD Signed Normal [facility] Gl[facility] at [facility] deOrdered By: Allyson Deleon on 09-29-2024 Glucose [Mass/Vol] 218 mg/dL [facility] 74-106 [facility] Comment on above: MANAGEMENT OF PATIEN T CARE PER NURSING PROTOCOL MR/POSTOP.ANEon 09-29-2024 MR/POSTOP.[facility] Medical Records Department [address] [place] [address] Anesthesia Postop Eval I 09/29/24 1337 MR#: [id number] Acct: [id number] Name: FRANCHESKA CROSS Rep #: [id number] : 1955 69 From: Marcelo Vick CRNA PCP: Dr. Janey Camp MD Status:REG [facility] Y Race: C Location: [place] [address] Anesthesia: Postop Eval I Current Vital Signs [...] CRNA Cosigner Signature: Date CC: Signed Normal [facility] MR/[id number] 09-29-2024 MR/POSTOPAN2 [facility] Medical Records Department [address] [place] [address] Anesthesia Postop Eval II 09/29/24 1339 MR#: [id number] Acct: [id number] Name: FRANCHESKA CROSS Rep #: [id number] : 1955 69 From: Marcelo Vick CRNA PCP: Dr. Janey Camp MD Status:REG SDC Y Race: C Location: [place] [address] Anesthesia Postop Eval I Sum Postop Eval Completion status Anesthesia document: Postop Eval 1 completed: Yes Anesthesia Postop Eval I Summary Anesthesia Postop Eval I Summary: Anesthesia Postop Eval I: Assessment Summary Airway patent Yes 09/29/24 13:38 [employer] ESTATE LEGAL SECRETARY.MEDM Spontaneous unlabored Yes 09/29/24 13:38 REAL ESTATE LEGAL SECRETARY.MEDM respirations Mental status Awake,Calm 09/29/24 13:38 REAL ESTATE LEGAL SECRETARY.MEDM nausea No 09/29/24 13:38 REAL ESTATE LEGAL SECRETARY.MEDM Vomiting No 09/29/24 13:38 REAL ESTATE LEGAL SECRETARY.MEDM Anesthesia Postop Eval I: Fluid Summary Crystalloid volume administer 1,300 09/29/24 13:38 REAL ESTATE LEGAL SECRETARY.MEDM (ml) Colloids volume administered ( ml) Blood Product volume administered (ml) Total IV fluid infused 1,300 09/29/24 13:38 REAL ESTATE LEGAL SECRETARY.MEDM Anesthesia Postop Eval I: Summary Notes Anesthesia Complication No 09/29/24 13:38 REAL ESTATE LEGAL SECRETARY.MEDM Anesthesia Complication Comment: Post-operative progress note patient tolerated 09/29/24 13:38 REAL ESTATE LEGAL SECRETARY.MEDM well Anesthesia: Postop Eval II Evaluation Mental status: Awake and Calm Pain Level: 2 nausea: No Vomiting: No Complications Anesthesia Complication: No 09/29/24 1339 Date Marcelo Vick REAL ESTATE LEGAL SECRETARY Cosigner Signature: Date CC: Signed Normal [facility] Magnetic resonance imaging r eportOrdered By: Jose Angel Ortiz on 09-29-2024 Study report [facility] Imaging Services [address] [place], [place] [address] Pelvis W/WO Contrast MR#: [id number] Acct: [id number] Name: FRANCHESKA CROSS Rep #: [id number] : 1955 F 69 From: Samanta Ortiz MD PCP: Dr. Janey Camp MD Status: REG CLI Study:Pelvis W/WO Contrast Date of Exam: 09/23/24 Exam# [id number] Ordering Dr: Allyson Bains DO PROCEDURE: PELVIS W/WO CONTRAST, 09/23/2024 REASON FOR EXAM: PLACEMENT OF CERVICAL FIBROID PREOP TECHNIQUE: Multisequence multiplanar MR of the pelvis was performed with and without IV contrast. IV contrast: 18 mL Clariscan COMPARISON: 07/27/2024 FINDINGS: Variable overall mild motion limitation. Some sequences are mild/moderately motion degraded. Note diffusion and coronal small ooqwu-rg-lsya T2 sequences were not performed. Visualized bowel: [...] 3. Additional description as above. Reading Location: [id number] CC: Dr. Janey Camp MD; Dr. Allyson Hercules DO ~ Informatics Nurse: Signed [facility] Operative Reporton Operative Report [facility] Medical Records Department [address] [place] [address] Operative Report 09/29/24 1319 MR#: [id number] Acct: [id number] Name: FRANCHESKA CROSS Rep #: [id number] : 1955 69 From: Allyson Hercules DO PCP: Dr. Janey Camp MD Status:[facility] Location: [place] [address] Problems Associated Problem List Diagnoses (1) Fibroid of cervix: (2) Postmenopausal bleeding: (3) Incisional hernia of anterior abdominal wall without obstruction or gangrene: Multi Select Codes Urinary/Genital Urinary/Genital CPT Codes: 83085 Cystoscopy, [address] TLH+BS/O <250gr uterus and Other Procedure See Report (lysis of adhesions ) Operative Report (Standard) Operative Information Date of Procedure: 09/29/24 Pre-Operative Diagnosis: postmenopausal bleeding, cervical fibroid Post-Operative Diagnosis: postmenopausal bleeding, cervical fibroid, pelvic and abdominal adhesions Surgery/Procedure Performed: total robotic hysterectomy, right salpingo-oophorectomy, lysis of adhesions, cystoscopy assembly manager: Yes Crimper Assembler: Jong Saul Tasks completed by community assistant: Closing, Insert Trochanter, Trocar and Retracting Additional programs assistant?: No Type of Anesthesia: General RN [...] Next a left upper quadrant 8 mm programs assistant port site was placed to be [...] created, tammy (more content not included)... Normal [facility] Surgery Specimen Level Von 0 09-29-2024 Surgery Specimen Level V ------- ---- Patient Age/Sex Location Account Attending Physician ---- HIGHFRANCHESKA SERGE 69/ [facility] [id number] Dr. Allyson Hercules, Alina ---- Specimen: [id number] Received: 09/29/24 Status: MARISA [place] Num: [id number] Spec Type: UTERUS Subm Dr: Dr. Allyson Hercules, DO [facility] OPERATION: ERAS, laparoscopic total robotic hysterectomy PRE-OP [...] Patient Age/Sex Location Account Attending Physician ---- [facility],FRANCHESKA VALENTINE 69/F [facility] [id number] Alina Simon ---- polyp which is confined [...] No firm or papillary areas are identified. Rn Transition sections:A1. Anterior cervix with anterior serosal shaveA2. Posterior cervix with posterior serosal shave (including posterior subserosal nodule)A3. Anterior endomyometrium with nodules (superficial x 2)A4. Posterior endomyometrium with nodules (superficial x 2)A5. Possible polyp of posterior endometrium with protruding nodule at paracervical marginA6-7. Separate nodule and soft tissueA8 (more content not included)... Normal [facility] Comment on above: Performed By: #### L 501.080 #### [facility] Laboratory [address] [place], [address] 12 Lead EKGon 09-23-2024 12 Lead EKG [facility] Cardiovascular Services [address] [place] [address] 12 Lead EKG 09/23/24 1058 MR#: [id number] Acct: [id number] Name: FRANCHESKA CROSS Rep #: [id number] : 1955 69 From: Maurice Mac MD Attending Dr: Dr. Allyson Hercules DO Statu s: PRE SDC Ordering Dr: Allyson Hercules DO Date: 5 Location: [facility] Sex: F C Admitted: Test Reason : [...] Abnormal ECG Confirmed by CHRISTIAN GARCIA, MAURICE ([id number]), health editor HANNA GARZA ([id number]) on 09/23/2024 1:01:18 PM Referred By: Allyson Hercules Confirmed By: MAURICE MAC MD 09/23/24 1301 Date Maurice Mac MD CC: Dr. Janey Camp MD; Dr. Allyson Hercules DO Signed Normal [facility] Absolute lymphocyte countOrd ered By: Allyson Deleon on 09-23-2024 Lymphocytes Auto (Unsp spec) [#/Vol] 3.69 10*3/uL 0.83-4.51 [facility] Absolute neutrophil countOrd ered By: Allyson Deleon on 09-23-2024 Neutrophils (Bld) [#/Vol] 5.9 10*3/uL 2.0-7.7 [facility] Anion gap in Serum or Plasma Ordered By: Allyson Deleon on 09-23-2024 Anion gap [Moles/Vol] 12 mmol/L 09-17 [facility] Automated lymphocyte count a s percentage of total leukocytesOrdered By: Allyson Deleon on 09-23-2024 Lymphocytes/100 WBC Auto (Unsp spec) 34.6 % [facility] BUN/creatinine ratioOrdered By: Allyson Deleon on 09-23-2024 Urea nitrogen/Creatinine [Mass ratio] 22.1 mg/mg High - [facility] Basophil percentageOrdered B y: Allyson Deleon on 09-23-2024 Basophils/100 WBC (Bld) 0.6 % 0-1 [facility] Bilirubin, totalOrdered By: Allyson Deleon on 09-23-2024 Bilirubin [Mass/Vol] 0.53 mg/dL 0.00-1.30 [facility] CBC W/Diff, Automatedon 09-04 Absolute Lymph 3.69 X10 3/uL Normal 0.83-4.51 [facility] Comment on above: Performed By: #### L 100.0100 #### [facility] Laboratory [address] [place], [address] Absolute Neut 5.9 X10 3/uL Normal 2.0-7.7 [facility] Comment on above: Performed By: #### L 100.0100 #### [facility] [address] [place], [address] Basophils/100 WBC (Bld) 0.6 % Normal 0-1 [facility] Comment on above: Performed By: #### L 100.0100 #### [facility] [address] [place], [address] Eosinophils/100 WBC (Bld) 3.1 % Normal 0-5 [facility] Comment on above: Performed By: #### L 100.0100 #### [facility] Laboratory [address] [place], [address] Erythrocyte distribution width (RBC) [Ratio] 14.2 % Normal 11.6-14.6 [facility] Comment on above: Performed By: #### L 100.0100 #### [facility] [address] [place], [address] Hematocrit (Bld) [Volume fraction] 40.0 % Normal 37-47 [facility] Comment on above: Performed By: #### L 100.0100 #### [facility] [address] [place], [address] Hemoglobin (Bld) [Mass/Vol] 13.0 g/dL Normal 12.0-15.0 [facility] Comment on above: Performed By: #### L 100.0100 #### [facility] [address] [place], [address] IG% 0.400 Normal 0.0-0.9 [facility] Comment on above: Result Comment: IG% - Immature Granulocytes (promyelocytes, myelocytes and metamyelocytes) > 1% indicates that a LEFT SHIFT is Present. Performed By: #### L 100.0100 #### [facility] [address] [place], [address] Lymphocytes/100 WBC (Bld) 34.6 % Normal 19-41 [facility] Comment on above: Performed By: #### L 100.0100 #### [facility] [address] [place], [address] MCH (RBC) [Entitic mass] 29.7 pg Normal 27.0-32.0 [facility] Comment on above: Performed By: #### L 100.0100 #### [facility] [address] [place], [address] MCHC (RBC) [Mass/Vol] 32.5 g/dL Normal 32-36 [facility] Comment on above: Performed By: #### L 100.0100 #### [facility] [address] [place], [address] MCV (RBC) [Entitic vol] 91.3 fL Normal 81-99 [facility] Comment on above: Performed By: #### L 100.0100 #### [facility] [address] [place], [address] Monocytes/100 WBC (Bld) 6.0 % Normal 0-10 [facility] Comment on above: Performed By: #### L 100.0100 #### [facility] [address] [place], [address] Neutrophils/100 WBC (Bld) 55.3 % Normal 47-70 [facility] Comment on above: Performed By: #### L 100.0100 #### [facility] [address] [place], [address] Nucleated RBC (Bld) [#/Vol] 0 10*3/uL Normal 0-5 [facility] Comment on above: Performed By: #### L 100.0100 #### [facility] [address] [place], [address] Platelet mean volume (Bld) [Entitic vol] 10.0 fL Normal 6.2-12.0 [facility] Comment on above: Performed By: #### L 100.0100 #### [facility] [address] [place], [address] Platelets (Bld) [#/Vol] 333 10*3/uL Normal 150-450 [facility] Comment on above: Performed By: #### L 100.0100 #### [facility] [address] [place], [address] RBC (Bld) [#/Vol] 4.38 10*6/uL Normal 4.2-5.4 [facility] Comment on above: Performed By: #### L 100.0100 #### [facility] [address] [place], [address] RDW SD 47.6 fl High 35.1-43.9 [facility] Comment on above: Performed By: #### L 100.0100 #### [facility] [address] [place], [address] WBC (Bld) [#/Vol] 10.7 10*3/uL Normal 4.4-11.0 [facility] Comment on above: Performed By: #### L 100.0100 #### [facility] [address] [place], [address] Carbon dioxide, total [Moles /volume] in Central venous bloodOrdered By: Allyson Deleon on 09-23-2024 CO2 [Moles/Vol] 22.3 mmol/L 21.0-32.0 [facility] Chloride assayOrdered By: Maged Deleon on 09-23-2024 Chloride [Moles/Vol] 108 mmol/L 98-108 [facility] Comprehensive Metabolic Prof ilon 09-23-2024 Albumin [Mass/Vol] 4.2 g/dL Normal 3.4-4.8 [facility] Comment on above: Performed By: #### L 501.080 #### [facility] [address] [place], [address] Albumin/Globulin [Mass ratio] 1.6 {ratio} Normal 0.9-2.4 [facility] Comment on above: Performed By: #### L 501.080 #### [facility] [address] [place], [address] ALK PHOS 48 U/L Normal 35-104 [facility] Comment on above: Performed By: #### L 501.080 #### [facility] [address] [place], [address] ALT [Catalytic activity/Vol] 6 U/L Normal <=34 [facility] Comment on above: Performed By: #### L 501.080 #### [facility] [address] [place], [address] AST [Catalytic activity/Vol] 12 U/L Normal <=31 [facility] Comment on above: Performed By: #### L 501.080 #### [facility] [address] [place], [address] Bilirubin [Mass/Vol] 0.53 mg/dL Normal 0.00-1.30 [facility] Comment on above: Performed By: #### L 501.080 #### [facility] [address] [place], [address] BUN/CRE 22.1 RATIO High 10-20 [facility] Comment on above: Performed By: #### L 501.080 #### [facility] [address] [place], [address] Calcium [Mass/Vol] 9.5 mg/dL Normal 7.6-11.0 [facility] Comment on above: Performed By: #### L 501.080 #### [facility] [address] [place], [address] Chloride [Moles/Vol] 108 mmol/L Normal 98-108 [facility] Comment on above: Performed By: #### L 501.080 #### [facility] [address] [place], [address] CO2 [Moles/Vol] 22.3 mmol/L Normal 21.0-32.0 [facility] Comment on above: Performed By: #### L 501.080 #### [facility] [address] [place], [address] Creatinine [Mass/Vol] 1.10 mg/dL Normal 0.70-1.20 [facility] Comment on above: Performed By: #### L 501.080 #### [facility] [address] [place], [address] GAP 12 Normal 5-15 [facility] Comment on above: Performed By: #### L 501.080 #### [facility] [address] [place], [address] GFR/1.73 sq M.predicted among non-blacks MDRD (S/P/Bld) [Vol rate/Area] 54 mL/min/{1.73_m2} Low >60 [facility] Comment on above: Result Comment: mL/m in/1.73m2 CKD-EPI Creatinine Equation (2020) Performed By: #### L 501.080 #### [facility] [address] [place], [address] Globulin (S) [Mass/Vol] 2.6 g/dL Normal 2.2-4.2 [facility] Comment on above: Performed By: #### L 501.080 #### [facility] [address] [place], [address] Glucose [Mass/Vol] 105 mg/dL High 70-99 [facility] Comment on above: Performed By: #### L 501.080 #### [facility] [address] [place], [address] Potassium [Moles/Vol] 3.9 mmol/L Normal 3.3-5.1 [facility] Comment on above: Performed By: #### L 501.080 #### [facility] [address] [place], [address] Sodium [Moles/Vol] 142 mmol/L Normal 133-145 [facility] Comment on above: Performed By: #### L 501.080 #### [facility] [address] [place], [address] T PROT 6.8 g/dL Normal 5.9-8.4 [facility] Comment on above: Performed By: #### L 501.080 #### [facility] [address] [place], [place], [address] Urea nitrogen [Mass/Vol] 24 mg/dL High 4-19 [facility] Comment on above: Performed By: #### L 501.080 #### [facility] [address] [place], [place], [address] Electrocardiogram reportOrde red By: Maurice Mac on 09-23-2024 EKG study [facility] Cardiovascular Services [address] [place] [address] 12 Lead EKG 09/23/24 1058 MR#: [id number] Acct: [id number] Name: FRANCHESKA CROSS Rep #:[id number] : 1955 69 From: Maurice Mac MD Attending Dr: Dr. Allyson Hercules DO Status: PRE [facility] Ordering Dr: Allyson Hercules DO D ate: 09/23/24 Location: [facility] Sex: F C Admitted: Test Reason : [...] Abnormal ECG Confirmed by MAURICE MAC MD ([id number]), health editor HANNA GARZA ([id number]) on 51:01:18 PM Referred By: Allyson Hercules Confirmed By: MAURICE MAC MD 09/23/24 1303 Date _ Maurice Mac MD CC: Dr. Janey Camp MD; Dr. Allyson Hercules DO ~ Signed [facility] Other Phone: Eosinophil percentageOrdered By: Allyson Deleon on 09-23-2024 Eosinophils/100 WBC (Bld) 3.1 % 0-5 [facility] Erythrocyte distribution wid th ratioOrdered By: Allyson Deleon on 09-23-2024 Erythrocyte distribution width (RBC) [Ratio] 14.2 % 11.6-14.6 [facility] Erythrocyte distribution wid th standard deviationOrdered By: Allyson Deleon on 09-23-2024 Erythrocyte distribution width (RBC) [Ratio] 47.6 fl High 35.1-43.9 [facility] Glomerular filtration rate ( GFR) estimation/1.73 sq m using serum, plasma, or whole bOrdered By: Allyson Deleon on 09-23-2024 GFR/1.73 sq M.predicted among non-blacks MDRD (S/P/Bld) [Vol rate/Area] 54 mL/min/{1.73_m2} Low >60 [facility] Comment on above: mL/min/1.73m2 CKD-EP I Creatinine Equation (2020) Hematocrit Auto (Bld) [Volum e fraction]Ordered By: Allyson Deleon on 09-23-2024 Hematocrit (Bld) [Volume fraction] 40.0 % 37-47 [facility] Hemoglobin A1con 09-23-2024 HbA1c (Bld) [Mass fraction] 6.2 % High <=5.6 [facility] Comment on above: Result Comment: Norm al < 5.7 % Prediabetic 5.7 - 6.4 % Diabetic >or= 6.5 % Please note range changes. Performed By: #### L 501.080 #### [facility] [address] [place], [place], [id number] Hemoglobin A1c percentageOrd ered By: Allyson Deleon on 09-23-2024 HbA1c (Bld) [Mass fraction] 6.2 % High <5.7 [facility] Comment on above: Normal < 5.7 % Predi abetic 5.7 - 6.4 % Diabetic >or= 6.5 % Please note range changes. Hemoglobin measurementOrdere d By: Allyson Deleon on 09-23-2024 Hemoglobin (Bld) [Mass/Vol] 13.0 g/dL 12.0-15.0 [facility] Immature granulocytes/100 WB C Auto (Bld)Ordered By: Allyson Deleon on 09-23-2024 Immature granulocytes/100 WBC (Bld) 0.400 % 0.0-0.9 [facility] Comment on above: IG% - Immature Granu locytes (promyelocytes, myelocytes and metamyelocytes) > 1% indicates that a LEFT SHIFT is Present. Laboratory - Chemistry and C hemistry - challengeOrdered By: Allyson Deleon on 09-23-2024 AST [Catalytic activity/Vol] 12 U/L <32 [facility] MCV (mean corpuscular volume ) determinationOrdered By: Allyson Deleon on 09-23-2024 MCV (RBC) [Entitic vol] 91.3 fL 81-99 [facility] MR/PAT.ANEon 09-23-2024 MR/PAT.ANE [facility] Medical Records Department [address] [place] [address] PAT - Anesthesia 09/23/24 1309 MR#: [id number] Acct: [id number] Name: FRANCHESKA CROSS Rep #: [id number] : 1955 69 From: Gamaliel Moya MD PCP: Dr. Janey Camp MD Status:PRE [facility] Y Race: C Location: [facility] Pre-Assessment Diagnosis/Proposed Procedure Planned Operative Procedure(s): Lap Total Robotic Hysterectomy BSO, Cystoscopy Anesthesia History Anesthesia History - plate cleaner: Anesthesia History - plate cleaner Hx Hospitalization No 09/15/24 14:08 Any Problems [...] take am of surgery PONV PONV - plate cleaner: PONV - plate cleaner Female Yes 09/15/24 14:08 HX of Motion [...] 08/14/24 13:54 Respiratory Assessment Respiratory Assessment - plate cleaner: Respiratory Tract Infection Hx - plate cleaner Hx Respiratory Tract Infection No 09/15/24 14:08 STOP Sleep Apnea STOP Sleep Apnea - plate cleaner: STOP Sleep Apnea - plate cleaner Hx Hypertension Yes 09/15/24 14:08 Hx Sleep [...] Tobacco Use History Tobacco Use History - plate cleaner: Tobacco Use History - plate cleaner Tobacco Use Smoking Status Never smoker 09/15/24 14:08 Hx Tobacco Use No 09/15/24 14:08 Years Smoking Packs Smoked per Day Smoking Cessation Date was within the last 15 years Hx Smoking Cessation Date Hx Smoking Cessation Counseling Hematologic Medial History Hematologic Hx - plate cleaner: Hematologic Medical Hx - vest presser Hx of Blood Transfusion No 09/15/24 14:08 Hx of Transfusion in last 3 No 09/15/24 14:08 Months Date of Last Transfusion (if within last 3 months) Ever experience any problems No 09/15/24 14:08 with transfusion(s)? Specify any problems Hx of Preganancy in last 3 No 09/15/24 14:08 Months Nurse Filling Out Transfusion [facility] 09/15/24 14:08 Questions: Date: 09/15/24 09/15/24 14:08 Time: 14:14 09/15/24 14:08 Patient unable to answer at this time (ie. confused, unrespo /Reproduction History /Reproductive History - plate cleaner: /Reproductive Hx- plate cleaner Hx Now No 09/15/24 14:08 Gestational Age (in weeks): EDC: Hx Hx Para Hx Section SAB No 09/15/24 14:08 [facility] Medical History Wears glasses Diabetes Ambulates with [...] wn History (more content not included)... Normal [facility] Magnesiumon 09-23-2024 Magnesium [Mass/Vol] 2.1 mg/dL Normal 1.5-2.2 [facility] Comment on above: Performed By: #### L 501.080 #### [facility] [address] [place], [address] Magnesium measurement (mass/ volume)Ordered By: Allyson Deleon on 09-23-2024 Magnesium (Unsp spec) [Mass/Vol] 2.1 mg/dL 1.5-2.2 [facility] Mean corpuscular hemoglobin (MCH) determinationOrdered By: Allyson Deleon on 09-23-2024 MCH (RBC) [Entitic mass] 29.7 pg 27.0-32.0 [facility] Mean corpuscular hemoglobin concentration (MCHC) determinationOrdered By: Allyson Deleon on 09-23-2024 MCHC (RBC) [Mass/Vol] 32.5 g/dL 32-36 [facility] Mean platelet volume determi nationOrdered By: Allyson Deleon on 09-23-2024 Platelet mean volume (Bld) [Entitic vol] 10.0 fL 6.2-12.0 [facility] Monocyte percentageOrdered B y: Allyson Deleon on 09-23-2024 Monocytes/100 WBC (Bld) 6.0 % 0-10 [facility] Neutrophil percentageOrdered By: Allyson Deleon on 09-23-2024 Neutrophils/100 WBC (Bld) 55.3 % 47-70 [facility] Nucleated red blood cell per centageOrdered By: Allyson Deleon on 09-23-2024 Nucleated RBC/100 WBC (Bld) [Ratio] 0 % 0-5 [facility] Executive Legal Secretary Office Visit Reporton 09-23-2024 Executive Legal Secretary Office Visit Report [facility] [address], [address] [place] [address] OFFICE VISIT Date of Service: 09/23/24 MR#: [id number] Acct: [id number] Name: FRANCHESKA CROSS Rep #: [id number] : 1955 Provider: Dr. Allyson Nino, Age/Sex: 69/F Location[place] [facility] Status: Signed Intake Vital Signs 08/14/24 13:54 09/23/24 09:37 09/23/24 09:38 Height 5 ft 6 in 5 ft 6 in 5 ft 6 in Weight: 196 lb 198 lb 4 oz BMI 31.6 32.0 BP 116/70 113/75 Intake Visit Reasons: TRH BSO cyst [employer] Required: No Is patient in pain?: No [...] menopausal: Yes Patient : No : [facility] History Wears glasses Diabetes Ambulates with [...] effort Skin (more content not included)... Normal [facility] Pelvis W/WO Contraston 09-23 Pelvis W/WO Contrast [facility] Imaging Services [address] [place] [address] Pelvis W/WO Contrast MR#: [id number] Acct: [id number] Name: FRANCHESKA CROSS Rep #: [id number] : 1955 F 69 From: Jose Angel Ortiz MD PCP: Dr. Janey Camp MD Status: REG CLI Study: Pelvis W/WO Contrast Date of Exam: 09/23/24 Exam# [id number] Ordering Dr: Allyson Hercules DO PROCEDURE: PELVIS W/WO CONTRAST, 09/23/2024 REASON FOR EXAM: PLACEMENT OF CERVICAL FIBROID PREOP TECHNIQUE: Multisequence multiplanar MR of the pelvis was performed with and without IV contrast. IV contrast: 18 mL Clariscan COMPARISON: 07/27/2024 FINDINGS: Variable overall mild motion limitation. Some sequences are mild/moderately motion degraded. Note diffusion and coronal small ximya-ow-[id number] T2 sequences were not performed. Visualized bowel: [...] 3. Additional description as above. Reading Location: [id number] CC: Dr. Janey Camp MD; Dr. Allyson Hercules DO Informatics Nurse: Signed Normal [facility] Platelet countOrdered By: Maged Deleon on 09-23-2024 Platelets (Bld) [#/Vol] 333 10*3/uL 150-450 [facility] Potassium measurement (mass/ volume)Ordered By: Allyson Deleon on 09-23-2024 Potassium (Unsp spec) [Mass/Vol] 3.9 mmol/L 3.3-5.1 [facility] RBC Auto (Bld) [#/Vol]Ordere d By: Allyson Deleon on 09-23-2024 RBC (Bld) [#/Vol] 4.38 10*6/uL 4.2-5.4 [facility] Serum creatinine measurement (mass/volume)Ordered By: Allyson Deleon on 09-23-2024 Creatinine [Mass/Vol] 1.10 mg/dL 0.70-1.20 [facility] Serum globulin measurementOr dered By: Allyson Deleon on 09-23-2024 Globulin (S) [Mass/Vol] 2.6 g/dL 2.2-4.2 [facility] Serum glucose measurement (m ass/volume)Ordered By: Allyson Deleon on 09-23-2024 Glucose [Mass/Vol] 105 mg/dL High 70-99 [facility] Serum or plasma alanine canchola otransferase (ALT) measurementOrdered By: Allyson Deleon on 09-23-2024 ALT [Catalytic activity/Vol] 6 U/L <35 [facility] Serum or plasma albumin martin urement (mass/volume)Ordered By: Allyson Deleon on 09-23-2024 Albumin [Mass/Vol] 4.2 g/dL 3.4-4.8 [facility] Serum or plasma albumin/glob ulin mass ratioOrdered By: Allyson Deleon on 09-23-2024 Albumin/Globulin [Mass ratio] 1.6 {ratio} 0.9-2.4 [facility] Serum or plasma alkaline rosalio sphatase measurementOrdered By: Allyson Deleon on 09-23-2024 ALP [Catalytic activity/Vol] 48 U/L 35-104 [facility] Serum or plasma calcium martin urement (mass/volume)Ordered By: Allyson Deleon on 09-23-2024 Calcium [Mass/Vol] 9.5 mg/dL 7.6-11.0 [facility] Serum or plasma urea nitroge n measurement (mass/volume)Ordered By: Allyson Deleon on 09-23-2024 Urea nitrogen [Mass/Vol] 24 mg/dL High 4-19 [facility] Sodium levelOrdered By: Meme Deleon on 09-23-2024 Sodium [Moles/Vol] 142 mmol/L 133-145 [facility] Total proteinOrdered By: Alessia Deleon on 09-23-2024 Protein [Mass/Vol] 6.8 g/dL 5.9-8.4 [facility] Type AND Screen - PAT ONLYon 09-23-2024 ABO and Rh group Nom (Bld) Blood group O Rh(D) positive Normal [facility] Comment on above: Order Comment: Surge ry Date: 09/29/24Reason for Laboratory Test [id number] Performed By: #### L 501.080 #### [facility] [address] [place], [place], [id number] White blood cell (WBC) count Ordered By: Allyson Deleon on 09-23-2024 WBC (Bld) [#/Vol] 10.7 10*3/uL 4.4-11.0 [facility] Absolute lymphocyte countOrd ered By: Selina Beal on 08-05-2024 Lymphocytes Auto (Unsp spec) [#/Vol] 3.10 10*3/uL 0.83-4.51 [facility] Absolute neutrophil countOrd ered By: Selina Beal on 08-05-2024 Neutrophils (Bld) [#/Vol] 5.9 10*3/uL 2.0-7.7 [facility] Automated lymphocyte count a s percentage of total leukocytesOrdered By: Selina Beal on 08-05-2024 Lymphocytes/100 WBC Auto (Unsp spec) 31.8 % 19-41 [facility] Basophil percentageOrdered B y: Selina Beal on 08-05-2024 Basophils/100 WBC (Bld) 0.6 % 0-1 [facility] CBC W/Diff, Automatedon Absolute Lymph 3.10 X10 3/uL Normal 0.83-4.51 [facility] Comment on above: Performed By: #### L 100.0100 #### [facility] [address] [place], [address] Absolute Neut 5.9 X10 3/uL Normal 2.0-7.7 [facility] Comment on above: Performed By: #### L 100.0100 #### [facility] [address] [place], [address] Basophils/100 WBC (Bld) 0.6 % Normal 0-1 [facility] Comment on above: Performed By: #### L 100.0100 #### [facility] [address] [place], [address] Eosinophils/100 WBC (Bld) 2.5 % Normal 0-5 [facility] Comment on above: Performed By: #### L 100.0100 #### [facility] [address] [place], [address] Erythrocyte distribution width (RBC) [Ratio] 14.5 % Normal 11.6-14.6 [facility] Comment on above: Performed By: #### L 100.0100 #### [facility] [address] [place], [address] Hematocrit (Bld) [Volume fraction] 37.3 % Normal 37-47 [facility] Comment on above: Performed By: #### L 100.0100 #### [facility] [address] [place], [address] Hemoglobin (Bld) [Mass/Vol] 12.0 g/dL Normal 12.0-15.0 [facility] Comment on above: Performed By: #### L 100.0100 #### [facility] [address] [place], [address] IG% 0.300 Normal 0.0-0.9 [facility] Comment on above: Result Comment: IG% - Immature Granulocytes (promyelocytes, myelocytes and metamyelocytes) > 1% indicates that a LEFT SHIFT is Present. Performed By: #### L 100.0100 #### [facility] [address] [place], [address] Lymphocytes/100 WBC (Bld) 31.8 % Normal 19-41 [facility] Comment on above: Performed By: #### L 100.0100 #### [facility] [address] [place], [address] MCH (RBC) [Entitic mass] 29.2 pg Normal 27.0-32.0 [facility] Comment on above: Performed By: #### L 100.0100 #### [facility] [address] [place], [address] MCHC (RBC) [Mass/Vol] 32.2 g/dL Normal 32-36 [facility] Comment on above: Performed By: #### L 100.0100 #### [facility] [address] [place], [address] MCV (RBC) [Entitic vol] 90.8 fL Normal 81-99 [facility] Comment on above: Performed By: #### L 100.0100 #### [facility] [address] [place], [address] Monocytes/100 WBC (Bld) 4.1 % Normal 0-10 [facility] Comment on above: Performed By: #### L 100.0100 #### [facility] [address] [place], [address] Neutrophils/100 WBC (Bld) 60.7 % Normal 47-70 [facility] Comment on above: Performed By: #### L 100.0100 #### [facility] [address] [place], [address] Nucleated RBC (Bld) [#/Vol] 0 10*3/uL Normal 0-5 [facility] Comment on above: Performed By: #### L 100.0100 #### [facility] [address] [place], [address] Platelet mean volume (Bld) [Entitic vol] 10.0 fL Normal 6.2-12.0 [facility] Comment on above: Performed By: #### L 100.0100 #### [facility] [address] [place], [address] Platelets (Bld) [#/Vol] 328 10*3/uL Normal 150-450 [facility] Comment on above: Performed By: #### L 100.0100 #### [facility] [address] [place], [address] RBC (Bld) [#/Vol] 4.11 10*6/uL Low 4.2-5.4 [facility] Comment on above: Performed By: #### L 100.0100 #### [facility] [address] [place], [address] RDW SD 47.6 fl High 35.1-43.9 [facility] Comment on above: Performed By: #### L 100.0100 #### [facility] [address] [place], [address] WBC (Bld) [#/Vol] 9.7 10*3/uL Normal 4.4-11.0 [facility] Comment on above: Performed By: #### L 100.0100 #### [facility] [address] [place], [address] Eosinophil percentageOrdered By: Selina Beal on 08-05-2024 Eosinophils/100 WBC (Bld) 2.5 % 0-5 [facility] Erythrocyte distribution wid th (RBC) [Ratio]Ordered By: Selina Beal on 08-05-2024 Erythrocyte distribution width (RBC) [Entitic vol] 47.6 fL High 35.1-43.9 [facility] Erythrocyte distribution wid th ratioOrdered By: Selina Beal on 08-05-2024 Erythrocyte distribution width (RBC) [Ratio] 14.5 % 11.6-14.6 [facility] Erythrocyte distribution wid th standard deviationOrdered By: Selina Beal on 08-05-2024 Erythrocyte distribution width (RBC) [Ratio] 47.6 fl High 35.1-43.9 [facility] Hematocrit Auto (Bld) [Volum e fraction]Ordered By: Selina Beal on 08-05-2024 Hematocrit (Bld) [Volume fraction] 37.3 % 37-47 [facility] Hemoglobin measurementOrdere d By: Selina Beal on 08-05-2024 Hemoglobin (Bld) [Mass/Vol] 12.0 g/dL 12.0-15.0 [facility] Immature granulocytes/100 WB C Auto (Bld)Ordered By: Selina Beal on 08-05-2024 Immature granulocytes/100 WBC (Bld) 0.300 % 0.0-0.9 [facility] Comment on above: IG% - Immature Granu locytes (promyelocytes, myelocytes and metamyelocytes) > 1% indicates that a LEFT SHIFT is Present. Lymphocytes Auto (Unsp spec) [#/Vol]Ordered By: Selina Beal on 08-05-2024 Lymphocytes (Bld) [#/Vol] 3.10 10*3/uL 0.83-4.51 [facility] Lymphocytes/100 WBC Auto (Un sp spec)Ordered By: Selina Beal on 08-05-2024 Lymphocytes/100 WBC (Bld) 31.8 % 19-41 [facility] MCV (mean corpuscular volume ) determinationOrdered By: Selina Beal on 08-05-2024 MCV (RBC) [Entitic vol] 90.8 fL 81-99 [facility] Mean corpuscular hemoglobin (MCH) determinationOrdered By: Selina Beal on 08-05-2024 MCH (RBC) [Entitic mass] 29.2 pg 27.0-32.0 [facility] Mean corpuscular hemoglobin concentration (MCHC) determinationOrdered By: Selina Beal on 08-05-2024 MCHC (RBC) [Mass/Vol] 32.2 g/dL 32-36 [facility] Mean platelet volume determi nationOrdered By: Selina Beal on 08-05-2024 Platelet mean volume (Bld) [Entitic vol] 10.0 fL 6.2-12.0 [facility] Monocyte percentageOrdered B y: Selina Beal on 08-05-2024 Monocytes/100 WBC (Bld) 4.1 % 0-10 [facility] Neutrophil percentageOrdered By: Selina Beal on 08-05-2024 Neutrophils/100 WBC (Bld) 60.7 % 47-70 [facility] Nucleated red blood cell per centageOrdered By: Selina Beal on 08-05-2024 Nucleated RBC/100 WBC (Bld) [Ratio] 0 % 0-5 [facility] Platelet countOrdered By: Colby Beal on 08-05-2024 Platelets (Bld) [#/Vol] 328 10*3/uL 150-450 [facility] RBC Auto (Bld) [#/Vol]Ordere d By: Selina Beal on 08-05-2024 RBC (Bld) [#/Vol] 4.11 10*6/uL Low 4.2-5.4 [facility] White blood cell (WBC) count Ordered By: Selina Beal on 08-05-2024 WBC (Bld) [#/Vol] 9.7 10*3/uL 4.4-11.0 [facility] Transvaginal Non-on 07-27-2024 Transvaginal Non- [facility] Imaging Services [address] [place] [address] Transvaginal Non- MR#: [id number] Acct: [id number] Name: FRANCHESKA CROSS Rep #: [id number] : 1955 F 68 From: Jose Angel Hyman MD PCP: Dr. Janey Camp MD Status: DEP CLI Study: Transvaginal Non- Date of Exam: Exam# [id number] Ordering Dr: Selina Beal ADDENDUM by Dr. Jose Angel Hyman MD on 08/06/24 at 0928 Endometrial thickness is 3 mm. [facility] 08/06/24 0929 Date cc: Dr. Janey Camp [...] Non- IMPRESSION: Fibroid as above. Reading Location: [facility] CC: Dr. Janey Camp MD; Dr. Selina Beal MD Informatics Nurse: Signed Normal [facility] PAP IG HPV APTIMA 16/18,45on 07-24-2024 ADEQ Comment Normal . [facility] Comment on above: Order Comment: Speci men Comment: [id number] Specimen Comment: Source.............Cervix Specimen Comment: Other..............Post Menopausal Specimen Comment: No. of containers..01 ThinPrep Vial Result Comment: Sati sfactory for evaluation. Endocervical and/or squamous metaplastic cells (endocervical component) are present. Performed By: #### L 7400.0280 #### [facility] Laboratory [address] [place], [place], [id number] COMM . Normal . [facility] Comment on above: Order Comment: Speci men Comment: [id number] Specimen Comment: Source.............Cervix Specimen Comment: Other..............Post Menopausal Specimen Comment: No. of containers..01 ThinPrep Vial Performed By: #### L 7400.0280 #### [facility] [address] [place], [address] COMMENT Comment Normal . [facility] Comment on above: Order Comment: Speci men Comment: [id number] Specimen Comment: Source.............Cervix Specimen Comment: Other..............Post Menopausal Specimen Comment: No. of containers..01 ThinPrep Vial Result Comment: This liquid based ThinPrep(R) pap test was screened with the use of an image guided system. Performed By: #### L 7400.0280 #### [facility] [address] [place], [place], [id number] DIAG Comment Normal . [facility] Comment on above: Order Comment: Speci men Comment: [id number] Specimen Comment: Source.............Cervix Specimen Comment: Other..............Post Menopausal Specimen Comment: No. of containers..01 ThinPrep Vial Result Comment: NEGA TIVE FOR INTRAEPITHELIAL LESION OR MALIGNANCY. CELLULAR CHANGES ASSOCIATED WITH ATROPHY ARE PRESENT. Performed By: #### L 7400.0280 #### [facility] [address] [place], [place], [address] HPV APTIMA, HR Negative Normal Negative [facility] Comment on above: Order Comment: Speci men Comment: [id number] Specimen Comment: Source.............Cervix Specimen Comment: Other..............Post Menopausal Specimen Comment: No. of containers..01 ThinPrep Vial Result Comment: This nucleic acid amplification test detects fourteen high- risk HPV types (16,18,31,33,35,39,45,51,52,56,58,59,66,68) without differentiation. Performed By: #### L 7400.0280 #### [facility] [address] [place], [address] HPV Cecilia Rfx Comment Normal . [facility] Comment on above: Order Comment: Speci men Comment: [id number] Specimen Comment: Source.............Cervix Specimen Comment: Other..............Post Menopausal Specimen Comment: No. of containers..01 ThinPrep Vial Result Comment: Crit edgar not met, HPV Genotype not performed. Performed at: - [address] [id number] Installer Metal Flooring: Amber Boles MD, Phone: [phone] Performed at: = - [address] [id number] Install[employer] Metal Flooring: Amber Boles MD, Phone: [phone] Performed By: #### L 7400.0280 #### [facility] [address] [place], [address] PAPSMR Comment Normal . [facility] Comment on above: Order Comment: Speci men Comment: [id number] Specimen Comment: Source.............Cervix Specimen Comment: Other..............Post Menopausal [...] occur. Performed By: #### L 7400.0280 #### [facility] [address] [place], [place], [address] PERFORM Comment Normal . [facility] Comment on above: Order Comment: Speci men Comment: [id number] Specimen Comment: Source.............Cervix Specimen Comment: Other..............Post Menopausal Specimen Comment: No. of containers..01 ThinPrep Vial Result Comment: Bee Pierre, Sales Technician (ASCP) Performed By: #### L 7400.0280 #### [facility] [address] [place], [place], [address] Surgical pathology reportOrd ered By: Terri Dykes on 07-24-2024 Surgical pathology study [facility] Cervical or vaginal specimen microscopic examination by liquid based cytology (reportOrdered By: Selina Beal on 07-22-2024 Cytology report Cyto stain.thin prep Doc (Cvx/Vag) Comment . [facility] Comment on above: Criteria not met, HP V Genotype not performed.Performed at: [address] [id number] Director: Amber Boles MD, Phone: [phone] at: =[address] [id number] Director: Amber Boles MD, Phone: [phone] Cervical or vagninal specime n microscopic examination by cytology stain (reported asOrdered By: Selina Beal on 07-22-2024 Cytology report Cyto stain Doc (Cvx/Vag) Comment . [facility] Comment on above: The Pap smear is a s creening test designed to aid in thedetection of premalignant and malignant conditions of theuterine cervix. It is not a diagnostic procedure andshould not be used as the sole means of detecting cervicalcancer. Both false-positive and false-negative reports dooccur. Acoustical Logging Engineer Cyto stain Nom (C vx/Vag) [ID]Ordered By: Selina Beal on 07-22-2024 Pap Smear Performed By Comment . [facility] Comment on above: Adrian frye, Sales Technician (ASCP) Cytology report Cyto stain D oc (Cvx/Vag)Ordered By: Selina Beal on 07-22-2024 Thin Prep Pap Smear Comment . [facility] Comment on above: The Pap smear is [...] 07-22-2024 HPV Genotype Special Info Comment . [facility] Comment on above: Criteria not met, HP V Genotype not performed.Performed at: - [address] [id number] Director: Amber Boles MD, Phone: [phone] at: =[facility] [address] [id number] Director: Amber Boles MD, Phone: [phone] Detection in cervical specim en of any of human papilloma virus (HPV) 16, 18, 31, 33,Ordered By: Selina Beal on 07-22-2024 HPV 16+18+31+33+35+39+45+51+ 52+56+58+59+66+68 DNA Probe+sig amp Ql (Cvx) Negative Negative [facility] Comment on above: This nucleic acid am plification test detects fourteen high-risk HPV types (16,18,31,33,35,39,45,51,52,56,58,59,66,68)without differentiation. HPV 16+18+31+33+35+39+45+51+ 52+56+58+59+66+68 DNA Probe+sig amp Ql (Cvx)Ordered By: Selina Beal on 07-22-2024 Human Papillomavirus High Risk Negative Negative [facility] Comment on above: This nucleic acid am plification test detects fourteen high-risk HPV types (16,18,31,33,35,39,45,51,52,56,58,59,66,68)without differentiation. Image-guided ThinPrep PapOrd ered By: Selina Beal on 07-22-2024 Pap Smear Note Comment . [facility] Comment on above: This liquid based Th inPrep(R) pap test was screened withthe use of an image guided system. Image-guided liquid-based Pa pOrdered By: Selina Beal on 07-22-2024 Pap Smear Diagnosis Comment . [facility] Comment on above: NEGATIVE FOR INTRAEP ITHELIAL LESION OR MALIGNANCY.CELLULAR CHANGES ASSOCIATED WITH ATROPHY ARE PRESENT. Laboratory - CytologyOrdered By: Selina Beal on 07-22-2024 Acoustical Logging Engineer Cyto stain Nom (Cvx/Vag) [ID] Comment . [facility] Comment on above: Adrian frye, Sales Technician (ASCP) Laboratory - Miscellaneous t estsOrdered By: Selina Beal on 07-22-2024 Service comment (Unsp spec) [Interp] . . [facility] No Panel InformationOrdered By: Selina Beal on 07-22-2024 Pap Smear Specimen Adequacy Comment . [facility] Comment on above: Satisfactory for bridger luation. Endocervical and/or squamous metaplasticcells (endocervical component) are present. Executive Legal Secretary Office Visit Reporton 07-22-2024 Executive Legal Secretary Office Visit Report [facility] [address], [address] [place] [address] OFFICE VISIT Date of Service: 07/22/24 MR#: [id number] Acct: [id number] Name: HIGHFRANCHESKA SERGE Rep #: [id number] : 1955 Provider: Dr. 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 Normal [facility] Service comment (Unsp spec) [Interp]Ordered By: Selina Beal on 07-22-2024 Pap Smear Comment (3) . . [facility] Surgery Specimen Level Sandi 07-22-2024 Surgery Specimen Level IV ---- Patient Age/Sex Location Account Attending Physician ---- FRANCHESKA CROSS 68/F LABSPEC [id number] Dr. Selina Beal MD ---- Specimen: [id number] Received: 07/22/24 Status: MARISA Cisneros Num: [id number] Spec Type: ENDOM BX/C Subm Dr: Dr. [...] is totally submitted in one cassette. 07/22/2024 CPT:04575 ---- Patient Age/Sex Location Account Attending Physician ---- FRANCHESKA CROSS 68/F [facility] [id number] Dr. Selina Beal MD ---- Signed (signature on file) Dr. Terri Dykes MD 07/24/24 1644 ---- Normal [facility] Comment on above: Performed By: #### L 501.080 #### [facility] [place], [address] Decalcification bone/plaqueo n 05-18-2024 Decalcification bone/plaque ---- Patient Age/Sex Location Account Attending Physician ---- FRANCHESKA CROSS 68/F [facility] [id number] Dr. Emerson Miranda MD ---- Specimen: [id number] Received: 05/18/24 Status: MARISA Cisneros Num: [id number] Spec Type: TOTAL KNEE Subm Dr: Dr. [...] prominent osteophyte formation, eburnation and bone erosion. Rn Transition sections are submitted in two cassettes as follows: 1 - soft tissue, 2 - bone after decalcification. / GWEN. 05/19/2024 TC:5 CPT: 77435, 81673 ---- Patient Age/Sex Location Account Attending Physician ---- FRANCHESKA CROSS 68/F [facility] [id number] Dr. Emerson Miranda MD ---- Signed (signature on file) Dr. José Miguel Lujan MD 05/22/24 1446 ---- Normal [facility] Comment on above: Performed By: #### L 501.080 #### [facility] [address] [place] [address], [address] 12 Lead EKGon 05-12-2024 12 Lead EKG [facility] Cardiovascular Services [address] [place] [address] 12 Lead EKG 05/12/24 0957 MR#: [id number] Acct: [id number] Name: FRANCHESKA CROSS Rep #: [id number] : 1955 68 From: Marcelo Vizcaino MD [...] abnormality Abnormal ECG Confirmed by Marcelo Vizcaino ([id number]), health editor HANNA GARZA ([id number]) on 05/12/2024 1:19:27 PM Referred By: Emerson Miranda Confirmed By: Marcelo Vizcaino 05/12/24 1319 Date Marcelo Vizcaino MD CC: Dr. Janey Camp MD; Dr. Emerson Miranda MD Signed Normal [facility] Absolute neutrophil countOrd ered By: Emerson Miranda on 04-21-2024 Neutrophils (Bld) [#/Vol] 6.3 10*3/uL 2.0-7.7 [facility] Albumin, Serumon 04-21-2024 Albumin [Mass/Vol] 3.4 g/dL Normal 3.2-5.0 [facility] Comment on above: Performed By: #### L 100.0100 #### [facility] [address] [place], [place], [address] Basic Metabolic Profile (BMP )on 04-21-2024 BUN/CRE 20.4 RATIO High 10-20 [facility] Comment on above: Performed By: #### L 100.0100 #### [facility] [address] [place], [address] CA,Total 9.2 mg/dL Normal 8.5-10.1 [facility] Comment on above: Performed By: #### L 100.0100 #### [facility] [address] [place], [address] Chloride [Moles/Vol] 110 mmol/L High 98-107 [facility] Comment on above: Performed By: #### L 100.0100 #### [facility] [address] [place], [address] CO2 [Moles/Vol] 26.0 mmol/L Normal 21.0-32.0 [facility] Comment on above: Performed By: #### L 100.0100 #### [facility] [address] [place], [address] Creatinine [Mass/Vol] 1.13 mg/dL High 0.55-1.02 [facility] Comment on above: Result Comment: The validity of the calculated GFR GFRAA in patients over 70 years has not been determined. Clinical correlation is essential. Performed By: #### L 100.0100 #### [facility] [address] [place], [address] EST GFR - AA 61 mL/min Normal >60 [facility] Comment on above: Result Comment: Afri can [place] GFR Calc Performed By: #### L 100.0100 #### [facility] [address] [place], [address] GAP 5 Normal 5-15 [facility] Comment on above: Performed By: #### L 100.0100 #### [facility] [address] [place], [address] GFR/1.73 sq M.predicted among non-blacks MDRD (S/P/Bld) [Vol rate/Area] 51 mL/min/{1.73_m2} Low >60 [facility] Comment on above: Result Comment: Non- GFR Calc Performed By: #### L 100.0100 #### [facility] [address] [place], [address] Glucose [Mass/Vol] 103 mg/dL Normal 74-106 [facility] Comment on above: Result Comment: Fast ing Glucose result from 100 to 125 mg/dL suggests IMPAIRED HOMEOSTASIS per A.D.A. criteria. Performed By: #### L 100.0100 #### [facility] [address] [place], [address] Potassium [Moles/Vol] 3.5 mmol/L Normal 3.5-5.1 [facility] Comment on above: Performed By: #### L 100.0100 #### [facility] [address] [place], [address] Sodium [Moles/Vol] 142 mmol/L Normal 136-145 [facility] Comment on above: Performed By: #### L 100.0100 #### [facility] [address] [place], [address] Urea nitrogen [Mass/Vol] 23 mg/dL High - [facility] Comment on above: Performed By: #### L 100.0100 #### [facility] [address] [place], [address] Basophil percentageOrdered B y: Emerson Miranda on 04-21-2024 Basophils/100 WBC (Bld) 0.5 % 0-1 [facility] Blood urea nitrogen (BUN)/cr eatinine ratioOrdered By: Emerson Miranda on 04-21-2024 Urea nitrogen/Creatinine [Mass ratio] 20.4 mg/mg High 10- [facility] CBC W/Diff, Automatedon 04-05 Absolute Lymph 3.68 X10 3/uL Normal 0.83-4.51 [facility] Comment on above: Performed By: #### L 100.0100 #### [facility] [address] [place], [address] Absolute Neut 6.3 X10 3/uL Normal 2.0-7.7 [facility] Comment on above: Performed By: #### L 100.0100 #### [facility] [address] [place], [address] Basophils/100 WBC (Bld) 0.5 % Normal 0-1 [facility] Comment on above: Performed By: #### L 100.0100 #### [facility] [address] [place], [address] Eosinophils/100 WBC (Bld) 2.8 % Normal 0-5 [facility] Comment on above: Performed By: #### L 100.0100 #### [facility] [address] [place], [address] Erythrocyte distribution width (RBC) [Ratio] 14.0 % Normal 11.6-14.6 [facility] Comment on above: Performed By: #### L 100.0100 #### [facility] [address] [place], [address] Hematocrit (Bld) [Volume fraction] 39.8 % Normal 37-47 [facility] Comment on above: Performed By: #### L 100.0100 #### [facility] [address] [place], [address] Hemoglobin (Bld) [Mass/Vol] 12.7 g/dL Normal 12.0-15.0 [facility] Comment on above: Performed By: #### L 100.0100 #### [facility] [address] [place], [address] IG% 0.400 Normal 0.0-0.9 [facility] Comment on above: Result Comment: IG% - Immature Granulocytes (promyelocytes, myelocytes and metamyelocytes) > 1% indicates that a LEFT SHIFT is Present. Performed By: #### L 100.0100 #### [facility] [address] [place], [address] Lymphocytes/100 WBC (Bld) 33.2 % Normal 19-41 [facility] Comment on above: Performed By: #### L 100.0100 #### [facility] [address] [place], [address] MCH (RBC) [Entitic mass] 28.6 pg Normal 27.0-32.0 [facility] Comment on above: Performed By: #### L 100.0100 #### [facility] [address] [place], [address] MCHC (RBC) [Mass/Vol] 31.9 g/dL Low 32-36 [facility] Comment on above: Performed By: #### L 100.0100 #### [facility] [address] [place], [address] MCV (RBC) [Entitic vol] 89.6 fL Normal 81-99 [facility] Comment on above: Performed By: #### L 100.0100 #### [facility] [address] [place], [address] Monocytes/100 WBC (Bld) 6.7 % Normal 0-10 [facility] Comment on above: Performed By: #### L 100.0100 #### [facility] [address] [place], [address] Neutrophils/100 WBC (Bld) 56.4 % Normal 47-70 [facility] Comment on above: Performed By: #### L 100.0100 #### [facility] [address] [place], [address] Nucleated RBC (Bld) [#/Vol] 0 10*3/uL Normal 0-5 [facility] Comment on above: Performed By: #### L 100.0100 #### [facility] [address] [place], [address] Platelet mean volume (Bld) [Entitic vol] 9.6 fL Normal 6.2-12.0 [facility] Comment on above: Performed By: #### L 100.0100 #### [facility] [address] [place], [address] Platelets (Bld) [#/Vol] 324 10*3/uL Normal 150-450 [facility] Comment on above: Performed By: #### L 100.0100 #### [facility] [address] [place], [address] RBC (Bld) [#/Vol] 4.44 10*6/uL Normal 4.2-5.4 [facility] Comment on above: Performed By: #### L 100.0100 #### [facility] [address] [place], [address] RDW SD 45.7 fl High 35.1-43.9 [facility] Comment on above: Performed By: #### L 100.0100 #### [facility] [address] [place], [address] WBC (Bld) [#/Vol] 11.1 10*3/uL High 4.4-11.0 [facility] Comment on above: Performed By: #### L 100.0100 #### [facility] [address] [facility] [place], [address] Carbon dioxide measurementOr dered By: Emerson Miranda on 04-21-2024 CO2 [Moles/Vol] 26.0 mmol/L 21.0-32.0 [facility] Chest PA and Lateralon 04-21 Chest PA and Lateral [facility] Imaging Services [address] [place] [address] Chest PA and Lateral MR#: [id number] Acct: [id number] Name: FRANCHESKA CROSS Rep #: [id number] : 1955 F 68 From: Joshua Warren MD PCP: Dr. Janey Camp MD Status: [facility] CLI Study: Chest PA and Lateral Date of Exam: 04/21/24 Exam# [id number] Ordering Dr: Emerson Miranda MD [id number] STUDY: X-RAY CHEST REASON FOR EXAM: Female, [...] Janey Camp MD; Dr. Emerson Miranda MD Informatics Nurse: Signed Normal [facility] Chloride measurementOrdered By: Emerson Miranda on 04-21-2024 Chloride [Moles/Vol] 110 mmol/L High 98-107 [facility] Eosinophil percentageOrdered By: Emerson Miranda on 04-21-2024 Eosinophils/100 WBC (Bld) 2.8 % 0-5 [facility] Erythrocyte distribution wid th ratioOrdered By: Emerson Miranda on 04-21-2024 Erythrocyte distribution width (RBC) [Ratio] 14.0 % 11.6-14.6 [facility] Erythrocyte distribution wid th standard deviationOrdered By: Emerson Miranda on 04-21-2024 Erythrocyte distribution width (RBC) [Entitic vol] 45.7 fL High 35.1-43.9 [facility] Estimated glomerular filtrat ion rate (GFR) AmericanOrdered By: Emerson Miranda on 04-21-2024 Estimated GFR (MDRD) Amer 61 mL/min >60 [facility] Comment on above: GFR Calc Glomerular filtration rate ( GFR) estimationOrdered By: Emerson Miranda on 04-21-2024 Estimated GFR (MDRD) Non-Af Amer 51 mL/min Low >60 [facility] Comment on above: Non- GFR Calc Glucose measurementOrdered B y: Emerson Miranda on 04-21-2024 Glucose [Mass/Vol] 103 mg/dL 74-106 [facility] Comment on above: Fasting Glucose resu lt from 100 to 125 mg/dL suggests IMPAIRED HOMEOSTASIS per A.D.A. criteria. Hematocrit Auto (Bld) [Volum e fraction]Ordered By: Emerson Miranda on 04-21-2024 Hematocrit (Bld) [Volume fraction] 39.8 % 37-47 [facility] Hemoglobin A1con 04-21-2024 HbA1c (Bld) [Mass fraction] 6.9 % High 3.8-5.6 [facility] Comment on above: Result Comment: Norm al < 5.7 % Prediabetic 5.7 - 6.4 % Diabetic >or= 6.5 % Please note range changes. Performed By: #### L 100.0100 #### [facility] [place], [address] Hemoglobin A1c percentageOrd ered By: Emerson Miranda on 04-21-2024 HbA1c (Bld) [Mass fraction] 6.9 % High 3.8-5.6 [facility] Comment on above: Normal < 5.7 % Predi abetic 5.7 - 6.4 % Diabetic >or= 6.5 % Please note range changes. Hemoglobin measurementOrdere d By: Emerson Miranda on 04-21-2024 Hemoglobin (Bld) [Mass/Vol] 12.7 g/dL 12.0-15.0 [facility] Immature granulocytes/100 WB C Auto (Bld)Ordered By: Emerson Miranda on 04-21-2024 Immature granulocytes/100 WBC (Bld) 0.400 % 0.0-0.9 [facility] Comment on above: IG% - Immature Granu locytes (promyelocytes, myelocytes and metamyelocytes) > 1% indicates that a LEFT SHIFT is Present. Lymphocytes Auto (Unsp spec) [#/Vol]Ordered By: Emerson Miranda on 04-21-2024 Lymphocytes (Bld) [#/Vol] 3.68 10*3/uL 0.83-4.51 [facility] Lymphocytes/100 WBC Auto (Un sp spec)Ordered By: Emerson Miranda on 04-21-2024 Lymphocytes/100 WBC (Bld) 33.2 % 19-41 [facility] MCV (mean corpuscular volume ) determinationOrdered By: Emerson Miranda on 04-21-2024 MCV (RBC) [Entitic vol] 89.6 fL 81-99 [facility] Mean corpuscular hemoglobin (MCH) determinationOrdered By: Emerson Miranda on 04-21-2024 MCH (RBC) [Entitic mass] 28.6 pg 27.0-32.0 [facility] Mean corpuscular hemoglobin concentration (MCHC) determinationOrdered By: Emerson Miranda on 04-21-2024 MCHC (RBC) [Mass/Vol] 31.9 g/dL Low 32-36 [facility] Mean platelet volume determi nationOrdered By: Emerson Miranda on 04-21-2024 Platelet mean volume (Bld) [Entitic vol] 9.6 fL 6.2-12.0 [facility] Monocyte percentageOrdered B y: Emerson Miranda on 04-21-2024 Monocytes/100 WBC (Bld) 6.7 % 0-10 [facility] Neutrophil percentageOrdered By: Emerson Miranda on 04-21-2024 Neutrophils/100 WBC (Bld) 56.4 % 47-70 [facility] Nucleated red blood cell per centageOrdered By: Emerson Miranda on 04-21-2024 Nucleated RBC/100 WBC (Bld) [Ratio] 0 % 0-5 [facility] Platelet countOrdered By: Samaria Miranda on 04-21-2024 Platelets (Bld) [#/Vol] 324 10*3/uL 150-450 [facility] Potassium measurementOrdered By: Emerson Miranda on 04-21-2024 Potassium [Moles/Vol] 3.5 mmol/L 3.5-5.1 [facility] RBC Auto (Bld) [#/Vol]Ordere d By: Emerson Miranda on 04-21-2024 RBC (Bld) [#/Vol] 4.44 10*6/uL 4.2-5.4 [facility] Serum anion gap measurementO rdered By: Emerson Miranda on 04-21-2024 Anion gap [Moles/Vol] 5 mmol/L 5-15 [facility] Serum or plasma albumin martin urement (mass/volume)Ordered By: Emerson Miranda on 04-21-2024 Albumin [Mass/Vol] 3.4 g/dL 3.2-5.0 [facility] Serum or plasma calcium martin urement (mass/volume)Ordered By: Emerson Miranda on 04-21-2024 Calcium [Mass/Vol] 9.2 mg/dL 8.5-10.1 [facility] Serum or plasma creatinine m easurement (mass/volume)Ordered By: Emerson Miranda on 04-21-2024 Creatinine [Mass/Vol] 1.13 mg/dL High 0.55-1.02 [facility] Comment on above: The validity of the calculated GFR & GFRAA in patients over 70 years has not been determined. Clinical correlation is essential. Serum or plasma urea nitroge n measurement (mass/volume)Ordered By: Emerson Miranda on 04-21-2024 Urea nitrogen [Mass/Vol] 23 mg/dL High -18 [facility] Sodium levelOrdered By: Alison Miranda on 04-21-2024 Sodium [Moles/Vol] 142 mmol/L 136-145 [facility] White blood cell (WBC) count Ordered By: Emerson Miranda on 04-21-2024 WBC (Bld) [#/Vol] 11.1 10*3/uL High 4.4-11.0 [facility] Extremity Lower without Cont raon 03-31-2024 Extremity Lower without Contra [facility] Imaging Services [address] [place] [id number] Extremity Lower without Contra MR#: [id number] Acct: [id number] Name: FRANCHESKA CROSS Rep #: [id number] : 1955 F 68 From: Gordon Nicole MD PCP: Dr. Janey Camp MD Status: REG CLI Study: Extremity Lower without Contra Date of Exam: 05/31/23 Exam# [id number] Ordering Dr: Emerson Miranda MD [id number] EXAM: CT RIGHT LOWER EXTREMITY WITHOUT INTRAVENOUS [...] Janey Camp MD; Dr. Emerson Miranda MD Informatics Nurse: Signed Normal [facility] CBC W/Diff, Automatedon 11-0 Absolute Lymph 3.61 X10 3/uL Normal 0.83-4.51 [facility] Comment on above: Performed By: #### L 500.4100, L501.9520, L100.0100, L500.4050, L501.0900, L501.9985 #### [facility] [address] [place], [place], [id number] Absolute Neut 5.5 X10 3/uL Normal 2.0-7.7 [facility] Comment on above: Performed By: #### L 500.4100, L501.9520, L100.0100, L500.4050, L501.0900, L501.9985 #### [facility] [address] [place], [address] Basophils/100 WBC (Bld) 0.7 % Normal 0-1 [facility] Comment on above: Performed By: #### L 500.4100, L501.9520, L100.0100, L500.4050, L501.0900, L501.9985 #### [facility] [address] [place], [address] Eosinophils/100 WBC (Bld) 2.1 % Normal 0-5 [facility] Comment on above: Performed By: #### L 500.4100, L501.9520, L100.0100, L500.4050, L501.0900, L501.9985 #### [facility] [address] [place], [address] Erythrocyte distribution width (RBC) [Ratio] 13.5 % Normal 11.6-14.6 [facility] Comment on above: Performed By: #### L 500.4100, L501.9520, L100.0100, L500.4050, L501.0900, L501.9985 #### [facility] [address] [place], [address] Hematocrit (Bld) [Volume fraction] 39.7 % Normal 37-47 [facility] Comment on above: Performed By: #### L 500.4100, L501.9520, L100.0100, L500.4050, L501.0900, L501.9985 #### [facility] [address] [place], [address] Hemoglobin (Bld) [Mass/Vol] 13.1 g/dL Normal 12.0-15.0 [facility] Comment on above: Performed By: #### L 500.4100, L501.9520, L100.0100, L500.4050, L501.0900, L501.9985 #### [facility] [address] [place], [address] IG% 0.400 Normal 0.0-0.9 [facility] Comment on above: Result Comment: IG% - Immature Granulocytes (promyelocytes, myelocytes and metamyelocytes) > 1% indicates that a LEFT SHIFT is Present. Performed By: #### L 500.4100, L501.9520, L100.0100, L500.4050, L501.0900, L501.9985 #### [facility] [address] [place], [address] Lymphocytes/100 WBC (Bld) 36.4 % Normal 19-41 [facility] Comment on above: Performed By: #### L 500.4100, L501.9520, L100.0100, L500.4050, L501.0900, L501.9985 #### [facility] [address] [place], [address] MCH (RBC) [Entitic mass] 29.3 pg Normal 27.0-32.0 [facility] Comment on above: Performed By: #### L 500.4100, L501.9520, L100.0100, L500.4050, L501.0900, L501.9985 #### [facility] [address] [place], [address] MCHC (RBC) [Mass/Vol] 33.0 g/dL Normal 32-36 [facility] Comment on above: Performed By: #### L 500.4100, L501.9520, L100.0100, L500.4050, L501.0900, L501.9985 #### [facility] [address] [place], [address] MCV (RBC) [Entitic vol] 88.8 fL Normal 81-99 [facility] Comment on above: Performed By: #### L 500.4100, L501.9520, L100.0100, L500.4050, L501.0900, L501.9985 #### [facility] [address] [place], [address] Monocytes/100 WBC (Bld) 5.4 % Normal 0-10 [facility] Comment on above: Performed By: #### L 500.4100, L501.9520, L100.0100, L500.4050, L501.0900, L501.9985 #### [facility] [address] [place], [address] Neutrophils/100 WBC (Bld) 55.0 % Normal 47-70 [facility] Comment on above: Performed By: #### L 500.4100, L501.9520, L100.0100, L500.4050, L501.0900, L501.9985 #### [facility] [address] [place], [address] Nucleated RBC (Bld) [#/Vol] 0 10*3/uL Normal 0-5 [facility] Comment on above: Performed By: #### L 500.4100, L501.9520, L100.0100, L500.4050, L501.0900, L501.9985 #### [facility] [address] [place], [address] Platelet mean volume (Bld) [Entitic vol] 9.7 fL Normal 6.2-12.0 [facility] Comment on above: Performed By: #### L 500.4100, L501.9520, L100.0100, L500.4050, L501.0900, L501.9985 #### [facility] [address] [place], [address] Platelets (Bld) [#/Vol] 374 10*3/uL Normal 150-450 [facility] Comment on above: Performed By: #### L 500.4100, L501.9520, L100.0100, L500.4050, L501.0900, L501.9985 #### [facility] [address] [place], [address] RBC (Bld) [#/Vol] 4.47 10*6/uL Normal 4.2-5.4 [facility] Comment on above: Performed By: #### L 500.4100, L501.9520, L100.0100, L500.4050, L501.0900, L501.9985 #### [facility] [address] [place], [address] RDW SD 43.8 fl Normal 35.1-43.9 [facility] Comment on above: Performed By: #### L 500.4100, L501.9520, L100.0100, L500.4050, L501.0900, L501.9985 #### [facility] [address] [place], [address] WBC (Bld) [#/Vol] 9.9 10*3/uL Normal 4.4-11.0 [facility] Comment on above: Performed By: #### L 500.4100, L501.9520, L100.0100, L500.4050, L501.0900, L501.9985 #### [facility] [address] [place], [address] Comprehensive Metabolic [facility] 03-13-2024 Albumin [Mass/Vol] 3.6 g/dL Normal 3.2-5.0 [facility] Comment on above: Performed By: #### L 500.4100, L501.9520, L100.0100, L500.4050, L501.0900, L501.9985 #### [facility] [address] [place], [address] Albumin/Globulin [Mass ratio] 1.1 {ratio} Normal 0.9-2.4 [facility] Comment on above: Performed By: #### L 500.4100, L501.9520, L100.0100, L500.4050, L501.0900, L501.9985 #### [facility] [address] [place], [address] ALK P 44 U/L Low 45-117 [facility] Comment on above: Performed By: #### L 500.4100, L501.9520, L100.0100, L500.4050, L501.0900, L501.9985 #### [facility] [address] [place], [address] ALT [Catalytic activity/Vol] 15 U/L Normal 13-56 [facility] Comment on above: Performed By: #### L 500.4100, L501.9520, L100.0100, L500.4050, L501.0900, L501.9985 #### [facility] [address] [place], [address] AST [Catalytic activity/Vol] 9 U/L Low 15-37 [facility] Comment on above: Performed By: #### L 500.4100, L501.9520, L100.0100, L500.4050, L501.0900, L501.9985 #### [facility] [address] [place], [address] Bilirubin [Mass/Vol] 0.60 mg/dL Normal 0.20-1.00 [facility] Comment on above: Result Comment: For patients on eltrombopag therapy, use of Dimension [place] TBIL is not recommended. Performed By: #### L 500.4100, L501.9520, L100.0100, L500.4050, L501.0900, L501.9985 #### [facility] [address] [place], [address] BUN/CRE 21.4 RATIO High 10-20 [facility] Comment on above: Performed By: #### L 500.4100, L501.9520, L100.0100, L500.4050, L501.0900, L501.9985 #### [facility] [address] [place], [address] CA,Total 9.1 mg/dL Normal 8.5-10.1 [facility] Comment on above: Performed By: #### L 500.4100, L501.9520, L100.0100, L500.4050, L501.0900, L501.9985 #### [facility] [address] [place], [address] Chloride [Moles/Vol] 108 mmol/L High 98-107 [facility] Comment on above: Performed By: #### L 500.4100, L501.9520, L100.0100, L500.4050, L501.0900, L501.9985 #### [facility] [address] [place], [address] CO2 [Moles/Vol] 27.0 mmol/L Normal 21.0-32.0 [facility] Comment on above: Performed By: #### L 500.4100, L501.9520, L100.0100, L500.4050, L501.0900, L501.9985 #### [facility] [address] [place], [address] Creatinine [Mass/Vol] 0.98 mg/dL Normal 0.55-1.02 [facility] Comment on above: Result Comment: The validity of the calculated GFR GFRAA in patients over 70 years has not been determined. Clinical correlation is essential. Performed By: #### L 500.4100, L501.9520, L100.0100, L500.4050, L501.0900, L501.9985 #### [facility] [address] [place], [address] EST GFR - AA 72 mL/min Normal >60 [facility] Comment on above: Result Comment: Afri can [place] GFR Calc Performed By: #### L 500.4100, L501.9520, L100.0100, L500.4050, L501.0900, L501.9985 #### [facility] [address] [place], [address] GAP 5 Normal 5-15 [facility] Comment on above: Performed By: #### L 500.4100, L501.9520, L100.0100, L500.4050, L501.0900, L501.9985 #### [facility] [address] [place], [address] GFR/1.73 sq M.predicted among non-blacks MDRD (S/P/Bld) [Vol rate/Area] 60 mL/min/{1.73_m2} Normal >60 [facility] Comment on above: Result Comment: Non- GFR Calc Performed By: #### L 500.4100, L501.9520, L100.0100, L500.4050, L501.0900, L501.9985 #### [facility] [address] [place], [address] Globulin (S) [Mass/Vol] 3.3 g/dL Normal 2.2-4.2 [facility] Comment on above: Performed By: #### L 500.4100, L501.9520, L100.0100, L500.4050, L501.0900, L501.9985 #### [facility] [address] [place], [address] Glucose [Mass/Vol] 103 mg/dL Normal 74-106 [facility] Comment on above: Result Comment: Fast ing Glucose result from 100 to 125 mg/dL suggests IMPAIRED HOMEOSTASIS per A.D.A. criteria. Performed By: #### L 500.4100, L501.9520, L100.0100, L500.4050, L501.0900, L501.9985 #### [facility] [address] [place], [address] Potassium [Moles/Vol] 3.7 mmol/L Normal 3.5-5.1 [facility] Comment on above: Performed By: #### L 500.4100, L501.9520, L100.0100, L500.4050, L501.0900, L501.9985 #### [facility] [address] [place], [address] Sodium [Moles/Vol] 141 mmol/L Normal 136-145 [facility] Comment on above: Performed By: #### L 500.4100, L501.9520, L100.0100, L500.4050, L501.0900, L501.9985 #### [facility] [address] [place], [address] T PROT 6.9 g/dL Normal 6.4-8.2 [facility] Comment on above: Performed By: #### L 500.4100, L501.9520, L100.0100, L500.4050, L501.0900, L501.9985 #### [facility] [address] [place], [address] Urea nitrogen [Mass/Vol] 21 mg/dL High 7-18 [facility] Comment on above: Performed By: #### L 500.4100, L501.9520, L100.0100, L500.4050, L501.0900, L501.9985 #### [facility] [address] [place], [address] Hemoglobin A1con 03-13-2024 HbA1c (Bld) [Mass fraction] 6.9 % High 3.8-5.6 [facility] Comment on above: Result Comment: Norm al < 5.7 % Prediabetic 5.7 - 6.4 % Diabetic >or= 6.5 % Please note range changes. Performed By: #### L 501.080 #### [facility] [address] [place], [address] Lipid Profileon 03-13-2024 Cholesterol [Mass/Vol] 145 mg/dL Normal 200 [facility] Comment on above: Result Comment: <200 mg/dL Desirable 200-240 mg/dL Borderline >240 mg/dL High Risk Performed By: #### L 500.4100, L501.9520, L100.0100, L500.4050, L501.0900, L501.9985 #### [facility] [address] [place], [address] Cholesterol in HDL [Mass/Vol] 31 mg/dL Low [facility] Comment on above: Result Comment: The drugs N-Acetylcysteine and Metamizole may falsely depress this assay. Reference Range HDL <40 mg/dL Low HDL Cholesterol HDL >or= 60 mg/dL High HDL Cholesterol Performed By: #### L 500.4100, L501.9520, L100.0100, L500.4050, L501.0900, L501.9985 #### [facility] [address] [place], [address] Cholesterol in LDL [Mass/Vol] 91 mg/dL Normal 0-130 [facility] Comment on above: Performed By: #### L 500.4100, L501.9520, L100.0100, L500.4050, L501.0900, L501.9985 #### [facility] [address] [place], [address] Cholesterol in VLDL [Mass/Vol] 23 mg/dL Normal 5-40 [facility] Comment on above: Performed By: #### L 500.4100, L501.9520, L100.0100, L500.4050, L501.0900, L501.9985 #### [facility] [address] [place], [address] Triglyceride [Mass/Vol] 113 mg/dL Normal [facility] Comment on above: Result Comment: The drugs N-Acetylcysteine and Metamizole may falsely depress this assay. Serum Triglycerides Reference Interval Normal <150 mg/dL Borderline high 150 - 199 mg/dL High 200 - 499 mg/dL Very High > or = 500 mg/dL Performed By: #### L 500.4100, L501.9520, L100.0100, L500.4050, L501.0900, L501.9985 #### [facility] [address] [place], [address] Protein+Creatinine Ratio,Uri neon 03-13-2024 PROT:CRE RATIO 67 mg/g CRE Normal 0-200 [facility] Comment on above: Performed By: #### L 501.080 #### [facility] [address] [place], [address] Protein (U) [Mass/Vol] 6.2 mg/dL Normal <11.9 [facility] Comment on above: Performed By: #### L 501.080 #### [facility] [address] [place], [address] UR CREAT 92.60 mg/dL Normal NO RANGE EST. [facility] Comment on above: Performed By: #### L 501.080 #### [facility] [address] [place], [address] Thyroid Stim Hormone (TSH)on 03-13-2024 TSH 2.240 uIU/mL Normal 0.358-3.740 [facility] Comment on above: Performed By: #### L 501.080 #### [facility] [address] [place], [address] Basophil percentageon 2021 Chloride [Moles/Vol] 107 mmol/L 98-107 [facility] Work Phone: Cholesterol [Mass/Vol] 205 mg/dL <200 [facility] Work Phone: Comment on above: <200 mg/dL Desirable 200-240 mg/dL Borderline >240 mg/dL High Risk Glucose [Mass/Vol] 147 mg/dL 74-106 [facility] Work Phone: Comment on above: Fasting Glucose resu lt greater than or equal to 126 mg/dL suggests DIABETES MELLITUS per A.D.A. criteria. Potassium [Moles/Vol] 3.7 mmol/L 3.5-5.1 [facility] Work Phone: Sodium [Moles/Vol] 142 mmol/L 136-145 [facility] Work Phone: Triglyceride [Mass/Vol] 206 mg/dL <199 [facility] Work Phone: Comment on above: The drugs N-Acetylcy steine and Metamizole may falsely depress this assay.Serum Triglycerides Reference Interval Normal <150 mg/dL Borderline high 150 - 199 mg/dL High 200 - 499 mg/dL Very High > or = 500 mg/dL Laboratory - Chemistry and C hemistry - challengeon 10-23-2021 CO2 [Moles/Vol] 29.0 mmol/L 21.0-32.0 [facility] Work Phone: Urea nitrogen/Creatinine [Mass ratio] 14.8 mg/mg - [facility] Work Phone: [phone] Panel Informationon 10-23 Estimated GFR (MDRD) Amer 65 mL/min >60 [facility] Work Phone: Comment on above: GFR Calc Estimated GFR (MDRD) Non-Af Amer 54 mL/min >60 [facility] Work Phone: Comment on above: Non- GFR Calc Serum or plasma calcium martin urement (mass/volume)on 10-23-2021 Calcium [Mass/Vol] 9.3 mg/dL 8.5-10.1 [facility] Work Phone: Serum or plasma cholesterol in HDL measurement (mass/volume)on 10-23-2021 Cholesterol in HDL [Mass/Vol] 44 mg/dL >40 [facility] Work Phone: Comment on above: The drugs N-Acetylcy steine and Metamizole may falsely depress this assay. Reference Range HDL <40 mg/dL Low HDL Cholesterol HDL >or= 60 mg/dL High HDL Cholesterol Serum or plasma cholesterol in VLDL measurement (mass/volume)on 10-23-2021 Cholesterol in VLDL [Mass/Vol] 41 mg/dL 5-40 [facility] Work Phone: Serum or plasma creatinine m easurement (mass/volume)on 10-23-2021 Creatinine [Mass/Vol] 1.08 mg/dL 0.55-1.02 [facility] Work Phone: Comment on above: The validity of the calculated GFR & GFRAA in patients over 70 years has not been determined. Clinical correlation is essential. Serum or plasma low density lipoprotein (LDL) cholesterol measurement (mass/volume)on 10-23-2021 Cholesterol in LDL [Mass/Vol] 120 mg/dL 0-130 [facility] Work Phone: Serum or plasma urea nitroge n measurement (mass/volume)on 10-23-2021 Urea nitrogen [Mass/Vol] 16 mg/dL 7-18 [facility] Work Phone: Thin prep Papanicolaou smear with manual screeningon 10-23-2021 Thin prep Papanicolaou smear with manual screening 6 5-15 [facility] Work Phone: Vital Signs Date Time Vital Sign Value Performing Clinician Faci lity 11-09-2024 10:19-0400 Body height 167.[address] Janey Camp MD Work Phone: [facility] 11-09-2024 10:170400 Body mass index (BMI) [Ratio] 32.5 kg/m2 Dr. Janey Camp MD Work Phone: [facility] 11-09-2024 10:17-0400 Body weight 91.[address] Janey Camp MD Work Phone: [facility] 11-09-2024 10:17-0400 Diastolic blood pressure 91 mm[Hg] Dr. Janey Camp MD Work Phone: [facility] 11-09-2024 10:17-0400 Systolic blood pressure 145 mm[Hg] Dr. Janey Camp MD Work Phone: [facility] 10-13-2024 10:44-0400 Body height 167.[address] Janey Camp MD Work Phone: [phone])215-387413 [place] [address] 10-13-2024 10:36-0400 Body mass index (BMI) [Ratio] 31.9 kg/m2 Dr. Janey Camp MD Work Phone: 1(515)986-157313 [place] [address] 10-13-2024 10:36-0400 Body weight 89.[address] Janey Camp MD Work Phone: 2(562)[phone] [place] [address] 10-13-2024 10:36-0400 Diastolic blood pressure 80 mm[Hg] Dr. Janey Camp MD Work Phone: 1(547)361-393713 [place] [address] 10-13-2024 10:36-0400 Systolic blood pressure 127 mm[Hg] Dr. Janey Camp MD Work Phone: [facility] 09-30-2024 08:18-0400 Body temperature 98.1 [degF] Dr. Janey Camp MD Work Phone: [facility] 09-30-2024 08:18-0400 Diastolic blood pressure 82 mm[Hg] Dr. Janey Camp MD Work Phone: [facility] 09-30-2024 08:18-0400 Heart rate 74 /min Dr. Janey Camp MD Work Phone: [facility] 09-30-2024 08:18-0400 Respiratory rate 17 /min Dr. Janey Camp MD Work Phone: [facility] 09-30-2024 08:18-0400 SaO2% (BldA) [Mass fraction] 95 % Dr. Janey Camp MD Work Phone: [facility] 09-30-2024 08:18-0400 Systolic blood pressure 121 mm[Hg] Dr. Janey Camp MD Work Phone: [facility] 09-30-2024 05:20-0400 Inhaled oxygen flow rate 2 L/min Dr. Janey Camp MD Work Phone: [facility] 09-29-2024 20:41-0400 Body temperature 98 [degF] Dr. Janey Camp MD Work Phone: [phone])053-972149 [address] 09-29-2024 20:41-0400 Diastolic blood pressure 69 mm[Hg] Dr. Janey Camp MD Work Phone: 2(952)453-719713 [place] [address] 09-29-2024 20:41-0400 Heart rate 80 /min Dr. Janey Camp MD Work Phone: 8(396)948-811549 [address] 09-29-2024 20:41-0400 Respiratory rate 16 /min Dr. Janey Camp MD Work Phone: 7([phone])363-954713 [place] [address] 09-29-2024 20:41-0400 SaO2% (BldA) [Mass fraction] 96 % Dr. Janey Camp MD Work Phone: [phone])042-149249 [address] 09-29-2024 20:41-0400 Systolic blood pressure 130 mm[Hg] Dr. Janey Camp MD Work Phone: [facility] 09-29-2024 19:45-0400 Inhaled oxygen flow rate 2 L/min Dr. Janey Camp MD Work Phone: [facility] 09-29-2024 15:49-0400 Body height 167.[address] Janey Camp MD Work Phone: 8([phone])930-689249 [address] 09-29-2024 15:49-0400 Body mass index (BMI) [Ratio] 32.4 kg/m2 Dr. Janey Camp MD Work Phone: [facility] 09-29-2024 15:49-0400 Body weight 91.[address] Janey Camp MD Work Phone: 7(054)294-558213 [place] [address] 09-23-2024 09:38-0400 Body height 167.[address] Janey Camp MD Work Phone: [facility] 09-23-2024 09:37-0400 Body mass index (BMI) [Ratio] 32 kg/m2 Dr. Janey Camp MD Work Phone: [facility] 09-23-2024 09:37-0400 Body weight 89.[address] Janey Camp MD Work Phone: 0([phone])839-967249 [address] 09-23-2024 09:37-0400 Diastolic blood pressure 75 mm[Hg] Dr. Janey Camp MD Work Phone: 7([phone])[phone] [place] [address] 09-23-2024 09:37-0400 Systolic blood pressure 113 mm[Hg] Dr. Janey Camp MD Work Phone: 0(599)598-113028 [place] [address] 08-14-2024 13:54-0400 Body mass index (BMI) [Ratio] 31.6 kg/m2 Dr. Janey Camp MD Work Phone: [phone])265-834949 [address] 08-14-2024 13:54-0400 Body weight 88.[address] Janey Camp MD Work Phone: 4(680)[phone] [place] [address] 08-14-2024 13:54-0400 Diastolic blood pressure 70 mm[Hg] Dr. Janey Camp MD Work Phone: 0([phone])[phone] [place] [address] 08-14-2024 13:54-0400 Systolic blood pressure 116 mm[Hg] Dr. Janey Camp MD Work Phone: [phone] [place] [address] 07-22-2024 10:23-0400 Body height 167.[address] Janey Camp MD Work Phone: [phone] [address] 07-22-2024 10:23-0400 Body mass index (BMI) [Ratio] 31.8 kg/m2 Dr. Janey Camp MD Work Phone: [phone] [place] [address] 07-22-2024 10:23-0400 Body weight 89.[address] Janey Camp MD Work Phone: [facility] 07-22-2024 10:23-0400 Diastolic blood pressure 84 mm[Hg] Dr. Janey Camp MD Work Phone: [facility] 07-22-2024 10:23-0400 Systolic blood pressure 133 mm[Hg] Dr. Janey Camp MD Work Phone: [facility] Encounters Encounter Date Encounter Type Care Provider Facility Start: 03-17-[address] [facility] Facility: [facility] Start: 11-27-2024 End: 11-27-[address] Janey Camp MD Work Phone: -[facility] Start: 11-27-2024 End: 11-27-[address] Allyson Hercules DO -[facility]patient [facility] Work Phone: Start: 11-27-2024 End: 11-27-2024 ambulatory Allyson Hercules Facility:[facility] Start: 11-09-2024 End: 11-09-[address] Allyson Hercules DO -[facility] Work Phone: Start: 11-09-2024 End: 11-09-[address] Janey Camp MD Work Phone: -[facility] Start: 10-16-2024 Encounter for other preprocedural examination Allyson Hercules [facility] Start: 10-13-2024 End: 10-13-2024 Patient encounter procedure [facility] Work Phone: Start: 10-13-2024 End: 10-13-[address] Janey Camp MD Work Phone: [facility] Work Phone: Start: 09-30-2024 Non-patient / Non-visit Dr. Maged Hercules DO -[facility] Start: 09-29-2024 ambulatory Allyson Hercules Fa cility:[facility] Start: 09-29-2024 End: 09-30-2024 Evaluation and management of inpatient Dr. Allyson Hercules DO -[facility] 3 Work Phone: Start: 09-29-2024 End: 09-30-[address] Janey Camp MD Work Phone: [facility] Work Phone: Start: 09-29-2024 ambulatory Allyson Hercules Fa cility:[facility] Start: 09-29-2024 Non-patient / Non-visit Dr. Maged Hercules DO -[facility] Start: 09-29-2024 End: 09-30-2024 Admission to same day surgery center Dr. Allyson Hercules DO -[facility] Start: 09-29-2024 End: 09-30-[address] Janey Camp MD Work Phone: [facility] Work Phone: Start: 09-23-2024 End: 09-23-2024 ambulatory Allyson Hercules Facility:[facility] Start: 09-23-2024 End: 09-23-2024 Non-patient / Non-visit Dr. Maurice Mac MD -[facility] Work Phone: Start: 09-23-2024 End: 09-23-[address] Allyson Hercules DO -[facility] Work Phone: Start: 09-23-2024 End: 09-23-[address] Janey Camp MD Work Phone: [facility] Work Phone: Start: 09-23-2024 End: 09-23-[address] Janey Camp MD Work Phone: [facility] Work Phone: Start: 09-23-2024 End: 09-23-[address] Allyson Hercules DO [facility] Work Phone: Start: 09-23-2024 End: 09-23-2024 ambulatory Allyson Hercules Facility:[facility] Start: 08-14-2024 End: 08-14-[address] Allyson Hercules DO -[facility] Work Phone: Start: 08-14-2024 End: 08-14-2024 ambulatory Janey Camp [facility] Start: 08-05-2024 End: 08-05-[address] Janey Camp MD Work Phone: [facility] Work Phone: Start: 08-05-2024 End: 08-05-[address] Selina Beal MD -Lab, [facility] Start: 08-05-2024 End: 08-05-2024 ambulatory Selina Beal Facility:[facility] Start: 07-27-2024 End: 07-27-[address] Janey Camp MD Work Phone: [facility] Work Phone: Start: 07-27-2024 End: 07-27-[address] Selina Beal MD -Ultrasound, [facility] Work Phone: Start: 07-27-2024 End: 07-27-2024 ambulatory Selina Beal Facility:[facility] Start: 07-22-2024 End: 07-22-[address] Janey Camp MD Work Phone: [facility] Work Phone: Start: 07-22-2024 End: 07-22-[address] Selina Beal MD -Laboratory, Specimen Work Phone: Start: 07-22-2024 End: 07-22-[address] Selina Beal MD -[facility] Work Phone: Start: 07-22-2024 End: 07-22-2024 ambulatory Janey S Jolliff Facility:[facility] Start: 07-22-2024 End: 07-22-2024 ambulatory Selina Beal Facility:[facility] Start: 06-03-2024 Encounter for preprocedural cardiovascular examination Emerson [facility] Start: 05-22-2024 Encounter for preprocedural respiratory examination Emerson Miranda [facility] Start: 05-18-2024 End: 05-18-[address] Emerson Miranda MD -Laboratory, Specimen Work Phone: Start: 05-18-2024 End: 05-18-2024 ambulatory Emerson [place] Facility:[facility] Start: 05-12-2024 End: 05-12-2024 ambulatory Marcelo Carrillo Facility:[facility] Start: 05-12-2024 End: 05-12-2024 Non-patient / Non-visit Dr. Marcelo Vizcaino MD -[facility] Work Phone: Start: 05-12-2024 End: 05-12-[address] Emerson Miranda MD -Pulmonary Services/Neurology Work Phone: Start: 05-12-2024 End: 05-12-2024 ambulatory Emerson Miranda Facility:[facility] Start: 04-21-2024 End: 04-21-[address] Emerson Miranda MD -Laboratory Work Phone: Start: 04-21-2024 End: 04-21-2024 ambulatory Emerson [place] Facility:[facility] Start: 04-08-2024 Encounter for other preprocedural examination Janey S Jolliff [facility] Start: 03-31-2024 End: 03-31-[address] Emerson Miranda MD -Cat Scan, [facility] Work Phone: Start: 03-31-2024 End: 03-31-2024 ambulatory Emerson [place] Facility:[facility] Start: 03-13-2024 End: 03-13-2024 ambulatory Janey S Violetlliff Facility:[facility] Start: 07-22-2023 End: 07-22-2023 ambulatory [facility] Work Phone: Start: 07-22-2023 End: 07-22-2023 Patient encounter procedure [facility] Work Phone: Start: 10-23-2021 End: 10-23-2021 Patient encounter procedure [facility] Procedures Date Procedure Procedure Detail Performing Clinician [...] post hyst erectomy with oophorectomy [facility]en [facility] H/O: surgery Status post hyst erectomy with oophorectomy Dr. Allyson Hercules DO History of appendectomy S/P appendectomy History of cholecystectomy S/P cholecystectomy Plan of Treatment Date Care Activity Detail Author Start: 09-30-2024 Introduction of urinary catheter [facility] Start: 09-30-2024 Patient discharge [facility] Start: 09-30-2024 Complete blood count [facility] Start: 09-29-2024 Ambulation therapy management [facility] Start: 09-29-2024 Application of intermittent pneumatic compression device [facility] Start: 09-29-2024 Elevation of head of bed [facility] Start: 09-29-2024 End: 09-29-2024 Following clinical pathway protocol [facility] Start: 09-29-2024 Incentive spirometry [facility] Start: 09-29-2024 Measuring intake and output [facility] Start: 09-29-2024 Notification of physician [facility] Start: 09-29-2024 Oxygen therapy [facility] Start: 09-29-2024 Procedures relating to eating and drinking [facility] Start: 09-29-2024 Taking patient vital signs [facility] Start: 09-29-2024 Wound care [facility] Start: 09-29-2024 [facility] Start: 09-29-2024 Introduction of urinary catheter [facility] Start: 09-29-2024 Anesthesia intraperitoneal lower abd w/laps nos ANESTH SURG LOWER ABDOMEN [facility] Start: 09-29-2024 Laps total hysterect 250 gm/< w/rmvl tube/ovary TLH W/T/O 250 G OR LESS [facility] Start: 09-29-2024 Admission procedure [facility] Start: 09-29-2024 Patient referral to dietitian [facility] Start: 09-23-2024 CBC W Auto Differential panel - Blood [facility] Start: 09-23-2024 MRI of pelvis with contrast Pelvis W/WO Contrast [facility] Start: 07-27-2024 Transvaginal echography Transvaginal Non- [facility] Start: 07-27-2024 US Pelvis transvaginal [facility] Alanine aminotransfe rase [Enzymatic activity/volume] in Serum or Plasma [facility] Albumin [Mass/volume ] in Serum or Plasma [facility] Alkaline phosphatase [Enzymatic activity/volume] in Serum or Plasma [facility] Anion gap in Serum or Plasma [facility] Bilirubin, total measurement [facility] BUN/Creatinine ratio [facility] Calcium [Mass/volume ] in Serum or Plasma [facility] Carbon dioxide, tota l [Moles/volume] in Central venous blood [facility] Creatinine [Mass/vol ume] in Serum or Plasma [facility] Electrocardiographic procedure [facility] Erythrocyte mean cor puscular volume determination [facility] Glucose [Mass/volume ] in Serum or Plasma [facility] Hematocrit [Volume F raction] of Blood [facility] Hemoglobin [Mass/vol ume] in Blood [facility] Leukocytes [#/volume] in Blood [facility] Mean corpuscular hem oglobin concentration determination [facility] Mean corpuscular hem oglobin determination [facility] Measurement of renal function [facility] MG Breast - bilatera l Screening [facility] Patient referral [facility] Work Phone: Platelets [#/volume] in Blood [facility] Potassium measurement [facility] Red blood cell count [facility] Red cell distributio n width determination [facility] Serum chloride measurement [facility] Sodium measurement [facility] Total protein measurement [facility] Urea nitrogen [Mass/ volume] in Serum or Plasma [facility] Payers Date Payer Category Payer Medicare [id number] 2024 Self-pay [id number] 2024 Unknown [id number] Unknown [employer] [id number] Unknown [id number] 2.16.8 40.1.252181.3.579.2.462 Unknown [id number] 2.16.8 40.1.271126.3.579.2.462 Unknown [id number] 2.16.8 40.1.833991.3.579.2.462 Unknown [id number] 2.16.8 40.1.579933.3.579.2.462 Unknown [id number] 2.16.8 40.1.412185.3.579.2.462 Unknown [id number] 2.16.8 40.1.814552.3.579.2.462 Unknown [id number] 2.16.8 40.1.342027.3.579.2.462 Unknown [id number] 2.16.8 40.1.554243.3.579.2.462 Unknown [id number] 2.16.8 40.1.926817.3.579.2.462 Unknown [id number] 2.16.8 40.1.261875.3.579.2.462 Unknown [id number] 2.16.8 40.1.673401.3.579.2.462 Unknown [id number] 2.16.8 40.1.973851.3.579.2.462 Unknown [id number] 2.16.8 40.1.164523.3.579.2.462 Unknown [id number] 2.16.8 40.1.964022.3.579.2.462 Unknown [id number] 2.16.8 40.1.788664.3.579.2.462 Unknown [id number] 2.16.8 40.1.234305.3.579.2.462 Unknown [id number] 2.16.8 40.1.037079.3.579.2.462 Unknown [id number] 2.16.8 40.1.469715.3.579.2.462 Unknown [id number] 2.16.8 40.1.790082.3.579.2.462 Unknown [id number] 2.16.8 40.1.489142.3.579.2.462 Unknown [id number] 2.16.8 40.1.090364.3.579.2.462 Social History Date Type Detail Facility Start: 06-13-2017 Tobacco smoking status NHIS Unknown if ever smoked [facility] Start: 1955 Sex Assigned At Female [facility] Start: 01-24-2024 End: 09-15-2024 Tobacco smoking status NHIS Never smoked tobacco (finding) [facility] Start: 07-29-2024 End: 08-08-2024 Sex Female (finding) [facility] Not [facility] NEGATED: Highlighted row Not [facility] Medical Equipment Procedure Code Equipment Code Equipment Origin al Text Equipment Identifier Dates Robot-assisted total abdominal hysterectomy with bilateral salpingo-oophorectom y (SAMSON Collagen haemostatic agent, non-antimicrobial ()[id number] FDA Start: 09-29-2024 Robot-assisted total abdominal hysterectomy with bilateral salpingo-oophorectom y (SAMSON Plant polysaccharide haemostatic agent, bioabsorbable ()[id number] FDA Start: 09-29-2024 MESH,VENTLEX ST MED [...] Facility 09-30-2024 Functional status Patient Activity Chair [facility] Work Phone: 09-30-2024 Functional status Activity Abili ty Independent;Standby Assist [facility] Work Phone: 09-29-2024 Functional status Activity Ability Post O p [facility] Work Phone: Mental Status Date Assessment Result Facility 09-30-2024 Cognitive function Level Of Cons ciousness Awake;Alert;Appropriate;Follow s Commands [facility] Work Phone: 09-29-2024 Cognitive function Awake;Alert;A ppropriate;Follow s Commands [facility] Work Phone: 09-29-2024 Cognitive function Appropriate;Cooperativ e [facility] Work Phone: 09-29-2024 Cognitive function Arousable To Voice/Nam e [facility] Work Phone: Clinical Notes 07-22-2024 to 10-13-2024 Note Date & Type Note Facility 10-13-2024 Progress note [facility] 09-30-2024 Consult note [facility] 09-30-2024 Consult note [facility] 09-30-2024 Progress note Note Date/Time September 30, 2024 8:18am [facility] Medical Records Department [address] [place] [address] Progress Note - OBGYN 09/30/24 0815 MR#: [id number] Acct: [id number] Name: FRANCHESKA CROSS SERGE Rep #:[id number] : 1955 69 From: Allyson Hercules DO PCP: Dr. Janey Camp MD Status:ADM MIRANDA Location: MS3 NJ801-4 Subjective Subjective patient is up to bedside [...] Cosigner Signature (if applicable): CC: ~ Signed [facility] Work Phone: 1(577) 830-139705-28-2025 Progress note Author Allyson Deleon [facility] Note Date/Time September 30, 2024 8:18a m [facility] Medical Records Department [address] [place] [address] Progress Note - OBGYN 09/30/24814 MR#: [id number] Acct: [id number] Name: FRANCHESKA CROSS Rep #:[id number] : 1955 69 From: Allyson Hercules DO PCP: Dr. Janey Camp MD Status:ADM MIRANDA Location: MS3 RS482-8 Subjective Subjective patient is up to bedside [...] Cosigner Signature (if applicable): CC: ~ Signed [facility] Work Phone: 1(174) 747-521505-28-2025 Progress note [facility] Medical Records Department [address] [place] [address] Progress Note - OBGYN 09/30/24814 MR#: [id number] Acct: [id number] Name: FRANCHESKA CROSS Rep #:[id number] : 1955 69 From: Allyson Hercules DO PCP: Dr. Janey Camp MD Status:ADM MIRANDA Location: MS3 JN610-0 Subjective Subjective patient is up to bedside [...] Cosigner Signature (if applicable): CC: ~ Signed [facility]05-27-2025 Consult note Author Marcelo Vick [facility] Note Date/Time September 30, 2024 10:19 am [facility] Medical Records Department [address] [place] [address] Anesthesia Postop Eval II 09/29/24 1339 MR#: [id number] Acct: [id number] Name: FRANCHESKA CROSS Rep #:[id number] : 1955 69 From: Marcelo Vick CRNA PCP: Dr. Janey Camp MD Status:REG SDC Y Race: C Location: [place] [address]-1 Anesthesia Postop Eval I Sum Postop Eval Completion status Anesthesia document: Postop Eval 1 completed: Yes Anesthesia Postop Eval I Summary Anesthesia Postop Eval I Summary: Anesthesia Postop Eval I: Assessment Summary Airway patent Yes 09/29/24 13:38 REAL ESTATE LEGAL SECRETARY.MEDM Spontaneous unlabored Yes 09/29/24 13:38 REAL ESTATE LEGAL SECRETARY.MEDM respirations Mental status Awake,Calm 09/29/24 13:38 REAL ESTATE LEGAL SECRETARY.MEDM nausea No 09/29/24 13:38 REAL ESTATE LEGAL SECRETARY.MEDM Vomiting No 09/29/24 13:38 REAL ESTATE LEGAL SECRETARY.MEDM Anesthesia Postop Eval I: Fluid Summary Crystalloid volume administer 1,300 09/29/24 13:38 REAL ESTATE LEGAL SECRETARY.MEDM (ml) Colloids volume administered ( ml) Blood Product volume administered (ml) Total IV fluid infused 1,300 09/29/24 13:38 REAL ESTATE LEGAL SECRETARY.MEDM Anesthesia Postop Eval I: Summary Notes Anesthesia Complication No 09/29/24 13:38 REAL ESTATE LEGAL SECRETARY.MEDM Anesthesia Complication Comment: Post-operative progress note patient tolerated 09/29/24 13:38 REAL ESTATE LEGAL SECRETARY.MEDM well Anesthesia: Postop Eval II Evaluation Mental status: Awake and Calm Pain Level: 2 nausea: No Vomiting: No Complications Anesthesia Complication: No 09/29/24 1339 <Electronically signed by Marcelo cr CRNA> Date _ Marcelo Vick CRNA Cosigner Signature: Date CC: ~ Signed [facility] Work Phone: 1(943) 480-339005-27-2025 Consult note Author Marcelo Vick [facility] Note Date/Time September 29, 2024 1:38p [facility] Medical Records Department [address] [place] [address] [place] [address] Anesthesia Postop Eval I 09/29/24 1337 MR#: [id number] Acct: [id number] Name: FRANCHESKA CROSS Rep #:[id number] : 1955 69 From: Marcelo Vick CRNA PCP: Dr. Janey Camp MD Status:REG [facility] Y Race: C Location: [place] [address] Anesthesia: Postop Eval I Current Vital Signs [...] CRNA Cosigner Signature: Date CC: ~ Signed [facility] Work Phone: 1(642) 998-257805-27-2025 Procedure note [facility] Medical Records Department [address] [place] [address] Operative Report 09/29/24 1319 MR#: [id number] Acct: [id number] Name: FRANCHESKA CROSS Rep #:[id number] : 1955 69 From: Allyson Hercules DO PCP: Dr. Janey Camp MD Status:REG [facility] Location: [address] Problems Associated Problem List Diagnoses (1) Fibroid of cervix: (2) Postmenopausal bleeding: (3) Incisional hernia of anterior abdominal wall without obstruction or gangrene: Multi Select Codes Urinary/Genital Urinary/Genital CPT Codes: 76563 Cystoscopy, 28727 TLH+BS/O <250gr uterus and Other Procedure See Report (lysis of adhesions ) Operative Report (Standard) Operative Information Date of Procedure: 09/29/24 Pre-Operative Diagnosis: postmenopausal bleeding, cervical fibroid Post-Operative Diagnosis: postmenopausal bleeding, cervical fibroid, pelvic and abdominal adhesions Surgery/Procedure Performed: total robotic hysterectomy, right salpingo- oophorectomy, lysis of adhesions, cystoscopy assembly manager: Yes Crimper Assembler: Jong Saul Tasks completed by community assistant: Closing, Insert Trochanter, Trocar and Retracting Additional programs assistant?: No Type of Anesthesia: General RN [...] Next a left upper quadrant 8 mm programs assistant port sitewas placed to be used [...] Camp MD; Dr. Allyson Hercules DO~ Signed [facility]05-27-2025 Consult note [facility] Medical Records Department [address] [place] [address] Anesthesia Postop Eval I 09/29/24 1337 MR#: [id number] Acct: [id number] Name: FRANCHESKA CROSS Rep #:[id number] : 1955 69 From: Marcelo Vick REAL ESTATE LEGAL SECRETARY PCP: Dr. Janey Camp MD Status:REG [facility] Y Race: C Location: [place] [address] Anesthesia: Postop Eval I Current Vital Signs [...] Eval 1 completed: Yes 09/29/24 1338 ds REAL ESTATE LEGAL SECRETARY> Date _ Marcelo Vick REAL ESTATE LEGAL SECRETARY Cosigner Signature: Date CC: ~ Signed [facility]05-27-2025 History and physical note Author Allyson Deleon [facility] Note Date/Time September 29, 2024 10:06 am [facility] Medical Records Department [address] [place] [address] History & Physical Exam 09/29/24 0915 MR#: [id number] Acct: [id number] Name: FRANCHESKA CROSS Rep #:[id number] : 1955 69 From: Allyson Hercules DO PCP: Dr. Janey Camp MD Status:REG [facility] Location: [place] [address] History and Physical Date of Admission: 09/29/24 Intake Vital Signs 08/14/2512:54 09/23/2508:37 09/23/2508:38 Height 5 ft 6 in 5 ft 6 in 5 ft 6 in Weight: 196 lb 198 lb 4 oz BMI 31.6 32.0 BP 116/70 113/75 Intake Visit Reasons: TRH BSO cyst Forester Silviculture Required: No Is patient in pain?: No [...] Camp MD; Dr. Allyson Hercules DO~ Signed [facility] Work Phone: 1(776) 375-186105-27-2025 History and physical note Author Allyson Deleon [facility] Note Date/Time September 29, 2024 10:06 am [facility] Medical Records Department [address] [place] [address] History & Physical Exam 09/29/2415 MR#: [id number] Acct: [id number] Name: FRANCHESKA CROSS Rep #:[id number] : 1955 69 From: Allyson Hercules DO PCP: Dr. Janey Camp MD Status:REG SDC Location: [place] [address]- History and Physical Date of Admission: 09/29/24 Intake Vital Signs 08/14/2512:54 09/23/2508:37 09/23/2508:38 Height 5 ft 6 in 5 ft 6 in 5 ft 6 in Weight: 196 lb 198 lb 4 oz BMI 31.6 32.0 BP 116/70 113/75 Intake Visit Reasons: TRH BSO cyst Forester Silviculture Required: No Is patient in pain?: No [...] Camp MD; Dr. Allyson Hercules DO~ Signed [facility] Work Phone: 1(237) 405-875305-27-2025 Consult note Author Marcelo Vick [facility] Note Date/Time May 27th, 2025 9:59a m [facility] Medical Records Department [address] [place] [address] Pre-Anesthesia Evaluation 09/29/24 0958 MR#: [id number] Acct: [id number] Name: FRANCHESKA CROSS Rep #:[id number] : 1955 69 From: Marcelo Vick CRNA PCP: Dr. Janey Camp MD Status:REG SDC Y Race: C Location: [place] [address] ASA Classification* ASA Classification ASA Classification: 3 [...] BSO, Cystoscopy Anesthesia History Anesthesia History - plate cleaner: Anesthesia History - plate cleaner Hx Hospitalization No 09/15/24 14:08 Any Problems [...] take am of surgery PONV PONV - plate cleaner: PONV - plate cleaner Female Yes 09/15/24 14:08 HX of Motion [...] 09/29/24 09:11 Respiratory Assessment Respiratory Assessment - plate cleaner: Respiratory Tract Infection Hx - plate cleaner Hx Respiratory Tract Infection No 09/15/24 14:08 STOP Sleep Apnea STOP Sleep Apnea - plate cleaner: STOP Sleep Apnea - plate cleaner Hx Hypertension Yes 09/15/24 14:08 Hx Sleep [...] Tobacco Use History Tobacco Use History - plate cleaner: Tobacco Use History - plate cleaner Tobacco Use Smoking Status Never smoker 09/15/24 14:08 Hx Tobacco Use No 09/15/24 14:08 Years Smoking Packs Smoked per Day Smoking Cessation Date was within the last 15 years Hx Smoking Cessation Date Hx Smoking Cessation Counseling Hematologic Medial History Hematologic Hx - plate cleaner: Hematologic Medical Hx - vest presser Hx of Blood Transfusion No 09/15/24 14:08 Hx of Transfusion in last 3 No 09/15/24 14:08 Months Date of Last Transfusion (if within last 3 months) Ever experience any problems No 09/15/24 14:08 with transfusion(s)? Specify any problems Hx of Preganancy in last 3 No 09/15/24 14:08 Months Nurse Filling Out Transfusion VLEHSIMLA 09/15/24 14:08 & Questions: Date: 09/15/24 09/15/24 14:08 Time: 14:14 09/15/24 14:08 Patient unable to answer at this time (ie. confused, unrespo /Reproduction History /Reproductive History - plate cleaner: /Reproductive Hx- plate cleaner Hx Now No 09/15/24 14:08 Gestational Age [...] mls @ 70 mls/hr 09/29/24 10:20 IV .[id number] MICHELLE Magnesium Sulfate 1 gm/ 102 mls [...] 09/29/24 10:21 1 patch PREOP ONE Administration [facility] Medical History Wears glasses Diabetes Ambulates with [...] ROM 09/29/2459 <Electronically signed by Marcelo cr REAL ESTATE LEGAL SECRETARY> Date _ Marcelo Vick REAL ESTATE LEGAL SECRETARY Cosigner Signature: Date CC: ~ Signed [facility] Work Phone: 1(646) 527-920805-27-2025 Consult note Author John [facility] Note Date/Time September 29, 2024 9:40a [facility] Medical Records Department [address] [place] [address] Pre-Anesthesia Evaluation 09/29/24 0936 MR#: [id number] Acct: [id number] Name: FRANCHESKA CROSS Rep #:[id number] : 1955 69 From: John Jung MD PCP: Dr. Janey Camp MD Status:REG SDC Y Race: C Location: [place] [address] ASA Classification* ASA Classification ASA Classification: 2 [...] BSO, Cystoscopy Anesthesia History Anesthesia History - plate cleaner: Anesthesia History - plate cleaner Hx Hospitalization No 09/15/24 14:08 Any Problems [...] take am of surgery PONV PONV - plate cleaner: PONV - plate cleaner Female Yes 09/15/24 14:08 HX of Motion [...] 09/29/24 09:11 Respiratory Assessment Respiratory Assessment - plate cleaner: Respiratory Tract Infection Hx - plate cleaner Hx Respiratory Tract Infection No 09/15/24 14:08 STOP Sleep Apnea STOP Sleep Apnea - plate cleaner: STOP Sleep Apnea - plate cleaner Hx Hypertension Yes 09/15/24 14:08 Hx Sleep [...] Tobacco Use History Tobacco Use History - plate cleaner: Tobacco Use History - plate cleaner Tobacco Use Smoking Status Never smoker 09/15/24 14:08 Hx Tobacco Use No 09/15/24 14:08 Years Smoking Packs Smoked per Day Smoking Cessation Date was within the last 15 years Hx Smoking Cessation Date Hx Smoking Cessation Counseling Hematologic Medial History Hematologic Hx - plate cleaner: Hematologic Medical Hx - vest presser Hx of Blood Transfusion No 09/15/24 14:08 Hx of Transfusion in last 3 No 09/15/24 14:08 Months Date of Last Transfusion (if within last 3 months) Ever experience any problems No 09/15/24 14:08 with transfusion(s)? Specify any problems Hx of Preganancy in last 3 No 09/15/24 14:08 Months Nurse Filling Out Transfusion [facility] 09/15/24 14:08 & Questions: Date: 09/15/24 09/15/24 14:08 Time: 14:14 09/15/24 14:08 Patient unable to answer at this time (ie. confused, unrespo /Reproduction History /Reproductive History - plate cleaner: /Reproductive Hx- plate cleaner Hx Now No 09/15/24 14:08 Gestational Age [...] mls @ 70 mls/hr 09/29/24 10:20 IV .[id number] MICHELLE Magnesium Sulfate 1 gm/ 102 mls [...] MD Cosigner Signature: Date CC: ~ Signed [facility] Work Phone: [phone] Discharge summary Author Allyson Deleon [facility] Note Date/Time September 29, 2024 9:28a m [facility] Medical Records Department [address] [place] [address] Instructions for Home/Discharge Instructions 09/29/24924 MR#: [id number] Acct: [id number] Name: FRANCHESKA CROSS Rep #:[id number] : 1955 69 From: Allyson Hercules DO PCP: Dr. Janey Camp MD Status:REG [facility] Discharge Instructions Diet Discharge Diet: No restrictions [...] Care Provider: Janey Camp Instructions Print Language: St Helenian Discharge Orders/Prescriptions Prescriptions: New docusate sodium [Colace] [...] CC: Dr. Janey Camp MD ~ Signed [facility] Work Phone: [phone] Discharge summary Author Allyson Deleon [facility] Note Date/Time September 29, 2024 9:28a m [facility] Medical Records Department [address] [place] [address] Instructions for Home/Discharge Instructions 09/29/24 0925 MR#: [id number] Acct: [id number] Name: FRANCHESKA CROSS Rep #:[id number] : 1955 69 From: Allyson Hercules DO [...] Care Provider: Janey Camp Instructions Print Language: [place] Discharge Orders/Prescriptions Prescriptions: New docusate sodium [Colace] [...] CC: Dr. Janey Camp MD ~ Signed [facility] Work Phone: [phone] 174-692805-27-2025 History and physical note [facility] Medical Records Department [address] [place] [id number] History & Physical Exam 09/29/24914 MR#: [id number] Acct: [id number] Name: FRANCHESKA CROSS Rep #:[id number] : 1955 69 From: Allyson Hercules DO PCP: Dr. Janey Camp MD Status:[facility] Location: [place] [address] History and Physical Date of Admission: 09/29/24 Intake Vital Signs 08/14/2512:54 09/23/2508:37 09/23/2508:38 Height 5 ft 6 in 5 ft 6 in 5 ft 6 in Weight: 196 lb 198 lb 4 oz BMI 31.6 32.0 BP 116/70 113/75 Intake Visit Reasons: TRH BSO cyst Forester Silviculture Required: No Is patient in pain?: No [...] Camp MD; Dr. Allyson Hercules, DO~ Signed [facility]05-27-2025 Consult note [facility] Medical Records Department [address] [place] [address] Pre-Anesthesia Evaluation 09/29/24 0958 MR#: [id number] Acct: [id number] Name: FRANCHESKA CROSS Rep #:[id number] : 1955 69 From: Marcelo Vick CRNA PCP: Dr. Janey Camp MD Status:REG [facility] Y Race: C Location: [facility] ASA Classification* ASA Classification ASA Classification: 3 [...] BSO, Cystoscopy Anesthesia History Anesthesia History - plate cleaner: Anesthesia History - plate cleaner Hx Hospitalization No 09/15/24 14:08 Any Problems [...] take am of surgery PONV PONV - plate cleaner: PONV - plate cleaner Female Yes 09/15/24 14:08 HX of Motion [...] 09/29/24 09:11 Respiratory Assessment Respiratory Assessment - plate cleaner: Respiratory Tract Infection Hx - plate cleaner Hx Respiratory Tract Infection No 09/15/24 14:08 STOP Sleep Apnea STOP Sleep Apnea - plate cleaner: STOP Sleep Apnea - plate cleaner Hx Hypertension Yes 09/15/24 14:08 Hx Sleep [...] Tobacco Use History Tobacco Use History - plate cleaner: Tobacco Use History - plate cleaner Tobacco Use Smoking Status Never smoker 09/15/24 14:08 Hx Tobacco Use No 09/15/24 14:08 Years Smoking Packs Smoked per Day Smoking Cessation Date was within the last 15 years Hx Smoking Cessation Date Hx Smoking Cessation Counseling Hematologic Medial History Hematologic Hx - plate cleaner: Hematologic Medical Hx - vest presser Hx of Blood Transfusion No 09/15/24 14:08 Hx of Transfusion in last 3 No 09/15/24 14:08 Months Date of Last Transfusion (if within last 3 months) Ever experience any problems No 09/15/24 14:08 with transfusion(s)? Specify any problems Hx of Preganancy in last 3 No 09/15/24 14:08 Months Nurse Filling Out Transfusion [facility] 09/15/24 14:08 & Questions: Date: 09/15/24 09/15/24 14:08 Time: 14:14 09/15/24 14:08 Patient unable to answer at this time (ie. confused, unrespo /Reproduction History /Reproductive History - plate cleaner: /Reproductive Hx- plate cleaner Hx Now No 09/15/24 14:08 Gestational Age [...] mls @ 70 mls/hr 09/29/24 10:20 IV .[id number] MICHELLE Magnesium Sulfate 1 gm/ 102 mls [...] ROM Extremity full ROM 09/29/24 0959 ds REAL ESTATE LEGAL SECRETARY> Date _ Marcelo Vick REAL ESTATE LEGAL SECRETARY Cosigner Signature: Date CC: ~ Signed [facility]05-27-2025 Consult note [facility] Medical Records Department [address] [place] [address] Pre-Anesthesia Evaluation 09/29/2436 MR#: [id number] Acct: [id number] Name: FRANCHESKA CROSS Rep #:[id number] : 1955 69 From: John Jung MD PCP: Dr. Janey Camp MD Status:REG [facility] Y Race: C Location: [place] [address] ASA Classification* ASA Classification ASA Classification: 2 [...] BSO, Cystoscopy Anesthesia History Anesthesia History - plate cleaner: Anesthesia History - plate cleaner Hx Hospitalization No 09/15/24 14:08 Any Problems [...] take am of surgery PONV PONV - plate cleaner: PONV - plate cleaner Female Yes 09/15/24 14:08 HX of Motion [...] 09/29/24 09:11 Respiratory Assessment Respiratory Assessment - plate cleaner: Respiratory Tract Infection Hx - plate cleaner Hx Respiratory Tract Infection No 09/15/24 14:08 STOP Sleep Apnea STOP Sleep Apnea - plate cleaner: STOP Sleep Apnea - plate cleaner Hx Hypertension Yes 09/15/24 14:08 Hx Sleep [...] Tobacco Use History Tobacco Use History - plate cleaner: Tobacco Use History - plate cleaner Tobacco Use Smoking Status Never smoker 09/15/24 14:08 Hx Tobacco Use No 09/15/24 14:08 Years Smoking Packs Smoked per Day Smoking Cessation Date was within the last 15 years Hx Smoking Cessation Date Hx Smoking Cessation Counseling Hematologic Medial History Hematologic Hx - plate cleaner: Hematologic Medical Hx - vest presser Hx of Blood Transfusion No 09/15/24 14:08 [...] confused, unrespo /Reproduction History /Reproductive History - plate cleaner: /Reproductive Hx- plate cleaner Hx Now No 09/15/24 14:08 Gestational Age [...] mls @ 70 mls/hr 09/29/24 10:20 IV .[id number] MICHELLE Magnesium Sulfate 1 gm/ 102 mls [...] 09/29/24 10:21 1 patch PREOP ONE Administration [facility] Medical History Wears glasses Diabetes Ambulates with [...] MD Cosigner Signature: Date CC: ~ Signed [facility]05-27-2025 Discharge summary [facility] Medical Records Department [address] [place] [address] Instructions for Home/Discharge Instructions 09/29/24924 MR#: [id number] Acct: [id number] Name: FRANCHESKA CROSS #:[id number] : 1955 69 From: Allyson Hercules DO [...] Care Provider: Janey Camp Instructions Print Language: [place] Discharge Orders/Prescriptions Prescriptions: New docusate sodium [Colace] [...] CC: Dr. Janey Camp MD ~ Signed [facility]05-27-2025 [facility] Medical Records Department [address] [place] [address] History Physical Exam 09/29/24914 MR#: [id number] Acct: [id number] Name: FRANCHESKA CROSS Rep #: [id number] : 1955 69 From: Allyson Hercules DO PCP: Dr. Janey Camp MD Status:[facility] Location: [place] [address] History and Physical Date of Admission: 09/29/24 Intake Vital Signs 08/14/2512:54 09/23/2508:37 09/23/2508:38 Height 5 ft 6 in 5 ft 6 in 5 ft 6 in Weight: 196 lb 198 lb 4 oz BMI 31.6 32.0 BP 116/70 113/75 Intake Visit Reasons: TRH BSO cyst Forester Silviculture Required: No Is patient in pain?: No [...] normal respiratory effort Ski (more content not included)...[facility]05-21-2025 Hospital Discharge instructionsAmbulatory Orders* 12 Lead EKG [[facility]] Time Frame: 09/23/24, Location: None Selected [facility] Work Phone: [phone]) [phone] Evaluation note* Diagnosis Onset Date Resolution Status [...] oophorectomy acute November 09, 2024 1 0:15am [facility] Work Phone: 1(370) 768-407403-28-2025 Radiology Diagnostic study note [facility] Imaging Services [address] [place] [address] Transvaginal Non- MR#: [id number] Acct: [id number] Name: FRANCHESKA CROSS Rep #: [id number] : 1955 F 68 From: Samanta Hyman MD PCP: Dr. Janey Camp MD Status: REG CLI Study:Transvaginal Non- Date of Exam: 07/27/24 Exam# [id number] Ordering Dr: Selina Sam MD EXAM: US [...] Non- IMPRESSION: Fibroid as above. Reading Location: [facility] CC: Dr. Janey Camp MD; Dr. Selina Beal MD ~ Informatics Nurse: Signed [facility]03-19-2025 NotePap Smear Specimen AdequacyMarch 2024 11:59pmComment.Satisfactory for evaluation. Endocervical and/or squamous metaplasticcells (endocervical component)are present.[facility] INTERFACED A#[id number] Metrohealth SystemComment on above:Satisfactory for evaluation. Endocervical and/or squamous metaplasticcells (endocervical component)are present.07-22-2024 NotePap Smear Specimen AdequacyMarch 2024 11:59pmComment.Satisfactory for evaluation. Endocervical and/or squamous metaplasticcells (endocervical component)are present.[facility] INTER[facility]ED A#[id number] Metrohealth SystemComment on above:Satisfactory for evaluation. Endocervical and/or squamous metaplasticcells (endocervical component)are present.07-22-2024 NotePap Smear Specimen AdequacyMarch 2024 11:59pmComment.Satisfactory for evaluation. Endocervical and/or squamous metaplasticcells (endocervical component)are present.[facility] A#[id number] Metrohealth SystemComment on above:Satisfactory for evaluation. Endocervical and/or squamous metaplasticcells (endocervical component)are present.07-22-2024 Evaluation note* Diagnosis Onset Date Resolution Status Admit Date Postmenopausal bleeding acute M arch 2024 10:20am [facility] Work Phone: [phone] Evaluation note* Diagnosis Onset Date Resolution Status Admit Date Postmenopausal bleeding acute M arch 2024 10:20am Fibroid of cervix acute August 042024 2:03pm Postmenopausal bleeding acute A pril 2024 2:03pm Status post hysteroscopic polypectomy acute August 14, 2024 2:03pm HTN (hypertension) chronic August 14, 2024 2:03pm [facility] Work Phone: 1(812) 497-612803-19-2025 Evaluation note* Diagnosis Onset Date Resolution Status [...] without obstruction or gangrene chronic September 1:10pm [facility] Work Phone: [phone]) 417-468703-19-2025 Evaluation note* Diagnosis Onset Date Resolution Status [...] without obstruction or gangrene chronic September 1:10pm [facility] Work Phone: 1([phone]) 325-570803-19-2025 Evaluation note* Diagnosis Onset Date Resolution Status [...] without obstruction or gangrene chronic September 8:10am [facility] Work Phone: [phone]) [phone] Evaluation note* Diagnosis Onset Date Resolution Status [...] h oophorectomy acute October 13, 2024 10:35am [facility] Work Phone: Consult note Author Eve Willard [facility] Note Date/Time September 30, 2024 10:27 am [facility] Medical Records Department [address] [place] [address] Counseling Note - Pharmacy 09/30/24 1025 MR#: [id number] Acct: [id number] Name: FRANCHESKA CROSS Rep #:[id number] : 1955 69 From: Eve Willard PCP: Dr. Janey Camp MD Status:DIS MIRANDA Y Location: [place] [address] Pharmacy [facility] Counseling Pharmacy Service has performed discharge medication [...] Signature (if applicable): Date CC: ~ Signed [facility] Work Phone: Evaluation noteNo assessment information available [facility] Work Phone: Progress note Author Yen Felder [facility] Note Date/Time October 13, 2024 10:5 0am [facility] [address], [address] [place] [address] OFFICE VISIT Date of Service: 10/13/24 MR#: [id number] Acct: [id number] Name: FRANCHESKA CROSS Rep #: [id number] : 1955 Provider: NAMRATA Felder Age/Sex: 69/F Location[place] [facility] Status: Signed Intake Vital Signs 08/14/24 13:54 09/29/24 15:49 10/13/24 10:36 10/13/24 10:44 Height 5 ft 6 in 5 ft 6 in 5 ft 6 in 5 ft 6 in Weight: 198 lb 2 oz BMI 31.9 BP 127/80 H Intake Visit Reasons: 2 wk 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 Silviculture Required: No Is patient in pain?: No [...] menopausal: Yes Patient : No : [facility] Wears glasses Diabetes Ambulates with [...] 1050 <Electronically signed by Yen moeller NP [facility]> Date _ Yen Felder NP [facility] Cosigner Signature: Date (if applicable) CC: ~ [facility] Work Phone: Reason for referral (narrative)No reason for referral information availableWRegency Hospital Company Work Phone: Family History No Family History Records Found Relationship Condition Age at Onset Recorded Date/T fidel mother Hypertension Unknown father Diabetes mellitus Unknown son Seizure Unknown Advance Directives No Advanced Directives Records Found Advance Directive Response Recorded Date/ Time Living Will Yes May 23 10:07am Power of Store Lead Yes May 23, 2017 10:07am Advance Directive Response Recorded Date/ Time Living Will Yes January 22, 2024 2:35pm Do you have a Healthcare Power of Store Lead? Yes January 22, 2024 2:35pm Advance Directive Response Recorded Date/ Time Do you have a Healthcare Power of Store Lead? Yes September 29, 2024 3:49pm Chief Complaint [...] Provider Active Start: July 27, 2024 Dr. Seilna Beal MD Referring Provider Active Start: July [...] End: October 13, 2024 Yen Felder NP, [facility] Attending Provider Active Start: October 13, 2024 [...] 2024 End: October 13, 2024 Yen Felder [facility], [facility] Attending Provider Active Start: October 13, 2024 [...] End: October 13, 2024 Yen Felder NP, [facility] Attending Provider Active Start: October 13, 2024 End: October 13, 2024 Team Status: Inactive Member Role/Relationship Status Dates Dr. Janey Camp MD Primary Care Provider Active Start: November 09, 2024 End: November 09, 2024 Dr. Janey Camp MD Referring Provider Active Start: November 09, 2024 End: November 09, 2024 Dr. Allyson eHrcules DO Attending Provider Activ e Start: November [...] section and content) DATE CREATED AUTHOR 03/12/2025 [facility] FOR RECORDS PERTAINING TO PATIENTS WHO ARE [...] BE BASED ON THE PRIMARY CLINICAL RECORDS. [employer] [facility]. provides no warranty or guarantee of the accuracy or completeness of information in this document.
== END | disposition home or self-care (01) ==
LOC: MFPLAB 11:41
PROVIDERS: PCP Family Medicine; Visit Provider Family Medicine
DX: E04.1 Nontoxic single thyroid nodule (principal); E11.8 Type 2 diabetes mellitus with unspecified complications; E55.9 Vitamin D deficiency, unspecified
CPT/HCPCS: 36415; 80053; 80061; 82043; 82306; 82570; 82607; 82746; 83036; 84439; 84443; 85025; 86376; 86800

== ENCOUNTER → 2025-04-27 | Outpatient (CLI) | payer MEDICARE, OTHER, SELFPAY ==
--- NOTE | 2025-04-27 12:55 | US_ITS ---
PROCEDURE: THYROID 04/27/2025 REASON FOR EXAM: NODULE TECHNIQUE: Procedure Code: USTHY Modality: US Procedure: THYROID COMPARISON: None FINDINGS: Right thyroid lobe size: 3.8 x 0.8 x 1.1 cm Left thyroid lobe size: 3.3 x 0.6 x 1.2 cm Isthmus: 0.3 cm Background parenchymal echotexture is homogeneous. Nodules: 1. Lobe: Right, Location: Lower, Size: 0.5 x 0.5 x 0.5 cm, Stability: N/A Composition: Mixed cystic and solid (+1) Echogenicity: Hyper to Isoechoic (+1) Margin: Smooth (+0) Shape: Wider than tall (+0) Echogenic Foci: None (+0) TI-RADS: 2 2. Lobe: Left, Location: Lower, Size: 0.6 x 0.5 x 0.4 cm, Stability: N/A Composition: Cystic or mostly cystic (+0) Echogenicity: Hyper to Isoechoic (+1) Margin: Smooth (+0) Shape: Wider than tall (+0) Echogenic Foci: None (+0) TI-RADS: 1 US/Thyroid IMPRESSION: 2 thyroid nodules shortness above. They do not meet ACR criteria for sonograph ic follow-up or FNA. Further management per clinician's discretion. RECOMMENDATION: Based on most suspicious nodule. Nodule size = largest diameter Only evaluate nodule if =>5 mm. Growth > 20% in 2 dimensions = worsening. Follow up to 4 nodules. Recommend biopsy for no more than 2 nodules. Reading Location: [facility]
== END | disposition home or self-care (01) ==
LOC: US 12:50
PROVIDERS: PCP Family Medicine; Referring Provider Family Medicine; Visit Provider Family Medicine
DX: E04.1 Nontoxic single thyroid nodule (principal)
CPT/HCPCS: 76536